=== PATIENT | male | born 1960 | race Caucasian/White ===

== ENCOUNTER 2021-09-01 08:02 | Outpatient (REF) | payer OTHER, SELFPAY ==
[2021-09-01 11:09] LABS: MANUAL DIFF FLAG NO
[2021-09-01 11:26] LABS: Basophils Percent Auto 0.6 % (0-2); Eosinophils Absolute Auto 0.2 X10*3/uL (0.0-0.4); Hemoglobin 14.3 g/dl (14.0-18.0); Imm Gran Abs Auto 0.01 X10*3/uL (0.00-0.03); Imm Gran Pct Auto 0.2 % (0.0-0.4); Lymphocytes Absolute Auto 2.1 X10*3/uL (1.2-4.9); Lymphocytes Percent Auto 38.3 % (20-40); Mean Corpuscular Hemoglobin 31.2 pg (27.0-33.0); Mean Corpuscular Volume 91.7 fL (80.0-98.0); Mean Platelet Volume 11.8 fL (9.4-12.4); Monocytes Absolute Auto 0.6 X10*3/uL (0.1-1.2); Monocytes Percent Auto 10.5 % (2-11); Neutrophils Absolute Auto 2.5 x10*3/uL (2.0-8.3); Neutrophils Percent Auto 46.4 % (45-73); Platelet Count 143 X10*3/uL (160-400); Red Blood Count 4.58 X10*6/uL (4.60-5.80); Red Cell Distribution Width 12.4 % (11.0-16.0); White Blood Count 5.5 X10*3/uL (4.8-10.8)
[2021-09-01 11:56] LABS: Anion Gap 12 (12-20); Blood Urea Nitrogen 13 mg/dL (9-16); Calcium 9.2 mg/dL (8.4-10.2); Carbon Dioxide 26 mmol/L (22-29); Chloride 106 mmol/L (96-108); Cholesterol 232 mg/dL; Estimated Glomerular Filt Rate > 60; Glucose Fasting 116 mg/dL (60-99); HDL Cholesterol 32 mg/dL; LDL Cholesterol Calculated 186 mg/dl; Potassium 4.3 mmol/L (3.3-5.1); Sodium 140 mmol/L (135-145); Triglycerides 72 mg/dL
[2021-09-01 12:00] LABS: Estimated Average Glucose 105 mg/dL; Hemoglobin A1c % 5.3 %
[2021-09-02 22:46] LABS: Prolactin 13.5 ng/mL (2.0-18.0)
== END 2021-09-01 08:03 | disposition home or self-care (01) ==
LOC: HO.HMGCLDS 08:02
PROVIDERS: Visit Provider Clinical Nurse Specialist Psychiatric/Mental Health, Child & Adolescent
DX: F41.1 Generalized anxiety disorder (principal); Z51.81 Encounter for therapeutic drug level monitoring
CPT/HCPCS: 36415; 80048; 80061; 83036; 84146; 85025

== ENCOUNTER 2024-09-06 18:47 | Inpatient (IN) | payer OTHER, SELFPAY ==
[2024-09-06] VITALS (11 sets, daily range): BP systolic 103–149; BP diastolic 48–73; PULSE 94–125; RESP 24–35; TEMP 37.1–38.3; O2SAT 92–96; BMI 30.6
--- NOTE | 2024-09-06 | ECG_ITS ---
Test Reason : tachy Blood Pressure : */* mmHG Vent. Rate : 98 BPM Atrial Rate : 98 BPM P-R Int : 118 ms QRS Dur : 142 ms QT Int : 394 ms P-R-T Axes : 56 80 43 degrees QTcB Int : 503 ms Sinus rhythm with Premature atrial complexes Possible Left atrial enlargement Right bundle branch block Abnormal ECG When compared with ECG of 06-Sep-2024 23:16, Premature atrial complexes are now Present Referred By: Norma Benítez Electronically Signed By: GINA SHERWOOD MD
--- NOTE | ~2024-09-06 | CT_ITS ---
CLINICAL HISTORY: malignant OM left? CT head with contrast Comparison: None Findings: Scattered subcortical and periventricular hypoattenuation, likely in keeping with chronic small vessel ischemic disease. Parenchymal volume loss with compensatory prominence of the ventricles and CSF spaces. No acute territorial infarction, intracranial hemorrhage, midline shift or hydrocephalus. Small air-fluid level in the left sphenoid sinus may reflect sinusitis Right mastoid, middle ear effusions and diffuse opacification. There is diffuse lobulated enhancement with soft tissue thickening along the right external auditory canal, with effacement of the external auditory canal. Diffuse soft tissue edema along the cartilaginous portions of the right external ear. There is a small oval-shaped peripherally enhancing 7 mm collection along the anterior inferior aspect of the cartilaginous ear series 8, image 230 concerning for abscess. Minimal lobulated soft tissue in the left external auditory canal may reflect cerumen, nonspecific. The orbits are within normal limits. No skull fracture. IMPRESSION: 1. No acute intracranial hemorrhage or territorial infarction. 2. Abnormal findings in the right mastoid air cells, middle and external ear. Favor otitis media, externa with soft tissue abscess, and mastoiditis. Cholesteatoma amongst other etiologies not excluded either. Clinical correlation with the ENT consult advised. This document has been electronically signed by: Fred Birmingham MD on 09/06/2024 21:59:47
--- NOTE | ~2024-09-06 | XR_ITS ---
EXAMINATION: XR CHEST 1 VIEW HISTORY: hypoxia COMPARISON: Comparison is made with the prior examination dated 09/06/2024. FINDINGS: A single AP portable view of the chest performed at 12:39 PM is submitted. There is patchy increased density in the right mid to upper lung zone, suggestive of pneumonia. The left lung is clear. There is no pleural effusion, pneumothorax, or pulmonary vascular congestion. The heart is normal in size given technique. There is degenerative disc disease of the spine. XR/XR chest 1V IMPRESSION: Patchy increased density in the right mid to upper lung zone, suggestive of pneumonia. Follow-up is recommended. Electronically signed by: Femi Moore MD 09/07/2024 12:52 PM EDT
--- NOTE | ~2024-09-06 | CT_ITS ---
CLINICAL HISTORY: septic, better diff. cxr CT chest with contrast Comparison: None Findings: Cardiomegaly with small pericardial effusion. Coronary artery calcifications. Right anterior epicardial fluid density lobulated focus measuring 4 cm on coronal, closely abutting the pericardium. Finding may reflect a pericardial cyst. If clinical concern persists consider follow-up MRI. Diffuse esophageal mural thickening, nonspecific. Ill-defined tree-in-bud nodularity along the posterior aspects of the dependent upper lobes. Scattered isolated pulmonary nodules, measuring no more than 5 mm. Per Fleischner criteria: Low-risk patients: No routine follow-up required. High-risk patients: Optional CT at 12 months. No significant pleural effusion or pneumothorax. Please see same day CT abdomen pelvis report. Osteopenia with diffuse multilevel spondylosis. Diffuse atheromatous plaque disease throughout the aorta and branch vessels, without aneurysmal dilatation. IMPRESSION: 1. Ill-defined tree-in-bud nodularity along the posterior aspects of the dependent upper lobes. Aspiration or endobronchial pneumonia suspected. Attention on follow-up. 2. Additional findings as described. This document has been electronically signed by: Fred Birmingham MD on 09/07/2024 02:15:32
--- NOTE | ~2024-09-06 | MR_ITS ---
EXAMINATION: MR BRAIN WITHOUT AND WITH CONTRAST CLINICAL INFORMATION: COMPARISON: None available. TECHNIQUE: Multiplanar, multisequence MRI of the brain was obtained before and after the intravenous administration of mL . FINDINGS: Exam is moderately motion degraded on multiple pulsing sequences. This limits the sensitivity of the study. There is no intracranial diffusion restriction. There is diffusion restriction within the left superior ophthalmic vein suggesting thrombosis. There is no intracranial hemorrhage, acute infarction, mass effect, or edema. Ventricles, sulci, and cisterns are normal in size and configuration for patient age. No shift of midline. No abnormal hemosiderin deposition is identified. There are a few scattered punctate and minimally confluent foci of white matter T2 hyperintensity in the periventricular, subcortical, and hemispheric deep white matter, nonspecific. Midline structures appear normally formed. The pituitary gland appears normal. Posterior fossa structures appear normal. Cerebellar tonsils are appropriately located. Major flow voids are preserved within the skull base. There is high signal within the right sphenoparietal sinus (series 9, image 11), suggesting thrombosis. There is minimal left lobe proptosis. There is edema throughout the intra and extraconal left orbital fat. There is mild enlargement of the extraocular muscles, and mild enlargement of the superior ophthalmic vein. Of note there is loss of the flow void within the superior ophthalmic vein. There is preseptal soft tissue edema overlying the left orbit. Edema and enlargement of the right temporalis muscle is noted. There is minimal edema within the left suprazygomatic temporalis muscle as well. Right mastoid effusion is present extending throughout the right tympanic cavity. Mastoiditis is a consideration. Mild edema fluid in the TM joints bilaterally, and mild edema throughout compound specialist spaces bilaterally, uncertain significance or etiology. There is soft tissue edema and thickening of the external right ear soft tissues. Paranasal sinuses demonstrate mild fluid seen throughout the ethmoid sinuses, sphenoid sinuses, and minimal mucosal thickening in the maxillary sinuses. No suspicious bone marrow changes are evident. Atlantoaxial joint is normal. MR/MR head/brain wo/w con IMPRESSION: Moderately motion degraded examination. 1. No evidence of intracranial hemorrhage, acute infarction, mass effect, or edema. 2. Abnormalities of the left orbit including mild enlargement of the extraocular muscles, mild edema throughout the intra and extraconal fat, loss of the normal flow void of the superior ophthalmic vein, mild enlargement of the left superior ophthalmic vein, minimal left lobe proptosis, and left preseptal soft tissue edema. There may be thrombosis of the left superior ophthalmic vein. These findings all highly suggest LEFT cavernous sinus thrombosis although signal abnormalities in the actual left cavernous sinuses are not well seen. This could be due to motion. 3. Right mastoid tympanic space effusion and cerumen impaction in the right EAC. 4. There is edema and swelling throughout the right temporalis muscle, and involving the right greater than left muscles of mastication. This is of uncertain etiology, although direct extension of right mastoiditis is a consideration, as is RIGHT cavernous sinus thrombosis as well. 5. High signal within the right sphenoparietal sinus is also present suggesting thrombosis. 6. There is soft tissue edema and thickening of the external right ear soft tissues, suggesting otitis externa as well. Above findings communicated to via secure text at 12:05 PM, 07/10/2024, who indicated understanding of the findings. Electronically signed by: Abisai Austin MD 09/07/2024 12:09 PM EDT
--- NOTE | ~2024-09-06 | MR_ITS ---
EXAMINATION: MR MAMMOGRAPHY BRAIN WITH CONTRAST CLINICAL INFORMATION: Mastoiditis, left eye swelling, rule out cavernous sinus thrombosis. COMPARISON: None. Correlation made with MR brain 09/07/2024. TECHNIQUE: MR angiography of the brain was performed using 3-D [id number] and postcontrast dynamic sequences, both before and after the administration of 10 mL of IV Gadavist. FINDINGS: There is normal flow related enhancement within the major cortical and dural venous sinuses. There is no evidence of dural venous thrombosis. No filling defects identified. There is normal flow-related enhancement within both superior ophthalmic veins, although the left superior ophthalmic vein appears slightly enlarged. This can be a secondary finding for cavernous sinuses thrombosis. Please refer to the dedicated MRI postcontrast brain performed concurrently. MR/MR venography head wo/w con IMPRESSION: 1. Normal flow related enhancement in the major cortical and dural venous sinuses. 2. No filling defects are identified. 3. Normal flow related enhancement within the superior ophthalmic veins bilaterally although the left superior ophthalmic vein is slightly enlarged in comparison with the right, a finding which can be associated with cavernous sinus thrombosis. Please refer to the dedicated postcontrast MRI performed concurrently. Electronically signed by: Abisai Austin MD 09/07/2024 11:43 AM EDT
--- NOTE | ~2024-09-06 | CT_ITS ---
CLINICAL HISTORY: pain, new thrombocytopenia, septic CT abdomen and pelvis with contrast Comparison: None Findings: Motion and streak artifact limit evaluation. Diffuse esophageal mural thickening, nonspecific. Gynecomastia. Please see same day CT chest report. Hepatomegaly. Splenomegaly. Distended gallbladder. Thickening of the adrenal glands, nonspecific. Bilateral perinephric stranding, nonspecific. Right-sided hypodense renal cysts. No urolithiasis or hydronephrosis. Distended stomach with air-fluid level. No bowel obstruction. Fat containing umbilical hernia. Diffuse atheromatous plaque disease throughout the aorta and branch vessels, without aneurysmal dilatation. 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 Prostatomegaly noted. Scattered colonic diverticulosis without diverticulitis or colitis. Bladder is decompressed with mural thickening, nonspecific. Osteopenia with diffuse multilevel spondylosis. Chronic appearing mild vertebral body height loss at L3 with vertebral body hemangioma. Sacralization of the L5. IMPRESSION: No acute findings. Additional findings described, please see above. This document has been electronically signed by: Fred Birmingham MD on 09/06/2024 21:49:52
--- NOTE | ~2024-09-06 | XR_ITS ---
CLINICAL HISTORY: sob 1 view chest x-ray Comparison: None Findings: Bilateral infrahilar patchy opacities. Left basilar atelectasis. No significant pleural effusion or pneumothorax. Prominent cardiac silhouette. No acute fracture. IMPRESSION: 1. Bilateral infrahilar patchy opacities, correlation for pneumonia or aspiration advised. 2. Left basilar atelectasis. This document has been electronically signed by: Fred Birmingham MD on 09/06/2024 20:16:21
--- NOTE | 2024-09-06 19:26 | ED_ITS ---
HPI - General Adult General Chief complaint: Altered Mental Status Stated complaint: Allergic reaction to tylenol Time Seen by Provider: 09/06/24 19:10 Source: patient and family Limitations: other (confusion) History of Present Illness ED Provider: Renee Early PA-C HPI narrative: 63-year-old male with a history of prior alcohol abuse, anxiety, no other comorbidities to his or family's knowledge, presents with confusion. Patient is currently being treated for right ear infection x 3 days, he has slowly become more weak, and has not been eating or drinking. He also developed swelling of the left eye this morning. The patient has no physical concerns complaints himself, with the exception of right ear pain. History limited as the patient was somewhat confused. Related Data Home Medications ?Medication ?Instructions ?Recorded ?Confirmed carbamide peroxide 6.5 % ear drops 5 drp otic (ears) BID prn 09/07/24 09/07/24 (Murine Ear) fluoxetine 40 mg capsule 40 mg PO DAILY 09/07/24 09/07/24 ofloxacin 0.3 % ear drops 10 drp otic (ear) right DAILY 09/07/24 09/07/24 risperidone 0.5 mg tablet 0.5 mg PO BID 09/07/24 09/07/24 Previous Rx's ?Medication ?Instructions ?Recorded Vancomycin Consult Rx Dosing 1 ea miscellaneous DAILY #1 ea 09/07/24 [Consult Rx Vancomycin Dosing] caspofungin 50 mg intravenous 50 mg IV Q24H #1 ea 09/07/24 solution ([place]) erythromycin 5 mg/gram (0.5 %) eye 1 cm ophthalmic-Left QID #1 g 09/07/24 ointment ipratropium 0.5 mg-albuterol 3 mg 3 ml inhalation Q4H PRN Shortness 09/07/24 (2.5 mg base)/3 mL nebulization Of Breath/Wheezing #1 mL soln meropenem 1 gram intravenous 2 g IVPUSH Q8H #1 ea 09/07/24 solution Allergies Allergy/AdvReac Type Severity Reaction Status Date / Time No Known Allergies Allergy Verified 09/06/24 19:27 [No Known Allergies*] Review of Systems 2 Review of Systems: Yes all other systems are reviewed and are negative Constitutional: Constitutional: Reports fatigue, Reports fever(s) and Reports malaise Eyes: Eyes: Reports eye discharge ENT: Reports otalgia Cardiovascular: Cardiovascular: Denies chest pain and Denies dyspnea Respiratory: Respiratory: Denies chest congestion, Denies cough and Denies dyspnea Gastrointestinal: Gastrointestinal: Denies abdominal pain, Denies diarrhea, Denies nausea and Denies vomiting Genitourinary: Genitourinary: Denies dysuria Endocrine: Endocrine: Reports fatigue PMFSH Past Medical History Attestation statement: The following information was validated with the patient. Social History Social History (Updated 09/07/24 @ 06:27 by Norma Benítez [facility]) Household Members: Family Housing: Apartment Alcohol intake: former Comment: pt stopped drinking 15 years ago, drank 6-8 beers per day Patient Tobacco Use Status: Never used Tobacco service: No Physical Exam ED Vital Signs: Vital Signs - 24 hr 09/06/24 19:21 09/06/24 20:00 09/06/24 20:52 Temperature 100.5 F H Pulse Rate 125 H 112 H Respiratory Rate 24 H 24 H 32 H Blood Pressure 127/59 L 135/67 Pulse Oximetry 96 92 Oxygen Delivery Method Nasal Cannula Nasal Cannula Oxygen Flow Rate 3 09/06/24 21:30 09/06/24 22:00 09/06/24 22:55 Temperature 101.0 F H Pulse Rate 116 H 117 H 94 Respiratory Rate 30 H 24 H 24 H Blood Pressure 125/60 149/59 H 136/53 L Pulse Oximetry 95 94 95 Oxygen Delivery Method Nasal Cannula Nasal Cannula Nasal Cannula Oxygen Flow Rate 3 3 3 09/06/24 23:23 09/06/24 23:27 09/06/24 23:36 Temperature 98.9 F 98.9 F 98.9 F Pulse Rate 119 H 106 H Respiratory Rate 35 H 32 H Blood Pressure 122/65 122/65 Pulse Oximetry 92 Oxygen Delivery Method Nasal Cannula Oxygen Flow Rate 3 09/06/24 23:43 09/06/24 23:45 09/07/24 01:22 Temperature 98.8 F 98.8 F 98.2 F Pulse Rate 110 H 110 H 101 H Respiratory Rate 29 H 26 H 25 H Blood Pressure 103/48 L 103/48 L 120/49 L Pulse Oximetry 92 Oxygen Delivery Method Nasal Cannula Oxygen Flow Rate 3 09/07/24 02:30 09/07/24 02:49 09/07/24 02:50 Temperature Pulse Rate 103 H Respiratory Rate 24 H Blood Pressure 114/30 L Pulse Oximetry 91 L 87 L 92 Oxygen Delivery Method Nasal Cannula Nasal Cannula Oxymask Oxygen Flow Rate 3 3 6 09/07/24 03:22 09/07/24 03:50 Temperature 99.1 F Pulse Rate 98 105 H Respiratory Rate 27 H 28 H Blood Pressure 113/58 L 117/56 L Pulse Oximetry 92 93 Oxygen Delivery Method Oxymask Oxymask Oxygen Flow Rate 6 6 BMI result Body Mass Index 30.6 Const Other: Awake, ill-appearing, diaphoretic Orientation/consciousness: patient oriented x3 HENAL Other: Dry oral mucosa including lips and tongue. No tragal tenderness of the right ear, I see a wall of white, can not visualize the TM, the external ear canal is not erythematous. The left external ear canal is full of cerumen and appears erythematous, I can not visualize the left TM, no tragal tenderness, no palpable pain over the right mastoid, no warmth or erythema no swelling Eyes Other: Left palpebral conjunctiva are injected and edematous, the sclera is not injected, ocular discharge noted Resp Other: Bibasilar crackles noted right greater than left Cardio Other: Normal peripheral perfusion GI Other: Abdomen is soft, nondistended, mild to moderate tenderness that has random, without guarding stool is brown in color no melena no bright red blood per rectum Skin Other: Diaphoretic Neuro General: patient oriented x3, no focal motor deficits and CN's II-XI intact bilaterally Psych Other: Cooperative Course Reevaluation(s) Reevaluation #1: ?focused exam for sepsis performed on 09/04/2024, time stamped at 1926, which is listed below .....Sepsis identified, patient was febrile, tachy, in addition to screening labs we will be adding blood cultures, lactic, starting weight based IV fluid and ceftriaxone. He is 90% on room air, respiratory source is the likely cause, Time: 19:26 Reevaluation #2: ?focused exam for sepsis performed on 09/06 at 2018 which is also time stamped below .......Severe sepsis, lactic 5.1, although it also could be due to lab error, the tourniquet was in place when nursing staff was drawing the lab. Transitioning antibiotics to vancomycin and Zosyn Time: 20:18 Reevaluation #3: 2106 patient was critically thrombocytopenic at 7, we will be consenting for platelet transfusion, ordering platelets. The patient's sister is signing consent for him 2212 guaiac-positive stool 2316 patient's rate jumped to 200 on the monitor, he is asymptomatic, obtaining an EKG......... By the time we get the EKG which is just minutes later, his rate drops to 121...qtc 511, adding 2 gm magnesium 2328 Paged [facility] for consult. Dr. De León..... I reviewed results of the CT scan with her, she does not feel the patient has mastoiditis. The patient has no focal pain within this region, there was no overlying swelling, redness. She states despite what the CT scan reveals, this is not mastoiditis. She does not feel the patient requires a transfer to [facility], there is no surgical intervention. She does recommend obtaining a culture of the ear, which we already did, and placing an ear wick, I explained that we have moxifloxacin drops, she states that is sufficient. We will admit the patient here Also, the patient is improving, his mentation has improved, he was more alert, his blood pressure has been stable the entire duration, his heart rate is decreasing, his fever is resolving, Time: 23:28 Consultations Consultation #1: Dr. Molina....... I explained the situation, she recommends PT INR, no further recommendation Time: 21:46 Medications Administered Discontinued Medications Generic Name Dose Route Start Last Admin Trade Name Jennifer PRN Reason Stop Dose Admin Acetaminophen 975 mg 09/06/24 21:35 09/06/24 21:39 Acetaminophen 325 Mg Tablet PO 09/06/24 21:36 975 mg ONCE ONE Administration Ceftriaxone Sodium 2 gm 09/06/24 19:12 09/06/24 19:48 Ceftriaxone Sodium 2 Gm Vial IVPUSH 09/06/24 19:13 2 gm ONCE ONE Administration Erythromycin 1 cm 09/06/24 22:14 09/06/24 22:56 Erythromycin Base 0.5% Oph Oin 1 Gm Tube EYE-LEFT 09/06/24 22:15 1 cm ONCE ONE Administration Erythromycin 1 cm 09/07/24 09:00 09/07/24 12:46 Erythromycin Base 0.5% Oph Oin 1 Gm Tube EYE-LEFT 1 cm QID ZO Administration Fluoxetine HCl 40 mg 09/07/24 09:00 09/07/24 09:14 Fluoxetine Hcl 20 Mg Capsule PO Not Given DAILY ZO Gadobutrol 10 ml 09/07/24 11:11 09/07/24 11:12 Gadobutrol 10 Ml Vial IVPUSH 09/07/24 11:12 10 ml ONCE ONE Administration Sodium Chloride 3,066 mls @ 3,066 mls/hr 09/06/24 19:26 09/06/24 21:30 Ns 30 ml/kg infuse over 1 hr (3066 ml) 09/06/24 20:25 Infused IV Infusion .Q1H STA Vancomycin HCl 1,500 mg/ 500 mls @ 333.333 mls/hr 09/06/24 20:18 09/06/24 22:56 Sodium Chloride IV 09/06/24 21:47 Infused ONCE ONE Infusion Piperacillin Sod/Tazobactam 50 mls @ 100 mls/hr 09/06/24 20:18 09/06/24 21:33 Sod 3.375 gm/ Sodium Chloride IV 09/06/24 20:47 Infused ONCE ONE Infusion Magnesium Sulfate 2 gm in 50 mls @ 25 mls/hr 09/06/24 23:21 09/07/24 01:12 Magnesium Sulfate/H2o IV 09/07/24 01:20 Infused ONCE ONE Infusion Albumin Human 100 mls @ 133.333 mls/hr 09/06/24 23:45 09/07/24 03:23 Kedbumin 25 % IV 09/07/24 01:29 Infused Q1H ZO Infusion Sodium Chloride 1,000 mls @ 125 mls/hr 09/07/24 04:30 09/07/24 07:10 Ns IVCONT 09/07/24 12:29 Infused .Q8H ZO Infusion Piperacillin Sod/Tazobactam 100 mls @ 200 mls/hr 09/07/24 07:00 09/07/24 07:26 Sod 4.5 gm/ Sodium Chloride IV Infused Q6H ZO Infusion Vancomycin HCl 1,250 mg/ 250 mls @ 166.667 mls/hr 09/07/24 09:00 09/07/24 11:13 Sodium Chloride IV Not Given Q12H ZO Cefepime HCl 2 gm in 50 mls @ 100 mls/hr 09/07/24 09:15 09/07/24 11:13 Maxipime IV Not Given Q8H ZO Vancomycin HCl 1,250 mg/ 250 mls @ 166.667 mls/hr 09/07/24 11:00 09/07/24 13:11 Sodium Chloride IV Infused Q12H ZO Infusion Cefepime HCl 2 gm in 50 mls @ 100 mls/hr 09/07/24 11:15 09/07/24 11:57 Maxipime IV Infused Q8H ZO Infusion Iohexol 85 ml 09/06/24 20:40 09/06/24 20:41 Iohexol 350 Mg/Ml 100 Ml Infus..Btl IV 09/06/24 20:41 85 ml ONCE ONE Administration Ketorolac Tromethamine 15 mg 09/06/24 19:24 09/06/24 19:47 Ketorolac Tromethamine 15 Mg/Ml Vial IVPUSH 09/06/24 19:25 15 mg ONCE ONE Administration Lorazepam 0.5 mg 09/07/24 09:15 09/07/24 09:40 Lorazepam 0.5 Mg Tablet PO 09/07/24 09:16 0.5 mg ONCE ONE Administration Moxifloxacin HCl 1 drop 09/06/24 22:44 09/06/24 23:37 Moxifloxacin Hcl 0.5 % Oph Pratima 3 Ml Drpbtl EYE-RIGHT 09/06/24 22:45 1 drop ONCE ONE Administration Moxifloxacin HCl 1 drop 09/07/24 09:00 09/07/24 11:19 Moxifloxacin Hcl 0.5 % Oph Pratima 3 Ml Drpbtl EYE-RIGHT 09/14/24 04:29 1 drop TID ZO Administration Ondansetron HCl 4 mg 09/06/24 20:05 09/06/24 20:08 Ondansetron Hcl 4 Mg/2 Ml Vial IVPUSH 09/06/24 20:06 4 mg ONCE ONE Administration Pantoprazole Sodium 40 mg 09/07/24 06:30 09/07/24 06:45 Pantoprazole Sodium 40 Mg/10 Ml Vial IVPUSH 40 mg BID@0630,1630 ZO Administration Risperidone 0.5 mg 09/07/24 09:00 09/07/24 09:14 Risperidone 0.5 Mg Tablet PO Not Given BID ZO Sodium Chloride 3 ml 09/07/24 08:00 09/07/24 07:26 0.9 % Sodium Chloride Flush 3 Ml Syringe IVFLUSH Not Given QSHIFT [facility] Medical Decision Making Medical Decision Making [facility] Narrative: 63-year-old male with a history of prior alcohol abuse, anxiety, no other comorbidities to his or family's knowledge, presents with confusion. Patient is currently being treated for left ear infection x 3 days, he has slowly become more weak, and has not been eating or drinking. The patient has no physical concerns complaints himself, with the exception of left ear pain. History limited as the patient was somewhat confused. Problem: Underlying ear infection History: Per patient which is limited and family I have considered the following differential diagnoses: Sepsis, pneumonia, UTI, viral syndrome, malignant otitis media, mastoiditis Plan: Very concerned for sepsis, the patient was tachycardic, he is febrile, his pressures are stable. We will be initiating the protocol. In addition to broad labs, adding blood cultures, lactic acid, UA chest x-ray, viral panel. I am also scanning his head, he may have developed malignant otitis media versus mastoiditis. Although on exam he has no palpable pain over the mastoid. We will be giving weight based IV fluid, starting ceftriaxone. I am also able to elicit pain on my abdominal exam, it is somewhat generalized, given the patient is a poor historian, in his ill in appearance, I will scan his abdomen. Incidentally, the patient developed evidence of conjunctivitis of the left eye, we will treat with the erythromycin, he has no known risk factors for Pseudomonas. I have independently reviewed the following tests: labs: No overall leukocytosis, left shift noted, bandemia noted, not anemic, platelet count of 7, no electrolyte abnormality, lactate 5.1, he bili 3.1, direct 2.2, negative for influenza RSV and COVID, urine infected, repeat lactic 3.6, guaiac positive. EKG: Sinus tachycardia, rate of 121, right bundle branch block, no ischemic changes, no ectopy, QTC 511 CXR: MPRESSION: 1. Bilateral infrahilar patchy opacities, correlation for pneumonia or aspiration advised. 2. Left basilar atelectasis. CT brain: :MPRESSION: 1. No acute intracranial hemorrhage or territorial infarction. 2. Abnormal findings in the right mastoid air cells, middle and external ear. Favor otitis media, externa with soft tissue abscess, and mastoiditis. Cholesteatoma amongst other etiologies not excluded either. Clinical correlation with the ENT consult advised. CT chest: IMPRESSION: 1. Ill-defined tree-in-bud nodularity along the posterior aspects of the dependent upper lobes. Aspiration or endobronchial pneumonia suspected. Attention on follow-up. 2. Additional findings as described. CT abd/pelvis: IMPRESSION: No acute findings. Additional findings described, please see above. Lab Data 09/07/24 05:58 09/07/24 05:58 Labs: Lab Results 09/06/24 09/06/24 09/06/24 Range/Units 19:21 21:07 21:45 WBC 10.2 (4.8-10.8) X10*3/uL RBC 4.30 L (4.60-5.80) X10*6/uL Hgb 13.7 L (14.0-18.0) g/dl Hct 37.7 L (42.0-52.0) % MCV 87.7 (80.0-98.0) fL MCH 31.9 (27.0-33.0) pg MCHC 36.3 H (31.0-36.0) g/dl RDW 13.0 (11.0-16.0) % Plt Count 7 L* D (160-400) X10*3/uL MPV Not Reportable Immature Gran % (Auto) Cancelled Neut % (Auto) Cancelled Lymph % (Auto) Cancelled [place] % (Auto) Cancelled Eos % (Auto) Cancelled Baso % (Auto) Cancelled Lymph # (Auto) Cancelled [place] # (Auto) Cancelled Eos # (Auto) Cancelled Baso # (Auto) Cancelled Abs Immat Gran (auto) Cancelled Absolute Neuts (auto) Cancelled Absolute Nucleated RBC 0.000 (0.0-0.012) X10*3/uL Nucleated RBC % (auto) 0.0 (0.0-0.2) /100WBC Neutrophils % (Manual) 75 H (45-73) % Band Neutrophils % 14 H (3-5) % Lymphocytes % (Manual) 5 L (20-40) % Monocytes % (Manual) 3 (2-11) % Metamyelocytes % 1 % Myelocytes % 2 % Abs Neuts (Manual) 9.1 H (2.0-8.3) X10*3/uL Lymphocytes # (Manual) 0.5 L (1.2-4.9) X10*3/uL Monocytes # (Manual) 0.3 (0.1-1.2) X10*3/uL Metamyelocytes # 0.1 X10*3/uL Myelocytes # 0.2 X10*/uL Smudge Cells PRESENT Toxic Granulation PRESENT Toxic Vacuolation PRESENT Platelet Estimate DECREASED (NORMAL) Plt Morphology Comment NORMAL RBC Morphology NOTED Microcytosis 3+ (>30) /OIF [place] Cells 3+ (>5) /OIF Schistocytes 3+ (>5) /OIF Smear Path Review SEE NOTE ESR 34 H (0-15) MM/HR Absolute Retic 0.040 (0.026-0.095) X10*6/uL Percent Retic 0.9 (0.5-1.8) % Immature Retic Fraction 10.0 (2.3-13.4) % Retic Hgb Equivalent 29.7 L (30.0-35.0) pg PT (10.9-12.4) SEC INR (0.9-1.1) Fibrinogen (259-690) MG/DL Sodium 136 (135-145) mmol/L Potassium 4.0 (3.3-5.1) mmol/L Chloride 104 (96-108) mmol/L Carbon Dioxide 19 L (22-29) mmol/L Anion Gap 17 (12-20) BUN 49 H (9-16) mg/dL Creatinine 1.24 (0.5-1.4) mg/dL Estim Creat Clear Calc 76.3 Estimated GFR 59 POC Glucose (60-115) mg/dL Random Glucose 117 H (60-115) mg/dL Haptoglobin 106 (40-268) mg/dL Lactic Acid 5.1 H* (0.5-2.0) mmol/L Lactic Acid F/U @ 2Hr (0.5-2.0) mmol/L Lactic Acid F/U @ 4Hr (0.5-2.0) mmol/L Calcium 8.7 (8.4-10.2) mg/dL Magnesium 1.6 (1.6-2.6) mg/dL Total Bilirubin 3.1 H (0.0-1.0) mg/dL Direct Bilirubin 2.2 H (0.0-0.5) mg/dL AST 38 H (5-37) U/L ALT 26 (0-40) U/L Alkaline Phosphatase 221 H (39-117) U/L Lactate Dehydrogenase 270 (118-273) U/L C-Reactive Protein 16.07 H (< or = 0.50) mg/dL Total Protein 5.6 L (6.5-8.0) g/dL Albumin 2.9 L (3.5-5.0) g/dL Urine Color Dark Yellow Urine Appearance Clear Urine pH 5.5 (5.0-9.0) Ur Specific [place] >= 1.030 H (1.005-1.025) Urine Protein 30 (1+) H (Neg-Trace) mg/dL Urine Glucose (UA) Negative (Negative) mg/dL Urine Ketones Trace (Negative) mg/dL Urine Blood Negative (Negative) Urine Nitrite Positive H (Negative) Ur Leukocyte Esterase Trace H (Negative) Urine RBC 0-2 (0-2) /HPF Urine WBC 0-5 (0-5) /HPF Ur Squamous Epith Cells 6-10 (0-2) /HPF Urine Bacteria None Seen (None Seen) Hyaline Casts 0-2 (0-2) /LPF Stool Occult Blood (NEGATIVE) Respiratory Panel [place] See Note Adenovirus (Rapid PCR) Not Detected (Not Detect.) B.pert (TEM-PCR) Not Detected (Not Detect.) B.parapertussis DNA PCR Not Detected (Not Detect.) C. pneumoniae DNA (PCR) Not Detected (Not Detect.) Coronavirus OC43 (PCR) Not Detected (Not Detect.) Coronavirus HKU1 (PCR) Not Detected (Not Detect.) Coronavirus 229E (PCR) Not Detected (Not Detect.) Coronavirus NL63 (PCR) Not Detected (Not Detect.) Human Metapneumovir PCR Not Detected (Not Detect.) Influenza A (RT-PCR) Not Detected (Not Detect.) Influenza A (H1) PCR Not Detected (Not Detect.) Influ A (H1/09) PCR Not Detected (Not Detect.) Influenza A (H3) PCR Not Detected (Not Detect.) Influenza Type A (PCR) NEGATIVE (Negative) Influenza B (RT-PCR) Not Detected (Not Detect.) Influenza Type B (PCR) NEGATIVE (Negative) M. pneumoniae (PCR) Not Detected (Not Detect.) Parainfluenza 1 (PCR) Not Detected (Not Detect.) Parainfluenza 2 (PCR) Not Detected (Not Detect.) Parainfluenza 3 (PCR) Not Detected (Not Detect.) Parainfluenza 4 (PCR) Not Detected (Not Detect.) RSV (PCR) Not Detected (Not Detect.) RSV RNA Qual (PCR) NEGATIVE (Negative) Entero/Rhino (PCR) Not Detected (Not Detect.) SARS-CoV-2 RNA (RT-PCR) NEGATIVE Not Detected (Negative) Blood Type A Negative Antibody Screen NEGATIVE 09/06/24 09/06/24 09/06/24 Range/Units 22:09 22:13 23:20 WBC (4.8-10.8) X10*3/uL RBC (4.60-5.80) X10*6/uL Hgb (14.0-18.0) g/dl Hct (42.0-52.0) % MCV (80.0-98.0) fL MCH (27.0-33.0) pg MCHC (31.0-36.0) g/dl RDW (11.0-16.0) % Plt Count (160-400) X10*3/uL MPV Immature Gran % (Auto) Neut % (Auto) Lymph % (Auto) [place] % (Auto) Eos % (Auto) Baso % (Auto) Lymph # (Auto) [place] # (Auto) Eos # (Auto) Baso # (Auto) Abs Immat Gran (auto) Absolute Neuts (auto) Absolute Nucleated RBC (0.0-0.012) X10*3/uL Nucleated RBC % (auto) (0.0-0.2) /100WBC Neutrophils % (Manual) (45-73) % Band Neutrophils % (3-5) % Lymphocytes % (Manual) (20-40) % Monocytes % (Manual) (2-11) % Metamyelocytes % % Myelocytes % % Abs Neuts (Manual) (2.0-8.3) X10*3/uL Lymphocytes # (Manual) (1.2-4.9) X10*3/uL Monocytes # (Manual) (0.1-1.2) X10*3/uL Metamyelocytes # X10*3/uL Myelocytes # X10*/uL Smudge Cells Toxic Granulation Toxic Vacuolation Platelet Estimate (NORMAL) Plt Morphology Comment RBC Morphology Microcytosis /OIF [place] Cells /OIF Schistocytes /OIF Smear Path Review ESR (0-15) MM/HR Absolute Retic (0.026-0.095) X10*6/uL Percent Retic (0.5-1.8) % Immature Retic Fraction (2.3-13.4) % Retic Hgb Equivalent (30.0-35.0) pg PT 15.1 H (10.9-12.4) SEC INR 1.3 H (0.9-1.1) Fibrinogen > 700 H (259-690) MG/DL Sodium (135-145) mmol/L Potassium (3.3-5.1) mmol/L Chloride (96-108) mmol/L Carbon Dioxide (22-29) mmol/L Anion Gap (12-20) BUN (9-16) mg/dL Creatinine (0.5-1.4) mg/dL Estim Creat Clear Calc Estimated GFR POC Glucose (60-115) mg/dL Random Glucose (60-115) mg/dL Haptoglobin (40-268) mg/dL Lactic Acid (0.5-2.0) mmol/L Lactic Acid F/U @ 2Hr 3.6 H* (0.5-2.0) mmol/L Lactic Acid F/U @ 4Hr (0.5-2.0) mmol/L Calcium (8.4-10.2) mg/dL Magnesium (1.6-2.6) mg/dL Total Bilirubin (0.0-1.0) mg/dL Direct Bilirubin (0.0-0.5) mg/dL AST (5-37) U/L ALT (0-40) U/L Alkaline Phosphatase (39-117) U/L Lactate Dehydrogenase (118-273) U/L C-Reactive Protein (< or = 0.50) mg/dL Total Protein (6.5-8.0) g/dL Albumin (3.5-5.0) g/dL Urine Color Urine Appearance Urine pH (5.0-9.0) Ur Specific [place] (1.005-1.025) Urine Protein (Neg-Trace) mg/dL Urine Glucose (UA) (Negative) mg/dL Urine Ketones (Negative) mg/dL Urine Blood (Negative) Urine Nitrite (Negative) Ur Leukocyte Esterase (Negative) Urine RBC (0-2) /HPF Urine WBC (0-5) /HPF Ur Squamous Epith Cells (0-2) /HPF Urine Bacteria (None Seen) Hyaline Casts (0-2) /LPF Stool Occult Blood POSITIVE (NEGATIVE) Respiratory Panel [place] Adenovirus (Rapid PCR) (Not Detect.) B.pert (TEM-PCR) (Not Detect.) B.parapertussis DNA PCR (Not Detect.) C. pneumoniae DNA (PCR) (Not Detect.) Coronavirus OC43 (PCR) (Not Detect.) Coronavirus HKU1 (PCR) (Not Detect.) Coronavirus 229E (PCR) (Not Detect.) Coronavirus NL63 (PCR) (Not Detect.) Human Metapneumovir PCR (Not Detect.) Influenza A (RT-PCR) (Not Detect.) Influenza A (H1) PCR (Not Detect.) Influ A (H1/09) PCR (Not Detect.) Influenza A (H3) PCR (Not Detect.) Influenza Type A (PCR) (Negative) Influenza B (RT-PCR) (Not Detect.) Influenza Type B (PCR) (Negative) M. pneumoniae (PCR) (Not Detect.) Parainfluenza 1 (PCR) (Not Detect.) Parainfluenza 2 (PCR) (Not Detect.) Parainfluenza 3 (PCR) (Not Detect.) Parainfluenza 4 (PCR) (Not Detect.) RSV (PCR) (Not Detect.) RSV RNA Qual (PCR) (Negative) Entero/Rhino (PCR) (Not Detect.) SARS-CoV-2 RNA (RT-PCR) (Negative) Blood Type Antibody Screen 09/06/24 09/07/24 Range/Units 23:59 01:05 WBC (4.8-10.8) X10*3/uL RBC (4.60-5.80) X10*6/uL Hgb (14.0-18.0) g/dl Hct (42.0-52.0) % MCV (80.0-98.0) fL MCH (27.0-33.0) pg MCHC (31.0-36.0) g/dl RDW (11.0-16.0) % Plt Count (160-400) X10*3/uL MPV Immature Gran % (Auto) Neut % (Auto) Lymph % (Auto) [place] % (Auto) Eos % (Auto) Baso % (Auto) Lymph # (Auto) [place] # (Auto) Eos # (Auto) Baso # (Auto) Abs Immat Gran (auto) Absolute Neuts (auto) Absolute Nucleated RBC (0.0-0.012) X10*3/uL Nucleated RBC % (auto) (0.0-0.2) /100WBC Neutrophils % (Manual) (45-73) % Band Neutrophils % (3-5) % Lymphocytes % (Manual) (20-40) % Monocytes % (Manual) (2-11) % Metamyelocytes % % Myelocytes % % Abs Neuts (Manual) (2.0-8.3) X10*3/uL Lymphocytes # (Manual) (1.2-4.9) X10*3/uL Monocytes # (Manual) (0.1-1.2) X10*3/uL Metamyelocytes # X10*3/uL Myelocytes # X10*/uL Smudge Cells Toxic Granulation Toxic Vacuolation Platelet Estimate (NORMAL) Plt Morphology Comment RBC Morphology Microcytosis /OIF [place] Cells /OIF Schistocytes /OIF Smear Path Review ESR (0-15) MM/HR Absolute Retic (0.026-0.095) X10*6/uL Percent Retic (0.5-1.8) % Immature Retic Fraction (2.3-13.4) % Retic Hgb Equivalent (30.0-35.0) pg PT (10.9-12.4) SEC INR (0.9-1.1) Fibrinogen (259-690) MG/DL Sodium (135-145) mmol/L Potassium (3.3-5.1) mmol/L Chloride (96-108) mmol/L Carbon Dioxide (22-29) mmol/L Anion Gap (12-20) BUN (9-16) mg/dL Creatinine (0.5-1.4) mg/dL Estim Creat Clear Calc Estimated GFR POC Glucose 91 (60-115) mg/dL Random Glucose (60-115) mg/dL Haptoglobin (40-268) mg/dL Lactic Acid (0.5-2.0) mmol/L Lactic Acid F/U @ 2Hr (0.5-2.0) mmol/L Lactic Acid F/U @ 4Hr 3.6 H* (0.5-2.0) mmol/L Calcium (8.4-10.2) mg/dL Magnesium (1.6-2.6) mg/dL Total Bilirubin (0.0-1.0) mg/dL Direct Bilirubin (0.0-0.5) mg/dL AST (5-37) U/L ALT (0-40) U/L Alkaline Phosphatase (39-117) U/L Lactate Dehydrogenase (118-273) U/L C-Reactive Protein (< or = 0.50) mg/dL Total Protein (6.5-8.0) g/dL Albumin (3.5-5.0) g/dL Urine Color Urine Appearance Urine pH (5.0-9.0) Ur Specific [place] (1.005-1.025) Urine Protein (Neg-Trace) mg/dL Urine Glucose (UA) (Negative) mg/dL Urine Ketones (Negative) mg/dL Urine Blood (Negative) Urine Nitrite (Negative) Ur Leukocyte Esterase (Negative) Urine RBC (0-2) /HPF Urine WBC (0-5) /HPF Ur Squamous Epith Cells (0-2) /HPF Urine Bacteria (None Seen) Hyaline Casts (0-2) /LPF Stool Occult Blood (NEGATIVE) Respiratory Panel [place] Adenovirus (Rapid PCR) (Not Detect.) B.pert (TEM-PCR) (Not Detect.) B.parapertussis DNA PCR (Not Detect.) C. pneumoniae DNA (PCR) (Not Detect.) Coronavirus OC43 (PCR) (Not Detect.) Coronavirus HKU1 (PCR) (Not Detect.) Coronavirus 229E (PCR) (Not Detect.) Coronavirus NL63 (PCR) (Not Detect.) Human Metapneumovir PCR (Not Detect.) Influenza A (RT-PCR) (Not Detect.) Influenza A (H1) PCR (Not Detect.) Influ A (H1/09) PCR (Not Detect.) Influenza A (H3) PCR (Not Detect.) Influenza Type A (PCR) (Negative) Influenza B (RT-PCR) (Not Detect.) Influenza Type B (PCR) (Negative) M. pneumoniae (PCR) (Not Detect.) Parainfluenza 1 (PCR) (Not Detect.) Parainfluenza 2 (PCR) (Not Detect.) Parainfluenza 3 (PCR) (Not Detect.) Parainfluenza 4 (PCR) (Not Detect.) RSV (PCR) (Not Detect.) RSV RNA Qual (PCR) (Negative) Entero/Rhino (PCR) (Not Detect.) SARS-CoV-2 RNA (RT-PCR) (Negative) Blood Type Antibody Screen Critical Care Time Critical Care Time Critical Care Time: Yes Total Critical Care Time: 45 Attestation: Lyn Early have personally performed 45 minutes of critical care time not including lines and procedures. Discharge Plan Discharge Clinical Impression: Sepsis, Urinary tract infection, Acute otitis media, right, Acute otitis externa of right ear, Pneumonia, Hypoxia, Acute conjunctivitis, left eye, Thrombocytopenia, Guaiac positive stools Patient Disposition: Admitted As Inpatient Interventions: Admission Worksheet (ED) Last Done: 09/07/24 06:14 Discharge Date/Time: 09/07/24 07:28
[2024-09-06] MEDS: SODIUM CHLORIDE 3066 ML IV (19:38)
[2024-09-06 19:39] LABS: Hematocrit 37.7 % (42.0-52.0); Hemoglobin 13.7 g/dl (14.0-18.0); Mean Corpuscular HGB Conc 36.3 g/dl (31.0-36.0); Mean Corpuscular Hemoglobin 31.9 pg (27.0-33.0); Mean Corpuscular Volume 87.7 fL (80.0-98.0); White Blood Count 10.2 X10*3/uL (4.8-10.8)
[2024-09-06 19:41] LABS: Platelet Count 7 X10*3/uL (160-400)
[2024-09-06] MEDS: Ketorolac Tromethamine 15 MG/ML VIAL IVPUSH (19:47)
[2024-09-06] MEDS: cefTRIAXone sodium 2 GM VIAL IVPUSH (19:48)
[2024-09-06 19:52] LABS: Alanine Aminotransferase 26 U/L (0-40); Albumin Level 2.9 g/dL (3.5-5.0); Alkaline Phosphatase 221 U/L (39-117); Anion Gap 17 (12-20); Aspartate Amino Transferase 38 U/L (5-37); Bilirubin Total 3.1 mg/dL (0.0-1.0); Blood Urea Nitrogen 49 mg/dL (9-16); C Reactive Protein 16.07 mg/dL (< or = 0.50); Calcium 8.7 mg/dL (8.4-10.2); Carbon Dioxide 19 mmol/L (22-29); Chloride 104 mmol/L (96-108); Creatinine Clr Calc Pharmacy 76.3; Estimated Glomerular Filt Rate 59; Glucose Random 117 mg/dL (60-115); Magnesium 1.6 mg/dL (1.6-2.6); Sodium 136 mmol/L (135-145); Total Protein 5.6 g/dL (6.5-8.0)
[2024-09-06 19:59] LABS: Lactic Acid 5.1 mmol/L (0.5-2.0)
[2024-09-06 20:05] LABS: Influenza A PCR NEGATIVE (Negative); Influenza B PCR NEGATIVE (Negative); Resp Syncy Virus RNA Qual PCR NEGATIVE (Negative); SARS COV2 PCR INHOUSE NEGATIVE (Negative)
[2024-09-06] MEDS: ondansetron HCL 4 MG/2 ML VIAL IVPUSH (20:08)
[2024-09-06] MEDS: Piperacillin Sodium/Tazobactam 3.375 GM in 0.9 % Sodium Chloride 50 ML IV (20:26)
[2024-09-06 20:32] LABS: Neutrophils Percent Manual 75 % (45-73)
--- NOTE | 2024-09-06 20:38 | PC.NURSE ---
patient to CT at this time.
[2024-09-06 20:39] LABS: Band Neutrophils Percent 14 % (3-5); Lymphocytes Absolute Manual 0.5 X10*3/uL (1.2-4.9); Lymphocytes Percent Manual 5 % (20-40); Metamyelocytes Absolute 0.1 X10*3/uL; Metamyelocytes Percent 1 %; Microcytosis 3+ (>30) /OIF; Monocytes Absolute Manual 0.3 X10*3/uL (0.1-1.2); Monocytes Percent Manual 3 % (2-11); Myelocytes Absolute 0.2 X10*/uL; Myelocytes Percent 2 %; Neutrophils Absolute Manual 9.1 X10*3/uL (2.0-8.3); RBC Morphology NOTED
[2024-09-06 20:40] LABS: Burr Cells 3+ (>5) /OIF; Platelet Estimate DECREASED (NORMAL); Platelet Morphology Comment NORMAL; Schistocytes 3+ (>5) /OIF
[2024-09-06 20:41] LABS: Smudge Cells PRESENT; Toxic Vacuolation PRESENT
[2024-09-06] MEDS: iohexoL 350 MG/ML 100 ML INFUS..BTL 85 ML IV (20:41)
--- NOTE | 2024-09-06 20:42 | PC.NURSE ---
Informed KRISTA Rutherford of critical value of cbc bands- 14.
[2024-09-06 20:43] LABS: Toxic Granulation PRESENT
[2024-09-06 20:51] LABS: Erythrocyte Sedimentation Rate 34 MM/HR (0-15)
[2024-09-06 20:58] LABS: Bilirubin Direct 2.2 mg/dL (0.0-0.5)
[2024-09-06] MEDS: vancomycin HCL 1,500 MG in 0.9 % Sodium Chloride 500 ML 333.33 MG IV (21:21)
[2024-09-06 21:25] LABS: Reflex Lactate? Lactic Acid Added
[2024-09-06] MEDS: Acetaminophen 325 MG TABLET 975 MG PO (21:39)
[2024-09-06 21:53] LABS: Appearance Urine Clear; Color Urine Dark Yellow; Glucose Urine UA Negative (Negative); Leukocyte Esterase Urine Trace (Negative); Nitrite Urine Positive (Negative); PH 5.5 (5.0-9.0); Specific Gravity - Urine >= 1.030 (1.005-1.025); UMIC TRIGGER UACC YES; Urine Blood Negative (Negative); Urine Ketones Trace mg/dL (Negative); Urine Protein 30 (1+) mg/dL (Neg-Trace)
[2024-09-06 22:05] LABS: Bacteria Urine None Seen (None Seen); Hyaline Casts Urine 0-2 /LPF (0-2); RBC Urine 0-2 /HPF (0-2); UACC Culture Trigger YES; WBC Urine 0-5 /HPF (0-5)
[2024-09-06 22:23] LABS: OBS1 POSITIVE (NEGATIVE)
[2024-09-06 22:24] LABS: OBS Int Ctl Valid YES
[2024-09-06 22:35] LABS: ~Lactic Acid-LAB USE ONLY 3.6 mmol/L (0.5-2.0)
--- NOTE | 2024-09-06 22:50 | PC.NURSE ---
Pt. ripped out IV while turning and repositioning self. Dressing applied.
[2024-09-06] MEDS: Erythromycin Base 0.5% Oph Oin 1 GM TUBE 1 CM EYE-LEFT (22:56)
--- NOTE | 2024-09-06 23:08 | PC.NURSE ---
Report given to BRIAN Lizama.
[2024-09-06 23:33] LABS: INTERNATIONAL NORM RATIO 1.3 (0.9-1.1); Prothrombin Time 15.1 SEC (10.9-12.4)
[2024-09-06] MEDS: Moxifloxacin HCl 0.5 % Oph Sol 3 ML DRPBTL 1 DROP EYE-RIGHT (23:37)
[2024-09-06] MEDS: Magnesium Sulfate/H2O 2 GM/50 ML PIGGYBACK IV (23:38)
[2024-09-07] VITALS (16 sets, daily range): BP systolic 113–134; BP diastolic 30–62; PULSE 74–105; RESP 20–30; TEMP 36.6–37.3; O2SAT 85–94; BMI 28.8
--- NOTE | 2024-09-07 | ECG_ITS ---
Test Reason : TACHY Blood Pressure : */* mmHG Vent. Rate : 121 BPM Atrial Rate : 121 BPM P-R Int : 114 ms QRS Dur : 122 ms QT Int : 360 ms P-R-T Axes : 65 74 49 degrees QTcB Int : 511 ms Sinus tachycardia Possible Left atrial enlargement Right bundle branch block Abnormal ECG Referred By: Norma Benítez Electronically Signed By: GINA SHERWOOD MD
[2024-09-07 00:04] LABS: Glucose, Whole Blood 91 mg/dL (60-115)
[2024-09-07 00:17] LABS: Reflex Lactate? 2 Y
[2024-09-07] MEDS: Albumin Human 25 % 100 ML 133.33 ML IV ×2 (01:19→02:29)
[2024-09-07 01:31] LABS: ~Lactic Acid-LAB USE ONLY 3.6 mmol/L (0.5-2.0)
[2024-09-07 01:48] LABS: Lactate Dehydrogenase 270 U/L (118-273)
[2024-09-07 01:50] LABS: Baso%MD 0.1 %; IG%MD 2.1 %; Lymph%MD 5.6 %; Mono%MD 4.7 %; Neut%MD 87.5 %; Retic HGB Equivalent 29.7 pg (30.0-35.0); Reticulocyte Percent 0.9 % (0.5-1.8)
[2024-09-07 01:53] LABS: WBC ABN SCTR FOR CBC 1
[2024-09-07 02:03] LABS: Fibrinogen > 700 MG/DL (259-690)
[2024-09-07 02:15] LABS: Haptoglobin 106 mg/dL (40-268)
--- NOTE | 2024-09-07 04:20 | P.HPHOSP_ITS ---
History of Present Illness Date of Service: 09/07/24 Attending physician on admission: Anitra Sy Chief Complaint: SEPSIS Patient is a 63-year-old male with past medical history depression, alcohol abuse with cessation 15 years ago, tobacco use 1/2 pack per day for 50 years was brought in by ambulance due to mild altered mental status, left eye swelling, tongue selling and severe right ear pain. Patient states his symptoms started Wednesday evening after getting out of work. Pt has been sleeping a lot more since Wednesday per family. 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 Patient developed a headache with left ear pain. 2 days prior pt's left eye also became swollen treatment was started. Patient's sister just arrived back from [place] yesterday and advocated for pt to be seen in ED and called 911. Patient currently denies any chest pain, shortness of breath at rest, abdominal pain, nausea, vomiting, lower leg pain, dysuria. Patient states the pain in his left ear has improved. Patient can not see out of left eye currently due to the swelling. Pt reports he has chronic R ear pain and will often instill hydrogen peroxide and clean ear out with Qtip. Pt last did this 2 weeks ago In the emergency department, lactic acid was 3.6, white blood count 10.2. Temp 101.0 on arrival. Pt did experience a one time episode of SVT in the 210s. Pt's converted to ST (110) and did not require adenosine. Pt received IVF and albumin. HR currently 95-110. ECG repeated, rate 98, SR, RBBB noted, PACs, QTC 503. Patient was started on sepsis protocol and received IV fluids at 30 milligrams/kilogram, vanco, Zosyn and initially ceftriaxone. Chest CT identified aspiration or endobronchial pneumonia. Initially patient was referred for admission here at [facility] but because we do not have ENT services, pt was deferred. The emergency room reached out to the ENT department at [facility] and after further review ENT indicated that patient would not need transfer as surgery is not indicated and pt does not have mastoiditis. The abscess can be treated with antibiotics [place] [facility] [place] Patient received a wick to the left ear and moxifloxacin eardrops. In addition patient received erythromycin ointment to the left eye which is currently fully closed with fair acuity. Pt denies pain in either eye. Patient is requiring an OxyMask for hypoxia, noting patient is a mouth breather. Urine positive for LE and Nitrites, neg for bacteria and low WBCs. Urine culture and Blood cultures pending. Patient's platelet count was 7000 and Hematology was consulted through the ED and they recommended at least 1 unit of platelets. No history to suggest HIT. Patient does have some mild bruising on the right lower leg but no petechiae found and the haptoglobin and LDH are within normal limits. Goal is to maintain platelets greater than 20,000. Per patient's sister there was a report that patient 2 days ago had a bowel movement that was dark and tarry. Patient denies any spontaneous bleeding issues. Guaiac was positive in the ED. Patient admits that he has not had any primary care in over 5 years when patient suffered from a mental breakdown after losing his job. Patient has been able to maintain his paroxetine and risperidone. Pt is not suicidal. Review of Systems 2 Review of Systems: Patient denies current chest pain, shortness of breath at rest, headache, nausea, vomiting, and abdominal pain and lower leg pain. Patient reports pain in the right ear has improved to 1 to 2/10 since starting antibiotics. Patient is alert and orientated x3 and sleepy. Yes all other systems are reviewed and are negative PMFSH Cognitive capacity: alert and orientated X3 Functional capacity: independent ambulation Pertinent family history: Father passed in his 70's Lung Cancer Mother alive age 95 CABG twice and AVR twice Social History (Updated 09/07/24 @ 06:27 by MELISSA Fenton) Alcohol intake: former Comment: pt stopped drinking 15 years ago, drank 6-8 beers per day Ebola Risk: Travel/Contact With Anyone From Affected Area/s: No Has Patient Experienced Ebola Symptoms: No Meds Allergies Allergy/AdvReac Type Severity Reaction Status Date / Time No Known Allergies Allergy Verified 09/06/24 19:27 [No Known Allergies*] Active Medications: Current Medications Sodium Chloride (Ns) 1,000 mls @ 125 mls/hr IVCONT .Q8H ZO Physical Exam 2 Vital Signs and Narrative: Vital Signs: Last Vital Signs Temp 99.1 F 09/07/24 03:22 Pulse 105 H 09/07/24 03:50 Resp 28 H 09/07/24 03:50 BP 117/56 L 09/07/24 03:50 Pulse Ox 93 09/07/24 03:50 O2 Del Method Oxymask 09/07/24 03:50 O2 Flow Rate 6 09/07/24 03:50 Oxygen Flow Rate 4 09/06/24 19:21 BMI result Body Mass Index 30.6 Alert and orientated X3, sleepy, able to answer questions and follow commands Neuro: CN II-X11 intact, visual acuity poor and left eye due to swelling EYES: R eye PERRLA, L eye swollen shut, conjunctiva red, clear drainage noted ENT: hearing intact L ear, R ear currently with wick in place, no issues with swallowing, uvula midline, lips moist, nares patent no epistaxis. Pt is a mouth breather. Cardiac: S1 S2 tachy 105, no murmur, no JVD, no edema in Lower ext Pulmonary: lungs B Rhonchi throughout Abdominal: BS active in all 4 quadrants, no guarding, tenderness, rebounding MSK: strength 5/5 upper and lower extremities : no CVA tenderness no bladder distension Extremities: no edema in lower extremities, PT and DP pulses palpable +2 Psych: mood stable, pt cooperative with care Skin: small bruises noted in RLE, no open wounds Results Labs 09/06/24 19:21 09/06/24 19:21 Labs: Laboratory Results - last 24 hr 09/06/24 09/06/24 09/06/24 19:21 21:07 21:45 MCV 87.7 MCH 31.9 MCHC 36.3 H RDW 13.0 Plt Count 7 L* D MPV Not Reportable Immature Gran % (Auto) Cancelled Neut % (Auto) Cancelled Lymph % (Auto) Cancelled [place] % (Auto) Cancelled Eos % (Auto) Cancelled Baso % (Auto) Cancelled Lymph # (Auto) Cancelled [place] # (Auto) Cancelled Eos # (Auto) Cancelled Baso # (Auto) Cancelled Abs Immat Gran (auto) Cancelled Absolute Neuts (auto) Cancelled Absolute Nucleated RBC 0.000 Nucleated RBC % (auto) 0.0 Neutrophils % (Manual) 75 H Band Neutrophils % 14 H Lymphocytes % (Manual) 5 L Monocytes % (Manual) 3 Metamyelocytes % 1 Myelocytes % 2 Abs Neuts (Manual) 9.1 H Lymphocytes # (Manual) 0.5 L Monocytes # (Manual) 0.3 Metamyelocytes # 0.1 Myelocytes # 0.2 Smudge Cells PRESENT Toxic Granulation PRESENT Toxic Vacuolation PRESENT Platelet Estimate DECREASED Plt Morphology Comment NORMAL RBC Morphology NOTED Microcytosis 3+ (>30) [place] Cells 3+ (>5) Schistocytes 3+ (>5) ESR 34 H Absolute Retic 0.040 Percent Retic 0.9 Immature Retic Fraction 10.0 Retic Hgb Equivalent 29.7 L PT INR Fibrinogen Anion Gap 17 Estim Creat Clear Calc 76.3 Estimated GFR 59 POC Glucose Random Glucose 117 H Haptoglobin 106 Lactic Acid 5.1 H* Lactic Acid F/U @ 2Hr Lactic Acid F/U @ 4Hr Calcium 8.7 Magnesium 1.6 Total Bilirubin 3.1 H Direct Bilirubin 2.2 H AST 38 H ALT 26 Alkaline Phosphatase 221 H Lactate Dehydrogenase 270 C-Reactive Protein 16.07 H Total Protein 5.6 L Albumin 2.9 L Urine Color Dark Yellow Urine Appearance Clear Urine pH 5.5 Ur Specific [place] >= 1.030 H Urine Protein 30 (1+) H Urine Glucose (UA) Negative Urine Ketones Trace Urine Blood Negative Urine Nitrite Positive H Ur Leukocyte Esterase Trace H Urine RBC 0-2 Urine WBC 0-5 Ur Squamous Epith Cells 6-10 Urine Bacteria None Seen Hyaline Casts 0-2 Stool Occult Blood Influenza Type A (PCR) NEGATIVE Influenza Type B (PCR) NEGATIVE RSV RNA Qual (PCR) NEGATIVE SARS-CoV-2 RNA (RT-PCR) NEGATIVE Blood Type A Negative Antibody Screen NEGATIVE 09/06/24 09/06/24 09/06/24 22:09 22:13 23:20 MCV MCH MCHC RDW Plt Count MPV Immature Gran % (Auto) Neut % (Auto) Lymph % (Auto) [place] % (Auto) Eos % (Auto) Baso % (Auto) Lymph # (Auto) [place] # (Auto) Eos # (Auto) Baso # (Auto) Abs Immat Gran (auto) Absolute Neuts (auto) Absolute Nucleated RBC Nucleated RBC % (auto) Neutrophils % (Manual) Band Neutrophils % Lymphocytes % (Manual) Monocytes % (Manual) Metamyelocytes % Myelocytes % Abs Neuts (Manual) Lymphocytes # (Manual) Monocytes # (Manual) Metamyelocytes # Myelocytes # Smudge Cells Toxic Granulation Toxic Vacuolation Platelet Estimate Plt Morphology Comment RBC Morphology Microcytosis [place] Cells Schistocytes ESR Absolute Retic Percent Retic Immature Retic Fraction Retic Hgb Equivalent PT 15.1 H INR 1.3 H Fibrinogen > 700 H Anion Gap Estim Creat Clear Calc Estimated GFR POC Glucose Random Glucose Haptoglobin Lactic Acid Lactic Acid F/U @ 2Hr 3.6 H* Lactic Acid F/U @ 4Hr Calcium Magnesium Total Bilirubin Direct Bilirubin AST ALT Alkaline Phosphatase Lactate Dehydrogenase C-Reactive Protein Total Protein Albumin Urine Color Urine Appearance Urine pH Ur Specific [place] Urine Protein Urine Glucose (UA) Urine Ketones Urine Blood Urine Nitrite Ur Leukocyte Esterase Urine RBC Urine WBC Ur Squamous Epith Cells Urine Bacteria Hyaline Casts Stool Occult Blood POSITIVE Influenza Type A (PCR) Influenza Type B (PCR) RSV RNA Qual (PCR) SARS-CoV-2 RNA (RT-PCR) Blood Type Antibody Screen 09/06/24 09/07/24 23:59 01:05 MCV MCH MCHC RDW Plt Count MPV Immature Gran % (Auto) Neut % (Auto) Lymph % (Auto) [place] % (Auto) Eos % (Auto) Baso % (Auto) Lymph # (Auto) [place] # (Auto) Eos # (Auto) Baso # (Auto) Abs Immat Gran (auto) Absolute Neuts (auto) Absolute Nucleated RBC Nucleated RBC % (auto) Neutrophils % (Manual) Band Neutrophils % Lymphocytes % (Manual) Monocytes % (Manual) Metamyelocytes % Myelocytes % Abs Neuts (Manual) Lymphocytes # (Manual) Monocytes # (Manual) Metamyelocytes # Myelocytes # Smudge Cells Toxic Granulation Toxic Vacuolation Platelet Estimate Plt Morphology Comment RBC Morphology Microcytosis [place] Cells Schistocytes ESR Absolute Retic Percent Retic Immature Retic Fraction Retic Hgb Equivalent PT INR Fibrinogen Anion Gap Estim Creat Clear Calc Estimated GFR POC Glucose 91 Random Glucose Haptoglobin Lactic Acid Lactic Acid F/U @ 2Hr Lactic Acid F/U @ 4Hr 3.6 H* Calcium Magnesium Total Bilirubin Direct Bilirubin AST ALT Alkaline Phosphatase Lactate Dehydrogenase C-Reactive Protein Total Protein Albumin Urine Color Urine Appearance Urine pH Ur Specific [place] Urine Protein Urine Glucose (UA) Urine Ketones Urine Blood Urine Nitrite Ur Leukocyte Esterase Urine RBC Urine WBC Ur Squamous Epith Cells Urine Bacteria Hyaline Casts Stool Occult Blood Influenza Type A (PCR) Influenza Type B (PCR) RSV RNA Qual (PCR) SARS-CoV-2 RNA (RT-PCR) Blood Type Antibody Screen ECG Attestation: I personally reviewed and interpreted this ECG as follows: (SR, HR 98, RBBB, Qtc 503) ECG interpretation date: 09/07/24 Prior ECG tracings: available for review Imaging Radiologist's Impressions: CHest CT IMPRESSION: 1. Ill-defined tree-in-bud nodularity along the posterior aspects of the dependent upper lobes. Aspiration or endobronchial pneumonia suspected. Attention on follow-up. 2. Additional findings as described. HEAD CT IMPRESSION: 1. No acute intracranial hemorrhage or territorial infarction. 2. Abnormal findings in the right mastoid air cells, middle and external ear. Favor otitis media, externa with soft tissue abscess, and mastoiditis. Cholesteatoma amongst other etiologies not excluded either. Clinical correlation with the ENT consult advised. ABD PELVIS CT Prostanegaly, Hepatomegaly, Splenomegaly Fat Containin UMB hernia Diffuse atheromatous plaque disease throughout the aorta and branch vessels, without aneurysmal dilatation. 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 Scattered colonic diverticulosis without diverticulitis or colitis. Bladder is decompressed with mural thickening, nonspecific. Osteopenia with diffuse multilevel spondylosis. Chronic appearing mild vertebral body height loss at L3 with vertebral body hemangioma. Sacralization of the L5. CXR IMPRESSION: 1. Bilateral infrahilar patchy opacities, correlation for pneumonia or aspiration advised. 2. Left basilar atelectasis. Assessment and Plan (1) Sepsis: Qualifiers: Sepsis type: sepsis due to unspecified organism Sepsis acute organ dysfunction status: unspecified Qualified Code(s): A41.9 - Sepsis, unspecified organism Status: Acute (2) Pneumonia: Qualifiers: Pneumonia type: aspiration pneumonia Aspiration pneumonia type: u nspecified Laterality: bilateral Lung location: lower lobe of lung Qualified Code(s): J69.0 - Pneumonitis due to inhalation of food and vomit Status: Acute (3) Metabolic encephalopathy: Status: Acute (4) Acute conjunctivitis, left eye: Qualifiers: Acute conjunctivitis type: bacterial Qualified Code(s): H10.32 - Unspecified acute conjunctivitis, left eye Status: Acute (5) Acute otitis media, right: Status: Acute (6) Thrombocytopenia: Status: Acute Plan Patient is a 63-year-old male with past medical history depression, alcohol abuse with cessation 15 years ago, tobacco use 1/2 pack per day for 50 years with no primary care the last 5 years diagnosed with sepsis secondary to PNA, R OM with abscess no mastoiditis present, L eye infection, possible UTI, Severe thrombocytopenia with splenomegaly, possible GIB with positive guiac and stable H/H. ED provider spoke with [facility] ENT and because patient did not require surgical intervention and did not have mastoiditis, he did not require transfer. Patient was accepted for admission to manage sepsis, acute hypoxic respiratory failure secondary to pneumonia,R ear abscess and severe thrombocytopenia. Sepsis/ CAP/ R OM with abscess/ L eye infection -patient received fluid resuscitation at the recommended rate of 30 mL per kg in the emergency department. Lactic acid 3.6, 3.6 and 3rd level is pending. Patient remains on IV fluids. -Tylenol given for fever, temp currently 98.9 degrees. -blood and urine cultures pending. Right ear culture also pending. -Patient currently has a wick to the right ear and is receiving moxifloxacin. Patient is receiving erythromycin to the left eye. Visual acuity appears to be intact. No eye pain reported. -Patient continues on vancomycin and Zosyn. Renal stable. -Oxygen via OxyMask as patient is a mouth breather and is fatigued. -Aspiration precautions -Consider ID consult if needed Acute hypoxic respiratory failure with metabolic encephalopathy -mentation is improving as fever has gone down -oxygen via oxymask, wean as tolerated -supportive care, IS, nebs, continuous pox SVT isolated incident in ED/ prlonged Qtc/ Pericardial effusion, epicardial fluid collection -no further episodes, one time in ED -telemetry, ECG notes RBBB, QTC 503 holding SSRI -MG 1.6, pt received 2 GMS in ED, level pending -TSH, FT4 pending -Echo ordered, consider cardiology consult Severe Thrombocytopenia 7K with minor brusing/Splenomegaly/ Positive Guiac ? 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 MED REC Pending DVT prophylaxis held due to low platelet count and positive guiac PPI: pantropazole 40 mg IV BID Pt requires inpatient hospitalization due to sepsis and need for IV antibiotics and expert consultation including Hematology and Gastroenterology. Patient likely requires 72 +hours for admission. Total time managing care of this patient today: 55 minutes. Quality Stroke Does the patient have a stroke diagnosis?: No Reason for No Anti-thrombotic by Day Two: Contraindicated (low platelet count ) VTE Prior VTE?: No VTE Risk Level:: Medical - moderate - high VTE Device Contraindication: N/A - Device Ordered VTE Drug Contraindication: N/A - Med Ordered
[2024-09-07] MEDS: 0.9 % Sodium Chloride 1,000 ML 125 ML IVCONT (04:22)
[2024-09-07 06:10] LABS: Hematocrit 29.5 % (42.0-52.0); Hemoglobin 10.7 g/dl (14.0-18.0); Mean Corpuscular HGB Conc 36.3 g/dl (31.0-36.0); Mean Corpuscular Volume 88.3 fL (80.0-98.0); Red Blood Count 3.34 X10*6/uL (4.60-5.80); Red Cell Distribution Width 13.2 % (11.0-16.0)
[2024-09-07 06:11] LABS: WBC ABN SCTR FOR CBC 1
[2024-09-07 06:13] LABS: Platelet Count 6 X10*3/uL (160-400)
[2024-09-07 06:28] LABS: Lactic Acid 2.1 mmol/L (0.5-2.0)
[2024-09-07 06:31] LABS: Alanine Aminotransferase 19 U/L (0-40); Albumin Level 2.7 g/dL (3.5-5.0); Alkaline Phosphatase 94 U/L (39-117); Anion Gap 14 (12-20); Aspartate Amino Transferase 39 U/L (5-37); Bilirubin Total 3.1 mg/dL (0.0-1.0); Blood Urea Nitrogen 47 mg/dL (9-16); Calcium 7.8 mg/dL (8.4-10.2); Carbon Dioxide 19 mmol/L (22-29); Chloride 111 mmol/L (96-108); Creatinine Clr Calc Pharmacy 92.8; Estimated Glomerular Filt Rate > 60; Glucose Random 113 mg/dL (60-115); Potassium 3.7 mmol/L (3.3-5.1); Sodium 140 mmol/L (135-145); Total Protein 4.7 g/dL (6.5-8.0)
[2024-09-07] MEDS: Pantoprazole Sodium 40 MG/10 ML VIAL IVPUSH (06:45)
[2024-09-07] MEDS: Piperacillin Sodium/Tazobactam 4.5 GM in 0.9 % Sodium Chloride 100 ML IV (06:45)
--- NOTE | 2024-09-07 07:09 | PHA.PROG ---
Admission Date/Time: September 07, 2024 04:18 Indication: RESPIRATORY Weight in k.2 kg Adjusted body weight in Kg: [place] body weight in Kg: Obesity Dosing Indication % IBW: Serum Creatinine - Last 168 Hours 09/06/24 09/07/24 19:21 05:58 Creatinine 1.24 1.02 Estimated CrCl and GFR - Last 168 Hours 09/06/24 09/07/24 19:21 05:58 Estim Creat Clear Calc 76.3 92.8 Estimated GFR 59 > 60 Vancomycin Loading Dose: 1500 MG Current Vancomycin Dosing Regimen: 1250 MG Q12H Vancomycin Monitoring using AUC goal of 400 - 600 range with trough as surrogate marker: [id number] TROUGH=19.5 Date and Time for next Vancomycin Level to be drawn: 09/08/24 @0700 Pharmacist Comments on Vancomycin Plan: STARTING DOSE IS AGGRESSIVE DUE TO INDICATION OF RESPIRATORY INFECTION, WILL ADJUST DOSE ACCORDINGLY AFTER TROUGH LEVEL COMES BACK Vancomycin dosing will take advantage of [employer] as a clinical decision support tool that uses Bayesian modeling to calculate individual patient's pharmacokinetic parameters and forecast the patient's drug concentration time course with the target goal AUC 24 range of 400 - 600 mg/L/hr.
[2024-09-07 07:29] LABS: Atypical Lymphs Percent Manual 1 % (0-6); Band Neutrophils Percent 23 % (3-5); Lymphocytes Percent Manual 5 % (20-40); Metamyelocytes Percent 3 %; Monocytes Percent Manual 4 % (2-11); Myelocytes Percent 1 %; Neutrophils Percent Manual 62 % (45-73); Promyelocytes Percent 1 %
[2024-09-07 07:30] LABS: Platelet Estimate DECREASED (NORMAL); Platelet Morphology Comment NORMAL; RBC Morphology NOTED
[2024-09-07 07:31] LABS: Burr Cells 2+ (3-5) /OIF; Dohle Bodies PRESENT; Smudge Cells PRESENT; Toxic Granulation PRESENT; Toxic Vacuolation PRESENT
[2024-09-07 07:32] LABS: Atypical Lymph Absolute Manual 0.1 x10*3/uL; Lymphocytes Absolute Manual 0.6 X10*3/uL (1.2-4.9); Metamyelocytes Absolute 0.4 X10*3/uL; Monocytes Absolute Manual 0.5 X10*3/uL (0.1-1.2); Myelocytes Absolute 0.1 X10*/uL; Promyelocytes Absolute 0.1 X10*3/uL; White Blood Count 12.9 X10*3/uL (4.8-10.8)
--- NOTE | 2024-09-07 07:49 | PHA.MEDREC ---
Pharmacy Consult ? Medication Reconciliation Pharmacy has completed the medication reconciliation. Patient is [facility], called [facility] for patients recent claims.
[2024-09-07 08:01] LABS: Reflex Lactate? Lactic Acid Added
--- NOTE | 2024-09-07 08:51 | CA_ITS ---
Transthoracic Echocardiogram Patient (Last, First, Middle): Mack Masterson C Gender: Male Date of : 1960 Age: 63 Procedure Date: 09/07/2024 Procedure Type: Transthoracic Echocardiogram [place] [facility] [place] Height: 182.88 cm Weight: 102.06 kg BSA: 2.24 m2 Heart Rate: 97 bpm BP: 123 / 58 mmHg Supervisor [employer]: SB Referring MD: Rafael Basilio MD Critical Systems Technician: Sarabjit Reyes MD Symptoms: svt Study Quality: Fair ECG Rhythm: Sinus Conclusions: - 1. Hyperdynamic LVEF greater than 70% with impaired relaxation filling pattern 2. At least moderately dilated left atrium 3. Calcified aortic valve changes noted with mean gradient of 32 mm Hg with a calculated valve area in mild stenosis range suggestive of overall probably increase flow through the aortic valve due to higher stroke volume 4. Calcific mitral valve changes noted with possible mild mitral stenosis 5. Mildly dilated ascending aorta 3.7 cm 6. No gross pericardial effusion Findings Procedure Information Contrast agent, definity, is being given per protocol without apparent complications. The quality of the study was technically difficult. The study quality is limited by lung artifact and an uncooperative patient. Left Ventricle Normal left ventricular cavity size. There is normal left ventricular wall thickness. The left ventricular systolic function is hyperdynamic. The visually estimated ejection fraction is >70%. Spectral Doppler is indicative of an impaired relaxation filling pattern. There is moderate septal asymmetric hypertrophy. Right Ventricle Normal right ventricular cavity size and systolic function. Atria The left atrium is moderately dilated. There is no evidence of interatrial shunt. The right atrium is mildly dilated. Aortic Valve There is moderate calcification of the aortic valve. There is moderate thickening of the aortic valve. There is no aortic valve regurgitation. this significantly increased gradient across the aortic valve with mean gradient of 32 mm Hg although valve area is calculated in the mild severity range most likely suggestive of high stroke volume. Mitral Valve There is moderate anterior and posterior mitral leaflet thickening. There is moderate mitral annular calcification. There is no mitral valve regurgitation. Mitral stenosis can not be entirely ruled out Pulmonic Valve The pulmonic valve was not well visualized. Tricuspid Valve The tricuspid valve was not well visualized. Tricuspid regurgitation envelope is inadequate for calculation of right ventricular systolic pressure. Normal right atrial pressure. Great Vessels The pulmonary artery was not well visualized. There is mild dilatation of the ascending aorta measuring 3.70 cm. Small plaque is seen in the sino tubular ridge. Venous The inferior vena cava is normal in size and collapses greater than 50% with inspiration. Pericardium/Pleural There is no evidence of pericardial effusion. Measurements 2D Linear Measurements IVSd: 1.51 0.6-0.9/0.6-1.0 cm LVIDd: 4.50 3.9-5.3/4.2-5.9 cm LVIDd Index: 2.01 2.4-3.2/2.2-3.1 cm/m2 LVIDs: 2.48 2.0-3.6 cm LVPWd: 1.01 0.7-1.1 cm LA Diam: 4.70 2.7-3.8/3.0-4.0 cm LAIDs Index: 2.10 1.5-2.3 cm/m2 LV Mass: 265.02 67-162/88-224 g LV Mass Index: 118.31 43-95/49-115 g/m2 LVOT Diam: 2.60 3.0+(-)1.3 cm 2D Systolic Function EF 4C: 81.00 >55% EF 2C: 63.90 >55% EF BiP: 73.60 >55% Mitral Valve MV VTI: 0.51 MV Pk [place]: 1.54 MV Mn [place]: 1.00 MV Pk Grad: 9.00 MV Mn Grad: 5.00 MV Pk E: 1.33 MV PK A: 1.40 MV Decel Time: 274.00 E/A: 1.00 E'Lateral: 8.38 E'Medial: 6.53 E/E' Med: 20.40 E/E' Lat: 15.90 PHT: 80.00 MVA PHT: 2.75 MVA Continuity: 2.93 Decel [place]: 4.87 Aortic Valve AoV Pk [place]: 3.92 AoV Mn [place]: 2.59 AoV VTI: 0.72 AoV Pk Grad: 62.00 Aov Mn Grad: 32.00 MO Cont.VTI: 1.94 LVOT LVOT Pk [place]: 1.30 LVOT Mn [place]: 0.89 LVOT VTI: 0.28 LVOT Pk Grad: 7.00 LVOT Mn Grad: 4.00 LVOT Diam: 2.60 LVOT Area: 5.31 Diastolic Function MV Pk E: 1.33 MV Pk A: 1.40 E/A: 1.00 E'Medial: 6.53 E/E' Med: 20.40 E' Laterial: 8.38 E/E' Lat: 15.90 Right Ventricle TAPSE (mm): 26.50 TVS' [place]: 12.70 Tricuspid Valve RA Press: 3.00 Great Vessels Aorta Sinus of Valsalva: 3.40 2.0-3.5 cm Ao Asc: 3.70 2.1-3.4 cm Pulmonary Veins Pulm Vein S/D 1.70 Pulmonary Valve PV Pk [place]: 0.93 Peak PV Grad: 3.00 Updated in Other Vendor System with Status of Final Sarabjit Reyes MD electronically signed on 09/07/2024 3:20:30 PM with status of Final
[2024-09-07 09:28] LABS: Baso%MD 0.5 %; IG%MD 2.2 %; Immature Retic Fraction 8.2 % (2.3-13.4); Lymph%MD 8.1 %; Mono%MD 7.2 %; Retic HGB Equivalent 28.5 pg (30.0-35.0); Reticulocyte Percent 0.7 % (0.5-1.8); Reticulocytes Absolute 0.023 X10*6/uL (0.026-0.095)
[2024-09-07 09:30] LABS: PLT ABN DIST 1
[2024-09-07 09:35] LABS: Lactate Dehydrogenase 229 U/L (118-273)
--- NOTE | 2024-09-07 09:35 | MHC.CM.PN ---
Pt lives alone, but spends a lot of time at his mother's home, taking care of her, she is 95 years old. He does not have any home health services or DME, he is still working fulltime. He does not have a PCP, brochure given. He will complete the HCP form here, naming his sister, Julia, and she will assist him in making a new PCP appt. CM will follow for DC needs.
[2024-09-07] MEDS: Erythromycin Base 0.5% Oph Oin 1 GM TUBE 1 CM EYE-LEFT ×2 (09:40→12:46)
[2024-09-07] MEDS: LORazepam 0.5 MG TABLET PO (09:40)
[2024-09-07 09:46] LABS: Estimated Average Glucose 111 mg/dL; Hemoglobin A1C 106.5209 umol/L; Hemoglobin A1c % 5.5 % (<6.0); Total Hemoglobin (HGBA1C) 2884.5116 umol/L
[2024-09-07 09:57] LABS: Adenovirus PCR Not Detected (Not Detect.); Bordetella parapertussis PCR Not Detected (Not Detect.); Bordetella pertussis PCR Not Detected (Not Detect.); Chlamydia pneumoniae PCR Not Detected (Not Detect.); Coronavirus 229E PCR Not Detected (Not Detect.); Coronavirus HKU1 PCR Not Detected (Not Detect.); Coronavirus NL63 PCR Not Detected (Not Detect.); Coronavirus OC43 PCR Not Detected (Not Detect.); Human metapneumovirus PCR Not Detected (Not Detect.); Influenza A PCR Not Detected (Not Detect.); Influenza B PCR Not Detected (Not Detect.); Mycoplasma pneumoniae PCR Not Detected (Not Detect.); Parainfluenza 1 PCR Not Detected (Not Detect.); Parainfluenza 2 PCR Not Detected (Not Detect.); Parainfluenza 3 PCR Not Detected (Not Detect.); Parainfluenza 4 PCR Not Detected (Not Detect.); RSV PCR Not Detected (Not Detect.); Rhino/Enterovirus PCR Not Detected (Not Detect.)
[2024-09-07 10:45] LABS: INTERNATIONAL NORM RATIO 1.3 (0.9-1.1); Prothrombin Time 15.1 SEC (10.9-12.4)
[2024-09-07 10:47] LABS: D Dimer High Sensitivity 1650 NG/ML
[2024-09-07 10:49] LABS: Fibrinogen > 700 MG/DL (259-690)
[2024-09-07] MEDS: gadobutroL 10 ML VIAL IVPUSH (11:12)
[2024-09-07] MEDS: Moxifloxacin HCl 0.5 % Oph Sol 3 ML DRPBTL 1 DROP EYE-RIGHT (11:19)
[2024-09-07] MEDS: cefEPime HCl/D5W 2 GM/50 ML PIGGYBACK IV (11:19)
[2024-09-07] MEDS: vancomycin HCL 1,250 MG in 0.9 % Sodium Chloride 250 ML 166.67 MG IV (11:20)
[2024-09-07 11:30] LABS: SARS-CoV-2 PCR Not Detected (Not Detect.)
[2024-09-07 11:31] LABS: Influenza A H1 PCR Not Detected (Not Detect.); Influenza A H1-2009 PCR Not Detected (Not Detect.); Influenza A H3 PCR Not Detected (Not Detect.)
[2024-09-07 12:32] LABS: ABG Base Excess -3.4 mmol/L; ABG HCO3 21 mmol/L (22-26); ABG pCO2 37 mmHg (32-45); ABG pH 7.36 (7.35-7.45); ABG pO2 68 mmHg (83-108)
--- NOTE | 2024-09-07 13:05 | MHC.SL.SWA ---
Speech Pathologist Impression: Risk of Aspiration Due to: History of Pneumonia Dysphasia Diet Status: Liquid Consistency and Strategies for Safe Swallow: Liquid Intake Recommendation: Thin Liquid Intake Strategies: Small Sips Solid Food Consistency: Dietary Recommendations: Chopped/Advanced (NDD3) Additional Modifications to Solid Foods: Patient presents as able to independently eat. Straws ok. Alternated liquids and solids. Oral Medication Intake: Whole with Liquid Please contact the pharmacy regarding appropriate crushable or liquid drug formulations that are available whenever modified delivery is recommended. Compensatory Strategies and Precautions to be Taken for Safe Swallow: Sitting Upright (90 deg) Liquids from Cup Liquids from Straw Small Bites and Sips Alternate Liquids/Solids Supervision While Eating and Drinking for Safe Swallow: None Needed Foods to Avoid: Tough, difficult to chew solids. Swallowing Recommended Treatments: Compens. Strategy Educat. Recommendation for Speech: Inpatient Speech Therapy Comment: Patient presents with mild oral phase dysphagia secondary to being edentulous. All other aspects of swallow presented as WFL. Recommend UPGRADE diet from NPO to CHOPPED/ADVANCED (NDD3) with THIN liquids, pills whole with liquid. Patient demonstrated ability to independently eat, due to visual impairment (closed/swollen R eye), may need some initial assistance with tray (e.g. open all items). Recommend alternate liquids and solids. LOCK UP WORKER will f/u 1-2X to assure toleration of diet. MD/RD notified of recommendation by secure text, RN in person. Frequency/Duration: Date Range for Service Req: Timeline to reassess: Public Works Laborer Clinican/Clinical Fellow: No Supervisory Statement: I have reviewed and agree with the student/clinical fellow's documentation: N/A Speech Language Pathologist: Kira Multani M.A., [facility]-LOCK UP WORKER
--- NOTE | 2024-09-07 13:26 | PM.DS ---
DS: Providers Provider Date of Service: 09/07/24 Date of admission: 09/07/24 04:18 Date of discharge: 09/07/24 Primary care physician: Unknown Physician Consults: 09/07/24 04:22 Consult to Hematology / Oncology Routine Consulting Provider: [facility] Oncology/Hematology Reason for consultation: Platelet count 7 09/07/24 05:34 Consult to Gastroenterology Routine Consulting Provider: Antwon Maza Reason for consultation: black tarry stool, low plts but H/H stable Has provider been notified: No 09/07/24 08:49 Consult to Infectious Diseases Routine Consulting Provider: [facility] Reason for consultation: mastoiditis 09/07/24 08:51 Consult to Cardiology Routine Consulting Provider: [facility] Cardiovascular Specialists Reason for consultation: svt 09/07/24 09:05 Consult to Neurology Routine Consulting Provider: [facility] Reason for consultation: cranial nerve palsy- ?cavernous thromb DS: Diagnosis Discharge Diagnosis (1) Sepsis: Status: Acute (2) Pneumonia: Status: Acute (3) Thrombocytopenia: Status: Acute (4) Acute respiratory failure with hypoxia: Status: Acute (5) Pneumonia: Status: Acute (6) Cavernous sinus thrombosis: Status: Acute (7) Mastoiditis: Status: Acute (8) Supraventricular tachycardia: Status: Acute (9) Otitis externa: Status: Acute DS: Summary Hospital Course Hospital Course: Mr Masterson is a 63yo M with PMHx of depression, tobacco abuse [1/2 ppd x 50yr], and 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 He developed headache and severe right ear pain five days ago and was seen at an urgent care center, where he was prescribed antibiotic drops for an external ear infection. He continues to have ear pain and over the last 3 days, has been extremely tired and weak, with poor appetite. On the morning prior to admission, he developed left eye swelling. His sister just arrived from out of state and called 911. In the ED, his left eye was noted to be completely swollen shut. He was hypoxic, requiring 4L of O2 via NC. He was febrile [101F], tachycardic [118], and tachypneic [30]. WBC count 10.2k but with 14% bands. Platelet count only 7. Lactate 3.6. He had a brief episode of SVT [rate 210s] but converted spontaneously to sinus tachycardia with rate of 110. Chest CT showed right-sided tree-in-bud opacities concerning for aspiration or endobronchial pneumonia. CT of the head showed otitis media, otitis externa with soft tissue abscess, and mastoiditis. ENT consultation was recommended. The ED reached out to ENT at [facility], who declined transfer as the patient did not need surgical intervention in their opinion. Blood cultures and right ear culture were sent. He was given 30 cc/kg of normal saline IV plus vancomycin and piperacillin-tazobactam. He was admitted to the telemetry unit. His platelet count this morning is 6, and I have ordered another 2 units of pheresis platelets. His oxygen requirement has increased to 8L via Oxymask, and I have ordered high-flow nasal cannula. I noted his left eye to be proptotic with complete CN III and palsies. I broadened his anti-infective coverage to vancomycin + meropenem + caspofungin. I obtained stat MRV/MRI of the brain which showed left extra-ocular muscle enlargement and edema with left superior ophthalmic vein enlargement and possible thrombosis, highly suggestive of left carvenous sinus thrombosis. The right mastoid had a tympanic space effusion and cerumen impaction in the external auditory canal. The right temporalis muscle had extensive edema concerning for direct extension of mastoiditis and right cavernous sinus thrombosis. The right sphenoparietal sinus appeared thrombosed. At that point, I reached out to [facility] and [facility] for transfer, as he needs consultation by specialists not available in our facility [ophthalmology and otolaryngology]. He was accepted to the [facility] MICU by perforator typist Dr Danny Barr. Time Attestation Discharge Coordination Time (in mins): 125 Quality: Safe Use of Opioids Does Pt have an Active Cancer Diagnosis on the Problem List?: No Quality: Stroke Does the patient have a stroke diagnosis?: No Physical Exam Vital Signs: Vital Signs: Last Vital Signs Temp 98 F 09/07/24 13:21 Pulse 75 09/07/24 13:21 Resp 20 09/07/24 13:21 BP 134/62 09/07/24 13:21 Pulse Ox 94 09/07/24 11:55 O2 Del Method Oxymask 09/07/24 11:55 O2 Flow Rate 9 09/07/24 11:55 Oxygen Flow Rate 4 09/06/24 19:21 BMI result Body Mass Index 28.8 Gen: ill-appearing HEENT: L eye proptotic with extensive upper and lower lid edema, mild R mastoid tenderness, bilateral ears with complete cerumen impaction Neck: supple Lungs: diminished, inspiratory crackles on R side Heart: regular rate and rhythm, no murmurs Abd: soft, non-tender, non-distended Ext: no edema Skin: warm/well-perfused Neuro: alert and oriented x3, left cranial nerve 3 and 6 palsies Psych: appropriate affect DS: Data Data Completed and Pending Completed studies during hospitalization [Text1]: Laboratory Results WBC 12.9 X10*3/uL (4.8-10.8) H 09/07/24 05:58 RBC 3.34 X10*6/uL (4.60-5.80) L D 09/07/24 05:58 Hgb 10.7 g/dl (14.0-18.0) L D 09/07/24 05:58 Hct 29.5 % (42.0-52.0) L D 09/07/24 05:58 MCV 88.3 fL (80.0-98.0) 09/07/24 05:58 MCH 32.0 pg (27.0-33.0) 09/07/24 05:58 MCHC 36.3 g/dl (31.0-36.0) H 09/07/24 05:58 RDW 13.2 % (11.0-16.0) 09/07/24 05:58 Plt Count 6 X10*3/uL (160-400) L* 09/07/24 05:58 MPV Not Reportable 09/07/24 05:58 Immature Gran % (Auto) Cancelled 09/07/24 05:58 Neut % (Auto) Cancelled 09/07/24 05:58 Lymph % (Auto) Cancelled 09/07/24 05:58 Divide % (Auto) Cancelled 09/07/24 05:58 Eos % (Auto) Cancelled 09/07/24 05:58 Baso % (Auto) Cancelled 09/07/24 05:58 Lymph # (Auto) Cancelled 09/07/24 05:58 Divide # (Auto) Cancelled 09/07/24 05:58 Eos # (Auto) Cancelled 09/07/24 05:58 Baso # (Auto) Cancelled 09/07/24 05:58 Abs Immat Gran (auto) Cancelled 09/07/24 05:58 Absolute Neuts (auto) Cancelled 09/07/24 05:58 Absolute Nucleated RBC 0.000 X10*3/uL (0.0-0.012) 09/07/24 05:58 Nucleated RBC % (auto) 0.0 /100WBC (0.0-0.2) 09/07/24 05:58 Neutrophils % (Manual) 62 % (45-73) 09/07/24 05:58 Band Neutrophils % 23 % (3-5) H 09/07/24 05:58 Lymphocytes % (Manual) 5 % (20-40) L 09/07/24 05:58 Atypical Lymphs % (Man) 1 % (0-6) 09/07/24 05:58 Monocytes % (Manual) 4 % (2-11) 09/07/24 05:58 Metamyelocytes % 3 % 09/07/24 05:58 Myelocytes % 1 % 09/07/24 05:58 Promyelocytes % 1 % 09/07/24 05:58 Abs Neuts (Manual) 11.0 X10*3/uL (2.0-8.3) H 09/07/24 05:58 Lymphocytes # (Manual) 0.6 X10*3/uL (1.2-4.9) L 09/07/24 05:58 Atyp Lymphs # (Manual) 0.1 x10*3/uL 09/07/24 05:58 Monocytes # (Manual) 0.5 X10*3/uL (0.1-1.2) 09/07/24 05:58 Metamyelocytes # 0.4 X10*3/uL 09/07/24 05:58 Myelocytes # 0.1 X10*/uL 09/07/24 05:58 Promyelocytes # 0.1 X10*3/uL 09/07/24 05:58 Smudge Cells PRESENT 09/07/24 05:58 Toxic Granulation PRESENT 09/07/24 05:58 Toxic Vacuolation PRESENT 09/07/24 05:58 Dohle Bodies PRESENT 09/07/24 05:58 Platelet Estimate DECREASED (NORMAL) 09/07/24 05:58 Plt Morphology Comment NORMAL 09/07/24 05:58 RBC Morphology NOTED 09/07/24 05:58 Microcytosis 3+ (>30) /OIF 09/06/24 19:21 [place] Cells 2+ (3-5) /OIF 09/07/24 05:58 Schistocytes 3+ (>5) /OIF 09/06/24 19:21 Smear Path Review SEE NOTE 09/06/24 19:21 ESR 34 MM/HR (0-15) H 09/06/24 19:21 Absolute Retic 0.023 X10*6/uL (0.026-0.095) L 09/07/24 05:58 Percent Retic 0.7 % (0.5-1.8) 09/07/24 05:58 Immature Retic Fraction 8.2 % (2.3-13.4) 09/07/24 05:58 Retic Hgb Equivalent 28.5 pg (30.0-35.0) L 09/07/24 05:58 PT 15.1 SEC (10.9-12.4) H 09/07/24 09:25 INR 1.3 (0.9-1.1) H 09/07/24 09:25 Fibrinogen > 700 MG/DL (259-690) H 09/07/24 09:25 D-Dimer High Sensitivty 1650 NG/ML 09/07/24 09:25 O2 Saturation 93.0 % 09/07/24 12:27 ABG pH at Pt Temp 7.36 (7.35-7.45) 09/07/24 12:27 ABG pCO2 at Pt Temp 37 mmHg (32-45) 09/07/24 12:27 ABG pO2 at Pt Temp 68 mmHg (83-108) L 09/07/24 12:27 ABG HCO3 21 mmol/L (22-26) L 09/07/24 12:27 ABG Base Excess (Actual) -3.4 mmol/L 09/07/24 12:27 Sodium 140 mmol/L (135-145) 09/07/24 05:58 Potassium 3.7 mmol/L (3.3-5.1) 09/07/24 05:58 Chloride 111 mmol/L (96-108) H 09/07/24 05:58 Carbon Dioxide 19 mmol/L (22-29) L 09/07/24 05:58 Anion Gap 14 (12-20) 09/07/24 05:58 BUN 47 mg/dL (9-16) H 09/07/24 05:58 Creatinine 1.02 mg/dL (0.5-1.4) 09/07/24 05:58 Estim Creat Clear Calc 92.8 09/07/24 05:58 Estimated GFR > 60 09/07/24 05:58 POC Glucose 91 mg/dL (60-115) 09/06/24 23:59 Random Glucose 113 mg/dL (60-115) 09/07/24 05:58 Estimat Average Glucose 111 mg/dL 09/07/24 05:58 Hemoglobin A1c % 5.5 % (<6.0) 09/07/24 05:58 Haptoglobin 106 mg/dL (40-268) 09/06/24 19:21 Lactic Acid 2.1 mmol/L (0.5-2.0) H* 09/07/24 05:58 Lactic Acid F/U @ 2Hr 2.0 mmol/L (0.5-2.0) 09/07/24 08:56 Lactic Acid F/U @ 4Hr 3.6 mmol/L (0.5-2.0) H* 09/07/24 01:05 Calcium 7.8 mg/dL (8.4-10.2) L D 09/07/24 05:58 Magnesium 1.6 mg/dL (1.6-2.6) 09/06/24 19:21 Total Bilirubin 3.1 mg/dL (0.0-1.0) H 09/07/24 05:58 Direct Bilirubin 2.2 mg/dL (0.0-0.5) H 09/06/24 19:21 AST 39 U/L (5-37) H 09/07/24 05:58 ALT 19 U/L (0-40) 09/07/24 05:58 Alkaline Phosphatase 94 U/L (39-117) 09/07/24 05:58 Lactate Dehydrogenase 229 U/L (118-273) 09/07/24 05:58 C-Reactive Protein 16.07 mg/dL (< or = 0.50) H 09/06/24 19:21 Total Protein 4.7 g/dL (6.5-8.0) L 09/07/24 05:58 Albumin 2.7 g/dL (3.5-5.0) L 09/07/24 05:58 Urine Color Dark Yellow 09/06/24 21:45 Urine Appearance Clear 09/06/24 21:45 Urine pH 5.5 (5.0-9.0) 09/06/24 21:45 Ur Specific [place] >= 1.030 (1.005-1.025) H 09/06/24 21:45 Urine Protein 30 (1+) mg/dL (Neg-Trace) H 09/06/24 21:45 Urine Glucose (UA) Negative mg/dL (Negative) 09/06/24 21:45 Urine Ketones Trace mg/dL (Negative) 09/06/24 21:45 Urine Blood Negative (Negative) 09/06/24 21:45 Urine Nitrite Positive (Negative) H 09/06/24 21:45 Ur Leukocyte Esterase Trace (Negative) H 09/06/24 21:45 Urine RBC 0-2 /HPF (0-2) 09/06/24 21:45 Urine WBC 0-5 /HPF (0-5) 09/06/24 21:45 Ur Squamous Epith Cells 6-10 /HPF (0-2) 09/06/24 21:45 Urine Bacteria None Seen (None Seen) 09/06/24 21:45 Hyaline Casts 0-2 /LPF (0-2) 09/06/24 21:45 Stool Occult Blood POSITIVE (NEGATIVE) 09/06/24 22:13 Respiratory Panel Naranjo See Note 09/06/24 21:07 Adenovirus (Rapid PCR) Not Detected (Not Detect.) 09/06/24 21:07 B.pert (TEM-PCR) Not Detected (Not Detect.) 09/06/24 21:07 B.parapertussis DNA PCR Not Detected (Not Detect.) 09/06/24 21:07 C. pneumoniae DNA (PCR) Not Detected (Not Detect.) 09/06/24 21:07 Coronavirus OC43 (PCR) Not Detected (Not Detect.) 09/06/24 21:07 Coronavirus HKU1 (PCR) Not Detected (Not Detect.) 04/16/25 21:07 Coronavirus 229E (PCR) Not Detected (Not Detect.) 09/06/24 21:07 Coronavirus NL63 (PCR) Not Detected (Not Detect.) 09/06/24 21:07 Human Metapneumovir PCR Not Detected (Not Detect.) 09/06/24 21:07 Influenza A (RT-PCR) Not Detected (Not Detect.) 09/06/24 21: Influenza A (H1) PCR Not Detected (Not Detect.) 09/06/24 21:07 Influ A (H1/09) PCR Not Detected (Not Detect.) 09/06/24 21:07 Influenza A (H3) PCR Not Detected (Not Detect.) 09/06/24 21:07 Influenza Type A (PCR) NEGATIVE (Negative) 09/06/24 19:21 Influenza B (RT-PCR) Not Detected (Not Detect.) 09/06/24 21:07 Influenza Type B (PCR) NEGATIVE (Negative) 09/06/24 19:21 M. pneumoniae (PCR) Not Detected (Not Detect.) 09/06/24 21:07 Parainfluenza 1 (PCR) Not Detected (Not Detect.) 09/06/24 21:07 Parainfluenza 2 (PCR) Not Detected (Not Detect.) 09/06/24 21:07 Parainfluenza 3 (PCR) Not Detected (Not Detect.) 09/06/24 21:07 Parainfluenza 4 (PCR) Not Detected (Not Detect.) 09/06/24 21:07 RSV (PCR) Not Detected (Not Detect.) 09/06/24 21:07 RSV RNA Qual (PCR) NEGATIVE (Negative) 09/06/24 19:21 Entero/Rhino (PCR) Not Detected (Not Detect.) 09/06/24 21:07 SARS-CoV-2 RNA (RT-PCR) Not Detected (Not Detect.) 09/06/24 21:07 Blood Type A Negative 09/06/24 21:07 Antibody Screen NEGATIVE 09/06/24 21:07 Pathology smear review 09/06/24 Left-shifted granulocytes with toxic changes are present (cytoplasmic vacuoles and Dohle bodies). Normochromic normocytic anemia. Platelets are markedly decreased in number; a rare large form is identified. Definitive parasites are not seen. Impressions Head/Brain Mag Res Venography 09/07/24 08:48 IMPRESSION: 1. Normal flow related enhancement in the major cortical and dural venous sinuses. 2. No filling defects are identified. 3. Normal flow related enhancement within the superior ophthalmic veins bilaterally although the left superior ophthalmic vein is slightly enlarged in comparison with the right, a finding which can be associated with cavernous sinus thrombosis. Please refer to the dedicated postcontrast MRI performed concurrently. Electronically signed by: Abisai Austin MD 09/07/2024 11:43 AM EDT Brain MRI 09/07/24 09:19 IMPRESSION: Moderately motion degraded examination. 1. No evidence of intracranial hemorrhage, acute infarction, mass effect, or edema. 2. Abnormalities of the left orbit including mild enlargement of the extraocular muscles, mild edema throughout the intra and extraconal fat, loss of the normal flow void of the superior ophthalmic vein, mild enlargement of the left superior ophthalmic vein, minimal left lobe proptosis, and left preseptal soft tissue edema. There may be thrombosis of the left superior ophthalmic vein. These findings all highly suggest LEFT cavernous sinus thrombosis although signal abnormalities in the actual left cavernous sinuses are not well seen. This could be due to motion. 3. Right mastoid tympanic space effusion and cerumen impaction in the right EAC. 4. There is edema and swelling throughout the right temporalis muscle, and involving the right greater than left muscles of mastication. This is of uncertain etiology, although direct extension of right mastoiditis is a consideration, as is RIGHT cavernous sinus thrombosis as well. 5. High signal within the right sphenoparietal sinus is also present suggesting thrombosis. 6. There is soft tissue edema and thickening of the external right ear soft tissues, suggesting otitis externa as well. Above findings communicated to via secure text at 12:05 PM, 07/10/2024, who indicated understanding of the findings. Electronically signed by: Abisai Austin MD 09/07/2024 12:09 PM EDT Chest X-Ray 09/07/24 12:40 IMPRESSION: Patchy increased density in the right mid to upper lung zone, suggestive of pneumonia. Follow-up is recommended. Electronically signed by: Femi Moore MD 09/07/2024 12:[address] chest with contrast 09/07/24 1. Ill-defined tree-in-bud nodularity along the posterior aspects of the dependent upper lobes. Aspiration or endobronchial pneumonia suspected. Attention on follow-up. 2. Additional findings as described. CT head with contrast 09/06/24 1. No acute intracranial hemorrhage or territorial infarction. 2. Abnormal findings in the right mastoid air cells, middle and external ear. Favor otitis media, externa with soft tissue abscess, and mastoiditis. Cholesteatoma amongst other etiologies not excluded either. Clinical correlation with the ENT consult advised. CT A/P with contrast 09/06/24 No acute findings. Additional findings described, please see above. Discharge Plan Discharge Anticipated Discharge Date/Time: 09/07/24 13:09 [facility] Discharge Diagnosis: septic cavernous sinus thrombosis mastoiditis severe thrombocytopenia Referrals: Physician,Unknown J [Primary Care Provider] - 1 Week Discharge Medications: New ipratropium-albuterol 0.5 mg-3 mg(2.5 mg base)/3 mL Solution For Nebulization 3 ml inhalation Q4H PRN (Reason: Shortness Of Breath/Wheezing) Qty: 1 0RF erythromycin 5 mg/gram (0.5 %) Ointment 1 cm ophthalmic-Left QID Qty: 1 0RF meropenem 1 gram Recon Soln 2 g IVPUSH Q8H Qty: 1 0RF caspofungin [Cancidas] 50 mg Recon Soln 50 mg IV Q24H Qty: 1 0RF Vancomycin Consult Rx Dosing [Consult Rx Vancomycin Dosing] 1 ea miscellaneous DAILY Qty: 1 0RF Rx Instructions: Per pharmacokinetic consult Continued fluoxetine 40 mg capsule 40 mg PO DAILY ofloxacin 0.3 % drops 10 drp otic (ear) right DAILY Rx Instructions: X 7 DAYS Murine Ear 6.5 % drops 5 drp otic (ears) BID MDD wax removal risperidone 0.5 mg tablet 0.5 mg PO BID Discharge Orders: Discharge Order (Routine); Ordered 09/07/24 Ordered By: Rafael Basilio Diet: Chopped [NDD3], thin liqu Activity on Discharge: As tolerated Stand Alone Forms: Patient Portal Discharge page Print Language: Finnish Care Plan Goals: resolution of infection and thrombosis Health Concerns: septic cavernous sinus thrombosis mastoiditis severe thrombocytopenia Plan of Treatment: transfer to [facility] MICU continue vancomycin, meropenem, and caspofungin ENT and Ophthalmology consultations Assessment: See Discharge Summary.
[2024-09-07 14:30] LABS: Free T4 (Free Thyroxine) 0.98 ng/dL (0.71-1.85); Thyroid Stimulating Hormone 0.45 uIU/mL (0.32-4.0)
--- NOTE | 2024-09-07 14:36 | CONS_ITS ---
DATE OF SERVICE: 09/07/2024 REFERRING PHYSICIAN: Norma Benítez NP REASON FOR CONSULTATION: History of black stool. HISTORY OF PRESENT ILLNESS: The patient is a pleasant 63-year-old man, who was admitted to the hospital after presenting to the emergency room yesterday with complaints of left eye swelling, tongue swelling, and right ear pain as well as altered mental status. He was admitted to the hospital for treatment of these issues. There was report of black stools approximately 3-4 days prior to admission. This subsequently resolved. In the emergency department, he was examined and was reported to have brown stool, which was occult blood positive during his evaluation. Laboratory studies documented a platelet count of 7000. He has been seen in consultation by Hematology and has been transfused platelets. Followup platelet count this morning was 6000. Laboratory studies have shown a hematocrit on admission of 35.7, down slightly from 42 in 2021. This dropped to 29.5 without any bleeding after he receives sepsis treatment with between 3 and 4 L of IV fluid and antibiotics. The patient denies any stomach problems. He has no complaints of abdominal pain. He does not have chronic reflux. He has never had ulcers and has not undergone endoscopy. PAST MEDICAL HISTORY: 1. Alcohol abuse, currently in remission. 2. Depression. 3. He denies other medical or surgical illnesses. CURRENT MEDICATIONS: His current medication list is reviewed in the chart. ALLERGIES: THERE ARE NONE REPORTED. FAMILY HISTORY: This is reviewed with the patient and is noncontributory. SOCIAL HISTORY: He does smoke. Alcohol use is negative. He has been abstinent for 10 years. REVIEW OF SYSTEMS: SKIN: No pruritus. HEENT: Negative. CARDIOPULMONARY: He denies shortness of breath or chest pain. GASTROINTESTINAL: As above. GENITOURINARY: Negative. NEUROPSYCHIATRIC: Negative. PHYSICAL EXAMINATION: GENERAL: Shows a pleasant male, lying in bed. VITAL SIGNS: Reviewed in electronic medical record. SKIN: Anicteric. HEENT: Shows a markedly swollen shut right eye. Left ear is not examined. NECK: Without lymphadenopathy or thyromegaly. LUNGS: Clear. HEART: Shows a regular rate and rhythm. S1, S2. No murmur. ABDOMEN: Soft without focal masses or tenderness. Bowel sounds are present. No organomegaly is noted. EXTREMITIES: Without edema. LABORATORY DATA AND IMAGING STUDIES: Reviewed. IMPRESSION: Black stool. He likely had an episode of self-limited GI bleeding related to his thrombocytopenia. This appears to have stopped. He does have guaiac-positive stools, but his hematocrit has remained relatively stable, allowing for hydration. At this time, I would recommend empiric treatment with a proton pump inhibitor as you are doing and monitoring his hematocrit. I do not recommend endoscopy based on his persistent and continued thrombocytopenia and lack of bleeding. The thrombocytopenia should be corrected as soon as possible to prevent further GI bleeding. Thanks for asking me to see him. I will follow him in the hospital with you. MD JENNIFER Gómez/OSCAR / [phone]
--- NOTE | 2024-09-08 15:44 | PC.NURSE ---
Patient on 09/07/24 at 15:09 discharged via EMS to be transferred to another hospital. The unit of platelet that was transfusing was brought with patient in ambulance. Unable to complete TAR due to patient being discharged.
== END 2024-09-07 15:09 | disposition short-term general hospital (02) | DRG 720 ==
LOC: HO.ED 09-07 02:37 → HO.EDOVER 09-07 04:28 → HO.IMC 09-07 06:48
PROVIDERS: Physician Assistant Medical; Admitting Provider Nurse Practitioner Family; Emergency Provider Emergency Medicine; Visit Provider Family Medicine
DX: A41.9 Sepsis, unspecified organism (principal); J96.01 Acute respiratory failure with hypoxia; J69.0 Pneumonitis due to inhalation of food and vomit; G93.41 Metabolic encephalopathy; I47.10 Supraventricular tachycardia, unspecified; H70.91 Unspecified mastoiditis, right ear; D69.6 Thrombocytopenia, unspecified; F32.A Depression, unspecified; N62 Hypertrophy of breast; I77.4 Celiac artery compression syndrome; H60.91 Unspecified otitis externa, right ear; I67.6 Nonpyogenic thrombosis of intracranial venous system; R19.5 Other fecal abnormalities; F10.11 Alcohol abuse, in remission; H66.41 Suppurative otitis media, unspecified, right ear; H10.32 Unspecified acute conjunctivitis, left eye; F17.210 Nicotine dependence, cigarettes, uncomplicated; Z71.6 Tobacco abuse counseling; Z20.822 Contact with and (suspected) exposure to COVID-19; Z79.899 Other long term (current) drug therapy
CPT/HCPCS: 0241U; 36415; 36600; 70460; 70546; 70553; 71045; 71260; 74177; 80053; 81001; 82248; 82272; 82803; 82947; 83010; 83036; 83605; 83615; 83735; 84145; 84439; 84443; 85007; 85027; 85045; 85379; 85384; 85610; 85652; 86140; 86850; 86900; 86901; 87040; 87070; 87086; 87205; 87633; 92610; 93005; 93306; 99285; A9585; J0692; J0696; J1885; J2405; J2470; J2543; J3371; J3475; P9047; P9073; Q9957; Q9967

== ENCOUNTER → 2024-09-06 19:12 | Outpatient (BNV) | payer OTHER, SELFPAY | PROVIDERS: Visit Provider Radiology Diagnostic Radiology | DX: R10.9 Unspecified abdominal pain (principal); D69.6 Thrombocytopenia, unspecified; J98.09 Other diseases of bronchus, not elsewhere classified; A41.9 Sepsis, unspecified organism | CPT/HCPCS: 71045; 74177 ==

== ENCOUNTER → 2024-09-06 | Outpatient (BNV) | payer OTHER, SELFPAY | PROVIDERS: Admitting Provider Nurse Practitioner Family; Emergency Provider Emergency Medicine; Visit Provider Internal Medicine Cardiovascular Disease | DX: I49.1 Atrial premature depolarization (principal); I45.10 Unspecified right bundle-branch block | CPT/HCPCS: 93010 ==

== ENCOUNTER 2024-09-07 04:18 | Outpatient (BNV) | payer OTHER, SELFPAY | END 2024-09-07 08:48 | PROVIDERS: Admitting Provider Nurse Practitioner Family; Emergency Provider Emergency Medicine; Visit Provider Radiology Diagnostic Radiology | DX: I67.6 Nonpyogenic thrombosis of intracranial venous system (principal); H02.846 Edema of left eye, unspecified eyelid; H61.21 Impacted cerumen, right ear; H74.8X1 Other specified disorders of right middle ear and mastoid; H60.11 Cellulitis of right external ear; R91.8 Other nonspecific abnormal finding of lung field; A41.9 Sepsis, unspecified organism | CPT/HCPCS: 70546; 70553; 71045 ==

== ENCOUNTER → 2024-09-07 04:18 | Outpatient (BNV) | payer OTHER, SELFPAY | PROVIDERS: Admitting Provider Nurse Practitioner Family; Emergency Provider Emergency Medicine; Visit Provider Internal Medicine Cardiovascular Disease | DX: I42.2 Other hypertrophic cardiomyopathy (principal); I35.0 Nonrheumatic aortic (valve) stenosis; I51.7 Cardiomegaly; I45.10 Unspecified right bundle-branch block; R00.0 Tachycardia, unspecified | CPT/HCPCS: 93010; 93306 ==

== ENCOUNTER → 2024-09-07 04:18 | Outpatient (BNV) | payer OTHER, SELFPAY | PROVIDERS: Admitting Provider Nurse Practitioner Family; Emergency Provider Emergency Medicine; Visit Provider Nurse Practitioner Family | DX: A41.9 Sepsis, unspecified organism (principal); J69.0 Pneumonitis due to inhalation of food and vomit; J96.01 Acute respiratory failure with hypoxia; D69.6 Thrombocytopenia, unspecified; G08 Intracranial and intraspinal phlebitis and thrombophlebitis; I47.10 Supraventricular tachycardia, unspecified; J18.9 Pneumonia, unspecified organism | CPT/HCPCS: 99236; 99499 ==

== ENCOUNTER 2024-09-22 15:32 | Inpatient (IN) | payer OTHER, SELFPAY ==
--- OUTSIDE RECORDS SUMMARY | 2024-09-22 15:47 | XMS_ITS | Clinical Summary ---
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 Active risperiDONE (RisperDAL) 0.5 MG tablet Take 1 tablet (0.5 mg total) by mouth 2 (two) times a day. Active acetaminophen (TYLENOL) 325 MG tabletIndicatio ns:Acute cerebral venous sinus thrombosis 3 tablets (975 mg total) by NG Tube route 4 times daily (every 6 hours) as needed for fever, mild pain or headaches. 5 10/23/19 25 Active bisacodyl (DULCOLAX) 10 MG suppositoryIndi cations:Acute cerebral venous sinus thrombosis Insert 1 suppository (10 mg total) into the rectum daily as needed for constipation (if no bowel movement by day 2). 5 10/23/19 25 Active folic acid (FOLVITE) 1 MG tabletIndicatio ns:Acute cerebral venous sinus thrombosis Take 1 tablet (1 mg total) by mouth daily. 30 tablet 5 10/24/19 25 Active Heparin Sodium, Porcine, (heparin, porcine,) 1000 unit/mL injectionIndica tions:Acute cerebral venous sinus thrombosis Infuse 2.8 mL (2,800 Units total, 30 Units/kg x 92.9 kg (Previous weight)) into a venous catheter 4 times daily (every 6 hours) as needed (Anti-Xa level LESS than 0.1 units/mL). 5 Active heparin, porcine, 510[address]-5.45 UT/500ML-% Solution infusionIndicat ions:Acute cerebral venous sinus thrombosis Infuse 1,003.32 Units/hr (10.8 Units/kg/hr x 92.9 kg (Previous weight)) into a venous catheter continuous. 5 Active insulin lispro (HumaLOG/ADMELO G) 100 units/mL injectionIndica tions:Acute cerebral venous sinus thrombosis Inject 0.01-0.06 mL (1-6 Units total) under the skin 4 (four) times a day before meals and nightly. 5 Active lactulose (ENULOSE) 10 gm/15 mL solutionIndicat ions:Acute cerebral venous sinus thrombosis Take 30 mL (20 g total) by mouth daily as needed (constipation). 5 10/23/19 25 Active metoPROLOL TARTRATE (LOPRESSOR) 50 MG tabletIndicatio ns:Acute cerebral venous sinus thrombosis Take 1 tablet (50 mg total) by mouth every 12 (twelve) hours around the clock. 5 10/23/19 25 Active multivitamin with minerals (CEROVITE) Liquid liquidIndicatio ns:Acute cerebral venous sinus thrombosis Take 15 mL by mouth daily. 5 10/24/19 25 Active nicotine (NICODERM CQ) 21 MG/24HR patchIndication s:Acute cerebral venous sinus thrombosis Place 1 patch on the skin daily. 5 10/24/19 25 Active thiamine mononitrate (VITAMIN B-1) 100 MG tabletIndicatio ns:Acute cerebral venous sinus thrombosis Take 1 tablet (100 mg total) by mouth daily. 5 10/24/19 25 Active Active Problems Problem Noted Date Diagnosed Date Acute cerebral venous sinus thrombosis 5 Encounters Date Type Department Care Team Description 09/12/2024 Travel 09/08/2024 9:38 AM EDT Anesthesia Event [facility] 11 ICU [address] [place] [id number] Lloyd Dorsey MD Forkey, Blake, DO 09/07/2024 7:20 PM EDT Ancillary Procedure [facility] Rad[facility] [address] [place] [address] Provider, File Room 09/07/2024 7:15 PM EDT Ancillary Procedure [facility] Rad[facility] [address] [place] [address] Provider, File Room 09/07/2024 7:10 PM EDT Ancillary Procedure [facility] Radiology [address] [place] [address] Provider, File Room 09/07/2024 7:10 PM EDT Ancillary Procedure [facility] Radiology [address] [place] [address] Provider, File Room 09/07/2024 7:10 PM EDT Ancillary Procedure [facility] Radiology [address] [place] [address], [place] [address] Provider, File Room 09/07/2024 7:05 PM EDT Ancillary Procedure [facility]iology [address] [place] [address], [place] [address] Provider, File Room 09/07/2024 7:05 PM EDT Ancillary Procedure [facility] [address] [place] [address], [place] [address] Provider, File Room 09/07/2024 7:05 PM EDT Ancillary Procedure [facility] [address] [place] [address], [place] [address] Provider, File Room 09/07/2024 4:10 PM EDT - 09/22/2024 2:13 PM EDT Hospital Encounter [facility] [address] [place] [phone] Danny Barr MD Nascimento, Jeffrey C, Mo Casillas MD Pope, James Samuel, MD Rheiner, Jacqueline A, Kay Lemos, Acute cerebral venous sinus thrombosis (Primary Dx); Acute swimmer's ear of right side Discharge Disposition: Short Term-Acute Care Hospital from Last 3 Months Social History Tobacco Use Types Packs/Day Years Used Date Smoking Tobacco: Former Cigarettes Tobacco Cessation:Counseling Given: Not Answered Alcohol Use Standard Drinks/Week Comments Not Currently 0 (1 standard drink = 0.6 oz pure alcohol) ETOH ABUSE, QUIT 15 YEARS AGO [facility] Utilities Answer Date Recorded In the past 12 months has [employer], gas, oil, or water [email or web address] threatened to shut off services in your home? Patient unable to answer 09/09/2024 AUDIT-C Answer Date Recorded Q1: How often do you have a drink containing alcohol? Never 09/07/2024 Q2: How many drinks containi ng alcohol do you have on a typical day when you are drinking? Patient does not drink Q3: How often do you have si x or more drinks on one occasion? Never 09/07/2024 Overall Financial Resource Strain (CARDIA) Answe r Date Recorded How hard is it for you to pa y for the very basics like food, housing, medical care, and heating? Patient unable to answer 09/09/2024 Hunger Vital Sign Answer Date Recorded Within the past 12 months, y ou worried that your food would run out before you got the money to buy more. Patient unable to answer 09/09/2024 Within the past 12 months, t he food you bought just didn't last and you didn't have money to get more. Patient unable to answer 09/09/2024 PRAPARE - Transportation Answer Date Re corded In the past 12 months, has l ack of transportation kept you from medical appointments or from getting medications? Patient unable to answer 09/09/2024 In the past 12 months, has l ack of transportation kept you from meetings, work, or from getting things needed for daily living? Patient unable to answer 09/09/2024 Housing Stability Vital Sign Answer Russell e Recorded In the last 12 months, was t here a time when you were not able to pay the mortgage or rent on time? Patient unable to answer 09/09/2024 In the past 12 months, how m any times have you moved where you were living? 1 09/09/2024 At any time in the past 12 m [facility], were you homeless or living in a snf (including now)? Patient unable to answer 09/09/2024 Sex and Gender Information Value Date Recorded Sex Assigned at Male 09/08/2024 11:50 AM EDT Legal Sex Male 12:26 PM EDT Gender Identity Male 09/08/2024 11:50 AM EDT Sexual Orientation Heterosexual (straight) 09/08 11:50 AM EDT Last Filed Vital Signs Vital Sign Reading Time Taken Comments Blood Pressure 102/60 09/22/2024 10:10 AM EDT Pulse 96 09/22/2024 10:10 AM EDT Temperature 36.4 ??C (97.6 ??F) 09/22/2024 10:10 AM E DT Respiratory Rate 18 09/22/2024 10:10 AM EDT Oxygen Saturation 95% 09/22/2024 10:10 AM EDT Inhaled Oxygen Concentration - - Weight 86.7 kg (191 lb 2.2 oz) 09/20/2024 2:30 P M EDT Height 182.9 cm (6') 09/20/2024 2:30 PM EDT Body Mass Index 25.92 09/20/2024 2:30 PM EDT Plan of Treatment Health Maintenance Due Date Last Done Comments Hepatitis C Virus Screening 1960 DTaP/Tdap/Td Vaccines (1 - Tdap) 1980 Pneumococcal Vaccines 50+ (1 of 2 - PCV) 1980 Colonoscopy 2006 Zoster (Shingles) Vaccine (1 of 2) 09/16/2011 RSV Vaccine 60 years and old er and Patients (1 - Risk 60-74 years 1-dose series) 2021 COVID-19 Vaccine (1 - 2023-2 5 season) 2024 Influenza Vaccine 12/22/2024 HIV Screening Completed 09/08/2024 Hepatitis B Vaccines Aged Out No long er eligible based on patient's age to complete this topic Procedures Procedure Name Priority Date/Time Associated Diagnosis Comments POCT GLUCOSE, FINGERSTICK (CHARGE) Routine 09/22/2024 12:14 PM EDT POCT GLUCOSE, FINGERSTICK (CHARGE) Routine 09/22/2024 8:53 AM EDT HEPARIN ASSAY (ANTI-XA) Routine 09/23/19 5:07 AM EDT PHOSPHORUS Routine 09/22/2024 5:07 AM EDT MAGNESIUM Routine 09/22/2024 5:07 AM EDT BASIC METABOLIC PANEL Routine 09/22/2024 5:07 AM EDT POCT GLUCOSE, FINGERSTICK (CHARGE) Routine 09/22/2024 1:41 AM EDT COMPLETE BLOOD COUNT, WITHOUT DIFFERENTIAL Routine 09/21/2024 9:30 PM EDT POCT GLUCOSE, FINGERSTICK (CHARGE) Routine 09/21/2024 8:41 PM EDT POCT GLUCOSE, FINGERSTICK (CHARGE) Routine 09/21/2024 5:09 PM EDT SODIUM Routine 09/21/2024 4:27 PM EDT ECG 12-LEAD Routine 09/21/2024 3:35 PM EDT POCT GLUCOSE, FINGERSTICK (CHARGE) Routine 09/21/2024 12:59 PM EDT HEPARIN ASSAY (ANTI-XA) Routine 09/22/19 11:17 AM EDT FL MODIFIED BARIUM SWALLOW W/SPEECH Routine 09/21/2024 10:31 AM EDT POCT GLUCOSE, FINGERSTICK (CHARGE) Routine 09/21/2024 8:41 AM EDT HEPARIN ASSAY (ANTI-XA) Routine 09/22/19 5:15 AM EDT PHOSPHORUS Routine 09/21/2024 5:15 AM EDT MAGNESIUM Routine 09/21/2024 5:15 AM EDT COMPLETE BLOOD COUNT, WITHOUT DIFFERENTIAL Routine 09/21/2024 5:15 AM EDT BASIC METABOLIC PANEL Routine 09/21/2024 5:15 AM EDT POCT GLUCOSE, FINGERSTICK (CHARGE) Routine 09/21/2024 4:03 AM EDT PHOSPHORUS Routine 09/21/2024 12:22 AM EDT MAGNESIUM Routine 09/21/2024 12:22 AM EDT HEPARIN ASSAY (ANTI-XA) Routine 09/22/19 12:22 AM EDT COMPLETE BLOOD COUNT, WITHOUT DIFFERENTIAL Routine 09/21/2024 12:22 AM EDT BASIC METABOLIC PANEL Routine 09/21/2024 12:22 AM EDT POCT GLUCOSE, FINGERSTICK (CHARGE) Routine 09/20/2024 11:52 PM EDT POCT GLUCOSE, FINGERSTICK (CHARGE) Routine 09/20/2024 8:18 PM EDT XR ABDOMEN 1 VIEW Timed 09/20/2024 4:5 7 PM EDT POCT GLUCOSE, FINGERSTICK (CHARGE) Routine 09/20/2024 4:32 PM EDT FEEDING TUBE PLACEMENT (NASODUODENAL/NASOJEJUN AL) Routine 09/20/2024 3:08 PM EDT SODIUM Routine 09/20/2024 12:14 PM EDT POCT GLUCOSE, FINGERSTICK (CHARGE) Routine 09/20/2024 11:47 AM EDT ECG 12-LEAD Routine 09/20/2024 9:57 AM EDT POCT GLUCOSE, FINGERSTICK (CHARGE) Routine 09/20/2024 8:09 AM EDT HEPARIN ASSAY (ANTI-XA) Routine 09/21/19 6:00 AM EDT POCT GLUCOSE, FINGERSTICK (CHARGE) Routine 09/20/2024 3:55 AM EDT MRI BRAIN W W/O CONTRAST Routine 09/20/2024 2:14 AM EDT POCT GLUCOSE, FINGERSTICK (CHARGE) Routine 09/20/2024 12:56 AM EDT PHOSPHORUS Routine 09/19/2024 11:17 PM EDT MAGNESIUM Routine 09/19/2024 11:17 PM EDT BASIC METABOLIC PANEL Routine 09/19/2024 11:17 PM EDT COMPLETE BLOOD COUNT, WITHOUT DIFFERENTIAL Routine 09/19/2024 11:17 PM EDT HEPARIN ASSAY (ANTI-XA) Routine 09/20/19 9:41 PM EDT POCT GLUCOSE, FINGERSTICK (CHARGE) Routine 09/19/2024 8:32 PM EDT POCT GLUCOSE, FINGERSTICK (CHARGE) Routine 09/19/2024 3:29 PM EDT CTA HEAD AND NECK W/O AND WITH CONTRAST STAT 09/19/2024 1:46 PM EDT SODIUM Routine 09/19/2024 1:17 PM EDT HEPARIN ASSAY (ANTI-XA) Routine 09/20/19 1:17 PM EDT POCT GLUCOSE, FINGERSTICK (CHARGE) Routine 09/19/2024 12:21 PM EDT ECG 12-LEAD Routine 09/19/2024 11:13 AM EDT HEPARIN ASSAY (ANTI-XA) Routine 09/20/19 8:05 AM EDT POCT GLUCOSE, FINGERSTICK (CHARGE) Routine 09/19/2024 7:29 AM EDT POCT GLUCOSE, FINGERSTICK (CHARGE) Routine 09/19/2024 4:09 AM EDT POCT GLUCOSE, FINGERSTICK (CHARGE) Routine 09/19/2024 12:13 AM EDT PHOSPHORUS Routine 09/19/2024 12:10 AM EDT MAGNESIUM Routine 09/19/2024 12:10 AM EDT BASIC METABOLIC PANEL Routine 09/19/2024 12:10 AM EDT COMPLETE BLOOD COUNT, WITHOUT DIFFERENTIAL Routine 09/19/2024 12:10 AM EDT HEPARIN ASSAY (ANTI-XA) Routine 09/20/19 12:10 AM EDT POCT GLUCOSE, FINGERSTICK (CHARGE) Routine 09/18/2024 8:06 PM EDT POCT GLUCOSE, FINGERSTICK (CHARGE) Routine 09/18/2024 5:01 PM EDT EXTUBATION Routine 09/18/2024 2:19 PM EDT POCT GLUCOSE, FINGERSTICK (CHARGE) Routine 09/18/2024 11:25 AM EDT BLOOD GAS WITH COOXIMETRY, ARTERIAL Routine 09/18/2024 11:13 AM EDT ECG 12-LEAD Routine 09/18/2024 9:56 AM EDT POCT GLUCOSE, FINGERSTICK (CHARGE) Routine 09/18/2024 7:42 AM EDT POCT GLUCOSE, FINGERSTICK (CHARGE) Routine 09/18/2024 3:38 AM EDT HEPARIN ASSAY (ANTI-XA) Routine 09/19/19 12:10 AM EDT PHOSPHORUS Routine 09/18/2024 12:10 AM EDT MAGNESIUM Routine 09/18/2024 12:10 AM EDT BASIC METABOLIC PANEL Routine 09/18/2024 12:10 AM EDT COMPLETE BLOOD COUNT, WITHOUT DIFFERENTIAL Routine 09/18/2024 12:10 AM EDT POCT GLUCOSE, FINGERSTICK (CHARGE) Routine 09/17/2024 11:45 PM EDT HEPARIN ASSAY (ANTI-XA) Routine 09/18/19 9:00 PM EDT POCT GLUCOSE, FINGERSTICK (CHARGE) Routine 09/17/2024 7:47 PM EDT POCT GLUCOSE, FINGERSTICK (CHARGE) Routine 09/17/2024 4:36 PM EDT ALBUMIN Routine 09/17/2024 3:11 PM EDT PHOSPHORUS Routine 09/17/2024 3:11 PM EDT MAGNESIUM Routine 09/17/2024 3:11 PM EDT BASIC METABOLIC PANEL Routine 09/17/2024 3:11 PM EDT HEPARIN ASSAY (ANTI-XA) Routine 09/18/19 3:11 PM EDT POCT GLUCOSE, FINGERSTICK (CHARGE) Routine 09/17/2024 11:42 AM EDT ECG 12-LEAD Routine 09/17/2024 8:49 AM EDT POCT GLUCOSE, FINGERSTICK (CHARGE) Routine 09/17/2024 7:39 AM EDT EEG LONG-TERM MONITORING Routine 09/17/2024 6:43 AM EDT HEPARIN ASSAY (ANTI-XA) Routine 09/18/19 6:33 AM EDT POCT GLUCOSE, FINGERSTICK (CHARGE) Routine 09/17/2024 3:41 AM EDT HEPARIN ASSAY (ANTI-XA) Routine 09/18/19 12:30 AM EDT PHOSPHORUS Routine 09/17/2024 12:30 AM EDT MAGNESIUM Routine 09/17/2024 12:30 AM EDT BASIC METABOLIC PANEL Routine 09/17/2024 12:30 AM EDT COMPLETE BLOOD COUNT, WITHOUT DIFFERENTIAL Routine 09/17/2024 12:30 AM EDT POCT GLUCOSE, FINGERSTICK (CHARGE) Routine 09/16/2024 11:55 PM EDT POCT GLUCOSE, FINGERSTICK (CHARGE) Routine 09/16/2024 7:20 PM EDT EEG LONG-TERM MONITORING Routine 09/16/2024 6:55 PM EDT COMPLETE BLOOD COUNT, WITHOUT DIFFERENTIAL Routine 09/16/2024 6:43 PM EDT PARTIAL THROMBOPLASTIN TIME (PTT) Routine 09/16/2024 5:07 PM EDT PROTIME-INR Routine 09/16/2024 5:07 PM EDT COMPLETE BLOOD COUNT, WITH DIFFERENTIAL Routine 09/16/2024 5:07 PM EDT SODIUM Routine 09/16/2024 4:16 PM EDT BLOOD CULTURE (HOSP LAB) Routine 09/16/2024 4:16 PM EDT BLOOD CULTURE (HOSP LAB) Routine 09/16/2024 4:16 PM EDT POCT GLUCOSE, FINGERSTICK (CHARGE) Routine 09/16/2024 4:03 PM EDT POCT GLUCOSE, FINGERSTICK (CHARGE) Routine 09/16/2024 1:04 PM EDT MRV HEAD W W/O CONTRAST Routine 09/17/19 12:49 PM EDT POCT GLUCOSE, FINGERSTICK (CHARGE) Routine 09/16/2024 7:53 AM EDT ECG 12-LEAD Routine 09/16/2024 7:34 AM EDT POCT GLUCOSE, FINGERSTICK (CHARGE) Routine 09/16/2024 3:26 AM EDT POCT GLUCOSE, FINGERSTICK (CHARGE) Routine 2024 11:33 PM EDT PHOSPHORUS Routine 2024 11:28 PM EDT MAGNESIUM Routine 2024 11:28 PM EDT BASIC METABOLIC PANEL Routine 2024 11:28 PM EDT COMPLETE BLOOD COUNT, WITHOUT DIFFERENTIAL Routine 2024 11:28 PM EDT POCT GLUCOSE, FINGERSTICK (CHARGE) Routine 2024 8:11 PM EDT POCT GLUCOSE, FINGERSTICK (CHARGE) Routine 2024 8:01 PM EDT POCT GLUCOSE, FINGERSTICK (CHARGE) Routine 2024 3:54 PM EDT EEG ROUTINE STAT 2024 2:41 PM EDT PHOSPHORUS Routine 2024 12:42 PM EDT MAGNESIUM Routine 2024 12:42 PM EDT BASIC METABOLIC PANEL Routine 2024 12:42 PM EDT POCT GLUCOSE, FINGERSTICK (CHARGE) Routine 2024 12:09 PM EDT BLOOD GAS WITH COOXIMETRY, VENOUS Routine 2024 11:36 AM EDT ECG 12-LEAD Routine 2024 8:19 AM EDT POCT GLUCOSE, FINGERSTICK (CHARGE) Routine 2024 7:52 AM EDT POCT GLUCOSE, FINGERSTICK (CHARGE) Routine 2024 3:44 AM EDT PROBNP, N-TERMINAL Routine 2024 12 :26 AM EDT HEPATIC FUNCTION PANEL Routine 12:26 AM EDT COMPLETE BLOOD COUNT, WITHOUT DIFFERENTIAL Routine 2024 12:26 AM EDT PHOSPHORUS Routine 2024 12:26 AM EDT MAGNESIUM Routine 2024 12:26 AM EDT BASIC METABOLIC PANEL Routine 2024 12:26 AM EDT POCT GLUCOSE, FINGERSTICK (CHARGE) Routine 09/14/2024 11:40 PM EDT POCT GLUCOSE, FINGERSTICK (CHARGE) Routine 09/14/2024 7:22 PM EDT PHOSPHORUS Routine 09/14/2024 4:31 PM EDT MAGNESIUM Routine 09/14/2024 4:31 PM EDT BASIC METABOLIC PANEL Routine 09/14/2024 4:31 PM EDT POCT GLUCOSE, FINGERSTICK (CHARGE) Routine 09/14/2024 3:36 PM EDT POCT GLUCOSE, FINGERSTICK (CHARGE) Routine 09/14/2024 11:19 AM EDT POCT GLUCOSE, FINGERSTICK (CHARGE) Routine 09/14/2024 8:08 AM EDT POCT GLUCOSE, FINGERSTICK (CHARGE) Routine 09/14/2024 3:13 AM EDT HEPATIC FUNCTION PANEL Routine 12:11 AM EDT PHOSPHORUS Routine 09/14/2024 12:11 AM EDT MAGNESIUM Routine 09/14/2024 12:11 AM EDT BASIC METABOLIC PANEL Routine 09/14/2024 12:11 AM EDT COMPLETE BLOOD COUNT, WITHOUT DIFFERENTIAL Routine 09/14/2024 12:11 AM EDT POCT GLUCOSE, FINGERSTICK (CHARGE) Routine 09/14/2024 12:01 AM EDT ECG 12-LEAD Routine 09/13/2024 8:47 PM EDT POCT GLUCOSE, FINGERSTICK (CHARGE) Routine 09/13/2024 7:51 PM EDT POCT GLUCOSE, FINGERSTICK (CHARGE) Routine 09/13/2024 4:09 PM EDT PHOSPHORUS Routine 09/13/2024 2:20 PM EDT MAGNESIUM Routine 09/13/2024 2:20 PM EDT BASIC METABOLIC PANEL Routine 09/13/2024 2:20 PM EDT POCT GLUCOSE, FINGERSTICK (CHARGE) Routine 09/13/2024 11:57 AM EDT ECG 12-LEAD Routine 09/13/2024 8:41 AM EDT POCT GLUCOSE, FINGERSTICK (CHARGE) Routine 09/13/2024 7:29 AM EDT POCT GLUCOSE, FINGERSTICK (CHARGE) Routine 09/13/2024 3:30 AM EDT POCT GLUCOSE, FINGERSTICK (CHARGE) Routine 09/13/2024 12:27 AM EDT PROBNP, N-TERMINAL Routine 09/13/2024 12 :27 AM EDT PHOSPHORUS Routine 09/13/2024 12:27 AM EDT MAGNESIUM Routine 09/13/2024 12:27 AM EDT BASIC METABOLIC PANEL Routine 09/13/2024 12:27 AM EDT COMPLETE BLOOD COUNT, WITHOUT DIFFERENTIAL Routine 09/13/2024 12:27 AM EDT MRI BRAIN W W/O CONTRAST Routine 09/13/2024 12:03 AM EDT POCT GLUCOSE, FINGERSTICK (CHARGE) Routine 09/12/2024 7:57 PM EDT POCT GLUCOSE, FINGERSTICK (CHARGE) Routine 09/12/2024 4:05 PM EDT POCT GLUCOSE, FINGERSTICK (CHARGE) Routine 09/12/2024 11:30 AM EDT POCT GLUCOSE, FINGERSTICK (CHARGE) Routine 09/12/2024 7:37 AM EDT VAS VENOUS DUPLEX ARM (DVT)-BILATERAL Routine 09/12/2024 7:26 AM EDT POCT GLUCOSE, FINGERSTICK (CHARGE) Routine 09/12/2024 3:28 AM EDT CTA HEAD AND NECK W/O AND WITH CONTRAST Routine 09/12/2024 1:43 AM EDT HEPATIC FUNCTION PANEL Routine 12:19 AM EDT RETICULOCYTE COUNT Routine 09/12/2024 12 :19 AM EDT HAPTOGLOBIN Routine 09/12/2024 12:19 AM EDT LACTATE DEHYDROGENASE (LDH) Routine 09/12/2024 12:19 AM EDT COMPLETE BLOOD COUNT, WITH DIFFERENTIAL Routine 09/12/2024 12:19 AM EDT PHOSPHORUS Routine 09/12/2024 12:19 AM EDT MAGNESIUM Routine 09/12/2024 12:19 AM EDT BASIC METABOLIC PANEL Routine 09/12/2024 12:19 AM EDT POCT GLUCOSE, FINGERSTICK (CHARGE) Routine 09/11/2024 11:33 PM EDT POCT GLUCOSE, FINGERSTICK (CHARGE) Routine 09/11/2024 7:44 PM EDT POCT GLUCOSE, FINGERSTICK (CHARGE) Routine 09/11/2024 4:50 PM EDT POCT GLUCOSE, FINGERSTICK (CHARGE) Routine 09/11/2024 3:24 PM EDT POCT GLUCOSE, FINGERSTICK (CHARGE) Routine 09/11/2024 1:53 PM EDT PROTEINASE-3 ANTIBODY Routine 09/11/2024 11:15 AM EDT MYELOPEROXIDASE ANTIBODY Routine 09/11/2024 11:15 AM EDT ANCA SCREEN, REFLEX TITER Routine 09/11/2024 11:15 AM EDT COMPLEMENT C4 [id number] Routine 09/11/2024 11:15 AM EDT COMPLEMENT C3 [id number] Routine 09/11/2024 11:15 AM EDT DOUBLE STRAND DNA (DSDNA) ANTIBODY SCREEN, CRITHIDIA, REFLEX TITER Routine 09/11/2024 11:15 AM EDT CYCLIC CITRULLINATED PEPTIDE ANTIBODY IGG [id number] Routine 09/11/2024 11:15 AM EDT LUPUS ANTICOAGULANT SCREEN W/ REFLEX Routine 09/11/2024 11:15 AM EDT GLOMERULAR BASEMENT MEMBRANE AB, IGG Routine 09/11/2024 11:15 AM EDT COMPLETE BLOOD COUNT, WITHOUT DIFFERENTIAL Routine 09/11/2024 11:15 AM EDT BASIC METABOLIC PANEL Routine 09/11/2024 11:15 AM EDT POCT GLUCOSE, FINGERSTICK (CHARGE) Routine 09/11/2024 11:09 AM EDT ECHOCARDIOGRAM (TTE) COMPREHENSIVE (CONTRAST PRN) Routine 09/11/2024 7:45 AM EDT ECG 12-LEAD Routine 09/11/2024 7:43 AM EDT POCT GLUCOSE, FINGERSTICK (CHARGE) Routine 09/11/2024 7:38 AM EDT POCT GLUCOSE, FINGERSTICK (CHARGE) Routine 09/11/2024 3:41 AM EDT PHOSPHORUS Routine 09/11/2024 12:10 AM EDT MAGNESIUM Routine 09/11/2024 12:10 AM EDT BASIC METABOLIC PANEL Routine 09/11/2024 12:10 AM EDT COMPLETE BLOOD COUNT, WITHOUT DIFFERENTIAL Routine 09/11/2024 12:10 AM EDT POCT GLUCOSE, FINGERSTICK (CHARGE) Routine 09/11/2024 12:07 AM EDT POCT GLUCOSE, FINGERSTICK (CHARGE) Routine 09/10/2024 7:45 PM EDT POCT GLUCOSE, FINGERSTICK (CHARGE) Routine 09/10/2024 4:08 PM EDT TRANSFUSE PLATELETS Routine 09/10/2024 4 :05 PM EDT PREPARE PLATELETS Routine 09/10/2024 2:3 6 PM EDT COMPLETE BLOOD COUNT, WITHOUT DIFFERENTIAL Routine 09/10/2024 12:09 PM EDT PHOSPHORUS Routine 09/10/2024 12:09 PM EDT MAGNESIUM Routine 09/10/2024 12:09 PM EDT BASIC METABOLIC PANEL Routine 09/10/2024 12:09 PM EDT TRIGLYCERIDES Routine 09/10/2024 12:09 PM EDT POCT GLUCOSE, FINGERSTICK (CHARGE) Routine 09/10/2024 11:31 AM EDT POCT GLUCOSE, FINGERSTICK (CHARGE) Routine 09/10/2024 7:55 AM EDT POCT GLUCOSE, FINGERSTICK (CHARGE) Routine 09/10/2024 4:07 AM EDT PHOSPHORUS Routine 09/09/2024 11:55 PM EDT MAGNESIUM Routine 09/09/2024 11:55 PM EDT BASIC METABOLIC PANEL Routine 09/09/2024 11:55 PM EDT COMPLETE BLOOD COUNT, WITHOUT DIFFERENTIAL Routine 09/09/2024 11:55 PM EDT POCT GLUCOSE, FINGERSTICK (CHARGE) Routine 09/09/2024 11:31 PM EDT POCT GLUCOSE, FINGERSTICK (CHARGE) Routine 09/09/2024 7:57 PM EDT POCT GLUCOSE, FINGERSTICK (CHARGE) Routine 09/09/2024 4:05 PM EDT PHOSPHORUS Routine 09/09/2024 12:22 PM EDT MAGNESIUM Routine 09/09/2024 12:22 PM EDT BASIC METABOLIC PANEL Routine 09/09/2024 12:22 PM EDT COMPLETE BLOOD COUNT, WITHOUT DIFFERENTIAL Routine 09/09/2024 12:22 PM EDT POCT GLUCOSE, FINGERSTICK (CHARGE) Routine 09/09/2024 11:21 AM EDT POCT GLUCOSE, FINGERSTICK (CHARGE) Routine 09/09/2024 8:02 AM EDT BLOOD GAS WITH COOXIMETRY, VENOUS Routine 09/09/2024 5:49 AM EDT HEMOGLOBIN AND HEMATOCRIT Routine 09/09/2024 5:49 AM EDT POCT GLUCOSE, FINGERSTICK (CHARGE) Routine 09/09/2024 3:29 AM EDT POCT GLUCOSE, FINGERSTICK (CHARGE) Routine 09/08/2024 11:33 PM EDT BLOOD GAS, ARTERIAL Routine 09/08/2024 1 1:09 PM EDT FOLATE LEVEL Routine 09/08/2024 11:09 PM EDT IRON Routine 09/08/2024 11:09 PM EDT VITAMIN B12 Routine 09/08/2024 11:09 PM EDT PHOSPHORUS Routine 09/08/2024 11:09 PM EDT MAGNESIUM Routine 09/08/2024 11:09 PM EDT BASIC METABOLIC PANEL Routine 09/08/2024 11:09 PM EDT COMPLETE BLOOD COUNT, WITHOUT DIFFERENTIAL Routine 09/08/2024 11:09 PM EDT HEMOGLOBIN A1C WITH ESTIMATED AVERAGE GLUCOSE Routine 09/08/2024 11:09 PM EDT POCT GLUCOSE, FINGERSTICK (CHARGE) Routine 09/08/2024 7:59 PM EDT TRANSFUSE PLATELETS Routine 09/08/2024 5 :30 PM EDT BLOOD GAS, ARTERIAL Routine 09/08/2024 4 :09 PM EDT HIV 1/2 AG/AB CMIA REFLEX TO CONFIRMATION Routine 09/08/2024 4:09 PM EDT C-REACTIVE PROTEIN Routine 09/08/2024 4: 09 PM EDT ERYTHROCYTE SEDIMENTATION RATE (ESR) Routine 09/08/2024 4:09 PM EDT FERRITIN Routine 09/08/2024 4:09 PM EDT PREPARE PLATELETS Routine 09/08/2024 3:4 8 PM EDT POCT GLUCOSE, FINGERSTICK (CHARGE) Routine 09/08/2024 3:46 PM EDT (REPORT) DIFFERENTIAL, FLUID DFBF Routine 09/08/2024 1:31 PM EDT CELL COUNT REFLEX DIFFERENTIAL, BODY FLUID Routine 09/08/2024 1:31 PM EDT LEGIONELLA CULTURE Routine 09/08/2024 1: 31 PM EDT PNEUMOCYSTIS JIROVECII (CARINII) DFA [id number] Routine 09/08/2024 1:31 PM EDT FUNGAL CULTURE (NON-BLOOD) Routine 09/08/2024 1:31 PM EDT RESPIRATORY CULTURE (AEROBIC AND GRAM STAIN) Routine 09/08/2024 1:31 PM EDT CYTOLOGY REPORT Routine 09/08/2024 1:27 PM EDT BLOOD GAS, ARTERIAL Routine 09/08/2024 1 2:23 PM EDT PATHOLOGY SMEAR REVIEW, WHOLE BLOOD Routine 09/08/2024 12:15 PM EDT PROBNP, N-TERMINAL Routine 09/08/2024 12 :15 PM EDT PLATELET COUNT Routine 09/08/2024 12:15 PM EDT TRIGLYCERIDES Routine 09/08/2024 12:15 PM EDT RED BLOOD CELL MORPHOLOGY Routine 09/08/2024 12:15 PM EDT RETICULOCYTE COUNT Routine 09/08/2024 12 :15 PM EDT HEPATIC FUNCTION PANEL Routine 12:15 PM EDT HAPTOGLOBIN Routine 09/08/2024 12:15 PM EDT LACTATE DEHYDROGENASE (LDH) Routine 09/08/2024 12:15 PM EDT LEGIONELLA & STREPTOCOCCUS PNEUMONIAE ANTIGEN, URINE Routine 09/08/2024 12:[address] THORAX W/O CONTRAST Routine 12:[address] HEAD W/O CONTRAST Routine 09/08/2024 12:07 PM EDT XR CHEST 1 VIEW-PORTABLE Routine 09/08/2024 10:32 AM EDT ANES INTUBATION Routine 09/08/2024 10:04 AM EDT XR CHEST 1 VIEW-PORTABLE Routine 09/08/2024 9:59 AM EDT VAS VENOUS DUPLEX LEG (DVT)-BILATERAL Routine 09/08/2024 9:26 AM EDT POCT GLUCOSE, FINGERSTICK (CHARGE) Routine 09/08/2024 8:13 AM EDT ECG 12-LEAD Routine 09/08/2024 8:11 AM EDT INFLUENZA A/B, RSV, SARS-COV-2 JEFF MULTIPLEX Routine 09/08/2024 5:24 AM EDT POCT GLUCOSE, FINGERSTICK (CHARGE) Routine 09/08/2024 4:09 AM EDT TRANSFUSE PLATELETS Routine 09/08/2024 3 :17 AM EDT PREPARE PLATELETS Routine 09/08/2024 2:4 8 AM EDT BLOOD GAS WITH COOXIMETRY, VENOUS Routine 09/08/2024 2:17 AM EDT FIBRINOGEN LEVEL Routine 09/08/2024 1:32 AM EDT THROMBIN TIME Routine 09/08/2024 1:32 AM EDT PARTIAL THROMBOPLASTIN TIME (PTT) Routine 09/08/2024 1:32 AM EDT PROTIME-INR Routine 09/08/2024 1:32 AM EDT ABO CONFIRMATION Routine 09/08/2024 1:17 AM EDT PHOSPHORUS Routine 09/08/2024 1:17 AM EDT MAGNESIUM Routine 09/08/2024 1:17 AM EDT BASIC METABOLIC PANEL Routine 09/08/2024 1:17 AM EDT COMPLETE BLOOD COUNT, WITHOUT DIFFERENTIAL Routine 09/08/2024 1:17 AM EDT POCT GLUCOSE, FINGERSTICK (CHARGE) Routine 09/08/2024 12:02 AM EDT FLOW CYTOMETRY REPORT Routine 09/08/2024 12:00 AM EDT POCT GLUCOSE, FINGERSTICK (CHARGE) Routine 09/07/2024 10:21 PM EDT ECG 12-LEAD Routine 09/07/2024 10:05 PM EDT BLOOD GAS WITH COOXIMETRY, ARTERIAL Routine 09/07/2024 9:51 PM EDT ECG 12-LEAD Routine 09/07/2024 8:33 PM EDT POCT GLUCOSE, FINGERSTICK (CHARGE) Routine 09/07/2024 7:51 PM EDT EAR CULTURE Routine 09/07/2024 7:47 PM EDT GUILLE ARCHIVE FOR REFERENCE ONLY CT Routine 09/07/2024 7:20 PM EDT GUILLE ARCHIVE FOR REFERENCE ONLY CT Routine 09/07/2024 7:15 PM EDT GUILLE ARCHIVE FOR REFERENCE ONLY CT Routine 09/07/2024 7:10 PM EDT GUILLE ARCHIVE FOR REFERENCE ONLY CR Routine 09/07/2024 7:10 PM EDT GUILLE ARCHIVE FOR REFERENCE ONLY MR Routine 09/07/2024 7:10 PM EDT GUILLE ARCHIVE FOR REFERENCE ONLY CT Routine 09/07/2024 7:05 PM EDT GUILLE ARCHIVE FOR REFERENCE ONLY CR Routine 09/07/2024 7:05 PM EDT GUILLE ARCHIVE FOR REFERENCE ONLY MR Routine 09/07/2024 7:05 PM EDT TYPE AND SCREEN Routine 09/07/2024 6:55 PM EDT LACTIC ACID, PLASMA Routine 09/07/2024 6 :24 PM EDT XR CHEST 1 VIEW-PORTABLE Routine 09/07/2024 5:11 PM EDT FIBRINOGEN LEVEL Routine 09/07/2024 5:03 PM EDT THROMBIN TIME Routine 09/07/2024 5:03 PM EDT PARTIAL THROMBOPLASTIN TIME (PTT) Routine 09/07/2024 5:03 PM EDT PROTIME-INR Routine 09/07/2024 5:03 PM EDT BLOOD CULTURE (HOSP LAB) Routine 09/07/2024 5:02 PM EDT BLOOD CULTURE (HOSP LAB) Routine 09/07/2024 4:53 PM EDT PROBNP, N-TERMINAL Routine 09/07/2024 4: 36 PM EDT HIGH SENSITIVITY TROPONIN T Routine 09/07/2024 4:36 PM EDT HEPATIC FUNCTION PANEL Routine 4:36 PM EDT TSH, HIGHLY SENSITIVE Routine 09/07/2024 4:36 PM EDT PHOSPHORUS Routine 09/07/2024 4:36 PM EDT MAGNESIUM Routine 09/07/2024 4:36 PM EDT BASIC METABOLIC PANEL Routine 09/07/2024 4:36 PM EDT COMPLETE BLOOD COUNT, WITH DIFFERENTIAL Routine 09/07/2024 4:36 PM EDT NASAL MRSA SCREEN, PCR Routine 4:36 PM EDT POCT GLUCOSE, FINGERSTICK (CHARGE) Routine 09/07/2024 4:17 PM EDT from Last 3 Months Results * (ABNORMAL) POCT Glucose, Fingerstick (09/22/2024 12:14 PM EDT) Only the most recent of92 resultswithin the time period is included. POC Glucose 132(H) 65 - 99 mg/dL 09/22/2024 12:14 PM EDT Blood specimen / Unknown 09/22/2024 12:14 PM EDT 09/22/2024 12:15 PM EDT us Danny Barr MD POINT OF CARE TEST ORDERABLES Fi nal Result HOSPITAL LAB See Below * Heparin Assay (Anti Xa) (09/22/2024 5:07 AM EDT) Only the most recent of14 resultswithin the time period is included. Anti Xa 0.33 IU/mL 09/22/2024 6:13 AM EDT [facility] Comment: (NOTE) Heparin Thromboembolic/Standard/Full Dose Protocol: Therapeutic Range: ? Age 18+: ? 0.30 - 0.70 IU/mL ? Age 0 - 17: ?? 0.35 - 0.70 IU/mL ? Heparin Cardiac/Low Dose Protocol: ? Therapeutic Range: ? 0.30 - 0.50 IU/mL ? Low Molecular Weight Heparin: ? Therapeutic Range: ? Age 18+: ?? 0.50 - 1.09 IU/mL for twice daily dosing (or adjusted to daily for poor renal function) ? Age 18+: ?? 1.00 - 2.00 ??IU/mL for once daily dosing ? Age 0-17: ??0.50 - 1.00 IU/mL Anticoagulant IV HEPARIN, UNFRACTIONATED 09/21/2024 11:00 PM EDT [facility] Blood Blood specimen / Unknown 09/22/2024 5:07 AM EDT 09/22/2024 5:48 AM EDT Kay Salinas DO LAB BLOOD ORDERABLES Final Result Performing Organization Address [facility] [place] [address], [place] [address] * (ABNORMAL) Phosphorus (Early AM) (09/22/2024 5:07 AM EDT) Only the most recent of23 resultswithin the time period is included. Phosphorus 2.4(L) 2.7 - 4.5 mg/dL 09/22/2024 6:21 AM EDT [facility] Blood Blood specimen / Unknown 09/22/2024 5:07 AM EDT 09/22/2024 5:48 AM EDT Kay Salinas DO LAB BLOOD ORDERABLES Final Result Performing Organization Address [facility] [place] [address], [place] [address] * MAGNESIUM (09/22/2024 5:07 AM EDT) Only the most recent of23 resultswithin the time period is included. Magnesium 2.5 1.6 - 2.7 mg/dL 09/22/2024 6:21 AM [facility] Blood Blood specimen / Unknown 09/22/2024 5:07 AM EDT 09/22/2024 5:48 AM EDT Kay Salinas DO LAB BLOOD ORDERABLES Final Result [address] [address], [address] [address] * (ABNORMAL) BASIC METABOLIC PANEL (09/22/2024 5:07 AM EDT) Only the most recent of24 resultswithin the time period is included. Glucose 85 65 - 99 mg/dL 09/22/2024 6:21 AM [facility] Comment:Fasting: <100 mg/dL, Non-Fasting: <200 mg/dL (ADA 2004) Blood Urea Nitrogen (BUN) 25(H) 8 - 21 mg/dL 09/22/2024 6:21 AM [facility] Creatinine 0.7 0.5 - 1.3 mg/dL 09/22/2024 6:21 AM [facility] eGFR >90 >59 09/22/2024 6:21 AM [facility] Comment:CKD-EPI (2020) in mL /min/1.73 sq meters. Sodium 146(H) 136 - 145 mmol/L 09/22/2024 6:21 AM [facility] Potassium 4.0 3.4 - 5.3 mmol/L 09/22/2024 6:21 AM [facility] Chloride 119(H) 98 - 107 mmol/L 09/22/2024 6:21 AM [facility] CO2 19(L) 22 - 33 mmol/L 09/22/2024 6:21 AM [facility] Anion Gap 8 7 - 17 09/22/2024 6:21 AM [facility] Calcium 7.4(L) 8.7 - 10.5 mg/dL 09/22/2024 6:21 AM [facility] BUN/Creatinine Ratio 36(H) 10.0 - 25.0 Ratio 09/22/2024 6:21 AM [facility] Blood Blood specimen / Unknown 09/22/2024 5:07 AM EDT 09/22/2024 5:48 AM EDT Kay Salinas DO LAB BLOOD ORDERABLES Final Result [address] [address], [address] [address] * (ABNORMAL) Complete Blood Count, WITHOUT Differential (routine) (09/21/2024 9:30 PM EDT) Only the most recent of19 resultswithin the time period is included. White Blood Cell Count 10.4 4.0 - 11.0 Thou/uL 09/21/2024 10:52 PM [facility] Platelet Count 216 150 - 450 Thou/uL 09/21/2024 10:52 PM [facility] Hemoglobin 8.2(L) 13.0 - 17.7 g/dL 09/21/2024 10:52 PM [facility] Hematocrit 25.8(L) 39.0 - 54.0 % 09/21/2024 10:52 PM [facility] Red Blood Cell Count 2.44(L) 4.50 - 6.20 Mil/uL 09/21/2024 10:52 PM [facility] MCV 106(H) 80 - 100 fL 09/21/2024 10:52 PM [facility] MCH 33.6(H) 27.0 - 31.0 pg 09/21/2024 10:52 PM [facility] MCHC 31.8 30.0 - 36.0 g/dL 09/21/2024 10:52 PM [facility] RDW 23.2(H) 11.5 - 14.5 % 09/21/2024 10:52 PM [facility] MPV 12.6(H) 7.5 - 12.5 fL 09/21/2024 10:52 PM [facility] nRBC 0.2(H) 0.0 - 0.1 /100 WBC 09/21/2024 10:52 PM [facility] nRBC, Absolute 0.02 0.00 - 0.02 Thou/uL 09/21/2024 10:52 PM EDT [facility] Blood Blood specimen / Unknown 09/21/2024 9:30 PM EDT 09/21/2024 10:20 PM EDT [facility] Final Result Performing Organization Address [facility] [place] [address], [place] [address] * (ABNORMAL) Sodium (09/21/2024 4:27 PM EDT) Only the most recent of4 resultswithin the time period is included. Sodium 146(H) 136 - 145 mmol/L 09/21/2024 5:19 PM EDT [facility] Blood Blood specimen / Unknown 09/21/2024 4:27 PM EDT 09/21/2024 4:35 PM EDT [facility] BLOOD ORDERABLES Final Result Performing Organization Address [facility] [place] [address], [place] [address] * ECG 12 lead (09/21/2024 3:35 PM EDT) Only the most recent of13 resultswithin the time period is included. Ventricular rate 75 BPM EKG [facility] Atrial rate 75 BPM EKG [facility] P-R interval 116 ms EKG [facility] QRS duration 126 ms EKG [facility] Q-T interval 464 ms EKG [facility] QTC calculation (Bazett) 519 ms EKG [facility] P axis 58 degrees EKG [facility] R axis 67 degrees EKG [facility] T axis 60 degrees EKG [facility] 09/21/2024 3:35 PM EDT Narrative EKG [facility] - 09/21/2024 5:34 PM EDT Normal sinus rhythm Right bundle branch block Abnormal ECG When compared with ECG of 20-Sep-2024 09:57, Borderline criteria for Inferior infarct are no longer Present T wave inversion more evident in Anterior leads Confirmed by MD Webb Ahmed ([id number]) on 09/21/2024 5:34:20 PM Procedure Note Timothy Webb MD - 09/21/2024 Normal sinus rhythm Right bundle branch block Abnormal ECG When compared with ECG of 20-Sep-2024 09:57, Borderline criteria for Inferior infarct are no longer Present T wave inversion more evident in Anterior leads Confirmed by MD Webb Ahmed ([id number]) on 09/21/2024 5:34:20 PM Daiana Guzman PA-C ECG ORDERABLES Final Result EKG [facility] * FL Modified barium swallow w/speech (09/21/2024 10:31 AM EDT) Anatomical Region Laterality Modality Radio Fluoroscop y 09/21/2024 10:0 8 AM EDT Impressions 09/21/2024 4:43 PM EDT 1. ??Aspiration with mildly thick and moderately thick consistencies. Penetration with thin liquids. 2. ??Please refer to speech pathology notes for further details and dietary recommendations. Narrative 09/21/2024 4:43 PM EDT EXAMINATION: FL BARIUM SWALLOW MODIFIED CLINICAL INFORMATION: Dysphagia. COMPARISON: None available. TECHNIQUE: Routine modified barium swallow was performed. The patient took several consistencies of barium without difficulty. ??The examination was performed with the speech pathologist present. ?? FLUOROSCOPY TIME: 3.5 minutes. DOSE AREA PRODUCT: 66.23 uGy-m2 (microgray-meter squared) FINDINGS: Moderate oral and pharyngeal phase impairments. Pharyngeal residue along the vallecula and pyriforms which mostly cleared following repeat swallows and liquid wash. Aspiration with mildly thick and moderately thick consistencies. Penetration with thin liquids. No penetration or aspiration with puree consistency. Procedure Note Palmer Dooley MD - 09/21/2024 EXAMINATION: FL BARIUM SWALLOW MODIFIED CLINICAL INFORMATION: Dysphagia. COMPARISON: None available. TECHNIQUE: Routine modified barium swallow was performed. The patient took several consistencies of barium without difficulty. The examination was performed with the speech pathologist present. FLUOROSCOPY TIME: 3.5 minutes. DOSE AREA PRODUCT: 66.23 uGy-m2 (microgray-meter squared) FINDINGS: Moderate oral and pharyngeal phase impairments. Pharyngeal residue along the vallecula and pyriforms which mostly cleared following repeat swallows and liquid wash. Aspiration with mildly thick and moderately thick consistencies. Penetration with thin liquids. No penetration or aspiration with puree consistency. IMPRESSION: 1. Aspiration with mildly thick and moderately thick consistencies. Penetration with thin liquids. 2. Please refer to speech pathology notes for further details and dietary recommendations. us Renee Pereyra DO IMG FLUOROSCOPY ORDERABL ES Final Result * XR Abdomen 1 view (09/20/2024 4:57 PM EDT) Anatomical Region Laterality Modality Abdomen Computed Radiogr aphy 09/20/2024 3:59 PM EDT Impressions 09/21/2024 4:42 AM EDT Dobbhoff tube subdiaphragmatic with the tip overlying the distal duodenum. Interpreted by: ??Jimbo Licona MD Shank Scourer I personally reviewed the images and the resident's preliminary report and AGREE with the report as it is now presented ([email or web address]). Narrative 09/21/2024 4:42 AM EDT EXAMINATION: XR ABDOMEN KUB CLINICAL INDICATION: DHT placement COMPARISON: CT abdomen/pelvis 09/06/2024 TECHNIQUE: AP view of the abdomen. FINDINGS: Dobbhoff tube subdiaphragmatic with the tip overlying the distal duodenum. Nonobstructive bowel gas pattern. No obvious pneumoperitoneum. No unusual soft tissue calcifications. No acute osseous abnormalities. Bibasilar linear opacities which can be better assessed with dedicated chest radiograph. Procedure Note Macario Palencia MD - 09/21/2024 EXAMINATION: XR ABDOMEN KUB CLINICAL INDICATION: DHT placement COMPARISON: CT abdomen/pelvis 09/06/2024 TECHNIQUE: AP view of the abdomen. FINDINGS: Dobbhoff tube subdiaphragmatic with the tip overlying the distal duodenum. Nonobstructive bowel gas pattern. No obvious pneumoperitoneum. No unusual soft tissue calcifications. No acute osseous abnormalities. Bibasilar linear opacities which can be better assessed with dedicated chest radiograph. IMPRESSION: Dobbhoff tube subdiaphragmatic with the tip overlying the distal duodenum. Interpreted by: Jimbo Licona MD Shank Scourer I personally reviewed the images and the resident's preliminary report and AGREE with the report as it is now presented ([email or web address]). us Renee Pereyra DO IMG DIAGNOSTIC IMAGING O RDERABLES Final Result * DHT insertion (09/20/2024 3:08 PM EDT) Pierre Kendrick RN - 09/20/2024 3:08 PM EDT Pierre Worthy RN ? 09/20/2024 ??3:10 PM DHT insertion Date/Time: 09/20/2024 3:08 PM Performed by: Pierre Worthy RN Authorized by: Renee Pereyra DO ??Consent: Written consent obtained Risks and benefits: risks, benefits and alternatives were discussed Consent given by: power of criminal attorney Patient states understanding of procedure being performed: HCR signed. Patient's understanding of procedure matches consent: HCR signed. Procedure consent: procedure consent matches procedure scheduled Relevant documents: relevant documents present and verified Site marked: the operative site was marked Imaging studies: imaging studies available Required items: required blood products, implants, devices, and special equipment available Patient identity confirmed: arm band and hospital-assigned identification number Time out: Immediately prior to procedure a time out was called to verify the correct patient, procedure, equipment, client support administrator and site/side marked as required. Local anesthesia used: no Anesthesia: Local anesthesia used: no Patient tolerance: patient tolerated the procedure well with no immediate complications Renee Pereyra DO PROCEDURE/MINOR SURGICAL PERFORMABLES Final Result * MRI Brain w w/o contrast (09/20/2024 2:14 AM EDT) Only the most recent of2 resultswithin the time period is included. Anatomical Region Laterality Modality Head Magnetic Resonan ce 09/20/2024 1:36 AM EDT Impressions 09/20/2024 9:43 AM EDT 1. No acute territorial infarction or parenchymal hemorrhage. 2. 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 3. Improving inflammatory changes left orbit and face. 4. See details above. Narrative 09/20/2024 9:43 AM EDT MRI BRAIN WITH AND WITHOUT CONTRAST PERFORMED: 09/20/2024. HISTORY: 64-year-old male L sided facial droop and L UE/LE weakness COMPARISON: ??CTA head and neck 09/19/2024. MR brain 09/12/2024. MRV 09/16/2024. TECHNIQUE: ??Multiplanar, multisequence MR images of the brain were obtained prior to and following the uneventful intravenous administration of 9 mL of Gadavist. FINDINGS: Overall similar pattern of diffusion restriction involving multifocal regions of venous thrombosis with continued diffusion restriction within the occipital horns and trace hemosiderin. Similar appearance of filling defects characteristic of multifocal intracranial and left orbital venous thromboses. Persistent but smaller volume filling defects bilateral internal jugular veins. Similar pattern of enhancement involving the right tympanic cavity and mastoid air cells. Persistent but slightly improved inflammatory change involving the left orbit and preseptal soft tissues. Resolving contusion/hematoma right temporalis and right frontotemporal scalp. No acute territorial infarction or parenchymal hemorrhage. The craniocervical junction is normal. Significant reduction in persistent cortical/subcortical T2 FLAIR hyperintense signal abnormality without enhancement frontoparietal and occipital lobes. Similar size and configuration of the ventricular system. Flow related signal loss within the major intracranial vasculature is preserved. Dural venous sinuses remain patent. ??The basilar cisterns are normal. ?? Right orbit and globe unremarkable. Near complete opacification of the sphenoid sinuses with mild mucosal thickening of the remaining paranasal sinuses. Diffuse mastoid effusions with fluid in the tympanic cavities. Procedure Note Lance Holloway MD - 09/20/2024 MRI BRAIN WITH AND WITHOUT CONTRAST PERFORMED: 09/20/2024. HISTORY: 64-year-old male L sided facial droop and L UE/LE weakness COMPARISON: CTA head and neck 09/19/2024. MR brain 09/12/2024. MRV 09/16/2024. TECHNIQUE: Multiplanar, multisequence MR images of the brain were obtained prior to and following the uneventful intravenous administration of 9 mL of Gadavist. FINDINGS: Overall similar pattern of diffusion restriction involving multifocal regions of venous thrombosis with continued diffusion restriction within the occipital horns and trace hemosiderin. Similar appearance of filling defects characteristic of multifocal intracranial and left orbital venous thromboses. Persistent but smaller volume filling defects bilateral internal jugular veins. Similar pattern of enhancement involving the right tympanic cavity and mastoid air cells. Persistent but slightly improved inflammatory change involving the left orbit and preseptal soft tissues. Resolving contusion/hematoma right temporalis and right frontotemporal scalp. No acute territorial infarction or parenchymal hemorrhage. The craniocervical junction is normal. Significant reduction in persistent cortical/subcortical T2 FLAIR hyperintense signal abnormality without enhancement frontoparietal and occipital lobes. Similar size and configuration of the ventricular system. Flow related signal loss within the major intracranial vasculature is preserved. Dural venous sinuses remain patent. The basilar cisterns are normal. Right orbit and globe unremarkable. Near complete opacification of the sphenoid sinuses with mild mucosal thickening of the remaining paranasal sinuses. Diffuse mastoid effusions with fluid in the tympanic cavities. IMPRESSION: 1. No acute territorial infarction or parenchymal hemorrhage. 2. 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 3. Improving inflammatory changes left orbit and face. 4. See details above. Britton Rodriguez PA-C IMG MRI ORDERABLES F inal Result * CTA Head and Neck W/O and With IV Contrast (09/19/2024 1:46 PM EDT) Only the most recent of2 resultswithin the time period is included. Anatomical Region Laterality Modality CTA Head and Neck Computed Tomog nick 09/19/2024 1:19 PM EDT Impressions 09/19/2024 2:48 PM EDT 1. ??No intracranial hemorrhage or large acute infarction. 2. ??No significant stenosis in the major arteries of the neck. 3. ??No large vessel occlusion or significant stenosis within the intracranial circulation. 4. ??Filling defects in the bilateral internal jugular veins, as seen on the prior brain MRV, appear persistent but are poorly assessed on this exam due to contrast bolus timing. 5. ??Similar soft tissue inflammatory changes about the left orbit. 6. ??Decreased ground glass opacities in the bilateral lung apices, favored to reflect resolving infectious/inflammatory process. Interpreted by: ??Jason Lundberg DO Shank Scourer Attending addendum: There is moderate atherosclerotic plaque at the origins of each internal carotid artery there is no evidence of a hemodynamically significant stenosis or carotid dissection. There is a origin of the left posterior cerebral artery. There is near complete opacification of the sphenoid sinuses with air-fluid levels. The right mastoid air cells and middle ear cavity are completely opacified. There is a moderate left mastoid effusion. I personally reviewed the images and the resident's preliminary report and made the MINOR addendum above ([email or web address]). Narrative 09/19/2024 2:48 PM EDT EXAMINATION: CT HEAD NECK ANGIOGRAPHY WITHOUT THEN WITH IV CONTRAST CLINICAL INFORMATION: Reason for Exam:; L sided facial droop; What is the patient's sedation requirement?; No Sedation COMPARISON: Brain MRV 09/16/2024. MR brain and CTA head and neck 09/12/2024. TECHNIQUE: Test bolus series followed by intravenous administration 40 mL of Omnipaque 350. Helical imaging was performed in the axial plane from the mediastinum to the skull vertex. The degree of stenosis is based off NASCET criteria. The data was processed at the dairy technologist workstation for generation of MIP images. Three-dimensional volume rendered reformatted images were also generated at an offline 3-D workstation. This CT examination was performed using dose optimization techniques as appropriate, variously including the following: * ??Automated exposure control * ??Adjustment of mA and/or kV according to patient size (this includes techniques or standardized protocols for targeted exams where dose is matched to indication/reason for exam; i.e. extremities or head) * ??Use of iterative reconstruction technique DLP: 2231.31 mGy-cm FINDINGS: CT Head: There is no evidence of acute intracranial hemorrhage, territorial infarction, or mass lesion. 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 No abnormal enhancement. The ventricles are normal in size and configuration without evidence of hydrocephalus. ??The mastoid air cells and visualized portions of the paranasal sinuses are well aerated. There is persistent but decreased stranding of the intra and extraconal compartments of the left orbit. Similar asymmetric thickening of the extraocular muscles on the left in comparison to the right. Persistent enlargement of the left superior thalamic vein. CTA Neck: There is a three-vessel, left-sided aortic arch. Moderate calcific and fibrofatty atheromatous disease of the aortic arch and great vessel origins, most prominently at the left subclavian, without flow-limiting stenosis. The bilateral common carotid arteries demonstrate moderate atheromatous changes most prominently at the bulbs without flow-limiting stenosis. The bilateral internal carotid arteries appear normal without significant stenosis. The vertebral artery origins and cervical segments appear normal without significant stenosis. Poorly visualized filling defects in the bilateral jugular veins, better discerned on recently performed brain MRV. CTA Head: No intracranial aneurysm is seen. The intracranial internal carotid arteries demonstrate non flow-limiting calcific atherosclerotic disease. The anterior cerebral arteries, anterior communicating artery, and middle cerebral arteries appear normal. The intradural vertebral arteries and basilar artery appear normal. The right posterior commuting artery is hypoplastic versus congenitally absent. Non-vascular findings: Scattered groundglass opacities are decreased from the prior exam. Few pulmonary blebs throughout both lungs. The cervical spine demonstrates multilevel degenerative changes. No mass or fluid collection is identified within the neck. The thyroid gland is unremarkable. Procedure Note Jose Silva MD - 09/19/2024 EXAMINATION: CT HEAD NECK ANGIOGRAPHY WITHOUT THEN WITH IV CONTRAST CLINICAL INFORMATION: Reason for Exam:; L sided facial droop; What is the patient's sedation requirement?; No Sedation COMPARISON: Brain MRV 09/16/2024. MR brain and CTA head and neck 09/12/2024. TECHNIQUE: Test bolus series followed by intravenous administration 40 mL of Omnipaque 350. Helical imaging was performed in the axial plane from the mediastinum to the skull vertex. The degree of stenosis is based off NASCET criteria. The data was processed at the dairy technologist workstation for generation of MIP images. Three-dimensional volume rendered reformatted images were also generated at an offline 3-D workstation. This CT examination was performed using dose optimization techniques as appropriate, variously including the following: * Automated exposure control * Adjustment of mA and/or kV according to patient size (this includes techniques or standardized protocols for targeted exams where dose is matched to indication/reason for exam; i.e. extremities or head) * Use of iterative reconstruction technique DLP: 2231.31 mGy-cm FINDINGS: CT Head: There is no evidence of acute intracranial hemorrhage, territorial infarction, or mass lesion. 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 No abnormal enhancement. The ventricles are normal in size and configuration without evidence of hydrocephalus. The mastoid air cells and visualized portions of the paranasal sinuses are well aerated. There is persistent but decreased stranding of the intra and extraconal compartments of the left orbit. Similar asymmetric thickening of the extraocular muscles on the left in comparison to the right. Persistent enlargement of the left superior thalamic vein. CTA Neck: There is a three-vessel, left-sided aortic arch. Moderate calcific and fibrofatty atheromatous disease of the aortic arch and great vessel origins, most prominently at the left subclavian, without flow-limiting stenosis. The bilateral common carotid arteries demonstrate moderate atheromatous changes most prominently at the bulbs without flow-limiting stenosis. The bilateral internal carotid arteries appear normal without significant stenosis. The vertebral artery origins and cervical segments appear normal without significant stenosis. Poorly visualized filling defects in the bilateral jugular veins, better discerned on recently performed brain MRV. CTA Head: No intracranial aneurysm is seen. The intracranial internal carotid arteries demonstrate non flow-limiting calcific atherosclerotic disease. The anterior cerebral arteries, anterior communicating artery, and middle cerebral arteries appear normal. The intradural vertebral arteries and basilar artery appear normal. The right posterior commuting artery is hypoplastic versus congenitally absent. Non-vascular findings: Scattered groundglass opacities are decreased from the prior exam. Few pulmonary blebs throughout both lungs. The cervical spine demonstrates multilevel degenerative changes. No mass or fluid collection is identified within the neck. The thyroid gland is unremarkable. IMPRESSION: 1. No intracranial hemorrhage or large acute infarction. 2. No significant stenosis in the major arteries of the neck. 3. No large vessel occlusion or significant stenosis within the intracranial circulation. 4. Filling defects in the bilateral internal jugular veins, as seen on the prior brain MRV, appear persistent but are poorly assessed on this exam due to contrast bolus timing. 5. Similar soft tissue inflammatory changes about the left orbit. 6. Decreased ground glass opacities in the bilateral lung apices, favored to reflect resolving infectious/inflammatory process. Interpreted by: Jason Lundberg DO Shank Scourer Attending addendum: There is moderate atherosclerotic plaque at the origins of each internal carotid artery there is no evidence of a hemodynamically significant stenosis or carotid dissection. There is a origin of the left posterior cerebral artery. There is near complete opacification of the sphenoid sinuses with air-fluid levels. The right mastoid air cells and middle ear cavity are completely opacified. There is a moderate left mastoid effusion. I personally reviewed the images and the resident's preliminary report and made the MINOR addendum above (RADPAL2). Britton Rodriguez PA-C IMG CT ORDERABLES Fi nal Result * (ABNORMAL) Blood Gas with Cooximetry, Arterial (09/18/2024 11:13 AM EDT) Only the most recent of2 resultswithin the time period is included. Respiratory Info VENT 40% 09/19/19 11:14 AM [facility] pH, Arterial 7.50(H) 7.35 - 7.45 09/18/2024 11:40 AM [facility] pCO2, Arterial 30(L) 32 - 45 mmHG 09/18/2024 11:40 AM [facility] pO2, Arterial 107(H) 75 - 95 mmHG 09/18/2024 11:40 AM [facility] CO2, Total 24 22 - 28 mmol/L 09/18/2024 11:40 AM [facility] P/F Ratio 268 09/18/2024 11:40 AM [facility] Comment:P/F < 300 or < 200: question ALI or ARDS. Base Excess 0.2 mmol/L 09/18/2024 11:40 AM [facility] Comment:Reference Range: Neg ative 2 to Positive 3 Hemogloblin, Total 8.0(L) 13.0 - 17.7 g/dL 09/18/2024 11:40 AM [facility] O2 Saturation, Arterial 98.5(H) 94 - 97 % 09/18/2024 11:40 AM [facility] Carboxyhemoglobin 1.4 0.0 - 2.0 % 09/18/2024 11:40 AM [facility] Methemoglobin 0.8 0.4 - 1.5 % 09/18/2024 11:40 AM EDT [facility] O2 Content, Arterial 11.0(L) 17.6 - 24.3 mL/dL 09/18/2024 11:40 AM EDT [facility] Blood Blood specimen / Unknown 09/18/2024 11:13 AM EDT 09/18/2024 11:26 AM EDT us Daiana Guzman PA-C LAB BLOOD ORDERABLES Final R esult Performing Organization Address City/[facility] [place] [address], [place] [address] * (ABNORMAL) ALBUMIN (09/17/2024 3:11 PM EDT) [facility] Signature Albumin 2.3(L) 3.4 - 4.8 g/dL 09/17/2024 5:35 PM EDT [facility] 09/17/2024 3:11 PM EDT 09/17/2024 3:48 PM EDT us Mo Dickens MD LAB BLOOD ORDERABLES Final Resul t Performing Organization Address [facility] [place] [address], [place] [address] * EEG 24 HOUR WITH VIDEO (09/17/2024 6:43 AM EDT) Narrative [facility] - 09/17/2024 6:43 AM EDT Kira Love MD ? 09/20/2024 ??2:48 PM ADULT INPATIENT CONTINUOUS VIDEO-EEG MONITORING (LTM) REPORT Facility: ? [facility] Patient and : Mack Canas 1960 Date of Procedure: 09/17/2024 Admission Attending: Danny Barr MD Recording begun at 08:35 hrs on 09/16/2024 and is ongoing continuously unless otherwise noted. CLINICAL INFORMATION: The patient is a 64 y.o. male undergoing continuous EEG to evaluate concern for seizures. SEIZURE MEDICATIONS: ??ketamine RECORDING CONDITIONS: ??Continuous VEEG monitoring was performed. Electrodes were applied according to the International 10-20 System. Data were obtained, stored, and interpreted according to ACNS guidelines (J Clin Neurophysiol 2006;23(2):85-183) utilizing referential montage recording, with reformatting to longitudinal, transverse bipolar, and referential montages as necessary for interpretation, along with digital/automated EEG analysis of Jefry and Event detections. Patient tolerated procedure without issue. DESCRIPTION OF DAILY EEG AND EVENTS: ?? Monitoring Day 1: 09/16/2024 ?? Posterior Activity: No posterior dominant rhythm. Background Activity: The background was symmetric and continuous consisting of predominantly normal voltage, theta and delta frequencies; anterior-posterior organization was absent. Reactivity/Variability/Sleep: Reactivity and state changes were present; no clear stage II architecture. Focal Slowing: None. Interictal Epileptiform Abnormalities: None. Seizures/Events: None. Other: N/A. ECG: No notable ECG abnormalities were apparent. Monitoring Day 2: 09/17/2024 ?? Posterior Activity: No posterior dominant rhythm. Background Activity: The background was symmetric and continuous consisting of predominantly normal voltage, theta and delta frequencies; anterior-posterior organization was absent. Reactivity/Variability/Sleep: Reactivity and state changes were present; no clear stage II architecture. Focal Slowing: None. Interictal Epileptiform Abnormalities: None. Seizures/Events: None. Other: N/A. ECG: No notable ECG abnormalities were apparent. DAILY IMPRESSIONS Monitoring Day 1: 09/16/2024 - Nonspecific, moderate to severe encephalopathy. Monitoring Day 2: 09/17/2024 - Nonspecific, moderate to severe encephalopathy. E.E.G. INTERPRETATION: Abnormal 1 day continuous Video-EEG Monitoring Study due to: Non-epileptic events: None. Epileptic events: None. Interictal abnormalities: Continuous generalized, polymorphic delta/theta slowing. CLINICAL CORRELATION: This EEG was suggestive of a nonspecific, moderate to severe encephalopathy. Overall recording Period: 08:35 hrs on 09/16/2024 through 09:55 hrs on 09/17/2024. ?? ATTESTATION: This EEG was continuously available for review and interpretation. ??EEG was reviewed and the note updated at least daily for the duration of the recording period, and results provided to the neurology team providing direct patient care. FOR EEG LAB USE: Abnormal EEG: INTERICTAL ABNORMAL: Encephalopathy severe (!qxz&v8); ? Focal Slowing None (!qxz&v12); ? Epileptiform Interictals: None (!qxz&v12) ??No events (!qxz&v21, !qxz&v34, !qxz&v47, !qxz&v49) Kira Sena MD. [facility] us Shira Bonilla PA-C NEUROLOGY ORDERABLES Edited Re sult - Final [facility] [address] [place] [address], * EEG - Long-term monitoring (09/16/2024 6:55 PM EDT) Narrative [facility] - 09/16/2024 6:55 PM EDT Kira Love MD ? 09/16/2024 ??7:07 PM ADULT INPATIENT CONTINUOUS VIDEO-EEG MONITORING (LTM) REPORT Facility: ? [facility] Patient and : Mack Canas 1960 Date of Procedure: 09/16/2024 Admission Attending: Danny Barr MD Recording begun at 08:35 hrs on 09/16/2024 and is ongoing continuously unless otherwise noted. CLINICAL INFORMATION: The patient is a 64 y.o. male undergoing continuous EEG to evaluate concern for seizures. SEIZURE MEDICATIONS: ??ketamine RECORDING CONDITIONS: ??Continuous VEEG monitoring was performed. Electrodes were applied according to the International 10-20 System. Data were obtained, stored, and interpreted according to ACNS guidelines (J Clin Neurophysiol 2006;23(2):85-183) utilizing referential montage recording, with reformatting to longitudinal, transverse bipolar, and referential montages as necessary for interpretation, along with digital/automated EEG analysis of Jefry and Event detections. Patient tolerated procedure without issue. DESCRIPTION OF DAILY EEG AND EVENTS: ?? Monitoring Day 1: 09/16/2024 ?? Posterior Activity: No posterior dominant rhythm. Background Activity: The background was symmetric and continuous consisting of predominantly normal voltage, theta and delta frequencies; anterior-posterior organization was absent. Reactivity/Variability/Sleep: Reactivity and state changes were present; no clear stage II architecture. Focal Slowing: None. Interictal Epileptiform Abnormalities: None. Seizures/Events: None. Other: N/A. ECG: No notable ECG abnormalities were apparent. DAILY IMPRESSIONS Monitoring Day 1: 09/16/2024 - Nonspecific, moderate to severe encephalopathy. REPORT LAST UPDATED: 09/16/2024 6:55 PM. THIS REPORT IS UPDATED AND SIGNED DAILY WHILE THE EEG RECORDING IS ONGOING. THE REPORT IS NOT CONSIDERED FINAL UNTIL THE EEG HAS STOPPED RECORDING. ??AN OVERALL IMPRESSION AND CLINICAL CORRELATION WILL THEN BE ADDED TO THE END OF THIS REPORT. FOR QUERIES CONTACT THE NEUROLOGY CARE TEAM. Kira Sena MD. [facility] us Shira Bonilla PA-C NEUROLOGY ORDERABLES Edited Re sult - Final [facility] [address] [place] [address], * (ABNORMAL) Complete Blood Count, with Differential (09/16/2024 5:07 PM EDT) Only the most recent of3 resultswithin the time period is included. White Blood Cell Count Test not performed due to insufficient quantity of specimen. 4.0 - 11.0 Thou/uL 09/16/2024 6:13 PM [facility] Platelet Count Test not performed due to insufficient quantity of specimen. 150 - 450 Thou/uL 09/16/2024 6:13 PM [facility] Hemoglobin Test not performed due to insufficient quantity of specimen. 13.0 - 17.7 g/dL 09/16/2024 6:13 PM [facility] Hematocrit Test not performed due to insufficient quantity of specimen. 39.0 - 54.0 % 09/16/2024 6:13 PM [facility] Red Blood Cell Count Test not performed due to insufficient quantity of specimen. 4.50 - 6.20 Mil/uL 09/16/2024 6:13 PM [facility] MCV Test not performed due to insufficient quantity of specimen. 80 - 100 fL 09/16/2024 6:13 PM [facility] MCH Test not performed due to insufficient quantity of specimen. 27.0 - 31.0 pg 09/16/2024 6:13 PM [facility] MCHC Test not performed due to insufficient quantity of specimen. 30.0 - 36.0 g/dL 09/16/2024 6:13 PM [facility] RDW Test not performed due to insufficient quantity of specimen. 11.5 - 14.5 % 09/16/2024 6:13 PM [facility] MPV Test not performed due to insufficient quantity of specimen. 7.5 - 12.5 fL 09/16/2024 6:13 PM [facility] nRBC Test not performed due to insufficient quantity of specimen. 0.0 - 0.1 /100 WBC 09/16/2024 6:13 PM [facility] nRBC, Absolute Test not performed due to insufficient quantity of specimen. 0.00 - 0.02 Thou/uL 09/16/2024 6:13 PM [facility] Comment Test not performed due to insufficient quantity of specimen.(A) No comment 09/16/2024 6:13 PM [facility] Immature Platelet Fraction Test not performed due to insufficient quantity of specimen. 1.2 - 8.6 % 09/16/2024 6:13 PM [facility] Blood Blood specimen / Unknown 09/16/2024 5:07 PM EDT 09/16/2024 5:26 PM EDT Daiana Guzman PA-C LAB BLOOD ORDERABLES Final R esult [address] [address], [address] [address] * (ABNORMAL) Partial Thromboplastin Time (PTT) (09/16/2024 5:07 PM EDT) Only the most recent of3 resultswithin the time period is included. Anticoagulant IV HEPARIN, UNFRACTIONATED 09/16/2024 5:07 PM EDT [facility] Partial Thromboplastin Time (PTT) 24(L) 25 - 36 seconds 09/16/2024 6:13 PM EDT [facility] Blood Blood specimen / Unknown 09/16/2024 5:07 PM EDT 09/16/2024 5:26 PM EDT Daiana Guzman PA-C LAB BLOOD ORDERABLES Final R esult Performing Organization Address City/[facility]/ZIP Co de Phone Number [address] [address], [address] [address] * (ABNORMAL) Protime-INR (09/16/2024 5:07 PM EDT) Only the most recent of3 resultswithin the time period is included. Anticoagulant IV HEPARIN, UNFRACTIONATED 09/16/2024 5:07 PM EDT [facility] Prothrombin Time (PT) 14.1(H) 10.0 - 13.5 seconds 09/16/2024 6:13 PM EDT [facility] INR 1.2 09/16/2024 6:13 PM EDT [facility] Comment:INR Therapeutic Rang es: Standard dose anticoagulant 2.0 to 3.0, High dose anticoagulant 2.5-3.5. Blood Blood specimen / Unknown 09/16/2024 5:07 PM EDT 09/16/2024 5:26 PM EDT Daiana Guzman PA-C LAB BLOOD ORDERABLES Final R esult Performing Organization Address City/[facility]/ZIP Co de Phone Number [address] [address], [address] [address] * Blood Culture (09/16/2024 4:16 PM EDT) Only the most recent of4 resultswithin the time period is included. Culture Sterile after 5 days 09/21/2024 9:59 AM EDT [facility] Blood Blood specimen / Unknown 09/16/2024 4:16 PM EDT 09/16/2024 6:01 PM EDT Comment:Blood us Daiana Guzman PA-C LAB BLOOD ORDERABLES Final R esult [facility] [address] [place] [address], [place] * MRV Head w w/o contrast (09/16/2024 12:49 PM EDT) Anatomical Region Laterality Modality MRA Head and Neck Magnetic Reson ance 09/16/2024 11:5 1 AM EDT Impressions 09/16/2024 2:38 PM EDT Redemonstration of nonocclusive filling defects within the proximal internal jugular veins. No other partial or complete occlusion. Narrative 09/16/2024 2:38 PM EDT MR ANGIOGRAPHY HEAD WITHOUT AND WITH CONTRAST PERFORMED: 09/16/2024. HISTORY: Venous clots in bilateral jugulars and ongoing infection COMPARISON: ??MR brain with contrast 09/12/2024. Technique: 2-D [id number] magnetic resonance angiographic images of the intracranial venous system were obtained and presented as maximum intensity projection images and rotating format. 10 mm of intravenous Gadavist was utilized. FINDINGS: Redemonstration of filling defects and loss of flow-related enhancement within the proximal bilateral internal jugular veins. Normal flow related enhancement is visualized within the superior sagittal sinus, inferior sagittal sinus, straight sinus, transverse and sigmoid sinuses and jugular bulbs. Normal flow related enhancement is also visualized within the cortical veins, internal cerebral veins, and vein of Nas. The superior sagittal sinus predominately drains into a dominant right transverse sinus. The right sigmoid sinus and internal jugular vein are dominant. The deep system predominately drains into the left transverse sinus. Procedure Note Lance Holloway MD - 09/16/2024 MR ANGIOGRAPHY HEAD WITHOUT AND WITH CONTRAST PERFORMED: 09/16/2024. HISTORY: Venous clots in bilateral jugulars and ongoing infection COMPARISON: MR brain with contrast 09/12/2024. Technique: 2-D [id number] magnetic resonance angiographic images of the intracranial venous system were obtained and presented as maximum intensity projection images and rotating format. 10 mm of intravenous Gadavist was utilized. FINDINGS: Redemonstration of filling defects and loss of flow-related enhancement within the proximal bilateral internal jugular veins. Normal flow related enhancement is visualized within the superior sagittal sinus, inferior sagittal sinus, straight sinus, transverse and sigmoid sinuses and jugular bulbs. Normal flow related enhancement is also visualized within the cortical veins, internal cerebral veins, and vein of Nas. The superior sagittal sinus predominately drains into a dominant right transverse sinus. The right sigmoid sinus and internal jugular vein are dominant. The deep system predominately drains into the left transverse sinus. IMPRESSION: Redemonstration of nonocclusive filling defects within the proximal internal jugular veins. No other partial or complete occlusion. us Shira Bonilla PA-C IMMoe MRI ORDERABLES Final Resul t * EEG AWAKE OR DROWSY (2024 2:41 PM EDT) Narrative [facility] - 2024 10:32 AM EDT Milind Reyes MD ? 2024 10:36 AM INPATIENT ADULT ??ELECTROENCEPHALOGRAM (EEG) REPORT ?? Facility: ? [facility] Patient and : Mack Canas 1960 Date of Procedure: 2024 Admission Attending: Danny Barr MD CLINICAL INFORMATION: ??EEG is requested in a 64 y.o. male to evaluate events of unclear etiology.. SEIZURE MEDICATIONS: primidone RECORDING CONDITIONS: ??This is a intubated and sedated routine EEG performed at the inpatient bedside. The standard International 10-20 System of electrode placement was utilized, with a minimum of 20 electrodes and additional channels monitored for eye movement. One channel electrocardiogram was monitored. Data were obtained, stored, and interpreted according to ACNS guidelines (J Clin Neurophysiol 2006;23(2):85-183) utilizing referential montage recording, with reformatting to longitudinal, transverse bipolar, and referential montages as necessary for interpretation. The patient tolerated entire procedure without difficulty. Photic stimulation and hyperventilation were utilized as activation procedures unless otherwise specified below. E.E.G. DESCRIPTION: Posterior Activity: No posterior dominant rhythm. Background Activity: The background was symmetric and continuous consisting of predominantly medium voltage (50-149 uV), ??delta frequencies; anterior-posterior organization was absent. Sleep Activity: Sleep was not captured. Activation procedures: Hyperventilation: was not performed. Photic stimulation: produced no clear response. Reactivity: Reactivity was present; no spontaneous state changes appreciated. Focal and/or Rhythmic Slowing: None. Interictal Epileptiform Abnormalities: None. Clinical Events/Seizures: Episodes of hand movements/right hand tremor/left leg twitching were reported by tech but video was not available to review. ECG: No notable ECG abnormalities were apparent. Other: N/A. E.E.G. INTERPRETATION: Abnormal natural sleep inpatient bedside routine EEG for age during ??an indeterminate partially responsive state due to: 1) Background abnormalities including Marked diffuse slowing. ??Reported episodes of right hand tremor, twitching of extremities. ??Video was not available to review. ??No EEG change from baseline except movement and muscle artifact. ?? CLINICAL CORRELATION: ??This EEG is suggestive of a nonspecific, severe encephalopathy. ??Nonepileptic episodes as described above however interpretation was limited due to lack of video review. [id number] Brief ictal rhythmic discharges (BIRDs) ??NO 0 Lateralized periodic discharges (LPDs) OR lateralized rhythmic delta activity (LRDA) OR bilateral independent periodic discharges ??NO 0 Prior seizure ??NO 0 Sporadic epileptiform discharges ??NO 0 Frequency greater than 2 Hz for any periodic or rhythmic pattern ?? NO 0 Presence of PLUS features (superimposed, rhythmic, sharp, or faster activity) NO 0 [id number] TOTAL SCORE: ??0 ? (5% SZ [!2H31P$2B&0]) Milind Reyes MD [facility] FOR EEG LAB USE: Abnormal Non-epileptiform :qz!02 No interictals :qz!03; No events :qz!08; Complexity ratin :qz!14 us Shira Bonilla PA-C NEUROLOGY ORDERABLES Final Res ult [facility] [address] [place] [address], [place] * (ABNORMAL) Blood Gas with Cooximetry, Venous (2024 11:36 AM EDT) Only the most recent of3 resultswithin the time period is included. Respiratory Info VENT 40% 09/16/19 11:36 AM EDT [facility] Venous Blood PH 7.43 7.33 - 7.43 2024 11:54 AM EDT [facility] Venous pCO2 50 35 - 50 mmHG 2024 11:54 AM EDT [facility] Venous pO2 34 0 - 60 mmHG 2024 11:54 AM T [facility] Venous Total CO2 34(H) 23 - 29 mmol/L 2024 11:54 AM [facility] Base Excess 7.6 mmol/L 2024 11:54 AM T [facility] Comment:Reference Range: Neg ative 2 to Positive 3 Hemogloblin, Total 5.3(L) 13.0 - 17.7 g/dL 2024 11:54 AM EDT [facility] O2 Saturation, Venous 62.9 % 11:54 AM [facility] Carboxyhemoglobin 1.3 0.0 - 2.0 % 2024 11:54 AM [facility] Methemoglobin 0.8 0.4 - 1.5 % 2024 11:54 AM T [facility] Venous O2 Content 3.3(L) 7.2 - 17.2 mL/dL 2024 11:54 AM T [facility] Blood Blood specimen / Unknown 2024 11:36 AM EDT 2024 11:50 AM EDT Ai Cole PA-C LAB BLOOD ORDERABLES F inal Result [address] [address], [address] [address] * (ABNORMAL) proBNP, N-terminal (2024 12:26 AM EDT) Only the most recent of4 resultswithin the time period is included. proBNP, N-terminal 486(H) <125 pg/mL 2024 1:09 AM EDT [facility] Blood Blood specimen / Unknown 2024 12:26 AM EDT 2024 12:40 AM EDT Shira Bonilla PA-C LAB BLOOD ORDERABLES Final Res ult [address] [address], [address] [address] * (ABNORMAL) HEPATIC FUNCTION PANEL (2024 12:26 AM EDT) Only the most recent of5 resultswithin the time period is included. Alkaline Phosphatase 58 45 - 128 U/L 2024 1:09 AM [facility] Aspartate Aminotrans (AST) 41 10 - 55 U/L 2024 1:09 AM [facility] Alanine Aminotrans (ALT) 83(H) 10 - 55 U/L 2024 1:09 AM [facility] Bilirubin, Total 1.8(H) 0.2 - 1.0 mg/dL 2024 1:09 AM T [facility] Protein, Total 7.1 6.3 - 8.3 g/dL 2024 1:09 AM [facility] Albumin 2.2(L) 3.4 - 4.8 g/dL 2024 1:09 AM [facility] Bilirubin, Direct 1.2(H) 0 - 0.2 mg/dL 2024 1:09 AM [facility] Globulin 4.9(H) 1.5 - 3.9 g/dL 2024 1:09 AM [facility] Albumin/Globulin Ratio 0.4(L) 1.0 - 3.0 Ratio 2024 1:09 AM EDT [facility] Blood Blood specimen / Unknown 2024 12:26 AM EDT 2024 12:40 AM EDT Shira Bonilla PA-C LAB BLOOD ORDERABLES Final Res ult [address] [address], [address] [address] * VAS VENOUS DUPLEX ARM (DVT)-BILATERAL (09/12/2024 7:26 AM EDT) Anatomical Region Laterality Modality Ultrasound 09/12/2024 9:00 AM EDT Narrative 09/12/2024 9:42 AM EDT Table formatting from the original result was not included. ?? Department: [facility] Patient: [id number] (MACK CANAS) ?? Patient Location: ..[id number] CPT Code: 91836 ICD-9: ?? Referring Physician: ONOFRE BARNETT Impression Bilaterally, the duplex ultrasound of the upper extremities demonstrates normal Doppler flow with no thrombus seen on maldonado scale/color flow image. Findings are not consistent with the presence of deep vein thrombosis bilaterally. ?? Indications Swelling of Limb [M79.89]. 63 year old male admitted with acute metabolic encephalopathy, cavernous sinus thrombosis, respiratory failure Findings: ?? Right ??Impression ??Spont ??Phasic ??Compress Internal Jugular Vein ??Normal ??Yes ??Yes ??Complete Innominate Vein ??Normal ??Yes ??Yes ?? Proximal Subclavian Vein ??Normal ??Yes ??Yes ?? Distal Subclavian Vein ??Normal ??Yes ??Yes ??Complete Axillary ??Normal ??Yes ??Yes ??Complete Brachial ??Normal ?Complete Cephalic ??Normal ?Complete Basilic ??Normal ?Complete Left ??Impression ??Spont ??Phasic ??Compress Internal Jugular Vein ??Normal ??Yes ??Yes ??Complete Innominate Vein ??Normal ??Yes ??Yes ?? Proximal Subclavian Vein ??Normal ??Yes ??Yes ?? Distal Subclavian Vein ??Normal ??Yes ??Yes ??Complete Axillary ??Normal ??Yes ??Yes ?? Radial ??Patent ?Complete Ulnar ??Patent ?Complete Cephalic ??Normal ?Complete Basilic ??Normal ?Complete ?? Electronically Signed by: Mckenna Benavidez MD MBA RVT on 2024-09-12 09:42:42 AM End of Report Procedure Note Mckenna Benavidez MD - 09/12/2024 Department: [facility] Patient: [id number] (MACK CANAS) Patient Location: ..[address] CPT Code: 66741 ICD-9: Referring Physician: ONOFRE BARNETT Impression Bilaterally, the duplex ultrasound of the upper extremities demonstratesnormal Doppler flow with no thrombus seen on maldonado scale/color flow image.Findings are not consistent with the presence of deep vein thrombosisbilaterally. Indications Swelling of Limb [M79.89]. 63 year old male admitted with acute metabolic encephalopathy, cavernoussinus thrombosis, respiratory failure Findings: Right Impression Spont Phasic Compress Internal Jugular Vein Normal Yes Yes Complete Innominate Vein Normal Yes Yes Proximal Subclavian Vein Normal Yes Yes Distal Subclavian Vein Normal Yes Yes Complete Axillary Normal Yes Yes Complete Brachial Normal Complete Cephalic Normal Complete Basilic Normal Complete Left Impression Spont Phasic Compress Internal Jugular Vein Normal Yes Yes Complete Innominate Vein Normal Yes Yes Proximal Subclavian Vein Normal Yes Yes Distal Subclavian Vein Normal Yes Yes Complete Axillary Normal Yes Yes Radial Patent Complete Ulnar Patent Complete Cephalic Normal Complete Basilic Normal Complete Electronically Signed by: Mckenna Benavidez MD MBA RVT on [id number] AM End of Report us Onofre VELASCO-Ryan VASCULAR LAB ORDERABLES Fin al Result * (ABNORMAL) Reticulocyte Count (09/12/2024 12:19 AM EDT) Only the most recent of2 resultswithin the time period is included. Reticulocyte Count 0.4(L) 0.7 - 2.0 % 09/12/2024 1:21 AM EDT [facility] Reticulocyte, Absolute 9.5(L) 30.0 - 100.0 Thou/uL 09/12/2024 1:21 AM EDT [facility] Retic Hemoglobin Content 29.70 28 - 35 pg 09/12/2024 1:21 AM EDT [facility] Immature Reticulocyte Fraction 23.1(H) 2.3 - 15.9 % 09/12/2024 1:21 AM EDT [facility] Blood Blood specimen / Unknown 09/12/2024 12:19 AM EDT 09/12/2024 1:07 AM EDT Marie VELASCO-Ryan LAB BLOOD ORDERABLES Final Result Performing Organization Address City/[facility]/[place] [address], [place] [address] * (ABNORMAL) LACTATE DEHYDROGENASE (LDH) (09/12/2024 12:19 AM EDT) Only the most recent of2 resultswithin the time period is included. Pathologist [facility] Lactate Dehydrogenase (LDH) 550(H) 120 - 260 U/L 09/12/2024 1:52 AM EDT [facility] Blood Blood specimen / Unknown 09/12/2024 12:19 AM EDT 09/12/2024 1:07 AM EDT Marie VELASCO-Ryan LAB BLOOD ORDERABLES Final Result Performing Organization Address City/[facility]/[place] [address], [place] [address] * Haptoglobin (09/12/2024 12:19 AM EDT) Only the most recent of2 resultswithin the time period is included. Haptoglobin 181 30 - 200 mg/dL 09/12/2024 1:52 AM EDT [facility] Blood Blood specimen / Unknown 09/12/2024 12:19 AM EDT 09/12/2024 1:07 AM EDT Marie Alvarado PA-C LAB BLOOD ORDERABLES Final Result Performing Organization Address [facility] Co de Phone Number [address] [address], [address] [address] * Cyclic Citrullinated Peptide Antibody, IgG (09/11/2024 11:15 AM EDT) CCP IgG Antibodies <16 <20 Units 2024 12:19 AM EDT [facility], [place] Comment: (NOTE) Negative: ? <20 Weak Positive: ?20 - 39 Moderate Positive: ?40 - 59 Strong Positive: ?>59 Blood Blood specimen / Unknown 09/11/2024 11:15 AM EDT 09/11/2024 12:27 PM EDT Aimee VELASCO LAB BLOOD ORDERABLES Naina l Result Performing Organization Address City/[facility]/ZIP Co de Phone Number [email or web address], [employer] [address] [facility] [address] [address] [place], [place] , [facility], [place] [address] [facility] [address] [address] [place], [place] * (ABNORMAL) Complement C4 (09/11/2024 11:15 AM EDT) Complement C4 10(L) 15 - 53 mg/dL 09/14/2024 8:59 PM EDT [facility] Blood Blood specimen / Unknown 09/11/2024 11:15 AM EDT 09/11/2024 12:27 PM EDT Aimee M Corie VELASCO LAB BLOOD ORDERABLES Naina l Result [facility], [address] [place] [address] , [facility], [address] [place] [address] * Complement C3 (09/11/2024 11:15 AM EDT) Complement C3 85 82 - 185 mg/dL 09/14/2024 8:59 PM EDT [facility], [place] Blood Blood specimen / Unknown 09/11/2024 11:15 AM EDT 09/11/2024 12:27 PM EDT Aimee VELASCO LAB BLOOD ORDERABLES Naina l Result Performing Organization Address City/[facility]/ZIP Co de Phone Number [facility], [address] [place] [address] , [facility], [address] [place] [address] * Proteinase-3 Antibody (09/11/2024 11:15 AM EDT) Pathologist [facility] Proteinase-3 Antibody <2.0 <2 U/mL 2024 2:23 PM EDT [facility] Comment:Negative Blood Blood specimen / Unknown 09/11/2024 11:15 AM EDT 09/11/2024 12:27 PM EDT Aimee VELASCO LAB BLOOD ORDERABLES Naina l Result [facility] [address] [address], * Double Strand DNA (dsDNA) Antibody Screen, Crithidia, Reflex Titer (09/11/2024 11:15 AM EDT) Pathologist [facility] DNA (ds) Antibody Screen Negative Negative 09/14/2024 8:59 AM EDT [facility] Additional Testing REPORT 09/14/2024 8:59 AM EDT [facility], [place] Comment: (NOTE) Not indicated Blood Blood specimen / Unknown 09/11/2024 11:15 AM EDT 09/11/2024 12:27 PM EDT Aimee VELASCO LAB BLOOD ORDERABLES Naina l Result Performing Organization Address [facility] Co de Phone Number [facility], [place] [address] [facility] [address] [address] [place], [place] , [facility], [place] [address] [facility] [address] [address] [place], [place] * ANCA Screen, Reflex Titer (09/11/2024 11:15 AM EDT) Pathologist [facility] ANCA Screen Negative Negative 09/16/2024 4:32 PM EDT [facility] [place] Comment: (NOTE) ANCA screen uses indirect immunofluorescence to detect antibodies to neutrophil cytoplasmic antigens. A positive screen reflexes to titer and pattern. Patterns include cytoplasmic (c-ANCA) and perinuclear (p-ANCA) both of which are associated with vasculitis, and atypical p-ANCA which is associated with inflammatory bowel disease and other disorders. ? Blood Blood specimen / Unknown 09/11/2024 11:15 AM EDT 09/11/2024 12:27 PM EDT Aimee VELASCO LAB BLOOD ORDERABLES Naina l Result Performing Organization Address City/State/[facility] Co de Phone Number [facility] [address] [facility] [address] [address] [place], [place] , [facility], [place] [address] [facility] [address] [address] [place], [place] * Myeloperoxidase Antibody (09/11/2024 11:15 AM EDT) Pathologist [facility] Myeloperoxidase (MPO) Antibody <3.5 <3.5 U/mL 2024 2:23 PM EDT [facility] Comment:Negative Blood Blood specimen / Unknown 09/11/2024 11:15 AM EDT 09/11/2024 12:27 PM EDT us Aimee Boone Corie VELASCO LAB BLOOD ORDERABLES Naina l Result [facility] [address] [place] [address], [place] * Lupus Anticoagulant Screen w/ Reflex (09/11/2024 11:15 AM EDT) Lupus Anticoagulant Eval. REPORT 09/14/2024 7:10 AM EDT [facility] Comment: (NOTE) A Lupus Anticoagulant is not detected. Reference Range: ??Not Detected For additional information, please refer to http://[employer].Spot Influence/faq/XZD59h0 (This link is being provided for informational/ educational purposes only.) ? This interpretation is based on the following test results. PTT Lupus Anticoagulant 31 <=40 sec 09/14/2024 7:10 AM EDT [facility] dRVVT Screen 43 <=45 sec 09/14/2024 7:10 AM EDT [facility] Blood Blood specimen / Unknown 09/11/2024 11:15 AM EDT 09/11/2024 12:27 PM EDT Aimee Boone Corie VELASCO LAB BLOOD ORDERABLES Naina l Result Performing Organization Address City/[facility]/ZIP Co de Phone Number [facility], [place] [address] [facility] [address] [address] [place], [place] , [place] [facility], [place] [address] [facility] [address] [address] [place], [place] * Glomerular Basement Membrane Ab, IgG (09/11/2024 11:15 AM EDT) Pathologist [facility] Glomerular Basement Membrane Ab <1.0 <1.0 AI 09/13/2024 4:12 PM EDT [facility] Comment: (NOTE) ?Value ?? Interpretation ? <1.0 AI: No Antibody Detected ?>or=1.0 AI: Antibody Detected Blood Blood specimen / Unknown 09/11/2024 11:15 AM EDT 09/11/2024 12:27 PM EDT us Aimee VELASCO LAB BLOOD ORDERABLES Naina sutherland Result [employer], [employer] [address] [employer] [address] [address] [place], [place] , [facility], [place] [address] [employer] [address] [address] [place], [place] * ECHOCARDIOGRAM COMPREHENSIVE WITH CONTRAST (09/11/2024 7:45 AM EDT) IVS Mean (F:0.6-0.9, M:0.6-1.0) 1.2 cm IVS (F:0.6-0.9, M:0.6-1.0) 1.2 cm LVIDD Mean (F:3.8-5.2, M:4.2-5.8) 5.1 cm LVIDD (F:3.8-5.2, M:4.2-5.8) 5.1 cm LVIDS (F:2.2-3.5, M:2.5-4.0) 2.3 cm LVIDS (F:2.2-3.5, M:2.5-4.0) 2.3 cm LVOT diameter mean 2.3 cm LVOT diameter 2.3 cm PW Mean (F:0.6-0.9, M:0.6-1.0) 1.2 cm PW (F:0.6-0.9, M:0.6-1.0) 1.2 cm LV Diastolic Volume Mean 83.4 mL LV Diastolic Volume 83 mL LV Systolic Volume Mean 16.9 mL LV Systolic Volume 17 mL LVOT mn grad mean 4.2 mmHg LVOT mn grad 4.2 mmHg LVOT peak houston mean 1.3 m/s LVOT peak houston 1.3 m/s LVOT VTI MEAN 26.4 cm LVOT VTI 26.4 cm RVID d Mean 3.8 cm RVID d 3.8 cm LA volume Mean 90.1 mL LA volume 90.1 mL AV mean gradient mean 45.7 mmHg AV mean gradient 45.7 mmHg Ao peak houston mean 4.3 m/s Ao peak houston 4.3 m/s Ao VTI Mean 87.6 cm Ao VTI 87.6 cm MV Peak A-Wave Mean 145.6 cm/s MV Peak A-Wave 145.6 cm/s E wave decelartion time mean 328 ms E wave decelartion time 328 ms MV Peak E-Wave Mean 127.2 cm/s MV Peak E-Wave 127.2 cm/s MV E' Lateral Velocity Mean 7.41 cm/s MV E' Lateral Velocity 7.41 cm/s MV E' Septal Velocity Mean 5.89 cm/s MV E' Septal Velocity 5.89 cm/s MV peak gradient mean 11.6 mmHg MV peak gradient 11.6 mmHg MV mean gradient mean 4.7 mmHg MV mean gradient 5.0 mmHg MV VTI MEAN 41.5 cm MV VTI 41.5 cm Tapse Mean 1.9 cm Tapse 1.9 cm TR Peak [place] Mean 3.3 m/s Ascending aorta mean 3.9 cm Ascending aorta 3.9 cm Sinuses of Valsalva Mean 3.8 cm Sinuses of Valsalva 3.8 cm Heart Rate 77 bpm BP Systolic 163 mmHg BP Diastolic 76 mmHg Height 75.00 inches Weight 214.00 lbs LV Mass Index (F:43-95, M:49-115) 106.8 g/m2 LA Volume Index (16-34) 39.9 mL/m2 LV Diastolic Volume Index (F:29-61, M:35-75) 36.8 mL/m2 LV Systolic Volume Index (F:8-24, M:11-31) 7.5 mL/m2 E/E' ratio 17.17 AV peak gradient 74.0 mmHg LVOT stroke volume 110 mL LVOT area 4.2 cm2 E/A ratio 0.87 MV valve area by continuity eq 2.6 cm2 AV LVOT peak gradient 6.8 mmHg Dimensionless Index 0.30 SVI 48 mL/m2 AV area by cont VTI 1.3 cm2 Ascending aorta Index 1.7 cm/m2 Sinuses of Valsalva Index 1.7 cm/m2 Valve area - Index 0.6 cm2/m2 LV mass 241.2 g Stark BP EF (55-75) 80 % E/E' Average 19.4 E/E' Septal 21.6 E/E' Lateral 17.2 LVOT SI 48.54 mL/m2 LV RWT 0.47 Left Ventricular Cardiac Index 3.7 L/min/m2 Left Ventricular Cardiac Output 8.4 L/min BSA 2.26 m2 Est. RA pres 3 mmHg Anatomical Region Laterality Modality Ultrasound Narrative 09/11/2024 8:22 AM EDT ?Left ventricular systolic function is hyperdynamic. The quantitative EF by 2D Stark biplane is 80%. ?Right ventricular systolic function is normal. ?There is likely severe aortic stenosis based on gradients and velocities. The continuity derived aortic valve area is less reliable in the setting of poor spectral signal. The peak velocity is 4.3 m/s and mean gradient is 45.7 mmHg. ?There is progressive calcific mitral stenosis. There is a mean transmitral gradient of 5 mmHg at a heart rate of 81 bpm. ?There is no previous study for comparison in our system. Technical Details Definity contrast was used during the study. Overall the study quality was poor. The study was technically difficult due to patient's clinical status and body habitus. Left Ventricle The left ventricle is normal in size. Concentric remodeling of the left ventricle is present. Left ventricular systolic function is hyperdynamic. The quantitative EF by 2D Stark biplane is 80%. No wall motion abnormalities are present. Left atrial filling pressure is elevated. Right Ventricle Right ventricle was not well visualized. Right ventricular systolic function is normal. Left Atrium The left atrial cavity is mildly dilated. Right Atrium Based on IVC diameter and collapse, right atrial pressure is estimated to be normal (3 mmHg). Right atrium was not well visualized. Mitral Valve The mitral leaflets are moderately thickened and calcified. There is trace mitral regurgitation.There is progressive calcific mitral stenosis. There is a mean transmitral gradient of 5 mmHg at a heart rate of 81 bpm. Tricuspid Valve The tricuspid valve was not well visualized. The absence of sufficient tricuspid regurgitation precludes estimation of right ventricular systolic pressure. Aortic Valve The aortic valve leaflets are moderately thickened.The aortic valve leaflets are severely calcified. There is no aortic regurgitation. There is likely severe aortic stenosis based on gradients and velocities. The continuity derived aortic valve area is less reliable in the setting of poor spectral signal. The peak velocity is 4.3 m/s and mean gradient is 45.7 mmHg. Pulmonic Valve The pulmonic valve was not well visualized. Ascending Aorta The aortic root dimension is normal. The ascending aorta is mildly dilated. Pericardium There is no pericardial effusion. Prior Study There is no previous study for comparison in our system. Wall Scoring Baseline Score Index: 1.00 The left ventricular wall motion is globally hyperkinetic. Result [facility] Marie Alvarado PA-C CV ECHO ORDERABLES Final R esult * Transfuse Platelets:Transfusion Indications: Plt count less than or equal to 50K and bleeding (09/10/2024 6:39 PM EDT) Only the most recent of3 resultswithin the time period is included. Result [facility] Meghan VELASCO BLOOD TRANSFUSION ORDERA BLES Final Result * Prepare Platelets:Prepare in: Doses; Number of doses: 1; Transfusion Indications: Plt count less than or equal to 50K and bleeding (09/10/2024 2:36 PM EDT) Only the most recent of3 resultswithin the time period is included. [facility] Signature Units Ordered 1 09/10/2024 3:11 PM EDT Unit Number [id number] 09/10/2024 3:15 PM EDT [facility] Blood Component Type Pathogen Reduced apheresis platelet 09/10/2024 3:15 PM EDT [facility] Unit Division 00 09/10/2024 3:15 PM EDT [facility] Unit Status ISSUED,FINAL 09/11/2024 12:12 AM EDT [facility] Transfusion Status OK TO TRANSFUSE 09/10/2024 3:15 PM EDT [facility] 09/10/2024 2:36 PM EDT 09/10/2024 3:15 PM EDT Meghan VELASCO BLOOD BANK PRODUCT ORDER CHASE Final Result HOSPITAL LAB See Below [address] [address] * (ABNORMAL) Triglycerides (09/10/2024 12:09 PM EDT) Only the most recent of2 resultswithin the time period is included. Triglycerides 531(H) <150 mg/dL 09/10/2024 1:04 PM EDT [facility] Blood Blood specimen / Unknown 09/10/2024 12:09 PM EDT 09/10/2024 12:33 PM EDT Meghan VELASCO LAB BLOOD ORDERABLES Fin al Result Performing Organization Address [facility] Co de Phone Number [address] [address], [address] [address] * (ABNORMAL) Hemoglobin and Hematocrit (09/09/2024 5:49 AM EDT) [facility] Hematocrit 23.0(L) 39.0 - 54.0 % 09/09/2024 6:25 AM EDT [facility] Hemoglobin 7.8(L) 13.0 - 17.7 g/dL 09/09/2024 6:25 AM EDT [facility] Blood Blood specimen / Unknown 09/09/2024 5:49 AM EDT 09/09/2024 6:15 AM EDT Bailey Monzon PA-C LAB BLOOD ORDERABLES Naina l Result Performing Organization Address City/[facility]/ZIP Co de Phone Number [address] [address], [address] [address] * (ABNORMAL) Hemoglobin A1C with Estimated Average Glucose (09/08/2024 11:09 PM EDT) Hemoglobin A1C 5.8(H) <5.7 % 09/09/2024 12:28 AM EDT [facility] Comment: A1c% ? Interpretation 5.7 - 6.0 ?Increase risk of diabetes 6.1 - 6.4 ?Higher risk of diabetes > or = 6.5 ?? Consistent with diabetes Diabetes Care, 33(Supp 1):S1-S61, 2009 Estimated Average Glucose 120 mg/dL 09/09/2024 12:28 AM EDT [facility] Blood Blood specimen / Unknown 09/08/2024 11:09 PM EDT 09/08/2024 11:46 PM EDT Marie VELASCO-Ryan LAB BLOOD [place]AB[place] [address], [place] [address] * IRON (09/08/2024 11:09 PM EDT) Iron 126 53 - 167 ug/dL 09/09/2024 12:07 AM EDT [facility] Blood Blood specimen / Unknown 09/08/2024 11:09 PM EDT 09/08/2024 11:46 PM EDT Marie VELASCO-C LAB BLOOD ORDERABLES [place] [address], [place] [address] * (ABNORMAL) Blood Gas, Arterial, once today (09/08/2024 11:09 PM EDT) Only the most recent of3 resultswithin the time period is included. pH, Arterial 7.30(L) 7.35 - 7.45 09/08/2024 11:44 PM EDT [facility] pCO2, Arterial 50(H) 32 - 45 mmHG 09/08/2024 11:44 PM EDT [facility] pO2, Arterial 229(H) 75 - 95 mmHG 09/08/2024 11:44 PM EDT [facility] CO2, Total 26 22 - 28 mmol/L 09/08/2024 11:44 PM EDT [facility] Respiratory Info VENT 40% 09/09/19 25 11:10 PM EDT [facility] P/F Ratio 573 09/08/2024 11:44 PM EDT [facility] Base Deficiency 2.3 mmol/L 11:44 PM EDT [facility] Comment:Reference Range: Neg ative 2 to Positive 3 Blood Blood specimen / Unknown 09/08/2024 11:09 PM EDT 09/08/2024 11:39 PM EDT Marie VELASCO-C LAB BLOOD ORDERABLES Final Result Performing Organization Address [facility]/[place] [address], [place] [address] * Folate Level (09/08/2024 11:09 PM EDT) Folate, Serum Specimen hemolyzed. Test not performed. >7.2 ng/mL 09/09/2024 1:01 AM EDT [facility] Blood Blood specimen / Unknown 09/08/2024 11:09 PM EDT 09/08/2024 11:47 PM EDT Marie VELASCO-C LAB BLOOD ORDERABLES Final Result Performing Organization Address City/[facility]/[place] [address], [place] [address] * (ABNORMAL) VITAMIN B12 (09/08/2024 11:09 PM EDT) Vitamin B12 904(H) 243 - 894 pg/mL 09/09/2024 12:41 AM EDT [facility] Blood Blood specimen / Unknown 09/08/2024 11:09 PM EDT 09/08/2024 11:46 PM EDT Marie VELASCO-C LAB BLOOD ORDERABLES Final Result [address] [address], [address] [address] * HIV 1/2 Ag/Ab CMIA Reflex to Confirmation (09/08/2024 4:09 PM EDT) Pathologist [facility] HIV 1/2 Ag/Ab CMIA Nonreactive Nonreactive 09/11/2024 11:39 AM EDT [facility] Comment: Results show no evidence of infection by HIV 1/2. If clinically indicated, repeat CMIA or test by nucleic acid amplification. HIV 1/2 Antigen/Antibody CMIA reflex to confirmation AND HIV-1 RNA viral load recommended in patients who are taking or have recently taken PrEP. Blood Blood specimen / Unknown 09/08/2024 4:09 PM EDT 09/08/2024 4:41 PM EDT Marie Alvarado PA-C LAB BLOOD ORDERABLES Final Result [facility] [address] [place] [address], * (ABNORMAL) Erythrocyte Sedimentation Rate (ESR) (09/08/2024 4:09 PM EDT) [facility] Erythrocyte Sediment Rate (ESR) 32(H) <20 MM/HR 09/08/2024 4:57 PM EDT [facility] Blood Blood specimen / Unknown 09/08/2024 4:09 PM EDT 09/08/2024 4:41 PM EDT Marie VELASCO-C LAB BLOOD ORDERABLES Final Result Performing Organization Address City/[facility] Co de Phone Number [address] [address], [address] [address] * (ABNORMAL) C-REACTIVE PROTEIN (09/08/2024 4:09 PM EDT) [facility] C-Reactive Protein 20.80(H) 0 - 0.49 mg/dL 09/08/2024 5:16 PM EDT [facility] Blood Blood specimen / Unknown 09/08/2024 4:09 PM EDT 09/08/2024 4:41 PM EDT Marie VELASCO-Ryan LAB BLOOD ORDERABLES Final Result Performing Organization Address [facility]/ZIP Co de Phone Number [address] [address], [address] [address] * (ABNORMAL) FERRITIN (09/08/2024 4:09 PM EDT) Ferritin 913(H) 30 - 400 ug/L 09/08/2024 5:16 PM EDT [facility] Blood Blood specimen / Unknown 09/08/2024 4:09 PM EDT 09/08/2024 4:41 PM EDT Marie VELASCO-Ryan LAB BLOOD ORDERABLES Final Result Performing Organization Address [facility] Co de Phone Number [address] [address], [address] [address] * Legionella Culture (09/08/2024 1:31 PM EDT) Culture No Legionella isolated 09/22/2024 9:15 AM EDT [facility] Bronchoalveolar Lavage (Bronchus, right middle lobe) 09/08/2024 1:31 PM EDT 09/08/2024 2:17 PM EDT Comment:Bronchoalveolar Lava ge Marie VELASCO-Ryan MICROBIOLOGY - GENERAL ORD ERABLES Final Result Performing Organization Address [facility]/ZIP Co de Phone Number [facility] [address] [place] [address], * Respiratory Culture (Aerobic and Gram stain) (09/08/2024 1:31 PM EDT) Gram stain suggestive of No neutrophils No squamous cells No organisms seen 09/08/2024 2:52 PM EDT [facility] Culture Negative after 2 days 09/10/2024 8:36 AM EDT [facility] Bronchoalveolar Lavage (Bronchus, right middle lobe) 09/08/2024 1:31 PM EDT 09/08/2024 2:19 PM EDT Comment:Bronchoalveolar Lava ge Marie Alvarado PA-C MICROBIOLOGY - GENERAL ORD ERABLES Final Result [facility] [address] [employer] [place] [address], [facility] [address] [place] [address] * Pneumocystis jirovecii (carinii) DFA (09/08/2024 1:31 PM EDT) Smear Result/Comment Not Detected Not Detected 09/11/2024 5:33 PM EDT [facility] Specimen Source REPORT 5:33 PM EDT [facility], [place] Comment: (NOTE) Bronchial Lavage CORRECTED ON 09/11 AT 1733: PREVIOUSLY REPORTED Bronchus, Right Middle Lobe Bronchoalveolar Lavage Bronchoalveolar Lavage (Bronchus, right middle lobe) 09/08/2024 1:31 PM EDT 09/08/2024 2:34 PM EDT Marie Alvarado PA-C MICROBIOLOGY - GENERAL ORD ERABLES Edited Result - Final [facility], [place] [employer] [id number] [facility] [address] [address] [place], [place] , [place] [facility], [place] [address] [facility] [address] [address] [place], [place] * Differential, Body Fluid (09/08/2024 1:31 PM EDT) Differential Source, Body Fluid Bronchoalveolar Lavage 09/08/2024 10:30 PM EDT [facility] Neutrophil, Body Fluid 94 % 09/08/2024 10:30 PM EDT [facility] Lymphoctye, Body Fluid 2 % 09/08/2024 10:30 PM EDT [facility] Monocyte, Body Fluid 1 % 09/08/2024 10:30 PM EDT [facility] Histiocyte, Body Fluid 3 % 09/08/2024 10:30 PM EDT [facility] Smear Comment, Body Fluid The reference interval and other method performance specifications are unavailable for this body fluid. Comparison of the result with concentration in the blood, serum, or plasma is recommended 09/08/2024 10:30 PM EDT [facility] Bronchus, right middle lobe 09/08/2024 1:31 PM EDT 09/08/2024 2:43 PM EDT Marie Alvarado PA-C BODY FLUIDS AND STOOLS ORD ERABLES Final Result [address] [address], [address] [address] * Cell Count, Reflex Differential, Body Fluid (09/08/2024 1:31 PM EDT) Appearance, Body Fluid Cloudy 09/08/2024 6:23 PM EDT [facility] Color [place] 09/08/2024 6:23 PM EDT [facility] Nucleated Cells, Fluid 110 /CUMM 09/08/2024 6:23 PM EDT [facility] Comment: The reference interval and other method performance specifications are unavailable for this body fluid. Comparison of the result with concentration in the blood, serum, or plasma is recommended Macroscopic clot present--question accuracy of results. Macroscopic particles present. ??Question accuracy of results. RBC, Fluid 4,455 /CUMM 09/08/2024 6:23 PM EDT [facility] Comment: The reference interval and other method performance specifications are unavailable for this body fluid. Comparison of the result with concentration in the blood, serum, or plasma is recommended Macroscopic clot present--question accuracy of results. Macroscopic particles present. ??Question accuracy of results. Bronchoalveolar Lavage (Bronchus, right middle lobe) 09/08/2024 1:31 PM EDT 09/08/2024 2:43 PM EDT Marie Alvarado PA-C BODY FLUIDS AND STOOLS ORD ERABLES Final Result Performing Organization Address City/[facility]/ZIP Co de Phone Number [address] [address], [address] [address] * Cytology (09/08/2024 1:27 PM EDT) Report [facility] CT [id number] ?? CLIA ID [id number] [address], [place] ??[address] / [phone] Cytopathology Report PATIENT NAME: MACK CANAS [facility] REC NUMBER: [id number] (AGE): 1960 (Age: 63) SPECIMEN NUMBER: [id number] DATE OBTAINED: 09/08/2024 DIAGNOSIS: A. ??RIGHT MIDDLE BRONCHUS BRONCHIAL WASHING WITH CELL BLOCK: NEGATIVE FOR MALIGNANT CELLS. MACROPHAGES AND INFLAMMATION ?? mwa/09/12/2024 Electronically Signed Out ? CINTHYA CRUZ MD Clinical Diagnosis and History: RIGHT MIDDLE BRONCHUS Tissue(s) Submitted: A: RIGHT MIDDLE BRONCHUS Bronchial Washing WITH CELL BLOCK Specimen Description: RECEIVED 3 MLS CLOUDY LIGHT PINK FLUID [1 THINPREP MADE] PLUS CELL BLOCK 1 SLIDE TOTAL AND CELL BLOCK, TIME IN FORMALIN ??07:30 HOSPITAL LAB 09/08/2024 1:27 PM EDT 09/11/2024 3:00 AM EDT Comment:RIGHT MIDDLE BRONCHU S Bronchial Washing WITH CELL BLOCK Marie Alvarado PA-C PATHOLOGY/CYTOLOGY ORDERAB LES Final Result HOSPITAL LAB See Below * (ABNORMAL) Legionella & Streptococcus Pneumoniae Antigen, Urine (09/08/2024 12:15 PM EDT) Legionella Antigen EIA, Urine Presumptive Negative Presumptive Negative 09/09/2024 9:00 AM EDT [facility] Comment: Presumptive Negative for L.pneumophila Ag in Urine, suggesting no recent or current infection. Infection due to Legionella cannot be ruled out since other serogroups and species may casue disease, Ag may not be present in Urine in early infection and the level of antigen present may be below the detection lilmit of the test. Streptococcal Antigen, Urine Presumptive Positive(A) Presumptive Negative 09/09/2024 9:00 AM EDT [facility] Comment:Presumptive Positive for Pneumococcal Pneumonia, suggesting current or past infection. Urine Urine specimen / Unknown 09/08/2024 12:15 PM EDT 09/08/2024 1:06 PM EDT us Onofre Barnett PA-C URINE ORDERABLES Final Resu lt Performing Organization Address City/[facility]/ZIP Co de Phone Number [facility] [address] [place] [address], * Red Blood Cell Morphology (09/08/2024 12:15 PM EDT) Normochromic Present 09/08/2024 1:54 PM EDT [facility] Normocytic Present 09/08/2024 1:54 PM EDT [facility] Blood Blood specimen / Unknown 09/08/2024 12:15 PM EDT 09/08/2024 1:02 PM EDT us Onofre Barnett PA-C LAB BLOOD ORDERABLES Final Result Performing Organization Address City/[facility] Co de Phone Number [address] [address], [address] [address] * Pathology Smear Review, Whole Blood (09/08/2024 12:15 PM EDT) Smear Origin Smear sent for physician review. 09/08/2024 2:34 PM EDT [facility] Pathology Comment Smear reivew: 09/12/2024 12:40 AM EDT [facility] Comment: Granulocytosis: consider infection or other reactive process. Anemia and thrombocytopenia--smear not diagnostic of etiology. Target cells--consider liver disease, hemoglobinopathy or other etiology. Clinical correlation and follow up recommended. Onofre Larsen MD,PhD. (las) Blood specimen / Unknown 09/08/2024 12:15 PM EDT 09/08/2024 1:02 PM EDT Onofre Barnett PA-C PATHOLOGY/CYTOLOGY ORDERABL ES Final Result Performing Organization Address [facility] Co de Phone Number [address] [address], [address] [address] * (ABNORMAL) Platelet Count (09/08/2024 12:15 PM EDT) Platelet Count 16(LL) 150 - 450 Thou/uL 09/08/2024 1:40 PM EDT [facility] Immature Platelet Fraction 18.5(H) 1.2 - 8.6 % 09/08/2024 1:40 PM EDT [facility] Blood specimen / Unknown 09/08/2024 12:15 PM EDT 09/08/2024 1:02 PM EDT Onofre Barnett PA-C LAB BLOOD ORDERABLES Final Result Performing Organization Address [facility] de Phone Number [address] [address], [address] [address] * CT Thorax w/o contrast (09/08/2024 12:07 PM EDT) Anatomical Region Laterality Modality Chest Computed Tomogra phy 09/08/2024 11:4 0 AM EDT Impressions 09/14/2024 12:59 PM EDT 1. ??Diffuse interlobular septal thickening, with scattered areas of groundglass and nodular opacities. Differential diagnoses include ARDS, diffuse alveolar hemorrhage, pulmonary edema or other causes of multifocal infectious/inflammatory process. 2. ??Bibasilar multiple nodular opacities, may represent atelectasis or infectious/inflammatory process. 3. ??Small pericardial effusion. 4. ??Fluid density structure in the right cardiophrenic region measuring 3.8 x 3.8 cm, previously 3.1 x 3.1 cm, may represent pericardial fluid/pericardial cyst. Narrative 09/14/2024 12:59 PM EDT EXAMINATION: CT CHEST WITHOUT CONTRAST CLINICAL INFORMATION: worsening hypoxia, evidence of ARDS on CXR, ?alveolar hemorrhage. COMPARISON: CT chest 09/06/2024 TECHNIQUE: Multidetector volumetric imaging was performed from the thoracic inlet to below the diaphragms without intravenous contrast. Sagittal and coronal reformatted images were obtained on the technologist's workstation. This CT examination was performed using dose optimization techniques as appropriate, variously including the following: *Automated exposure control *Adjustment of mA and/or kV according to patient size (this includes techniques or standardized protocols for targeted exams where dose is matched to indication/reason for exam; i.e. extremities or head) *Use of iterative reconstruction technique Total exam dose-length product 238 mGy-cm FINDINGS: LUNG: Endotracheal tube is in place, with the tip 4.6 cm above the level of tyesha. Bilateral lower lobe bronchial wall thickening. Minimal biapical pleuroparenchymal scarring. There is diffuse interlobular septal thickening. Scattered areas of groundglass and nodular opacities. Bibasilar multiple nodular opacities. Diffuse increased AP appearance. Bibasilar subsegmental atelectasis. PLEURA: No pleural effusion or pneumothorax. CORONARY ARTERY CALCIFICATION: Present MEDIASTINUM: Heart is mildly enlarged. Small pericardial effusion. No mediastinal lymphadenopathy. Thyroid gland is unremarkable. VASCULAR: Normal caliber thoracic aorta. CHEST WALL/AXILLA: No axillary or internal mammary lymphadenopathy. Locules of air in the right anterior chest, may be iatrogenic. OSSEOUS STRUCTURES: No acute or suspicious osseous abnormality. Multilevel mild degenerative changes. UPPER ABDOMEN: Fluid density structure in the right cardiophrenic region measuring 3.8 x 3.8 cm, previously 3.1 x 3.1 cm, may represent pericardial fluid/pericardial cyst. Procedure Note Valerio Alfaro MD - 09/14/2024 EXAMINATION: CT CHEST WITHOUT CONTRAST CLINICAL INFORMATION: worsening hypoxia, evidence of ARDS on CXR, ?alveolar hemorrhage. COMPARISON: CT chest 09/06/2024 TECHNIQUE: Multidetector volumetric imaging was performed from the thoracic inlet to below the diaphragms without intravenous contrast. Sagittal and coronal reformatted images were obtained on the technologist's workstation. This CT examination was performed using dose optimization techniques as appropriate, variously including the following: *Automated exposure control *Adjustment of mA and/or kV according to patient size (this includes techniques or standardized protocols for targeted exams where dose is matched to indication/reason for exam; i.e. extremities or head) *Use of iterative reconstruction technique Total exam dose-length product 238 mGy-cm FINDINGS: LUNG: Endotracheal tube is in place, with the tip 4.6 cm above the level of tyesha. Bilateral lower lobe bronchial wall thickening. Minimal biapical pleuroparenchymal scarring. There is diffuse interlobular septal thickening. Scattered areas of groundglass and nodular opacities. Bibasilar multiple nodular opacities. Diffuse increased AP appearance. Bibasilar subsegmental atelectasis. PLEURA: No pleural effusion or pneumothorax. CORONARY ARTERY CALCIFICATION: Present MEDIASTINUM: Heart is mildly enlarged. Small pericardial effusion. No mediastinal lymphadenopathy. Thyroid gland is unremarkable. VASCULAR: Normal caliber thoracic aorta. CHEST WALL/AXILLA: No axillary or internal mammary lymphadenopathy. Locules of air in the right anterior chest, may be iatrogenic. OSSEOUS STRUCTURES: No acute or suspicious osseous abnormality. Multilevel mild degenerative changes. UPPER ABDOMEN: Fluid density structure in the right cardiophrenic region measuring 3.8 x 3.8 cm, previously 3.1 x 3.1 cm, may represent pericardial fluid/pericardial cyst. IMPRESSION: 1. Diffuse interlobular septal thickening, with scattered areas of groundglass and nodular opacities. Differential diagnoses include ARDS, diffuse alveolar hemorrhage, pulmonary edema or other causes of multifocal infectious/inflammatory process. 2. Bibasilar multiple nodular opacities, may represent atelectasis or infectious/inflammatory process. 3. Small pericardial effusion. 4. Fluid density structure in the right cardiophrenic region measuring 3.8 x 3.8 cm, previously 3.1 x 3.1 cm, may represent pericardial fluid/pericardial cyst. [place] CT ORDERABLES Final R esult * CT Head w/o contrast (09/08/2024 12:07 PM EDT) Anatomical Region Laterality Modality Head Computed Tomogra phy 09/08/2024 11:4 0 AM EDT Impressions 09/08/2024 3:48 PM EDT 1. No CT evidence of acute territorial infarction or acute intracanal hemorrhage. Limited evaluation of the brainstem. Please note, CT is not sensitive to take small acute ischemic infarct. MR of the brain without contrast is recommended for further assessment. 2. Mild to moderate chronic white matter small as ischemic changes. Narrative 09/08/2024 3:48 PM EDT EXAMINATION: CT HEAD WITHOUT CONTRAST CLINICAL INFORMATION: Altered mental status. ?? COMPARISON: None available. TECHNIQUE: Imaging was performed from the skull base to vertex without intravenous administration of contrast. Sagittal and coronal reformatted images were obtained on the technologist's workstation. This CT examination was performed using dose optimization techniques as appropriate, variously including the following: *Automated exposure control *Adjustment of mA and/or kV according to patient size (this includes techniques or standardized protocols for targeted exams where dose is matched to indication/reason for exam; i.e. extremities or head) *Use of iterative reconstruction technique FINDINGS: No signs of acute territorial infarction or acute intracanal hemorrhage. No mass effect or midline shift. Mild to moderate chronic white matter small as ischemic changes. Limited evaluation of the brainstem. The ventricles, sulci and cisterns are normal in size, shape and position. The basal cisterns are patent. The partially visualized paranasal sinuses and mastoid air cells are clear. There is no calvarial abnormality. The orbits are grossly normal. Procedure Note Norberto Sellers MD - 09/08/2024 EXAMINATION: CT HEAD WITHOUT CONTRAST CLINICAL INFORMATION: Altered mental status. COMPARISON: None available. TECHNIQUE: Imaging was performed from the skull base to vertex without intravenous administration of contrast. Sagittal and coronal reformatted images were obtained on the technologist's workstation. This CT examination was performed using dose optimization techniques as appropriate, variously including the following: *Automated exposure control *Adjustment of mA and/or kV according to patient size (this includes techniques or standardized protocols for targeted exams where dose is matched to indication/reason for exam; i.e. extremities or head) *Use of iterative reconstruction technique FINDINGS: No signs of acute territorial infarction or acute intracanal hemorrhage. No mass effect or midline shift. Mild to moderate chronic white matter small as ischemic changes. Limited evaluation of the brainstem. The ventricles, sulci and cisterns are normal in size, shape and position. The basal cisterns are patent. The partially visualized paranasal sinuses and mastoid air cells are clear. There is no calvarial abnormality. The orbits are grossly normal. IMPRESSION: 1. No CT evidence of acute territorial infarction or acute intracanal hemorrhage. Limited evaluation of the brainstem. Please note, CT is not sensitive to take small acute ischemic infarct. MR of the brain without contrast is recommended for further assessment. 2. Mild to moderate chronic white matter small as ischemic changes. [facility]ri VELAS[facility] IMG CT ORDERABLES Final R esult * XR Chest 1 view-Portable (09/08/2024 10:32 AM EDT) Only the most recent of3 resultswithin the time period is included. Anatomical Region Laterality Modality Chest Computed Radiogr aphy 09/08/2024 10:0 0 AM EDT Impressions 09/10/2024 5:08 PM EDT Mild interval improvement in bilateral airspace opacities. Narrative 09/10/2024 5:08 PM EDT EXAMINATION: XR CHEST CLINICAL INFORMATION: Intubation. COMPARISON: XR Chest 09/08/2024; CT Chest with IV contrast 09/06/2024 TECHNIQUE: One view of the chest was obtained. FINDINGS: ET tube 4.9 cm from the tyesha. NG tube within the stomach Stable cardiac size. Mild interval improvement in bilateral airspace opacities. No pneumothorax or sizable pleural effusion. Procedure Note Jarvis Fofana MD - 09/10/2024 EXAMINATION: XR CHEST CLINICAL INFORMATION: Intubation. COMPARISON: XR Chest 09/08/2024; CT Chest with IV contrast 09/06/2024 TECHNIQUE: One view of the chest was obtained. FINDINGS: ET tube 4.9 cm from the tyesha. NG tube within the stomach Stable cardiac size. Mild interval improvement in bilateral airspace opacities. No pneumothorax or sizable pleural effusion. IMPRESSION: Mild interval improvement in bilateral airspace opacities. Onofre Barnett PA-C [facility] Final Result * ANES INTUBATION (09/08/2024 10:04 AM EDT) Narrative Lloyd Dorsey MD - 09/08/2024 10:04 AM EDT Lloyd Dorsey MD ? 09/08/2024 ??7:54 PM Anesthesia Procedure Note - ??Intubation Patient Name: Mack Canas : 1960 Patient location: [facility] - [facility] Procedure indications: respiratory failure Procedure diagnosis: Acute hypoxic respiratory failure (HCC) Performed by: Resident/NEWS [facility]AD[facility]STER ? Lloyd Dorsey MD ? Rusty Stroud, DO ? Gallo Whitaker MD Chart Verification ID band applied and present Patient ID verified via arm band. Airway: airway not difficult Preanesthetic Checklist monitors and equipment checked. Patient's pre-procedure mental status: agitated The patient was sedated prior to procedure. Current level of sedation: general anesthesia Airway not difficult - Procedure Details Intubation route: oral Intubation method: video laryngoscopy ??GS 4 Number of attempts: 1 Patient status for intubation: unresponsive, paralyzed and sedated Patient position: supine Preoxygenation: BVM Quality of BVM: 2 person, oral airway and moderate Tube size: 8.0 mm Tube: EVAC ??- cuffed and cuff inflated Cricoid pressure not applied or not required Cord visualization: Grade I Placement confirmation method: chest rise and ETCO2 monitor Breath sounds: equal bilaterally ETT to lip: 24 cm Dentition: same as baseline desaturation < 90% - brief duration Complications: no complications Additional comments: Patient is a 63-year-old male with past medical history of depression, alcohol abuse in remission x 15 years, tobacco use ([id number]) who initially presented to [facility] via EMS with altered mental status, left eye swelling, tongue swelling and severe right ear pain. ??HD stable and placed on oximask to maintain O2 sats. CT chest with evidence of aspiration or endobronchial pneumonia. MRI brain all highly suggest left cavernous sinus thrombosis. On arrival to he was increasingly hypoxic requiring hi-flow oxygen. CXR with diffuse alveolar process. Anesthesia stat paged for worsening respiratory status despite hi-flow. BP 120/80, HR 90s, Sats 93%. Patient confused and slightly agitated with bilateral mitts on. Patient induced and BVM performed with two person BVM and oral airway. Glidescope used for intubation. No erythema, mild secretions in posterior pharynx. No edema. ETT successfully placed into trachea. Confirmed EtCO2 color change and bilateral breath sounds appreciated. HR, BP remained stable. Sats briefly dropped to 81% for less than 20 seconds. Saturations increased to 100% on vent. Vitals remained stable. Primary team resumed care of patient. Made aware that patient was given a muscle relaxant. No complications. us Lloyd Dorsey MD [place] ANESTHESIA Final Result * VAS VENOUS DUPLEX LEG (DVT)-BILATERAL (09/08/2024 9:26 AM EDT) Anatomical Region Laterality Modality Ultrasound 09/08/2024 7:40 AM EDT Narrative 09/08/2024 11:29 AM EDT Table formatting from the original result was not included. ?? Department: [facility] Patient: [id number] (MACK CANAS) ?? Patient Location: ..[address] CPT Code: 54966 ICD-9: ?? Referring Physician: MARIE ALVARADO Impression Bilaterally, the duplex ultrasound of the lower extremities demonstrates normal Doppler flow with no thrombus seen in maldonado scale. ??Findings are not consistent with the presence of deep vein thrombosis bilaterally. ?? Indications ? 63 year old male admitted with altered mental status , cavernous sinus thrombosis Findings: ?? Right ??Impression ??Phasic ??Compressible Common Femoral Vein ??Normal ??Yes ??Complete Proximal femoral vein ??Normal ?Complete Mid femoral vein ??Normal ?Complete Distal femoral vein ??Normal ?Complete Popliteal ??Normal ?Complete Posterior Tibial Vein ??Normal ?Complete Peroneal ??Normal ?Complete GSV Saphenofemoral junction ??Normal ?Complete Left ??Impression ??Phasic ??Compressible Common Femoral Vein ??Normal ??Yes ??Complete Proximal femoral vein ??Normal ?Complete Mid femoral vein ??Normal ?Complete Distal femoral vein ??Normal ?Complete Popliteal ??Normal ?Complete Posterior Tibial Vein ??Normal ?Complete Peroneal ??Normal ?Complete GSV Saphenofemoral junction ??Normal ?Complete ?? Electronically Signed by: KELLY MONTES III, MD,OWEN on 2024-09-08 11:29:29 AM End of Report Procedure Note Kelly Montes III, MD - 09/08/2024 Department: [facility] Patient: [id number] (MACK CANAS) Patient Location: [id number] [place] [address] CPT Code: 28192 ICD-9: Referring Physician: MARIE ALVARADO Impression Bilaterally, the duplex ultrasound of the lower extremities demonstratesnormal Doppler flow with no thrombus seen in maldonado scale. Findings are notconsistent with the presence of deep vein thrombosis bilaterally. Indications 63 year old male admitted with altered mental status , cavernous sinusthrombosis Findings: Right Impression Phasic Compressible Common Femoral Vein Normal Yes Complete Proximal femoral vein Normal Complete Mid femoral vein Normal Complete Distal femoral vein Normal Complete Popliteal Normal Complete Posterior Tibial Vein Normal Complete Peroneal Normal Complete GSV Saphenofemoral junction Normal Complete Left Impression Phasic Compressible Common Femoral Vein Normal Yes Complete Proximal femoral vein Normal Complete Mid femoral vein Normal Complete Distal femoral vein Normal Complete Popliteal Normal Complete Posterior Tibial Vein Normal Complete Peroneal Normal Complete GSV Saphenofemoral junction Normal Complete Electronically Signed by: KELLY MONTES III, MD,OWEN on [id number]:29:29 AM End of Report us Marie Alvarado PA-C VASCULAR LAB ORDERABLES Fi nal Result * Influenza A/B, RSV, SARS-CoV-2 JEFF Multiplex (FLUVID) (09/08/2024 5:24 AM EDT) Pathologist [facility] Influenza A Virus Not Detected Not Detected 09/08/2024 7:29 AM EDT [facility] Influenza B Virus Not Detected Not Detected 09/08/2024 7:29 AM EDT [facility] SARS-CoV-2 Not Detected Not Detected 09/08/2024 7:29 AM EDT [facility] Respiratory Syncytial Virus Not Detected Not Detected 09/08/2024 7:29 AM EDT [facility] Comment Negative results do not preclude SARS-CoV-2, Influenza or RSV infection and should not be used as the sole basis for treatment or other patient management decisions. 09/08/2024 7:29 AM EDT [facility] Swab, Nasopharyngeal Nasopharyngeal swab / Unknown 09/08/2024 5:24 AM EDT 09/08/2024 6:03 AM EDT us Nanci NEVAREZC MICROBIOLOGY - GENERAL ORD ERABLES Final Result Performing Organization Address City/[facility] Co de Phone Number [address] [address], [place] [address] * (ABNORMAL) Thrombin Time (09/08/2024 1:32 AM EDT) Only the most recent of2 resultswithin the time period is included. Anticoagulant NO ANTI COAGULANT MEDS 09/08/2024 1:33 AM EDT [facility] Thrombin Time 12.2(L) 12.7 - 19.2 seconds 09/08/2024 2:13 AM EDT [facility] Blood Blood specimen / Unknown 09/08/2024 1:32 AM EDT 09/08/2024 1:55 AM EDT us Nanci Guerra PA-C LAB BLOOD ORDERABLES Final Result Performing Organization Address City/[facility] Co de Phone Number [address] [address], [address] [address] * (ABNORMAL) Fibrinogen Level (09/08/2024 1:32 AM EDT) Only the most recent of2 resultswithin the time period is included. Fibrinogen 579(H) 148 - 435 mg/dL 09/08/2024 2:13 AM EDT [facility] Blood Blood specimen / Unknown 09/08/2024 1:32 AM EDT 09/08/2024 1:55 AM EDT Nanci Guerra PA-C LAB BLOOD ORDERABLES Final Result Performing Organization Address City/[facility]/ZIP Co de Phone Number [address] [address], [place] [address] * ABO Confirmation (09/08/2024 1:17 AM EDT) ABO/Rh A NEGATIVE 09/08/2024 2:58 AM EDT [facility] Blood Blood specimen / Unknown 09/08/2024 1:17 AM EDT 09/08/2024 2:19 AM EDT Aimee Landsette PA BLOOD BANK TEST ORDERABLE S Final Result Performing Organization Address [facility] [place] [address], [place] [address] * Flow Cytometry Report (09/08/2024 12:00 AM EDT) Report [facility] [id number] ?? CLIA ID [id number] [address] [place] [address] ??[id number] / [phone] Hematopathology Report PATIENT NAME: MACK CANAS REC NUMBER: [id number] (AGE): 1960 (Age: 63) SPECIMEN NUMBER: [id number] DATE OBTAINED: 09/08/2024 DIAGNOSIS BRONCHOALVEOLAR LAVAGE, RIGHT MIDDLE LOBE: PLEASE REFER TO THE CORRESPONDING SPECIMEN, [id number]. ??SEE COMMENT. [email or web address]/09/11/2024 Electronically Signed Out ? ONOFRE LARSEN MD, PhD COMMENT Test not performed; charge credited. NC Clinical Information and History: Sepsis; respiratory failure; ARDS secondary to diffuse alveolar hemorrhage. ?? Tissue(s) Submitted: A: BAL RML Gross Description: Received is a BAL (RML) specimen (approximately 10 mL) for flow cytometry. Grossly, the specimen appears cloudy and pink, with macroscopic particles. ?? HOSPITAL LAB 09/08/2024 09/09/2024 12: 31 PM EDT Comment:BAL RML Generic Provider PATHOLOGY/CYTOLOGY ORDERABLES F inal Result Performing Organization Address City/[facility]/ZIP Co de Phone Number HOSPITAL LAB See Below * (ABNORMAL) Ear Culture (09/07/2024 7:47 PM EDT) Gram stain suggestive of No neutrophils No squamous cells Red blood cells Gram positive rods 09/07/2024 9:33 PM EDT [facility] Culture La parapsilosis Identification and/or susceptibilities completed per physician request. La MOODY's performed by gradient MOODY strip. This test was developed and its performance characteristics determined by [facility]. It has not been cleared or approved by the Food and Drug Administration. (A) 09/14/2024 1:02 PM EDT [facility] Culture Bordetella species(A) 09/14/2024 1:02 PM EDT [facility] Culture Mixed normal karin 2024 1:02 PM EDT [facility] Swab, Abscess (Ear, External right) 09/07/2024 7:47 PM EDT 09/07/2024 9:00 PM EDT Comment:Swab, Abscess Narrative Organism Antibiotic Method Susceptibility La parapsilosis Fluconazole (REPORT) FU NGAL INTERPRETATION (MCG/ML) Susceptible La parapsilosis Voriconazole (REPORT) FU NGAL INTERPRETATION (MCG/ML) Susceptible La parapsilosis Micafungin (REPORT) FU NGAL INTERPRETATION (MCG/ML) Intermediate La parapsilosis Fluconazole (REPORT) FUNGAL MOODY (MCG/ML) 1 La parapsilosis Voriconazole (REPORT) FUNGAL MOODY (MCG/ML) 0.023 La parapsilosis Micafungin (REPORT) FUNGAL MOODY (MCG/ML) 3 Jose Pond MD MICROBIOLOGY - GENERAL ORDERAB LES Final Result [facility] [address] [place] [address], [place] [phone] * [place] Archive for reference only CT (09/07/2024 7:20 PM EDT) Only the most recent of4 resultswithin the time period is included. Narrative SYSTEMGENERATED, DOCUMENTATION - 09/07/2024 7:00 PM EDT This order has been auto-finalized and does not contain a result. Britton Sinclairx PA-C IMG DIGITIZE FILMS F inal Result * [place] Archive for reference only CR (09/07/2024 7:10 PM EDT) Only the most recent of2 resultswithin the time period is included. Narrative SYSTEMGENERATED, DOCUMENTATION - 09/07/2024 7:00 PM EDT This order has been auto-finalized and does not contain a result. Britton Sinclairx PA-C IMG DIGITIZE FILMS F inal Result * [place] Archive for reference only MR (09/07/2024 7:10 PM EDT) Only the most recent of2 resultswithin the time period is included. Narrative SYSTEMGENERATED, DOCUMENTATION - 09/07/2024 7:00 PM EDT This order has been auto-finalized and does not contain a result. Britton Sinclairx PA-C IMG DIGITIZE FILMS F inal Result * Type and Screen (09/07/2024 6:55 PM EDT) ABO/Rh A NEGATIVE 09/07/2024 10:07 PM EDT [facility] Antibody Screen NEGATIVE 09/07/2024 10:07 PM EDT [facility] Specimen Expiration 09/10/2024 09/07/2024 10:07 PM EDT [facility] Blood Bank Comment Second Sample needed for Blood Transfusion 09/07/2024 10:07 PM EDT [facility] Blood Blood specimen / Unknown 09/07/2024 6:55 PM EDT 09/07/2024 8:54 PM EDT Aimee VELASCO BLOOD BANK TEST ORDERABLE S Final Result Performing Organization Address City/[facility]/ZIP Co de Phone Number [address] [address], [address] [address] * Lactic Acid, Plasma (Routine) (09/07/2024 6:24 PM EDT) [facility] Lactic Acid 1.9 0.5 - 1.9 mmol/L 09/07/2024 7:08 PM EDT [facility] Blood Blood specimen / Unknown 09/07/2024 6:24 PM EDT 09/07/2024 6:39 PM EDT Aimee VELASCO LAB BLOOD ORDERABLES Naina l Result Performing Organization Address [facility]/[place] [address], [place] [address] * High Sensitivity Troponin T (09/07/2024 4:36 PM EDT) [facility] High Sensitivity Troponin T 22 <23 ng/L 09/07/2024 8:13 PM EDT [facility] Delta (Change) NO PREVIOUS RESULT <3 09/07/2024 8:13 PM EDT [facility] 09/07/2024 4:36 PM EDT 09/07/2024 5:12 PM EDT Marie Alvarado PA-C LAB BLOOD ORDERABLES Final Result Performing Organization Address City/[facility]/ZIP Co de Phone Number [address] [address], [address] [address] * Nasal MRSA Screen, PCR (09/07/2024 4:36 PM EDT) [facility] MRSA Result Not Detected Not Detected 7:03 PM EDT [facility] Comment:Performed by the Xpe rt MRSA NxG Assay Swab, Anterior Nares Specimen from nose / Unknown 09/07/2024 4:36 PM EDT 09/07/2024 5:12 PM EDT Marie Alvarado PA-C MICROBIOLOGY - GENERAL ORD ERABLES Final Result Performing Organization Address [facility] Co de Phone Number [address] [address], [address] [address] * TSH, Highly Sensitive (09/07/2024 4:36 PM EDT) TSH, Highly Sensitive 0.80 0.27 - 4.20 mIU/L 09/07/2024 5:44 PM EDT [facility] Blood Blood specimen / Unknown 09/07/2024 4:36 PM EDT 09/07/2024 5:12 PM EDT Marie Alvarado PA-C LAB BLOOD ORDERABLES Final Result Performing Organization Address City/[facility] Co de Phone Number [address] [address], [address] [address] from Last 3 Months Insurance [facility] [place] [phone] [facility] MEDICARE [facility] [place] [phone] [facility] MEDICARE [facility] Advance Directives * Full Code (Latest Code Status on File) Date Activated Date Inactivated Comments 09/07/2024 4:35 PM 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
--- OUTSIDE RECORDS SUMMARY | 2024-09-22 15:49 | XMS_ITS | Encounter Summary ---
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 [address] [place] [address] Kay Zuniga, DO [address] [place] [address] Acute cerebral venous sinus thrombosis (Primary Dx); Acute swimmer's ear of right side Discharge Disposition: Short Term-Acute Care Hospital Social History Tobacco Use Types Packs/Day Years Used Date Smoking Tobacco: Former Cigarettes Tobacco Cessation:Counseling Given: Not Answered Alcohol Use Standard Drinks/Week Comments Not Currently 0 (1 standard drink = 0.6 oz pure alcohol) ETOH ABUSE, QUIT 15 YEARS AGO [facility] [employer] Answer Date Recorded In the past 12 months has th e Rx[employer] Containment, gas, oil, or water [employer] threatened to shut off services in your [...] any time in the past 12 m [facility], were you homeless or living in a long term (including now)? Patient unable to answer 09/09/2024 Sex and Gender Information Value Date Recorded Sex Assigned at Male 09/08/2024 11:50 AM EDT Legal Sex Male 12:26 PM EDT Gender Identity Male 09/08/2024 11:50 AM EDT Sexual Orientation Heterosexual (straight) 09/08 11:50 AM EDT documented as of this encounter Last Filed Vital Signs Vital Sign Reading [...] Mass Index 25.92 09/20/2024 2:30 PM EDT documented in this encounter Functional Status * Audit-C Score Answer Date of Assessment Author 0 09/07/2024 4:00 PM EDT Claire Ramirez RN * Question Answer Date of Assessment Author Q1: How often do you have a drink containing alcohol? Never 09/07/2024 4:00 PM EDT Claire Ramirez RN Q2: How many drinks containing alcohol do you have on a typical day when you are drinking? Patient does not drink 09/07/2024 4:00 PM EDT Claire Ramirez, BRIAN Q3: How often do you have six or more drinks on one occasion? Never 09/07/2024 4:00 PM EDT Claire Ramirez RN documented as of this encounter Discharge Instructions * Discharge Instr - Incision/Wound/Pressure Ulcer/Ostomy* Elizabeth Braga RN - 09/16/2024 11:54 AM EDT 1. Routine interventions per skin Injury prevention and treatment interventions per protocol: Low air loss bed, dry flow pads under patient, Q2 turns, waffle cushion when OOB to chair, limit sit times to 1 hr (may extend to 2 hours if no sacral or posterior wounds) with frequent weight shifts. Elevate heels off bed with pillows or boots. 2. Optimize nutrition per RD recommendations. Glucose control. 3. Progress mobility per MDs orders. 4. Protective sacral foam dressing q3d and prn, remove and reapply for twice daily skin assessments documented in this encounter Medications at Time of Discharge acetaminophen (TYLENOL) 325 MG tabletIndications :Acute cerebral venous sinus thrombosis 3 tablets (975 mg total) by NG Tube route 4 times daily (every 6 hours) as needed for fever, mild pain or headaches. 09/22/2024 5 bisacodyl (DULCOLAX) 10 MG suppositoryIndica tions:Acute cerebral venous sinus thrombosis Insert 1 suppository (10 mg total) into the rectum daily as needed for constipation (if no bowel movement by day 2). 09/22/2024 5 FLUoxetine (PROzac) 40 MG capsule Take 1 capsule (40 mg total) by mouth daily. folic acid (FOLVITE) 1 MG tabletIndications :Acute cerebral venous sinus thrombosis Take 1 tablet (1 mg total) by mouth daily. 30 tablet 09/23/2024 5 Heparin Sodium, Porcine, (heparin, porcine,) 1000 unit/mL injectionIndicati ons:Acute cerebral venous sinus thrombosis Infuse 2.8 mL (2,800 Units total, 30 Units/kg x 92.9 kg (Previous weight)) into a venous catheter 4 times daily (every 6 hours) as needed (Anti-Xa level LESS than 0.1 units/mL). 09/22/2024 heparin, porcine, 604[address]-9.45 UT/500ML-% Solution infusionIndicatio ns:Acute cerebral venous sinus thrombosis Infuse 1,003.32 Units/hr (10.8 Units/kg/hr x 92.9 kg (Previous weight)) into a venous catheter continuous. 09/22/2024 insulin lispro (HumaLOG/ADMELOG) 100 units/mL injectionIndicati ons:Acute cerebral venous sinus thrombosis Inject 0.01-0.06 mL (1-6 Units total) under the skin 4 (four) times a day before meals and nightly. 09/22/2024 lactulose (ENULOSE) 10 gm/15 mL solutionIndicatio ns:Acute cerebral venous sinus thrombosis Take 30 mL (20 g total) by mouth daily as needed (constipation). 09/22/2024 5 metoPROLOL TARTRATE (LOPRESSOR) 50 MG tabletIndications :Acute cerebral venous sinus thrombosis Take 1 tablet (50 mg total) by mouth every 12 (twelve) hours around the clock. 09/22/2024 5 multivitamin with minerals (CEROVITE) Liquid liquidIndications :Acute cerebral venous sinus thrombosis Take 15 mL by mouth daily. 09/23/2024 5 nicotine (NICODERM CQ) 21 MG/24HR patchIndications: Acute cerebral venous sinus thrombosis Place 1 patch on the skin daily. 09/23/2024 5 risperiDONE (RisperDAL) 0.5 MG tablet Take 1 tablet (0.5 mg total) by mouth 2 (two) times a day. thiamine mononitrate (VITAMIN B-1) 100 MG tabletIndications :Acute cerebral venous sinus thrombosis Take 1 tablet (100 mg total) by mouth daily. 09/23/2024 5 documented as of this encounter Progress Notes * Remy Garcia RN - 09/22/2024 2:13 PM EDT 09/22/24 1412 Plan Plan Acute Hospital transfer [facility] Patient/Family in Agreement with Plan yes Final Discharge Disposition Code 02 - short term acute [facility] hospital Final Case Management Care Plan Note Final Destination: Acute Care Hospital: [facility] Summary: Per MD, pt is to be transferred to [facility]. Confirmed pt acceptance to [facility] for Acute Hospital Transfer. Family made aware of transfer by , in agreement with plan. Ambulance coordinated through [facility]. Final discharge Transportation and time: Amb 1400PM * Pierre Michaud MD - 09/21/2024 1:59 PM EDT [facility] Progress Note Assessment & Plan Assessment Alcohol use disorder in remission for 15 years Tobacco use disorder with a [id number] history Presenting with altered mental status, left eye swelling, tongue swelling and severe right ear pain MRIs were done and the patient was sent down here It looks like he has a cavernous sinus thrombosis. 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 Bronchoscopy was done 417 culture of his ear is growing yeast and Bordetella trematum He remains on the ventilator Repeat MRI is about the same He is awake alert and following He is extubated His speech is better Temperature is 100 with a white count of 10.1 and a creatinine of 0.8 We took him off antibiotics Plan Needs ongoing physical therapy and OT Subjective No shortness of breath or chest pain Objective Last Vitals Pulse:83,Resp:18,BP:138/70,SpO2:95 %,Weight:86.7 kg (191 lb 2.2 oz) Temp Last 24 hrs: Temp Min: 96.9 ??F (36.1 ??C) Max: 100 ??F (37.8 ??C) Last temp: 97.7 ??F (36.5 ??C) (Tympanic) Physical Exam Lungs: Clear Cardiac: RRR Abdomen: +BS Soft Nontender Skin:No rash No skin lesions Intake/Output Summary (Last 24 hours) at 09/21/2024 1359 Last data filed at 09/21/2024 1309 Gross per 24 hour Intake 40 ml Output 801 ml Net -761 ml Relevant data reviewed MEDICATIONS Current Facility-Administered Medications Medication Dose Route Frequency Provider Last Rate Last Admin acetaminophen (TYLENOL) tablet 975 mg 975 mg NG Tube Q6H PRN Kira Bruce MD bisacodyl (DULCOLAX) suppository 10 mg 10 mg Rectal Daily PRN Britton Rodriguez PA-C chlorhexidine (PERIDEX) 0.12 % oral solution 15 mL 15 mL Mouth/Throat BID Britton Rodriguez PA-C 15 mL at 09/21/24 1122 chlorhexidine gluconate 2 % wipes - urethral catheter CHG application Topical Daily Britton Narvaez PA-C 1 each at 09/20/24 0929 glucose (GLUTOSE 15) 40 % oral gel 37.5 g 1 Tube Oral Q15 Min PRN Britton Rodriguez PA-C Or glucose (GLUTOSE 15) 40 % oral gel 75 g 2 Tube Oral Q15 Min PRN Britton Rodriguez PA-C Or dextrose 50 % solution 12.5 g 12.5 g Intravenous Q15 Min PRN Britton Rodriguez PA-C Or dextrose 50 % solution 25 g 25 g Intravenous Q15 Min PRN Britton Rodriguez PA-C Or glucagon (GLUCAGEN) injection 1 mg 1 mg Intramuscular Daily PRN Britton Rodriguez PA-C FLUoxetine (PROzac) 20 MG/5ML solution 40 mg 40 mg NG Tube Daily Kay Zuniga DO 40 mg at 09/21/24 1346 folic acid (FOLVITE) tablet 1 mg 1 mg Feeding Tube Daily Pauline Salinas MD 1 mg at 09/21/24 1058 heparin (porcine) 1000 unit/mL injection 2,800 Units 30 Units/kg Intravenous Q6H PRN Britton Rodriguez PA-C heparin (porcine) IV infusion 25,000 units in 500 mL 0.45% NaCl (premix) 10.8 Units/kg/hr Intravenous Continuous Britton Rodriguez PA-C 25.64 mL/hr at 09/21/24 0155 13.8 Units/kg/hr at 155 insulin lispro (HumaLOG/ADMELOG) 100 units/mL injection 1-6 Units 1-6 Units Subcutaneous Q4H [facility] Britton Rodriguez PA-C 1 Units at 09/20/24 1227 lactulose (ENULOSE) 10 gm/15 mL solution 20 g 20 g NG Tube Daily PRN Kira Bruce MD methylPREDNISolone sodium succinate (SOLU-Medrol) injection 40 mg 40 mg Intravenous Q24H [facility] Britton Rodriguez PA-C 40 mg at 09/21/24 1058 metoPROLOL TARTRATE (LOPRESSOR) tablet 50 mg 50 mg NG Tube Q12H [facility] Kira Bruce MD 50 mg at 09/21/24 1059 multivitamin with minerals (CEROVITE) liquid 15 mL 15 mL Feeding Tube Daily Pauline Salinas MD 15 mL at 09/21/24 1058 naloxone (NARCAN) 0.4 mg/mL injection 0.4 mg 0.4 mg Intravenous Q5 Min PRN Britton Rodriguez PA-C nicotine (NICODERM CQ) 21 MG/24HR patch 1 patch 1 patch Transdermal Daily Britton Rodriguez PA-C 1 patch at 09/21/24 1059 [Provider Held] nystatin (MYCOSTATIN) 610413 UNIT/ML suspension 500,000 Units 500,000 Units Mouth/Throat 4x Daily Kira Bruce MD polyethylene glycol (miraLAx) packet 17 g 17 g Feeding Tube BID Pauline Salinas MD 17 g at 09/21/24 1058 senna-docusate (SENNA-S) 8.6-50 MG tablet 2 tablet 2 tablet Feeding Tube BID Pauline Salinas MD 2 tablet at 09/21/24 1058 thiamine mononitrate (VITAMIN B-1) tablet 100 mg 100 mg Feeding Tube Daily Pauline Salinas MD 100 mg at 09/21/24 1058 Notable labs are: Lab Results Component Value Date WBC 10.1 09/21/2024 HGB 8.1 (L) 09/21/2024 HCT 25.1 (L) 09/21/2024 PLT 223 09/21/2024 Lab Results Component Value Date AST 41 2024 ALT 83 (H) 2024 ALKPHOS 58 2024 BILITOT 1.8 (H) 2024 BILIDIR 1.2 (H) 2024 ALBUMIN 2.3 (L) 09/17/2024 PROT 7.1 2024 Lab Results Component Value Date CREAT 0.8 09/21/2024 Blood Cultures: Lab Results Component Value Date CULTURE Sterile after 5 days 09/16/2024 CULTURE Sterile after 5 days 09/16/2024 Urine Cultures: No results found for: CRYSUA , HYALNCSTUA , UROBILINOGEN , BILIUA , BLOODUA , CLARITYUA , COLORUA , UACOMMENT , GLUCU , KETONESUA , LEUKOCYTESUA , NITRITEUA , PHUA , PROTEINUA , RBCUA , SPECIMEN , SPECGRAVUA , SQEPIUA , WBCUA No components found for: WOUND C. Difficile: No results found for: CDIFFTOX , NAP1 Sign Pierre Michaud MD 09/21/2024 1:59 PM Pierre Michaud * Mike Espino MD - 09/21/2024 12:57 PM EDT Assessment: - Suspected RIGHT otitis externa/media complicated by mastoiditis & soft tissue abscess & orbital involvement (preseptal edema). - Concerns for non occlusive cavernous sinus thrombosis & internal jugular vein non occlusive filling defects Plan: - Agree with therapeutic anticoagulation -- Reasonable to continue heparin gtt while inpatient -- Consider DOAC vs. VKA for continued anticoagulation as outpatient (defer decision to primary team) -- Overall would consider at least 3-6 months of anticoagulation -- Would recommend repeating MRV at 3 month avery to assess for clot burden to determine whether anticoagulation can be discontinued or should be continued -- Recommend outpatient vascular neurology follow up to assist with decision making - Low threshold to obtain emergent CT head with acute neurological changes while on anticoagulation Mike Espino MD Neurohospitalist - [facility] [place], [facility] [employer] Operator of Neurology - [facility] [employer] * Denis Guzman, PT - 09/21/2024 12:40 PM EDT Physical Therapy Progress Note Assessment Summary: Patient seen for follow up PT session. Patient making gradual gains towards goals established at evaluation. Completing all mobility with Ax1 as detailed below. During this session, he was able to transition to EOB w/ Ax1. He demonstrates impaired postural control, requiring constant Ax1 to maintain upright sitting. Attempted to assist pt to transfer from EOB>chair, however pt required total assist to get 75% standing. Pt reporting fatigue and LE weakness, declining further mobilityprogressions and requesting return to supine in bed. Pt subsequently boosted and repositioned w/ Ax2. He denied symptoms of headache, dizziness, SOB, or N/V on room air. Pt left in bed, bed alarm on,call garcia in reach, all needs met. Patient requires ongoing skilled PT due to deviation from baseline mobility status as a result of acute illness and impairments. The goal of therapy will be to optimize function to minimize risk for future falls and hospital readmissions. Patient is a good rehab candidate and with ability to make functional gains and maximize independence with daily multidisciplinary therapy in conjunction with nursing home services at next level of care. If transitioning home, patient would require Home PT, hands on assistance with mobility, RW, wheelchair, maintain 1st level setup, commode, shower chair, raised toilet seat, ambulance lift into home,and wheelchair accessible housing Progress Towards Goals: (P) progress toward functional goals is gradual Outcome Measures: The Activity Measure for Post-Acute Care (AM-PAC) Basic Mobility Inpatient Short Form (6-clicks) simeon standardized measure used to quantify functional deficits in mobility. The total score of the measure ranges from 6-24. A higher score indicates a higher level of independence with functional mobility. Current [facility] Basic Mobility Score: (P) 9 Rehab Plan of Care PT will continue to follow pt during hospital stay to address identified impairments, maximize functional independence and facilitate safe discharge. PT plans to follow up with patient in 1-3 days oras able to progress bed mobility, transfers, gait/stability and stair negotiation. Pt to mobilize with nursing staff outside of PT treatment times to improve activity tolerance and functional mobility. -PT Recommendations for Staff: (P) Ax1 EOB, Egress as able -PT Frequency during Hospitalization: (P) 2-3 times/wk -Plan of Care Reviewed With: (P) patient Objective Data/Intervention Bed Mobility Assessment/Intervention: Supine<>sit with HOB elevated, Mod A x 1, with verbal cueing for sequencing, scooting to EOB to place feet on floor , and use of bedrail Transfers Assessment/Intervention: sit<>stand to 75% w/ RW and total Ax1 Activity Tolerance/Endurance Assessment/Intervention: Fair, pt reporting fatigue and LE weakness attempting to perform transfers, denies symptoms of headache, dizziness, SOB, or N/V on room air Education: Oriented to call garcia, explained role of PT, POC and discharge plan. Subjective (P) Maybe I shouldn't get up to the bathroom yet Flowsheet Data 09/21/24 1240 Physical Therapy Time and Intention PT Follow-Up Visit follow up treatment Mode of Treatment individual therapy;physical therapy Patient Effort good Symptoms Noted During/After Treatment fatigue General Information Patient/Family/Caregiver Comments/Observations Maybe I shouldn't get up to the bathroom yet General Observations of Patient Pt received supine in bed w/ HOB elevated, seen for PT treatment session Existing Precautions/Restrictions fall;other (see comments) (skin) Pain Scale: FACES Pre/Post-Treatment Pre/Posttreatment Pain Comment Pt denies pain Cognition Cognitive Status Impaired Safety Issues, Functional Mobility Impairments Affecting Function (Mobility) balance;cognition;endurance/activity tolerance;postural/trunk control;strength Activity Tolerance / Endurance Activity Tolerance / Endurance Fair, pt reporting fatigue and LE weakness attempting to perform transfers, denies symptoms of headache, dizziness, SOB, or N/V on room air Health Promotion Additional Documentation Coping (Group);Plan of Care Review (Group) Coping Observed Emotional State calm;cooperative Verbalized Emotional State acceptance Plan of Care Review Plan of Care Reviewed With patient Safety Safety WDL WDL Safety Factors wheels locked;upper side rails raised x 2;ID band on;call light in reach;bed in low position All Alarms alarm(s) activated and audible Enhanced Safety Measures bed alarm set Additional Documentation All Alarms (Row) Progressive Mobility Progressive Mobility Level Achieved Standing [facility] Basic Mobility Turning from your back to your side while in a flat bed without using bedrails? 3 Moving from lying on your back to sitting on the side of a flat bed without using bedrails? 2 Moving to and from a bed to a chair (including wheelchair)? 1 Standing up from a chair using your arms? 1 To walk in a hospital room? 1 Climbing 3-5 steps with a railing? 1 [facility] Basic Mobility Score 9 Therapy Assessment/Plan (PT) Rehab Potential (PT) good Criteria for Skilled Interventions Met (PT) yes;meets criteria Therapy Frequency (PT) 2-3 times/wk PT Recommendations for Staff Ax1 EOB, Egress as able Predicted Duration of Therapy Intervention (PT) LOS Planned Therapy Interventions (PT) balance training;bed mobility training;gait training;patient/family education;stair training;strengthening;transfer training Progress Summary (PT) Progress Toward Functional Goals (PT) progress toward functional goals is gradual Therapy Plan Review/Discharge Plan (PT) Therapy Plan Review (PT) evaluation/treatment results reviewed;care plan/treatment goals reviewed;risks/benefits reviewed;current/potential barriers reviewed;patient Sign: Denis Guzman PT * Kalina Ying LCSW - 09/21/2024 10:50 AM EDT SW reviewed record. Pt currently on Cb4. Noted to be off time and situation. SW following and would like to provide education re: Advance Directives once pt is appropriate. Pt's mother and sister directing medical care as needed. Signed: Kalina Ying LCSW * Denis Guzman, PT - 09/21/2024 10:40 AM EDT Physical Therapy Contact Note Chart reviewed prior to attempted Physical Therapy treatment session. Patient is declining for PT treatment session on this date secondary to fatigue. Will follow up for PT treatment session tomorrow52 as appropriate. Encourage mobility as tolerated/able. Flowsheet Data 09/21/24 1040 Physical Therapy Time and Intention PT Follow-Up Visit patient declined Mode of Treatment physical therapy Sign: Denis Guzman PT * Pierre Rosen, OT - 09/21/2024 10:39 AM EDT Occupational Therapy Contact Note Chart reviewed prior to attempted Occupational Therapy follow up. Patient declined desire for therapy on this date secondary to fatigue. Will follow up for occupational therapy as appropriate. Flowsheet Data 09/21/24 1039 OT Time and Intention OT Follow-Up Visit patient declined Mode of Treatment occupational therapy Session Not Performed patient/family declined treatment Comment, Session Not Performed Chart reviewed, patient received recumbent in bed, declined desire for therapy today. Attempted education/encouragement regarding benefit but declined desire at this time. Will follow up as appropriate. Sign: Pierre Rosen OT * Perri Farr MD - 09/21/2024 7:12 AM EDT INTERNAL MEDICINE PROGRESS NOTE Admit Date: 09/07/2024 4:10 PM Location: CB420/SW668-89 Code Status: Full Code Subjective Overnight Events: Non acute overnight events reported AM: Patient did not report any major complaints. Aox3 Assessment & Plan Assessment: 64 y.o. 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 Considered stable to downgrade to the medical floors on 09/20/2024. Plan: #Dysphagia [employer]IST[employer] EXPERT reevaluated him 09/21 deem safe for po intake Plan: -Remove DHT -Aspiration precautions -Modified diet level 5 #Hypernatremia resolving Received D5 infusion overnight. 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 After extubation primary team noted L facial droop and dysarthria, which notably worsened afternoon of 09/19. Strokework up was negative that day, On exam he has notable L sided subtle weakness and numbness, R tongue protrusion though this is somewhat confounded by significant swelling and bruising of the R tongue, and notable BUE/BLE action tremor. S/p antibiotic therapy Plan: - monitor fever and WBC curves - Continue heparin drip while inpatient for therapeutic anticoagulation at this time - Low threshold to obtain emergent CT head with acute neurological changes while on anticoagulation # Normocytic anemia #Thrombocytopenia secondary to ITP - resolved he has received IVIG 5 doses. Anticoagulation was deferred. Plan: - Monitor for signs of bleeding - At above threshold for transfusion Hb>7 - Folic acid 1 mg daily Resolved/non active medical conditions: # CLINT-resolved # Hyperkalemia-resolved # History of nonsustained VT-resolved #Sinus tachycardia - Maintain patient on telemetry - Continue lopressor 50 mg bid # Acute hypoxic respiratory failure secondary to ARDS with suspected diffuse alveolar hemorrhage-resolved Bronchoscopy on 09/08; findings consistent with DAH; cultures negative to date - continue solumedrol to 40mg daily, bryce tomorrow # Right-sided otomastoiditis resolved # Left eye lid swelling and concern for blindness CT head showed findings concerning for R otitis externa/media with soft tissue abscess and mastoiditis. MRI brain showed enlargement of extraocular muscles on the left, mild edema in the intra/extraconal fat and loss of normal flow void in the superior ophthalmic vein as well as mild enlargement, left preseptal soft tissue edema overall concerning for thrombosis of the superior cerebral vein. MRVbrain showed normal flow related enhancement in the cortical and dural venous sinuses. Images were reviewed with IR and no thrombosis was appreciated. At he was continued on empiric antibiotics with meropenem, vancomycin, caspofungin for GNR bacteremia. Upon ENT evaluation he was found to have right sided otitis externa and media. Ophthalmology evaluation on 09/07 noted chemosis, proptosis and ophthalmoplegia. 09/07 culture of his ear is growing yeast and Bordetella trematum. off meropenem 09/19. - ENT and ophthalmology were consulted, #Severe aortic stenosis - [facility] cardiology were consulted for further workup of severe aortic stenosis, deferred given patient's unstable status at the time, with recommendation to reconsider when patient is more stable versus outpatient follow-up Dispo: Medical Floors Diet: Modified diet Tele: - Early: none. Indication for early discussed on rounds. If determined that patient no longer requires a early catheter, will remove. Lines: piv VTE: VTE Time Out IMPROVE SCORE: 2 (09/07/2024 5:40 PM) Interpretation - High Risk Chemical Prophylaxis heparin (porcine) IV infusion 25,000 units in 500 mL 0.45% NaCl (premix) Intravenous Continuous heparin (porcine) 1000 unit/mL injection 2,800 Units Intravenous Every 6 hours PRN Mechanical Prophylaxis SCDs are ordered - Bilateral (Knee High) Antibiotics: final plan per attending attestation Discussed with Dr. Zuniga. Perri Farr MD [facility] Internal Medicine Internal Medicine PGY-1 Available on [place] Text Objective Physical Exam Patient Vitals for the past 8 hrs: BP Temp Temp src Pulse Resp SpO2 09/21/24 0532 118/60 96.9 ??F (36.1 ??C) Tympanic 82 18 97 % 09/20/24 2353 120/70 97 ??F (36.1 ??C) Tympanic 76 18 96 % Physical Exam Constitutional: General: He is not in acute distress. Appearance: He is not diaphoretic. Eyes: Comments: Left sided vision loss with proptosis on same side Cardiovascular: Rate and Rhythm: Normal rate and regular rhythm. Heart sounds: Murmur heard. Pulmonary: Effort: Pulmonary effort is normal. No respiratory distress. Breath sounds: No wheezing or rales. Abdominal: General: Bowel sounds are normal. Palpations: Abdomen is soft. Tenderness: There is no abdominal tenderness. Musculoskeletal: Right lower leg: No edema. Left lower leg: No edema. Skin: General: Skin is warm. Capillary Refill: Capillary refill takes less than 2 seconds. Neurological: Mental Status: He is alert and oriented to person, place, and time. Mental status is at baseline. Cranial Nerves: Facial asymmetry present. Motor: Weakness and tremor present. Comments: Tremor RUE, tongue protrusion. For limbs 5/5 gross strength Intake/Output Summary (Last 24 hours) at 09/21/2024 0712 Last data filed at 09/21/2024 0400 Gross per 24 hour Intake 489.53 ml Output 1200 ml Net -710.47 ml Relevant data reviewed: Lab work: Results from last 7 days Lab Units 09/21/24 0403 09/21/24 0022 SODIUM mmol/L -- 149* POTASSIUM mmol/L -- 4.1 CHLORIDE mmol/L -- 120* CO2 mmol/L -- 20* BUN mg/dL -- 40* CREATININE mg/dL -- 0.8 EGFR -- >90 GLUCOSE mg/dL -- 102* GLUCOSE, POC mg/dL 124* -- CALCIUM mg/dL -- 7.5* Results from last 7 days Lab Units 09/21/24 0515 WHITE BLOOD CELL COUNT Thou/uL 10.1 HEMOGLOBIN g/dL 8.1* HEMATOCRIT % 25.1* PLATELET COUNT Thou/uL 223 Lab Results Component Value Date LACTIC 1.9 09/07/2024 Lab Results Component Value Date PROBNP 486 (H) 2024 Lab Results Component Value Date ALBUMIN 2.3 (L) 09/17/2024 Lab Results Component Value Date PHA 7.50 (H) 09/18/2024 PCO2 30 (L) 09/18/2024 PO2 107 (H) 09/18/2024 Results from last 7 days Lab Units 09/21/24 0515 WHITE BLOOD CELL COUNT Thou/uL 10.1 HEMOGLOBIN g/dL 8.1* HEMATOCRIT % 25.1* PLATELET COUNT Thou/uL 223 Results from last 7 days Lab Units 09/16/24 1707 PROTHROMBIN TIME (PT) seconds 14.1* APTT seconds 24* INR 1.2 Imaging Studies: XR Abdomen 1 view Final Result Dobbhoff tube subdiaphragmatic with the tip overlying the distal duodenum. Interpreted by: Jimbo Licona MD [facility] I personally reviewed the images and the resident's preliminary report and AGREE with the report as it is now presented (RADPAL1). MRI Brain w w/o contrast Final Result 1. No acute territorial infarction or parenchymal hemorrhage. 2. 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 3. Improving inflammatory changes left orbit and face. 4. See details above. CTA Head and Neck W/O and With IV Contrast Final Result 1. No intracranial hemorrhage or large acute [...] infectious/inflammatory process. Interpreted by: Jason Lundberg DO [facility] Attending addendum: There is moderate atherosclerotic plaque [...] and made the MINOR addendum above (RADPAL2). MRV Head w w/o contrast Final Result Redemonstration of nonocclusive filling defects within the proximal internal jugular veins. No other partial or complete occlusion. MRI Brain w w/o contrast Final Result 1. Similar pattern of inflammatory change (better described on CTA head and neck performed same day) about the left orbit with thrombus within the enlarged left superior ophthalmic vein, nonocclusive thrombus in the cavernous sinus bilaterally and venous structures about the middle cranial fossa as noted above (not conspicuous on CTA head and neck), with nonocclusive thrombus bilateral internal jugular veins, etiology is uncertain. 2. Hyperintense signal along the sulci of the frontoparietal and occipital lobes without enhancement. 3. Nonenhancing debris demonstrating diffusion restriction and slight FLAIR hyperintensity within the occipital horns with trace hemosiderin. 4. Right-sided otomastoiditis. 5. Right temporal scalp and temporalis contusion. Uncertain etiology of Constellation of findings as above. Hematology oncology evaluation workup is recommended with CSF sampling also recommended. Differential considerations are broad. Vas Venous Duplex Arm (DVT) Final Result CTA Head and Neck W/O and With IV Contrast Final Result 1. Similar appearance of soft tissue changes about the left orbit without definitive filling defect within the left cavernous sinus. 2. No acute intracranial process. 3.Intact anterior and posterior circulations without dissection, major branch occlusion, aneurysm, or vascular malformation. 4. No dissection or high grade stenosis of the carotid or vertebral systems. 5. Scattered groundglass opacities and pneumatoceles imaged lungs with subsegmental foci of consolidation, correlate clinically, infectious versus inflammatory. This CT examination was performed using dose optimization techniques as appropriate, variously including the following: * Automated exposure control * Adjustment of mA and/or kV according to patient size (this includes techniques or standardized protocols for targeted exams where dose is matched to indication/reason for exam; i.e. extremities or head) * Use of iterative reconstruction technique Echocardiogram (TTE) Comprehensive (Contrast PRN) Final Result CT Head w/o contrast Final Result 1. No CT evidence of acute territorial infarction or acute intracanal hemorrhage. Limited evaluation of the brainstem. Please note, CT is not sensitive to take small acute ischemic infarct. MR of the brain without contrast is recommended for further assessment. 2. Mild to moderate chronic white matter small as ischemic changes. CT Thorax w/o contrast Final Result 1. Diffuse interlobular septal thickening, with scattered [...] 3.1 cm, may represent pericardial fluid/pericardial cyst. XR Chest 1 view-Portable Final Result Mild interval improvement in bilateral airspace opacities. XR Chest 1 view-Portable Final Result Unchanged diffuse bilateral interstitial and alveolar opacification. Vas Venous Duplex - Leg Final Result GUILLE Archive for reference only CT Final Result GUILLE Archive for reference only CT Final Result GUILLE Archive for reference only MR Final Result GUILLE Archive for reference only CR Final Result GUILLE Archive for reference only CT Final Result GUILLE Archive for reference only MR Final Result GUILLE Archive for reference only CR Final Result GUILLE Archive for reference only CT Final Result XR Chest 1 view-Portable Final Result 1. Markedly worsened diffuse bilateral interstitial and airspace opacification involving the entire lungs bilaterally. 2. Heart and mediastinum are widened, this is exaggerated by AP technique and unchanged. CT IAC w/contrast (Results Pending) FL Modified barium swallow w/speech (Results Pending) Cosigned by Kay Zuniga DO at 09/21/2024 8:36 PM EDT Associated attestation - Kay Zuniga DO - 09/21/2024 8:36 PM EDT Teaching Attending Inpatient Attestation: I have personally interviewed and examined the patient and reviewed Dr. Mykel Farr's note. 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 He is clinically stable today, afebrile, hemodynamically stable and on room air. Antibiotic course has recently completed. His remaining issue is nutrition plan with his dysphagia. He was cleared for diet today by speech. Will need to monitor caloric intake as we transition off tube feeds. Given stability and no further need for advanced therapies, plan to initiate transfer back to [facility]. Anticipate patient will eventually need STR placement post discharge. Sign: KAY ZUNIGA DO 09/21/2024 4:34 PM * Livan Rahman MD - 09/20/2024 10:58 PM EDT Images from the original note were not included. NEUROLOGY CONSULT SERVICE FOLLOW-UP NOTE Patient: Mariah Masterson Date of : 1960 Date of Follow-Up: 09/20/24 Assessment & Plan Assessment: Mariah Masterson is a 63 y.o. right-handed male with past medical history of depression (on fluoxetine and risperidone), alcohol abuse (remission x 15 years), smoking (couple packs per week x 25 years)who had symptom onset on 09/02 with headache, lethargy and right ear pain with progressive vision loss in left eye and presented to [facility] on 09/[facility] as a transfer from [facility] due to altered mental status, right ear pain, left eye/tongue swelling and concern for left cavernous sinus thrombosis. At [facility], CT head showed findings concerning for R otitis externa/media with soft tissue abscess and mastoiditis. MRI brain showed enlargement of extraocular muscles on the left, mild edema in the intra/extraconal fat and loss of normal flow void in the superior ophthalmic vein as well as mild enlargement, left preseptal soft tissue edema overall concerning for thrombosis of the superior cerebral vein. He was transferred to for further management of cavernous sinus thrombus. At he was continued on empiric antibiotics for GNR bacteremia. Upon ENT evaluation he was found to have right sided otitis externa and media but deemed not a surgical candidate given no clinical evidence of mastoiditis. Ophthalmology evaluation on 09/07 noted chemosis, proptosis and ophthalmoplegia, with left eye VA no light perception, findings concerning for cavernous sinus thrombosis, with possible disrupted blood flow/involvement of orbital apex or posterior ischemic optic neuropathy explaining visual impairment in his left eye. 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 Anticoagulation was deferred at that point. MRI brain w wo contrast was repeated at on 09/12 which showed DWI/FLAIRhyperintense fluid in bilateral lateral ventricles as well as sulcal FLAIR hyperintensity suggestive of meningitis with ventriculitis, L superior ophthalmic vein occlusion, nonocclusive bilateral cave rnous sinus thrombosis as well as nonocclusive thrombi in bilateral IJV which were likely in the setting of underlying infection. On 09/15 patient was noted to have RUE twitching lasting ~ 1 minute. Routine EEG which captured these events had no EEG correlate. LTM EEG for 2 days from 09/16- 09/17 was negative for seizures. MRV was repeated upon neurology recommendation to determine if anticoagulation would be safe/indicated and redemonstarted nonocclusive filling defect in bilateral IJV and L transverse sinus indicative of nonocclusive venous thrombus in the setting of meningitis. He was initiated on low dose heparin drip without bolus on 09/16. Patient's mental status gradually improved, and he was noted to be following commands, nodding yes/no appropriately and was extubated on 09/18 to NC now weaned down to room air. After extubation primary team noted L facial droop and dysarthria, which worsened afternoon of 09/19. Patient had been therapeutic on heparin drip. STAT CTA head and neck showed no LVO, acute ischemia or hemorrhage. MRI brain w wo contrast was repeated on 09/20 which showed stable findings on nonocclusive thrombi in bilateral IJV and L transverse sinus with improvement in soft tissue changes. There is notable GRE hypointense signal near the R medulla at the exit of CN 9,10,11,12. On exam he has R tongue protrusion though this is somewhat confounded by swelling the R tongue, and notable BUE/BLE action tremor. He was evaluated by [employer] on 09/19 with concern for oropharyngeal dysphagia. On review of H&P notes appears tongue swelling was present on initial presentation to [facility]. Unclear cause of dysphagia, but possibly cranial nerve palsy as a sequelae of meningitis. There is limited data on anticoagulation for cerebral venous thrombus in the setting of meningitis to provide recommendations. Meningitis with ventriculitis (improving) Superior ophthalmic vein thrombosis Nonocclusive bilateral cavernous sinus thrombosis Nonocclusive IJV thrombus Plan: - Continue low dose heparin drip (anti-Xa 0.3-0.5) while inpatient, can transition to DOAC vs VKA for 3-6 months of anticoagulation - Recommend repeating MRV brain w wo contrast in 3 months to assess clot burden - Follow up with vascular neurology/stroke clinic outpatient - STAT CT head for any acute neurological exam change - Recommendations as per [employer] regarding PO intake - No indication for antiseizure medications The Neurology Consult Service will sign-off at this time. Please contact our team with any additional questions or concerns regarding the care of this patient. Thank you for this consultation and for allowing us to participate in the care of this patient. Discussed with on-call neurology attending: Mike Espino MD Chief Complaint concern for left cavernous sinus thrombosis Interval History MRI brain completed showed stable findings on nonocclusive thrombi in bilateral IJV and L transverse sinus with improvement in soft tissue changes. There is notable GRE hypointense signal near the R medulla at the exit of CN 9,10,11,12. He denied headache, or neck pain, but reported shoulder pain. Review of Systems Review of Systems: as above in HPI Medications Current Medications[1] Objective PHYSICAL EXAMINATION EXAMINATION: General: Well appearing in no distress. Neck is supple. Distal extremities are warm and well perfused. Mood is good and affect appropriate Cognitive status and Language: Alert, oriented to self, month, year, place Able to name and repeat Severe dysarthria Attention and concentration are appropriate Cranial nerves: R pupil 4-2, brisk. L pupil dilated, nonreactive. Left eye ptosis, chemosis, slight proptosis, conjunctival injection Extraocular movements are limited on the left though able to adduct, abduct, elevate and depress eye, full on right No notable orbicularis oculi or frontalis asymmetry L facial asymmetry at rest, no asymmetry noted on activation Tongue protrudes to the right - notable R tongue swelling and bruising, reducing Facial sensation is intact to light touch Hearing is intact grossly Motor Function: LUE: 5/5 proximal and distal RUE: 5/5 proximal and distal LLE: 5/5 proximal and distal RLE: 5/5 proximal and distal Bulk and tone: normal Sensation: Sensation is intact to light touch on all extremities. Coordination: Action/intention tremor RUE > LUE and BLE Reflexes: 2+ and symmetric in the biceps, brachioradialis, knee, Absent ankle Plantar response is extensor bilaterally. Gait: Deferred. Sign: Livan Kale PGY-2 [facility] Neurology Available on [place]-Text 09/20/2024 10:58 PM [1] Current Facility-Administered Medications Medication Dose Route Frequency Provider Last Rate Last Admin dextrose 5 % (D5W) infusion 50 mL/hr Intravenous Continuous Britton Rodriguez PA-C 50 mL/hr at 09/20/242034 50 mL/hr at 09/20/242034 [Provider Held] acetaminophen (TYLENOL) tablet 975 mg 975 mg NG Tube Q6H PRN Pauline Salinas MD bisacodyl (DULCOLAX) suppository 10 mg 10 mg Rectal Daily PRN Britton Rodriguez PA-C chlorhexidine (PERIDEX) 0.12 % oral solution 15 mL 15 mL Mouth/Throat BID Britton Rodriguez PA-C 15 mL at 09/20/24 2141 chlorhexidine gluconate 2 % wipes - urethral catheter CHG application Topical Daily Britton Narvaez PA-C 1 each at 09/20/24 0929 glucose (GLUTOSE 15) 40 % oral gel 37.5 g 1 Tube Oral Q15 Min PRN Britton Rodriguez PA-C Or glucose (GLUTOSE 15) 40 % oral gel 75 g 2 Tube Oral Q15 Min PRN Britton Rodriguez PA-C Or dextrose 50 % solution 12.5 g 12.5 g Intravenous Q15 Min PRN Britton Rodriguez PA-C Or dextrose 50 % solution 25 g 25 g Intravenous Q15 Min PRN Britton Rodriguez PA-C Or glucagon (GLUCAGEN) injection 1 mg 1 mg Intramuscular Daily PRN Britton Rodriguez PA-C FLUoxetine (PROzac) capsule 40 mg 40 mg Oral Daily Pauline Salinas MD 40 mg at 09/18/24 1034 folic acid (FOLVITE) tablet 1 mg 1 mg Feeding Tube Daily Pauline Salinas MD 1 mg at 09/18/24 0818 heparin (porcine) 1000 unit/mL injection 2,800 Units 30 Units/kg Intravenous Q6H PRN Britton Rodriguez PA-C heparin (porcine) IV infusion 25,000 units in 500 mL 0.45% NaCl (premix) 10.8 Units/kg/hr Intravenous Continuous Britton Rodriguez PA-C 21.924 mL/hr at 09/20/24 1810 11.8 Units/kg/hr at 09/20/24 1810 insulin lispro (HumaLOG/ADMELOG) 100 units/mL injection 1-6 Units 1-6 Units Subcutaneous Q[facility]H [facility] Britton Rodriguez PA-C 1 Units at 09/20/24 1227 lactulose (ENULOSE) 10 gm/15 mL solution 20 g 20 g OG Tube BID Pauline Salinas MD 20 g at 031 methylPREDNISolone sodium succinate (SOLU-Medrol) injection 40 mg 40 mg Intravenous Q24H [facility] Britton Rodriguez PA-C 40 mg at 09/20/24 0926 metoPROLOL TARTRATE (LOPRESSOR) tablet 50 mg 50 mg Feeding Tube Q12H [facility] Pauline Salinas MD 50 mg at 09/20/24 214 multivitamin with minerals (CEROVITE) liquid 15 mL 15 mL Feeding Tube Daily Pauline Salinas MD 15 mL at 09/18/24 0819 naloxone (NARCAN) 0.4 mg/mL injection 0.4 mg 0.4 mg Intravenous Q5 Min PRN Britton Rodriguez PA-C nicotine (NICODERM CQ) 21 MG/24HR patch 1 patch 1 patch Transdermal Daily Britton Rodriguez PA-C 1 patch at 09/20/24 0927 nystatin (MYCOSTATIN) 487338 UNIT/ML suspension 500,000 Units 500,000 Units Oral 4x Daily Britton Rodriguez PA-C 500,000 Units at 09/20/24 2141 polyethylene glycol (miraLAx) packet 17 g 17 g Feeding Tube BID Pauline Salinas MD 17 g at 09/18/24 0818 senna-docusate (SENNA-S) 8.6-50 MG tablet 2 tablet 2 tablet Feeding Tube BID Pauline Salinas MD 2 tablet at 09/18/24 0818 thiamine mononitrate (VITAMIN B-1) tablet 100 mg 100 mg Feeding Tube Daily Pauline Salinas MD 100 mg at 09/18/24 0818 Cosigned by Mike Espino MD at 09/22/2024 9:03 AM EDT Associated attestation - Mike Espino MD - 09/22/2024 9:03 AM EDT I have personally interviewed and examined the patient and reviewed the note written by Livan Rahman MD. I agree with the history, exam, assessment and plan as detailed in the resident/fellow's note. Assessment: - Suspected RIGHT otitis externa/media complicated by mastoiditis & soft tissue abscess & orbital involvement (preseptal edema). - Concerns for non occlusive cavernous sinus thrombosis & internal jugular vein non occlusive filling defects Plan: - Agree with therapeutic anticoagulation -- Reasonable to continue heparin gtt while inpatient -- Consider DOAC vs. VKA for continued anticoagulation as outpatient (defer decision to primary team) -- Overall would consider at least 3-6 months of anticoagulation -- Would recommend repeating MRV at 3 month avery to assess for clot burden to determine whether anticoagulation can be discontinued or should be continued -- Recommend outpatient vascular neurology follow up to assist with decision making - Low threshold to obtain emergent CT head with acute neurological changes while on anticoagulation Mike Espino MD Neurohospitalist - [facility] [place], [facility] [employer] Operator of Neurology - [facility] [employer] * Pierre Michaud MD - 09/20/2024 12:54 PM EDT [facility] Progress Note Assessment & Plan Assessment Alcohol use disorder in remission for 15 years Tobacco use disorder with a [id number] history Presenting with altered mental status, left eye swelling, tongue swelling and severe right ear pain MRIs were done and the patient was sent down here It looks like he has a cavernous sinus thrombosis. 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 Bronchoscopy was done 417 culture of his ear is growing yeast and Bordetella trematum He remains on the ventilator Repeat MRI is about the same He is awake alert and following He is extubated He is speaking although somewhat difficult to understand Temperature is 100.2 with a white count of 12.6 and a creatinine of 0.9 Plan We took him off the meropenem yesterday Subjective No shortness of breath or chest pain Objective Last Vitals Pulse:(!) 109,Resp:(!) 27,BP:(!) 162/76,SpO2:97 %,Weight:88.7 kg (195 lb 8.8 oz) Temp Last 24 hrs: Temp Min: 95.6 ??F (35.3 ??C) Max: 100.2 ??F (37.9 ??C) Last temp: 100.2 ??F (37.9 ??C) (Tympanic) Physical Exam Lungs: Clear Cardiac: RRR Abdomen: +BS Soft Nontender Skin:No rash No skin lesions Intake/Output Summary (Last 24 hours) at 09/20/2024 1255 Last data filed at 09/20/2024 1200 Gross per 24 hour Intake 1687.34 ml Output 1825 ml Net -137.66 ml Relevant data reviewed MEDICATIONS Current Facility-Administered Medications Medication Dose Route Frequency Provider Last Rate Last Admin dextrose 5 % (D5W) infusion 50 mL/hr Intravenous Continuous Carlitos Treviño PA-C 50 mL/hr at 09/20/24 1200 50 mL/hr at 09/20/24 1200 [Provider Held] acetaminophen (TYLENOL) tablet 975 mg 975 mg Oral Q6H PRN Daiana Guzman PA-C 975 mg at 09/18/24 1030 bisacodyl (DULCOLAX) suppository 10 mg 10 mg Rectal Daily PRN Marie Chamberlain PA-C chlorhexidine (PERIDEX) 0.12 % oral solution 15 mL 15 mL Mouth/Throat BID Korina Lai PA-C 15 mL at 09/20/24 0929 chlorhexidine gluconate 2 % wipes - urethral catheter CHG application Topical Daily Kelly Rodriguez MD 1 each at 09/20/24 0929 glucose (GLUTOSE 15) 40 % oral gel 37.5 g 1 Tube Oral Q15 Min PRN Britton Rodriguez PA-C Or glucose (GLUTOSE 15) 40 % oral gel 75 g 2 Tube Oral Q15 Min PRN Britton Rodriguez PA-C Or dextrose 50 % solution 12.5 g 12.5 g Intravenous Q15 Min PRN Britton Rodriguez PA-C Or dextrose 50 % solution 25 g 25 g Intravenous Q15 Min PRN Britton Rodriguez PA-C Or glucagon (GLUCAGEN) injection 1 mg 1 mg Intramuscular Daily PRN Britton Rodriguez PA-C [Provider Held] FLUoxetine (PROzac) capsule 40 mg 40 mg Oral Daily Daiana Guzman PA-C 40 mg at 09/18/24 1034 [Provider Held] folic acid (FOLVITE) tablet 1 mg 1 mg Feeding Tube Daily Shira Bonilla PA-C 1 mg at09/18/24 0818 folic acid injection 1 mg/0.2 mL syringe (premix) 1 mg Intravenous Daily Amparo Merino PA-C 1 mgat 09/20/24 1108 heparin (porcine) 1000 unit/mL injection 2,800 Units 30 Units/kg Intravenous Q6H PRN Daiana Guzman PA-C heparin (porcine) IV infusion 25,000 units in 500 mL 0.45% NaCl (premix) 10.8 Units/kg/hr Intravenous Continuous Daiana Guzman PA-C 21.924 mL/hr at 09/20/24 1200 11.8 Units/kg/hr at 09/20/24 1200 HYDROmorphone (DILAUDID) injection 0.5 mg 0.5 mg Intravenous Once Amparo Merino PA-C insulin lispro (HumaLOG/ADMELOG) 100 units/mL injection 1-6 Units 1-6 Units Subcutaneous Q4H [facility] Britton Rodriguez PA-C 1 Units at 09/20/24 1227 [Provider Held] lactulose (ENULOSE) 10 gm/15 mL solution 20 g 20 g OG Tube BID Shira Bonilla PA-C 20 g at 09/18/24 1031 methylPREDNISolone sodium succinate (SOLU-Medrol) injection 40 mg 40 mg Intravenous Q24H [facility] Shira Bonilla PA-C 40 mg at 09/20/24 0926 [Provider Held] metoPROLOL TARTRATE (LOPRESSOR) tablet 50 mg 50 mg Feeding Tube Q12H [facility] KRISTA Modi 50 mg at 09/18/24 0817 [Provider Held] multivitamin with minerals (CEROVITE) liquid 15 mL 15 mL Feeding Tube Daily Shira Bonilla PA-C 15 mL at 09/18/24 0819 naloxone (NARCAN) 0.4 mg/mL injection 0.4 mg 0.4 mg Intravenous Q5 Min PRN Marie Chamberlain PA-C nicotine (NICODERM CQ) 21 MG/24HR patch 1 patch 1 patch Transdermal Daily KRISTA Bedolla 1patch at 09/20/24 0927 nystatin (MYCOSTATIN) [id number] UNIT/ML suspension 500,000 Units 500,000 Units Oral 4x Daily Shira Bonilla PA-C 500,000 Units at 09/20/24 1227 [Provider Held] polyethylene glycol (miraLAx) packet 17 g 17 g Feeding Tube BID Marie Chamberlain PA-C 17 g at 09/18/24 0818 [Provider Held] senna-docusate (SENNA-S) 8.6-50 MG tablet 2 tablet 2 tablet Feeding Tube BID Marie Chamberlain PA-C 2 tablet at 09/18/24 0818 thiamine (VITAMIN B-1) injection 100 mg 100 mg Intravenous Daily Amparo Merino PA-C 100 mg at 09/20/24 0926 [Provider Held] thiamine mononitrate (VITAMIN B-1) tablet 100 mg 100 mg Feeding Tube Daily Shira Bonilla PA-C 100 mg at 09/18/24 0818 Notable labs are: Lab Results Component Value Date WBC 12.6 (H) 09/19/2024 HGB 8.1 (L) 09/19/2024 HCT 25.6 (L) 09/19/2024 PLT 269 09/19/2024 Lab Results Component Value Date AST 41 2024 ALT 83 (H) 2024 ALKPHOS 58 2024 BILITOT 1.8 (H) 2024 BILIDIR 1.2 (H) 2024 ALBUMIN 2.3 (L) 09/17/2024 PROT 7.1 2024 Lab Results Component Value Date CREAT 0.9 09/19/2024 Blood Cultures: Lab Results Component Value Date CULTURE Sterile after 4 days 09/16/2024 CULTURE Sterile after 4 days 09/16/2024 Urine Cultures: No results found for: CRYSUA , HYALNCSTUA , UROBILINOGEN , BILIUA , BLOODUA , CLARITYUA , COLORUA , UACOMMENT , GLUCU , KETONESUA , LEUKOCYTESUA , NITRITEUA , PHUA , PROTEINUA , RBCUA , SPECIMEN , SPECGRAVUA , SQEPIUA , WBCUA No components found for: WOUND C. Difficile: No results found for: CDIFFTOX , NAP1 Sign Pierre Michaud MD 09/20/2024 12:55 PM Pierre Michaud * [facility] [facility] - 09/20/2024 10:00 AM EDT Speech Pathology Dysphagia Treatment Note IMPRESSION & PLAN Dysphagia; acute Swallow function/oral deficits appear slightly improved; pt now a candidate for instrumental assessment FEES this afternoon; further recommendations to follow Diet Recommendations: Solid Consistency: NPO Liquid Consistency: Ice Chips sparingly Medication Administration: via non-oral route Supervision/Assistance: 1:1 Supervision Oral Care: q6hr with non-vent oral care kit [employer] Therapy Plan: FEES SUBJECTIVE Interval Events: MRI today: 1. No acute territorial infarction or parenchymal hemorrhage. 2. 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 3. Improving inflammatory changes left orbit and Pt received upright in bed, alert, in no acute distress. Dysarthria appear slightly improved. Improved ROM of lingual and labial surfaces, LLQ facial weakness presents. Current Status Cognition: Follows commands Pain: No pain reported Diet: NPO Respiratory Status: Room air Oral Hygiene: Needs improvement and Dry oral mucosa Infection Monitoring: No acute infectious markers OBJECTIVE Therapeutic PO Trials Liquids Presented: Ice Chips and small tsp of water x2 Solids Presented: Deferred to FEES Oral Phase: Reduced labial seal, Decreased bolus cohesion, Slow oral transit Pharyngeal Phase: Suspect impairment, Clinical s/s of pharyngeal dysfunction Clinical s/s of Dysphagia/Aspiration: Delayed cough Esophageal Phase: None ASSESSMENT Progress: Gradual Plan of care discussed with patient, Provider, and RN Preferred Language: Barbadian MONICA Darling 09/20/24 * Britton Rodriguez PA-C - 09/20/2024 6:59 AM EDT Critical Care Progress Note Subjective Overnight events: - repeat MRI brain performed overnight per neuro recs, read pending - given 0.5 mg dilaudid prior to procedure 2/2 concern of movement AM Update: MRI Brain 09/20: IMPRESSION: 1. No acute territorial infarction or parenchymal hemorrhage. 2. 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 3. Improving inflammatory changes left orbit and face. 4. See details above. Assessment & Plan Assessment: Mariah Masterson is a 63 year old male with PMHx of depression, alcohol abuse, tobacco use who presented to OSH for concern of left eye swelling, tongue swelling, right ear pain, and decreased visual acuity of left eye. He was ultimately transferred to for ENT, ophthalmology, ID, neuro consults. He was admitted for further management of cavernous sinus thrombosis with course complicated by worsening hypoxia with concern for diffuse alveolar hemorrhage in the setting of ARDS. MRI with meningitis/encephalitis. Principal Problem: Acute cerebral venous sinus thrombosis LOS: 13 days Plan by system Neuro: Cavernous sinus thrombosis, bilateral non occlusive thrombus of IJVs, likely meningitis/encephalitis, acute metabolic encephalopathy, Hx depression, tobacco use, ETOH use (in remission 15 years) - Mental status: Alert, PERRLA, eyes open, intermittently answers questions appropriately. Significant L sided facial droop, able to raise eyebrows bilaterally. Weakly follows commands to squeeze fingers equally bilaterally, weakly moving bialteral LE equally. Tremulous with efforts to move extremities bilaterally - CTA head and neck STAT was ordered 09/19 06/25 to L sided facial droop. No acute findings. Repeat MRI brain was ordered and performed overnight as prior imaging per neuro team yielded no clear focal cause of L sided facial droop, read pending - Continue tylenol 975 mg q6h PRN for fevers (x0 overnight) - Continue with nicotine patch - active smoker - Holding home risperidone 0.5 BID w/ recent AMS and lethargy - Continue home Fluoxetine 40mg daily when can take PO - s/p LTM, negative for seizures - SW consulted for help with HCR (daughter next of kin but estranged 30 years; mom and sister in chart) - s/p dilaudid gtt, dilaudid PRN, haldol, seroquel - Neuro re-engaged - they believe MRI shows ventriculitis with pus in the ventricles likely representing meningitis. Discussed with ID and no LP needed as already covered on meropenem, low-dose heparin drip recommended for bilateral IJ thrombus on MRV STAT CTA HEAD AND NECK 09/19 IMPRESSION: 1. No intracranial hemorrhage or large [...] apices, favored to reflect resolving infectious/inflammatory process. LTM: Monitoring Day 1: 09/16/2024 - Nonspecific, moderate to severe encephalopathy. Monitoring Day 2: 09/17/2024 - Nonspecific, moderate to severe encephalopathy. MRV 09/16: Redemonstration of nonocclusive filling defects within the proximal internal jugular veins. No other partial or complete occlusion. MRI Brain (09/13): 1. Similar pattern of inflammatory change (better described on CTA head and neck performed same day) about the left orbit with thrombus within the enlarged left superior ophthalmic vein, nonocclusive thrombus in the cavernous sinus bilaterally and venous structures about the middle cranial fossa as noted above (not conspicuous on CTA head and neck), with nonocclusive thrombus bilateral internal jugular veins, etiology is uncertain. 2. Hyperintense signal along the sulci of the frontoparietal and occipital lobes without enhancement. 3. Nonenhancing debris demonstrating diffusion restriction and slight FLAIR hyperintensity within the occipital horns with trace hemosiderin. 4. Right-sided otomastoiditis. 5. Right temporal scalp and temporalis contusion. ENT: Right sided otomastoiditis, left eye swelling (improving), - Ear culture (09/07): + rubi parapsilosis, bordetella species - S/p ciprodex otic drops, hydrocortisone-aceitic acid otic drops - ENT following - reviewed most recent imaging but no clinical evidence of mastoiditis so no changes to plan - Ophthalmology consulted, given no light perception in left eye, poor visual prognosis; no acute interventions recommended to help with left eye vision, no evidence of R eye involvement. Left visionloss maybe likely to thrombosis disrupting blood-flow or involvement of the orbital apex or posterior ischemic optic neuropathy given unremarkable fundus exam, normal IOP () and non- edematous opticnerve Behavioral/Sedation scales CAM-ICU Delirium Present: Negative Dwyer Agitation Sedation Scale (RASS) / Modified RASS: 0-->alert and calm Resp: Acute hypoxic respiratory failure 2/2 ARDS (improved), concern for diffuse alveolar hemorrhage (improved) - SpO2 96-98% on room air - intubated 09/08 - 09/19 - VBG 09/18 7.5/ - continue solumedrol to 40mg daily - Bronchoscopy on 09/08; findings consistent with DAH; cultures negative to date Vasculitis labs: - Glomerular basement membrane Ab negative - Lupus anticoagulant not detected -CCP Ab negative, dsDNA negative, complement C3 85, C4 10 (L) - myeloperoxidase Ab, proteinase-3 Ab, ANCA negative - RF pending CV: non- sustained VT (resolved), sinus tachycardia, hypertension (improved), severe aortic stenosis - HR 100s to 110s, SBPs 130s - 150s - HS trop (09/07): 22 - ProBNP: 486 (2219) - EKG (09/15): Sinus tachycardia with PVCs, RBBB, Qtc 494 - holding home metoprolol while NPO, will resume when enteral access obtained - [facility] cardiology consulted for new severe aortic stenosis - signed off until more stable ECHO 09/11/24: Left ventricular systolic function is hyperdynamic. The quantitative EF by 2D Stark biplane is 80%. Right ventricular systolic function is normal. There is likely severe aortic stenosis based on gradients and velocities. The continuity derived aortic valve area is less reliable in the setting of poor spectral signal. The peak velocity is 4.3 m/s and mean gradient is 45.7 mmHg. There is progressive calcific mitral stenosis. There is a mean transmitral gradient of 5 mmHg at a heart rate of 81 bpm. There is no previous study for comparison in our system. GI: Transaminitis (improving), lactic acidosis (resolved) - Diet: NPO, failed [employer] eval, DHT ordered - LFTs: t.bili 1.8 (2.4), d.bili 1.2 (1.6), AST/ALT 41/83 (38/94), Alk phos 58 (59) - Lactic acid (09/07): 1.9 (5.4 at OSH) - 1 bowel movement last 24, holding bowel reg while NPO - CT A/P at OSH with hepatosplenomegaly, distended gallbladder, thickening of the adrenal glands, bilateral perinephric stranding, distended stomach with air- fluid level. Renal: CLINT (resolved), hypernatremia (resolved), hyperkalemia (improved) - BUN/Cr 51/0.9 (50/0.8) - Na 147 (149), will re-check at noon - continue d5w @ 50cc/hr pending noon result - UOP ~1.4L last 24, ~net even last 24, net + 14L since admit Early: no Intake & Output Intake/Output Summary (Last 24 hours) at 09/20/2024 0659 Last data filed at 09/20/2024 0600 Gross per 24 hour Intake 1437.07 ml Output 1425 ml Net 12.07 ml Endo: No active issues - BG 110s - 140s - A1c 5.8 - TSH 0.80 - check FS q4h while NPO - continue NPO SUZE until enteral access obtained - hypoglycemia protocol Heme/Onc: Acute normocytic anemia, Thrombocytopenia with c/f secondary ITP (resolved) - H/H 8.1/25.6 (7.5/23.4) - Plt 269 (254) - DVT ppx: low dose heparin gtt, SCDs - discussed lovenox yesterday, continue heparin gtt pending neuro recs s/p MRI read - Coags (09/08): INR 1.3, aPTT 27, fibrinogen 579, thrombin time 12.2 or >30 with bleeding - Heme Onc following - initial concern for secondary ITP due to acute illness/sepsis s/p 5 doses of IVIG (completed 09/11), high dose steroids, goal plt >20 - RBC morphology at OSH 3+ microcytosis, 3+ marcelino cells, 3+ schistocytes - haptoglobin 137 , LDH 436, reticulocyte 0.4, red blood cell morphology normal Upper extremity doppler 09/12/24: Bilaterally, the duplex ultrasound of the upper extremities demonstrates normal Doppler flow with no thrombus seen on patterson scale/color flow image. Findings are not consistent with the presence of deep vein thrombosis bilaterally. Lower Extremity Doppler 09/08/24: Bilaterally, the duplex ultrasound of the lower extremities demonstrates normal Doppler flow with no thrombus seen in patterson scale. Findings are not consistent with the presence of deep vein thrombosisbilaterally. ID: HEENT infection, likely meningitis/encephalitis - Afebrile, WBC 12.6 (9.9) - UA at OSH positive for nitrites and trace LE no bacteria - fluvid negative - legionella prelim negative - PJP negative - right ear culture (09/07) - yeast and bordetella trematum - blood cx OSH - GNR - blood cultures (09/07): negative - repeat blood cx 09/16: NGTD - bronch cultures (09/08): no growth to date - MRSA swab (09/07) negative - urine strep presumptive positive - LP not needed per Dr. Michaud, already has been on coverage for meningitis/encephalitis - stopped meropenem yesterday per Dr. Michaud, remains afebrile, small white count, monitor off abx Vascular access: PIV IV access Mobility: Progressive Mobility Level Achieved: Level 4,PT/OT: Yes GI PPx: none DVT PPx: PAS and Heparin drip VTE Risk Assessment VTE Time Out IMPROVE SCORE: 2 (09/07/2024 5:40 PM) Interpretation - High Risk Chemical Prophylaxis heparin (porcine) IV infusion 25,000 units in 500 mL 0.45% NaCl (premix) Intravenous Continuous heparin (porcine) 1000 unit/mL injection 2,800 Units Intravenous Every 6 hours PRN Mechanical Prophylaxis SCDs are ordered - Bilateral (Knee High) Drips: dextrose, 50 mL/hr, Last Rate: 50 mL/hr (09/20/24 0600) heparin (porcine) IV infusion - low dose protocol, 10.8 Units/kg/hr, Last Rate: 11.8 Units/kg/hr (09/20/24 0600) Lines: Peripheral IV - Single Lumen (Adult) 09/07/24 2200 median vein (underside of arm), right 20 gauge (Active) Number of days: 13 Peripheral IV - Single Lumen (Adult) 09/12/24 0338 cephalic vein (lateral side of arm), left 22 gauge;1 in length;3/4 in length (Active) Number of days: 8 Peripheral IV - Single Lumen (Adult) 09/16/24 2032 cephalic vein (lateral side of arm), right 22 gauge;1 in length;3/4 in length (Active) Number of days: 4 Enteric Access and Early: External Catheter 09/17/24 1040 (Active) Number of days: 3 Internal Fecal Management System/Rectal Tube 09/19/24 1530 (Active) Number of days: 1 Restraints: none Code: FULL Dispo: Floor , per Dr. Dickens Objective Last Vitals: Pulse:(!) 106, Resp:(!) 29, BP:BP Min: 121/58 Max: 167/71 MAP: 86 mm Hg SpO2:96 % CVP: Temp Last 24 hrs: Temp Min: 97 ??F (36.1 ??C) Max: 98.5 ??F (36.9 ??C) Physical Exam: General appearance: adult male, laying supine in bed, in no acute distress HEENT: L eye no light perception or accomodation, reactive; no right eye involvement; R pupil reactive to light but sluggish Lungs: diminished lung sounds throughout Heart: Regular rate, no appreciable murmur Abdomen: + bowel sounds, abdomen soft, mildly distended, non-tender to palpation Extremities: no noted peripheral edema, pulses 2+ at radius and DP Neurologic: Alert, pupils sluggishly reactive bialterally, eyes open, intermittently answers questions appropriately. Significant L sided facial droop, able to raise eyebrows bilaterally. Weakly follows commands to squeeze fingers equally bilaterally, weakly moving bialteral LE equally. Tremulous with efforts to move extremities bilaterally. Labs: Recent Labs 09/18/24 0010 09/19/24 0010 09/19/24 2317 WBC 11.6* 9.9 12.6* HGB 7.4* 7.5* 8.1* HCT 22.5* 23.4* 25.6* PLT 240 254 269 MCV 97 100 103* MCH 31.9* 31.9* 32.7* MCHC 32.9 32.1 31.6 RDW 14.6* 17.2* 20.9* Recent Labs 09/17/24 1511 09/18/24 0010 09/18/24 1113 09/19/24 0010 09/19/24 1317 09/19/24 2317 BUN 57* 55* -- 50* -- 51* CREAT 1.1 1.0 -- 0.8 -- 0.9 NA 147* 145 -- 145 149* 147* K 3.8 4.2 -- 3.9 -- 3.9 CO2 22 23 24 21* -- 22 CL 116* 116* -- 117* -- 118* MG 2.5 2.7 -- 2.5 -- 2.6 PHOS 3.5 2.7 -- 3.7 -- 3.4 No results for input(s): PT , PTT , INR in the last 72 hours. Medications Medication/MAR Report: Medications Scheduled Medication Ordered Dose/Rate, Route, Frequency Last Action chlorhexidine (PERIDEX) 0.12 % oral solution 15 mL 15 mL, MT, BID Given, 15 mL at 09/19 2042 chlorhexidine gluconate 2 % wipes - urethral catheter CHG application No Dose/Rate, TOP, Daily Given, 1 each at 09/19 171 [Provider Held] FLUoxetine (PROzac) capsule 40 mg On hold since Wed09/18/2024 at 1916 until manually unheld; held by Collin Vidales Reason: NPO On hold since Wed09/18/2024 at 1916 until manually unheld (Needs Review) Hold reason: NPO 40 mg, PO, Daily Given, 40 mg at 09/18 1034 [Provider Held] folic acid (FOLVITE) tablet 1 mg On hold since Wed09/18/2024 at 1916 until manuallyunheld; held by Collin Vidales Reason: NPO On hold since Wed09/18/2024 at 1916 until manually unheld (Needs Review) Hold reason: NPO 1 mg, FT, Daily Given, 1 mg at 09/18 0818 folic acid injection 1 mg/0.2 mL syringe (premix) 1 mg, IV, Daily Given, 1 mg at 09/19 0842 HYDROmorphone (DILAUDID) injection 0.5 mg 0.5 mg, IV, Once Ordered insulin lispro (HumaLOG/ADMELOG) 100 units/mL injection 1-6 Units 1-6 Units, SC, Q4H ZO Given, 1 Units at 09/19 1227 [Provider Held] lactulose (ENULOSE) 10 gm/15 mL solution 20 g On hold since yesterday at 1251 untilmanually unheld; held by Collin Jackson Reason: NPO On hold since yesterday at 1251 until manually unheld Hold reason: NPO 20 g, PER OG TUBE, BID Given, 20 g at 09/18 1031 methylPREDNISolone sodium succinate (SOLU-Medrol) injection 40 mg 40 mg, IV, Q24H ZO Ordered [Provider Held] metoPROLOL TARTRATE (LOPRESSOR) tablet 50 mg On hold since Wed09/18/2024 at 1916 until manually unheld; held by Collin Vidales Reason: NPO On hold since Wed09/18/2024 at 1916 until manually unheld (Needs Review) Hold reason: NPO 50 mg, FT, Q12H ZO Given, 50 mg at 09/18 0817 [Provider Held] multivitamin with minerals (CEROVITE) liquid 15 mL On hold since 09/18/2024 at 1916 until manually unheld; held by Collin Vidales Reason: NPO On hold since Wed09/18/2024 at 1916 until manually unheld (Needs Review) Hold reason: NPO 15 mL, FT, Daily Given, 15 mL at 09/18 818 nicotine (NICODERM CQ) 21 MG/24HR patch 1 patch 1 patch, TD, Daily Patch Applied, 1 patch at 09/19 845 nystatin (MYCOSTATIN) [id number] UNIT/ML suspension 500,000 Units 500,000 Units, PO, 4x Daily Given, 500,000 Units at 09/19 2042 [Provider Held] polyethylene glycol (miraLAx) packet 17 g On hold since yesterday at 1251 until manually unheld; held by ROQUE Jackson Reason: NPO On hold since yesterday at 1251 until manually unheld Hold reason: NPO 17 g, FT, BID Given, 17 g at 09/18 817 [Provider Held] senna-docusate (SENNA-S) 8.6-50 MG tablet 2 tablet On hold since yesterday at 1251 until manually unheld; held by ROQUE Jackson Reason: NPO On hold since yesterday at 1251 until manually unheld Hold reason: NPO 2 tablet, FT, BID Given, 2 tablet at 09/18 817 thiamine (VITAMIN B-1) injection 100 mg 100 mg, IV, Daily Given, 100 mg at 09/20 0743 [Provider Held] thiamine mononitrate (VITAMIN B-1) tablet 100 mg On hold since Wed09/18/2024 at 1916 until manually unheld; held by Collin Vidales Reason: NPO On hold since Wed09/18/2024 at 1916 until manually unheld (Needs Review) Hold reason: NPO 100 mg, FT, Daily Given, 100 mg at 09/18 817 Continuous Medication Ordered Dose/Rate, Route, Frequency Last Action dextrose 5 % (D5W) infusion 50 mL/hr, IV, Continuous Rate/Dose Verify, 50 mL/hr at 09/20 0600 heparin (porcine) IV infusion 25,000 units in 500 mL 0.45% NaCl (premix) 10.8 Units/kg/hr, IV, Continuous Rate/Dose Verify, 11.8 Units/kg/hr at 09/20 0600 PRN Medication Ordered Dose/Rate, Route, Frequency Last Action [Provider Held] acetaminophen (TYLENOL) tablet 975 mg On hold since Wed09/18/2024 at 1916 until manually unheld; held by Collin Vidales Reason: NPO On hold since Wed09/18/2024 at 1916 until manually unheld (Needs Review) Hold reason: NPO 975 mg, PO, Q6H PRN Given, 975 mg at 09/18 1030 bisacodyl (DULCOLAX) suppository 10 mg 10 mg, RE, Daily PRN Ordered dextrose 50 % solution 12.5 g (Or Linked Group #1) 12.5 g, IV, Q15 Min PRN Ordered dextrose 50 % solution 25 g (Or Linked Group #1) 25 g, IV, Q15 Min PRN Ordered glucagon (GLUCAGEN) injection 1 mg (Or Linked Group #1) 1 mg, IM, Daily PRN Ordered glucose (GLUTOSE 15) 40 % oral gel 37.5 g (Or Linked Group #1) 1 Tube, PO, Q15 Min PRN Ordered glucose (GLUTOSE 15) 40 % oral gel 75 g (Or Linked Group #1) 2 Tube, PO, Q15 Min PRN Ordered heparin (porcine) 1000 unit/mL injection 2,800 Units 30 Units/kg, IV, Q6H PRN Ordered naloxone (NARCAN) 0.4 mg/mL injection 0.4 mg 0.4 mg, IV, Q5 Min PRN Ordered Sign: Britton Rodriguez PA-C 09/20/2024 6:59 AM * Mo Dickens MD - 09/20/2024 6:00 AM EDT Images from the original note were not included. Division of Pulmonary, Critical Care, and Sleep Medicine [address] [facility], [address], [place] [address] Critical Care Note Assessment 64 y.o. male with hx of Etoh use admitted on 09/07/2024 for eye swelling (admitted to OSH on 09/06/24). Course c/b thrombocytopenia, sepsis, respiratory failure - tx to on 09/07/24. Intubated on 09/08/24. Active Problems: Acute metabolic encephalopathy Cavernous sinus thrombosis Acute hypoxic respiratory failure Diffuse alveolar hemorrhage (unclear etiology) R otitis media Pulmonary edema Volume overload Hypoalbuminemia Thrombocytopenia Sepsis SIRS ARDS Lactic acidosis SVT Shock Hypotension Leukocytosis CLINT Comorbid Conditions: Active Nicotine Dependence Total LOS: 13 days Overnight Doing well Imaging has not been helpful in determining cause of neurologic deficits Plan by System I performed rounds on the medical unit with the entire critical care team and we discussed the events below while developing the daily treatment plan: Neuro: CAM-ICU Delirium Present: Negative Dwyer Agitation Sedation Scale (RASS) / Modified RASS: 0-->alert and calm Concern for seizure activity Acute metabolic encephalopathy - improving Concern for meningitis Cavernous sinus thrombosis Concern for septic thrombophlebitis Depression Alcohol use in remission for 15 years - Tylenol - Paroxitine - hold respiridone - Neurology consult - MRV - started on heparin based on results - no role for LP after discssion with ID - abx as below Resp: Unable to protect airway Acute hypoxemic respiratory failure ARDS Diffuse alveolar hemorrhage likely due to ARDS and fluid overload and thrombocytopenia - solumedrol wean to daily, wean q3days - monitor airway closely today given significant neuro findings to make sure he can protect his airway CV: Nonsustained VT Hypertension Severe aortic stenosis - keep even, no need for aggressive diuresis - Cardiology consult signed off for the severe aortic stenosis - restart PO metprolol when DHT placed >Echo: TTE 09/11/2024 Left ventricular systolic function is hyperdynamic. The quantitative EF by 2D Stark biplane is 80%. Right ventricular systolic function is normal. There is likely severe aortic stenosis based on gradients and velocities. The continuity derived aortic valve area is less reliable in the setting of poor spectral signal. The peak velocity is 4.3 m/s and mean gradient is 45.7 mmHg. There is progressive calcific mitral stenosis. There is a mean transmitral gradient of 5 mmHg at a heart rate of 81 bpm. There is no previous study for comparison in our system. GI: Transaminitis-improving - c/w elevated bowel regimen - had BM yesterday - hold bowel regimen as he had large BM - [employer] eval but likely will need DHT >Nutrition: Diet/Nutrition Received: NPO Diet NPO Renal: CLINT - improved Hyponatremia - improved Hyperkalemia - improved - Remove Early and do void trial >Intake & Output Intake/Output Summary (Last 24 hours) at 09/20/2024 0600 Last data filed at 09/20/2024 0303 Gross per 24 hour Intake 1077.47 ml Output 1000 ml Net 77.47 ml I/O last 3 completed shifts: In: 1916.6 [P.O.:200; I.V.:726.6; Other:30; NG/GT:460; IV Piggyback:500] Out: 1000 [Urine:1000] Endo: MARY Heme/Onc: Acute normocytic anemia - Heme consulted - Status post IVIG - c/w heparin gtt until MRI results ID: HEENT infection Meningitis versus encephalitis - ID following - Continue with antibiotics as below - Neurology consult - LP not needed per Dr. Michaud as the patient has adequate meningitis encephalitis coverage - now off abx >Antibiotics: >Recent Cultures: Culture Date Value Ref Range Status 09/16/2024 Sterile after 3 days Preliminary 09/16/2024 Sterile after 3 days Preliminary 09/08/2024 Negative after 2 days Final 09/08/2024 Preliminary No fungi isolated. Culture will be held for two weeks. 09/08/2024 Negative after 5 days Preliminary ICU Checklist Drips: dextrose, 50 mL/hr, Last Rate: 50 mL/hr (09/20/24 0104) heparin (porcine) IV infusion - low dose protocol, 10.8 Units/kg/hr, Last Rate: 11.8 Units/kg/hr (09/20/24 0100) Lines: Peripheral IV - Single Lumen (Adult) 09/07/24 2200 median vein (underside of arm), right 20 gauge (Active) Number of days: 13 Peripheral IV - Single Lumen (Adult) 09/12/24 0338 cephalic vein (lateral side of arm), left 22 gauge;1 in length;3/4 in length (Active) Number of days: 8 Peripheral IV - Single Lumen (Adult) 09/16/24 2032 cephalic vein (lateral side of arm), right 22 gauge;1 in length;3/4 in length (Active) Number of days: 4 Restraints: Restraint Type: Unlocked Unlocked Bilateral Wrist (NV): discontinued Unlocked Bilateral Ankle (NV): continued Behaviors Observed: agitated upon awakening, pulling at lines/tubes Mobility: Progressive Mobility Level Achieved: Level 4 Early: GI Prophylaxis (if needed): None VTE Time Out IMPROVE SCORE: 2 (09/07/2024 5:40 PM) Interpretation - High Risk Chemical Prophylaxis heparin (porcine) IV infusion 25,000 units in 500 mL 0.45% NaCl (premix) Intravenous Continuous heparin (porcine) 1000 unit/mL injection 2,800 Units Intravenous Every 6 hours PRN Chemical VTE prophylaxis NOT ordered. Click here to order if appropriate Chemical Prophylaxis Contraindication: None - I will place appropriate order Mechanical Prophylaxis SCDs are ordered - Bilateral (Knee High) Code Status and Disposition CODE STATUS: Full DISPOSITION: Floor with tele Objective SpO2:96 %,O2 Device: room air (none), , Temp Last 24 hrs: Temp Min: 97 ??F (36.1 ??C) Max: 97.8 ??F (36.6 ??C) WBC Trend White Blood Cell Count Date Value Ref Range Status 09/19/2024 12.6 (H) 4.0 - 11.0 Thou/uL Final 09/19/2024 9.9 4.0 - 11.0 Thou/uL Final 09/18/2024 11.6 (H) 4.0 - 11.0 Thou/uL Final 09/17/2024 11.9 (H) 4.0 - 11.0 Thou/uL Final Last Vitals: Pulse:(!) 110, Resp:(!) 25, BP:BP Min: 121/58 Max: 167/71 MAP: 86 mm Hg Physical Exam: General: Intermittent agitation; L eye extremely swollen PIV x 2 OG tube Early cath HEENT: supple without LAD Lungs: clear to auscultation bilaterally Heart: regular rate and rhythm, S1, S2 normal, no murmur, click, rub or gallop Abdomen: soft, non-tender; bowel sounds normal; no masses, no organomegaly Extremities: atraumatic, no cyanosis or edema Neuro: Moves extremities, slurred speech and facial droop I reviewed the prescribed Medications and new Laboratory Blood Work I reviewed all new Imaging Studies (actual images) and compared to prior where applicable Sign: Mo Dickens MD 09/20/2024 6:00 AM * Alina Davis - 09/19/2024 8:17 PM EDT Yard Conductor visited Mr Masterson, gillian SANDOVAL, to offer spiritual presence/support. Upon entrance to room, ptwas receptive to Yard Conductor visit, voicing greeting- then affirming Yard Conductor's assurances that he wasin a safe place, that he mattered and that he was not alone. Pt then attempted to ask indiscerniblequestion, to which Yard Conductor offered tender touch, acknowledgement of his frustration and passed on pt's inquiry(?) to his nurse. Pt nodded his head, and voiced thank you upon conclusion of check in. Jaylene Davis, 09/19/242015 Spiritual Care Spiritual Care Visit Type initial Spiritual Care Source body artist initiative Receptivity to Spiritual Care visit welcomed Spiritual Care Request coping/stress of illness support;mood/anxiety support Spiritual Care Interventions supportive conversation provided Response to Spiritual Care expressing self, indicated difficulty;receptive of support Use of Spiritual Resources other (see comments) (Unable to fully assess pt's use of spiritual resources during this visit.) Spiritual Care Follow-Up follow-up planned regularly for general support * Pierre Michaud MD - 09/19/2024 1:12 PM EDT [facility] Progress Note Assessment & Plan Assessment Alcohol use disorder in remission for 15 years Tobacco use disorder with a [id number] history Presenting with altered mental status, left eye swelling, tongue swelling and severe right ear pain MRIs were done and the patient was sent down here It looks like he has a cavernous sinus thrombosis. 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 Bronchoscopy was done 417 culture of his ear is growing yeast and Bordetella trematum He remains on the ventilator Repeat MRI is about the same He is awake alert and following He is extubated He is speaking although somewhat difficult to understand Temperature is 100.2 with a white count of 9.9 and a creatinine of 0.8 We have no positive cultures to speak of Plan Has been on meropenem for at least 10 days We can try stopping antibiotics given that we never isolated anything Subjective No shortness of breath or chest pain Objective Last Vitals Pulse:(!) 114,Resp:(!) 31,BP:(!) 167/81,SpO2:96 %,Weight:90 kg (198 lb 6.6 oz) Temp Last 24 hrs: Temp Min: 96.8 ??F (36 ??C) Max: 100.2 ??F (37.9 ??C) Last temp: 97.6 ??F (36.4 ??C) (Tympanic) Physical Exam Lungs: Clear Cardiac: RRR Abdomen: +BS Soft Nontender Skin:No rash No skin lesions Anti-infectives (From admission, onward) Start Dose/Rate Route Frequency Ordered Stop 09/08/24 1700 meropenem (MERREM) 1 g in sodium chloride-MBP (NS) 100 mL IVPB-MBP 1 g 33.3 mL/hr over 3 Hours Intravenous Every 8 hours 09/08/24 1640 Intake/Output Summary (Last 24 hours) at 09/19/2024 1313 Last data filed at 09/19/2024 1300 Gross per 24 hour Intake 767.2 ml Output 600 ml Net 167.2 ml Relevant data reviewed MEDICATIONS Current Facility-Administered Medications Medication Dose Route Frequency Provider Last Rate Last Admin [Provider Held] acetaminophen (TYLENOL) tablet 975 mg 975 mg Oral Q6H PRN Daiana Guzman PA-C 975 mg at 09/18/24 1030 bisacodyl (DULCOLAX) suppository 10 mg 10 mg Rectal Daily PRN Marie Chamberlain PA-C chlorhexidine (PERIDEX) 0.12 % oral solution 15 mL 15 mL Mouth/Throat BID Korina Lai PA-C 15 mL at 09/19/24 0848 chlorhexidine gluconate 2 % wipes - urethral catheter CHG application Topical Daily Kelly Rodriguez MD 1 each at 09/18/24 1807 glucose (GLUTOSE 15) 40 % oral gel 37.5 g 1 Tube Oral Q15 Min PRN Britton Rodriguez PA-C Or glucose (GLUTOSE 15) 40 % oral gel 75 g 2 Tube Oral Q15 Min PRN Britton Rodriguez PA-C Or dextrose 50 % solution 12.5 g 12.5 g Intravenous Q15 Min PRN Britton Rodriguez PA-C Or dextrose 50 % solution 25 g 25 g Intravenous Q15 Min PRN Britton Rodriguez PA-C Or glucagon (GLUCAGEN) injection 1 mg 1 mg Intramuscular Daily PRN Britton Rodriguez PA-C [Provider Held] FLUoxetine (PROzac) capsule 40 mg 40 mg Oral Daily Daiana Guzman PA-C 40 mg at 09/18/24 1034 [Provider Held] folic acid (FOLVITE) tablet 1 mg 1 mg Feeding Tube Daily Shira Bonilla PA-C 1 mg at09/18/24 0818 folic acid injection 1 mg/0.2 mL syringe (premix) 1 mg Intravenous Daily Amparo Merino PA-C 1 mgat 09/19/24 0842 heparin (porcine) 1000 unit/mL injection 2,800 Units 30 Units/kg Intravenous Q6H PRN Daiana Guzman PA-C heparin (porcine) IV infusion 25,000 units in 500 mL 0.45% NaCl (premix) 10.8 Units/kg/hr Intravenous Continuous Daiana Guzman PA-C 18.208 mL/hr at 09/19/24 1300 9.8 Units/kg/hr at 09/19/24 1300 insulin lispro (HumaLOG/ADMELOG) 100 units/mL injection 1-6 Units 1-6 Units Subcutaneous Q4H [facility] Britton Rodriguez PA-C 1 Units at 09/19/24 1227 [Provider Held] lactulose (ENULOSE) 10 gm/15 mL solution 20 g 20 g OG Tube BID Shira Bonilla PA-C 20 g at 09/18/24 1031 meropenem (MERREM) 1 g in sodium chloride-MBP (NS) 100 mL IVPB-MBP 1 g Intravenous Q8H Marie Chamberlain PA-C 33.3 mL/hr at 09/19/24 0842 1 g at 09/19/24 0842 [START ON 09/20/2024] methylPREDNISolone sodium succinate (SOLU-Medrol) injection 40 mg 40 mg Intravenous Q24H [facility] Shira Bonilla PA-C [Provider Held] metoPROLOL TARTRATE (LOPRESSOR) tablet 50 mg 50 mg Feeding Tube Q12H [facility] KRISTA Modi 50 mg at 09/18/24 0817 [Provider Held] multivitamin with minerals (CEROVITE) liquid 15 mL 15 mL Feeding Tube Daily Shira Bonilla PA-C 15 mL at 09/18/24 0819 naloxone (NARCAN) 0.4 mg/mL injection 0.4 mg 0.4 mg Intravenous Q5 Min PRN Marie Chamberlain PA-C nicotine (NICODERM CQ) 21 MG/24HR patch 1 patch 1 patch Transdermal Daily KRISTA Bedolla 1patch at 09/19/24 0846 nystatin (MYCOSTATIN) 603875 UNIT/ML suspension 500,000 Units 500,000 Units Oral 4x Daily Shira Bonilla PA-C 500,000 Units at 09/19/24 0843 [Provider Held] polyethylene glycol (miraLAx) packet 17 g 17 g Feeding Tube BID Marie Chamberlain PA-C 17 g at 09/18/24 0818 [Provider Held] senna-docusate (SENNA-S) 8.6-50 MG tablet 2 tablet 2 tablet Feeding Tube BID Marie Chamberlain PA-C 2 tablet at 09/18/24 0818 thiamine (VITAMIN B-1) injection 100 mg 100 mg Intravenous Daily Amparo Merino PA-C 100 mg at 09/19/24 0843 [Provider Held] thiamine mononitrate (VITAMIN B-1) tablet 100 mg 100 mg Feeding Tube Daily Shira Bonilla PA-C 100 mg at 09/18/24 0818 Notable labs are: Lab Results Component Value Date WBC 9.9 09/19/2024 HGB 7.5 (L) 09/19/2024 HCT 23.4 (L) 09/19/2024 PLT 254 09/19/2024 Lab Results Component Value Date AST 41 2024 ALT 83 (H) 2024 ALKPHOS 58 2024 BILITOT 1.8 (H) 2024 BILIDIR 1.2 (H) 2024 ALBUMIN 2.3 (L) 09/17/2024 PROT 7.1 2024 Lab Results Component Value Date CREAT 0.8 09/19/2024 Blood Cultures: Lab Results Component Value Date CULTURE Sterile after 3 days 09/16/2024 CULTURE Sterile after 3 days 09/16/2024 Urine Cultures: No results found for: CRYSUA , HYALNCSTUA , UROBILINOGEN , BILIUA , BLOODUA , CLARITYUA , COLORUA , UACOMMENT , GLUCU , KETONESUA , LEUKOCYTESUA , NITRITEUA , PHUA , PROTEINUA , RBCUA , SPECIMEN , SPECGRAVUA , SQEPIUA , WBCUA No components found for: WOUND C. Difficile: No results found for: CDIFFTOX , NAP1 Sign Pierre Michaud MD 09/19/2024 1:13 PM Pierre Michaud * Pierre Rosen, OT - 09/19/2024 9:05 AM EDT Occupational Therapy Progress Note Assessment & Progress Summary: Mariah was seen for follow up OT session today and demonstrated fair progress toward established goals, evidenced by improved tolerance for participation activities with rest breaks/assistance. Patient was able to tolerate rolling in bed, supine to/from sitting EOB, static sitting EOB and transfer bed to recliner chair. Patient is continuing to present below functional baseline at this time, though demonstrates the potential to improve with continued OT services through out admission and at next level of care. Progress Towards Goals: progress toward functional goals is gradual Outcome Measures: The Activity Measure for Post-Acute Care (AM-PAC) Daily Activity Inpatient Short Form (6-clicks) simeon standardized measure used to quantify deficits in self-care. The total score of the measure ranges from 6-24. A higher score indicates a higher level of independence with self-care tasks. Current [facility] Daily Activity Score: 9 Precautions/Restrictions: fall, other (see comments) (skin) Rehab Plan of Care OT will continue to focus on functional transfers, bed mobility, sitting balance, standing balance,functional mobility, generalized strengthening, energy conservation, DME/adaptive equipment recommendations, ADL skills training, fall prevention training. -OT Recommendations for Staff: Assist x 2 bed mobility, assist x 2 stand pivot transfer bed to chair/commode, encourage time OOB/beach chair position through out the day, encourage maximum participation with all ADLs. -OT Frequency during Hospitalization: other (see comments) (1 time/wk to assess mental status/ability to participate in treatment.) -Progressive Mobility Level: Level 4 -Plan of Care Reviewed With: care plan/treatment goals reviewed, participants voiced agreement withcare plan, participants included, patient Education: OT role, POC, and recommendations Treatment Interventions/Objective Data Interventions to Optimize ADL Performance Grooming: Max Assist use of oral swab to moisten mouth Bathing: Dependent Dressing: Dependent donning socks bed level Toileting: Dependent Transfers and Functional Mobility: Patient was able to perform rolling in bed and supine to/from sitting EOB with max assist x 2, with cueing/instruction for technique with log rolling/use of bed rails. Able to complete pivot transfer from bed to recliner chair with max assist x 2, instruction/cueing for hand/foot placement, weight shift, weight bearing through BLEs. Cognition: Able to follow single step verbal instructions with >50% accuracy, additional repetition and cueing as needed. Therapeutic Activity: Instruction/education for technique with rolling in bed, supine to/from sitting EOB and transfer (SPT) to recliner chair. Neuromuscular Re-education: Min/mod assist static sitting EOB with cueing/instruction for appropriate hand/foot placement and weight shifting to maximize upright posture. Activity Tolerance: Patient tolerated completion of session while on Room Air for duration of session. Patient's participation/activity tolerance was limited this session due to Fatigue. Vitals: Before Activity During Activity After Activity Heart Rate 104 bpm 113-130 bpm 121 bpm BP 178/82 (118) 178/81 (116) 165/77 (110) SpO2 95% 97% 91% Subjective I need some water Flowsheet Data 09/19/24 0905 OT Time and Intention OT Follow-Up Visit follow up treatment Mode of Treatment occupational therapy Patient Effort good Symptoms Noted During/After Treatment fatigue General Information Patient Profile Reviewed yes Patient/Family/Caregiver Comments/Observations I need some water General Observations of Patient Patient received recumbent in bed, on room air, in NAD and agreeable to OT follow up. Existing Precautions/Restrictions fall;other (see comments) (skin) Pain Assessment Pretreatment Pain Rating 0/10 - no pain Posttreatment Pain Rating 0/10 - no pain Pre/Posttreatment Pain Comment Denied pain through out session Cognition Follows Commands (Cognition) follows one-step commands;50-74% accuracy;repetition of directions required;verbal cues/prompting required Cognitive Function (Cognition) WFL Coping Observed Emotional State calm;cooperative Verbalized Emotional State acceptance Trust Relationship/Rapport care explained;choices provided;thoughts/feelings acknowledged;reassurance provided;questions encouraged;questions answered;empathic listening provided;emotional support provided Family/Support Persons patient Involvement in Care participating in care Family/Support System Care support provided;self-care encouraged Diversional Activities television;music Safety Safety WDL WDL All Alarms alarm(s) activated and audible Enhanced Safety Measures chair alarm set Progressive Mobility Progressive Mobility Level Achieved Transferring to Chair [facility] Daily Activity Putting on and taking off Lower Body Clothing? 1 Bathing (including washing/rinsing/drying)? 1 Toileting (includes using toilet, bedpan, or urinal)? 1 Putting on and taking off upper body clothing? 2 Taking care of personal grooming such as brushing teeth? 2 Eating meals? 2 [facility] Daily Activity Score 9 Progress Summary (OT) Progress Toward Functional Goals (OT) progress toward functional goals is gradual Daily Progress Summary (OT) Patient extubated, demonstrates improved ability to participate in functional activities. Goals ongoing. Barriers to Overall Progress (OT) Generalized deconditioning, weakness, impaired activity tolerance Therapy Plan Review/Discharge Plan (OT) Therapy Plan Review (OT) care plan/treatment goals reviewed;participants voiced agreement with careplan;participants included;patient OT Recommendations for Staff Assist x 2 bed mobility, assist x 2 stand pivot transfer bed to chair/commode, encourage time OOB/beach chair position through out the day, encourage maximum participation with all ADLs. Transfer Goal 1 (OT) Progress/Outcome (Transfer Goal 1, OT) goal ongoing Bathing Goal 1 (OT) Progress/Outcomes (Bathing Goal 1, OT) goal ongoing Dressing Goal 1 (OT) Progress/Outcome (Dressing Goal 1, OT) goal ongoing Toileting Goal 1 (OT) Progress/Outcome (Toileting Goal 1, OT) goal ongoing Sign: Pierre Rosen OT * Denis Guzman, PT - 09/19/2024 9:00 AM EDT Physical Therapy Progress Note Assessment Summary: Patient seen for follow up PT session. Patient making fair gains towards goals establishedat evaluation. Completing all mobility with Ax1-2 as detailed below. During this session, he was able to participate in bed mobility activities and perform stand pivot to chair w/ Ax2. He reported fatigue and LE weakness while transferring to chair. He otherwise denied symptoms of headache, dizziness, SOB, or N/V on room air. Further mobility progressions deferred 2/2 fatigue, pt left in bed, bedalarm on, call garcia in reach, all needs met. Patient requires ongoing skilled PT due to deviation from baseline mobility status as a result of acute illness and impairments. The goal of therapy will be to optimize function to minimize risk for future falls and hospital readmissions. Patient is a good rehab candidate and with ability to make functional gains and maximize independence with daily multidisciplinary therapy in conjunction with nursing home services at next level of care. If transitioning home, patient would require Home PT, hands on assistance with mobility, RW, wheelchair, maintain 1st level setup, commode, shower chair, prabhakar, raised toilet seat, and ambulance liftinto home Progress Towards Goals: (P) progress toward functional goals is good Outcome Measures: The Activity Measure for Post-Acute Care (AM-PAC) Basic Mobility Inpatient Short Form (6-clicks) simeon standardized measure used to quantify functional deficits in mobility. The total score of the measure ranges from 6-24. A higher score indicates a higher level of independence with functional mobility. Current [facility] Basic Mobility Score: (P) 9 Rehab Plan of Care PT will continue to follow pt during hospital stay to address identified impairments, maximize functional independence and facilitate safe discharge. PT plans to follow up with patient in 1-3 days oras able to progress bed mobility, transfers, gait/stability and stair negotiation. Pt to mobilize with nursing staff outside of PT treatment times to improve activity tolerance and functional mobility. Specifically, transfers to commode and/or chair multiple times/day to avoid deconditioning due to hospitalization. -PT Recommendations for Staff: (P) Ax1 w/ bed mobility/repositioning, slide OOB to cardiac chair -PT Frequency during Hospitalization: (P) 2-3 times/wk -Plan of Care Reviewed With: (P) patient Objective Data/Intervention Bed Mobility Assessment/Intervention: Supine<>sit with HOB elevated, Mod A x 1, with verbal cueing for sequencing, scooting to EOB to place feet on floor , and use of bedrail Transfers Assessment/Intervention:Stand pivot transfer EOB>chair, no device, Max A x 1, with verbal cueing for hand placement, anterior weightshift, and upright posture in stand Activity Tolerance/Endurance Assessment/Intervention: Fair, pt fatigued reporting LE weakness w/ functional transfers, denies dizziness, SOB, or N/V on 3L O2 via IA Education: Oriented to call YAEL garcia for all meals, explained role of PT, POC and discharge plan. Subjective Kena Flowsheet Data 09/19/24 0900 Physical Therapy Time and Intention PT Follow-Up Visit follow up treatment Mode of Treatment physical therapy Patient Effort good Symptoms Noted During/After Treatment fatigue General Information Patient/Family/Caregiver Comments/Observations Yeananya General Observations of Patient Pt received supine in bed w/ HOB elevated, seen for PT treatment session Existing Precautions/Restrictions fall;other (see comments) (skin) Pain Scale: FACES Pre/Post-Treatment Pre/Posttreatment Pain Comment Pt w/out c/o pain Cognition Cognitive Status Impaired Safety Issues, Functional Mobility Impairments Affecting Function (Mobility) balance;cognition;endurance/activity tolerance;postural/trunk control;strength Activity Tolerance / Endurance Activity Tolerance / Endurance Fair, pt fatigued reporting LE weakness w/ functional transfers, denies dizziness, SOB, or N/V on 3L O2 via IA Health Promotion Additional Documentation Coping (Group);Plan of Care Review (Group) Coping Observed Emotional State calm;cooperative Verbalized Emotional State acceptance Plan of Care Review Plan of Care Reviewed With patient Safety Safety WDL WDL Safety Factors wheels locked;upper side rails raised x 2;ID band on;call light in reach;patient up in chair All Alarms alarm(s) activated and audible Enhanced Safety Measures chair alarm set Additional Documentation All Alarms (Row) Progressive Mobility Progressive Mobility Level Achieved Transferring to Chair [facility] Basic Mobility Turning from your back to your side while in a flat bed without using bedrails? 3 Moving from lying on your back to sitting on the side of a flat bed without using bedrails? 2 Moving to and from a bed to a chair (including wheelchair)? 1 Standing up from a chair using your arms? 1 To walk in a hospital room? 1 Climbing 3-5 steps with a railing? 1 [facility] Basic Mobility Score 9 Therapy Assessment/Plan (PT) Rehab Potential (PT) good Criteria for Skilled Interventions Met (PT) yes;meets criteria Therapy Frequency (PT) 2-3 times/wk PT Recommendations for Staff Ax1 w/ bed mobility/repositioning, slide OOB to cardiac chair Predicted Duration of Therapy Intervention (PT) LOS Planned Therapy Interventions (PT) balance training;bed mobility training;gait training;patient/family education;stair training;strengthening;transfer training Progress Summary (PT) Progress Toward Functional Goals (PT) progress toward functional goals is good Therapy Plan Review/Discharge Plan (PT) Therapy Plan Review (PT) evaluation/treatment results reviewed;care plan/treatment goals reviewed;risks/benefits reviewed;current/potential barriers reviewed;patient Sign: Denis Guzman, PT * Britton Rodriguez PA-C - 09/19/2024 8:12 AM EDT Critical Care Progress Note Subjective Overnight events: - extubated yesterday, weaned to room air overnight - remains on low dose heparin gtt for B/L internal jugular thrombi and cavernous sinus thrombosis - [employer] eval pending - continues on meropenem AM Update: Ordered STAT CTA head and Neck with concern for increase in L sided facial droop from prior and garbled speech. Neurology aware and following. Assessment & Plan Assessment: Mariah Masterson is a 63 year old male with PMHx of depression, alcohol abuse, tobacco use who presented to OSH for concern of left eye swelling, tongue swelling, right ear pain, and decreased visual acuity of left eye. He was ultimately transferred to for ENT, ophthalmology, ID, neuro consults. He was admitted for further management of cavernous sinus thrombosis with course complicated by worsening hypoxia with concern for diffuse alveolar hemorrhage in the setting of ARDS. MRI with meningitis/encephalitis. Principal Problem: Acute cerebral venous sinus thrombosis LOS: 12 days Plan by system Neuro: Cavernous sinus thrombosis, bilateral non occlusive thrombus of IJVs, likely meningitis/encephalitis, acute metabolic encephalopathy, Hx depression, tobacco use, ETOH use (in remission 15 years) - Mental status: Alert, PERRLA, eyes open, intermittently answers questions appropriately. Significant L sided facial droop, able to raise eyebrows bilaterally. Weakly follows commands to squeeze fingers equally bilaterally, weakly moving bialteral LE equally. Tremulous with efforts to move extremities bilaterally. - Continue Dilaudid 0.5mg Q2h PRN (x 0 overnight) - Continue tylenol 975 mg q6h PRN for fevers (x0 overnight) - Continue with nicotine patch - active smoker - Holding home risperidone 0.5 BID w/ recent AMS and lethargy - SW consulted for help with HCR (daughter next of kin but estranged 30 years; mom and sister in chart) - s/p LTM, negative for seizures - s/p dilaudid gtt, haldol, seroquel - Continue home Fluoxetine 40mg daily when can take PO - Neuro re-engaged - they believe MRI shows ventriculitis with pus in the ventricles likely representing meningitis. Discussed with ID and no LP needed as already covered on meropenem, low-dose heparin drip recommended for bilateral IJ thrombus on MRV - Spot EEG for intermittent twitching suggestive of severe encephalopathy, no seizures however interpretation limited d/t lack of video review LTM: Monitoring Day 1: 09/16/2024 - Nonspecific, moderate to severe encephalopathy. Monitoring Day 2: 09/17/2024 - Nonspecific, moderate to severe encephalopathy. MRV 09/16: Redemonstration of nonocclusive filling defects within the proximal internal jugular veins. No other partial or complete occlusion. MRI Brain (09/13): 1. Similar pattern of inflammatory change (better described on CTA head and neck performed same day) about the left orbit with thrombus within the enlarged left superior ophthalmic vein, nonocclusive thrombus in the cavernous sinus bilaterally and venous structures about the middle cranial fossa as noted above (not conspicuous on CTA head and neck), with nonocclusive thrombus bilateral internal jugular veins, etiology is uncertain. 2. Hyperintense signal along the sulci of the frontoparietal and occipital lobes without enhancement. 3. Nonenhancing debris demonstrating diffusion restriction and slight FLAIR hyperintensity within the occipital horns with trace hemosiderin. 4. Right-sided otomastoiditis. 5. Right temporal scalp and temporalis contusion. CTA Head/neck (09/12): 1. Similar appearance of soft tissue changes about the left orbit without definitive filling defect within the left cavernous sinus. 2. No acute intracranial process. 3.Intact anterior and posterior circulations without dissection, major branch occlusion, aneurysm, or vascular malformation. 4. No dissection or high grade stenosis of the carotid or vertebral systems. 5. Scattered groundglass opacities and pneumatoceles imaged lungs with subsegmental foci of consolidation, correlate clinically, infectious versus inflammatory. ENT: Right sided otomastoiditis, left eye swelling (improving), - Ear culture (09/07): + rubi parapsilosis, bordetella species - S/p ciprodex otic drops, hydrocortisone-aceitic acid otic drops - ENT following - reviewed most recent imaging but no clinical evidence of mastoiditis so no changes to plan - Ophthalmology consulted, given no light perception in left eye, poor visual prognosis; no acute interventions recommended to help with left eye vision, no evidence of R eye involvement. Left visionloss maybe likely to thrombosis disrupting blood-flow or involvement of the orbital apex or posterior ischemic optic neuropathy given unremarkable fundus exam, normal IOP () and non- edematous opticnerve Behavioral/Sedation scales CAM-ICU Delirium Present: Negative Dwyer Agitation Sedation Scale (RASS) / Modified RASS: 0-->alert and calm Resp: Acute hypoxic respiratory failure 2/2 ARDS (improved), concern for diffuse alveolar hemorrhage (improved) - SpO2 93-96% now on room air, extubated 09/19 - intubated 09/08 - 09/19 - VBG 09/18 7.5 - wean solumedrol to 40mg daily - Bronchoscopy on 09/08; findings consistent with DAH; cultures negative to date Vasculitis labs: - Glomerular basement membrane Ab negative - Lupus anticoagulant not detected -CCP Ab negative, dsDNA negative, complement C3 85, C4 10 (L) - myeloperoxidase Ab, proteinase-3 Ab, ANCA negative - RF pending CT Thorax (09/08): 1. Diffuse interlobular septal thickening, with scattered [...] 3.1 cm, may represent pericardial fluid/pericardial cyst. CXR 09/08: Mild interval improvement in bilateral airspace opacities. CV: non- sustained VT (resolved), hypertension (improved), severe aortic stenosis - HR 90s to 110s, SBPs 140s - 170s - HS trop (09/07): 22 - ProBNP: 486 (2219) - EKG (09/15): Sinus tachycardia with PVCs, RBBB, Qtc 494 - holding home metoprolol while NPO, will resume when enteral access obtained - [facility] cardiology consulted for new severe aortic stenosis - signed off until more stable - hold diuresis today ECHO 09/11/24: Left ventricular systolic function is hyperdynamic. The quantitative EF by 2D Stark biplane is 80%. Right ventricular systolic function is normal. There is likely severe aortic stenosis based on gradients and velocities. The continuity derived aortic valve area is less reliable in the setting of poor spectral signal. The peak velocity is 4.3 m/s and mean gradient is 45.7 mmHg. There is progressive calcific mitral stenosis. There is a mean transmitral gradient of 5 mmHg at a heart rate of 81 bpm. There is no previous study for comparison in our system. GI: Transaminitis (improving), lactic acidosis (resolved) - Diet: NPO pending [employer] EX[employer] eval - LFTs: t.bili 1.8 (2.4), d.bili 1.2 (1.6), AST/ALT 41/83 (38/94), Alk phos 58 (59) - Lactic acid (09/07): 1.9 (5.4 at OSH) - CT A/P at OSH with hepatosplenomegaly, distended gallbladder, thickening of the adrenal glands, bilateral perinephric stranding, distended stomach with air- fluid level. - 2 large bowel movements per nursing, holding lactulose, d/c movantik - if fails speech eval will order DHT placement Renal: CLINT, hypernatremia (resolved), hyperkalemia (improved) - BUN/Cr 50/0.8 (55/1.0) - Na 145, K+ 3.9 - UOP ~1.5L last 24, net + 118.2 last 24, net + 14.3 L since admit Early: no Intake & Output Intake/Output Summary (Last 24 hours) at 09/19/2024 0812 Last data filed at 09/19/2024 0700 Gross per 24 hour Intake 1016.1 ml Output 600 ml Net 416.1 ml Endo: No active issues - BG 110s - 120s - A1c 5.8 - TSH 0.80 - check FS q4h while NPO - Adjusted SUZE to NPO scale - hypoglycemia protocol Heme/Onc: Acute normocytic anemia, Thrombocytopenia with c/f secondary ITP (improving) - H/H 7.5/23.4 (7.4/22.5) - Plt 254 (240) - Coags (09/08): INR 1.3, aPTT 27, fibrinogen 579, thrombin time 12.2 - Heme Onc following - 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 Findings are not consistent with the presence of deep vein thrombosis bilaterally. Lower Extremity Doppler 09/08/24: Bilaterally, the duplex ultrasound of the lower extremities demonstrates normal Doppler flow with no thrombus seen in patterson scale. Findings are not consistent with the presence of deep vein thrombosisbilaterally. ID: HEENT infection, likely meningitis/encephalitis - Afebrile, WBC 9.9 (11.6) - UA at OSH positive for nitrites and trace LE no bacteria - fluvid negative - legionella prelim negative - PJP negative - right ear culture (09/07) - yeast and bordetella trematum - blood cx OSH - GNR - blood cultures (09/07): negative - repeat blood cx 09/16: NGTD - bronch cultures (09/08): no growth to date - MRSA swab (09/07) negative - urine strep presumptive positive - LP not needed per Dr. Michaud, already has been on coverage for meningitis/encephalitis - Continue meropenem - Dr. Kojo following, will reach out to him regarding length to continue meropenem Vascular access: PIV IV access Mobility: Progressive Mobility Level Achieved: Level 0,PT/OT: Yes GI PPx: none DVT PPx: PAS and Heparin drip VTE Risk Assessment VTE Time Out IMPROVE SCORE: 2 (09/07/2024 5:40 PM) Interpretation - High Risk Chemical Prophylaxis heparin (porcine) IV infusion 25,000 units in 500 mL 0.45% NaCl (premix) Intravenous Continuous heparin (porcine) 1000 unit/mL injection 2,800 Units Intravenous Every 6 hours PRN Heparin Sodium (Porcine) 5000 Units Last dose 09/16/2024 2:04 PM Mechanical Prophylaxis SCDs are ordered - Bilateral (Knee High) Drips: heparin (porcine) IV infusion - low dose protocol, 10.8 Units/kg/hr, Last Rate: 9.8 Units/kg/hr (09/19/24 0700) Lines: Peripheral IV - Single Lumen (Adult) 09/07/24 2200 median vein (underside of arm), right 20 gauge (Active) Number of days: 12 Peripheral IV - Single Lumen (Adult) 09/12/24 0338 cephalic vein (lateral side of arm), left 22 gauge;1 in length;3/4 in length (Active) Number of days: 7 Peripheral IV - Single Lumen (Adult) 09/16/24 2032 cephalic vein (lateral side of arm), right 22 gauge;1 in length;3/4 in length (Active) Number of days: 3 Enteric Access and Early: External Catheter 09/17/24 1040 (Active) Number of days: 2 Restraints: soft wrists bilaterally Interference with medical treatment Code: FULL Dispo: ICU, per Dr. Dickens Objective Last Vitals: Pulse:96, Resp:(!) 29, BP:BP Min: 144/66 Max: 167/79 MAP: 86 mm Hg SpO2:94 % CVP: Temp Last 24 hrs: Temp Min: 96.8 ??F (36 ??C) Max: 101.7 ??F (38.7 ??C) Physical Exam: General appearance: adult male, seated in chair, in no acute distress HEENT: no light perception or accomodation; no right eye involvement; R pupil reactive to light butsluggish Lungs: diminished lung sounds throughout Heart: Regular rate, no appreciable murmur Abdomen: + bowel sounds, abdomen soft, mildly distended, non-tender to palpation Extremities: no noted peripheral edema, pulses 2+ at radius and DP Neurologic: Alert, pupils sluggishly reactive bialterally, eyes open, intermittently answers questions appropriately. Significant L sided facial droop, able to raise eyebrows bilaterally. Weakly follows commands to squeeze fingers equally bilaterally, weakly moving bialteral LE equally. Tremulous with efforts to move extremities bilaterally. Labs: Recent Labs 09/16/24 1707 09/16/24 1843 09/17/24 0030 09/18/24 0010 09/19/24 0010 WBC Test not performed due to insufficient quantity of specimen. 11.0 11.9* 11.6* 9.9 HGB Test not performed due to insufficient quantity of specimen. 8.1* 7.3* 7.4* 7.5* HCT Test not performed due to insufficient quantity of specimen. 24.4* 22.6* 22.5* 23.4* PLT Test not performed due to insufficient quantity of specimen. 238 221 240 254 MCV Test not performed due to insufficient quantity of specimen. 96 97 97 100 MCH Test not performed due to insufficient quantity of specimen. 32.0* 31.2* 31.9* 31.9* MCHC Test not performed due to insufficient quantity of specimen. 33.2 32.3 32.9 32.1 RDW Test not performed due to insufficient quantity of specimen. 13.2 13.4 14.6* 17.2* Recent Labs 09/16/24 1616 09/17/24 0030 09/17/24 0030 09/17/24 1511 09/18/24 0010 09/18/24 1113 09/19/24 0010 BUN -- 65* -- 57* 55* -- 50* CREAT -- 1.4* -- 1.1 1.0 -- 0.8 NA 147* 142 -- 147* 145 -- 145 K -- 4.6 -- 3.8 4.2 -- 3.9 CO2 -- 25 -- 22 23 24 21* CL -- 110* -- 116* 116* -- 117* MG -- 2.7 -- 2.5 2.7 -- 2.5 PHOS -- 4.1 < > 3.5 2.7 -- 3.7 < > = values in this interval not displayed. Recent Labs 09/16/24 1707 PTT 24* INR 1.2 Medications Medication/MAR Report: Medications Scheduled Medication Ordered Dose/Rate, Route, Frequency Last Action chlorhexidine (PERIDEX) 0.12 % oral solution 15 mL 15 mL, MT, BID Given, 15 mL at 09/18 2016 chlorhexidine gluconate 2 % wipes - urethral catheter CHG application No Dose/Rate, TOP, Daily Given, 1 each at 09/18 1806 [Provider Held] FLUoxetine (PROzac) capsule 40 mg On hold since yesterday at 1915 until manually unheld; held by Collin Vidales Reason: NPO On hold since yesterday at 1915 until manually unheld Hold reason: NPO 40 mg, PO, Daily Given, 40 mg at 09/18 1034 [Provider Held] folic acid (FOLVITE) tablet 1 mg On hold since yesterday at 1915 until manually unheld; held by Collin Vidales Reason: NPO On hold since yesterday at 1915 until manually unheld Hold reason: NPO 1 mg, FT, Daily Given, 1 mg at 09/19 0718 folic acid injection 1 mg/0.2 mL syringe (premix) 1 mg, IV, Daily Ordered insulin lispro (HumaLOG/ADMELOG) 100 units/mL injection 3-11 Units 3-11 Units, SC, Q4H ZO Given, 3 Units at 09/19 0423 lactulose (ENULOSE) 10 gm/15 mL solution 20 g 20 g, PER OG TUBE, BID Given, 20 g at 09/18 103 meropenem (MERREM) 1 g in sodium chloride-MBP (NS) 100 mL IVPB-MBP 1 g, IV, Q8H New Bag, 1 g at 09/19 0054 methylPREDNISolone sodium succinate (SOLU-Medrol) injection 40 mg 40 mg, IV, Q12H ZO Given, 40 mg at 09/18 2016 [Provider Held] metoPROLOL TARTRATE (LOPRESSOR) tablet 50 mg On hold since yesterday at 1915 until manually unheld; held by Collin Vidales Reason: NPO On hold since yesterday at 1915 until manually unheld Hold reason: NPO 50 mg, FT, Q12H ZO Given, 50 mg at 09/18 816 [Provider Held] multivitamin with minerals (CEROVITE) liquid 15 mL On hold since yesterday at 1915 until manually unheld; held by Collin Vidales Reason: NPO On hold since yesterday at 1915 until manually unheld Hold reason: NPO 15 mL, FT, Daily Given, 15 mL at 09/18 818 naloxegol (MOVANTIK) tablet 25 mg 25 mg, FT, Daily before breakfast Given, 25 mg at 09/18 817 nicotine (NICODERM CQ) 21 MG/24HR patch 1 patch 1 patch, TD, Daily Patch Applied, 1 patch at 09/18 816 nystatin (MYCOSTATIN) 822327 UNIT/ML suspension 500,000 Units 500,000 Units, PO, 4x Daily Given, 500,000 Units at 09/18 2212 polyethylene glycol (miraLAx) packet 17 g 17 g, FT, BID Given, 17 g at 09/18 817 protein supplement feeding tube flush (PROSOURCE TF) 3 oz 3 oz, FT, BID Given, 3 oz at 09/18 1030 senna-docusate (SENNA-S) 8.6-50 MG tablet 2 tablet 2 tablet, FT, BID Given, 2 tablet at 09/18 817 thiamine (VITAMIN B-1) injection 100 mg 100 mg, IV, Daily Ordered [Provider Held] thiamine mononitrate (VITAMIN B-1) tablet 100 mg On hold since yesterday at 1915 until manually unheld; held by Collin Vidales Reason: NPO On hold since yesterday at 1915 until manually unheld Hold reason: NPO 100 mg, FT, Daily Given, 100 mg at 09/18 817 Continuous Medication Ordered Dose/Rate, Route, Frequency Last Action heparin (porcine) IV infusion 25,000 units in 500 mL 0.45% NaCl (premix) 10.8 Units/kg/hr, IV, Continuous Rate/Dose Verify, 9.8 Units/kg/hr at 09/19 07 PRN Medication Ordered Dose/Rate, Route, Frequency Last Action [Provider Held] acetaminophen (TYLENOL) tablet 975 mg On hold since yesterday at 1915 until manually unheld; held by ROQUE VidalesCHolamrita Reason: NPO On hold since yesterday at 1916 until manually unheld Hold reason: NPO 975 mg, PO, Q6H PRN Given, 975 mg at 09/18 1030 bisacodyl (DULCOLAX) suppository 10 mg 10 mg, RE, Daily PRN Ordered dextrose 50 % solution 12.5 g (Or Linked Group #1) 12.5 g, IV, Q15 Min PRN Ordered dextrose 50 % solution 25 g (Or Linked Group #1) 25 g, IV, Q15 Min PRN Ordered glucagon (GLUCAGEN) injection 1 mg (Or Linked Group #1) 1 mg, IM, Daily PRN Ordered glucose (GLUTOSE 15) 40 % oral gel 37.5 g (Or Linked Group #1) 1 Tube, PO, Q15 Min PRN Ordered glucose (GLUTOSE 15) 40 % oral gel 75 g (Or Linked Group #1) 2 Tube, PO, Q15 Min PRN Ordered heparin (porcine) 1000 unit/mL injection 2,800 Units 30 Units/kg, IV, Q6H PRN Ordered HYDROmorphone (DILAUDID) injection 0.5 mg 0.5 mg, IV, Q2H PRN Given, 0.5 mg at 09/18 0401 naloxone (NARCAN) 0.4 mg/mL injection 0.4 mg 0.4 mg, IV, Q5 Min PRN Ordered Sign: Britton Rodriguez PA-C 09/19/2024 8:12 AM * Mo Dickens MD - 09/19/2024 6:04 AM EDT Images from the original note were not included. Division of Pulmonary, Critical Care, and Sleep Medicine [address] [facility], [address], [place] [address] Critical Care Note Assessment 64 y.o. male with hx of Etoh use admitted on 09/07/2024 for eye swelling (admitted to OSH on 09/06/24). Course c/b thrombocytopenia, sepsis, respiratory failure - tx to on 09/07/24. Intubated on 09/08/24. Active Problems: Acute metabolic encephalopathy Cavernous sinus thrombosis Acute hypoxic respiratory failure Diffuse alveolar hemorrhage (unclear etiology) R otitis media Pulmonary edema Volume overload Hypoalbuminemia Thrombocytopenia Sepsis SIRS ARDS Lactic acidosis SVT Shock Hypotension Leukocytosis CLINT Comorbid Conditions: Active Nicotine Dependence Total LOS: 12 days Overnight Extubated yesterday Plan by System I performed rounds on the medical unit with the entire critical care team and we discussed the events below while developing the daily treatment plan: Neuro: CAM-ICU Delirium Present: Negative Dywer Agitation Sedation Scale (RASS) / Modified RASS: 0-->alert and calm Concern for seizure activity Acute metabolic encephalopathy - improving Concern for meningitis Cavernous sinus thrombosis Concern for septic thrombophlebitis Depression Alcohol use in remission for 15 years - Tylenol - Paroxitine - hold respiridone - Neurology consult - MRV - started on heparin based on results - no role for LP after discssion with ID - abx as below Resp: Unable to protect airway Acute hypoxemic respiratory failure ARDS Diffuse alveolar hemorrhage likely due to ARDS and fluid overload and thrombocytopenia - solumedrol wean to daily - monitor airway closely today given significant neuro findings to make sure he can protect his airway CV: Nonsustained VT Hypertension Severe aortic stenosis - keep even, no need for aggressive diuresis - Cardiology consult signed off for the severe aortic stenosis >Echo: TTE 09/11/2024 Left ventricular systolic function is hyperdynamic. The quantitative EF by 2D Stark biplane is 80%. Right ventricular systolic function is normal. There is likely severe aortic stenosis based on gradients and velocities. The continuity derived aortic valve area is less reliable in the setting of poor spectral signal. The peak velocity is 4.3 m/s and mean gradient is 45.7 mmHg. There is progressive calcific mitral stenosis. There is a mean transmitral gradient of 5 mmHg at a heart rate of 81 bpm. There is no previous study for comparison in our system. GI: Transaminitis-improving - c/w elevated bowel regimen - had BM yesterday - hold bowel regimen as he had large BM - [employer] eval but likely will need DHT >Nutrition: Diet/Nutrition Received: NPO No diet orders on file Renal: CLINT Hyponatremia - improved Hyperkalemia - improved - Remove Early and do void trial >Intake & Output Intake/Output Summary (Last 24 hours) at 09/19/2024 0604 Last data filed at 09/19/2024 0500 Gross per 24 hour Intake 1450.31 ml Output 600 ml Net 850.31 ml I/O last 3 completed shifts: In: 5084.5 [P.O.:200; I.V.:499.5; NG/GT:3985; IV Piggyback:400] Out: 1850 [Urine:1850] Endo: MARY Heme/Onc: Acute normocytic anemia - Heme consulted - Status post IVIG ID: HEENT infection Meningitis versus encephalitis - ID following - Continue with antibiotics as below - Neurology consult - LP not needed per Dr. Michaud as the patient has adequate meningitis encephalitis coverage - discuss with ID how long we need abx for >Antibiotics: Anti-infectives (From admission, onward) Start Dose/Rate Route Frequency Ordered Stop 09/08/24 1700 meropenem (MERREM) 1 g in sodium chloride-MBP (NS) 100 mL IVPB-MBP 1 g 33.3 mL/hr over 3 Hours Intravenous Every 8 hours 09/08/24 1640 >Recent Cultures: Culture Date Value Ref Range Status 09/16/2024 Sterile after 2 days Preliminary 09/16/2024 Sterile after 2 days Preliminary 09/08/2024 Negative after 2 days Final 09/08/2024 Preliminary No fungi isolated. Culture will be held for two weeks. 09/08/2024 Negative after 5 days Preliminary ICU Checklist Drips: heparin (porcine) IV infusion - low dose protocol, 10.8 Units/kg/hr, Last Rate: 9.8 Units/kg/hr (09/19/24 0500) Lines: Peripheral IV - Single Lumen (Adult) 09/07/24 2200 median vein (underside of arm), right 20 gauge (Active) Number of days: 12 Peripheral IV - Single Lumen (Adult) 09/12/24 0338 cephalic vein (lateral side of arm), left 22 gauge;1 in length;3/4 in length (Active) Number of days: 7 Peripheral IV - Single Lumen (Adult) 09/16/24 203 cephalic vein (lateral side of arm), right 22 gauge;1 in length;3/4 in length (Active) Number of days: 3 Restraints: Restraint Type: Unlocked Unlocked Bilateral Wrist (NV): discontinued Unlocked Bilateral Ankle (NV): continued Behaviors Observed: agitated upon awakening, pulling at lines/tubes Mobility: Progressive Mobility Level Achieved: Level 0 Early: GI Prophylaxis (if needed): None VTE Time Out IMPROVE SCORE: 2 (09/07/2024 5:40 PM) Interpretation - High Risk Chemical Prophylaxis heparin (porcine) IV infusion 25,000 units in 500 mL 0.45% NaCl (premix) Intravenous Continuous heparin (porcine) 1000 unit/mL injection 2,800 Units Intravenous Every 6 hours PRN Chemical VTE prophylaxis NOT ordered. Click here to order if appropriate Chemical Prophylaxis Contraindication: None - I will place appropriate order Heparin Sodium (Porcine) 5000 Units Last dose 09/16/2024 2:04 PM Mechanical Prophylaxis SCDs are ordered - Bilateral (Knee High) Code Status and Disposition CODE STATUS: Full DISPOSITION: ICU I spent 31 minutes of Critical Care time in multiple visits throughout the day for collaboration/coordination of care exclusive of time spent performing separately billable medical procedures. I affirm that this patient is critically ill and at high risk for sudden, fatal deterioration due to one or more of the above active issues. I managed/supervised life- or organ-supporting interventions that require frequent physician assessment and reassessment. Critical care time was spent, but not limited to, the review of laboratory test results, medications, relevant radiology and discussing this critically ill patient's care with other medical staff in the unit or at the nursing station ont floor where the patient is located. My full attention was given to the management of this patient and I was immediately available during this same time. Objective SpO2:93 %,O2 Device: room air (none), Flow (L/min) (Oxygen Therapy): 3, Temp Last 24 hrs: Temp Min: 96.8 ??F (36 ??C) Max: 101.7 ??F (38.7 ??C) WBC Trend White Blood Cell Count Date Value Ref Range Status 09/19/2024 9.9 4.0 - 11.0 Thou/uL Final 09/18/2024 11.6 (H) 4.0 - 11.0 Thou/uL Final 09/17/2024 11.9 (H) 4.0 - 11.0 Thou/uL Final 09/16/2024 11.0 4.0 - 11.0 Thou/uL Final Last Vitals: Pulse:97, Resp:(!) 29, BP:BP Min: 144/66 Max: 167/79 MAP: 86 mm Hg Physical Exam: General: Intermittent agitation; L eye extremely swollen PIV x 2 OG tube Early cath HEENT: supple without LAD Lungs: clear to auscultation bilaterally Heart: regular rate and rhythm, S1, S2 normal, no murmur, click, rub or gallop Abdomen: soft, non-tender; bowel sounds normal; no masses, no organomegaly Extremities: atraumatic, no cyanosis or edema Neuro: Moves extremities I reviewed the prescribed Medications and new Laboratory Blood Work I reviewed all new Imaging Studies (actual images) and compared to prior where applicable Sign: Mo Dickens MD 09/19/2024 6:04 AM * Pierre Michaud MD - 09/18/2024 1:15 PM EDT [facility] Progress Note Assessment & Plan Assessment Alcohol use disorder in remission for 15 years Tobacco use disorder with a [id number] history Presenting with altered mental status, left eye swelling, tongue swelling and severe right ear pain MRIs were done and the patient was sent down here It looks like he has a cavernous sinus thrombosis. 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 Bronchoscopy was done 417 culture of his ear is growing yeast and Bordetella trematum He remains on the ventilator Repeat MRI is about the same He is awake alert and following Possible extubation today Temperature is 101.7 with a white count of 11.6 and a creatinine of 1 Currently on meropenem Plan No changes Subjective Continues on the ventilator Objective Last Vitals Pulse:82,Resp:(!) 26,BP:139/65,SpO2:99 %,Weight:90 kg (198 lb 6.6 oz) Temp Last 24 hrs: Temp Min: 99.3 ??F (37.4 ??C) Max: 101.7 ??F (38.7 ??C) Last temp: (!) 100.9 ??F (38.3 ??C) (Esophageal) Physical Exam Lungs: Clear Cardiac: RRR Abdomen: +BS Soft Nontender Skin:No rash No skin lesions Anti-infectives (From admission, onward) Start Dose/Rate Route Frequency Ordered Stop 09/08/24 1700 meropenem (MERREM) 1 g in sodium chloride-MBP (NS) 100 mL IVPB-MBP 1 g 33.3 mL/hr over 3 Hours Intravenous Every 8 hours 09/08/24 1640 Intake/Output Summary (Last 24 hours) at 09/18/2024 1315 Last data filed at 09/18/2024 1200 Gross per 24 hour Intake 3705.08 ml Output 1050 ml Net 2655.08 ml Relevant data reviewed MEDICATIONS Current Facility-Administered Medications Medication Dose Route Frequency Provider Last Rate Last Admin acetaminophen (TYLENOL) tablet 975 mg 975 mg Oral Q6H PRN Daiana Guzman PA-C 975 mg at 09/18/24 1030 bisacodyl (DULCOLAX) suppository 10 mg 10 mg Rectal Daily PRN Marie Chamberlain PA-C chlorhexidine (PERIDEX) 0.12 % oral solution 15 mL 15 mL Mouth/Throat BID Korina Lai PA-C 15 mL at 09/18/24 0819 chlorhexidine gluconate 2 % wipes - urethral catheter CHG application Topical Daily Kelly Rodriguez MD 1 each at 09/16/24 0848 glucose (GLUTOSE 15) 40 % oral gel 37.5 g 1 Tube Oral Q15 Min PRN KRISTA Hobbs Or glucose (GLUTOSE 15) 40 % oral gel 75 g 2 Tube Oral Q15 Min PRN KRISTA Hobbs Or dextrose 50 % solution 12.5 g 12.5 g Intravenous Q15 Min PRN KRISTA Hobbs Or dextrose 50 % solution 25 g 25 g Intravenous Q15 Min PRN KRISTA Hobbs Or glucagon (GLUCAGEN) injection 1 mg 1 mg Intramuscular Daily PRN KRISTA Hobbs FLUoxetine (PROzac) capsule 40 mg 40 mg Oral Daily Daiana Guzman PA-C 40 mg at 09/18/24 1034 folic acid (FOLVITE) tablet 1 mg 1 mg Feeding Tube Daily Shira Bonilla PA-C 1 mg at 09/18/24 0818 heparin (porcine) 1000 unit/mL injection 2,800 Units 30 Units/kg Intravenous Q6H PRN Daiana Guzman PA-C heparin (porcine) IV infusion 25,000 units in 500 mL 0.45% NaCl (premix) 10.8 Units/kg/hr Intravenous Continuous Daiana Guzman PA-C 12.634 mL/hr at 09/18/24 1200 6.8 Units/kg/hr at 09/18/24 1200 HYDROmorphone (DILAUDID) injection 0.5 mg 0.5 mg Intravenous Q2H PRN Shira Bonilla PA-C 0.5 mg at 09/18/24 0401 insulin lispro (HumaLOG/ADMELOG) 100 units/mL injection 3-11 Units 3-11 Units Subcutaneous Q4H [facility] KRISTA Hobbs 4 Units at 09/18/24 1159 lactulose (ENULOSE) 10 gm/15 mL solution 20 g 20 g OG Tube BID ROQUE Bautista 20 g at 09/18/24 1031 meropenem (MERREM) 1 g in sodium chloride-MBP (NS) 100 mL IVPB-MBP 1 g Intravenous Q8H aMrie Chamberlain PA-C 33.3 mL/hr at 09/18/24 0819 1 g at 09/18/24 0819 methylPREDNISolone sodium succinate (SOLU-Medrol) injection 40 mg 40 mg Intravenous Q12H [facility] Shira Bonilla PA-C metoPROLOL TARTRATE (LOPRESSOR) tablet 50 mg 50 mg Feeding Tube Q12H [facility] KRISTA Modi 50 mg at 09/18/24 0817 multivitamin with minerals (CEROVITE) liquid 15 mL 15 mL Feeding Tube Daily Shira Bonilla PA-C 15 mL at 09/18/24 0819 naloxegol (MOVANTIK) tablet 25 mg 25 mg Feeding Tube Daily before breakfast Marie Chamberlain PA-C 25 mg at 09/18/24 0818 naloxone (NARCAN) 0.4 mg/mL injection 0.4 mg 0.4 mg Intravenous Q5 Min PRN Marie Chamberlain PA-C nicotine (NICODERM CQ) 21 MG/24HR patch 1 patch 1 patch Transdermal Daily KRISTA Bedolla 1patch at 09/18/24 0817 nystatin (MYCOSTATIN) [id number] UNIT/ML suspension 500,000 Units 500,000 Units Oral 4x Daily Shira Bonilla PA-C 500,000 Units at 09/18/24 1200 polyethylene glycol (miraLAx) packet 17 g 17 g Feeding Tube BID Marie Chamberlain PA-C 17 g at 09/18/24 0818 protein supplement feeding tube flush (PROSOURCE TF) 3 oz 3 oz Feeding Tube BID Lucia Cerdason, RD 3 oz at 09/18/24 1030 senna-docusate (SENNA-S) 8.6-50 MG tablet 2 tablet 2 tablet Feeding Tube BID ROQUE NagyC2 tablet at 09/18/24 0818 thiamine mononitrate (VITAMIN B-1) tablet 100 mg 100 mg Feeding Tube Daily Shira Bonilla PA-C 100 mg at 09/18/24 0818 Notable labs are: Lab Results Component Value Date WBC 11.6 (H) 09/18/2024 HGB 7.4 (L) 09/18/2024 HCT 22.5 (L) 09/18/2024 PLT 240 09/18/2024 Lab Results Component Value Date AST 41 2024 ALT 83 (H) 2024 ALKPHOS 58 2024 BILITOT 1.8 (H) 2024 BILIDIR 1.2 (H) 2024 ALBUMIN 2.3 (L) 09/17/2024 PROT 7.1 2024 Lab Results Component Value Date CREAT 1.0 09/18/2024 Blood Cultures: Lab Results Component Value Date CULTURE Sterile after 2 days 09/16/2024 CULTURE Sterile after 2 days 09/16/2024 Urine Cultures: No results found for: CRYSUA , HYALNCSTUA , UROBILINOGEN , BILIUA , BLOODUA , CLARITYUA , COLORUA , UACOMMENT , GLUCU , KETONESUA , LEUKOCYTESUA , NITRITEUA , PHUA , PROTEINUA , RBCUA , SPECIMEN , SPECGRAVUA , SQEPIUA , WBCUA No components found for: WOUND C. Difficile: No results found for: CDIFFTOX , NAP1 Sign Pierre Michaud MD 09/18/2024 1:15 PM Pierre Michaud * Daiana Guzman PA-C - 09/18/2024 7:46 AM EDT Critical Care Progress Note Subjective Overnight events: - No acute ON events Assessment & Plan Assessment: Mariah Masterson is a 63 year old male with PMHx of depression, alcohol abuse, tobacco use who presented to OSH for concern of left eye swelling, tongue swelling, right ear pain, and decreased visual acuity of left eye. He was ultimately transferred to for ENT, ophthalmology, ID, neuro consults. He was admitted for further management of cavernous sinus thrombosis with course complicated by worsening hypoxia with concern for diffuse alveolar hemorrhage in the setting of ARDS. MRI with meningitis/encephalitis. 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 Discussed with ID and no LP needed as already covered on meropenem, low-dose heparin drip recommended for bilateral IJ thrombus on MRV - SW consulted for help with HCR (daughter next of kin but estranged 30 years; mom and sister in chart) - s/p LTM, negative for seizures - Stop Diludid gtt - d/c PRN Haldol - d/c PRN Seroquel - Resume home Fluoxetine 40mg daily LTM: Monitoring Day 1: 09/16/2024 - Nonspecific, moderate to severe encephalopathy. Monitoring Day 2: 09/17/2024 - Nonspecific, moderate to severe encephalopathy. MRV 09/16: Redemonstration of nonocclusive filling defects within the proximal internal jugular veins. No other partial or complete occlusion. MRI Brain (09/12): 1. Similar pattern of inflammatory change (better described on CTA head and neck performed same day) about the left orbit with thrombus within the enlarged left superior ophthalmic vein, nonocclusive thrombus in the cavernous sinus bilaterally and venous structures about the middle cranial fossa as noted above (not conspicuous on CTA head and neck), with nonocclusive thrombus bilateral internal jugular veins, etiology is uncertain. 2. Hyperintense signal along the sulci of the frontoparietal and occipital lobes without enhancement. 3. Nonenhancing debris demonstrating diffusion restriction and slight FLAIR hyperintensity within the occipital horns with trace hemosiderin. 4. Right-sided otomastoiditis. 5. Right temporal scalp and temporalis contusion. CTA Head/neck (09/12): 1. Similar appearance of soft tissue changes about the left orbit without definitive filling defect within the left cavernous sinus. 2. No acute intracranial process. 3.Intact anterior and posterior circulations without dissection, major branch occlusion, aneurysm, or vascular malformation. 4. No dissection or high grade stenosis of the carotid or vertebral systems. 5. Scattered groundglass opacities and pneumatoceles imaged lungs with subsegmental foci of consolidation, correlate clinically, infectious versus inflammatory. ENT: Right sided otomastoiditis, left eye swelling (improving), - Ear culture (09/07): + rubi parapsilosis, bordetella species - S/p ciprodex otic drops, hydrocortisone-aceitic acid otic drops - ENT following - reviewed most recent imaging but no clinical evidence of mastoiditis so no changes to plan - Ophthalmology consulted, given no light perception in left eye, poor visual prognosis; no acute interventions recommended to help with left eye vision, no evidence of R eye involvement. Left visionloss maybe likely to thrombosis disrupting blood-flow or involvement of the orbital apex or posterior ischemic optic neuropathy given unremarkable fundus exam, normal IOP () and non- edematous opticnerve Behavioral/Sedation scales CAM-ICU Delirium Present: Negative Dwyer Agitation Sedation Scale (RASS) / Modified RASS: -1-->Wakes easily, drowsy Resp: Acute hypoxic respiratory failure 2/2 ARDS, concern for diffuse alveolar hemorrhage - SpO2 99% on below vent settings - Bronchoscopy on 09/08; findings consistent with DAH; cultures negative to date - Intubated on 09/08 - VBG 09/15: 7.43/50/34 after being on SBT overnight - Tolerated minimals x 7 hours yesterday - Wean solu-medrol 40mg q8h to q12h; s/p 3 days of pulse dose steroids (1g/day) - ZEEP today with mechanics for possible for extubation Vasculitis labs: - Glomerular basement membrane Ab negative - Lupus anticoagulant not detected -CCP Ab negative, dsDNA negative, complement C3 85, C4 10 (L) - myeloperoxidase Ab, proteinase-3 Ab, ANCA negative - RF pending Current vent settings: Ventilation Mode (Drager V500): PC-AC (09/18 208) Rate Set (breaths/min) (Drager V500): 12 (09/18 208) Pressure Set (cmH2O): 18 (09/18 208) Oxygen Concentration (%) (Drager V500): 40 (09/18 208) PEEP (cmH2O) (Drager V500): 6 (09/18 208) CT Thorax (09/08): 1. Diffuse interlobular septal thickening, with scattered [...] 3.1 cm, may represent pericardial fluid/pericardial cyst. CXR 09/08: Mild interval improvement in bilateral airspace opacities. CV: non- sustained VT, hypertension (improved), severe aortic stenosis - SBP 100s to 140s, HR 70s to 100s - HS trop (09/07): 22 - ProBNP: 486 (2219) - EKG (09/15): Sinus tachycardia with PVCs, RBBB, Qtc 494 - Continue lopressor 50mg Q12h - [facility] cardiology consulted for new severe aortic stenosis - signed off until more stable - s/p IV lasix 40mg x 1 yesterday to keep net - ECHO 09/11/24: Left ventricular systolic function is hyperdynamic. The quantitative EF by 2D Stark biplane is 80%. Right ventricular systolic function is normal. There is likely severe aortic stenosis based on gradients and velocities. The continuity derived aortic valve area is less reliable in the setting of poor spectral signal. The peak velocity is 4.3 m/s and mean gradient is 45.7 mmHg. There is progressive calcific mitral stenosis. There is a mean transmitral gradient of 5 mmHg at a heart rate of 81 bpm. There is no previous study for comparison in our system. GI: Transaminitis (improving), lactic acidosis (resolved) - Diet: Osmolite 1.5 with FWF 300cc Q4h - LFTs: t.bili 1.8 (2.4), d.bili 1.2 (1.6), AST/ALT 41/83 (38/94), Alk phos 58 (59) - Lactic acid (09/07): 1.9 (5.4 at OSH) - CT A/P at OSH with hepatosplenomegaly, distended gallbladder, thickening of the adrenal glands, bilateral perinephric stranding, distended stomach with air- fluid level. - x1 BM/24hrs, continue bowel reg w/ movantik. Renal: CLINT, hypernatremia, hyperkalemia (improved) - BUN/Cr 55/1.0 (57/1.1) - Na 145,FWF @300 Q4h - remainder of lytes stable - UOP 1.8L, net + 2.1L Early: no Intake & Output Intake/Output Summary (Last 24 hours) at 09/18/2024 0746 Last data filed at 09/18/2024 0600 Gross per 24 hour Intake 3979.96 ml Output 1850 ml Net 2129.96 ml Endo: No active issues - BG 120-200s - A1c 5.8 - TSH 0.80 - check FS q4h while on TF - Continue SUZE - hypoglycemia protocol Heme/Onc: Acute normocytic anemia, Thrombocytopenia with c/f secondary ITP (improving) - H/H 7.4/22.5 (7.3/22.6) - Plt 240 (221) - Coags (09/08): INR 1.3, aPTT 27, fibrinogen 579, thrombin time 12.2 - Heme Onc following - 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 Findings are not consistent with the presence of deep vein thrombosis bilaterally. Lower Extremity Doppler 09/08/24: Bilaterally, the duplex ultrasound of the lower extremities demonstrates normal Doppler flow with no thrombus seen in patterson scale. Findings are not consistent with the presence of deep vein thrombosisbilaterally. ID: HEENT infection, likely meningitis/encephalitis - Tmax 100.8, WBC 11.6 (11.9) - UA at OSH positive for nitrites and trace LE no bacteria - fluvid negative - legionella prelim negative - PJP negative - right ear culture (09/07) - yeast and bordetella trematum - blood cx OSH - GNR - blood cultures (09/07): negative - repeat blood cx 09/16: NGTD - bronch cultures (09/08): no growth to date - MRSA swab (09/07) negative - urine strep presumptive positive - LP not needed per Dr. Michaud, already has been on coverage for meningitis/encephalitis - Continue meropenem (09/08-) - Dr. Michaud following Vascular access: PIV IV access Mobility: Progressive Mobility Level Achieved: Level 0,PT/OT: Yes GI PPx: none DVT PPx: PAS and Heparin drip VTE Risk Assessment VTE Time Out IMPROVE SCORE: 2 (09/07/2024 5:40 PM) Interpretation - High Risk Chemical Prophylaxis heparin (porcine) IV infusion 25,000 units in 500 mL 0.45% NaCl (premix) Intravenous Continuous heparin (porcine) 1000 unit/mL injection 2,800 Units Intravenous Every 6 hours PRN Heparin Sodium (Porcine) 5000 Units Last dose 09/16/2024 2:04 PM Mechanical Prophylaxis SCDs are ordered - Bilateral (Knee High) Drips: heparin (porcine) IV infusion - low dose protocol, 10.8 Units/kg/hr, Last Rate: 6.8 Units/kg/hr (09/18/24 0600) HYDROmorphone, 0.2 mg/hr, Last Rate: 0.2 mg/hr (09/18/24 0600) Lines: Peripheral IV - Single Lumen (Adult) 09/07/24 2200 median vein (underside of arm), right 20 gauge (Active) Number of days: 11 Peripheral IV - Single Lumen (Adult) 09/12/24 0338 cephalic vein (lateral side of arm), left 22 gauge;1 in length;3/4 in length (Active) Number of days: 6 Peripheral IV - Single Lumen (Adult) 09/16/24 2032 cephalic vein (lateral side of arm), right 22 gauge;1 in length;3/4 in length (Active) Number of days: 2 Enteric Access and Early: External Catheter 09/17/24 1040 (Active) Number of days: 1 Naso/Orogastric Tube (Adult) 09/08/24 1100 [place]ancock sump 18 Fr mouth, center (Active) Number of days: 10 Restraints: soft wrists bilaterally Interference with medical treatment Code: FULL Dispo: ICU, per Dr. Dickens Objective Last Vitals: Pulse:86, Resp:(!) 22, BP:BP Min: 113/56 Max: 148/71 MAP: 86 mm Hg SpO2:99 % CVP: Temp Last 24 hrs: Temp Min: 99.3 ??F (37.4 ??C) Max: 101.5 ??F (38.6 ??C) Physical Exam: General appearance: adult male, laying in bed, intubated, NAD HEENT: significant subconjunctival hemorrhage noted on left eye, no light perception or accomodation; no right eye involvement; R pupil reactive to light but sluggish Lungs: diminished lung sounds throughout Heart: RRR, S1S2, murmur present Abdomen: + bowel sounds, abdomen soft, non-distended Extremities: no peripheral edema, pulses 2+ at radius and DP Neurologic: opens eyes, tracks, following commands x all four extremities, nodding yes/no appropriately Labs: Recent Labs 09/15/24 2328 09/16/24 1707 09/16/24 1843 09/17/24 0030 09/18/24 0010 WBC 12.8* Test not performed due to insufficient quantity of specimen. 11.0 11.9* 11.6* HGB 7.9* Test not performed due to insufficient quantity of specimen. 8.1* 7.3* 7.4* HCT 24.1* Test not performed due to insufficient quantity of specimen. 24.4* 22.6* 22.5* PLT 190 Test not performed due to insufficient quantity of specimen. 238 221 240 MCV 96 Test not performed due to insufficient quantity of specimen. 96 97 97 MCH 31.5* Test not performed due to insufficient quantity of specimen. 32.0* 31.2* 31.9* MCHC 32.8 Test not performed due to insufficient quantity of specimen. 33.2 32.3 32.9 RDW 12.3 Test not performed due to insufficient quantity of specimen. 13.2 13.4 14.6* Recent Labs 09/15/24 1242 09/15/24 2328 09/16/24 1616 09/17/24 0030 09/17/24 1511 09/18/24 0010 BUN 54* 55* -- 65* 57* 55* CREAT 1.1 1.1 -- 1.4* 1.1 1.0 NA 145 146* 147* 142 147* 145 K 5.4* 4.9 -- 4.6 3.8 4.2 CO2 31 28 -- 25 22 23 CL 109* 111* -- 110* 116* 116* MG 2.6 2.5 -- 2.7 2.5 2.7 PHOS 4.5 3.6 -- 4.1 3.5 2.7 Recent Labs 09/16/24 1707 PTT 24* INR 1.2 Medications Medication/MAR Report: Medications Scheduled Medication Ordered Dose/Rate, Route, Frequency Last Action chlorhexidine (PERIDEX) 0.12 % oral solution 15 mL 15 mL, MT, BID Given, 15 mL at 09/17 2052 chlorhexidine gluconate 2 % wipes - urethral catheter CHG application No Dose/Rate, TOP, Daily Given, 1 each at 09/16 08 folic acid (FOLVITE) tablet 1 mg 1 mg, FT, Daily Given, 1 mg at 09/17 08 insulin lispro (HumaLOG/ADMELOG) 100 units/mL injection 3-11 Units 3-11 Units, SC, Q4H ZO Given, 4 Units at 09/18 0356 lactulose (ENULOSE) 10 gm/15 mL solution 20 g 20 g, PER OG TUBE, BID Given, 20 g at 09/17 2052 meropenem (MERREM) 1 g in sodium chloride-MBP (NS) 100 mL IVPB-MBP 1 g, IV, Q8H New Bag, 1 g at 09/18 8 methylPREDNISolone sodium succinate (SOLU-Medrol) injection 40 mg 40 mg, IV, Q8H ZO Given, 40 mg at 09/18 610 metoPROLOL TARTRATE (LOPRESSOR) tablet 50 mg 50 mg, FT, Q12H ZO Given, 50 mg at 09/17 2053 multivitamin with minerals (CEROVITE) liquid 15 mL 15 mL, FT, Daily Given, 15 mL at 09/17 805 naloxegol (MOVANTIK) tablet 25 mg 25 mg, FT, Daily before breakfast Given, 25 mg at 09/17 805 nicotine (NICODERM CQ) 21 MG/24HR patch 1 patch 1 patch, TD, Daily Patch Applied, 1 patch at 09/17 840 nystatin (MYCOSTATIN) [id number] UNIT/ML suspension 500,000 Units 500,000 Units, PO, 4x Daily Given, 500,000 Units at 09/18 2151 polyethylene glycol (miraLAx) packet 17 g 17 g, FT, BID Given, 17 g at 09/17 2052 protein supplement feeding tube flush (PROSOURCE TF) 3 oz 3 oz, FT, BID Given, 3 oz at 09/17 2208 [Provider Held] QUEtiapine (SEROquel) tablet 100 mg On hold since Wed2024 at 1227 until manually unheld; held by Collin Bautista Reason: Other - Comment requiredHold Comment: Heavily sedated On hold since Wed2024 at 1227 until manually unheld (Needs Review) Hold reason: Other - Comment required, Hold comment: Heavily sedated 100 mg, FT, Nightly Given, 100 mg at 09/14 2017 [Provider Held] QUEtiapine (SEROquel) tablet 50 mg On hold since Wed2024 at 1227 until manually unheld; held by Collin Bautista Reason: Other - Comment required On hold since Wed2024 at 1227 until manually unheld (Needs Review) Hold reason: Other - Comment required 50 mg, FT, BID Given, 50 mg at 09/15 08 senna-docusate (SENNA-S) 8.6-50 MG tablet 2 tablet 2 tablet, FT, BID Given, 2 tablet at 09/17 2053 thiamine mononitrate (VITAMIN B-1) tablet 100 mg 100 mg, FT, Daily Given, 100 mg at 09/17 0805 Continuous Medication Ordered Dose/Rate, Route, Frequency Last Action heparin (porcine) IV infusion 25,000 units in 500 mL 0.45% NaCl (premix) 10.8 Units/kg/hr, IV, Continuous Rate/Dose Verify, 6.8 Units/kg/hr at 09/18 0600 HYDROmorphone (DILAUDID) IV infusion 50 mg in 50 mL NS (1 mg/mL) (premix) 0.2 mg/hr, IV, Continuous Rate/Dose Verify, 0.2 mg/hr at 09/18 0600 PRN Medication Ordered Dose/Rate, Route, Frequency Last Action acetaminophen (TYLENOL) tablet 975 mg 975 mg, PO, Q6H PRN Given, 975 mg at 09/18 0401 bisacodyl (DULCOLAX) suppository 10 mg 10 mg, RE, Daily PRN Ordered dextrose 50 % solution 12.5 g (Or Linked Group #1) 12.5 g, IV, Q15 Min PRN Ordered dextrose 50 % solution 25 g (Or Linked Group #1) 25 g, IV, Q15 Min PRN Ordered glucagon (GLUCAGEN) injection 1 mg (Or Linked Group #1) 1 mg, IM, Daily PRN Ordered glucose (GLUTOSE 15) 40 % oral gel 37.5 g (Or Linked Group #1) 1 Tube, PO, Q15 Min PRN Ordered glucose (GLUTOSE 15) 40 % oral gel 75 g (Or Linked Group #1) 2 Tube, PO, Q15 Min PRN Ordered haloperidol lactate (HALDOL) 5 mg/mL injection 5 mg 5 mg, IV, Q2H PRN Given, 5 mg at 09/12 2256 heparin (porcine) 1000 unit/mL injection 2,800 Units 30 Units/kg, IV, Q6H PRN Ordered HYDROmorphone (DILAUDID) injection 0.5 mg 0.5 mg, IV, Q2H PRN Given, 0.5 mg at 09/18 0401 naloxone (NARCAN) 0.4 mg/mL injection 0.4 mg 0.4 mg, IV, Q5 Min PRN Ordered Sign: Daiana Guzman PA-C 09/18/2024 7:46 AM * Mo Dickens MD - 09/18/2024 6:11 AM EDT Images from the original note were not included. Division of Pulmonary, Critical Care, and Sleep Medicine [address] [facility], [address], [place] [address] Critical Care Note Assessment 64 y.o. male with hx of Etoh use admitted on 09/07/2024 for eye swelling (admitted to OSH on 09/06/24). Course c/b thrombocytopenia, sepsis, respiratory failure - tx to HH on 09/07/24. Intubated on 09/08/24. Active Problems: Acute metabolic encephalopathy Cavernous sinus thrombosis Acute hypoxic respiratory failure Diffuse alveolar hemorrhage (unclear etiology) R otitis media Pulmonary edema Volume overload Hypoalbuminemia Thrombocytopenia Sepsis SIRS ARDS Lactic acidosis SVT Shock Hypotension Leukocytosis CLINT Comorbid Conditions: Active Nicotine Dependence Total LOS: 11 days Overnight Waking up and following commands this AM Plan by System I performed rounds on the medical unit with the entire critical care team and we discussed the events below while developing the daily treatment plan: Neuro: CAM-ICU Delirium Present: Negative Dwyer Agitation Sedation Scale (RASS) / Modified RASS: -1-->Wakes easily, drowsy Concern for seizure activity Acute metabolic encephalopathy - improving Concern for meningitis Cavernous sinus thrombosis Concern for septic thrombophlebitis Depression Alcohol use in remission for 15 years - Tylenol - Haldol - restart paroxitine - hold respiridone - Neurology consult - EEG - MRV - started on heparin based on results - wean Sedation - no role for LP after discssion with ID - abx as below Resp: Ventilator Start 09/08/24 0935 (Active) Number of days: 10 Ventilation Mode (Drager V500): PC-AC Rate Set (breaths/min) (Drager V500): 12 Pressure Set (cmH2O): 18 Oxygen Concentration (%) (Drager V500): 40 PEEP (cmH2O) (Drager V500): 6 Unable to protect airway Acute hypoxemic respiratory failure ARDS Diffuse alveolar hemorrhage likely due to ARDS and fluid overload and thrombocytopenia - Vasculitis labs pending - Vent Management: - Daily SBT-SAT if meets criteria from protocol - lung protective ventilation TV 6-8cc/kg ideal body wt - maintain plt pressure <30 and driving pressure <15 if able, but also assure adequate ventilation - mental status is barrier to extubation but it is improving - will need 0/0 before extubation as well - get mechanics - consider extubation if doing well on all of the above - solumedrol wean CV: Nonsustained VT Hypertension Severe aortic stenosis - make slightly negative today with lasix - Cardiology consult signed off for the severe aortic stenosis >Echo: TTE 09/11/2024 Left ventricular systolic function is hyperdynamic. The quantitative EF by 2D Stark biplane is 80%. Right ventricular systolic function is normal. There is likely severe aortic stenosis based on gradients and velocities. The continuity derived aortic valve area is less reliable in the setting of poor spectral signal. The peak velocity is 4.3 m/s and mean gradient is 45.7 mmHg. There is progressive calcific mitral stenosis. There is a mean transmitral gradient of 5 mmHg at a heart rate of 81 bpm. There is no previous study for comparison in our system. GI: Transaminitis-improving - c/w elevated bowel regimen - had BM yesterday - Lactulose - Enema >Nutrition: Diet/Nutrition Received: NPO, tube feeding Diet, Tube Feeding, No Tray Continuous; OG Tube; Osmolite 1.5; 20 mL; 65 mL/hr; x23 hrs (hold 1 hour before movantik administration); Water; Every 4 hours; 300; NPO Renal: CLINT Hyponatremia Hyperkalemia - Remove Early and do void trial >Intake & Output Intake/Output Summary (Last 24 hours) at 09/18/2024 0611 Last data filed at 09/18/2024 0500 Gross per 24 hour Intake 4047.92 ml Output 1850 ml Net 2197.92 ml I/O last 3 completed shifts: In: 6456.3 [P.O.:90; I.V.:582.3; NG/GT:5384; IV Piggyback:400] Out: 2875 [Urine:2875] Endo: MARY Heme/Onc: Acute normocytic anemia There was cytopenia - Heme consulted - Status post IVIG ID: HEENT infection Meningitis versus encephalitis - ID following - Continue with antibiotics as below - Neurology consult - LP not needed per Dr. Michaud as the patient has adequate meningitis encephalitis coverage >Antibiotics: Anti-infectives (From admission, onward) Start Dose/Rate Route Frequency Ordered Stop 09/08/24 1700 meropenem (MERREM) 1 g in sodium chloride-MBP (NS) 100 mL IVPB-MBP 1 g 33.3 mL/hr over 3 Hours Intravenous Every 8 hours 09/08/24 1640 >Recent Cultures: Culture Date Value Ref Range Status 09/16/2024 Sterile <24 hours Preliminary 09/16/2024 Sterile <24 hours Preliminary 09/08/2024 Negative after 2 days Final 09/08/2024 Preliminary No fungi isolated. Culture will be held for two weeks. 09/08/2024 Negative after 5 days Preliminary ICU Checklist Drips: heparin (porcine) IV infusion - low dose protocol, 10.8 Units/kg/hr, Last Rate: 6.8 Units/kg/hr (09/18/24 0500) HYDROmorphone, 0.2 mg/hr, Last Rate: 0.2 mg/hr (09/18/24 0500) Lines: Peripheral IV - Single Lumen (Adult) 09/07/24 2200 median vein (underside of arm), right 20 gauge (Active) Number of days: 11 Peripheral IV - Single Lumen (Adult) 09/12/24 0338 cephalic vein (lateral side of arm), left 22 gauge;1 in length;3/4 in length (Active) Number of days: 6 Peripheral IV - Single Lumen (Adult) 09/16/24 2032 cephalic vein (lateral side of arm), right 22 gauge;1 in length;3/4 in length (Active) Number of days: 2 Restraints: Restraint Type: Unlocked Unlocked Bilateral Wrist (NV): continued Unlocked Bilateral Ankle (NV): continued Behaviors Observed: pulling at lines/tubes Mobility: Progressive Mobility Level Achieved: Level 0 Early: GI Prophylaxis (if needed): None VTE Time Out IMPROVE SCORE: 2 (09/07/2024 5:40 PM) Interpretation - High Risk Chemical Prophylaxis heparin (porcine) IV infusion 25,000 units in 500 mL 0.45% NaCl (premix) Intravenous Continuous heparin (porcine) 1000 unit/mL injection 2,800 Units Intravenous Every 6 hours PRN Chemical VTE prophylaxis NOT ordered. Click here to order if appropriate Chemical Prophylaxis Contraindication: None - I will place appropriate order Heparin Sodium (Porcine) 5000 Units Last dose 09/16/2024 2:04 PM Mechanical Prophylaxis SCDs are ordered - Bilateral (Knee High) Code Status and Disposition CODE STATUS: Full DISPOSITION: ICU I spent 32 minutes of Critical Care time in multiple visits throughout the day for collaboration/coordination of care exclusive of time spent performing separately billable medical procedures. I affirm that this patient is critically ill and at high risk for sudden, fatal deterioration due to one or more of the above active issues. I managed/supervised life- or organ-supporting interventions that require frequent physician assessment and reassessment. Critical care time was spent, but not limited to, the review of laboratory test results, medications, relevant radiology and discussing this critically ill patient's care with other medical staff in the unit or at the nursing station [facility] floor where the patient is located. My full attention was given to the management of this patient and I was immediately available during this same time. Objective SpO2:100 %,O2 Device: ventilator, , Oxygen Concentration (%): 40 Oxygen Concentration (%) (Drager V500): 40 Temp Last 24 hrs: Temp Min: 99.3 ??F (37.4 ??C) Max: 101.5 ??F (38.6 ??C) WBC Trend White Blood Cell Count Date Value Ref Range Status 09/18/2024 11.6 (H) 4.0 - 11.0 Thou/uL Final 09/17/2024 11.9 (H) 4.0 - 11.0 Thou/uL Final 09/16/2024 11.0 4.0 - 11.0 Thou/uL Final 09/16/2024 4.0 - 11.0 Thou/uL Final Test not performed due to insufficient quantity of specimen. Last Vitals: Pulse:87, Resp:20, BP:BP Min: 113/56 Max: 148/71 MAP: 86 mm Hg Physical Exam: General: Intermittent agitation; ETT in place; L eye extremely swollen PIV x 2 OG tube Early cath HEENT: supple without LAD Lungs: clear to auscultation bilaterally Heart: regular rate and rhythm, S1, S2 normal, no murmur, click, rub or gallop Abdomen: soft, non-tender; bowel sounds normal; no masses, no organomegaly Extremities: atraumatic, no cyanosis or edema Neuro: Moves extremities I reviewed the prescribed Medications and new Laboratory Blood Work I reviewed all new Imaging Studies (actual images) and compared to prior where applicable Sign: Mo Dickens MD 09/18/2024 6:11 AM * Daiana Guzman PA-C - 09/17/2024 6:42 AM EDT Critical Care Progress Note Subjective Overnight events: - FWF decreased q4 hours, sodium 142 -LTM without evidence of seizures Assessment & Plan Assessment: Mariah Masterson is a 63 year old male with PMHx of depression, alcohol abuse, tobacco use who presented to OSH for concern of left eye swelling, tongue swelling, right ear pain, and decreased visual acuity of left eye. He was ultimately transferred to for ENT, ophthalmology, ID, neuro consults. He was admitted for further management of cavernous sinus thrombosis with course complicated by worsening hypoxia with concern for diffuse alveolar hemorrhage in the setting of ARDS. MRI with meningitis/encephalitis. 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) - Mental status: weakly opening eyes to voice, weakly following commands in all four extremities - Spot EEG for intermittent twitching suggestive of severe encephalopathy, no seizures however interpretation limited d/t lack of video review - Dilaudid gtt 0.5 with 0.5mg and Q2h PRN (x 0 overnight) - Continue haldol 5mg q2h PRN (x 0 overnight) - Continue tylenol 975 mg q6h PRN for fevers (x2 overnight) -Persistently febrile despite scheduled Tylenol, s/p IV ibuprofen 400 mg x 1 yesterday without improvement - Continue with nicotine patch - active smoker - Hold seroquel 50mg BID, 100mg nightly - Holding home paroxetine 40mg daily and risperidone 0.5 BID - Neuro re-engaged - they believe MRI shows ventriculitis with pus in the ventricles likely representing meningitis. Discussed with ID and no LP needed as already covered on meropenem, low-dose heparin drip recommended for bilateral IJ thrombus on MRV - SW consulted for help with HCR (daughter next of kin but estranged 30 years; mom and sister in chart) - May need to set up family meeting next week, prognosis is guarded - Will reach out to need neuro prognostication - D/C LTM, negative for seizures - Stop Ketamine LTM: Monitoring Day 1: 09/16/2024 - Nonspecific, moderate to severe encephalopathy. Monitoring Day 2: 09/17/2024 - Nonspecific, moderate to severe encephalopathy. MRV 09/16: Redemonstration of nonocclusive filling defects within the proximal internal jugular veins. No other partial or complete occlusion. MRI Brain (09/12): 1. Similar pattern of inflammatory change (better described on CTA head and neck performed same day) about the left orbit with thrombus within the enlarged left superior ophthalmic vein, nonocclusive thrombus in the cavernous sinus bilaterally and venous structures about the middle cranial fossa as noted above (not conspicuous on CTA head and neck), with nonocclusive thrombus bilateral internal jugular veins, etiology is uncertain. 2. Hyperintense signal along the sulci of the frontoparietal and occipital lobes without enhancement. 3. Nonenhancing debris demonstrating diffusion restriction and slight FLAIR hyperintensity within the occipital horns with trace hemosiderin. 4. Right-sided otomastoiditis. 5. Right temporal scalp and temporalis contusion. CTA Head/neck (09/12): 1. Similar appearance of soft tissue changes about the left orbit without definitive filling defect within the left cavernous sinus. 2. No acute intracranial process. 3.Intact anterior and posterior circulations without dissection, major branch occlusion, aneurysm, or vascular malformation. 4. No dissection or high grade stenosis of the carotid or vertebral systems. 5. Scattered groundglass opacities and pneumatoceles imaged lungs with subsegmental foci of consolidation, correlate clinically, infectious versus inflammatory. ENT: Right sided otomastoiditis, left eye swelling (improving), - Ear culture (09/07): + rubi parapsilosis, bordetella species - S/p ciprodex otic drops, hydrocortisone-aceitic acid otic drops - ENT following - reviewed most recent imaging but no clinical evidence of mastoiditis so no changes to plan - Ophthalmology consulted, given no light perception in left eye, poor visual prognosis; no acute interventions recommended to help with left eye vision, no evidence of R eye involvement. Left visionloss maybe likely to thrombosis disrupting blood-flow or involvement of the orbital apex or posterior ischemic optic neuropathy given unremarkable fundus exam, normal IOP (22) and non- edematous opticnerve Behavioral/Sedation scales CAM-ICU Delirium Present: Positive Dwyer Agitation Sedation Scale (RASS) / Modified RASS: -3-->Difficult to wake/moderate sedation Resp: Acute hypoxic respiratory failure 2/2 ARDS, concern for diffuse alveolar hemorrhage - SpO2 98% on below vent settings - Bronchoscopy on 09/08; findings consistent with DAH; cultures negative to date - Intubated on 09/08 - VBG 09/15: 7.43/50/34 after being on SBT overnight - Has been tolerating PS/CPAP 6/5 40%, mental status remains barrier to extubation - Will continue with 2hrs SBT daily until closer to extubation, rest on vent otherwise - Continue solu-medrol 40mg q8h; s/p 3 days of pulse dose steroids (1g/day) Vasculitis labs: - Glomerular basement membrane Ab negative - Lupus anticoagulant not detected -CCP Ab negative, dsDNA negative, complement C3 85, C4 10 (L) - myeloperoxidase Ab, proteinase-3 Ab, ANCA negative - RF pending Current vent settings: Ventilation Mode (Drager V500): PC-AC (09/17 208) Rate Set (breaths/min) (Drager V500): 12 (09/17 208) Pressure Set (cmH2O): 18 (09/17 208) Oxygen Concentration (%) (Drager V500): 40 (09/17 208) PEEP (cmH2O) (Drager V500): 6 (09/17 208) CT Thorax (09/08): 1. Diffuse interlobular septal thickening, with scattered [...] 3.1 cm, may represent pericardial fluid/pericardial cyst. CXR 09/08: Mild interval improvement in bilateral airspace opacities. CV: non- sustained VT, hypertension (improved), severe aortic stenosis - SBP 100s to 120s, HR 70s to 100s - HS trop (09/07): 22 - ProBNP: 486 (2219) - EKG (09/15): Sinus tachycardia with PVCs, RBBB, Qtc 494 - Continue lopressor 50mg Q12h - [facility] cardiology consulted for new severe aortic stenosis - signed off until more stable - Give IV Lasix 40mg x 1 to keep net negative ECHO 09/11/24: Left ventricular systolic function is hyperdynamic. The quantitative EF by 2D Stark biplane is 80%. Right ventricular systolic function is normal. There is likely severe aortic stenosis based on gradients and velocities. The continuity derived aortic valve area is less reliable in the setting of poor spectral signal. The peak velocity is 4.3 m/s and mean gradient is 45.7 mmHg. There is progressive calcific mitral stenosis. There is a mean transmitral gradient of 5 mmHg at a heart rate of 81 bpm. There is no previous study for comparison in our system. GI: Transaminitis (improving), lactic acidosis (resolved) - Diet: Osmolite 1.5 with FWF 250cc Q4h - LFTs: t.bili 1.8 (2.4), d.bili 1.2 (1.6), AST/ALT 41/83 (38/94), Alk phos 58 (59) - Lactic acid (09/07): 1.9 (5.4 at OSH) - CT A/P at OSH with hepatosplenomegaly, distended gallbladder, thickening of the adrenal glands, bilateral perinephric stranding, distended stomach with air- fluid level. - x0 BM/24hrs, continue bowel reg w/ movantik. Renal: CLINT, hypernatremia, hyperkalemia (improved) - BUN/Cr 65/1.4 (55/1.1) - Na 142,FWF @250 Q4h, decreased overnight - K 4.9 (5.4) - remainder of lytes stable - UOP x 2 unmeasured occurrences, I's/O inaccurate - Check p.m. sodium Early: no Intake & Output Intake/Output Summary (Last 24 hours) at 09/17/2024 0642 Last data filed at 09/17/2024 0631 Gross per 24 hour Intake 4218.01 ml Output 1475 ml Net 2743.01 ml Endo: No active issues - BG 130-170s - A1c 5.8 - TSH 0.80 - check FS q4h while on TF - Continue SUZE - hypoglycemia protocol Heme/Onc: Acute normocytic anemia, Thrombocytopenia with c/f secondary ITP (improving) - H/H 7.3/22.6 (8.1/24.4) - Plt 221 (238) - Coags (09/08): INR 1.3, aPTT 27, fibrinogen 579, thrombin time 12.2 - Heme Onc following - 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 Findings are not consistent with the presence of deep vein thrombosis bilaterally. Lower Extremity Doppler 09/08/24: Bilaterally, the duplex ultrasound of the lower extremities demonstrates normal Doppler flow with no thrombus seen in patterson scale. Findings are not consistent with the presence of deep vein thrombosisbilaterally. ID: HEENT infection, likely meningitis/encephalitis - Tmax 102.4, WBC 11.9 (11) - UA at OSH positive for nitrites and trace LE no bacteria - fluvid negative - legionella prelim negative - PJP negative - right ear culture (09/07) - yeast and bordetella trematum - blood cx OSH - GNR - blood cultures (09/07): negative - repeat blood cx 09/16: in process - bronch cultures (09/08): no growth to date - MRSA swab (09/07) negative - urine strep presumptive positive - LP not needed per Dr. Michaud, already has been on coverage for meningitis/encephalitis - Continue meropenem (09/08-) - Dr. Michaud following Vascular access: PIV IV access Mobility: Progressive Mobility Level Achieved: Level 0,PT/OT: Yes GI PPx: none DVT PPx: PAS and Heparin drip VTE Risk Assessment VTE Time Out IMPROVE SCORE: 2 (09/07/2024 5:40 PM) Interpretation - High Risk Chemical Prophylaxis heparin (porcine) IV infusion 25,000 units in 500 mL 0.45% NaCl (premix) Intravenous Continuous heparin (porcine) 1000 unit/mL injection 2,800 Units Intravenous Every 6 hours PRN Heparin Sodium (Porcine) 5000 Units Last dose 09/16/2024 2:04 PM Mechanical Prophylaxis SCDs are ordered - Bilateral (Knee High) Drips: heparin (porcine) IV infusion - low dose protocol, 10.8 Units/kg/hr, Last Rate: 7.8 Units/kg/hr (09/17/24 0600) HYDROmorphone, 0.5 mg/hr, Last Rate: 0.5 mg/hr (09/17/24 0600) ketamine, 10 mcg/kg/min, Last Rate: 10 mcg/kg/min (09/17/24 0600) Lines: Peripheral IV - Single Lumen (Adult) 09/07/24 2200 median vein (underside of arm), right 20 gauge (Active) Number of days: 10 Peripheral IV - Single Lumen (Adult) 09/12/24 0338 cephalic vein (lateral side of arm), left 22 gauge;1 in length;3/4 in length (Active) Number of days: 5 Peripheral IV - Single Lumen (Adult) 09/16/24 2032 cephalic vein (lateral side of arm), right 22 gauge;1 in length;3/4 in length (Active) Number of days: 1 Enteric Access and Early: Naso/Orogastric Tube (Adult) 09/08/24 1100 Hancock sump 18 Fr mouth, center (Active) Number of days: 9 Restraints: soft wrists bilaterally Interference with medical treatment Code: FULL Dispo: ICU, per Dr. Dickens Objective Last Vitals: Pulse:83, Resp:18, BP:BP Min: 111/56 Max: 128/61 MAP: 86 mm Hg SpO2:98 % CVP: Temp Last 24 hrs: Temp Min: 101.1 ??F (38.4 ??C) Max: 102.4 ??F (39.1 ??C) Physical Exam: General appearance: adult male, laying in bed, sedated and intubated HEENT: significant subconjunctival hemorrhage noted on left eye, no light perception or accomodation; no right eye involvement; R pupil reactive to light but sluggish Lungs: diminished lung sounds throughout Heart: RRR, S1S2, murmur present Abdomen: + bowel sounds, abdomen soft, non-distended Extremities: no peripheral edema, pulses 2+ at radius and DP Neurologic: sedated, weakly opens eyes to voice, weakly following commands in all extremities Labs: Recent Labs 09/15/24 0026 09/15/24232709/16/24 1707 09/16/24 1843 09/17/24 0030 WBC 10.0 12.8* Test not performed due to insufficient quantity of specimen. 11.0 11.9* HGB 7.9* 7.9* Test not performed due to insufficient quantity of specimen. 8.1* 7.3* HCT 23.8* 24.1* Test not performed due to insufficient quantity of specimen. 24.4* 22.6* PLT 131* 190 Test not performed due to insufficient quantity of specimen. 238 221 MCV 94 96 Test not performed due to insufficient quantity of specimen. 96 97 MCH 31.2* 31.5* Test not performed due to insufficient quantity of specimen. 32.0* 31.2* MCHC 33.2 32.8 Test not performed due to insufficient quantity of specimen. 33.2 32.3 RDW 12.2 12.3 Test not performed due to insufficient quantity of specimen. 13.2 13.4 Recent Labs 09/14/24 1631 09/15/24 0026 09/15/24 1242 09/15/24 2328 09/16/24 1616 09/17/24 0030 BUN 44* 50* 54* 55* -- 65* CREAT 0.9 0.8 1.1 1.1 -- 1.4* NA 146* 144 145 146* 147* 142 K 5.2 5.3 5.4* 4.9 -- 4.6 CO2 31 32 31 28 -- 25 CL 109* 108* 109* 111* -- 110* MG 2.4 2.5 2.6 2.5 -- 2.7 PHOS 4.0 4.2 4.5 3.6 -- 4.1 AST -- 41 -- -- -- -- ALT -- 83* -- -- -- -- PROT -- 7.1 -- -- -- -- Recent Labs 09/16/24 1707 PTT 24* INR 1.2 Medications Medication/MAR Report: Medications Scheduled Medication Ordered Dose/Rate, Route, Frequency Last Action chlorhexidine (PERIDEX) 0.12 % oral solution 15 mL 15 mL, MT, BID Given, 15 mL at 09/16 2004 chlorhexidine gluconate 2 % wipes - urethral catheter CHG application No Dose/Rate, TOP, Daily Given, 1 each at 09/17 847 folic acid (FOLVITE) tablet 1 mg 1 mg, FT, Daily Given, 1 mg at 09/16 824 insulin lispro (HumaLOG/ADMELOG) 100 units/mL injection 3-11 Units 3-11 Units, SC, Q4H ZO Given, 4 Units at 09/17 0415 lactulose (ENULOSE) 10 gm/15 mL solution 20 g 20 g, PER OG TUBE, BID Given, 20 g at 09/15 0847 meropenem (MERREM) 1 g in sodium chloride-MBP (NS) 100 mL IVPB-MBP 1 g, IV, Q8H New Bag, 1 g at 09/17 0026 methylPREDNISolone sodium succinate (SOLU-Medrol) injection 40 mg 40 mg, IV, Q8H ZO Given, 40 mg at 09/17 0628 metoPROLOL TARTRATE (LOPRESSOR) tablet 50 mg 50 mg, FT, Q12H ZO Given, 50 mg at 09/16 2001 multivitamin with minerals (CEROVITE) liquid 15 mL 15 mL, FT, Daily Given, 15 mL at 09/17 823 naloxegol (MOVANTIK) tablet 25 mg 25 mg, FT, Daily before breakfast Given, 25 mg at 09/17 823 nicotine (NICODERM CQ) 21 MG/24HR patch 1 patch 1 patch, TD, Daily Patch Applied, 1 patch at 09/16 0851 nystatin (MYCOSTATIN) [id number] UNIT/ML suspension 500,000 Units 500,000 Units, PO, 4x Daily Given, 500,000 Units at 09/16 2200 polyethylene glycol (miraLAx) packet 17 g 17 g, FT, BID Given, 17 g at 09/16 2001 protein supplement feeding tube flush (PROSOURCE TF) 3 oz 3 oz, FT, BID Given, 3 oz at 09/16 2004 [Provider Held] QUEtiapine (SEROquel) tablet 100 mg On hold since Wed2024 at 1227 until manually unheld; held by Collin Bautista Reason: Other - Comment requiredHold Comment: Heavily sedated On hold since Wed2024 at 1227 until manually unheld (Needs Review) Hold reason: Other - Comment required, Hold comment: Heavily sedated 100 mg, FT, Nightly Given, 100 mg at 09/14 2017 [Provider Held] QUEtiapine (SEROquel) tablet 50 mg On hold since Wed2024 at 1227 until manually unheld; held by Collin Bautista Reason: Other - Comment required On hold since Wed2024 at 1227 until manually unheld (Needs Review) Hold reason: Other - Comment required 50 mg, FT, BID Given, 50 mg at 09/15 08 senna-docusate (SENNA-S) 8.6-50 MG tablet 2 tablet 2 tablet, FT, BID Given, 2 tablet at 09/16 2001 thiamine mononitrate (VITAMIN B-1) tablet 100 mg 100 mg, FT, Daily Given, 100 mg at 09/16 0824 Continuous Medication Ordered Dose/Rate, Route, Frequency Last Action heparin (porcine) IV infusion 25,000 units in 500 mL 0.45% NaCl (premix) 10.8 Units/kg/hr, IV, Continuous Rate/Dose Verify, 7.8 Units/kg/hr at 09/17 599 HYDROmorphone (DILAUDID) IV infusion 50 mg in 50 mL NS (1 mg/mL) (premix) 0.5 mg/hr, IV, Continuous Rate/Dose Verify, 0.5 mg/hr at 09/17 599 ketamine 1000 mg in 100 mL NS infusion (10 mg/mL) (premix) 10 mcg/kg/min, IV, Continuous Rate/Dose Verify, 10 mcg/kg/min at 09/17 0600 PRN Medication Ordered Dose/Rate, Route, Frequency Last Action acetaminophen (TYLENOL) tablet 975 mg 975 mg, PO, Q6H PRN Given, 975 mg at 09/17 0628 bisacodyl (DULCOLAX) suppository 10 mg 10 mg, RE, Daily PRN Ordered dextrose 50 % solution 12.5 g (Or Linked Group #1) 12.5 g, IV, Q15 Min PRN Ordered dextrose 50 % solution 25 g (Or Linked Group #1) 25 g, IV, Q15 Min PRN Ordered glucagon (GLUCAGEN) injection 1 mg (Or Linked Group #1) 1 mg, IM, Daily PRN Ordered glucose (GLUTOSE 15) 40 % oral gel 37.5 g (Or Linked Group #1) 1 Tube, PO, Q15 Min PRN Ordered glucose (GLUTOSE 15) 40 % oral gel 75 g (Or Linked Group #1) 2 Tube, PO, Q15 Min PRN Ordered haloperidol lactate (HALDOL) 5 mg/mL injection 5 mg 5 mg, IV, Q2H PRN Given, 5 mg at 09/12 2256 heparin (porcine) 1000 unit/mL injection 2,800 Units 30 Units/kg, IV, Q6H PRN Ordered HYDROmorphone (DILAUDID) injection 0.5 mg 0.5 mg, IV, Q2H PRN Ordered naloxone (NARCAN) 0.4 mg/mL injection 0.4 mg 0.4 mg, IV, Q5 Min PRN Ordered Sign: Daiana Guzman PA-C 09/17/2024 6:42 AM * Mo Dickens MD - 09/17/2024 6:16 AM EDT Images from the original note were not included. Division of Pulmonary, Critical Care, and Sleep Medicine [address] [place] [address], [address] [address] Critical Care Note Assessment 64 y.o. male with hx of Etoh use admitted on 09/07/2024 for eye swelling (admitted to OSH on 09/06/24). Course c/b thrombocytopenia, sepsis, respiratory failure - tx to on 09/07/24. Intubated on 09/08/24. Active Problems: Acute metabolic encephalopathy Cavernous sinus thrombosis Acute hypoxic respiratory failure Diffuse alveolar hemorrhage (unclear etiology) R otitis media Pulmonary edema Volume overload Hypoalbuminemia Thrombocytopenia Sepsis SIRS ARDS Lactic acidosis SVT Shock Hypotension Leukocytosis CLINT Comorbid Conditions: Active Nicotine Dependence Total LOS: 10 days Overnight Waking up and following commands this AM Plan by System I performed rounds on the medical unit with the entire critical care team and we discussed the events below while developing the daily treatment plan: Neuro: CAM-ICU Delirium Present: Positive Dwyer Agitation Sedation Scale (RASS) / Modified RASS: -3-->Difficult to wake/moderate sedation Concern for seizure activity Acute metabolic encephalopathy - improving Concern for meningitis Cavernous sinus thrombosis Concern for septic thrombophlebitis Depression Alcohol use in remission for 15 years - Tylenol - Haldol - Hold Seroquel - Hold paroxetine and risperidone - Neurology consult - stop ketamine and try to wake up more - EEG - MRV - started on heparin based on results - wean Sedation - no role for LP after discssion with ID - abx as below Resp: Ventilator Start 09/08/24 0935 (Active) Number of days: 9 Ventilation Mode (Drager V500): PC-AC Rate Set (breaths/min) (Drager V500): 12 Pressure Set (cmH2O): 18 Oxygen Concentration (%) (Drager V500): 40 PEEP (cmH2O) (Drager V500): 6 Unable to protect airway Acute hypoxemic respiratory failure ARDS Diffuse alveolar hemorrhage likely due to ARDS and fluid overload and thrombocytopenia - Vasculitis labs pending - Vent Management: - Daily SBT-SAT if meets criteria from protocol - lung protective ventilation TV 6-8cc/kg ideal body wt - maintain plt pressure <30 and driving pressure <15 if able, but also assure adequate ventilation - mental status is barrier to extubation but it is improving - will need 0/0 before extubation as well CV: Nonsustained VT Hypertension Severe aortic stenosis - make slightly negative today with lasix - Continue pressors - Cardiology consult signed off for the severe aortic stenosis >Echo: TTE 09/11/2024 Left ventricular systolic function is hyperdynamic. The quantitative EF by 2D Stark biplane is 80%. Right ventricular systolic function is normal. There is likely severe aortic stenosis based on gradients and velocities. The continuity derived aortic valve area is less reliable in the setting of poor spectral signal. The peak velocity is 4.3 m/s and mean gradient is 45.7 mmHg. There is progressive calcific mitral stenosis. There is a mean transmitral gradient of 5 mmHg at a heart rate of 81 bpm. There is no previous study for comparison in our system. GI: Transaminitis-improving - c/w elevated bowel regimen - had BM yesterday - Lactulose - Enema >Nutrition: Diet/Nutrition Received: NPO, tube feeding Diet, Tube Feeding, No Tray Continuous; OG Tube; Osmolite 1.5; 20 mL; 65 mL/hr; x23 hrs (hold 1 hour before movantik administration); Water; Every 4 hours; 250; NPO Renal: CLINT Hyponatremia Hyperkalemia - Remove Early and do void trial >Intake & Output Intake/Output Summary (Last 24 hours) at 09/17/2024 0616 Last data filed at 09/17/2024 0400 Gross per 24 hour Intake 3986.43 ml Output 1475 ml Net 2511.43 ml I/O last 3 completed shifts: In: 5577.2 [P.O.:90; I.V.:273.2; NG/GT:4814; IV Piggyback:400] Out: 3280 [Urine:3280] Endo: MARY Heme/Onc: Acute normocytic anemia There was cytopenia - Heme consulted - Status post IVIG ID: HEENT infection Meningitis versus encephalitis - ID following - Continue with antibiotics as below - Neurology consult - LP not needed per Dr. Michaud as the patient has adequate meningitis encephalitis coverage >Antibiotics: Anti-infectives (From admission, onward) Start Dose/Rate Route Frequency Ordered Stop 09/08/24 1700 meropenem (MERREM) 1 g in sodium chloride-MBP (NS) 100 mL IVPB-MBP 1 g 33.3 mL/hr over 3 Hours Intravenous Every 8 hours 09/08/24 1640 >Recent Cultures: Culture Date Value Ref Range Status 09/08/2024 Negative after 2 days Final 09/08/2024 Preliminary No fungi isolated. Culture will be held for two weeks. 09/08/2024 Negative after 5 days Preliminary ICU Checklist Drips: heparin (porcine) IV infusion - low dose protocol, 10.8 Units/kg/hr, Last Rate: 7.8 Units/kg/hr (09/17/24 0400) HYDROmorphone, 0.5 mg/hr, Last Rate: 0.5 mg/hr (09/17/24 0400) ketamine, 10 mcg/kg/min, Last Rate: 10 mcg/kg/min (09/17/24 0400) Lines: Peripheral IV - Single Lumen (Adult) 09/07/24 2200 median vein (underside of arm), right 20 gauge (Active) Number of days: 10 Peripheral IV - Single Lumen (Adult) 09/12/24 0338 cephalic vein (lateral side of arm), left 22 gauge;1 in length;3/4 in length (Active) Number of days: 5 Peripheral IV - Single Lumen (Adult) 09/16/242031 cephalic vein (lateral side of arm), right 22 gauge;1 in length;3/4 in length (Active) Number of days: 1 Restraints: Restraint Type: Unlocked Unlocked Bilateral Wrist (NV): discontinued Unlocked Bilateral Ankle (NV): continued Behaviors Observed: agitated upon awakening Mobility: Progressive Mobility Level Achieved: Level 0 Early: GI Prophylaxis (if needed): None VTE Time Out IMPROVE SCORE: 2 (09/07/2024 5:40 PM) Interpretation - High Risk Chemical Prophylaxis heparin (porcine) IV infusion 25,000 units in 500 mL 0.45% NaCl (premix) Intravenous Continuous heparin (porcine) 1000 unit/mL injection 2,800 Units Intravenous Every 6 hours PRN Chemical VTE prophylaxis NOT ordered. Click here to order if appropriate Chemical Prophylaxis Contraindication: None - I will place appropriate order Heparin Sodium (Porcine) 5000 Units Last dose 09/16/2024 2:04 PM Mechanical Prophylaxis SCDs are ordered - Bilateral (Knee High) Code Status and Disposition CODE STATUS: Full DISPOSITION: ICU I spent 31 minutes of Critical Care time in multiple visits throughout the day for collaboration/coordination of care exclusive of time spent performing separately billable medical procedures. I affirm that this patient is critically ill and at high risk for sudden, fatal deterioration due to one or more of the above active issues. I managed/supervised life- or organ-supporting interventions that require frequent physician assessment and reassessment. Critical care time was spent, but not limited to, the review of laboratory test results, medications, relevant radiology and discussing this critically ill patient's care with other medical staff in the unit or at the nursing station [facility] floor where the patient is located. My full attention was given to the management of this patient and I was immediately available during this same time. Objective SpO2:97 %,O2 Device: ventilator, , Oxygen Concentration (%): 40 Oxygen Concentration (%) (Drager V500): 40 Temp Last 24 hrs: Temp Min: 101.1 ??F (38.4 ??C) Max: 102.4 ??F (39.1 ??C) WBC Trend White Blood Cell Count Date Value Ref Range Status 09/17/2024 11.9 (H) 4.0 - 11.0 Thou/uL Final 09/16/2024 11.0 4.0 - 11.0 Thou/uL Final 09/16/2024 4.0 - 11.0 Thou/uL Final Test not performed due to insufficient quantity of specimen. 2024 12.8 (H) 4.0 - 11.0 Thou/uL Final Last Vitals: Pulse:85, Resp:(!) 21, BP:BP Min: 111/56 Max: 128/61 MAP: 86 mm Hg Physical Exam: General: Intermittent agitation; ETT in place; L eye extremely swollen PIV x 2 OG tube Early cath HEENT: supple without LAD Lungs: clear to auscultation bilaterally Heart: regular rate and rhythm, S1, S2 normal, no murmur, click, rub or gallop Abdomen: soft, non-tender; bowel sounds normal; no masses, no organomegaly Extremities: atraumatic, no cyanosis or edema Neuro: Moves extremities I reviewed the prescribed Medications and new Laboratory Blood Work I reviewed all new Imaging Studies (actual images) and compared to prior where applicable Sign: Mo Dickens MD 09/17/2024 6:16 AM * Daiana Guzman PA-C - 09/16/2024 6:57 AM EDT Critical Care Progress Note Subjective Overnight events: - FWF increased to 350cc q4h for Na+ 146 Assessment & Plan Assessment: Mariah Masterson is a 63 year old male with PMHx of depression, alcohol abuse, tobacco use who presented to OSH for concern of left eye swelling, tongue swelling, right ear pain, and decreased visual acuity of left eye. He was ultimately transferred to for ENT, ophthalmology, ID, neuro consults. He was admitted for further management of cavernous sinus thrombosis with course complicated by worsening hypoxia with concern for diffuse alveolar hemorrhage in the setting of ARDS. MRI with meningitis/encephalitis. 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) - Mental status: sedated, not following commands, intermittent twitching in all extremities, eyes both closed and minimally withdrawing to noxious stimuli in all 4 extremities - Spot EEG for intermittent twitching suggestive of severe encephalopathy, no seizures however interpretation limited d/t lack of video review - On LTM - MRV wwo pending to evaluate thrombosis in bilateral cavernous sinus and internal jugular veins due to ongoing infection and risk for increased clot burden - Dilaudid gtt 0.5 with 0.5mg and Q2h PRN (x 0 overnight) - Maintain ketamine @10mcg/kg/min, no longer on standing benzos - Continue haldol 5mg q2h PRN (x1 overnight) - Continue tylenol 650mg q6h PRN for fevers (x2 overnight) - Continue with nicotine patch - active smoker - Hold seroquel 50mg BID, 100mg nightly - Holding home paroxetine 40mg daily and risperidone 0.5 BID - Neuro re-engaged - they believe MRI shows ventriculitis with pus in the ventricles likely representing meningitis. Discussed with ID and no LP needed as already covered on meropenem - SW consulted for help with HCR (daughter next of kin but estranged 30 years; mom and sister in chart) - Will attempt to set up family meeting next week after MRV, prognosis is guarded, palliative consult on Wednesday MRI Brain (09/12): 1. Similar pattern of inflammatory change (better described on CTA head and neck performed same day) about the left orbit with thrombus within the enlarged left superior ophthalmic vein, nonocclusive thrombus in the cavernous sinus bilaterally and venous structures about the middle cranial fossa as noted above (not conspicuous on CTA head and neck), with nonocclusive thrombus bilateral internal jugular veins, etiology is uncertain. 2. Hyperintense signal along the sulci of the frontoparietal and occipital lobes without enhancement. 3. Nonenhancing debris demonstrating diffusion restriction and slight FLAIR hyperintensity within the occipital horns with trace hemosiderin. 4. Right-sided otomastoiditis. 5. Right temporal scalp and temporalis contusion. CTA Head/neck (09/12): 1. Similar appearance of soft tissue changes about the left orbit without definitive filling defect within the left cavernous sinus. 2. No acute intracranial process. 3.Intact anterior and posterior circulations without dissection, major branch occlusion, aneurysm, or vascular malformation. 4. No dissection or high grade stenosis of the carotid or vertebral systems. 5. Scattered groundglass opacities and pneumatoceles imaged lungs with subsegmental foci of consolidation, correlate clinically, infectious versus inflammatory. ENT: Right sided otomastoiditis, left eye swelling (improving), - Ear culture (09/07): + rubi parapsilosis, bordetella species - S/p ciprodex otic drops, hydrocortisone-aceitic acid otic drops - ENT following - reviewed most recent imaging but no clinical evidence of mastoiditis so no changes to plan - Ophthalmology consulted, given no light perception in left eye, poor visual prognosis; no acute interventions recommended to help with left eye vision, no evidence of R eye involvement. Left visionloss maybe likely to thrombosis disrupting blood-flow or involvement of the orbital apex or posterior ischemic optic neuropathy given unremarkable fundus exam, normal IOP (22) and non- edematous opticnerve Behavioral/Sedation scales CAM-ICU Delirium Present: Positive Dwyer Agitation Sedation Scale (RASS) / Modified RASS: -5-->unarousable Resp: Acute hypoxic respiratory failure 2/2 ARDS, concern for diffuse alveolar hemorrhage - SpO2 96% on below vent settings - Bronchoscopy on 09/08; findings consistent with DAH; cultures negative to date - Intubated on 09/08 - VBG 09/15: 7.43/50/34 after being on SBT overnight - Has been tolerating PS/CPAP 6/5 40%, mental status remains barrier to extubation - Will continue with 2hrs SBT daily until closer to extubation, rest on vent otherwise - Continue solu-medrol 40mg q8h; s/p 3 days of pulse dose steroids (1g/day) Vasculitis labs: - Glomerular basement membrane Ab negative - Lupus anticoagulant not detected -CCP Ab negative, dsDNA negative, complement C3 85, C4 10 (L) - myeloperoxidase Ab, proteinase-3 Ab negative - RF, ANCA pending Current vent settings: Ventilation Mode (Drager V500): PC-AC (09/16 309) Rate Set (breaths/min) (Drager V500): 12 (09/16 309) Pressure Set (cmH2O): 18 (09/16 309) Oxygen Concentration (%) (Drager V500): 40 (09/16 309) PEEP (cmH2O) (Drager V500): 6 (09/16 309) CT Thorax (09/08): 1. Diffuse interlobular septal thickening, with scattered [...] 3.1 cm, may represent pericardial fluid/pericardial cyst. CXR 09/08: Mild interval improvement in bilateral airspace opacities. CV: non- sustained VT, hypertension (improved), severe aortic stenosis - SBP 110s - 140s, HR 80-100s - HS trop (09/07): 22 - ProBNP: 486 (2219) - EKG (09/15): Sinus tachycardia with PVCs, RBBB, Qtc 494 - Holding spot diuresis, can resume if respiratory status worsens - Continue lopressor 50mg Q12h - [facility] cardiology consulted for new severe aortic stenosis - signed off until more stable ECHO 09/11/24: Left ventricular systolic function is hyperdynamic. The quantitative EF by 2D Stark biplane is 80%. Right ventricular systolic function is normal. There is likely severe aortic stenosis based on gradients and velocities. The continuity derived aortic valve area is less reliable in the setting of poor spectral signal. The peak velocity is 4.3 m/s and mean gradient is 45.7 mmHg. There is progressive calcific mitral stenosis. There is a mean transmitral gradient of 5 mmHg at a heart rate of 81 bpm. There is no previous study for comparison in our system. GI: Transaminitis (improving), lactic acidosis (resolved) - Diet: Osmolite 1.5 with FWF 350cc Q4h - LFTs: t.bili 1.8 (2.4), d.bili 1.2 (1.6), AST/ALT 41/83 (38/94), Alk phos 58 (59) - Lactic acid (09/07): 1.9 (5.4 at OSH) - CT A/P at OSH with hepatosplenomegaly, distended gallbladder, thickening of the adrenal glands, bilateral perinephric stranding, distended stomach with air- fluid level. - x1 BM/24hrs, continue bowel reg w/ movantik. Renal: CLINT (resolved), hypernatremia, hyperkalemia (improved) - BUN/Cr 55/1.1 (54/1.1) - Na 146,FWF @350 Q4h, increased overnight - K 4.9 (5.4) - remainder of lytes stable - UOP 2.3L/24hrs; +1.4L/24hrs, +8.3L LOS Early: yes - remove Early indication: Urinary Retention Intake & Output Intake/Output Summary (Last 24 hours) at 09/16/2024 0657 Last data filed at 09/16/2024 0600 Gross per 24 hour Intake 3761.01 ml Output 2305 ml Net 1456.01 ml Endo: No active issues - BG 140-170s - A1c 5.8 - TSH 0.80 - check FS q4h while on TF - Continue SUZE - hypoglycemia protocol Heme/Onc: Acute normocytic anemia, Thrombocytopenia with c/f secondary ITP (improving) - H/H 7.9/24.1 (7.9/23.8) - Plt 190 (131) - Coags (09/08): INR 1.3, aPTT 27, fibrinogen 579, thrombin time 12.2 - Heme Onc following - 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 Findings are not consistent with the presence of deep vein thrombosis bilaterally. Lower Extremity Doppler 09/08/24: Bilaterally, the duplex ultrasound of the lower extremities demonstrates normal Doppler flow with no thrombus seen in patterson scale. Findings are not consistent with the presence of deep vein thrombosisbilaterally. ID: HEENT infection, likely meningitis/encephalitis - Tmax 101.7, WBC 12.8 (10) - UA at OSH positive for nitrites and trace LE no bacteria - fluvid negative - legionella prelim negative - PJP negative - right ear culture (09/07) - yeast and bordetella trematum - blood cx OSH - GNR - blood cultures (09/07) no growth to date - bronch cultures (09/08) no growth to date - MRSA swab (09/07) negative - urine strep presumptive positive - LP not needed per Dr. Michaud, already has been on coverage for meningitis/encephalitis - Continue meropenem (09/08-) - Dr. Michaud following Vascular access: PIV IV access Mobility: Progressive Mobility Level Achieved: Level 0,PT/OT: Yes GI PPx: none DVT PPx: PAS and SC Heparin VTE Risk Assessment VTE Time Out IMPROVE SCORE: 2 (09/07/2024 5:40 PM) Interpretation - High Risk Chemical Prophylaxis heparin (porcine) 5000 unit/mL injection 5,000 Units Subcutaneous Every 8 hours scheduled Heparin Sodium (Porcine) 5000 Units Last dose 09/16/2024 6:05 AM Mechanical Prophylaxis SCDs are ordered - Bilateral (Knee High) Mechanical Prophylaxis Contraindication: None - I will order SCDs Drips: HYDROmorphone, 0.5 mg/hr, Last Rate: 0.5 mg/hr (09/16/24 06) ketamine, 10 mcg/kg/min, Last Rate: 10 mcg/kg/min (09/16/24 06) Lines: Peripheral IV - Single Lumen (Adult) 09/07/24 2200 median vein (underside of arm), right 20 gauge (Active) Number of days: 9 Peripheral IV - Single Lumen (Adult) 09/12/24 0338 cephalic vein (lateral side of arm), left 22 gauge;1 in length;3/4 in length (Active) Number of days: 4 Enteric Access and Early: Naso/Orogastric Tube (Adult) 09/08/24 1100 Hancock sump 18 Fr mouth, center (Active) Number of days: 8 Urethral Catheter (Adult) 09/13/24 0038 10 mL balloon inflation volume (Active) Number of days: 3 Restraints: soft wrists bilaterally Interference with medical treatment Code: FULL Dispo: ICU, per Dr. Dickens Objective Last Vitals: Pulse:93, Resp:19, BP:BP Min: 113/55 Max: 145/63 MAP: 86 mm Hg SpO2:96 % CVP: Temp Last 24 hrs: Temp Min: 99.7 ??F (37.6 ??C) Max: 102.4 ??F (39.1 ??C) Physical Exam: General appearance: adult male, laying in bed, sedated and not responsive HEENT: significant subconjunctival hemorrhage noted on left eye, no light perception or accomodation; no right eye involvement; R pupil reactive to light but sluggish Lungs: diminished lung sounds throughout Heart: RRR, S1S2, murmur present Abdomen: + bowel sounds, abdomen soft, non-distended Extremities: no peripheral edema, pulses 2+ at radius and DP Neurologic: sedated, not following commands, intermittent twitching in all extremities, eyes both closed and minimally withdrawing to noxious stimuli in all 4 extremities Labs: Recent Labs 09/14/24 0011 09/15/24 0026 09/15/24 2328 WBC 10.2 10.0 12.8* HGB 8.4* 7.9* 7.9* HCT 25.9* 23.8* 24.1* PLT 97* 131* 190 MCV 96 94 96 MCH 31.2* 31.2* 31.5* MCHC 32.4 33.2 32.8 RDW 12.6 12.2 12.3 Recent Labs 09/13/24 1420 09/14/24 0011 09/14/24 1631 09/15/24 0026 09/15/24 1242 09/15/24 2328 BUN 35* 39* 44* 50* 54* 55* CREAT 0.8 0.8 0.9 0.8 1.1 1.1 NA 144 146* 146* 144 145 146* K 4.7 5.6* 5.2 5.3 5.4* 4.9 CO2 32 32 31 32 31 28 CL 107 110* 109* 108* 109* 111* MG 2.5 2.4 2.4 2.5 2.6 2.5 PHOS 3.8 3.3 4.0 4.2 4.5 3.6 AST -- 38 -- 41 -- -- ALT -- 94* -- 83* -- -- PROT -- 7.2 -- 7.1 -- -- No results for input(s): PT , PTT , INR in the last 72 hours. Medications Medication/MAR Report: Medications Scheduled Medication Ordered Dose/Rate, Route, Frequency Last Action chlorhexidine (PERIDEX) 0.12 % oral solution 15 mL 15 mL, MT, BID Given, 15 mL at 09/15 2044 chlorhexidine gluconate 2 % wipes - urethral catheter CHG application No Dose/Rate, TOP, Daily Given, 1 each at 09/15 0907 folic acid (FOLVITE) tablet 1 mg 1 mg, FT, Daily Given, 1 mg at 09/15 1246 heparin (porcine) 5000 unit/mL injection 5,000 Units 5,000 Units, SC, Q8H ZO Given, 5,000 Units at 09/16 0605 insulin lispro (HumaLOG/ADMELOG) 100 units/mL injection 3-11 Units 3-11 Units, SC, Q4H ZO Given, 5 Units at 09/16 0342 lactulose (ENULOSE) 10 gm/15 mL solution 20 g 20 g, PER OG TUBE, BID Given, 20 g at 09/15 0847 meropenem (MERREM) 1 g in sodium chloride-MBP (NS) 100 mL IVPB-MBP 1 g, IV, Q8H New Bag, 1 g at 09/16 0000 methylPREDNISolone sodium succinate (SOLU-Medrol) injection 40 mg 40 mg, IV, Q8H ZO Given, 40 mg at 09/16 0606 metoPROLOL TARTRATE (LOPRESSOR) tablet 50 mg 50 mg, FT, Q12H ZO Given, 50 mg at 09/15 2045 multivitamin with minerals (CEROVITE) liquid 15 mL 15 mL, FT, Daily Given, 15 mL at 09/15 1246 naloxegol (MOVANTIK) tablet 25 mg 25 mg, FT, Daily before breakfast Given, 25 mg at 09/15 844 nicotine (NICODERM CQ) 21 MG/24HR patch 1 patch 1 patch, TD, Daily Patch Applied, 1 patch at 09/15 09 nystatin (MYCOSTATIN) 521820 UNIT/ML suspension 500,000 Units 500,000 Units, PO, 4x Daily Given, 500,000 Units at 09/15 2224 polyethylene glycol (miraLAx) packet 17 g 17 g, FT, BID Given, 17 g at 09/15 844 protein supplement feeding tube flush (PROSOURCE TF) 3 oz 3 oz, FT, BID Given, 3 oz at 09/15 2046 [Provider Held] QUEtiapine (SEROquel) tablet 100 mg On hold since yesterday at 1227 until manually unheld; held by Collin Bautista Reason: Other - Comment requiredHold Comment: Heavily sedated On hold since yesterday at 1227 until manually unheld Hold reason: Other - Comment required, Hold comment: Heavily sedated 100 mg, FT, Nightly Given, 100 mg at 09/14 2017 [Provider Held] QUEtiapine (SEROquel) tablet 50 mg On hold since yesterday at 1227 until manually unheld; held by Collin Bautista Reason: Other - Comment required On hold since yesterday at 1227 until manually unheld Hold reason: Other - Comment required 50 mg, FT, BID Given, 50 mg at 09/15 845 senna-docusate (SENNA-S) 8.6-50 MG tablet 2 tablet 2 tablet, FT, BID Given, 2 tablet at 09/15 844 thiamine mononitrate (VITAMIN B-1) tablet 100 mg 100 mg, FT, Daily Given, 100 mg at 09/15 1245 Continuous Medication Ordered Dose/Rate, Route, Frequency Last Action HYDROmorphone (DILAUDID) IV infusion 50 mg in 50 mL NS (1 mg/mL) (premix) 0.5 mg/hr, IV, Continuous Rate/Dose Verify, 0.5 mg/hr at 09/16 599 ketamine 1000 mg in 100 mL NS infusion (10 mg/mL) (premix) 10 mcg/kg/min, IV, Continuous Rate/Dose Verify, 10 mcg/kg/min at 09/16 599 PRN Medication Ordered Dose/Rate, Route, Frequency Last Action acetaminophen (TYLENOL) 160 mg/5 mL solution 650 mg 650 mg, FT, Q6H PRN Given, 650 mg at 09/16 605 bisacodyl (DULCOLAX) suppository 10 mg 10 mg, RE, Daily PRN Ordered dextrose 50 % solution 12.5 g (Or Linked Group #1) 12.5 g, IV, Q15 Min PRN Ordered dextrose 50 % solution 25 g (Or Linked Group #1) 25 g, IV, Q15 Min PRN Ordered glucagon (GLUCAGEN) injection 1 mg (Or Linked Group #1) 1 mg, IM, Daily PRN Ordered glucose (GLUTOSE 15) 40 % oral gel 37.5 g (Or Linked Group #1) 1 Tube, PO, Q15 Min PRN Ordered glucose (GLUTOSE 15) 40 % oral gel 75 g (Or Linked Group #1) 2 Tube, PO, Q15 Min PRN Ordered haloperidol lactate (HALDOL) 5 mg/mL injection 5 mg 5 mg, IV, Q2H PRN Given, 5 mg at 09/12 2256 HYDROmorphone (DILAUDID) injection 0.5 mg 0.5 mg, IV, Q2H PRN Ordered naloxone (NARCAN) 0.4 mg/mL injection 0.4 mg 0.4 mg, IV, Q5 Min PRN Ordered Sign: Daiana Guzman PA-C 09/16/2024 6:57 AM * Mo Dickens MD - 09/16/2024 6:00 AM EDT Images from the original note were not included. Division of Pulmonary, Critical Care, and Sleep Medicine [address] [facility], [address], [place] [address] Critical Care Note Assessment 64 y.o. male with hx of Etoh use admitted on 09/07/2024 for eye swelling (admitted to OSH on 09/06/24). Course c/b thrombocytopenia, sepsis, respiratory failure - tx to on 09/07/24. Intubated on 09/08/24. Active Problems: Acute metabolic encephalopathy Cavernous sinus thrombosis Acute hypoxic respiratory failure Diffuse alveolar hemorrhage (unclear etiology) R otitis media Pulmonary edema Volume overload Hypoalbuminemia Thrombocytopenia Sepsis SIRS ARDS Lactic acidosis SVT Shock Hypotension Leukocytosis CLINT Comorbid Conditions: Active Nicotine Dependence Total LOS: 9 days Overnight Free water increased No acute events overnight Plan by System I performed rounds on the medical unit with the entire critical care team and we discussed the events below while developing the daily treatment plan: Neuro: CAM-ICU Delirium Present: Positive Dwyer Agitation Sedation Scale (RASS) / Modified RASS: -5-->unarousable Concern for seizure activity Acute metabolic encephalopathy Concern for meningitis Cavernous sinus thrombosis Concern for septic thrombophlebitis Depression Alcohol use in remission for 15 years - Tylenol - Haldol - Hold Seroquel - Hold paroxetine and risperidone - Neurology consult - Continue ketamine - EEG - MRV - wean Sedation - no role for LP after discssion with ID - abx as below - discuss steroids with neuro and if they want to keep or wean Resp: Ventilator Start 09/08/24 0935 (Active) Number of days: 8 Ventilation Mode (Drager V500): PC-AC Rate Set (breaths/min) (Drager V500): 12 Pressure Set (cmH2O): 18 Oxygen Concentration (%) (Drager V500): 40 PEEP (cmH2O) (Drager V500): 6 Unable to protect airway Acute hypoxemic respiratory failure ARDS Diffuse alveolar hemorrhage likely due to ARDS and fluid overload and thrombocytopenia - Vasculitis labs pending - Vent Management: - Daily SBT-SAT if meets criteria from protocol - lung protective ventilation TV 6-8cc/kg ideal body wt - maintain plt pressure <30 and driving pressure <15 if able, but also assure adequate ventilation - mental status is barrier to extubation - steroids more for meningitis and will discuss with neuro before weaning, but can wean from a pulmperspective - gas CV: Nonsustained VT Hypertension Severe aortic stenosis - Holding diuresis today - Continue pressors - Cardiology consult signed off for the severe aortic stenosis >Echo: TTE 09/11/2024 Left ventricular systolic function is hyperdynamic. The quantitative EF by 2D Stark biplane is 80%. Right ventricular systolic function is normal. There is likely severe aortic stenosis based on gradients and velocities. The continuity derived aortic valve area is less reliable in the setting of poor spectral signal. The peak velocity is 4.3 m/s and mean gradient is 45.7 mmHg. There is progressive calcific mitral stenosis. There is a mean transmitral gradient of 5 mmHg at a heart rate of 81 bpm. There is no previous study for comparison in our system. GI: Transaminitis-improving - c/w elevated bowel regimen - had BM yesterday - Lactulose - Enema >Nutrition: Diet/Nutrition Received: NPO, tube feeding Diet, Tube Feeding, No Tray Continuous; OG Tube; Osmolite 1.5; 20 mL; 65 mL/hr; x23 hrs (hold 1 hour before movantik administration); Water; Every 4 hours; 350; NPO Renal: CLINT Hyponatremia Hyperkalemia - Remove Early and do void trial >Intake & Output Intake/Output Summary (Last 24 hours) at 09/16/2024 0600 Last data filed at 09/16/2024 0500 Gross per 24 hour Intake 3689.71 ml Output 1930 ml Net 1759.71 ml I/O last 3 completed shifts: In: 5763.4 [P.O.:180; I.V.:273.4; NG/GT:4910; IV Piggyback:400] Out: 4860 [Urine:4860] Endo: MARY Heme/Onc: Acute normocytic anemia There was cytopenia - Heme consulted - Status post IVIG ID: HEENT infection Meningitis versus encephalitis - ID following - Continue with antibiotics as below - Neurology consult - LP not needed per Dr. Michaud as the patient has adequate meningitis encephalitis coverage >Antibiotics: Anti-infectives (From admission, onward) Start Dose/Rate Route Frequency Ordered Stop 09/08/24 1700 meropenem (MERREM) 1 g in sodium chloride-MBP (NS) 100 mL IVPB-MBP 1 g 33.3 mL/hr over 3 Hours Intravenous Every 8 hours 09/08/24 1640 >Recent Cultures: Culture Date Value Ref Range Status 09/08/2024 Negative after 2 days Final 09/08/2024 Preliminary No fungi isolated. Culture will be held for two weeks. 09/08/2024 Negative after 5 days Preliminary ICU Checklist Drips: HYDROmorphone, 0.5 mg/hr, Last Rate: 0.5 mg/hr (09/16/24 0500) ketamine, 10 mcg/kg/min, Last Rate: 10 mcg/kg/min (09/16/24 0500) Lines: Peripheral IV - Single Lumen (Adult) 09/07/24 2200 median vein (underside of arm), right 20 gauge (Active) Number of days: 9 Peripheral IV - Single Lumen (Adult) 09/12/24 0338 cephalic vein (lateral side of arm), left 22 gauge;1 in length;3/4 in length (Active) Number of days: 4 Restraints: Restraint Type: Unlocked Unlocked Bilateral Wrist (NV): discontinued Unlocked Bilateral Ankle (NV): continued Behaviors Observed: agitated upon awakening Mobility: Progressive Mobility Level Achieved: Level 0 Early: Urethral Catheter (Adult) 09/13/24 0038 10 mL balloon inflation volume (Active) Number of days: 3 GI Prophylaxis (if needed): None VTE Time Out IMPROVE SCORE: 2 (09/07/2024 5:40 PM) Interpretation - High Risk Chemical Prophylaxis heparin (porcine) 5000 unit/mL injection 5,000 Units Subcutaneous Every 8 hours scheduled Chemical VTE prophylaxis NOT ordered. Click here to order if appropriate Chemical Prophylaxis Contraindication: None - I will place appropriate order Heparin Sodium (Porcine) 5000 Units Last dose 2024 10:25 PM Mechanical Prophylaxis SCDs are ordered - Bilateral (Knee High) Code Status and Disposition CODE STATUS: Full DISPOSITION: ICU I spent 31 minutes of Critical Care time in multiple visits throughout the day for collaboration/coordination of care exclusive of time spent performing separately billable medical procedures. I affirm that this patient is critically ill and at high risk for sudden, fatal deterioration due to one or more of the above active issues. I managed/supervised life- or organ-supporting interventions that require frequent physician assessment and reassessment. Critical care time was spent, but not limited to, the review of laboratory test results, medications, relevant radiology and discussing this critically ill patient's care with other medical staff in the unit or at the nursing station onthe floor where the patient is located. My full attention was given to the management of this patient and I was immediately available during this same time. Objective SpO2:96 %,O2 Device: ventilator, , Oxygen Concentration (%): 40 Oxygen Concentration (%) (Drager V500): 40 Temp Last 24 hrs: Temp Min: 99.7 ??F (37.6 ??C) Max: 102.4 ??F (39.1 ??C) WBC Trend White Blood Cell Count Date Value Ref Range Status 2024 12.8 (H) 4.0 - 11.0 Thou/uL Final 2024 10.0 4.0 - 11.0 Thou/uL Final 09/14/2024 10.2 4.0 - 11.0 Thou/uL Final 09/13/2024 7.9 4.0 - 11.0 Thou/uL Final Last Vitals: Pulse:93, Resp:(!) 24, BP:BP Min: 113/55 Max: 145/63 MAP: 86 mm Hg Physical Exam: General: Intermittent agitation; ETT in place; L eye extremely swollen PIV x 2 OG tube Early cath HEENT: supple without LAD Lungs: clear to auscultation bilaterally Heart: regular rate and rhythm, S1, S2 normal, no murmur, click, rub or gallop Abdomen: soft, non-tender; bowel sounds normal; no masses, no organomegaly Extremities: atraumatic, no cyanosis or edema Neuro: Moves extremities I reviewed the prescribed Medications and new Laboratory Blood Work I reviewed all new Imaging Studies (actual images) and compared to prior where applicable Sign: Mo Dickens MD 09/16/2024 6:00 AM * Pierre Michaud MD - 2024 1:21 PM EDT [facility] Progress Note Assessment & Plan Assessment Alcohol use disorder in remission for 15 years Tobacco use disorder with a [id number] history Presenting with altered mental status, left eye swelling, tongue swelling and severe right ear pain MRIs were done and the patient was sent down here It looks like he has a cavernous sinus thrombosis. 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 Plan Continue current therapy His prognosis is guarded I would involve palliative Subjective Continues on the vent Objective Last Vitals Pulse:82,Resp:20,BP:118/63,SpO2:97 %,Weight:92.9 kg (204 lb 12.9 oz) Temp Last 24 hrs: Temp Min: 99.5 ??F (37.5 ??C) Max: 102.2 ??F (39 ??C) Last temp: 100 ??F (37.8 ??C) Physical Exam Lungs: Clear Cardiac: RRR Abdomen: +BS Soft Nontender Skin:No rash No skin lesions Anti-infectives (From admission, onward) Start Dose/Rate Route Frequency Ordered Stop 09/08/24 1700 meropenem (MERREM) 1 g in sodium chloride-MBP (NS) 100 mL IVPB-MBP 1 g 33.3 mL/hr over 3 Hours Intravenous Every 8 hours 09/08/24 1640 Intake/Output Summary (Last 24 hours) at 2024 1322 Last data filed at 2024 1252 Gross per 24 hour Intake 3299.6 ml Output 2970 ml Net 329.6 ml Relevant data reviewed MEDICATIONS Current Facility-Administered Medications Medication Dose Route Frequency Provider Last Rate Last Admin acetaminophen (TYLENOL) 160 mg/5 mL solution 650 mg 650 mg Feeding Tube Q6H PRN Marie Chamberlain PA-C 650 mg at 09/15/24 0847 bisacodyl (DULCOLAX) suppository 10 mg 10 mg Rectal Daily PRN Marie Chamberlain PA-C chlorhexidine (PERIDEX) 0.12 % oral solution 15 mL 15 mL Mouth/Throat BID Korina Lai PA-C 15 mL at 09/15/24 0906 chlorhexidine gluconate 2 % wipes - urethral catheter CHG application Topical Daily Kelly Rodriguez MD 1 each at 09/15/24 0907 glucose (GLUTOSE 15) 40 % oral gel 37.5 g 1 Tube Oral Q15 Min PRN KRISTA Hobbs Or glucose (GLUTOSE 15) 40 % oral gel 75 g 2 Tube Oral Q15 Min PRN KRISTA Hobbs Or dextrose 50 % solution 12.5 g 12.5 g Intravenous Q15 Min PRN KRISTA Hobbs Or dextrose 50 % solution 25 g 25 g Intravenous Q15 Min PRN KRISTA Hobbs Or glucagon (GLUCAGEN) injection 1 mg 1 mg Intramuscular Daily PRN KRISTA Hobbs folic acid (FOLVITE) tablet 1 mg 1 mg Feeding Tube Daily Shira Bonilla PA-C 1 mg at 09/15/24 1246 haloperidol lactate (HALDOL) 5 mg/mL injection 5 mg 5 mg Intravenous Q2H PRN Britton Rodriguez PA-C 5 mg at 09/12/24 2257 heparin (porcine) 5000 unit/mL injection 5,000 Units 5,000 Units Subcutaneous Q8H [facility] Britton Rodriguez PA-C 5,000 Units at 09/15/24 0606 HYDROmorphone (DILAUDID) injection 1 mg 1 mg Intravenous Q2H PRN Shira Bonilla PA-C HYDROmorphone (DILAUDID) IV infusion 50 mg in 50 mL NS (1 mg/mL) (premix) 1 mg/hr Intravenous Continuous Shira Bonilla PA-C 1 mL/hr at 09/15/24 1100 1 mg/hr at 09/15/24 1100 insulin lispro (HumaLOG/ADMELOG) 100 units/mL injection 3-11 Units 3-11 Units Subcutaneous Q4H [facility] KRISTA Hobbs 4 Units at 09/15/24 1238 ketamine 1000 mg in 100 mL NS infusion (10 mg/mL) (premix) 10 mcg/kg/min Intravenous Continuous Daiana Guzman PA-C 5.8 mL/hr at 09/15/24 1100 10 mcg/kg/min at 09/15/24 1100 lactulose (ENULOSE) 10 gm/15 mL solution 20 g 20 g OG Tube BID ROQUE Bautista 20 g at 09/15/24 0847 meropenem (MERREM) 1 g in sodium chloride-MBP (NS) 100 mL IVPB-MBP 1 g Intravenous Q8H Marie Chamberlain PA-C 33.3 mL/hr at 09/15/24 0940 1 g at 09/15/24 0940 methylPREDNISolone sodium succinate (SOLU-Medrol) injection 40 mg 40 mg Intravenous Q8H [facility] KRISTA Jones 40 mg at 09/15/24 0606 metoPROLOL TARTRATE (LOPRESSOR) tablet 50 mg 50 mg Feeding Tube Q12H [facility] KRISTA Modi 50 mg at 09/15/24 0845 multivitamin with minerals (CEROVITE) liquid 15 mL 15 mL Feeding Tube Daily Shira Bonilla PA-C 15 mL at 09/15/24 1247 naloxegol (MOVANTIK) tablet 25 mg 25 mg Feeding Tube Daily before breakfast Marie Chamberlain PA-C 25 mg at 09/15/24 0845 naloxone (NARCAN) 0.4 mg/mL injection 0.4 mg 0.4 mg Intravenous Q5 Min PRN Marie Chamberlain PA-C nicotine (NICODERM CQ) 21 MG/24HR patch 1 patch 1 patch Transdermal Daily KRISTA Bedolla 1patch at 09/15/24 0944 polyethylene glycol (miraLAx) packet 17 g 17 g Feeding Tube BID Marie Chamberlain PA-C 17 g at 09/15/24 0845 protein supplement feeding tube flush (PROSOURCE TF) 3 oz 3 oz Feeding Tube BID Lucia Herrera, RD 3 oz at 09/15/24 0850 [Provider Held] QUEtiapine (SEROquel) tablet 100 mg 100 mg Feeding Tube Nightly Daiana Guzman PA-C 100 mg at 09/14/24 2018 [Provider Held] QUEtiapine (SEROquel) tablet 50 mg 50 mg Feeding Tube BID KRISTA Modi 50 mgat 09/15/24 0846 senna-docusate (SENNA-S) 8.6-50 MG tablet 2 tablet 2 tablet Feeding Tube BID TJ Nagy tablet at 09/15/24 0845 thiamine mononitrate (VITAMIN B-1) tablet 100 mg 100 mg Feeding Tube Daily Shira Bonilla PA-C 100 mg at 09/15/24 1246 Notable labs are: Lab Results Component Value Date WBC 10.0 2024 HGB 7.9 (L) 2024 HCT 23.8 (L) 2024 PLT 131 (L) 2024 Lab Results Component Value Date AST 41 2024 ALT 83 (H) 2024 ALKPHOS 58 2024 BILITOT 1.8 (H) 2024 BILIDIR 1.2 (H) 2024 ALBUMIN 2.2 (L) 2024 PROT 7.1 2024 Lab Results Component Value Date CREAT 0.8 2024 Blood Cultures: Lab Results Component Value Date CULTURE Negative after 2 days 09/08/2024 CULTURE 09/08/2024 No fungi isolated. Culture will be held for two weeks. CULTURE Negative after 5 days 09/08/2024 Urine Cultures: No results found for: CRYSUA , HYALNCSTUA , UROBILINOGEN , BILIUA , BLOODUA , CLARITYUA , COLORUA , UACOMMENT , GLUCU , KETONESUA , LEUKOCYTESUA , NITRITEUA , PHUA , PROTEINUA , RBCUA , SPECIMEN , SPECGRAVUA , SQEPIUA , WBCUA No components found for: WOUND C. Difficile: No results found for: CDIFFTOX , NAP1 Sign Pierre Michaud MD 2024 1:22 PM Pierre Michaud * Kalina Ying LCSW - 2024 1:12 PM EDT SW reviewed record. Pt discussed in progression rounds. Plan for family meeting in coming days. SW can assist in coordinating with family as needed. Feel free to page. Signed: Kalina Ying LCSW * Livan Rahman MD - 2024 9:43 AM EDT Images from the original note were not included. NEUROLOGY CONSULT SERVICE FOLLOW-UP NOTE Patient: Mariah Masterson Date of : 1960 Date of Follow-Up: 09/15/24 Assessment & Plan Assessment: Mariah Masterson is a 63 y.o. right-handed male with past medical history of depression (on fluoxetine and risperidone), alcohol abuse (remission x 15 years), smoking (couple packs per week x 25 years)who had symptom onset on 09/02 with headache, lethargy and right ear pain with progressive vision loss in left eye and presented to [facility] on 09/07 as a transfer from [facility] due to altered mental status, right ear pain, left eye/tongue swelling and concern for left cavernous sinus thrombosis. At [place] he he was found to be febrile, tachypneic with AHRF requiring Oxymask, with lactic acidosis, Sepsis, thrombocytopenia, and CT chest showed aspiration versus endobronchial pneumonia, elevated D-dimer, fibrinogen. CT head showed findings concerning for R otitis externa/media with soft tissue abscess and mastoiditis. MRI brain showed no enlargement of extraocular muscles on the left, mildedema in the intra/extraconal fat and loss of normal flow void in the superior ophthalmic vein as well as mild enlargement, left preseptal soft tissue edema overall concerning for thrombosis of the superior cerebral vein. MRV brain showed normal flow related enhancement in the cortical and dural venous sinuses. Images were reviewed with IR and no thrombosis was appreciated. At he was continued on empiric antibiotics with meropenem, vancomycin, caspofungin for GNR bacteremia. Upon ENT evaluation he was found to have right sided otitis externa and media. Ophthalmology evaluation on 09/07 noted chemosis, proptosis and ophthalmoplegia, with left eye VA no light perception, findings concerning for cavernous sinus thrombosis, with possible disrupted blood flow/involvement of orbital apex or posterior ischemic optic neuropathy explaining visual impairment in his left eye. 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 Anticoagulation was deferred. MRI brain w wo contrast was repeated on 09/12 which shows DWI/FLAIR hyperintense fluid in bilateral lateral ventricles as wellas sulcal FLAIR hyperintensity suggestive of meningitis, L superior ophthalmic vein occlusion, nonocclusive bilateral cavernous sinus thrombosis as well as nonocclusive thrombi in bilateral IJV whichare likely in the setting of underlying infection. On the morning of 09/15 patient was noted to have RUE twitching lasting ~ 1 minute. On exam noted tohave myoclonic jerks in the RUE. Routine EEG which captured these events had no EEG correlate. Primary team concerned for recurrent fever and need for LP. Defer requirement of LP to ID who feel this is not necessary while covered on meropenem. Recommend repeating MRV brain w wo contrast for cavernous sinus thrombosis and bilateral IJV thrombosis to determine if anticoagulation would be safe/indicated. Thrombocytopenia has improved to 131K. Acknowledge that prognosis is felt to be guarded by teams. Plan: - STAT routine EEG for RUE twitching - Repeat MRV brain w wo contrast - Avoid hypotension The Neurology Consult Service will continue to follow this patient. Please contact our team with any additional questions or concerns. Thank you for this consultation and for allowing us to participate in the care of this patient. Discussed with on-call neurology attending: Mic Sorensen MD Chief Complaint concern for left cavernous sinus thrombosis Interval History - as summarized above On the morning of 09/15 patient was noted to have RUE twitching lasting ~ 1 minute. Later noted to have infrequent brief jerking movements of all extremities. Per primary team patient has been less responsive compared to yesterday despite being on lower dose of dilaudid. Review of Systems Review of Systems: Unable Medications Current Medications[1] Objective VITAL SIGNS BP 136/62 Pulse 98 Temp (!) 100.9 ??F (38.3 ??C) Resp (!) 24 Ht 1.905 m (6' 3 ) Wt 92.9 kg (204 lb 12.9 oz) SpO2 99% BMI 25.60 kg/m?? PHYSICAL EXAMINATION General: Ill-appearing. Intubated, sedated on ketamine and dilaudid. Sedation was not paused for exam. Distal extremities are warm. Cognitive status and Language: Intubated, sedated. Eye opening to noxious to quarter mast No fixation or tracking, no command following Cranial nerves: L pupil nonreactive, R pupil 3-2, brisk. Extraocular movements are impaired in the L eye. No BTT bilaterally. Face appears symmetrical, difficult to assess with ETT. Corneal + bilaterally Cough + Motor Function: LUE: weak withdrawal to noxious. RUE: weak withdrawal to noxious. LLE: weak withdrawal to noxious. RLE: weak withdrawal to noxious. Bulk and tone: decreased Sensation: Weak withdrawal to noxious in all extremities Coordination: Unable to reliably assess. Reflexes: 2+ and symmetric in the biceps, brachioradialis, knee, and ankle. Plantar response is flexor bilaterally. Gait: Deferred. Data: - Sign: Livan Rahman PGY-2 [facility] Available on [place]-Text 2024 9:43 AM [1] Current Facility-Administered Medications Medication Dose Route Frequency Provider Last Rate Last Admin acetaminophen (TYLENOL) 160 mg/5 mL solution 650 mg 650 mg Feeding Tube Q6H PRN Marie Chamberlain PA-C 650 mg at 09/15/24 0847 bisacodyl (DULCOLAX) suppository 10 mg 10 mg Rectal Daily PRN Marie Chamberlain PA-C chlorhexidine (PERIDEX) 0.12 % oral solution 15 mL 15 mL Mouth/Throat BID Korina Lai PA-C 15 mL at 09/15/24 0906 chlorhexidine gluconate 2 % wipes - urethral catheter CHG application Topical Daily Kelly Rodriguez MD 1 each at 09/15/24 0907 glucose (GLUTOSE 15) 40 % oral gel 37.5 g 1 Tube Oral Q15 Min PRN KRISTA Hobbs Or glucose (GLUTOSE 15) 40 % oral gel 75 g 2 Tube Oral Q15 Min PRN KRISTA Hobbs Or dextrose 50 % solution 12.5 g 12.5 g Intravenous Q15 Min PRN KRISTA Hobbs Or dextrose 50 % solution 25 g 25 g Intravenous Q15 Min PRN KRISTA Hobbs Or glucagon (GLUCAGEN) injection 1 mg 1 mg Intramuscular Daily PRN KRISTA Hobbs haloperidol lactate (HALDOL) 5 mg/mL injection 5 mg 5 mg Intravenous Q2H PRN Britton Rodriguez PA-C 5 mg at 09/12/24 2257 heparin (porcine) 5000 unit/mL injection 5,000 Units 5,000 Units Subcutaneous Q8H [facility] Britton Rodriguez PA-C 5,000 Units at 09/15/24 0606 HYDROmorphone (DILAUDID) injection 1 mg 1 mg Intravenous Q2H PRN Shira Bonilla PA-C HYDROmorphone (DILAUDID) IV infusion 50 mg in 50 mL NS (1 mg/mL) (premix) 1 mg/hr Intravenous Continuous Shira Bonilla PA-C 1 mL/hr at 09/15/24 0600 1 mg/hr at 09/15/24 0600 insulin lispro (HumaLOG/ADMELOG) 100 units/mL injection 3-11 Units 3-11 Units Subcutaneous Q4H [facility] KRISTA Hobbs 4 Units at 09/15/24 0821 ketamine 1000 mg in 100 mL NS infusion (10 mg/mL) (premix) 10 mcg/kg/min Intravenous Continuous Daiana Guzman PA-C 5.8 mL/hr at 09/15/24 0600 10 mcg/kg/min at 09/15/24 0600 lactulose (ENULOSE) 10 gm/15 mL solution 20 g 20 g OG Tube BID ROQUE Bautista 20 g at 09/15/24 0847 meropenem (MERREM) 1 g in sodium chloride-MBP (NS) 100 mL IVPB-MBP 1 g Intravenous Q8H Marie Chamberlain PA-C 33.3 mL/hr at 09/15/24 0940 1 g at 09/15/24 0940 methylPREDNISolone sodium succinate (SOLU-Medrol) injection 40 mg 40 mg Intravenous Q8H [facility] KRISTA Jones 40 mg at 09/15/24 0606 metoPROLOL TARTRATE (LOPRESSOR) tablet 50 mg 50 mg Feeding Tube Q12H [facility] KRISTA Modi 50 mg at 09/15/24 0845 naloxegol (MOVANTIK) tablet 25 mg 25 mg Feeding Tube Daily before breakfast Marie Chamberlain PA-C 25 mg at 09/15/24 0845 naloxone (NARCAN) 0.4 mg/mL injection 0.4 mg 0.4 mg Intravenous Q5 Min PRN Marie Chamberlain PA-C nicotine (NICODERM CQ) 21 MG/24HR patch 1 patch 1 patch Transdermal Daily KRISTA Bedolla 1patch at 09/14/24 0809 polyethylene glycol (miraLAx) packet 17 g 17 g Feeding Tube BID Marie Chamberlain PA-C 17 g at 09/15/24 0845 protein supplement feeding tube flush (PROSOURCE TF) 3 oz 3 oz Feeding Tube BID Lucia Cerdason, RD 3 oz at 09/15/24 0850 QUEtiapine (SEROquel) tablet 100 mg 100 mg Feeding Tube Nightly Daiana Paolo Guzman PA-C 100 mg at 09/14/24 2018 QUEtiapine (SEROquel) tablet 50 mg 50 mg Feeding Tube BID KRISTA Modi 50 mg at 09/15/24 0846 senna-docusate (SENNA-S) 8.6-50 MG tablet 2 tablet 2 tablet Feeding Tube BID Marie ROQUE ChamberlainC 2 tablet at 09/15/24 0845 Cosigned by Mic Sorensen MD at 09/16/2024 8:47 AM EDT Associated attestation - Mic Sorensen MD - 09/16/2024 8:47 AM EDT Neurology Attending Addendum I saw and evaluated the patient, Mariah [place]on and repeated critical elements of the history and physical examination and personally reviewed neuroimaging studies. I agree with the findings and the plan of care as documented in the note by Dr. Rahman, with the following comments and modifications. Patient was seen on rounds with neurology consult team 06/17. Repeat MRI brain obtained, in comparison to prior MRI a week ago, there appears to be a similar pattern of nonocclusive thrombus in bilateral cavernous sinus. In addition there is nonocclusive thrombus in bilateral IJ as well. There is FLAIR hyperintensity along bilateral occipital horns suggestive of ventriculitis as well as some hyperintense signal in the bilateral frontoparietal occipital lobes, likely also consistent with meningitis. Overall, this likely represents septic thrombophlebitis in setting of meningitis from local head/ear infection. I did not strongly feel lumbar puncture would change our management unless additional microbiological data is needed per ID recommendations. Continue IV antibiotic regimen as indicated. Recommend MRV head to guide if anticoagulation is also indicated for cerebral venous thrombosis. LTM EEG for 24 hours to further evaluate electrographic background and aid in further neurological pro gnostication. This note was prepared using voice recognition software and direct typing. Please excuse inadvertent bindery chief or typing errors, or uncorrected word substitutions. I spent a total of 55 minutes time including time spent counseling the patient, reviewing images, coordinating care, documenting in the EMR, and answering patient/family questions. Mic Sorensen MD Vascular Neurology Attending Department of Neurology, [facility] 09/16/2024 8:42 AM * Shira Bonilla PA-C - 2024 6:50 AM EDT Critical Care Progress Note Subjective Overnight events: - No acute events overnight AM update: - Twitching of RUE that resolved with 1mg ativan - Discussed MRI results with neuro and they believe the scan shows ventriculitis with pus in the ventricles that is a sign of meningitis , not mentioned on radiology read. Plan as below Assessment & Plan Assessment: Mariah Masterson is a 63 year old male with PMHx of depression, alcohol abuse, tobacco use who presented to OSH for concern of left eye swelling, tongue swelling, right ear pain, and decreased visual acuity of left eye. He was ultimately transferred to for ENT, ophthalmology, ID, neuro consults. He was admitted for further management of cavernous sinus thrombosis with course complicated by worsening hypoxia with concern for diffuse alveolar hemorrhage in the setting of ARDS. Principal Problem: Acute cerebral venous sinus thrombosis LOS: 8 days Plan by system Neuro: Cavernous sinus thrombosis, likely meningitis/encephalitis, acute metabolic encephalopathy, Hx depression, tobacco use, ETOH use (in remission 15 years) - Mental status: sedated, not following commands, intermittent twitching in all extremities, eyes both closed and minimally withdrawing to noxious stimuli in all 4 extremities - Spot EEG for intermittent twitching - MRV wwo ordered to evaluate thrombosis in bilateral cavernous sinus and internal jugular veins due to ongoing infection and risk for increased clot burden - Wean dilaudid gtt to 0.5 with 0.5mg PRN Q2h following MRV today - Maintain ketamine @10mcg/kg/min, no longer on standing benzos - Continue haldol 5mg q2h PRN (x0 overnight) - Continue tylenol 650mg q6h PRN for fevers (x2 overnight) - Continue with nicotine patch - active smoker - Hold seroquel 50mg BID, 100mg nightly - Holding home paroxetine 40mg daily and risperidone 0.5 BID - Neuro re-engaged - they believe MRI shows ventriculitis with pus in the ventricles likely representing meningitis. Discussed with ID and no LP needed as already covered on meropenem - SW consulted for help with HCR (daughter next of kin but estranged 30 years; mom and sister in chart) - Will attempt to set up family meeting in coming days giving grim prognosis MRI Brain (09/12): 1. Similar pattern of inflammatory change (better described on CTA head and neck performed same day) about the left orbit with thrombus within the enlarged left superior ophthalmic vein, nonocclusive thrombus in the cavernous sinus bilaterally and venous structures about the middle cranial fossa as noted above (not conspicuous on CTA head and neck), with nonocclusive thrombus bilateral internal jugular veins, etiology is uncertain. 2. Hyperintense signal along the sulci of the frontoparietal and occipital lobes without enhancement. 3. Nonenhancing debris demonstrating diffusion restriction and slight FLAIR hyperintensity within the occipital horns with trace hemosiderin. 4. Right-sided otomastoiditis. 5. Right temporal scalp and temporalis contusion. CTA Head/neck (09/12): 1. Similar appearance of soft tissue changes about the left orbit without definitive filling defect within the left cavernous sinus. 2. No acute intracranial process. 3.Intact anterior and posterior circulations without dissection, major branch occlusion, aneurysm, or vascular malformation. 4. No dissection or high grade stenosis of the carotid or vertebral systems. 5. Scattered groundglass opacities and pneumatoceles imaged lungs with subsegmental foci of consolidation, correlate clinically, infectious versus inflammatory. ENT: Right sided otomastoiditis, left eye swelling (improving), - Ear culture (09/07): + rubi parapsilosis, bordetella species - S/p ciprodex otic drops, hydrocortisone-aceitic acid otic drops - ENT following - reviewed most recent imaging but no clinical evidence of mastoiditis so no changes to plan - Ophthalmology consulted, given no light perception in left eye, poor visual prognosis; no acute interventions recommended to help with left eye vision, no evidence of R eye involvement. Left visionloss maybe likely to thrombosis disrupting blood-flow or involvement of the orbital apex or posterior ischemic optic neuropathy given unremarkable fundus exam, normal IOP (22) and non- edematous opticnerve Behavioral/Sedation scales CAM-ICU Delirium Present: Positive Dwyer Agitation Sedation Scale (RASS) / Modified RASS: -3-->Difficult to wake/moderate sedation Resp: Acute hypoxic respiratory failure 2/2 ARDS, concern for diffuse alveolar hemorrhage - SpO2 95-100% on below vent settings - Bronchoscopy on 09/08; findings consistent with DAH; cultures negative to date - Intubated on 09/08 - VB.43/50/34 after being on SBT overnight - Has been on PS/CPAP 6/5 40% since yesterday AM, mental status remains barrier to extubation - Will continue with 2hrs SBT daily until closer to extubation, rest on vent otherwise - Continue solu-medrol 40mg q8h; s/p 3 days of pulse dose steroids (1g/day) Vasculitis labs: - Glomerular basement membrane Ab negative - Lupus anticoagulant not detected -CCP Ab negative, dsDNA negative, complement C3 85, C4 10 (L) - RF, ANCA, myeloperoxidase Ab, proteinase-3 Ab pending Current vent settings: Ventilation Mode (Drager V500): SPN-CPAP/PS (09/15 229) Oxygen Concentration (%) (Drager V500): 40 (09/15 0230) PEEP (cmH2O) (Drager V500): 6 (09/15 0230) Pressure Support (cmH2O) (Drager V500): 5 (09/15 0230) CT Thorax (09/08): 1. Diffuse interlobular septal thickening, with scattered [...] 3.1 cm, may represent pericardial fluid/pericardial cyst. CXR 09/08: Mild interval improvement in bilateral airspace opacities. CV: non- sustained VT, hypertension (improved), severe aortic stenosis - SBP 100-140s, HR 70-100s - HS trop (09/07): 22 - ProBNP: 486 (2219) - EKG (09/13): Sinus tachycardia with PVCs, RBBB, Qtc 479 - Holding spot diuresis today, can resume if respiratory status worsens - Continue lopressor 50mg Q12h - [facility] cardiology consulted for new severe aortic stenosis - signed off until more stable ECHO 09/11/24: Left ventricular systolic function is hyperdynamic. The quantitative EF by 2D Stark biplane is 80%. Right ventricular systolic function is normal. There is likely severe aortic stenosis based on gradients and velocities. The continuity derived aortic valve area is less reliable in the setting of poor spectral signal. The peak velocity is 4.3 m/s and mean gradient is 45.7 mmHg. There is progressive calcific mitral stenosis. There is a mean transmitral gradient of 5 mmHg at a heart rate of 81 bpm. There is no previous study for comparison in our system. GI: Transaminitis (improving), lactic acidosis (resolved) - Diet: Osmolite 1.5 with FWF 250cc Q4h - LFTs: t.bili 1.8 (2.4), d.bili 1.2 (1.6), AST/ALT 41/83 (38/94), Alk phos 58 (59) - Lactic acid (09/07): 1.9 (5.4 at OSH) - CT A/P at OSH with hepatosplenomegaly, distended gallbladder, thickening of the adrenal glands, bilateral perinephric stranding, distended stomach with air- fluid level. - x0 BM/24hrs, continue bowel reg w/ movantik, added lactulose BID. Will consider enema or suppository if no BM by this afternoon Renal: CLINT (resolved), hypernatremia, hyperkalemia (improved) - BUN/Cr 50/0.8 (44/0.9) - Na 144 (146), FWF @250 Q4h - K 5.3 - UOP 3.5L/24hrs; +287cc/24hrs, +6.9L LOS Early: yes - remove for voiding trial Early indication: Urinary Retention Intake & Output Intake/Output Summary (Last 24 hours) at 2024 0650 Last data filed at 2024 0600 Gross per 24 hour Intake 3824.48 ml Output 3635 ml Net 189.48 ml Endo: No active issues - BG 140-190s - A1c 5.8 - TSH 0.80 - check FS q4h while on TF - Continue SUZE - hypoglycemia protocol Heme/Onc: Acute normocytic anemia, Thrombocytopenia with c/f secondary ITP (improving) - H/H 7.9/23.8 (8.4/25.9) - Plt 131 (97) - Coags (09/08): INR 1.3, aPTT 27, fibrinogen 579, thrombin time 12.2 - Heme Onc following - 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 Findings are not consistent with the presence of deep vein thrombosis bilaterally. Lower Extremity Doppler 09/08/24: Bilaterally, the duplex ultrasound of the lower extremities demonstrates normal Doppler flow with no thrombus seen in patterson scale. Findings are not consistent with the presence of deep vein thrombosisbilaterally. ID: HEENT infection, likely meningitis/encephalitis - Tmax 101.5, WBC 10 (10.2) - UA at OSH positive for nitrites and trace LE no bacteria - fluvid negative - legionella prelim negative - PJP negative - right ear culture (09/07) - yeast and bordetella trematum - blood cx OSH - GNR - blood cultures (09/07) no growth to date - bronch cultures (09/08) no growth to date - MRSA swab (09/07) negative - urine strep presumptive positive - LP not needed per Dr. Michaud, already has been on coverage for meningitis/encephalitis - Continue meropenem (09/08-) - Dr. Michaud following Vascular access: PIV IV access Mobility: Progressive Mobility Level Achieved: Level 0,PT/OT: Yes GI PPx: none DVT PPx: PAS and SC Heparin VTE Risk Assessment VTE Time Out IMPROVE SCORE: 2 (09/07/2024 5:40 PM) Interpretation - High Risk Chemical Prophylaxis heparin (porcine) 5000 unit/mL injection 5,000 Units Subcutaneous Every 8 hours scheduled Heparin Sodium (Porcine) 5000 Units Last dose 2024 6:06 AM Mechanical Prophylaxis SCDs are ordered - Bilateral (Knee High) Mechanical Prophylaxis Contraindication: None - I will order SCDs Drips: HYDROmorphone, 1 mg/hr, Last Rate: 1 mg/hr (09/15/24 0600) ketamine, 10 mcg/kg/min, Last Rate: 10 mcg/kg/min (09/15/24 0600) Lines: Peripheral IV - Single Lumen (Adult) 09/07/24 2200 median vein (underside of arm), right 20 gauge (Active) Number of days: 8 Peripheral IV - Single Lumen (Adult) 09/12/24 0338 cephalic vein (lateral side of arm), left 22 gauge;1 in length;3/4 in length (Active) Number of days: 3 Enteric Access and Early: Naso/Orogastric Tube (Adult) 09/08/24 1100 Hancock sump 18 Fr mouth, center (Active) Number of days: 7 Urethral Catheter (Adult) 09/13/24 0038 10 mL balloon inflation volume (Active) Number of days: 2 Restraints: soft wrists bilaterally Interference with medical treatment Code: FULL Dispo: ICU, per Dr. Dickens Objective Last Vitals: Pulse:98, Resp:(!) 24, BP:BP Min: 103/55 Max: 136/62 MAP: 86 mm Hg SpO2:99 % CVP: Temp Last 24 hrs: Temp Min: 99.3 ??F (37.4 ??C) Max: 101.8 ??F (38.8 ??C) Physical Exam: General appearance: adult male, laying in bed, sedated and not responsive HEENT: left eye swollen shut, significant subconjunctival hemorrhage noted, no light perception or accomodation; no right eye involvement; R pupil reactive to light but sluggish Lungs: diminished lung sounds throughout Heart: RRR, S1S2, murmur present Abdomen: + bowel sounds, abdomen soft, non-distended Extremities: no peripheral edema, pulses 2+ at radius and DP Neurologic: sedated, not following commands, intermittent twitching in all extremities, eyes both closed and minimally withdrawing to noxious stimuli in all 4 extremities Labs: Recent Labs 09/13/24 0027 09/14/24 0011 09/15/24 0026 WBC 7.9 10.2 10.0 HGB 7.8* 8.4* 7.9* HCT 24.5* 25.9* 23.8* PLT 68* 97* 131* MCV 97 96 94 MCH 31.0 31.2* 31.2* MCHC 31.8 32.4 33.2 RDW 13.2 12.6 12.2 Recent Labs 09/13/24 0027 09/13/24 1420 09/14/24 0011 09/14/24 1631 09/15/24 0026 BUN 35* 35* 39* 44* 50* CREAT 0.8 0.8 0.8 0.9 0.8 NA 145 144 146* 146* 144 K 5.4* 4.7 5.6* 5.2 5.3 CO2 31 32 32 31 32 CL 112* 107 110* 109* 108* MG 2.7 2.5 2.4 2.4 2.5 PHOS 3.2 3.8 3.3 4.0 4.2 AST -- -- 38 -- 41 ALT -- -- 94* -- 83* PROT -- -- 7.2 -- 7.1 No results for input(s): PT , PTT , INR in the last 72 hours. Medications Medication/MAR Report: Medications Scheduled Medication Ordered Dose/Rate, Route, Frequency Last Action chlorhexidine (PERIDEX) 0.12 % oral solution 15 mL 15 mL, MT, BID Given, 15 mL at 09/14 2017 chlorhexidine gluconate 2 % wipes - urethral catheter CHG application No Dose/Rate, TOP, Daily Given, 1 each at 09/15 1807 heparin (porcine) 5000 unit/mL injection 5,000 Units 5,000 Units, SC, Q8H ZO Given, 5,000 Units at 09/15 605 insulin lispro (HumaLOG/ADMELOG) 100 units/mL injection 3-11 Units 3-11 Units, SC, Q4H ZO Given, 4 Units at 09/15 0426 meropenem (MERREM) 1 g in sodium chloride-MBP (NS) 100 mL IVPB-MBP 1 g, IV, Q8H New Bag, 1 g at 09/15 24 methylPREDNISolone sodium succinate (SOLU-Medrol) injection 40 mg 40 mg, IV, Q8H ZO Given, 40 mg at 09/15 605 metoPROLOL TARTRATE (LOPRESSOR) tablet 50 mg 50 mg, FT, Q12H ZO Given, 50 mg at 09/14 2017 naloxegol (MOVANTIK) tablet 25 mg 25 mg, FT, Daily before breakfast Given, 25 mg at 09/14 816 nicotine (NICODERM CQ) 21 MG/24HR patch 1 patch 1 patch, TD, Daily Patch Applied, 1 patch at 09/14 808 polyethylene glycol (miraLAx) packet 17 g 17 g, FT, BID Given, 17 g at 09/14 2017 protein supplement feeding tube flush (PROSOURCE TF) 3 oz 3 oz, FT, BID Given, 3 oz at 09/15 2019 QUEtiapine (SEROquel) tablet 100 mg 100 mg, FT, Nightly Given, 100 mg at 09/14 2017 QUEtiapine (SEROquel) tablet 50 mg 50 mg, FT, BID Given, 50 mg at 09/14 1617 senna-docusate (SENNA-S) 8.6-50 MG tablet 2 tablet 2 tablet, FT, BID Given, 2 tablet at 09/14 2017 Continuous Medication Ordered Dose/Rate, Route, Frequency Last Action HYDROmorphone (DILAUDID) IV infusion 50 mg in 50 mL NS (1 mg/mL) (premix) 1 mg/hr, IV, Continuous Rate/Dose Verify, 1 mg/hr at 09/15 599 ketamine 1000 mg in 100 mL NS infusion (10 mg/mL) (premix) 10 mcg/kg/min, IV, Continuous Rate/Dose Verify, 10 mcg/kg/min at 09/15 599 PRN Medication Ordered Dose/Rate, Route, Frequency Last Action acetaminophen (TYLENOL) 160 mg/5 mL solution 650 mg 650 mg, FT, Q6H PRN Given, 650 mg at 09/15 24 bisacodyl (DULCOLAX) suppository 10 mg 10 mg, RE, Daily PRN Ordered dextrose 50 % solution 12.5 g (Or Linked Group #1) 12.5 g, IV, Q15 Min PRN Ordered dextrose 50 % solution 25 g (Or Linked Group #1) 25 g, IV, Q15 Min PRN Ordered glucagon (GLUCAGEN) injection 1 mg (Or Linked Group #1) 1 mg, IM, Daily PRN Ordered glucose (GLUTOSE 15) 40 % oral gel 37.5 g (Or Linked Group #1) 1 Tube, PO, Q15 Min PRN Ordered glucose (GLUTOSE 15) 40 % oral gel 75 g (Or Linked Group #1) 2 Tube, PO, Q15 Min PRN Ordered haloperidol lactate (HALDOL) 5 mg/mL injection 5 mg 5 mg, IV, Q2H PRN Given, 5 mg at 09/12 2256 HYDROmorphone (DILAUDID) injection 1 mg 1 mg, IV, Q2H PRN Ordered lactulose (ENULOSE) 10 gm/15 mL solution 20 g 30 mL, PER OG TUBE, Q4H PRN Ordered naloxone (NARCAN) 0.4 mg/mL injection 0.4 mg 0.4 mg, IV, Q5 Min PRN Ordered Sign: Shira Bonilla PA-C 2024 6:50 AM * Mo Dickens MD - 2024 6:14 AM EDT Images from the original note were not included. Division of Pulmonary, Critical Care, and Sleep Medicine [address] [place] [address], [address] [address] Critical Care Note Assessment 64 y.o. male with hx of Etoh use admitted on 09/07/2024 for eye swelling (admitted to OSH on 09/06/24). Course c/b thrombocytopenia, sepsis, respiratory failure - tx to on 09/07/24. Intubated on 09/08/24. Active Problems: Acute metabolic encephalopathy Cavernous sinus thrombosis Acute hypoxic respiratory failure Diffuse alveolar hemorrhage (unclear etiology) R otitis media Pulmonary edema Volume overload Hypoalbuminemia Thrombocytopenia Sepsis SIRS ARDS Lactic acidosis SVT Shock Hypotension Leukocytosis CLINT Comorbid Conditions: Active Nicotine Dependence Total LOS: 8 days Overnight MRI brain completed with concern for meningitis Episode of twitching but less focal Plan by System I performed rounds on the medical unit with the entire critical care team and we discussed the events below while developing the daily treatment plan: Neuro: CAM-ICU Delirium Present: Positive Dwyer Agitation Sedation Scale (RASS) / Modified RASS: -3-->Difficult to wake/moderate sedation Concern for seizure activity Acute metabolic encephalopathy Concern for meningitis Cavernous sinus thrombosis Depression Alcohol use in remission for 15 years - Tylenol - Haldol - Hold Seroquel - Hold paroxetine and risperidone - Neurology consult - Continue ketamine - EEG - MRV - wean Sedation - no role for LP after discssion with ID - abx as below - discuss steroids with neuro and if they want to keep or wean Resp: Ventilator Start 09/08/24 0935 (Active) Number of days: 7 Ventilation Mode (Drager V500): SPN-CPAP/PS Oxygen Concentration (%) (Drager V500): 40 PEEP (cmH2O) (Drager V500): 6 Pressure Support (cmH2O) (Drager V500): 5 Unable to protect airway Acute hypoxemic respiratory failure ARDS Diffuse alveolar hemorrhage likely due to ARDS and fluid overload and thrombocytopenia - Vasculitis labs pending - Vent Management: - Daily SBT-SAT if meets criteria from protocol - lung protective ventilation TV 6-8cc/kg ideal body wt - maintain plt pressure <30 and driving pressure <15 if able, but also assure adequate ventilation - mental status is barrier to extubation - steroids more for meningitis and will discuss with neuro before weaning, but can wean from a pulmperspective - gas CV: Nonsustained VT Hypertension Severe aortic stenosis - Holding diuresis today - Continue pressors - Cardiology consult signed off for the severe aortic stenosis >Echo: TTE 09/11/2024 Left ventricular systolic function is hyperdynamic. The quantitative EF by 2D Stark biplane is 80%. Right ventricular systolic function is normal. There is likely severe aortic stenosis based on gradients and velocities. The continuity derived aortic valve area is less reliable in the setting of poor spectral signal. The peak velocity is 4.3 m/s and mean gradient is 45.7 mmHg. There is progressive calcific mitral stenosis. There is a mean transmitral gradient of 5 mmHg at a heart rate of 81 bpm. There is no previous study for comparison in our system. GI: Transaminitis-improving - Increase bowel regimen as the patient has not had a bowel movement - Lactulose - Enema >Nutrition: Diet/Nutrition Received: NPO, tube feeding Diet, Tube Feeding, No Tray Continuous; OG Tube; Osmolite 1.5; 20 mL; 65 mL/hr; x23 hrs (hold 1 hour before movantik administration); Water; Every 4 hours; 250; NPO Renal: CLINT Hyponatremia Hyperkalemia - Remove Early >Intake & Output Intake/Output Summary (Last 24 hours) at 2024 0614 Last data filed at 2024 0500 Gross per 24 hour Intake 3752.68 ml Output 3485 ml Net 267.68 ml I/O last 3 completed shifts: In: 5207.5 [P.O.:180; I.V.:477.5; NG/GT:3950; IV Piggyback:600] Out: 5655 [Urine:5655] Endo: MARY Heme/Onc: Acute normocytic anemia There was cytopenia - Heme consulted - Status post IVIG ID: HEENT infection Meningitis versus encephalitis - ID following - Continue with antibiotics as below - Neurology consult - LP not needed per Dr. Michaud as the patient has adequate meningitis encephalitis coverage >Antibiotics: Anti-infectives (From admission, onward) Start Dose/Rate Route Frequency Ordered Stop 09/08/24 1700 meropenem (MERREM) 1 g in sodium chloride-MBP (NS) 100 mL IVPB-MBP 1 g 33.3 mL/hr over 3 Hours Intravenous Every 8 hours 09/08/24 1640 >Recent Cultures: Culture Date Value Ref Range Status 09/08/2024 Negative after 2 days Final 09/08/2024 Preliminary No fungi isolated. Culture will be held for two weeks. 09/08/2024 Negative after 5 days Preliminary ICU Checklist Drips: HYDROmorphone, 1 mg/hr, Last Rate: 1 mg/hr (09/15/24 0500) ketamine, 10 mcg/kg/min, Last Rate: 10 mcg/kg/min (09/15/24 0500) Lines: Peripheral IV - Single Lumen (Adult) 09/07/24 2200 median vein (underside of arm), right 20 gauge (Active) Number of days: 8 Peripheral IV - Single Lumen (Adult) 09/12/24 0338 cephalic vein (lateral side of arm), left 22 gauge;1 in length;3/4 in length (Active) Number of days: 3 Restraints: Restraint Type: Unlocked Unlocked Bilateral Wrist (NV): continued Unlocked Bilateral Ankle (NV): continued Behaviors Observed: agitated upon awakening, pulling at lines/tubes, agitated with patient care Mobility: Progressive Mobility Level Achieved: Level 0 Early: Urethral Catheter (Adult) 09/13/24 0038 10 mL balloon inflation volume (Active) Number of days: 2 GI Prophylaxis (if needed): None VTE Time Out IMPROVE SCORE: 2 (09/07/2024 5:40 PM) Interpretation - High Risk Chemical Prophylaxis heparin (porcine) 5000 unit/mL injection 5,000 Units Subcutaneous Every 8 hours scheduled Chemical VTE prophylaxis NOT ordered. Click here to order if appropriate Chemical Prophylaxis Contraindication: None - I will place appropriate order Heparin Sodium (Porcine) 5000 Units Last dose 2024 6:06 AM Mechanical Prophylaxis SCDs are ordered - Bilateral (Knee High) Code Status and Disposition CODE STATUS: Full DISPOSITION: ICU I spent 31 minutes of Critical Care time in multiple visits throughout the day for collaboration/coordination of care exclusive of time spent performing separately billable medical procedures. I affirm that this patient is critically ill and at high risk for sudden, fatal deterioration due to one or more of the above active issues. I managed/supervised life- or organ-supporting interventions that require frequent physician assessment and reassessment. Critical care time was spent, but not limited to, the review of laboratory test results, medications, relevant radiology and discussing this critically ill patient's care with other medical staff in the unit or at the nursing station [facility] floor where the patient is located. My full attention was given to the management of this patient and I was immediately available during this same time. Objective SpO2:96 %,O2 Device: ventilator, , Oxygen Concentration (%): 40 Oxygen Concentration (%) (Drager V500): 40 Temp Last 24 hrs: Temp Min: 99.3 ??F (37.4 ??C) Max: 101.8 ??F (38.8 ??C) WBC Trend White Blood Cell Count Date Value Ref Range Status 2024 10.0 4.0 - 11.0 Thou/uL Final 09/14/2024 10.2 4.0 - 11.0 Thou/uL Final 09/13/2024 7.9 4.0 - 11.0 Thou/uL Final 09/12/2024 6.0 4.0 - 11.0 Thou/uL Final Last Vitals: Pulse:93, Resp:20, BP:BP Min: 103/55 Max: 121/58 MAP: 86 mm Hg Physical Exam: General: Intermittent agitation; ETT in place; L eye extremely swollen PIV x 2 OG tube Early cath HEENT: supple without LAD Lungs: clear to auscultation bilaterally Heart: regular rate and rhythm, S1, S2 normal, no murmur, click, rub or gallop Abdomen: soft, non-tender; bowel sounds normal; no masses, no organomegaly Extremities: atraumatic, no cyanosis or edema Neuro: Moves extremities I reviewed the prescribed Medications and new Laboratory Blood Work I reviewed all new Imaging Studies (actual images) and compared to prior where applicable Sign: Mo Dickens MD 2024 6:14 AM * Pierre Michaud MD - 09/14/2024 12:49 PM EDT [facility] Progress Note Assessment & Plan Assessment Alcohol use disorder in remission for 15 years Tobacco use disorder with a [id number] history Presenting with altered mental status, left eye swelling, tongue swelling and severe right ear pain MRIs were done and the patient was sent down here It looks like he has a cavernous sinus thrombosis. 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 Bronchoscopy was done 417 culture of his ear is growing yeast and Bordetella trematum He remains on the ventilator Repeat MRI is about the same He is not making any progress Temperature is 101.8 with a white count of 10.2 and a creatinine of 0.8 It is unclear to know where we are going with all of this or what to expect Plan I think his overall prognosis is very poor We are continuing antibiotics Subjective Remains on the ventilator Objective Last Vitals Pulse:92,Resp:17,BP:125/60,SpO2:99 %,Weight:92.9 kg (204 lb 12.9 oz) Temp Last 24 hrs: Temp Min: 100 ??F (37.8 ??C) Max: 101.8 ??F (38.8 ??C) Last temp: (!) 100.8 ??F (38.2 ??C) Physical Exam Lungs: Clear Cardiac: RRR Abdomen: +BS Soft Nontender Skin:No rash Left eye remains the same Anti-infectives (From admission, onward) Start Dose/Rate Route Frequency Ordered Stop 09/08/24 1700 meropenem (MERREM) 1 g in sodium chloride-MBP (NS) 100 mL IVPB-MBP 1 g 33.3 mL/hr over 3 Hours Intravenous Every 8 hours 09/08/24 1640 Intake/Output Summary (Last 24 hours) at 09/14/2024 1249 Last data filed at 09/14/2024 1100 Gross per 24 hour Intake 2180.12 ml Output 2470 ml Net -289.88 ml Relevant data reviewed MEDICATIONS Current Facility-Administered Medications Medication Dose Route Frequency Provider Last Rate Last Admin acetaminophen (TYLENOL) 160 mg/5 mL solution 650 mg 650 mg Feeding Tube Q6H PRN Marie Chamberlain PA-C 650 mg at 09/14/24 1247 bisacodyl (DULCOLAX) suppository 10 mg 10 mg Rectal Daily PRN Marie Chamberlain PA-C chlorhexidine (PERIDEX) 0.12 % oral solution 15 mL 15 mL Mouth/Throat BID Korina Lai PA-C 15 mL at 09/14/24 0822 chlorhexidine gluconate 2 % wipes - urethral catheter CHG application Topical Daily Kelly Rodriguez MD glucose (GLUTOSE 15) 40 % oral gel 37.5 g 1 Tube Oral Q15 Min PRN KRISTA Hobbs Or glucose (GLUTOSE 15) 40 % oral gel 75 g 2 Tube Oral Q15 Min PRN KRISTA Hobbs Or dextrose 50 % solution 12.5 g 12.5 g Intravenous Q15 Min PRN KRISTA Hobbs Or dextrose 50 % solution 25 g 25 g Intravenous Q15 Min PRN KRISTA Hobbs Or glucagon (GLUCAGEN) injection 1 mg 1 mg Intramuscular Daily PRN KRISTA Hobbs haloperidol lactate (HALDOL) 5 mg/mL injection 5 mg 5 mg Intravenous Q2H PRN Britton Rodriguez PA-C 5 mg at 09/12/24 2257 heparin (porcine) 5000 unit/mL injection 5,000 Units 5,000 Units Subcutaneous Q8H [facility] Britton Rodriguez PA-C 5,000 Units at 09/14/24 0500 HYDROmorphone (DILAUDID) injection 1 mg 1 mg Intravenous Q2H PRN Shira Bonilla PA-C HYDROmorphone (DILAUDID) IV infusion 50 mg in 50 mL NS (1 mg/mL) (premix) 1 mg/hr Intravenous Continuous Shiar Bonilla PA-C 1 mL/hr at 09/14/24 1217 1 mg/hr at 09/14/24 1217 insulin lispro (HumaLOG/ADMELOG) 100 units/mL injection 3-11 Units 3-11 Units Subcutaneous Q4H [facility] KRISTA Hobbs 4 Units at 09/14/24 1246 ketamine 1000 mg in 100 mL NS infusion (10 mg/mL) (premix) 10 mcg/kg/min Intravenous Continuous Daiana Guzman PA-C 5.8 mL/hr at 09/14/24 0949 10 mcg/kg/min at 09/14/24 0949 lactulose (ENULOSE) 10 gm/15 mL solution 20 g 30 mL OG Tube Q4H PRN Marie Chamberlain PA-C meropenem (MERREM) 1 g in sodium chloride-MBP (NS) 100 mL IVPB-MBP 1 g Intravenous Q8H Marie Chamberlain PA-C 33.3 mL/hr at 09/14/24 0813 1 g at 09/14/24 0813 methylPREDNISolone sodium succinate (SOLU-Medrol) injection 40 mg 40 mg Intravenous Q8H [facility] KRISTA Jones 40 mg at 09/14/24 0500 metoPROLOL TARTRATE (LOPRESSOR) tablet 50 mg 50 mg Feeding Tube Q12H [facility] KRISTA Modi 50 mg at 09/14/24 0817 naloxegol (MOVANTIK) tablet 25 mg 25 mg Feeding Tube Daily before breakfast Marie Chamberlain PA-C 25 mg at 09/14/24 0817 naloxone (NARCAN) 0.4 mg/mL injection 0.4 mg 0.4 mg Intravenous Q5 Min PRN Marie Chamberlain PA-C nicotine (NICODERM CQ) 21 MG/24HR patch 1 patch 1 patch Transdermal Daily KRISTA Bedolla 1patch at 09/14/24 0809 polyethylene glycol (miraLAx) packet 17 g 17 g Feeding Tube BID ROQUE NagyC 17 g at 09/14/24 1247 protein supplement feeding tube flush (PROSOURCE TF) 3 oz 3 oz Feeding Tube BID Lucia Herrera, RD 3 oz at 09/14/24 0823 QUEtiapine (SEROquel) tablet 100 mg 100 mg Feeding Tube Nightly Daiana Guzman PA-C 100 mg at 09/13/245 QUEtiapine (SEROquel) tablet 50 mg 50 mg Feeding Tube BID KRISTA Modi 50 mg at 09/14/24 0817 senna-docusate (SENNA-S) 8.6-50 MG tablet 2 tablet 2 tablet Feeding Tube BID KRISTA Nagy-C2 tablet at 09/14/24 1247 Notable labs are: Lab Results Component Value Date WBC 10.2 09/14/2024 HGB 8.4 (L) 09/14/2024 HCT 25.9 (L) 09/14/2024 PLT 97 (L) 09/14/2024 Lab Results Component Value Date AST 38 09/14/2024 ALT 94 (H) 09/14/2024 ALKPHOS 59 09/14/2024 BILITOT 2.4 (H) 09/14/2024 BILIDIR 1.6 (H) 09/14/2024 ALBUMIN 2.3 (L) 09/14/2024 PROT 7.2 09/14/2024 Lab Results Component Value Date CREAT 0.8 09/14/2024 Blood Cultures: Lab Results Component Value Date CULTURE Negative after 2 days 09/08/2024 CULTURE 09/08/2024 No fungi isolated. Culture will be held for two weeks. CULTURE Negative after 5 days 09/08/2024 Urine Cultures: No results found for: CRYSUA , HYALNCSTUA , UROBILINOGEN , BILIUA , BLOODUA , CLARITYUA , COLORUA , UACOMMENT , GLUCU , KETONESUA , LEUKOCYTESUA , NITRITEUA , PHUA , PROTEINUA , RBCUA , SPECIMEN , SPECGRAVUA , SQEPIUA , WBCUA No components found for: WOUND C. Difficile: No results found for: CDIFFTOX , NAP1 Sign Pierre Michaud MD 09/14/2024 12:49 PM Pierre Michaud * Pierre Rosen OT - 09/14/2024 8:19 AM EDT Occupational Therapy Contact Note Chart reviewed prior to attempted Occupational Therapy follow up. Patient is not medically appropriate for therapy on this date secondary to continued sedation/inability to participate or follow commands. Spoke with RN/PA during progression rounds. Will follow up for occupational therapy as appropriate. Flowsheet Data 09/14/24 0819 OT Time and Intention OT Follow-Up Visit medically inappropriate Mode of Treatment occupational therapy Session Not Performed other (see comments) (Continues to be inappropriate for therapy at this time due to continued sedation/unable to follow directions.) Comment, Session Not Performed Chart reviewed, spoke about during progression rounds, inappropriatefor therapy on this date due to continued sedation/inability to follow directions. Sign: Pierre Rosen OT * Shira Bonilla PA-C - 09/14/2024 7:11 AM EDT Critical Care Progress Note Subjective Overnight events: - Lokelma x1 for K 5.6 - FWF increased to 200 Q4h for Na 146 Assessment & Plan Assessment: Mariah Masterson is a 63 year old male with PMHx of depression, alcohol abuse, tobacco use who presented to OSH for concern of left eye swelling, tongue swelling, right ear pain, and decreased visual acuity of left eye. He was ultimately transferred to for ENT, ophthalmology, ID, neuro consults. He was admitted for further management of cavernous sinus thrombosis with course complicated by worsening hypoxia with concern for diffuse alveolar hemorrhage in the setting of ARDS. 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 Continue with IV abx; anticoagulation typically mainstay of treatment but cannot be started secondary to thrombocytopenia - SW consulted for help with HCR (daughter next of kin but estranged 30 years; mom and sister in chart) MRI Brain (09/12): 1. Similar pattern of inflammatory change (better described on CTA head and neck performed same day) about the left orbit with thrombus within the enlarged left superior ophthalmic vein, nonocclusive thrombus in the cavernous sinus bilaterally and venous structures about the middle cranial fossa as noted above (not conspicuous on CTA head and neck), with nonocclusive thrombus bilateral internal jugular veins, etiology is uncertain. 2. Hyperintense signal along the sulci of the frontoparietal and occipital lobes without enhancement. 3. Nonenhancing debris demonstrating diffusion restriction and slight FLAIR hyperintensity within the occipital horns with trace hemosiderin. 4. Right-sided otomastoiditis. 5. Right temporal scalp and temporalis contusion. CTA Head/neck (09/12): 1. Similar appearance of soft tissue changes about the left orbit without definitive filling defect within the left cavernous sinus. 2. No acute intracranial process. 3.Intact anterior and posterior circulations without dissection, major branch occlusion, aneurysm, or vascular malformation. 4. No dissection or high grade stenosis of the carotid or vertebral systems. 5. Scattered groundglass opacities and pneumatoceles imaged lungs with subsegmental foci of consolidation, correlate clinically, infectious versus inflammatory. ENT: Right sided otomastoiditis, left eye swelling (improving), - Ear culture (09/07): + rubi parapsilosis, bordetella species - S/p ciprodex otic drops, hydrocortisone-aceitic acid otic drops - ENT following - reviewed most recent imaging but no clinical evidence of mastoiditis so no changes to plan - Ophthalmology consulted, given no light perception in left eye, poor visual prognosis; no acute interventions recommended to help with left eye vision, no evidence of R eye involvement. Left visionloss maybe likely to thrombosis disrupting blood-flow or involvement of the orbital apex or posterior ischemic optic neuropathy given unremarkable fundus exam, normal IOP (22) and non- edematous opticnerve Behavioral/Sedation scales CAM-ICU Delirium Present: Positive Dwyer Agitation Sedation Scale (RASS) / Modified RASS: -2-->Wakes slowly, very drowsy/light sedation Resp: Hypoxia with concern for diffuse alveolar hemorrhage in the setting of ARDS (improving) - SpO2 96-99% on below vent settings - VBG (09/09): 7.29/52/58 (previous ABG 7.3/50/26) - Bronchoscopy on 09/08; findings consistent with DAH; cultures negative to date - Intubated on 09/08 - Tolerated PS/CPAP 6/5 40% x13 hrs yesterday, will continue today. Mental status remains barrier to extubation - Continue solu-medrol 40mg q8h; s/p 3 days of pulse dose steroids (1g/day) DAH labs: - Glomerular basement membrane Ab negative - Lupus anticoagulant not detected - RF, CCP Ab, dsDNA, complement C3, C4, ANCA, myeloperoxidase Ab, proteinase-3 Ab pending Current vent settings: Ventilation Mode (Drager V500): PC-AC (09/14 308) Rate Set (breaths/min) (Drager V500): 12 (09/14 308) Pressure Set (cmH2O): 18 (09/14 308) Oxygen Concentration (%) (Drager V500): 40 (09/14 308) PEEP (cmH2O) (Drager V500): 6 (09/14 308) CT Thorax (09/08): 1. Diffuse interlobular septal thickening, with scattered [...] 3.1 cm, may represent pericardial fluid/pericardial cyst. CXR 4/18: Mild interval improvement in bilateral airspace opacities. CV: non- sustained VT, hypertension, severe aortic stenosis - SBP 120-170s, HR 80-110s - HS trop (09/07): 22 - ProBNP: 2219 (3773), trending - EKG (09/13): Sinus tachycardia with PVCs, RBBB, Qtc 479 - Continue to spot diurese for goal net negative; will give 40mg IV Lasix again today - Continue lopressor 50mg Q12h - [facility] cardiology consulted for new severe aortic stenosis, appreciate recs ECHO 09/11/24: Left ventricular systolic function is hyperdynamic. The quantitative EF by 2D Satrk biplane is 80%. Right ventricular systolic function is normal. There is likely severe aortic stenosis based on gradients and velocities. The continuity derived aortic valve area is less reliable in the setting of poor spectral signal. The peak velocity is 4.3 m/s and mean gradient is 45.7 mmHg. There is progressive calcific mitral stenosis. There is a mean transmitral gradient of 5 mmHg at a heart rate of 81 bpm. There is no previous study for comparison in our system. GI: Transaminitis (improving), lactic acidosis (resolved) - Diet: Osmolite 1.5 with FWF 200cc Q4h - LFTs: t.bili 2.4 (4.5), d.bili 1.6 (3.4), AST/ALT 38/94 (109/152), Alk phos 59 (56) - Lactic acid 1.9 (5.4 at OSH) - CT A/P at OSH with hepatosplenomegaly, distended gallbladder, thickening of the adrenal glands, bilateral perinephric stranding, distended stomach with air- fluid level. - x0 BM/24hrs, continue bowel reg w/ movantik Renal: CLINT (improving), hyperkalemia - BUN/Cr 39/0.8 (35/0.8) - Na 146 (144) - FWF increased to 200q4h - K 5.6 (4.7) - 1x dose lokelma given overnight but no stool output so far - UOP 3.5L/24hrs; -349cc/24hrs, +6.7L LOS - Recheck PM lytes Early: yes - remove for voiding trial Early indication: Urinary Retention Intake & Output Intake/Output Summary (Last 24 hours) at 09/14/2024 0711 Last data filed at 09/14/2024 0700 Gross per 24 hour Intake 3155.59 ml Output 3505 ml Net -349.41 ml Endo: No active issues - BG 140s - A1c 5.8 - TSH 0.80 - check FS q4h while on TF - Continue SUZE - hypoglycemia protocol Heme/Onc: Acute normocytic anemia, Thrombocytopenia with c/f secondary ITP - H/H 8.4/25.9 (7.8/24.5) - Plt 97 (68) - Coags (09/08): INR 1.3, aPTT 27, fibrinogen 579, thrombin time 12.2 - Heme Onc following - 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 Findings are not consistent with the presence of deep vein thrombosis bilaterally. Lower Extremity Doppler 09/08/24: Bilaterally, the duplex ultrasound of the lower extremities demonstrates normal Doppler flow with no thrombus seen in patterson scale. Findings are not consistent with the presence of deep vein thrombosisbilaterally. ID: possible PNA, HEENT infection - Tmax 101.8, WBC 10.2 - UA at OSH positive for nitrites and trace LE no bacteria - fluvid negative - legionella prelim negative - PJP negative - right ear culture (09/07) - yeast bordetella species - blood cx OSH - GNR - blood cultures (09/07) no growth to date - bronch cultures (09/08) no growth to date - MRSA swab (09/07) negative - urine strep presumptive positive - continue meropenem (09/08-) - Dr. Michaud following Vascular access: PIV IV access Mobility: Progressive Mobility Level Achieved: Level 0,PT/OT: Yes GI PPx: none DVT PPx: PAS and SC Heparin VTE Risk Assessment VTE Time Out IMPROVE SCORE: 2 (09/07/2024 5:40 PM) Interpretation - High Risk Chemical Prophylaxis heparin (porcine) 5000 unit/mL injection 5,000 Units Subcutaneous Every 8 hours scheduled Heparin Sodium (Porcine) 5000 Units Last dose 09/14/2024 5:00 AM Mechanical Prophylaxis SCDs are ordered - Bilateral (Knee High) Mechanical Prophylaxis Contraindication: None - I will order SCDs Drips: HYDROmorphone, 2 mg/hr, Last Rate: 2 mg/hr (09/14/24 0700) ketamine, 10 mcg/kg/min, Last Rate: 10 mcg/kg/min (09/14/24 0700) Lines: Peripheral IV - Single Lumen (Adult) 09/07/24 2200 median vein (underside of arm), right 20 gauge (Active) Number of days: 7 Peripheral IV - Single Lumen (Adult) 09/12/24 0338 cephalic vein (lateral side of arm), left 22 gauge;1 in length;3/4 in length (Active) Number of days: 2 Enteric Access and Early: Naso/Orogastric Tube (Adult) 09/08/24 1100 [place]ancock sump 18 Fr mouth, center (Active) Number of days: 6 Urethral Catheter (Adult) 09/13/24 0038 10 mL balloon inflation volume (Active) Number of days: 1 Restraints: soft wrists bilaterally Interference with medical treatment Code: FULL Dispo: ICU, per Dr. Rodriguez Objective Last Vitals: Pulse:86, Resp:14, BP:BP Min: 120/56 Max: 144/84 MAP: 86 mm Hg SpO2:98 % CVP: Temp Last 24 hrs: Temp Min: 100 ??F (37.8 ??C) Max: 102 ??F (38.9 ??C) Physical Exam: General appearance: adult male, laying in bed, sedated, calm HEENT: left eye swollen shut, significant subconjunctival hemorrhage noted, no light perception or accomodation; no right eye involvement; R pupil reactive to light but sluggish Lungs: coarse and diminished lung sounds throughout Heart: RRR, S1S2, murmur present Abdomen: + bowel sounds, abdomen soft, non-distended Extremities: no peripheral edema, pulses 2+ at radius and DP Neurologic: moving extremities spontaneously, not following commands, grimace to stimuli Labs: Recent Labs 09/11/24 1115 09/12/24 0019 09/13/24 0027 09/14/24 0011 WBC 5.7 6.0 7.9 10.2 HGB 8.1* 8.2* 7.8* 8.4* HCT 24.9* 24.7* 24.5* 25.9* PLT 54* 55* 68* 97* MCV 96 96 97 96 MCH 31.3* 31.8* 31.0 31.2* MCHC 32.5 33.2 31.8 32.4 RDW 14.3 14.0 13.2 12.6 BASOABS -- 0.00 -- -- Recent Labs 09/11/24 1115 09/12/24 0019 09/12/24 0019 09/13/24 0027 09/13/24 1420 09/14/24 0011 BUN 59* 48* -- 35* 35* 39* CREAT 1.1 1.0 -- 0.8 0.8 0.8 NA 156* 153* -- 145 144 146* K 4.7 4.7 -- 5.4* 4.7 5.6* CO2 29 31 -- 31 32 32 CL 120* 118* -- 112* 107 110* MG -- 3.0* -- 2.7 2.5 2.4 PHOS -- 2.8 < > 3.2 3.8 3.3 AST -- 109* -- -- -- 38 ALT -- 152* -- -- -- 94* PROT -- 7.6 -- -- -- 7.2 < > = values in this interval not displayed. No results for input(s): PT , PTT , INR in the last 72 hours. Medications Medication/MAR Report: Medications Scheduled Medication Ordered Dose/Rate, Route, Frequency Last Action chlorhexidine (PERIDEX) 0.12 % oral solution 15 mL 15 mL, MT, BID Given, 15 mL at 09/14 2047 chlorhexidine gluconate 2 % wipes - urethral catheter CHG application No Dose/Rate, TOP, Daily Ordered heparin (porcine) 5000 unit/mL injection 5,000 Units 5,000 Units, SC, Q8H ZO Given, 5,000 Units at 09/14 0500 insulin lispro (HumaLOG/ADMELOG) 100 units/mL injection 3-11 Units 3-11 Units, SC, Q4H ZO Given, 4 Units at 09/14 0350 meropenem (MERREM) 1 g in sodium chloride-MBP (NS) 100 mL IVPB-MBP 1 g, IV, Q8H New Bag, 1 g at 09/14 0016 methylPREDNISolone sodium succinate (SOLU-Medrol) injection 40 mg 40 mg, IV, Q8H ZO Given, 40 mg at 09/14 050 metoPROLOL TARTRATE (LOPRESSOR) tablet 50 mg 50 mg, FT, Q12H ZO Given, 50 mg at 09/13 2046 naloxegol (MOVANTIK) tablet 25 mg 25 mg, FT, Daily before breakfast Given, 25 mg at 09/13 817 nicotine (NICODERM CQ) 21 MG/24HR patch 1 patch 1 patch, TD, Daily Patch Applied, 1 patch at 09/14 819 polyethylene glycol (miraLAx) packet 17 g 17 g, FT, BID Given, 17 g at 09/13 2044 protein supplement feeding tube flush (PROSOURCE TF) 3 oz 3 oz, FT, BID Given, 3 oz at 09/13 2048 QUEtiapine (SEROquel) tablet 100 mg 100 mg, FT, Nightly Given, 100 mg at 09/13 2044 QUEtiapine (SEROquel) tablet 50 mg 50 mg, FT, BID Given, 50 mg at 09/13 1428 senna-docusate (SENNA-S) 8.6-50 MG tablet 2 tablet 2 tablet, FT, BID Given, 2 tablet at 09/13 2044 Continuous Medication Ordered Dose/Rate, Route, Frequency Last Action HYDROmorphone (DILAUDID) IV infusion 50 mg in 50 mL NS (1 mg/mL) (premix) 2 mg/hr, IV, Continuous Rate/Dose Verify, 2 mg/hr at 09/14 07 ketamine 1000 mg in 100 mL NS infusion (10 mg/mL) (premix) 10 mcg/kg/min, IV, Continuous Rate/Dose Verify, 10 mcg/kg/min at 09/14 07 PRN Medication Ordered Dose/Rate, Route, Frequency Last Action acetaminophen (TYLENOL) 160 mg/5 mL solution 650 mg 650 mg, FT, Q6H PRN Given, 650 mg at 09/14 0603 bisacodyl (DULCOLAX) suppository 10 mg 10 mg, RE, Daily PRN Ordered dextrose 50 % solution 12.5 g (Or Linked Group #1) 12.5 g, IV, Q15 Min PRN Ordered dextrose 50 % solution 25 g (Or Linked Group #1) 25 g, IV, Q15 Min PRN Ordered glucagon (GLUCAGEN) injection 1 mg (Or Linked Group #1) 1 mg, IM, Daily PRN Ordered glucose (GLUTOSE 15) 40 % oral gel 37.5 g (Or Linked Group #1) 1 Tube, PO, Q15 Min PRN Ordered glucose (GLUTOSE 15) 40 % oral gel 75 g (Or Linked Group #1) 2 Tube, PO, Q15 Min PRN Ordered haloperidol lactate (HALDOL) 5 mg/mL injection 5 mg 5 mg, IV, Q2H PRN Given, 5 mg at 09/12 2257 HYDROmorphone (DILAUDID) 2 mg/mL injection 2 mg 2 mg, IV, Q2H PRN Given, 2 mg at 09/13 1428 lactulose (ENULOSE) 10 gm/15 mL solution 20 g 30 mL, PER OG TUBE, Q4H PRN Ordered naloxone (NARCAN) 0.4 mg/mL injection 0.4 mg 0.4 mg, IV, Q5 Min PRN Ordered Sign: Shira Bonilla PA-C 09/14/2024 7:11 AM * Kelly Rodriguez MD - 09/14/2024 7:06 AM EDT Images from the original note were not included. Division of Pulmonary, Critical Care, and Sleep Medicine [address] [facility], [address], [place] [address] Critical Care Note Assessment 63 y.o. male with hx of Etoh use admitted on 09/07/2024 for eye swelling (admitted to OS on 09/06/24). Course c/b thrombocytopenia, sepsis, respiratory failure - tx to on 09/07/24. Intubated on 09/08/24. Active Problems: Acute metabolic encephalopathy Cavernous sinus thrombosis Acute hypoxic respiratory failure Diffuse alveolar hemorrhage (unclear etiology) R otitis media Pulmonary edema Volume overload Hypoalbuminemia Thrombocytopenia Sepsis SIRS ARDS Lactic acidosis SVT Shock Hypotension Leukocytosis CLINT Comorbid Conditions: Active Nicotine Dependence Total LOS: 7 days Overnight Lokelma given Free water flushes given Plan by System I performed rounds on the medical unit with the entire critical care team and we discussed the events below while developing the daily treatment plan: Neuro: CAM-ICU Delirium Present: Positive Dwyer Agitation Sedation Scale (RASS) / Modified RASS: -2-->Wakes slowly, very drowsy/light sedation Ketamine started due to high TG with Prop Intermittent agitation (not following commands) Moves all ext Dilaudid at 2mg/hr Clonazepam 0.25mg Ketamine at 30 Seroquel 25//50 Add Haldol 5mg Q2 MRI read reviewed Can not get AC for thrombosis 2/2 low plt Neuro IR w no intervention L eye is extremely swollen Not likely to recover site per optho in that eye Ascetic acid to ear Resp: Ventilator Start 09/08/24 0935 (Active) Number of days: 6 Ventilation Mode (Drager V500): PC-AC Rate Set (breaths/min) (Drager V500): 12 Pressure Set (cmH2O): 18 Oxygen Concentration (%) (Drager V500): 40 PEEP (cmH2O) (Drager V500): 6 Tolerating long stretches of low level PSV but mental status precludes extubation Bronch c/w DAH Vasculitis studies pending; these are send out labs so unknown when these will return Could have been extremely low platelets with high wedge in setting of polyvalvular disease that drove DH Remains on Methylprednisolone 250mg Q6 CV: Lopressor 25mg bid to start Severe stenosis + Mitral stenosis Cardiology consult following no new recs Hemoptysis may have been the result of high wedge with capillary blood loss in setting of low platelets if not from vasculitis (either seems equally probable at this point) >Echo: TTE 09/11/2024 Left ventricular systolic function is hyperdynamic. The quantitative EF by 2D Stark biplane is 80%. Right ventricular systolic function is normal. There is likely severe aortic stenosis based on gradients and velocities. The continuity derived aortic valve area is less reliable in the setting of poor spectral signal. The peak velocity is 4.3 m/s and mean gradient is 45.7 mmHg. There is progressive calcific mitral stenosis. There is a mean transmitral gradient of 5 mmHg at a heart rate of 81 bpm. There is no previous study for comparison in our system. GI: Lactic acid normalized Bilirubin remains slightly elevated but decreasing Movantik has improved stool output >Nutrition: Diet/Nutrition Received: NPO, tube feeding Diet, Tube Feeding, No Tray Continuous; OG Tube; Osmolite 1.5; 20 mL; 65 mL/hr; x23 hrs (hold 1 hour before movantik administration); Water; Every 4 hours; 100; NPO Renal: Early for urinary retention K+ elevated overnight s/p dose lokelma No stool since Repeat K+ and lytes at 12 hour avery to recheck >Intake & Output Intake/Output Summary (Last 24 hours) at 09/14/2024 0706 Last data filed at 09/14/2024 0700 Gross per 24 hour Intake 3155.59 ml Output 3505 ml Net -349.41 ml I/O last 3 completed shifts: In: 6134.6 [P.O.:90; I.V.:1239.6; NG/GT:4055; IV Piggyback:750] Out: 5180 [Urine:5180] Endo: MRAY Heme/Onc: Anemia and thrombocytopenia Rec'd IVIG (s/p 5 days completed 09/11) 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 Michaud who is following >Antibiotics: Anti-infectives (From admission, onward) Start Dose/Rate Route Frequency Ordered Stop 09/08/24 1700 meropenem (MERREM) 1 g in sodium chloride-MBP (NS) 100 mL IVPB-MBP 1 g 33.3 mL/hr over 3 Hours Intravenous Every 8 hours 09/08/24 1640 >Recent Cultures: Culture Date Value Ref Range Status 09/08/2024 Negative after 2 days Final 09/08/2024 Preliminary No fungi isolated. Culture will be held for two weeks. 09/08/2024 Negative after 5 days Preliminary ICU Checklist Drips: HYDROmorphone, 2 mg/hr, Last Rate: 2 mg/hr (09/14/24 0700) ketamine, 10 mcg/kg/min, Last Rate: 10 mcg/kg/min (09/14/24 0700) Lines: Peripheral IV - Single Lumen (Adult) 09/07/24 2200 median vein (underside of arm), right 20 gauge (Active) Number of days: 7 Peripheral IV - Single Lumen (Adult) 09/12/24 0338 cephalic vein (lateral side of arm), left 22 gauge;1 in length;3/4 in length (Active) Number of days: 2 Restraints: Restraint Type: Unlocked Unlocked Bilateral Wrist (NV): continued Unlocked Bilateral Ankle (NV): continued Behaviors Observed: pulling at lines/tubes, agitated upon awakening Mobility: Progressive Mobility Level Achieved: Level 0 Early: Urethral Catheter (Adult) 09/13/24 0038 10 mL balloon inflation volume (Active) Number of days: 1 GI Prophylaxis (if needed): None VTE Time Out IMPROVE SCORE: 2 (09/07/2024 5:40 PM) Interpretation - High Risk Chemical Prophylaxis heparin (porcine) 5000 unit/mL injection 5,000 Units Subcutaneous Every 8 hours scheduled Chemical VTE prophylaxis NOT ordered. Click here to order if appropriate Chemical Prophylaxis Contraindication: None - I will place appropriate order Heparin Sodium (Porcine) 5000 Units Last dose 09/14/2024 5:00 AM Mechanical Prophylaxis SCDs are ordered - Bilateral (Knee High) Code Status and Disposition CODE STATUS: Full DISPOSITION: ICU I spent 31 minutes of Critical Care time in multiple visits throughout the day for collaboration/coordination of care exclusive of time spent performing separately billable medical procedures. I affirm that this patient is critically ill and at high risk for sudden, fatal deterioration due to one or more of the above active issues. I managed/supervised life- or organ-supporting interventions that require frequent physician assessment and reassessment. Critical care time was spent, but not limited to, the review of laboratory test results, medications, relevant radiology and discussing this critically ill patient's care with other medical staff in the unit or at the nursing station onthe floor where the patient is located. My full attention was given to the management of this patient and I was immediately available during this same time. Objective SpO2:98 %,O2 Device: ventilator, , Oxygen Concentration (%): 40 Oxygen Concentration (%) (Drager V500): 40 Temp Last 24 hrs: Temp Min: 100 ??F (37.8 ??C) Max: 102 ??F (38.9 ??C) WBC Trend White Blood Cell Count Date Value Ref Range Status 09/14/2024 10.2 4.0 - 11.0 Thou/uL Final 09/13/2024 7.9 4.0 - 11.0 Thou/uL Final 09/12/2024 6.0 4.0 - 11.0 Thou/uL Final 09/11/2024 5.7 4.0 - 11.0 Thou/uL Final Last Vitals: Pulse:86, Resp:14, BP:BP Min: 120/56 Max: 144/84 MAP: 86 mm Hg Physical Exam: General: Intermittent agitation; ETT in place; L eye extremely swollen PIV x 2 OG tube Early cath HEENT: supple without LAD Lungs: clear to auscultation bilaterally Heart: regular rate and rhythm, S1, S2 normal, no murmur, click, rub or gallop Abdomen: soft, non-tender; bowel sounds normal; no masses, no organomegaly Extremities: atraumatic, no cyanosis or edema Neuro: Moves extremities I reviewed the prescribed Medications and new Laboratory Blood Work I reviewed all new Imaging Studies (actual images) and compared to prior where applicable Sign: Kelly Rodriguez MD 09/14/2024 7:06 AM * Pierre Michaud MD - 09/13/2024 12:53 PM EDT [facility] Progress Note Assessment & Plan Assessment Alcohol use disorder in remission for 15 years Tobacco use disorder with a [id number] history Presenting with altered mental status, left eye swelling, tongue swelling and severe right ear pain MRIs were done and the patient was sent down here It looks like he has a cavernous sinus thrombosis. 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 Bronchoscopy was done 417 culture of his ear is growing yeast and Bordetella trematum He remains on the ventilator He is heavily sedated Repeat MRI was done but has not been read Plan Continue meropenem Subjective Unresponsive on the ventilator Objective Last Vitals Pulse:82,Resp:20,BP:(!) 140/69,SpO2:98 %,Weight:96.8 kg (213 lb 6.5 oz) Temp Last 24 hrs: Temp Min: 99.7 ??F (37.6 ??C) Max: 102 ??F (38.9 ??C) Last temp: (!) 100.4 ??F (38 ??C) (Esophageal) Physical Exam Lungs: Clear Cardiac: RRR Abdomen: +BS Soft Nontender Skin:No rash Left thigh remains the same Anti-infectives (From admission, onward) Start Dose/Rate Route Frequency Ordered Stop 09/08/24 1700 meropenem (MERREM) 1 g in sodium chloride-MBP (NS) 100 mL IVPB-MBP 1 g 33.3 mL/hr over 3 Hours Intravenous Every 8 hours 09/08/24 1640 Intake/Output Summary (Last 24 hours) at 09/13/2024 1253 Last data filed at 09/13/2024 1200 Gross per 24 hour Intake 5506.58 ml Output 3910 ml Net 1596.58 ml Relevant data reviewed MEDICATIONS Current Facility-Administered Medications Medication Dose Route Frequency Provider Last Rate Last Admin acetaminophen (TYLENOL) 160 mg/5 mL solution 650 mg 650 mg Feeding Tube Q6H PRN Marie Chamberlain PA-C 650 mg at 09/13/24 1032 bisacodyl (DULCOLAX) suppository 10 mg 10 mg Rectal Daily PRN Marie Chamberlain PA-C chlorhexidine (PERIDEX) 0.12 % oral solution 15 mL 15 mL Mouth/Throat BID Korina Lai PA-C 15 mL at 09/13/24 0819 clonazePAM (KlonoPIN) disintegrating tablet 0.25 mg 0.25 mg Feeding Tube Q12H [facility] K[facility] Modi glucose (GLUTOSE 15) 40 % oral gel 37.5 g 1 Tube Oral Q15 Min PRN KRISTA Hobbs Or glucose (GLUTOSE 15) 40 % oral gel 75 g 2 Tube Oral Q15 Min PRN KRISTA Hobbs Or dextrose 50 % solution 12.5 g 12.5 g Intravenous Q15 Min PRN KRISTA Hobbs Or dextrose 50 % solution 25 g 25 g Intravenous Q15 Min PRN KRISTA Hobbs Or glucagon (GLUCAGEN) injection 1 mg 1 mg Intramuscular Daily PRN KRISTA Hobbs haloperidol lactate (HALDOL) 5 mg/mL injection 5 mg 5 mg Intravenous Q2H PRN Britton Rodriguez PA-C 5 mg at 09/12/24 2257 heparin (porcine) 5000 unit/mL injection 5,000 Units 5,000 Units Subcutaneous Q8H [facility] Britton Rodriguez PA-C 5,000 Units at 09/13/24 0508 HYDROmorphone (DILAUDID) 2 mg/mL injection 2 mg 2 mg Intravenous Q2H PRN Marie Chamberlain PA-C 2 mg at 09/13/24 0555 HYDROmorphone (DILAUDID) IV infusion 50 mg in 50 mL NS (1 mg/mL) (premix) 2 mg/hr Intravenous Continuous Nanci Guerra PA-C 2 mL/hr at 09/13/24 1200 2 mg/hr at 09/13/24 1200 insulin lispro (HumaLOG/ADMELOG) 100 units/mL injection 3-11 Units 3-11 Units Subcutaneous Q4H [facility] Hobbs 3 Units at 09/13/24 1200 ketamine 1000 mg in 100 mL NS infusion (10 mg/mL) (premix) 20 mcg/kg/min Intravenous Continuous KRISTA Modi 11.7 mL/hr at 09/13/24 1200 20 mcg/kg/min at 09/13/24 1200 lactulose (ENULOSE) 10 gm/15 mL solution 20 g 30 mL OG Tube Q4H PRN Marie Chamberlain PA-C meropenem (MERREM) 1 g in sodium chloride-MBP (NS) 100 mL IVPB-MBP 1 g Intravenous Q8H Marie Chamberlain PA-C 33.3 mL/hr at 09/13/24 0818 1 g at 09/13/24 0818 methylPREDNISolone sodium succinate (SOLU-Medrol) injection 40 mg 40 mg Intravenous Q8H [facility] Jones 40 mg at 09/13/24 0508 metoPROLOL TARTRATE (LOPRESSOR) tablet 50 mg 50 mg Feeding Tube Q12H [facility] Modi naloxegol (MOVANTIK) tablet 25 mg 25 mg Feeding Tube Daily before breakfast ROQUE NagyC 25 mg at 09/13/24 0818 naloxone (NARCAN) 0.4 mg/mL injection 0.4 mg 0.4 mg Intravenous Q5 Min PRN ROQUE NagyC nicotine (NICODERM CQ) 21 MG/24HR patch 1 patch 1 patch Transdermal Daily KRISTA Bedolla 1patch at 09/13/24 0820 polyethylene glycol (miraLAx) packet 17 g 17 g Feeding Tube BID ROQUE NagyC 17 g at 09/13/24 0818 QUEtiapine (SEROquel) tablet 100 mg 100 mg Feeding Tube Nightly Daiana Guzman PA-C QUEtiapine (SEROquel) tablet 50 mg 50 mg Feeding Tube BID KRISTA Modi senna-docusate (SENNA-S) 8.6-50 MG tablet 2 tablet 2 tablet Feeding Tube BID ROQUE NagyC2 tablet at 09/13/24 0818 Notable labs are: Lab Results Component Value Date WBC 7.9 09/13/2024 HGB 7.8 (L) 09/13/2024 HCT 24.5 (L) 09/13/2024 PLT 68 (L) 09/13/2024 Lab Results Component Value Date AST 109 (H) 09/12/2024 ALT 152 (H) 09/12/2024 ALKPHOS 56 09/12/2024 BILITOT 4.5 (H) 09/12/2024 BILIDIR 3.4 (H) 09/12/2024 ALBUMIN 2.5 (L) 09/12/2024 PROT 7.6 09/12/2024 Lab Results Component Value Date CREAT 0.8 09/13/2024 Blood Cultures: Lab Results Component Value Date CULTURE Negative after 2 days 09/08/2024 CULTURE 09/08/2024 No fungi isolated. Culture will be held for two weeks. CULTURE Negative after 5 days 09/08/2024 Urine Cultures: No results found for: CRYSUA , HYALNCSTUA , UROBILINOGEN , BILIUA , BLOODUA , CLARITYUA , COLORUA , UACOMMENT , GLUCU , KETONESUA , LEUKOCYTESUA , NITRITEUA , PHUA , PROTEINUA , RBCUA , SPECIMEN , SPECGRAVUA , SQEPIUA , WBCUA No components found for: WOUND C. Difficile: No results found for: CDIFFTOX , NAP1 Sign Pierre Michaud MD 09/13/2024 12:53 PM Pierre Michaud * Daniel Michaels MD - 09/13/2024 8:09 AM EDT Images from the original note were not included. Division of Pulmonary, Critical Care, and Sleep Medicine [address] [facility], [address] [address] Critical Care Note Assessment 63 y.o. male with hx of Etoh use admitted on 09/07/2024 for eye swelling (admitted to OSH on 09/06/24). Course c/b thrombocytopenia, sepsis, respiratory failure - tx to HH on 09/07/24. Intubated on 09/08/24. Active Problems: Acute metabolic encephalopathy Cavernous sinus thrombosis Acute hypoxic respiratory failure Diffuse alveolar hemorrhage (unclear etiology) R otitis media Pulmonary edema Volume overload Hypoalbuminemia Thrombocytopenia Sepsis SIRS ARDS Lactic acidosis SVT Shock Hypotension Leukocytosis CLINT Comorbid Conditions: Active Nicotine Dependence Total LOS: 6 days Overnight MRI brain read P from overnight Plan by System I performed rounds on the medical unit with the entire critical care team and we discussed the events below while developing the daily treatment plan: Neuro: CAM-ICU Delirium Present: Positive Dwyer Agitation Sedation Scale (RASS) / Modified RASS: +1-->restless Ketamine started due to high TG with Prop Intermittent agitation (not following commands) Moves all ext Dilaudid at 2mg/hr Clonazepam 0.25mg Ketamine at 30 Seroquel Add Haldol 5mg Q2 Repeat Head CT completed with read pending re cavernous sinus thrombosis surveillance MRI read pending from overnight Can not get AC for thrombosis 2/2 low plt Neuro IR w no intervention Resp: Ventilator Start 09/08/24 0935 (Active) Number of days: 5 Ventilation Mode (Drager V500): PC-AC Rate Set (breaths/min) (Drager V500): 14 Pressure Set (cmH2O): 20 Oxygen Concentration (%) (Drager V500): 40 PEEP (cmH2O) (Drager V500): 6 Down to PSV Bronch c/w DAH Vasculitis studies pending; these are send out labs so unknown when these will return Remains on Methylprednisolone 250mg Q6 CV: Lopressor 25mg bid to start Severe stenosis + Mitral stenosis Cardiology consult following no new recs Hemoptysis may have been the result of high wedge with capillary blood loss in setting of low platelets if not from vasculitis (either seems equally probable at this point) >Echo: TTE 09/11/2024 Left ventricular systolic function is hyperdynamic. The quantitative EF by 2D Stark biplane is 80%. Right ventricular systolic function is normal. There is likely severe aortic stenosis based on gradients and velocities. The continuity derived aortic valve area is less reliable in the setting of poor spectral signal. The peak velocity is 4.3 m/s and mean gradient is 45.7 mmHg. There is progressive calcific mitral stenosis. There is a mean transmitral gradient of 5 mmHg at a heart rate of 81 bpm. There is no previous study for comparison in our system. GI: Lactic acid normalized Bilirubin remains slightly elevated Movantik has improved stool output >Nutrition: Diet/Nutrition Received: NPO, tube feeding Diet, Tube Feeding, No Tray Continuous; OG Tube; Osmolite 1.5; 20 mL; 60 mL/hr; Water; Every 4 hours; 200; NPO Renal: Early for urinary retention CLINT improving to Cr 0.8 Na 145 >Intake & Output Intake/Output Summary (Last 24 hours) at 09/13/2024 0809 Last data filed at 09/13/2024 0700 Gross per 24 hour Intake 5583.51 ml Output 2860 ml Net 2723.51 ml I/O last 3 completed shifts: In: 9144.1 [I.V.:2524.1; NG/GT:5620; IV Piggyback:1000] Out: 4460 [Urine:4460] Endo: MARY Heme/Onc: Anemia and thrombocytopenia Platelets Hb 7.8 from 8.2 Plt 68 from 55 Rec'd IVIG (s/p 5 days completed 09/11) 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 Michaud following to guide abx Repeat MRI brain read P from overnight >Antibiotics: Anti-infectives (From admission, onward) Start Dose/Rate Route Frequency Ordered Stop 09/08/24 1700 meropenem (MERREM) 1 g in sodium chloride-MBP (NS) 100 mL IVPB-MBP 1 g 33.3 mL/hr over 3 Hours Intravenous Every 8 hours 09/08/24 1640 >Recent Cultures: Culture Date Value Ref Range Status 09/08/2024 Negative after 2 days Final 09/08/2024 Preliminary No fungi isolated. Culture will be held for two weeks. 09/08/2024 Negative after 4 days Preliminary ICU Checklist Drips: dextrose, 50 mL/hr, Last Rate: 50 mL/hr (09/13/24 0700) HYDROmorphone, 2 mg/hr, Last Rate: 2 mg/hr (09/13/24 0700) ketamine, 30 mcg/kg/min, Last Rate: 30 mcg/kg/min (09/13/24 0700) Lines: Peripheral IV - Single Lumen (Adult) 09/07/24 2200 median vein (underside of arm), right 20 gauge (Active) Number of days: 6 Peripheral IV - Single Lumen (Adult) 09/12/24 0338 cephalic vein (lateral side of arm), left 22 gauge;1 in length;3/4 in length (Active) Number of days: 1 Restraints: Restraint Type: Unlocked Unlocked Bilateral Wrist (NV): continued Unlocked Bilateral Ankle (NV): continued Behaviors Observed: agitated/restless, agitated upon awakening Mobility: Progressive Mobility Level Achieved: Level 0 Early: Urethral Catheter (Adult) 09/13/24 0038 10 mL balloon inflation volume (Active) Number of days: 0 GI Prophylaxis (if needed): None VTE Time Out IMPROVE SCORE: 2 (09/07/2024 5:40 PM) Interpretation - High Risk Chemical Prophylaxis heparin (porcine) 5000 unit/mL injection 5,000 Units Subcutaneous Every 8 hours scheduled Chemical VTE prophylaxis NOT ordered. Click here to order if appropriate Chemical Prophylaxis Contraindication: None - I will place appropriate order Heparin Sodium (Porcine) 5000 Units Last dose 09/13/2024 5:08 AM Mechanical Prophylaxis SCDs are ordered - Bilateral (Knee High) Code Status and Disposition CODE STATUS: Full DISPOSITION: ICU I spent 31 minutes of Critical Care time in multiple visits throughout the day for collaboration/coordination of care exclusive of time spent performing separately billable medical procedures. I affirm that this patient is critically ill and at high risk for sudden, fatal deterioration due to one or more of the above active issues. I managed/supervised life- or organ-supporting interventions that require frequent physician assessment and reassessment. Critical care time was spent, but not limited to, the review of laboratory test results, medications, relevant radiology and discussing this critically ill patient's care with other medical staff in the unit or at the nursing station [facility] floor where the patient is located. My full attention was given to the management of this patient and I was immediately available during this same time. Objective SpO2:94 %,O2 Device: ventilator, , Oxygen Concentration (%): 40 Oxygen Concentration (%) (Drager V500): 40 Temp Last 24 hrs: Temp Min: 99.7 ??F (37.6 ??C) Max: 102 ??F (38.9 ??C) WBC Trend White Blood Cell Count Date Value Ref Range Status 09/13/2024 7.9 4.0 - 11.0 Thou/uL Final 09/12/2024 6.0 4.0 - 11.0 Thou/uL Final 09/11/2024 5.7 4.0 - 11.0 Thou/uL Final 09/11/2024 4.8 4.0 - 11.0 Thou/uL Final Last Vitals: Pulse:(!) 104, Resp:17, BP:BP Min: 95/50 Max: 174/83 MAP: 86 mm Hg Physical Exam: General: Intermittent agitation; ETT in place PIV x 2 OG tube Early cath HEENT: supple without LAD Lungs: clear to auscultation bilaterally Heart: regular rate and rhythm, S1, S2 normal, no murmur, click, rub or gallop Abdomen: soft, non-tender; bowel sounds normal; no masses, no organomegaly Extremities: atraumatic, no cyanosis or edema Neuro: Moves extremities I reviewed the prescribed Medications and new Laboratory Blood Work I reviewed all new Imaging Studies (actual images) and compared to prior where applicable Sign: Daniel Michaels MD 09/13/2024 8:09 AM * Daiana Guzman PA-C - 09/13/2024 7:22 AM EDT Critical Care Progress Note Subjective Overnight events: - Repeat MRI brain overnight, read pending Assessment & Plan Assessment: Mariah Masterson is a 63 year old male with PMHx of depression, alcohol abuse, tobacco use who presented to OSH for concern of left eye swelling, tongue swelling, right ear pain, and decreased visual acuity of left eye. He was ultimately transferred to for ENT, ophthalmology, ID, neuro consults. He was admitted for further management of cavernous sinus thrombosis with course complicated by worsening hypoxia with concern for diffuse alveolar hemorrhage in the setting of ARDS. Principal Problem: Acute cerebral venous sinus thrombosis LOS: 6 days Plan by system Neuro: AMS, agitation, cavernous sinus thrombosis, Hx depression, tobacco use, ETOH use (in remission 15 years) - Mental status: intermittently agitated at times, moving all extremities spontaneously, not following commands - Dilaudid gtt @ 2mg/hr dilaudid 2mg PRN (x3 overnight) - Wean ketamine gtt to 20 mcg/kg/min - Decrease klonopin 0.25mg to q12h scheduled - Continue haldol 5mg q2h PRN (x0 ON) - Increase seroquel to 50 mg TID, Qtc 471 - tylenol 650mg q6h PRN for fevers - Continue with nicotine patch - active smoker - Holding home paroxetine 40mg daily and risperidone 0.5 BID - repeat CT head w/o contrast for AMS on 09/08; no acute infarct or hemorrhage - CTA head and neck ordered (09/12) per neuro for stability scan of cavernous sinus thrombosis; readpending - Repeat MRI brain read pending - neuro consulted for cavernous sinus thrombosis; continue with IV abx; anticoagulation typically mainstay of treatment but cannot be started secondary to thrombocytopenia - SW consulted for help with HCR (daughter next of kin but estranged 30 years; mom and sister in chart) - patient had CT head, brain MRI and head/brain venography at OSH; significant findings as below - Neuro reviewed with IR - no thrombosis seen on MRV per neuro IR - s/p propofol, precedex (stopped d/t fevers) CT Head 09/08: 1. No CT evidence of acute territorial infarction or acute intracanal hemorrhage. Limited evaluation of the brainstem. Please note, CT is not sensitive to take small acute ischemic infarct. MR of the brain without contrast is recommended for further assessment. 2. Mild to moderate chronic white matter small as ischemic changes. CT Head at OSH CT head with abnormal findings in the right mastoid air cells, middle and external ear. Favor otitis media, externa with soft tissue asp status and mastoiditis. MRV at OSH with normal flow related enhancement in the major cortical and dural venous sinuses. MRI Brain (at OSH): 1. Abnormalities of the left orbit including mild enlargement of the extraocular muscles, mild edema throughout the intra and extra conal fat, loss of the normal flow-void of the superior ophthalmic vein, mild enlargement of the left superior ophthalmic vein, minimal left lobe proptosis and left preseptal soft tissue edema. There may be thrombosis of the left superior ophthalmic vein. These findings all highly suggest left cavernous sinus thrombosis. 2. Right mastoid tympanic space effusion andcerumen impaction in the right external auditory canal. 3. Edema and swelling throughout the right temporalis muscle and involving the right > left muscles of mastication of uncertain etiology, direct extension of right mastoiditis is a consideration as is right cavernous sinus thrombosis. 4. High signal within the right sphenoid parietal sinus is also present suggesting thrombosis. ENT: Left eye swelling (improving), right sided otitis externa and media - CT IAC with contrast - read pending - Continue on acetic acid for ear culture growing yeast - Patient with improvement in left eye swelling - Ophthalmology consulted, given no light perception in left eye, poor visual prognosis; no acute interventions recommended to help with left eye vision - No evidence of right eye involvement - Per ophtho, left vision loss maybe likely to thrombosis disrupting blood-flow or involvement of the orbital apex or posterior ischemic optic neuropathy given unremarkable fundus exam, normal IOP (22) and non-edematous optic nerve - Pt stated he has hx of chronic right ear pain and will often instill hydrogen peroxide and clean out ear with qtip - ENT consulted, no surgical intervention at this time, keep ear wick in place - No clinical evidence of mastoiditis -s/p ciprodex drops for ear infection Behavioral/Sedation scales CAM-ICU Delirium Present: Positive Dwyer Agitation Sedation Scale (RASS) / Modified RASS: +1-->restless Resp: Hypoxia with concern for diffuse alveolar hemorrhage in the setting of ARDS (improving) - SpO2 94% on PC 20//40% +6 - intubated on 09/08 - bronchoscopy on 09/08; findings consistent with DAH; cultures negative to date - labs pending for DAH workup (anti-GBM, lupus w/ reflex, RF, CCP Ab, dsDNA, complement C3, C4, ANCA, myeloperoxidase Ab, proteinase-3 Ab) - Tolerated PS/CPAP 10/26 40% x 11 hrs yesterday, will continue today - VBG (09/09) 7.29/52 - ABG (09/08) - 7.3/50/229 - mixed venous (09/09) 86.1 (83.5) - proBNP (09/08): 3,773 (5786) - Continue solu-medrol 40mg q8h; s/p 3 days of pulse dose steroids (1g/day) - CT Thorax read pending CXR 09/08: Mild interval improvement in bilateral airspace opacities. CXR(09/07) 1. Markedly worsened diffuse bilateral interstitial and airspace opacification involving the entire lungs bilaterally. 2. Heart and mediastinum are widened, this is exaggerated by AP technique and unchanged. Vent Mode: PC-AC Rate set: 14 Tidal volume: Insp Pressure: 20 FIO2: 40 PEEP: 6 CV: non- sustained VT, hypertension - SBP 90s - 180s HR 70s-110s - HS trop (09/07): 22 - ProBNP 09/08: 3K (5K), trend - ECG 09/11 NSR RBBB QTC 471 - ECHO with hyperdynamic L ventricular systolic function EF 80%; severe aortic stenosis, consulted cardiology for - Continue to spot diurese for goal net negative; will give 40mg IV Lasix x 1 - Increase lopressor to 50 BID 25mg BID for hypertension ECHO 09/11/24: Left ventricular systolic function is hyperdynamic. The quantitative EF by 2D Stark biplane is 80%. Right ventricular systolic function is normal. There is likely severe aortic stenosis based on gradients and velocities. The continuity derived aortic valve area is less reliable in the setting of poor spectral signal. The peak velocity is 4.3 m/s and mean gradient is 45.7 mmHg. There is progressive calcific mitral stenosis. There is a mean transmitral gradient of 5 mmHg at a heart rate of 81 bpm. There is no previous study for comparison in our system. ECHO at OSH - Hyperdynamic LVEF greater than 70% with impaired relaxation filling pattern. At least moderately dilated left atrium. Calcified aortic valve changes noted with mean gradient of 32 mmHg with a calculated valve area in mild stenosis range suggestive of overall probably increase flow through the aortic valve due to higher stroke volume. Calcific mitral valve changes noted with possible mild mitral stenosis. Mildly dilated ascending aorta 3.7cm. No gross pericardial effusion. GI: Transaminitis, Resolved Lactic acidosis - Diet: TF via OGT - Lactic acid (09/07): 1.9 (5.1 at OSH) - LFTs: Tbili 4.5 (3.2) Dbili 3.4 (2.4) AST/ALT 109/152 (48/20) alk phos 56 (66), trend - CT A/P at OSH with hepatosplenomegaly, distended gallbladder, thickening of the adrenal glands, bilateral perinephric stranding, distended stomach with air- fluid level. - 2 BM/24hrs, continue Bowel Reg w/ movantik Renal: CLINT (improving), hyperkalemia - BUN/Cr 35/0.8 (48/1.0) - Na 145 (153) - on FWF 200q4h - K 5.4 (4.7) - early placed for retention/CLINT - UOP 2.9L / 24hrs; net +3.1L / 24hrs +7L / LOS - Stop D5W - Recheck PM lytes - Consider lokelma if K+ remains elevated after diuresis - received fluids (sepsis bolus) and albumin at OSH Early: yes - remove for voiding trial Early indication: Urinary Retention Intake & Output Intake/Output Summary (Last 24 hours) at 09/13/2024 0722 Last data filed at 09/13/2024 0700 Gross per 24 hour Intake 6083.01 ml Output 2960 ml Net 3123.01 ml Endo: No active issues - BG 100s-150s - check FS q4h while on TF - Continue SUZE - hypoglycemia protocol - TSH 0.80 Heme/Onc: Anemia, Thrombocytopenia - H/H 7.8/24.5 (8.2/24.7) - Plt 68 (55) - s/p 3 plt, s/p 2 plt at OSH - Plt goal >20 or >30 with bleeding - PT 14.4 PTT 27 - INR 1.3 - fibrinogen 579 (550) - thrombin time 12.2 - Duplex LE and UE with no DVT - Heme Onc following - 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 Findings are not consistent with the presence of deep vein thrombosisbilaterally. ID: possible PNA, HEENT infection - Tmax 102.2, WBC 7.9 (6.0) - UA at OSH positive for nitrites and trace LE no bacteria - right ear culture pending at OSH - right ear culture (09/07) - yeast bordetella species - blood cx OSH - GNR - blood cultures (09/07) no growth to date - bronch cultures (09/08) no growth to date - MRSA swab (09/07) negative - urine strep presumptive positive - Dr. Michaud following - continue meropenem - fluvid negative - legionella prelim negative - PJP negative - s/p vanco, zosyn and ceftriaxone at OSH Vascular access: PIV IV access Mobility: Progressive Mobility Level Achieved: Level 0,PT/OT: Yes GI PPx: none DVT PPx: PAS and SC Heparin VTE Risk Assessment VTE Time Out IMPROVE SCORE: 2 (09/07/2024 5:40 PM) Interpretation - High Risk Chemical Prophylaxis heparin (porcine) 5000 unit/mL injection 5,000 Units Subcutaneous Every 8 hours scheduled Heparin Sodium (Porcine) 5000 Units Last dose 09/13/2024 5:08 AM Mechanical Prophylaxis SCDs are ordered - Bilateral (Knee High) Mechanical Prophylaxis Contraindication: None - I will order SCDs Drips: dextrose, 50 mL/hr, Last Rate: 50 mL/hr (09/13/24 0700) HYDROmorphone, 2 mg/hr, Last Rate: 2 mg/hr (09/13/24 0700) ketamine, 30 mcg/kg/min, Last Rate: 30 mcg/kg/min (09/13/24 0700) Lines: Peripheral IV - Single Lumen (Adult) 09/07/24 2200 median vein (underside of arm), right 20 gauge (Active) Number of days: 6 Peripheral IV - Single Lumen (Adult) 09/12/24 0338 cephalic vein (lateral side of arm), left 22 gauge;1 in length;3/4 in length (Active) Number of days: 1 Enteric Access and Early: Naso/Orogastric Tube (Adult) 09/08/24 1100 Hancock sump 18 Fr mouth, center (Active) Number of days: 5 Urethral Catheter (Adult) 09/13/24 0038 10 mL balloon inflation volume (Active) Number of days: 0 Restraints: soft wrists bilaterally Interference with medical treatment Code: FULL Dispo: ICU, per Dr. Michaels Objective Last Vitals: Pulse:(!) 104, Resp:17, BP:BP Min: 95/50 Max: 174/83 MAP: 86 mm Hg SpO2:94 % CVP: Temp Last 24 hrs: Temp Min: 99.7 ??F (37.6 ??C) Max: 102.2 ??F (39 ??C) Physical Exam: General appearance: adult male, laying in bed, sedated, calm HEENT: left eye with improvement in swelling, subconjunctival hemorrhage noted, no light perceptionor accomodation; no right eye involvement; R pupil reactive to light but sluggish Lungs: coarse and diminished lung sounds throughout bilaterally Heart: RRR, S1S2, no murmurs Abdomen: normal active bowel sounds, abdomen soft, non-tender non-distended Extremities: no edema to lower or upper extremities Neurologic: moving extremities spontaneously, not following commands, grimace to stimuli Labs: Recent Labs 09/10/24 1209 09/11/24 0010 09/11/24 1115 09/12/24 0019 09/13/24 0027 WBC 5.8 4.8 5.7 6.0 7.9 HGB 7.9* 7.3* 8.1* 8.2* 7.8* HCT 23.5* 21.9* 24.9* 24.7* 24.5* PLT 28* 48* 54* 55* 68* MCV 93 96 96 96 97 MCH 31.3* 32.0* 31.3* 31.8* 31.0 MCHC 33.6 33.3 32.5 33.2 31.8 RDW 14.6* 14.3 14.3 14.0 13.2 BASOABS -- -- -- 0.00 -- Recent Labs 09/10/24 1209 09/11/24 0010 09/11/24 1115 09/12/24 0019 09/13/24 0027 BUN 76* 67* 59* 48* 35* CREAT 1.2 1.1 1.1 1.0 0.8 NA 149* 149* 156* 153* 145 K 4.9 4.9 4.7 4.7 5.4* CO2 24 26 29 31 31 CL 118* 118* 120* 118* 112* MG 3.4* 3.3* -- 3.0* 2.7 PHOS 3.7 2.8 -- 2.8 3.2 AST -- -- -- 109* -- ALT -- -- -- 152* -- PROT -- -- -- 7.6 -- No results for input(s): PT , PTT , INR in the last 72 hours. Medications Medication/MAR Report: Medications Scheduled Medication Ordered Dose/Rate, Route, Frequency Last Action chlorhexidine (PERIDEX) 0.12 % oral solution 15 mL 15 mL, MT, BID Given, 15 mL at 09/12 2006 chlorhexidine gluconate 2 % wipes - urethral catheter CHG application No Dose/Rate, TOP, Daily Given, 1 each at 09/12 0851 clonazePAM (KlonoPIN) disintegrating tablet 0.25 mg 0.25 mg, FT, Q8H ZO Given, 0.25 mg at 09/13 0509 heparin (porcine) 5000 unit/mL injection 5,000 Units 5,000 Units, SC, Q8H ZO Given, 5,000 Units at 09/13 0508 hydrocortisone-acetic acid (VOSOL-HC) 1-2 % otic solution 4 drop 4 drop, RIGHT EAR, BID Given, 4 drop at 09/12 2005 insulin lispro (HumaLOG/ADMELOG) 100 units/mL injection 3-11 Units 3-11 Units, SC, Q4H ZO Given, 3 Units at 09/13 0409 meropenem (MERREM) 1 g in sodium chloride-MBP (NS) 100 mL IVPB-MBP 1 g, IV, Q8H New Bag, 1 g at 09/13 0126 methylPREDNISolone sodium succinate (SOLU-Medrol) injection 40 mg 40 mg, IV, Q8H ZO Given, 40 mg at 09/13 0508 metoPROLOL TARTRATE (LOPRESSOR) tablet 25 mg 25 mg, FT, Q12H ZO Given, 25 mg at 09/12 2005 naloxegol (MOVANTIK) tablet 25 mg 25 mg, FT, Daily before breakfast Ordered nicotine (NICODERM CQ) 21 MG/24HR patch 1 patch 1 patch, TD, Daily Patch Applied, 1 patch at 09/12 08 polyethylene glycol (miraLAx) packet 17 g 17 g, FT, BID Given, 17 g at 09/12 2005 QUEtiapine (SEROquel) tablet 25 mg 25 mg, FT, BID Given, 25 mg at 09/12 1420 QUEtiapine (SEROquel) tablet 50 mg 50 mg, FT, Nightly Given, 50 mg at 09/12 2005 senna-docusate (SENNA-S) 8.6-50 MG tablet 2 tablet 2 tablet, FT, BID Given, 2 tablet at 09/12 2005 Continuous Medication Ordered Dose/Rate, Route, Frequency Last Action dextrose 5 % (D5W) infusion 50 mL/hr, IV, Continuous Rate/Dose Verify, 50 mL/hr at 09/13 699 HYDROmorphone (DILAUDID) IV infusion 50 mg in 50 mL NS (1 mg/mL) (premix) 2 mg/hr, IV, Continuous Rate/Dose Verify, 2 mg/hr at 09/13 699 ketamine 1000 mg in 100 mL NS infusion (10 mg/mL) (premix) 30 mcg/kg/min, IV, Continuous Rate/Dose Verify, 30 mcg/kg/min at 09/13 699 PRN Medication Ordered Dose/Rate, Route, Frequency Last Action acetaminophen (TYLENOL) 160 mg/5 mL solution 650 mg 650 mg, FT, Q6H PRN Given, 650 mg at 09/12 2234 bisacodyl (DULCOLAX) suppository 10 mg 10 mg, RE, Daily PRN Ordered dextrose 50 % solution 12.5 g (Or Linked Group #1) 12.5 g, IV, Q15 Min PRN Ordered dextrose 50 % solution 25 g (Or Linked Group #1) 25 g, IV, Q15 Min PRN Ordered glucagon (GLUCAGEN) injection 1 mg (Or Linked Group #1) 1 mg, IM, Daily PRN Ordered glucose (GLUTOSE 15) 40 % oral gel 37.5 g (Or Linked Group #1) 1 Tube, PO, Q15 Min PRN Ordered glucose (GLUTOSE 15) 40 % oral gel 75 g (Or Linked Group #1) 2 Tube, PO, Q15 Min PRN Ordered haloperidol lactate (HALDOL) 5 mg/mL injection 5 mg 5 mg, IV, Q2H PRN Given, 5 mg at 09/12 2257 HYDROmorphone (DILAUDID) 2 mg/mL injection 2 mg 2 mg, IV, Q2H PRN Given, 2 mg at 09/13 0555 lactulose (ENULOSE) 10 gm/15 mL solution 20 g 30 mL, PER OG TUBE, Q4H PRN Ordered naloxone (NARCAN) 0.4 mg/mL injection 0.4 mg 0.4 mg, IV, Q5 Min PRN Ordered Sign: Daiana Guzman PA-C 09/13/2024 7:22 AM * Kalina Ying LCSW - 09/12/2024 1:54 PM EDT SW reviewed record. Pt discussed in progression rounds. Will follow and try to complete HCR with pt when he is medically appropriate. Pt's sister Julia and mother Carmina are directing care together at this time. Sister is first call. SW to follow. Signed: Kalina Ying LCSW * Pierre Michaud MD - 09/12/2024 12:32 PM EDT [facility] Progress Note Assessment & Plan Assessment Alcohol use disorder in remission for 15 years Tobacco use disorder with a [id number] history Presenting with altered mental status, left eye swelling, tongue swelling and severe right ear pain MRIs were done and the patient was sent down here It looks like he has a cavernous sinus thrombosis. 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 Plan Currently on meropenem I would get another MRI of his brain Subjective He is on the ventilator Objective Last Vitals Pulse:75,Resp:12,BP:120/59,SpO2:94 %,Weight:97.3 kg (214 lb 8.1 oz) Temp Last 24 hrs: Temp Min: 100 ??F (37.8 ??C) Max: 102.2 ??F (39 ??C) Last temp: (!) 101.5 ??F (38.6 ??C) (Esophageal) Physical Exam Lungs: Clear Cardiac: RRR Abdomen: +BS Soft Nontender Skin:No rash Left eye is injected with subconjunctival hemorrhage Anti-infectives (From admission, onward) Start Dose/Rate Route Frequency Ordered Stop 09/08/24 1700 meropenem (MERREM) 1 g in sodium chloride-MBP (NS) 100 mL IVPB-MBP 1 g 33.3 mL/hr over 3 Hours Intravenous Every 8 hours 09/08/24 1640 Intake/Output Summary (Last 24 hours) at 09/12/2024 1233 Last data filed at 09/12/2024 1200 Gross per 24 hour Intake 5712.72 ml Output 3550 ml Net 2162.72 ml Relevant data reviewed MEDICATIONS Current Facility-Administered Medications Medication Dose Route Frequency Provider Last Rate Last Admin dextrose 5 % (D5W) infusion 50 mL/hr Intravenous Continuous Marie Chamberlain PA-C 50 mL/hr at 09/12/24 1200 50 mL/hr at 09/12/24 1200 acetaminophen (TYLENOL) 160 mg/5 mL solution 650 mg 650 mg Feeding Tube Q6H PRN Marie Chamberlain PA-C bisacodyl (DULCOLAX) suppository 10 mg 10 mg Rectal Daily PRN Marie Chamberlain PA-C chlorhexidine (PERIDEX) 0.12 % oral solution 15 mL 15 mL Mouth/Throat BID Korina Lai PA-C 15 mL at 09/12/24 0851 chlorhexidine gluconate 2 % wipes - urethral catheter CHG application Topical Daily Nanci Guerra PA-C 1 each at 09/12/24 0851 clonazePAM (KlonoPIN) disintegrating tablet 0.25 mg 0.25 mg Feeding Tube Q8H [facility] Marie Chamberlain PA-C glucose (GLUTOSE 15) 40 % oral gel 37.5 g 1 Tube Oral Q15 Min PRN Marie Chamberlain PA-C Or glucose (GLUTOSE 15) 40 % oral gel 75 g 2 Tube Oral Q15 Min PRN Marie Chamberlain PA-C Or dextrose 50 % solution 12.5 g 12.5 g Intravenous Q15 Min PRN Marie Chamberlain PA-C Or dextrose 50 % solution 25 g 25 g Intravenous Q15 Min PRN Marie Chamberlain PA-C Or glucagon (GLUCAGEN) injection 1 mg 1 mg Intramuscular Daily PRN Marie Chamberlain PA-C glucose (GLUTOSE 15) 40 % oral gel 37.5 g 1 Tube Oral Q15 Min PRN KRISTA Hobbs Or glucose (GLUTOSE 15) 40 % oral gel 75 g 2 Tube Oral Q15 Min PRN KRISTA Hobbs Or dextrose 50 % solution 12.5 g 12.5 g Intravenous Q15 Min PRN KRISTA Hobbs Or dextrose 50 % solution 25 g 25 g Intravenous Q15 Min PRN KRISTA Hobbs Or glucagon (GLUCAGEN) injection 1 mg 1 mg Intramuscular Daily PRN KRISTA Hobbs haloperidol lactate (HALDOL) 5 mg/mL injection 5 mg 5 mg Intravenous Q2H PRN Britton Rodriguez PA-C heparin (porcine) 5000 unit/mL injection 5,000 Units 5,000 Units Subcutaneous Q8H [facility] Britton Rodriguez PA-C hydrocortisone-acetic acid (VOSOL-HC) 1-2 % otic solution 4 drop 4 drop Right Ear BID Lucia Barnes MD 4 drop at 09/12/24 0851 HYDROmorphone (DILAUDID) 2 mg/mL injection 2 mg 2 mg Intravenous Q2H PRN Marie Chamberlain PA-C 2 mg at 09/12/24 1119 HYDROmorphone (DILAUDID) IV infusion 50 mg in 50 mL NS (1 mg/mL) (premix) 2 mg/hr Intravenous Continuous Nanci Guerra PA-C 2 mL/hr at 09/12/24 1200 2 mg/hr at 09/12/24 1200 immune globulin (human) 10% in Solution (PRIVIGEN) IV Premix 5 g 5 g Intravenous Q24H Marie Chamberlain, PA-C 5 g at 09/11/242045 And immune globulin (human) 10% in Solution (PRIVIGEN) IV Premix 10 g 10 g Intravenous Q24H Marie Chamberlain, PA-C 10 g at 09/11/242048 And immune globulin (human) 10% in Solution (PRIVIGEN) IV Premix 20 g 20 g Intravenous Q24H Marie Chamberlain, PA-C 20 g at 09/11/247 insulin lispro (HumaLOG/ADMELOG) 100 units/mL injection 3-11 Units 3-11 Units Subcutaneous Q4H [facility] KRISTA Hobbs 4 Units at 09/12/24 1230 ketamine 1000 mg in 100 mL NS infusion (10 mg/mL) (premix) 30 mcg/kg/min Intravenous Continuous Bailey Monzon PA-C 17.5 mL/hr at 09/12/24 1200 30 mcg/kg/min at 09/12/24 1200 lactulose (ENULOSE) 10 gm/15 mL solution 20 g 30 mL OG Tube Q4H PRN Marie Chamberlain PA-C meropenem (MERREM) 1 g in sodium chloride-MBP (NS) 100 mL IVPB-MBP 1 g Intravenous Q8H KRISTA Nagy-C 33.3 mL/hr at 09/12/24 0851 1 g at 09/12/24 0851 methylPREDNISolone sodium succinate (SOLU-Medrol) injection 40 mg 40 mg Intravenous Q8H [facility] KRISTA Jones 40 mg at 09/12/24 0557 metoPROLOL TARTRATE (LOPRESSOR) tablet 25 mg 25 mg Feeding Tube Q12H [facility] Britton Rodriguez PA-C 25 mg at 09/12/24 1054 [START ON 09/13/2024] naloxegol (MOVANTIK) tablet 25 mg 25 mg Feeding Tube Daily before breakfast Marie Chamberlain PA-C naloxone (NARCAN) 0.4 mg/mL injection 0.4 mg 0.4 mg Intravenous Q5 Min PRN Marie Chamberlain PA-C nicotine (NICODERM CQ) 21 MG/24HR patch 1 patch 1 patch Transdermal Daily KRISTA Bedolla 1patch at 09/12/24 0851 polyethylene glycol (miraLAx) packet 17 g 17 g Feeding Tube BID Marie Chamberlain PA-C QUEtiapine (SEROquel) tablet 25 mg 25 mg Feeding Tube BID Marie Chamberlain PA-C QUEtiapine (SEROquel) tablet 50 mg 50 mg Feeding Tube Nightly Marie Chamberlain PA-C senna-docusate (SENNA-S) 8.6-50 MG tablet 2 tablet 2 tablet Feeding Tube BID Marie Chamberlain PA-C Notable labs are: Lab Results Component Value Date WBC 6.0 09/12/2024 HGB 8.2 (L) 09/12/2024 HCT 24.7 (L) 09/12/2024 PLT 55 (L) 09/12/2024 Lab Results Component Value Date AST 109 (H) 09/12/2024 ALT 152 (H) 09/12/2024 ALKPHOS 56 09/12/2024 BILITOT 4.5 (H) 09/12/2024 BILIDIR 3.4 (H) 09/12/2024 ALBUMIN 2.5 (L) 09/12/2024 PROT 7.6 09/12/2024 Lab Results Component Value Date CREAT 1.0 09/12/2024 Blood Cultures: Lab Results Component Value Date CULTURE Negative after 2 days 09/08/2024 CULTURE 09/08/2024 No fungi isolated. Culture will be held for two weeks. CULTURE Negative after 4 days 09/08/2024 Urine Cultures: No results found for: CRYSUA , HYALNCSTUA , UROBILINOGEN , BILIUA , BLOODUA , CLARITYUA , COLORUA , UACOMMENT , GLUCU , KETONESUA , LEUKOCYTESUA , NITRITEUA , PHUA , PROTEINUA , RBCUA , SPECIMEN , SPECGRAVUA , SQEPIUA , WBCUA No components found for: WOUND C. Difficile: No results found for: CDIFFTOX , NAP1 Sign Pierre Michaud MD 09/12/2024 12:33 PM Pierre Michaud * Amber Martinez CM - 09/12/2024 12:29 PM EDT 09/12/24 1228 Discharge Coordination/Tasks Status Patient/Patient Crepe Maker Provided With Choices Of Facility Preference(s) Facility Preference(s) [facility], [facility], [facility], [facility], [facility] per sister and mother * Kelly Rodriguez MD - 09/12/2024 10:01 AM EDT Images from the original note were not included. Division of Pulmonary, Critical Care, and Sleep Medicine [address] [facility], [address], [place] [address] Critical Care Note Assessment 63 y.o. male with hx of Etoh use admitted on 09/07/2024 for eye swelling (admitted to OSH on 09/06/24). Course c/b thrombocytopenia, sepsis, respiratory failure - tx to on 09/07/24. Intubated on 09/08/24. Active Problems: Acute metabolic encephalopathy Cavernous sinus thrombosis Acute hypoxic respiratory failure Diffuse alveolar hemorrhage R otitis media Pulmonary edema Volume overload Hypoalbuminemia Thrombocytopenia Sepsis SIRS ARDS Lactic acidosis SVT Shock Hypotension Leukocytosis CLINT Comorbid Conditions: Active Nicotine Dependence Total LOS: 5 days Overnight Agitated at night TG high on propofol Plan by System I performed rounds on the medical unit with the entire critical care team and we discussed the events below while developing the daily treatment plan: Neuro: CAM-ICU Delirium Present: Positive Dwyer Agitation Sedation Scale (RASS) / Modified RASS: -1-->Wakes easily, drowsy Ketamine started due to high TG with Prop Intermittent agitation Moves all ext Dilaudid at 2mg/hr Clonazepam 0.25mg Seroquel Add Haldol 5mg Q2 Repeat Head CT completed with read pending re cavernous sinus thrombosis surveillance Resp: Ventilator Start 09/08/24 0935 (Active) Number of days: 4 Ventilation Mode (Drager V500): (S) SPN-CPAP/PS (weaned) Oxygen Concentration (%) (Drager V500): 40 PEEP (cmH2O) (Drager V500): 6 Pressure Support (cmH2O) (Drager V500): 5 Down to PSV Bronch c/w DAH Vasculitis studies pending; these are send out labs so unknown when these will return Remains on Methylprednisolone 250mg Q6 CV: Lopressor 25mg bid to start QtC 471ms Severe stenosis + Mitral stenosis Cardiology consult pending Hemoptysis may have been the result of high wedge with capillary blood loss in setting of low platelets if not from vasculitis >Echo: TTE 09/11/2024 Left ventricular systolic function is hyperdynamic. The quantitative EF by 2D Stark biplane is 80%. Right ventricular systolic function is normal. There is likely severe aortic stenosis based on gradients and velocities. The continuity derived aortic valve area is less reliable in the setting of poor spectral signal. The peak velocity is 4.3 m/s and mean gradient is 45.7 mmHg. There is progressive calcific mitral stenosis. There is a mean transmitral gradient of 5 mmHg at a heart rate of 81 bpm. There is no previous study for comparison in our system. GI: Lactic acid normalized Bilirubin remains slightly elevated Add Movantik >Nutrition: Diet/Nutrition Received: NPO, tube feeding Diet, Tube Feeding, No Tray Continuous; OG Tube; Osmolite 1.5; 20 mL; 60 mL/hr; Water; Every 4 hours; 400; NPO Renal: Early for urinary retention CLINT improving >Intake & Output Intake/Output Summary (Last 24 hours) at 09/12/2024 1001 Last data filed at 09/12/2024 0900 Gross per 24 hour Intake 4804.22 ml Output 4066 ml Net 738.22 ml I/O last 3 completed shifts: In: 5735 [I.V.:1052; NG/GT:4080; IV Piggyback:603] Out: 6507 [Urine:6507] Endo: MARY Heme/Onc: Anemia and thrombocytopenia Platelets Rec'd IVIG 08/26 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 Michaud following >Antibiotics: Anti-infectives (From admission, onward) Start Dose/Rate Route Frequency Ordered Stop 09/08/24 1700 meropenem (MERREM) 1 g in sodium chloride-MBP (NS) 100 mL IVPB-MBP 1 g 33.3 mL/hr over 3 Hours Intravenous Every 8 hours 09/08/24 1640 >Recent Cultures: Culture Date Value Ref Range Status 09/08/2024 Negative after 2 days Final 09/08/2024 Preliminary No fungi isolated. Culture will be held for two weeks. 09/08/2024 Negative after 4 days Preliminary ICU Checklist Drips: dextrose, 50 mL/hr, Last Rate: 50 mL/hr (09/12/24 0900) HYDROmorphone, 2 mg/hr, Last Rate: 2 mg/hr (09/12/24 0900) ketamine, 30 mcg/kg/min, Last Rate: 30 mcg/kg/min (09/12/24 0900) Lines: Peripheral IV - Single Lumen (Adult) 09/07/24 1600 median vein (underside of arm), right 20 gauge (Active) Number of days: 5 Peripheral IV - Single Lumen (Adult) 09/07/24 2200 median vein (underside of arm), right 20 gauge (Active) Number of days: 5 Peripheral IV - Single Lumen (Adult) 09/12/24 0338 cephalic vein (lateral side of arm), left 22 gauge;1 in length;3/4 in length (Active) Number of days: 0 Restraints: Restraint Type: Unlocked Unlocked Bilateral Wrist (NV): continued Behaviors Observed: pulling at lines/tubes, confused, agitated/restless Mobility: Progressive Mobility Level Achieved: Level 0 Early: Urethral Catheter (Adult) 09/07/24 2200 10 mL balloon inflation volume (Active) Number of days: 5 GI Prophylaxis (if needed): None VTE Time Out IMPROVE SCORE: 2 (09/07/2024 5:40 PM) Interpretation - High Risk Chemical Prophylaxis Chemical VTE prophylaxis NOT ordered. Click here to order if appropriate Chemical Prophylaxis Contraindication: None - I will place appropriate order Mechanical Prophylaxis SCDs are ordered - Bilateral (Knee High) Code Status and Disposition CODE STATUS: Full DISPOSITION: ICU I spent 31 minutes of Critical Care time in multiple visits throughout the day for collaboration/coordination of care exclusive of time spent performing separately billable medical procedures. I affirm that this patient is critically ill and at high risk for sudden, fatal deterioration due to one or more of the above active issues. I managed/supervised life- or organ-supporting interventions that require frequent physician assessment and reassessment. Critical care time was spent, but not limited to, the review of laboratory test results, medications, relevant radiology and discussing this critically ill patient's care with other medical staff in the unit or at the nursing station [facility] where the patient is located. My full attention was given to the management of this patient and I was immediately available during this same time. Objective SpO2:95 %,O2 Device: ventilator, , Oxygen Concentration (%): 50 Oxygen Concentration (%) (Drager V500): 40 Temp Last 24 hrs: Temp Min: 100 ??F (37.8 ??C) Max: 102.2 ??F (39 ??C) WBC Trend White Blood Cell Count Date Value Ref Range Status 09/12/2024 6.0 4.0 - 11.0 Thou/uL Final 09/11/2024 5.7 4.0 - 11.0 Thou/uL Final 09/11/2024 4.8 4.0 - 11.0 Thou/uL Final 09/10/2024 5.8 4.0 - 11.0 Thou/uL Final Last Vitals: Pulse:(!) 109, Resp:(!) 22, BP:BP Min: 137/65 Max: 186/89 MAP: 86 mm Hg Physical Exam: General: Intermittent agitation; ETT in place HEENT: supple without LAD Lungs: clear to auscultation bilaterally Chest wall: no tenderness Heart: regular rate and rhythm, S1, S2 normal, no murmur, click, rub or gallop Abdomen: soft, non-tender; bowel sounds normal; no masses, no organomegaly Extremities: atraumatic, no cyanosis or edema Neuro: Moves extremities I reviewed the prescribed Medications and new Laboratory Blood Work I reviewed all new Imaging Studies (actual images) and compared to prior where applicable Sign: Kelly Rodriguez MD 09/12/2024 10:01 AM * Marie Chamberlain PA-C - 09/12/2024 5:57 AM EDT Critical Care Progress Note Subjective Overnight events: - continues to be agitated overnight - increased ketamine to 30 mcg/kg/min - dilaudid 2mg IV PRN (x3 overnight) - versed 2mg IV PRN (x2 overnight) Assessment & Plan Assessment: Mariah Masterson is a 63 year old male with PMHx of depression, alcohol abuse, tobacco use who presented to OSH for concern of left eye swelling and right ear pain. He was ultimately transferred to for ENT, ophthalmology, ID, neuro consults. He was admitted for further management of cavernous sinus thrombosis with course complicated by worsening hypoxia with concern for DAH in the setting of ARDS. Principal Problem: Acute cerebral venous sinus thrombosis LOS: 5 days Plan by system Neuro: AMS, agitation, cavernous sinus thrombosis, Hx depression, tobacco use, ETOH use (in remission 15 years) - Mental status: intermittently agitated at times, moving all extremities spontaneously, not following commands - Dilaudid gtt @ 2mg/hr dilaudid 2mg PRN (x3 overnight) - Continue ketamine gtt @30mcg/kg/min - Started on klonopin 0.25mg q8h scheduled - Started on haldol 5mg q2h PRN - Continue seroquel - Stopped scheduled ativan and versed PRN - s/p propofol; triglycerides 531 - s/p precedex (turned off for fevers) - tylenol 650mg q6h PRN for fevers - Continue with nicotine patch - active smoker - Holding home paroxetine 40mg daily and risperidone 0.5 BID - repeat CT head w/o contrast for AMS on 09/08; no acute infarct or hemorrhage - CTA head and neck ordered (09/12) per neuro for stability scan of cavernous sinus thrombosis; readpending - consulted for help with HCR (daughter next of kin but estranged 30 years; mom and sister in chart) - patient had CT head, brain MRI and head/brain venography at OSH; significant findings as below - neuro consulted for cavernous sinus thrombosis; continue with IV abx; anticoagulation typically mainstay of treatment but cannot be started secondary to thrombocytopenia - Neuro to review with IR - no thrombosis seen on MRV per neuro IR CT Head 09/08: 1. No CT evidence of acute territorial infarction or acute intracanal hemorrhage. Limited evaluation of the brainstem. Please note, CT is not sensitive to take small acute ischemic infarct. MR of the brain without contrast is recommended for further assessment. 2. Mild to moderate chronic white matter small as ischemic changes. CT Head at OSH CT head with abnormal findings in the right mastoid air cells, middle and external ear. Favor otitis media, externa with soft tissue asp status and mastoiditis. MRV at OSH with normal flow related enhancement in the major cortical and dural venous sinuses. CT A/P with hepatosplenomegaly, distended gallbladder, thickening of the adrenal glands, bilateral perinephric stranding, distended stomach with air- fluid level. MRI Brain (at OSH): 1. Abnormalities of the left orbit including mild enlargement of the extraocular muscles, mild edema throughout the intra and extra conal fat, loss of the normal flow-void of the superior ophthalmic vein, mild enlargement of the left superior ophthalmic vein, minimal left lobe proptosis and left preseptal soft tissue edema. There may be thrombosis of the left superior ophthalmic vein. These findings all highly suggest left cavernous sinus thrombosis. 2. Right mastoid tympanic space effusion andcerumen impaction in the right external auditory canal. 3. Edema and swelling throughout the right temporalis muscle and involving the right > left muscles of mastication of uncertain etiology, direct extension of right mastoiditis is a consideration as is right cavernous sinus thrombosis. 4. High signal within the right sphenoid parietal sinus is also present suggesting thrombosis. ENT: Left eye swelling (improving), right sided otitis externa and media - CT IAC with contrast - read pending - Continue on acetic acid for ear culture growing yeast - Patient with improvement in left eye swelling - Ophthalmology consulted, given no light perception in left eye, poor visual prognosis; no acute interventions recommended to help with left eye vision - No evidence of right eye involvement - Per ophtho, left vision loss maybe likely to thrombosis disrupting blood-flow or involvement of the orbital apex or posterior ischemic optic neuropathy given unremarkable fundus exam, normal IOP (22) and non-edematous optic nerve - Pt stated he has hx of chronic right ear pain and will often instill hydrogen peroxide and clean out ear with qtip - ENT consulted, no surgical intervention at this time, keep ear wick in place - No clinical evidence of mastoiditis -s/p ciprodex drops for ear infection Behavioral/Sedation scales [facility]-ICU Delirium Present: Positive Dwyer Agitation Sedation Scale (RASS) / Modified RASS: -1-->Wakes easily, drowsy Resp: Hypoxia with concern for diffuse alveolar hemorrhage in the setting of ARDS (improving) - SpO2 >91% on vent settings below - intubated on 09/08 - bronchoscopy on 09/08; findings consistent with DAH; cultures negative to date - labs pending for DAH workup (anti-GBM, lupus w/ reflex, RF, CCP Ab, dsDNA, complement C3, C4, ANCA, myeloperoxidase Ab, proteinase-3 Ab) - SBT as tolerated - VBG (09/09) 7.29/52 - ABG(09/08) - 7.3/50/229 - mixed venous (09/09) 86.1 (83.5) - proBNP (09/08): 3,773 (5786) - Continue solu-medrol 40mg q8h; s/p 3 days of pulse dose steroids (1g/day) - CT Thorax read pending CXR 09/08: Mild interval improvement in bilateral airspace opacities. CXR(09/07) 1. Markedly worsened diffuse bilateral interstitial and airspace opacification involving the entire lungs bilaterally. 2. Heart and mediastinum are widened, this is exaggerated by AP technique and unchanged. Vent Mode: PC-AC Rate set: 14 Tidal volume: Insp Pressure: 20 FIO2: 40 PEEP: 6 CV: non- sustained VT, hypertension - SBP 120s-180s HR 70s-120s - Start lopressor 25mg BID for hypertension - HS trop (09/07): 22 - ECG 09/11 NSR RBBB QTC 471 - ECHO with hyperdynamic L ventricular systolic function EF 80%; severe aortic stenosis, consulted cardiology for - Continue to spot diurese for goal net negative; hold today for hypernatremia ECHO 09/11/24: Left ventricular systolic function is hyperdynamic. The quantitative EF by 2D Stark biplane is 80%. Right ventricular systolic function is normal. There is likely severe aortic stenosis based on gradients and velocities. The continuity derived aortic valve area is less reliable in the setting of poor spectral signal. The peak velocity is 4.3 m/s and mean gradient is 45.7 mmHg. There is progressive calcific mitral stenosis. There is a mean transmitral gradient of 5 mmHg at a heart rate of 81 bpm. There is no previous study for comparison in our system. ECHO at OSH - Hyperdynamic LVEF greater than 70% with impaired relaxation filling pattern. At least moderately dilated left atrium. Calcified aortic valve changes noted with mean gradient of 32 mmHg with a calculated valve area in mild stenosis range suggestive of overall probably increase flow through the aortic valve due to higher stroke volume. Calcific mitral valve changes noted with possible mild mitral stenosis. Mildly dilated ascending aorta 3.7cm. No gross pericardial effusion. GI: Transaminitis, Resolved Lactic acidosis - Diet: TF via OGT - Lactic acid (09/07): 1.9 (5.1 at OSH) - Tbili 4.5(3.2) Dbili 3.4(2.4) AST/ALT 109/152 (48/20) alk phos 56 (66) - CT A/P at OSH with hepatosplenomegaly, distended gallbladder, thickening of the adrenal glands, bilateral perinephric stranding, distended stomach with air- fluid level. - 0 BM/24hrs - On senna and miralax BID; will add movantik Renal: CLINT (improving) - BUN/Cr 48/1.0 (59/1.1) - Na 153 (156) - on FWF 400q4h and D5 @ 50/hr - K 4.7 (4.7) - Mag 3.0 (3.3) - phos 2.8) (2.8) - early placed for retention and now CLINT - UOP 4.3L / 24hrs; net -700cc / 24hrs +2.9L / LOS - received fluids (sepsis bolus) and albumin at OSH Early: yes Early indication: Urinary Retention Intake & Output Intake/Output Summary (Last 24 hours) at 09/12/2024 0557 Last data filed at 09/12/2024 0500 Gross per 24 hour Intake 3599.22 ml Output 4567 ml Net -967.78 ml Endo: No active issues - BG 140s-170s - check FS q4h while on TF - Continue SUZE - hypoglycemia protocol - TSH 0.80 Heme/Onc: Anemia, Thrombocytopenia - H/H 8.2/24.7 (8.1/24.9) - Plt 55 (54) - s/p 3 plt, s/p 2 plt at OSH - Plt goal >30 - PT 14.4 PTT 27 - INR 1.3 - fibrinogen 579 (550) - thrombin time 12.2 - Duplex LE with no DVT; upper extremity duplex ordered and pending - Heme Onc following - 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 Findings are not consistent with the presence of deep vein thrombosisbilaterally. ID: Resolved leukocytosis, possible PNA, HEENT infection - Tmax 101.5, WBC 6.0 (5.7) - UA at OSH positive for nitrites and trace LE no bacteria - right ear culture pending at OSH - right ear culture(09/07) - yeast bordetella species - blood cx OSH - GNR - blood cultures (09/07) no growth to date - bronch cultures (09/08) no growth to date - MRSA swab (09/07) negative - urine strep presumptive positive - Dr. Michaud following - continue meropenem - fluvid negative - legionella prelim negative - PJP negative - s/p vanco, zosyn and ceftriaxone at OSH Vascular access: PIV IV access Mobility: Progressive Mobility Level Achieved: Level 0,PT/OT: Yes GI PPx: none DVT PPx: PAS and SC Heparin VTE Risk Assessment VTE Time Out IMPROVE SCORE: 2 (09/07/2024 5:40 PM) Interpretation - High Risk Chemical Prophylaxis Chemical VTE prophylaxis NOT ordered. Click here to order if appropriate Chemical Prophylaxis Contraindication: None - I will place appropriate order Mechanical Prophylaxis SCDs are ordered - Bilateral (Knee High) Mechanical VTE prophylaxis NOT ordered. Click here to order if appropriate Mechanical Prophylaxis Contraindication: None - I will order SCDs Drips: dextrose, 50 mL/hr, Last Rate: 50 mL/hr (09/12/24 0500) HYDROmorphone, 2 mg/hr, Last Rate: 2 mg/hr (09/12/24 0500) ketamine, 30 mcg/kg/min, Last Rate: 30 mcg/kg/min (09/12/24 0500) Lines: Peripheral IV - Single Lumen (Adult) 09/07/24 1600 median vein (underside of arm), right 20 gauge (Active) Number of days: 5 Peripheral IV - Single Lumen (Adult) 09/07/24 2200 median vein (underside of arm), right 20 gauge (Active) Number of days: 5 Peripheral IV - Single Lumen (Adult) 09/12/24 0338 cephalic vein (lateral side of arm), left 22 gauge;1 in length;3/4 in length (Active) Number of days: 0 Enteric Access and Early: Naso/Orogastric Tube (Adult) 09/08/24 1100 Hancock sump 18 Fr mouth, center (Active) Number of days: 4 Urethral Catheter (Adult) 09/07/24 2200 10 mL balloon inflation volume (Active) Number of days: 5 Restraints: soft wrists bilaterally Interference with medical treatment Code: FULL Dispo: ICU, per Dr. Rodriguez Objective Last Vitals: Pulse:80, Resp:14, BP:BP Min: 126/59 Max: 183/89 MAP: 86 mm Hg SpO2:94 % CVP: Temp Last 24 hrs: Temp Min: 100 ??F (37.8 ??C) Max: 101.5 ??F (38.6 ??C) Physical Exam: General appearance: adult male, laying in bed, sedated intermittently agitated HEENT: left eye with improvement in swelling, no light perception or accomodation; no right eye involvement; R pupil reactive to light Lungs: coarse and diminished lung sounds throughout bilaterally Heart: tachycardic, normal rhythm Abdomen: normal active bowel sounds, abdomen soft, non-tender non-distended Extremities: no edema to lower or upper extremities Neurologic: intermittently agitated,moving extremities spontaneously, not following commands Labs: Recent Labs 09/09/24 1222 09/09/24 2355 09/10/24 1209 09/11/24 0010 09/11/24 1115 09/12/24 0019 WBC 10.7 7.7 5.8 4.8 5.7 6.0 HGB 8.1* 7.6* 7.9* 7.3* 8.1* 8.2* HCT 24.2* 23.6* 23.5* 21.9* 24.9* 24.7* PLT 35* 30* 28* 48* 54* 55* MCV 92 96 93 96 96 96 MCH 30.9 30.9 31.3* 32.0* 31.3* 31.8* MCHC 33.5 32.2 33.6 33.3 32.5 33.2 RDW 14.7* 14.6* 14.6* 14.3 14.3 14.0 BASOABS -- -- -- -- -- 0.00 Recent Labs 09/09/24 1222 09/09/24 2355 09/10/24 1209 09/11/24 0010 09/11/24 1115 09/12/24 0019 BUN 85* 84* 76* 67* 59* 48* CREAT 1.6* 1.6* 1.2 1.1 1.1 1.0 NA 144 146* 149* 149* 156* 153* K 4.8 4.9 4.9 4.9 4.7 4.7 CO2 20* 24 24 26 29 31 CL 115* 116* 118* 118* 120* 118* MG 3.3* 3.5* 3.4* 3.3* -- 3.0* PHOS 5.0* 4.5 3.7 2.8 -- 2.8 AST -- -- -- -- -- 109* ALT -- -- -- -- -- 152* PROT -- -- -- -- -- 7.6 No results for input(s): PT , PTT , INR in the last 72 hours. Medications Medication/MAR Report: Medications Scheduled Medication Ordered Dose/Rate, Route, Frequency Last Action chlorhexidine (PERIDEX) 0.12 % oral solution 15 mL 15 mL, MT, BID Given, 15 mL at 09/11 2056 chlorhexidine gluconate 2 % wipes - urethral catheter CHG application No Dose/Rate, TOP, Daily Given, 1 each at 09/11 821 hydrocortisone-acetic acid (VOSOL-HC) 1-2 % otic solution 4 drop 4 drop, RIGHT EAR, BID Given, 4 drop at 09/12 2031 immune globulin (human) 10% in Solution (PRIVIGEN) IV Premix 10 g (And Linked Group #1) 10 g, IV, Q24H New Bag, 10 g at 09/11 2048 immune globulin (human) 10% in Solution (PRIVIGEN) IV Premix 20 g (And Linked Group #1) 20 g, IV, Q24H New Bag, 20 g at 09/11 2226 immune globulin (human) 10% in Solution (PRIVIGEN) IV Premix 5 g (And Linked Group #1) 5 g, IV, Q24H New Bag, 5 g at 09/11 2045 insulin lispro (HumaLOG/ADMELOG) 100 units/mL injection 3-11 Units 3-11 Units, SC, Q4H ZO Given, 4 Units at 09/12 413 LORazepam (ATIVAN) injection 0.25 mg 0.25 mg, IV, Q8H ZO Given, 0.25 mg at 09/12 05 meropenem (MERREM) 1 g in sodium chloride-MBP (NS) 100 mL IVPB-MBP 1 g, IV, Q8H New Bag, 1 g at 09/13 207 methylPREDNISolone sodium succinate (SOLU-Medrol) injection 40 mg 40 mg, IV, Q8H ZO Given, 40 mg at 09/12 05 nicotine (NICODERM CQ) 21 MG/24HR patch 1 patch 1 patch, TD, Daily Patch Applied, 1 patch at 09/12 819 polyethylene glycol (miraLAx) packet 17 g 17 g, PO, BID Given, 17 g at 09/12 2031 QUEtiapine (SEROquel) tablet 25 mg 25 mg, PO, BID Given, 25 mg at 09/12 1103 QUEtiapine (SEROquel) tablet 50 mg 50 mg, PO, Nightly Given, 50 mg at 09/11 2030 senna-docusate (SENNA-S) 8.6-50 MG tablet 2 tablet 2 tablet, PER OG TUBE, BID Given, 2 tablet at 09/12 2031 Continuous Medication Ordered Dose/Rate, Route, Frequency Last Action dextrose 5 % (D5W) infusion 50 mL/hr, IV, Continuous Rate/Dose Verify, 50 mL/hr at 09/12 499 HYDROmorphone (DILAUDID) IV infusion 50 mg in 50 mL NS (1 mg/mL) (premix) 2 mg/hr, IV, Continuous Rate/Dose Verify, 2 mg/hr at 09/12 499 ketamine 1000 mg in 100 mL NS infusion (10 mg/mL) (premix) 30 mcg/kg/min, IV, Continuous Rate/Dose Verify, 30 mcg/kg/min at 09/12 499 PRN Medication Ordered Dose/Rate, Route, Frequency Last Action acetaminophen (TYLENOL) 160 mg/5 mL solution 650 mg 650 mg, PO, Q6H PRN Given, 650 mg at 09/12 209 bisacodyl (DULCOLAX) suppository 10 mg 10 mg, RE, Daily PRN Ordered dextrose 50 % solution 12.5 g (Or Linked Group #2) 12.5 g, IV, Q15 Min PRN Ordered dextrose 50 % solution 12.5 g (Or Linked Group #3) 12.5 g, IV, Q15 Min PRN Ordered dextrose 50 % solution 25 g (Or Linked Group #2) 25 g, IV, Q15 Min PRN Ordered dextrose 50 % solution 25 g (Or Linked Group #3) 25 g, IV, Q15 Min PRN Ordered glucagon (GLUCAGEN) injection 1 mg (Or Linked Group #2) 1 mg, IM, Daily PRN Ordered glucagon (GLUCAGEN) injection 1 mg (Or Linked Group #3) 1 mg, IM, Daily PRN Ordered glucose (GLUTOSE 15) 40 % oral gel 37.5 g (Or Linked Group #2) 1 Tube, PO, Q15 Min PRN Ordered glucose (GLUTOSE 15) 40 % oral gel 37.5 g (Or Linked Group #3) 1 Tube, PO, Q15 Min PRN Ordered glucose (GLUTOSE 15) 40 % oral gel 75 g (Or Linked Group #2) 2 Tube, PO, Q15 Min PRN Ordered glucose (GLUTOSE 15) 40 % oral gel 75 g (Or Linked Group #3) 2 Tube, PO, Q15 Min PRN Ordered HYDROmorphone (DILAUDID) 2 mg/mL injection 2 mg 2 mg, IV, Q2H PRN Given, 2 mg at 04/22 0115 lactulose (ENULOSE) 10 gm/15 mL solution 20 g 30 mL, PER OG TUBE, Q4H PRN Ordered midazolam (VERSED) 2 mg/2 mL injection 2 mg 2 mg, IV, Q4H PRN Ordered naloxone (NARCAN) 0.4 mg/mL injection 0.4 mg 0.4 mg, IV, Q5 Min PRN Ordered Sign: Marie Chamberlain PA-C 09/12/2024 5:57 AM * Pierre Michaud MD - 09/11/2024 11:58 AM EDT [facility] Progress Note Assessment & Plan Assessment Alcohol use disorder in remission for 15 years Tobacco use disorder with a [id number] history Presenting with altered mental status, left eye swelling, tongue swelling and severe right ear pain MRIs were done and the patient was sent down here It looks like he has a cavernous sinus thrombosis. 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 It is unclear what the significance of this is Plan Continues on meropenem May be kohli to get another MRI of his head Subjective Not waking up He is moving everything Objective Last Vitals Pulse:99,Resp:(!) 23,BP:(!) 160/76,SpO2:96 %,Weight:97.3 kg (214 lb 8.1 oz) Temp Last 24 hrs: Temp Min: 96.1 ??F (35.6 ??C) Max: 101.7 ??F (38.7 ??C) Last temp: 100.2 ??F (37.9 ??C) Physical Exam Lungs: Clear Cardiac: RRR Abdomen: +BS Soft Nontender Skin:No rash Left eye is very injected with subconjunctival hemorrhage Anti-infectives (From admission, onward) Start Dose/Rate Route Frequency Ordered Stop 09/08/24 1700 meropenem (MERREM) 1 g in sodium chloride-MBP (NS) 100 mL IVPB-MBP 1 g 33.3 mL/hr over 3 Hours Intravenous Every 8 hours 09/08/24 1640 Intake/Output Summary (Last 24 hours) at 09/11/2024 1158 Last data filed at 09/11/2024 1106 Gross per 24 hour Intake 3302.35 ml Output 3167 ml Net 135.35 ml Relevant data reviewed MEDICATIONS Current Facility-Administered Medications Medication Dose Route Frequency Provider Last Rate Last Admin acetaminophen (TYLENOL) 160 mg/5 mL solution 650 mg 650 mg Oral Q6H PRN Marie Chamberlain PA-C 650 mg at 09/11/24 1152 bisacodyl (DULCOLAX) suppository 10 mg 10 mg Rectal Daily PRN Marie Chamberlain PA-C chlorhexidine (PERIDEX) 0.12 % oral solution 15 mL 15 mL Mouth/Throat BID Korina Lai PA-C 15 mL at 09/11/24 0821 chlorhexidine gluconate 2 % wipes - urethral catheter CHG application Topical Daily Nanci Guerra PA-C 1 each at 09/11/24 0822 glucose (GLUTOSE 15) 40 % oral gel 37.5 g 1 Tube Oral Q15 Min PRN Marie Chamberlain PA-C Or glucose (GLUTOSE 15) 40 % oral gel 75 g 2 Tube Oral Q15 Min PRN Marie Chamberlain PA-C Or dextrose 50 % solution 12.5 g 12.5 g Intravenous Q15 Min PRN Marie Chamberlain PA-C Or dextrose 50 % solution 25 g 25 g Intravenous Q15 Min PRN Marie Chamberlain PA-C Or glucagon (GLUCAGEN) injection 1 mg 1 mg Intramuscular Daily PRN Marie Chamberlain PA-C glucose (GLUTOSE 15) 40 % oral gel 37.5 g 1 Tube Oral Q15 Min PRN KRISTA Hobbs Or glucose (GLUTOSE 15) 40 % oral gel 75 g 2 Tube Oral Q15 Min PRN KRISTA Hobbs Or dextrose 50 % solution 12.5 g 12.5 g Intravenous Q15 Min PRN KRISTA Hobbs Or dextrose 50 % solution 25 g 25 g Intravenous Q15 Min PRN KRISTA Hobbs Or glucagon (GLUCAGEN) injection 1 mg 1 mg Intramuscular Daily PRN KRISTA Hobbs hydrocortisone-acetic acid (VOSOL-HC) 1-2 % otic solution 4 drop 4 drop Right Ear BID Lucia Barnes MD 4 drop at 09/11/24 0825 HYDROmorphone (DILAUDID) 2 mg/mL injection 2 mg 2 mg Intravenous Q2H PRN KRISTA Jones 2 mg at 09/11/24 1039 HYDROmorphone (DILAUDID) IV infusion 50 mg in 50 mL NS (1 mg/mL) (premix) 2 mg/hr Intravenous Continuous Nanci Guerra PA-C 2 mL/hr at 09/11/24 1000 2 mg/hr at 09/11/24 1000 insulin lispro (HumaLOG/ADMELOG) 100 units/mL injection 3-11 Units 3-11 Units Subcutaneous Q4H [facility] KRISTA Hobbs 4 Units at 09/11/24 0818 ketamine 1000 mg in 100 mL NS infusion (10 mg/mL) (premix) 15 mcg/kg/min Intravenous Continuous Marie Chamberlain PA-C 8.8 mL/hr at 09/11/24 1146 15 mcg/kg/min at 09/11/24 1146 lactulose (ENULOSE) 10 gm/15 mL solution 20 g 30 mL OG Tube Q4H PRN Marie Chamberlain PA-C LORazepam (ATIVAN) injection 1 mg 1 mg Intravenous Q6H Marie Chamberlain PA-C 1 mg at 09/11/24 1144 meropenem (MERREM) 1 g in sodium chloride-MBP (NS) 100 mL IVPB-MBP 1 g Intravenous Q8H Marie Chamberlain PA-C 33.3 mL/hr at 09/11/24 0822 1 g at 09/11/24 0822 methylPREDNISolone sodium succinate (SOLU-Medrol) injection 250 mg 250 mg Intravenous Q6H ZO Chamberlain PA-C 250 mg at 09/11/24 0603 [START ON 09/12/2024] methylPREDNISolone sodium succinate (SOLU-Medrol) injection 40 mg 40 mg Intravenous Q8H KRISTA Xiong naloxone (NARCAN) 0.4 mg/mL injection 0.4 mg 0.4 mg Intravenous Q5 Min PRN Marie Chamberlain PA-C nicotine (NICODERM CQ) 21 MG/24HR patch 1 patch 1 patch Transdermal Daily KRISTA Bedolla 1patch at 09/11/24 0820 polyethylene glycol (miraLAx) packet 17 g 17 g Oral BID Marie Chamberlain PA-C 17 g at 09/11/24 1103 QUEtiapine (SEROquel) tablet 25 mg 25 mg Oral BID KRISTA Jones 25 mg at 09/11/24 1104 QUEtiapine (SEROquel) tablet 50 mg 50 mg Oral Nightly KRISTA Jones senna-docusate (SENNA-S) 8.6-50 MG tablet 2 tablet 2 tablet OG Tube BID Marie Chamberlain PA-C 2 tablet at 09/11/24 1103 Notable labs are: Lab Results Component Value Date WBC 4.8 09/11/2024 HGB 7.3 (L) 09/11/2024 HCT 21.9 (L) 09/11/2024 PLT 48 (L) 09/11/2024 Lab Results Component Value Date AST 48 09/08/2024 ALT 20 09/08/2024 ALKPHOS 66 09/08/2024 BILITOT 3.2 (H) 09/08/2024 BILIDIR 2.4 (H) 09/08/2024 ALBUMIN 2.6 (L) 09/08/2024 PROT 5.2 (L) 09/08/2024 Lab Results Component Value Date CREAT 1.1 09/11/2024 Blood Cultures: Lab Results Component Value Date CULTURE Negative after 2 days 09/08/2024 CULTURE 09/08/2024 No fungi isolated. Culture will be held for two weeks. CULTURE Negative after 3 days 09/08/2024 Urine Cultures: No results found for: CRYSUA , HYALNCSTUA , UROBILINOGEN , BILIUA , BLOODUA , CLARITYUA , COLORUA , UACOMMENT , GLUCU , KETONESUA , LEUKOCYTESUA , NITRITEUA , PHUA , PROTEINUA , RBCUA , SPECIMEN , SPECGRAVUA , SQEPIUA , WBCUA No components found for: WOUND C. Difficile: No results found for: CDIFFTOX , NAP1 Sign Pierre Michaud MD 09/11/2024 11:58 AM Pierre Michaud * Loyda Lilly APRN - 09/11/2024 11:51 AM EDT Hematology/Oncology Progress Note Principal Problem: Acute cerebral venous sinus thrombosis (POA: Yes) Resolved Problems: Assessment & Plan This is a 63-year-old male with a history of depression, alcohol use disorder in remission for 15 years, tobacco use disorder presented to [facility] for altered mental status, left eye swelling, tongue swelling and severe right ear pain. MRI brain suggestive of a left cavernous sinus thrombosis. ENT at [facility] was consulted and reviewed the case but did not feel the patient required transf er as surgery was not indicated and he likely has mastoiditis. He was started on vancomycin, meropenem and caspofungin and was transferred to [facility] Hospital course complicated by acute respiratory failure requiring intubation, sepsis and thrombocytopenia. Hematology following in the setting of thrombocytopenia Platelets 7 K at [facility]. Patient has not received medical care in the last 5 years, so not sure what is his baseline. Imaging at OSH with evidence of hepatosplenomegaly. Stool guaiac positive at OSH. Reportedly patient was having black tarry stool prior to presenting to the hospital. Review of smear showed toxic granulocytes, rare schistocytes, marcelino cell, rouleaux [ likely due to increased fibrinogen ]. Possible explanations for his acute thrombocytopenia is likely increased consumption from acute illnesses/sepsis, ITP, ?GI bleed, drug-induced thrombocytopenia. Coagulation screening not suggestive of DIC. Not concerned for TTP given he he is not hemolyzing. Less concerned for HLH given weak criteria. Ferritin elevated likely in the setting of inflammation. Likely not HIT, platelet count 7K on presentation. I have low index of suspicion this is a primary bone marrow disorder. 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 Iron panel c/w anemia of chronic disease/inflammation.B12 normal, folate specimen hemolyzed. Hemoglobin 7.3, was 11.6 on admission. Similarly his anemia appears to be multifactorial, mostly anemia of chronic disease, bone marrow suppression related acute illness and even medications. Reticulocyte count inappropriately low. Haptoglobin, indirect bili, reticulocyte count not suggestive of hemolysis though would repeat hemolysis markers. Acute respiratory failure s/p intubation Sepsis [BC+ for BNB, urine+ pneumococcal antigen, ear+ for yeast] Septic cavernous sinus thrombosis Anemia, severe thrombocytopenia Alcohol use disorder, in remission Hyperbilirubinemia, 3.2 09/08/2024, most direct Plan -Would continue IVIG to complete 5 doses [0.4/kilogram] -vancomycin/Zosyn was stopped earlier in the admission. Meropenem can sometimes also lower platelet. -Hold anticoagulation for platelet less than 50K -Continue supportive transfusion for hemoglobin less than 7, platelet less than 20K or 30K with bleeding -Monitor closely, daily CBC with differential, CMP, LDH, haptoglobin, reticulocyte count, indirect bili - Consider Doppler of lower extremity to rule out DVT when clinically stable Continue supportive care as you are Case discussed with Dr. Olivares who is in agreement with above assessment and plan Total time of visit was 35 minutes of which more than 50% was spent counseling and or coordination of care. Subjective Intubated sedated Objective Last Vitals Patient Vitals for the past 24 hrs: BP Temp Temp src Pulse Resp SpO2 09/11/24 1100 (!) 160/76 100.2 ??F (37.9 ??C) -- 99 (!) 23 96 % 09/11/24 1000 (!) 151/70 (!) 100.6 ??F (38.1 ??C) -- 75 (!) 34 96 % 09/11/24 0905 -- -- -- -- -- 96 % 09/11/24 0900 (!) 144/66 -- -- 82 (!) 33 95 % 09/11/24 0800 (!) 141/69 (!) 100.8 ??F (38.2 ??C) -- (!) 127 (!) 48 92 % 09/11/24 0700 (!) 148/69 (!) 100.9 ??F (38.3 ??C) -- 96 (!) 33 94 % 09/11/24 0600 (!) 163/76 (!) 101.3 ??F (38.5 ??C) -- 77 16 92 % 09/11/24 0500 128/60 (!) 101.1 ??F (38.4 ??C) -- 75 14 (!) 90 % 09/11/24 0400 131/63 (!) 100.9 ??F (38.3 ??C) Esophageal 74 (!) 26 93 % 09/11/24 0300 129/59 (!) 100.6 ??F (38.1 ??C) -- 73 (!) 25 92 % 09/11/24 0200 133/61 (!) 100.8 ??F (38.2 ??C) -- 69 (!) 24 94 % 09/11/24 0126 -- -- -- 70 -- 94 % 09/11/24 0100 133/60 (!) 100.9 ??F (38.3 ??C) -- 69 (!) 26 94 % 09/11/24 0000 (!) 145/65 (!) 101.1 ??F (38.4 ??C) Esophageal 69 (!) 25 95 % 09/10/24 2300 (!) 157/70 (!) 101.5 ??F (38.6 ??C) -- 72 16 95 % 09/10/24 2200 (!) 159/72 (!) 101.7 ??F (38.7 ??C) -- 72 14 95 % 09/10/24 2100 (!) 174/77 (!) 101.3 ??F (38.5 ??C) -- 71 15 96 % 09/10/242013 -- -- -- 75 -- 98 % 09/10/24 2000 (!) 154/71 (!) 101.3 ??F (38.5 ??C) Esophageal 80 (!) 35 94 % 09/10/24 1900 (!) 161/74 (!) 100.6 ??F (38.1 ??C) -- 87 (!) 37 95 % 09/10/24 1830 (!) 151/74 100.2 ??F (37.9 ??C) -- 71 15 95 % 09/10/24 1815 -- (!) 100.4 ??F (38 ??C) -- 70 17 94 % 09/10/24 1800 (!) 144/70 100.2 ??F (37.9 ??C) -- 68 14 95 % 09/10/24 1745 -- 100.2 ??F (37.9 ??C) -- 68 14 97 % 09/10/24 1730 (!) 152/69 100.2 ??F (37.9 ??C) -- 67 (!) 21 96 % 09/10/24 1715 -- 100 ??F (37.8 ??C) -- 67 (!) 29 97 % 09/10/24 1700 (!) 144/68 100 ??F (37.8 ??C) -- 65 (!) 28 97 % 09/10/24 1645 139/66 99.9 ??F (37.7 ??C) -- 65 (!) 24 96 % 09/10/24 1605 129/62 99.9 ??F (37.7 ??C) -- 66 15 95 % 09/10/24 1600 129/62 99.9 ??F (37.7 ??C) Esophageal 65 15 95 % 09/10/24 1500 134/63 99.5 ??F (37.5 ??C) -- 66 18 95 % 09/10/24 1445 -- 99.3 ??F (37.4 ??C) -- 79 (!) 32 96 % 09/10/24 1430 (!) 123/58 99.3 ??F (37.4 ??C) -- 70 14 94 % 09/10/24 1415 -- (!) 96.1 ??F (35.6 ??C) -- 78 (!) 21 96 % 09/10/24 1400 (!) 152/69 99.1 ??F (37.3 ??C) -- 84 (!) 49 96 % 09/10/24 1345 -- 99.1 ??F (37.3 ??C) -- 65 19 94 % 09/10/24 1330 (!) 124/58 99.1 ??F (37.3 ??C) -- 63 (!) 32 95 % 09/10/24 1315 -- 99 ??F (37.2 ??C) -- 62 (!) 22 94 % 09/10/24 1300 (!) 122/57 99 ??F (37.2 ??C) -- 62 (!) 26 94 % 09/10/24 1245 -- 99.1 ??F (37.3 ??C) -- 63 (!) 29 95 % 09/10/24 1230 138/63 99.1 ??F (37.3 ??C) -- 62 (!) 24 96 % 09/10/24 1215 -- 99.1 ??F (37.3 ??C) -- 64 (!) 37 95 % 09/10/24 1200 (!) 142/66 99 ??F (37.2 ??C) Esophageal 70 (!) 45 95 % Physical Exam Physical Exam Gen: NAD, intubated sedated Skin: no rashes or jaundice, + bruising HEENT: no icterus Lungs: CTA bilaterally Cards: Regular Rate and Rhythm Abd: soft, non-tender, non-distended; positive bowel sounds Ext: ++ edema Relevant data reviewed Results from last 7 days Lab Units 09/11/24 0010 WHITE BLOOD CELL COUNT Thou/uL 4.8 HEMOGLOBIN g/dL 7.3* HEMATOCRIT % 21.9* PLATELET COUNT Thou/uL 48* Results from last 7 days Lab Units 09/11/24 0010 SODIUM mmol/L 149* POTASSIUM mmol/L 4.9 CHLORIDE mmol/L 118* CO2 mmol/L 26 BUN mg/dL 67* CREATININE mg/dL 1.1 Results from last 7 days Lab Units 09/08/24 1215 AST U/L 48 ALT U/L 20 LACTATE DEHYDROGENASE (LDH) U/L 436* ALK PHOS U/L 66 Imaging XR Chest 1 view-Portable Result Date: 09/11/2024 Unchanged diffuse bilateral interstitial and alveolar opacification. XR Chest 1 view-Portable Result Date: 09/10/2024 Mild interval improvement in bilateral airspace opacities. CT Head w/o contrast Result Date: 09/08/[address] evidence of acute territorial infarction or acute intracanal hemorrhage. Limited evaluation of the brainstem. Please note, CT is not sensitive to take small acute ischemic infarct. MR of thebrain without contrast is recommended for further assessment. 2. Mild to moderate chronic white matter small as ischemic changes. XR Chest 1 view-Portable Result Date: 09/08/2024 1. Markedly worsened diffuse bilateral interstitial and airspace opacification involving the entirelungs bilaterally. 2. Heart and mediastinum are widened, this is exaggerated by AP technique and unchanged. Sign Loyda Lilly APRN 09/11/2024 11:51 AM * Isabella Sutton OT - 09/11/2024 9:15 AM EDT 09/11/24 0915 OT Time and Intention OT Follow-Up Visit medically inappropriate OT orders received and appreciated however per discussion with nursing staff pt is sedated and unable to follow commands for participation with eval. Will attempt to follow up with pt for OT IE as medically appropriate. * Denis Guzman, PT - 09/11/2024 8:05 AM EDT Physical Therapy Contact Note Chart reviewed prior to attempted Physical Therapy evaluation. Patient is medically appropriate forPT evaluation on this date. Spoke with PT during B11i safety rounds, who reports that pt is currently intubated and on heavy sedation 2/2 agitation and restlessness, and unable to follow commands. Will follow up for PT evaluation as appropriate. Flowsheet Data 09/11/24 0805 Physical Therapy Time and Intention PT Follow-Up Visit medically inappropriate Mode of Treatment individual therapy;physical therapy Sign: Denis Gumzan PT * Mo Dickens MD - 09/11/2024 6:15 AM EDT Images from the original note were not included. Division of Pulmonary, Critical Care, and Sleep Medicine [address] [facility], [address], [place] [address] Critical Care Progress Note Assessment 63 y.o. male with hx of Etoh use admitted on 09/07/2024 for eye swelling (admitted to OSH on 09/06/24). Course c/b thrombocytopenia, sepsis, respiratory failure - tx to HH on 09/07/24. Intubated on 09/08/24. Active Problems: Acute metabolic encephalopathy Cavernous sinus thrombosis Acute hypoxic respiratory failure Diffuse alveolar hemorrhage R otitis media Pulmonary edema Volume overload Hypoalbuminemia Thrombocytopenia Sepsis SIRS ARDS Lactic acidosis SVT Shock Hypotension Leukocytosis Total LOS: 4 days Overnight Agitation overnight Precedex stopped for fevers Dilaudid gtt Prop held for elevated TG Versed prn Plan by System I performed rounds on the medical unit with the entire critical care team and we discussed the events below while developing the daily treatment plan: Neuro: CAM-ICU Delirium Present: Positive Dwyer Agitation Sedation Scale (RASS) / Modified RASS: +1-->restless CTB/MRI-B at OSH showing cavernous sinus thrombosis Neuro consulted, appreciate recs Sedated currently on Propofol gtt and Dilaudid, monitoring TGs Start seroquel - EKG ok Palliative care consult pending clinical trajectory Nicotine patch SW consulted for help with HCR (daughter next of kin but estranged 30 years; mom and sister in chart) Cannot anticoagulate for cavernous sinus thrombosis due to DAH and life threatening hypoxemic respiratory failure Per ophtho, left vision loss maybe likely to thrombosis disrupting blood-flow or involvement of theorbital apex or posterior ischemic optic neuropathy given unremarkable fundus exam, normal IOP (22)and non-edematous optic nerve Neuro to review with IR - no thrombosis seen on MRV per neuro IR Continue ciprodex drops for right ear, ear wick in place Resp: Ventilator Start 09/08/24 0935 (Active) Number of days: 3 Ventilation Mode (Drager V500): PC-AC Rate Set (breaths/min) (Drager V500): 14 Pressure Set (cmH2O): 20 Oxygen Concentration (%) (Drager V500): 40 PEEP (cmH2O) (Drager V500): 6 Diffuse alveolar hemorrhage with serial bloody BALs on Bronch 09/08/24 - Vent Management: - Daily SBT-SAT if meets criteria from protocol - lung protective ventilation TV 6-8cc/kg ideal body wt - maintain plt pressure <30 and driving pressure <15 if able, but also assure adequate ventilation - Wean vent settings as tolerated - minimal act - vasculitis labs - anti-gbm - SLE labs - RA labs - Diuresis to optimize respiratory status - taper steroids CT chest does show significant findings of diffuse haziness throughout both lungs consistent with diffuse alveolar hemorrhage CV: Hemodynamics adequate Severe Aortic stenosis - cards consult - diuresis today, slight negative 500cc due to the severe aortic stenosis MAP goal 65 GI: Cont tube feeds Bowel regimen PPI Trend Hgb and transfuse as needed - no signs of bleeding >Nutrition: Diet/Nutrition Received: NPO, tube feeding Diet, Tube Feeding, No Tray Continuous; OG Tube; Osmolite 1.5; 20 mL; 60 mL/hr; Water; Every 4 hours; 300cc; NPO Renal: Monitor I/Os, Bicarb, Cr. Replete electrolytes as needed FWF >Intake & Output Intake/Output Summary (Last 24 hours) at 09/11/2024 0615 Last data filed at 09/11/2024 0600 Gross per 24 hour Intake 3848.85 ml Output 2650 ml Net 1198.85 ml I/O last 3 completed shifts: In: 5128 [I.V.:843; Blood:315; NG/GT:3220; IV Piggyback:750] Out: 2820 [Urine:2820] Endo: Monitor BG SUZE Start low dose lantus Heme/Onc: Thrombocytopenia - possible ITP Now on IVIG for 5 days Check hemolysis labs, DIC labs, Ferritin Cannot anticoagulate right now but when plt >50 can start dvt ppx Hematology on board ID: Sepsis Pulmonary/ENT infection Dr. Michaud consulted Follow-up cx - gram neg rods on R ear culture On meropenem Acetic acid >Antibiotics: Anti-infectives (From admission, onward) Start Dose/Rate Route Frequency Ordered Stop 09/08/24 1700 meropenem (MERREM) 1 g in sodium chloride-MBP (NS) 100 mL IVPB-MBP 1 g 33.3 mL/hr over 3 Hours Intravenous Every 8 hours 09/08/24 1640 >Recent Cultures: Culture Date Value Ref Range Status 09/08/2024 Negative after 2 days Final 09/08/2024 Negative after 2 days Preliminary 09/07/2024 (A) Preliminary Yeast If further work-up is clinically indicated, contact Microbiology laboratory. (Isolate held for 5 days). 09/07/2024 Bordetella species (A) Preliminary 09/07/2024 Mixed normal karin Preliminary ICU Checklist Drips: HYDROmorphone, 2 mg/hr, Last Rate: 2 mg/hr (09/11/24 0600) Lines: Peripheral IV - Single Lumen (Adult) 09/07/24 1600 median vein (underside of arm), right 20 gauge (Active) Number of days: 4 Peripheral IV - Single Lumen (Adult) 09/07/24 2200 median vein (underside of arm), right 20 gauge (Active) Number of days: 4 Peripheral IV - Single Lumen (Adult) 09/08/24 1613 cephalic vein (lateral side of arm), left 20 gauge;1 in length (Active) Number of days: 3 Restraints: Restraint Type: Unlocked Unlocked Bilateral Wrist (NV): continued Behaviors Observed: pulling at lines/tubes Mobility: Progressive Mobility Level Achieved: Level 0 Early: Urethral Catheter (Adult) 09/07/24 2200 10 mL balloon inflation volume (Active) Number of days: 4 GI Prophylaxis (if needed): PPI DVT Prophylaxis: SCD Use: Device is properly applied and functional, SCD IMPROVE SCORE: Stepdown / ICU / CCU Stay: 1-->Stepdown / ICU / CCU stay Age > 60 yrs: 1--> Age > 60 years IMPROVE SCORE: 2 Code Status and Disposition CODE STATUS: Full Code DISPOSITION: ICU I spent 31 minutes of Critical Care time in multiple visits throughout the day for collaboration/coordination of care exclusive of time spent performing separately billable medical procedures. I affirm that this patient is critically ill and at high risk for sudden, fatal deterioration due to one or more of the above active issues. I managed/supervised life- or organ-supporting interventions that require frequent physician assessment and reassessment. Critical care time was spent, but not limited to, the review of laboratory test results, medications, relevant radiology and discussing this critically ill patient's care with other medical staff in the unit or at the nursing station onthe floor where the patient is located. My full attention was given to the management of this patient and I was immediately available during this same time. Objective SpO2:92 %,O2 Device: ventilator, , Oxygen Concentration (%): 40 Oxygen Concentration (%) (Drager V500): 40 Temp Last 24 hrs: Temp Min: 96.1 ??F (35.6 ??C) Max: 101.7 ??F (38.7 ??C) WBC Trend White Blood Cell Count Date Value Ref Range Status 09/11/2024 4.8 4.0 - 11.0 Thou/uL Final 09/10/2024 5.8 4.0 - 11.0 Thou/uL Final 09/09/2024 7.7 4.0 - 11.0 Thou/uL Final 09/09/2024 10.7 4.0 - 11.0 Thou/uL Final Last Vitals: Pulse:77, Resp:16, BP:BP Min: 128/60 Max: 174/77 MAP: 86 mm Hg Physical Exam: General: Sedated, some agitation, intubated, appears stated age and not cooperative HEENT: supple without LAD Lungs: clear to auscultation bilaterally Heart: regular rate and rhythm, S1, S2 normal, no murmur, click, rub or gallop Abdomen: soft, non-tender; bowel sounds normal; no masses, no organomegaly Extremities: atraumatic, no cyanosis or edema I reviewed the prescribed Medications and new Laboratory Blood Work I reviewed all new Imaging Studies (actual images) and compared to prior where applicable Sign: Mo Dickens MD 09/11/2024 6:15 AM * Marie Chamberlain PA-C - 09/11/2024 5:58 AM EDT Critical Care Progress Note Subjective Overnight events: - continues to be agitated; stopped precedex gtt for fevers - went up on dilaudid gtt to 2 - started on versed PRN with good effect Assessment & Plan Assessment: Mariah Masterson is a 63 year old male with PMHx of depression, alcohol abuse, tobacco use who presented to OSH for concern of left eye swelling and right ear pain. He was ultimately transferred to for ENT, ophthalmology, ID, neuro consults. He was admitted for further management of cavernous sinus thrombosis with course complicated by worsening hypoxia with concern for DAH in the setting of ARDS. 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) - Mental status: intermittently agitated at times, not following commands - Continue with dilaudid gtt @ 2mg/hr(increased overnight from 1mg/hr) - weaned off propofol last night; triglycerides 531 (363) -s/p precedex gtt (turned off for fevers) - continue with dilaudid 2mg IV q2h PRN (1x overnight) - S/p versed 2mg IV x3 overnight - can start ketamine gtt for worsening agitation - start seroquel 25/25/50 - tylenol 650mg q6h PRN for fevers - Continue with nicotine patch - active smoker - Holding home paroxetine and risperidone - SW consulted for help with HCR (daughter next of kin but estranged 30 years; mom and sister in chart) - patient had CT head, brain MRI and head/brain venography at OSH; significant findings as below - neuro consulted for cavernous sinus thrombosis; continue with IV abx; anticoagulation typically mainstay of treatment but cannot be started secondary to thrombocytopenia - Neuro to review with IR - no thrombosis seen on MRV per neuro IR - repeat CT head w/o contrast ordered given change in mental status overnight CT Head 09/08: 1. No CT evidence of acute territorial infarction or acute intracanal hemorrhage. Limited evaluation of the brainstem. Please note, CT is not sensitive to take small acute ischemic infarct. MR of the brain without contrast is recommended for further assessment. 2. Mild to moderate chronic white matter small as ischemic changes. CT Head at OSH CT head with abnormal findings in the right mastoid air cells, middle and external ear. Favor otitis media, externa with soft tissue asp status and mastoiditis. MRV at OSH with normal flow related enhancement in the major cortical and dural venous sinuses. CT A/P with hepatosplenomegaly, distended gallbladder, thickening of the adrenal glands, bilateral perinephric stranding, distended stomach with air- fluid level. MRI Brain (at OSH): 1. Abnormalities of the left orbit including mild enlargement of the extraocular muscles, mild edema throughout the intra and extra conal fat, loss of the normal flow-void of the superior ophthalmic vein, mild enlargement of the left superior ophthalmic vein, minimal left lobe proptosis and left preseptal soft tissue edema. There may be thrombosis of the left superior ophthalmic vein. These findings all highly suggest left cavernous sinus thrombosis. 2. Right mastoid tympanic space effusion andcerumen impaction in the right external auditory canal. 3. Edema and swelling throughout the right temporalis muscle and involving the right > left muscles of mastication of uncertain etiology, direct extension of right mastoiditis is a consideration as is right cavernous sinus thrombosis. 4. High signal within the right sphenoid parietal sinus is also present suggesting thrombosis. ENT: Left eye swelling, right sided otitis externa and media, right quaker swelling - Patient with improvement in left eye swelling - Ophthalmology consulted, given no light perception in left eye, poor visual prognosis; no acute interventions recommended to help with left eye vision - No evidence of right eye involvement - Per ophtho, left vision loss maybe likely to thrombosis disrupting blood-flow or involvement of the orbital apex or posterior ischemic optic neuropathy given unremarkable fundus exam, normal IOP (22) and non-edematous optic nerve - Pt stated he has hx of chronic right ear pain and will often instill hydrogen peroxide and clean out ear with qtip - ENT consulted, no surgical intervention at this time, keep ear wick in place - CT IAC with contrast - read pending - Continue on acetic acid for ear culture growing yeast - No clinical evidence of mastoiditis -s/p ciprodex drops for ear infection Behavioral/Sedation scales CAM-ICU Delirium Present: Positive Dwyer Agitation Sedation Scale (RASS) / Modified RASS: +1-->restless Resp: Hypoxia with concern for diffuse alveolar hemorrhage in the setting of ARDS - SpO2 >90% on vent settings below - PC-AC RR 14 PS 20 FiO2 40% PEEP 6 - intubated on 09/08 - bronchoscopy on 09/08; findings consistent with DAH; cultures negative to date - labs sent for DAH workup (anti-GBM, lupus w/ reflex, RF, CCP Ab, dsDNA, complement C3, C4, ANCA, myeloperoxidase Ab, proteinase-3 Ab) - SBT as tolerated - VBG (09/09) 7.29/52 - ABG(09/08) - 7.3/50/229 - mixed venous 86.1 (83.5) - proBNP 3,773 (5786) - S/p pulse dose steroids for 3 days (250mg q6h); transition to 40mg q6h - CT Thorax read pending -s/p Lasix on 09/07 and 09/08 CXR 09/08: Mild interval improvement in bilateral airspace opacities. CXR(09/07) 1. Markedly worsened diffuse bilateral interstitial and airspace opacification involving the entire lungs bilaterally. 2. Heart and mediastinum are widened, this is exaggerated by AP technique and unchanged. CV: Resolved non- sustained VT at outside hospital, currently no acute issues - SBP 110s-170s HR 60s-80s - HS trop 22 - ECG 09/08 NSR RBBB QTC 505 - ECHO with severe aortic stenosis, will consult cardiology - Ifeanyi with Lasix 40 IV ECHO 09/11/24: Left ventricular systolic function is hyperdynamic. The quantitative EF by 2D Stark biplane is 80%. Right ventricular systolic function is normal. There is likely severe aortic stenosis based on gradients and velocities. The continuity derived aortic valve area is less reliable in the setting of poor spectral signal. The peak velocity is 4.3 m/s and mean gradient is 45.7 mmHg. There is progressive calcific mitral stenosis. There is a mean transmitral gradient of 5 mmHg at a heart rate of 81 bpm. There is no previous study for comparison in our system. ECHO at OSH - Hyperdynamic LVEF greater than 70% with impaired relaxation filling pattern. At least moderately dilated left atrium. Calcified aortic valve changes noted with mean gradient of 32 mmHg with a calculated valve area in mild stenosis range suggestive of overall probably increase flow through the aortic valve due to higher stroke volume. Calcific mitral valve changes noted with possible mild mitral stenosis. Mildly dilated ascending aorta 3.7cm. No gross pericardial effusion. GI: Resolved Lactic acidosis - Diet: TF via OGT - Lactic acid 1.9 (5.1 at OSH) - Tbili 3.2(2.6) Dbili2.4( 1.9) AST/ALT and alk phos WNL - CT A/P at OSH with hepatosplenomegaly, distended gallbladder, thickening of the adrenal glands, bilateral perinephric stranding, distended stomach with air- fluid level. - 0 BM/24hrs - will increase senna to BID and add miralax BID Renal: CLINT (improving) - BUN/Cr 67/1.1 (76/1.1) (84/1.6) - Na 149 (149) - increased FWF to 300cc q4h overnight - K 4.9 (4.9) - Mag 3.3 (3.4) - phos 2.8 (3.7) - early placed for retention and now CLINT - UOP 2.6L / 24hrs; net +1.1L / 24hrs +3.8L / LOS - received fluids (sepsis bolus) and albumin at OSH Early: yes Early indication: Urinary Retention Intake & Output Intake/Output Summary (Last 24 hours) at 09/11/2024 0558 Last data filed at 09/11/2024 0500 Gross per 24 hour Intake 3849.35 ml Output 2480 ml Net 1369.35 ml Endo: No active issues - BG 140s-200s - check FS q4h while on TF - Continue SUZE - hypoglycemia protocol - TSH 0.80 Heme/Onc: Anemia, Thrombocytopenia - H/H 7.3/21.9 (7.9/23.5) - Plt 48 (28) - s/p 3 plt, s/p 2 plt at OSH - Plt goal >30 - PT 14.4 PTT 27 - INR 1.3 - fibrinogen 579 (550) - thrombin time 12.2 - Duplex LE with no DVT; upper extremity duplex ordered and pending - chemical ppx contraindicated with low plt count - will add SCD for DVT ppx - Heme Onc following - 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 Findings are not consistent with the presence of deep vein thrombosisbilaterally. ID: Resolved leukocytosis, possible PNA, HEENT infection - Tmax 101.7, WBC 4.8 (5.8) - UA at OSH positive for nitrites and trace LE no bacteria - right ear culture pending at OSH - right ear culture(09/07) - yeast bordetella species - blood cx OSH - GNR - blood cultures (09/07) no growth to date - bronch cultures (09/08) no growth to date - MRSA swab (09/07) negative - fluvid negative - legionella prelim negative - urine strep presumptive positive - PJP pending - Dr. Michaud following - continue meropenem - s/p vanco, zosyn and ceftriaxone at OSH Vascular access: PIV IV access Mobility: Progressive Mobility Level Achieved: Level 0,PT/OT: Yes GI PPx: none DVT PPx: PAS VTE Risk Assessment VTE Time Out IMPROVE SCORE: 2 (09/07/2024 5:40 PM) Interpretation - High Risk Chemical Prophylaxis Chemical VTE prophylaxis NOT ordered. Click here to order if appropriate Chemical Prophylaxis Contraindication: Yes, secondary to Thrombocytopenia (Platelet count less than50,000) Mechanical Prophylaxis SCDs are ordered - Bilateral (Knee High) Mechanical VTE prophylaxis NOT ordered. Click here to order if appropriate Mechanical Prophylaxis Contraindication: Yes, secondary to Other (Please Specify): thrombocytopenia Drips: HYDROmorphone, 2 mg/hr, Last Rate: 2 mg/hr (09/11/24 0500) Lines: Peripheral IV - Single Lumen (Adult) 09/07/24 1600 median vein (underside of arm), right 20 gauge (Active) Number of days: 4 Peripheral IV - Single Lumen (Adult) 09/07/24 2200 median vein (underside of arm), right 20 gauge (Active) Number of days: 4 Peripheral IV - Single Lumen (Adult) 09/08/24 1613 cephalic vein (lateral side of arm), left 20 gauge;1 in length (Active) Number of days: 3 Enteric Access and Early: Naso/Orogastric Tube (Adult) 09/08/24 1100 Hancock sump 18 Fr mouth, center (Active) Number of days: 3 Urethral Catheter (Adult) 09/07/24 2200 10 mL balloon inflation volume (Active) Number of days: 4 Restraints: soft wrists, mitts, ankles Interference with medical treatment Code: FULL Dispo: ICU, per Dr. Gallegos Objective Last Vitals: Pulse:75, Resp:14, BP:BP Min: 128/60 Max: 174/77 MAP: 86 mm Hg SpO2:(!) 90 % CVP: Temp Last 24 hrs: Temp Min: 96.1 ??F (35.6 ??C) Max: 101.7 ??F (38.7 ??C) Physical Exam: General appearance: adult male, laying in bed, sedated HEENT: left eye with improvement in swelling, no light perception; no right eye involvement Lungs: coarse and diminished lung sounds throughout bilaterally Heart: tachycardic, normal rhythm Abdomen: hypoactive bowel sounds, abdomen soft, non-tender non-distended Extremities: no edema to lower or upper extremities Neurologic: intermittently agitated, not following commands Labs: Recent Labs 09/08/24 1215 09/08/24 2309 09/09/24 0549 09/09/24 1222 09/09/24 2355 09/10/24 1209 09/11/24 0010 WBC -- 12.1* -- 10.7 7.7 5.8 4.8 HGB -- 7.9* 7.8* 8.1* 7.6* 7.9* 7.3* HCT -- 23.3* 23.0* 24.2* 23.6* 23.5* 21.9* PLT 16* 42* -- 35* 30* 28* 48* MCV -- 93 -- 92 96 93 96 MCH -- 31.5* -- 30.9 30.9 31.3* 32.0* MCHC -- 33.9 -- 33.5 32.2 33.6 33.3 RDW -- 14.5 -- 14.7* 14.6* 14.6* 14.3 Recent Labs 09/08/24 1215 09/08/24 1223 09/08/24 1609 09/08/24 2309 09/08/24 2309 09/09/24 1222 09/09/24 2355 09/10/24 1209 09/11/24 0010 BUN -- -- -- 70* -- 85* 84* 76* 67* CREAT -- -- -- 1.4* -- 1.6* 1.6* 1.2 1.1 NA -- -- -- 146* -- 144 146* 149* 149* K -- -- -- 4.9 -- 4.8 4.9 4.9 4.9 CO2 -- 23 24 26 22 -- 20* 24 24 26 CL -- -- -- 115* -- 115* 116* 118* 118* MG -- -- -- 3.1* -- 3.3* 3.5* 3.4* 3.3* PHOS -- -- -- 4.9* < > 5.0* 4.5 3.7 2.8 AST 48 -- -- -- -- -- -- -- -- ALT 20 -- -- -- -- -- -- -- -- PROT 5.2* -- -- -- -- -- -- -- -- < > = values in this interval not displayed. No results for input(s): PT , PTT , INR in the last 72 hours. Medications Medication/MAR Report: Medications Scheduled Medication Ordered Dose/Rate, Route, Frequency Last Action chlorhexidine (PERIDEX) 0.12 % oral solution 15 mL 15 mL, MT, BID Given, 15 mL at 09/10 2001 chlorhexidine gluconate 2 % wipes - urethral catheter CHG application No Dose/Rate, TOP, Daily Given, 1 each at 09/10 1805 hydrocortisone-acetic acid (VOSOL-HC) 1-2 % otic solution 4 drop 4 drop, RIGHT EAR, BID Given, 4 drop at 09/11 2007 insulin lispro (HumaLOG/ADMELOG) 100 units/mL injection 3-11 Units 3-11 Units, SC, Q4H ZO Given, 4 Units at 09/11 0420 meropenem (MERREM) 1 g in sodium chloride-MBP (NS) 100 mL IVPB-MBP 1 g, IV, Q8H New Bag, 1 g at 09/11 001 methylPREDNISolone sodium succinate (SOLU-Medrol) injection 250 mg 250 mg, IV, Q6H ZO Given, 250 mg at 09/11 001 nicotine (NICODERM CQ) 21 MG/24HR patch 1 patch 1 patch, TD, Daily Patch Applied, 1 patch at 09/10 0809 senna-docusate (SENNA-S) 8.6-50 MG tablet 2 tablet 2 tablet, PER OG TUBE, Nightly Given, 2 tablet at 09/11 2007 Continuous Medication Ordered Dose/Rate, Route, Frequency Last Action HYDROmorphone (DILAUDID) IV infusion 50 mg in 50 mL NS (1 mg/mL) (premix) 2 mg/hr, IV, Continuous Rate/Dose Verify, 2 mg/hr at 09/11 0500 PRN Medication Ordered Dose/Rate, Route, Frequency Last Action bisacodyl (DULCOLAX) suppository 10 mg 10 mg, RE, Daily PRN Ordered dextrose 50 % solution 12.5 g (Or Linked Group #1) 12.5 g, IV, Q15 Min PRN Ordered dextrose 50 % solution 12.5 g (Or Linked Group #2) 12.5 g, IV, Q15 Min PRN Ordered dextrose 50 % solution 25 g (Or Linked Group #1) 25 g, IV, Q15 Min PRN Ordered dextrose 50 % solution 25 g (Or Linked Group #2) 25 g, IV, Q15 Min PRN Ordered glucagon (GLUCAGEN) injection 1 mg (Or Linked Group #1) 1 mg, IM, Daily PRN Ordered glucagon (GLUCAGEN) injection 1 mg (Or Linked Group #2) 1 mg, IM, Daily PRN Ordered glucose (GLUTOSE 15) 40 % oral gel 37.5 g (Or Linked Group #1) 1 Tube, PO, Q15 Min PRN Ordered glucose (GLUTOSE 15) 40 % oral gel 37.5 g (Or Linked Group #2) 1 Tube, PO, Q15 Min PRN Ordered glucose (GLUTOSE 15) 40 % oral gel 75 g (Or Linked Group #1) 2 Tube, PO, Q15 Min PRN Ordered glucose (GLUTOSE 15) 40 % oral gel 75 g (Or Linked Group #2) 2 Tube, PO, Q15 Min PRN Ordered HYDROmorphone (DILAUDID) 2 mg/mL injection 2 mg 2 mg, IV, Q2H PRN Given, 2 mg at 09/11 0408 lactulose (ENULOSE) 10 gm/15 mL solution 20 g 30 mL, PER OG TUBE, Q4H PRN Ordered midazolam (VERSED) 2 mg/2 mL injection 2 mg 2 mg, IV, Q4H PRN Given, 2 mg at 09/11 0435 naloxone (NARCAN) 0.4 mg/mL injection 0.4 mg 0.4 mg, IV, Q5 Min PRN Ordered Sign: Marie Chamberlain PA-C 09/11/2024 5:58 AM * Pierre Michaud MD - 09/10/2024 12:37 PM EDT [facility] Progress Note Assessment & Plan Assessment Alcohol use disorder in remission for 15 years Tobacco use disorder with a [id number] history Presenting with altered mental status, left eye swelling, tongue swelling and severe right ear pain MRIs were done and the patient was sent down here It looks like he has a cavernous sinus thrombosis. He has gram-negative's in his blood He has bilateral whiteout of his lungs He had a bronchoscopy done yesterday. Bronchoscopy is negative so far Urine pneumococcal antigen is positive Ear culture is pending but so far showing yeast which I do not believe is significant here Temperature is 100.4 with a white count of 7.7 and creatinine of 1.6 Currently on meropenem I spoke with [facility] today. His blood culture has 4 different anaerobic gram-negative rods. His ear culture has mixed karin. Plan He continues on meropenem. We can leave that for now Subjective He is on the ventilator Objective Last Vitals Pulse:70,Resp:(!) 45,BP:(!) 142/66,SpO2:95 %,Weight:97.3 kg (214 lb 8.1 oz) Temp Last 24 hrs: Temp Min: 97.2 ??F (36.2 ??C) Max: 100.4 ??F (38 ??C) Last temp: 99 ??F (37.2 ??C) (Esophageal) Physical Exam Lungs: Clear Cardiac: RRR Abdomen: +BS Soft Nontender Skin:No rash No skin lesions Anti-infectives (From admission, onward) Start Dose/Rate Route Frequency Ordered Stop 09/08/24 1700 meropenem (MERREM) 1 g in sodium chloride-MBP (NS) 100 mL IVPB-MBP 1 g 33.3 mL/hr over 3 Hours Intravenous Every 8 hours 09/08/24 1640 Intake/Output Summary (Last 24 hours) at 09/10/2024 1237 Last data filed at 09/10/2024 1200 Gross per 24 hour Intake 2993.33 ml Output 2130 ml Net 863.33 ml Relevant data reviewed MEDICATIONS Current Facility-Administered Medications Medication Dose Route Frequency Provider Last Rate Last Admin bisacodyl (DULCOLAX) suppository 10 mg 10 mg Rectal Daily PRN Marie Chamberlain PA-C chlorhexidine (PERIDEX) 0.12 % oral solution 15 mL 15 mL Mouth/Throat BID Korina Lai PA-C 15 mL at 09/10/24 0807 chlorhexidine gluconate 2 % wipes - urethral catheter CHG application Topical Daily Nanci Guerra PA-C 1 each at 09/09/24 1749 glucose (GLUTOSE 15) 40 % oral gel 37.5 g 1 Tube Oral Q15 Min PRN Marie Chamberlain PA-C Or glucose (GLUTOSE 15) 40 % oral gel 75 g 2 Tube Oral Q15 Min PRN Marie Chamberlain PA-C Or dextrose 50 % solution 12.5 g 12.5 g Intravenous Q15 Min PRN Marie Chamberlain PA-C Or dextrose 50 % solution 25 g 25 g Intravenous Q15 Min PRN Marie Chamberlain PA-C Or glucagon (GLUCAGEN) injection 1 mg 1 mg Intramuscular Daily PRN Marie Chamberlain PA-C glucose (GLUTOSE 15) 40 % oral gel 37.5 g 1 Tube Oral Q15 Min PRN KRISTA Hobbs Or glucose (GLUTOSE 15) 40 % oral gel 75 g 2 Tube Oral Q15 Min PRN KRISTA Hobbs Or dextrose 50 % solution 12.5 g 12.5 g Intravenous Q15 Min PRN KRISTA Hobbs Or dextrose 50 % solution 25 g 25 g Intravenous Q15 Min PRN KRISTA Hobbs Or glucagon (GLUCAGEN) injection 1 mg 1 mg Intramuscular Daily PRN KRISTA Hobbs hydrocortisone-acetic acid (VOSOL-HC) 1-2 % otic solution 4 drop 4 drop Right Ear BID Lucia Barnes MD 4 drop at 09/10/24 1208 HYDROmorphone (DILAUDID) injection 1 mg 1 mg Intravenous Q3H PRN Marie Chamberlain PA-C 1 mg at 09/10/24 0804 HYDROmorphone (DILAUDID) IV infusion 50 mg in 50 mL NS (1 mg/mL) (premix) 1 mg/hr Intravenous Continuous KRISTA Magallon 1 mL/hr at 09/10/24 1200 1 mg/hr at 09/10/24 1200 immune globulin (human) 10% in Solution (PRIVIGEN) IV Premix 20 g 20 g Intravenous Q24H KRISTA Pemberton 20 g at 09/09/24 194 And immune globulin (human) 10% in Solution (PRIVIGEN) IV Premix 10 g 10 g Intravenous Q24H KRISTA Pemberton 10 g at 09/09/242235 And immune globulin (human) 10% in Solution (PRIVIGEN) IV Premix 5 g 5 g Intravenous Q24H KRISTA Hobbs 5 g at 09/10/24 0000 insulin lispro (HumaLOG/ADMELOG) 100 units/mL injection 3-11 Units 3-11 Units Subcutaneous Q4H [facility] KRISTA Hobbs 6 Units at 09/10/24 1220 lactulose (ENULOSE) 10 gm/15 mL solution 20 g 30 mL OG Tube Q4H PRN Marie Chamberlain PA-C meropenem (MERREM) 1 g in sodium chloride-MBP (NS) 100 mL IVPB-MBP 1 g Intravenous Q8H Marie Chamberlain PA-C 33.3 mL/hr at 09/10/24 0807 1 g at 09/10/24 0807 methylPREDNISolone sodium succinate (SOLU-Medrol) injection 250 mg 250 mg Intravenous Q6H [facility] Marie Chamberlain PA-C 250 mg at 09/10/24 1208 naloxone (NARCAN) 0.4 mg/mL injection 0.4 mg 0.4 mg Intravenous Q5 Min PRN Marie Chamberlain PA-C nicotine (NICODERM CQ) 21 MG/24HR patch 1 patch 1 patch Transdermal Daily KRISTA Bedolla 1patch at 09/10/24 0809 propofol (diPRIvan) 1000 MG/100ML injection 5-75 mcg/kg/min Intravenous Titrated Marie Chamberlain PA-C 11.5 mL/hr at 09/10/24 1207 20 mcg/kg/min at 09/10/24 1207 senna-docusate (SENNA-S) 8.6-50 MG tablet 2 tablet 2 tablet OG Tube Nightly Marie Chamberlain PA-C 2 tablet at 09/09/241947 Notable labs are: Lab Results Component Value Date WBC 7.7 09/09/2024 HGB 7.6 (L) 09/09/2024 HCT 23.6 (L) 09/09/2024 PLT 30 (L) 09/09/2024 Lab Results Component Value Date AST 48 09/08/2024 ALT 20 09/08/2024 ALKPHOS 66 09/08/2024 BILITOT 3.2 (H) 09/08/2024 BILIDIR 2.4 (H) 09/08/2024 ALBUMIN 2.6 (L) 09/08/2024 PROT 5.2 (L) 09/08/2024 Lab Results Component Value Date CREAT 1.6 (H) 09/09/2024 Blood Cultures: Lab Results Component Value Date CULTURE Negative after 2 days 09/08/2024 CULTURE Negative after 2 days 09/08/2024 Urine Cultures: No results found for: CRYSUA , HYALNCSTUA , UROBILINOGEN , BILIUA , BLOODUA , CLARITYUA , COLORUA , UACOMMENT , GLUCU , KETONESUA , LEUKOCYTESUA , NITRITEUA , PHUA , PROTEINUA , RBCUA , SPECIMEN , SPECGRAVUA , SQEPIUA , WBCUA No components found for: WOUND C. Difficile: No results found for: CDIFFTOX , NAP1 Sign Pierre Michaud MD 09/10/2024 12:37 PM Pierre Michaud * Lucia Barnes MD - 09/10/2024 8:53 AM EDT ENT Progress Note Subjective: Patient remains intubated. Ear culture growing yeast. Objective: Temp: [98.2 ??F (36.8 ??C)-100.4 ??F (38 ??C)] 99.5 ??F (37.5 ??C) Pulse: [71-94] 80 Resp: [10-34] 34 BP: (93-138)/(50-64) 138/61 I/O last 3 completed shifts: In: 4776.5 [I.V.:1023.5; Blood:383; NG/GT:1770; IV Piggyback:1600] Out: 2590 [Urine:2590] Physical Examination: NAD, intubated and sedated Left eye cellulitic changes, edema Right ear with wick in place - removed - on otoscopy, has purulence to medial EAC, edema significantly improved Labs: Lab Results Component Value Date WBC 7.7 09/09/2024 HGB 7.6 (L) 09/09/2024 HCT 23.6 (L) 09/09/2024 MCV 96 09/09/2024 PLT 30 (L) 09/09/2024 Lab Results Component Value Date CALCIUM 7.8 (L) 09/09/2024 NA 146 (H) 09/09/2024 K 4.9 09/09/2024 CO2 24 09/09/2024 CL 116 (H) 09/09/2024 BUN 84 (H) 09/09/2024 Assessment: 63 y.o. male with alcohol and tobacco use history presenting to OSH initially for left eye swellingand right ear pain. He has findings consistent with left sided cavernous sinus thrombosis. Overall,he has no paranasal sinus disease on CT scan and normal nasal endoscopy which makes sinonasal source of infection very unlikely. Would recommend continued management for eye findings per other consulting services. Additionally he has clinical findings consistent with right sided otitis externa and media based onCT scan. There is no clinical evidence of mastoiditis. We do not think this is related to his eye pathology. Culture growing yeast. Wick removed this morning, not replaced. Plan: - we will switch ciprodex otic drops to acetic acid given culture growing yeast, remainder of abx per ID recommendations -Appreciate care per primary team -Follow-up final ear culture -Appreciate ophthalmology recommendations -Please page ENT environmental sampler with any questions or concerns Lucia Barnes MD Otolaryngology Cosigned by Jose Pond MD at 09/10/2024 9:48 AM EDT * Carlotta Harrison RN - 09/10/2024 8:38 AM EDT 09/10/24 0837 Discharge Coordination/Tasks Status Patient/Patient Crepe Maker Provided With Choices Of Facility Preference(s) Facility Preference(s) [facility] in [place] (would like [facility] to be [facility]- [facility] Problem: Adult Inpatient Plan of Care Goal: Readiness for Transition of Care Outcome: Progressing Ongoing Case Management Care Plan Note Summary: CM received an email from sister Julia reporting she had made a mistake with her referral choices and did not want [facility] to be added as a formal referral choice for patient. CM removed [facility]. Julia would like referral placed to [facility] in [place]. Formal referral placed as documented in flowsheet. Recommendation: Discharge to [facility] (vs [facility]- dependent on clinical progression) when medically ready for transition Carlotta Harrison 09/10/2024 8:37 AM * KRISTA Hobbs - 09/10/2024 7:25 AM EDT Critical Care Progress Note Subjective - no issues O/N Assessment & Plan Assessment: Mariah Masterson is a 63 year old male with PMHx of depression, alcohol abuse, tobacco use who presented to OSH for concern of left eye swelling and right ear pain. He was ultimately transferred to for ENT, ophthalmology, ID, neuro consults. He was admitted for further management of cavernous sinus thrombosis with course complicated by worsening hypoxia with concern for ARDS. Principal Problem: Acute cerebral venous sinus thrombosis LOS: 3 days Plan by system Neuro: AMS, agitation, cavernous sinus thrombosis, Hx depression, tobacco use, ETOH use (in remission 15 years) - Continue with dilaudid gtt @ 1mg/hr(increased overnight from 0.5mg/hr) - Wean propofol as tolerated - currently @ 20mcg/kg/hr - check TG and if >500, will need to stop propofol - Continue with nicotine patch - active smoker - Holding home paroxetine and risperidone - consulted for help with HCR (daughter next of kin but estranged 30 years; mom and sister in chart) - patient had CT head, brain MRI and head/brain venography at OSH; significant findings as below - neuro consulted for cavernous sinus thrombosis; continue with IV abx; anticoagulation typically mainstay of treatment but cannot be started secondary to thrombocytopenia - Neuro to review with IR - no thrombosis seen on MRV per neuro IR - repeat CT head w/o contrast ordered given change in mental status overnight CT Head at OSH CT head with abnormal findings in the right mastoid air cells, middle and external ear. Favor otitis media, externa with soft tissue asp status and mastoiditis. MRV at OSH with normal flow related enhancement in the major cortical and dural venous sinuses. CT A/P with hepatosplenomegaly, distended gallbladder, thickening of the adrenal glands, bilateral perinephric stranding, distended stomach with air- fluid level. MRI Brain (at OSH): 1. Abnormalities of the left orbit including mild enlargement of the extraocular muscles, mild edema throughout the intra and extra conal fat, loss of the normal flow-void of the superior ophthalmic vein, mild enlargement of the left superior ophthalmic vein, minimal left lobe proptosis and left preseptal soft tissue edema. There may be thrombosis of the left superior ophthalmic vein. These findings all highly suggest left cavernous sinus thrombosis. 2. Right mastoid tympanic space effusion andcerumen impaction in the right external auditory canal. 3. Edema and swelling throughout the right temporalis muscle and involving the right > left muscles of mastication of uncertain etiology, direct extension of right mastoiditis is a consideration as is right cavernous sinus thrombosis. 4. High signal within the right sphenoid parietal sinus is also present suggesting thrombosis. - CT head(09/08) - 1. No CT evidence of acute territorial infarction or acute intracanal hemorrhage. Limited evaluation of the brainstem. Please note, CT is not sensitive to take small acute ischemic infarct. MR of the brain without contrast is recommended for further assessment. 2. Mild to moderate chronic white matter small as ischemic changes. ENT: Left eye swelling, right sided otitis externa and media, right quaker swelling - Patient with left eye swollen shut - Ophthalmology consulted, given no light perception in left eye, poor visual prognosis; no acute interventions recommended to help with left eye vision - No evidence of right eye involvement - Per ophtho, left vision loss maybe likely to thrombosis disrupting blood-flow or involvement of the orbital apex or posterior ischemic optic neuropathy given unremarkable fundus exam, normal IOP (22) and non-edematous optic nerve - Pt stated he has hx of chronic right ear pain and will often instill hydrogen peroxide and clean out ear with qtip - ENT consulted, no surgical intervention at this time, keep ear wick in place - CT IAC with contrast - read pending - Switch ciprodex drops for right ear to acetic acid due to culture growing yeast - No clinical evidence of mastoiditis Behavioral/Sedation scales CAM-ICU Delirium Present: Positive Dwyer Agitation Sedation Scale (RASS) / Modified RASS: -1-->Wakes easily, drowsy Resp: Hypoxia with concern for ARDS, concern for DAH - intubated on 09/08 - VC/AC rate 16 TV 500 PEEP 6 40% - SBT as tolerated - ABG(09/08) - 7.3/50/229 - mixed venous 83.5 (09/08) - proBNP 3,773(5786) - s/p 40mg IV lasix yesterday - Continue solumedrol 250mg IV q6h - CT Thorax ordered and pending - CXR(09/07) - 1. Markedly worsened diffuse bilateral interstitial and airspace opacification involving the entire lungs bilaterally. 2. Heart and mediastinum are widened, this is exaggerated by AP technique and unchanged. - CXR(09/08) - repeat pending CV: Resolved non- sustained VT at outside hospital, currently no acute issues - SBP 110 - 130s HR 70s - HS trop 22 - ECG 09/08 NSR RBBB QTC 505 ECHO at OSH - Hyperdynamic LVEF greater than 70% with impaired relaxation filling pattern. At least moderately dilated left atrium. Calcified aortic valve changes noted with mean gradient of 32 mmHg with a calculated valve area in mild stenosis range suggestive of overall probably increase flow through the aortic valve due to higher stroke volume. Calcific mitral valve changes noted with possible mild mitral stenosis. Mildly dilated ascending aorta 3.7cm. No gross pericardial effusion. GI: Resolved Lactic acidosis - Diet: TF via OGT - Lactic acid 1.9 (5.1 at OSH) - Tbili 3.2(2.6) Dbili2.4( 1.9) AST/ALT and alk phos WNL - CT A/P at OSH with hepatosplenomegaly, distended gallbladder, thickening of the adrenal glands, bilateral perinephric stranding, distended stomach with air- fluid level. - will monitor for signs of bleeding - 1 BM/24hrs Renal: CLINT - BUN/Cr 84/1.6(70/1.4)(49/1.1) - Na 146(144) - FWF in from 200 to 250cc q4h - check afternoon lytes - early placed for retention and now CLINT - received fluids (sepsis bolus) and albumin at OSH Early: yes Early indication: Urinary Retention Intake & Output Intake/Output Summary (Last 24 hours) at 09/10/2024 0725 Last data filed at 09/10/2024 0700 Gross per 24 hour Intake 2980.48 ml Output 2060 ml Net 920.48 ml Endo: No active issues - BG 110s-160s - check FS q4h while on TF - start SUZE - hypoglycemia protocol - TSH 0.80 Heme/Onc: Anemia, Thrombocytopenia - H/H 7.6/23.6(8.2/24.2) - Plt 30(35) - s/p 2 plt on 09/08, s/p 2 plt at OSH - Plt goal >30 - PT 14.4 PTT 27 - INR 1.3 - fibrinogen 579 (550) - thrombin time 12.2 - RBC morphology at OSH 3+ microcytosis, 3+ marcelino cells, 3+ schistocytes - haptoglobin 137 , LDH 436, reticulocyte 0.4, red blood cell morphology normal - will consult heme for thrombocytopenia - Duplex LE with no DVT; will also get upper extremity duplex - chemical ppx and SCD contraindicated with low plt count - Heme Onc following - concern for secondary ITP due to acute illness/sepsis - started on IVIG yesterday 09/08 and high dose steroids, goal plt >30 Lower Extremity Doppler 09/08/24: Bilaterally, the duplex ultrasound of the lower extremities demonstrates normal Doppler flow with no thrombus seen in patterson scale. Findings are not consistent with the presence of deep vein thrombosisbilaterally. ID: Resolved leukocytosis, possible PNA, HEENT infection - Tmax 100.4, WBC 7.7(10.7) - UA at OSH positive for nitrites and trace LE no bacteria - right ear culture pending at OSH - right ear culture(09/07) - yeast - blood cx OSH - GNR - blood cultures (09/07) prelim sterile - MRSA swab (09/07) negative - fluvid negative - legionella prelim negative - urine strep presumptive positive - PJP pending - Dr. Michaud following - Blood cultures (both sets) at OSH growing GNR. - continue meropenem - s/p vanco, zosyn and ceftriaxone at OSH Vascular access: PIV IV access Mobility: Progressive Mobility Level Achieved: Level 0,PT/OT: Yes GI PPx: none DVT PPx: None, SCDs VTE Risk Assessment VTE Time Out IMPROVE SCORE: 2 (09/07/2024 5:40 PM) Interpretation - High Risk Chemical Prophylaxis Chemical VTE prophylaxis NOT ordered. Click here to order if appropriate Chemical Prophylaxis Contraindication: Yes, secondary to Thrombocytopenia (Platelet count less than50,000) Mechanical Prophylaxis SCDs are ordered - Bilateral (Knee High) Mechanical VTE prophylaxis NOT ordered. Click here to order if appropriate Mechanical Prophylaxis Contraindication: Yes, secondary to Other (Please Specify): thrombocytopenia Drips: HYDROmorphone, 1 mg/hr, Last Rate: 1 mg/hr (09/10/24 0700) propofol, 5-75 mcg/kg/min, Last Rate: 20 mcg/kg/min (09/10/24 0700) Lines: Peripheral IV - Single Lumen (Adult) 09/07/24 1600 median vein (underside of arm), right 20 gauge (Active) Number of days: 3 Peripheral IV - Single Lumen (Adult) 09/07/24 2200 median vein (underside of arm), right 20 gauge (Active) Number of days: 3 Peripheral IV - Single Lumen (Adult) 09/08/24 1613 cephalic vein (lateral side of arm), left 20 gauge;1 in length (Active) Number of days: 2 Enteric Access and Early: Naso/Orogastric Tube (Adult) 09/08/24 1100 Hancock sump 18 Fr mouth, center (Active) Number of days: 2 Urethral Catheter (Adult) 09/07/24 2200 10 mL balloon inflation volume (Active) Number of days: 3 Restraints: soft wrists Interference with medical treatment Code: FULL Dispo: ICU, per Dr. Gallegos Objective Last Vitals: Pulse:71, Resp:17, BP:BP Min: 110/53 Max: 133/64 MAP: 86 mm Hg SpO2:96 % CVP: Temp Last 24 hrs: Temp Min: 98.2 ??F (36.8 ??C) Max: 100.4 ??F (38 ??C) Physical Exam: General appearance: adult male, laying in bed, sedated HEENT: left eye swollen shut, no light perception; right eye involvement. Mild swelling over right quaker region Lungs: coarse and diminished lung sounds throughout bilaterally Heart: tachycardic, normal rhythm no murmurs Abdomen: hypoactive bowel sounds, abdomen soft, non-tender non-distended Extremities: no edema to lower or upper extremities Neurologic: PERRL, patient alert but not following commands Labs: Recent Labs 09/07/24 1636 09/08/24 0117 09/08/24 1215 09/08/24 2309 09/09/24 0549 09/09/24 1222 09/09/24 2355 WBC 16.5* 14.2* -- 12.1* -- 10.7 7.7 HGB 11.6* 10.9* -- 7.9* 7.8* 8.1* 7.6* HCT 33.7* 31.2* -- 23.3* 23.0* 24.2* 23.6* PLT 10* 9* 16* 42* -- 35* 30* MCV 90 89 -- 93 -- 92 96 MCH 30.9 31.2* -- 31.5* -- 30.9 30.9 MCHC 34.4 34.9 -- 33.9 -- 33.5 32.2 RDW 13.4 13.6 -- 14.5 -- 14.7* 14.6* MONOABS 0.3 -- -- -- -- -- -- Recent Labs 09/07/24 1636 09/07/24 2151 09/08/24 0117 09/08/24 1215 09/08/24 1223 09/08/24 1609 09/08/24 2309 09/09/24 1222 09/09/24 2355 BUN 45* -- 49* -- -- -- 70* 85* 84* CREAT 1.0 -- 1.1 -- -- -- 1.4* 1.6* 1.6* NA 141 -- 143 -- -- -- 146* 144 146* K 3.6 -- 4.0 -- -- -- 4.9 4.8 4.9 CO2 21* 22 20* -- 23 24 26 22 20* 24 CL 109* -- 112* -- -- -- 115* 115* 116* MG 2.3 -- 2.5 -- -- -- 3.1* 3.3* 3.5* PHOS 3.3 -- 3.2 -- -- -- 4.9* 5.0* 4.5 AST 43 -- -- 48 -- -- -- -- -- ALT 18 -- -- 20 -- -- -- -- -- PROT 5.2* -- -- 5.2* -- -- -- -- -- Recent Labs 09/07/24 1703 09/08/24 0132 PTT 30 27 INR 1.3 1.3 Medications Medication/MAR Report: Medications Scheduled Medication Ordered Dose/Rate, Route, Frequency Last Action chlorhexidine (PERIDEX) 0.12 % oral solution 15 mL 15 mL, MT, BID Given, 15 mL at 09/09 1950 chlorhexidine gluconate 2 % wipes - urethral catheter CHG application No Dose/Rate, TOP, Daily Given, 1 each at 09/09 174 ciprofloxacin-dexAMETHasone (CIPRODEX) 0.3-0.1 % otic suspension 4 drop 4 drop, RIGHT EAR, BID Given, 4 drop at 09/09 2036 immune globulin (human) 10% in Solution (PRIVIGEN) IV Premix 10 g (And Linked Group #1) 10 g, IV, Q24H New Bag, 10 g at 09/10 2235 immune globulin (human) 10% in Solution (PRIVIGEN) IV Premix 20 g (And Linked Group #1) 20 g, IV, Q24H New Bag, 20 g at 09/09 194 immune globulin (human) 10% in Solution (PRIVIGEN) IV Premix 5 g (And Linked Group #1) 5 g, IV, Q24H New Bag, 5 g at 09/10 0000 meropenem (MERREM) 1 g in sodium chloride-MBP (NS) 100 mL IVPB-MBP 1 g, IV, Q8H New Bag, 1 g at 09/10 0052 methylPREDNISolone sodium succinate (SOLU-Medrol) injection 250 mg 250 mg, IV, Q6H ZO Given, 250 mg at 09/10 0504 nicotine (NICODERM CQ) 21 MG/24HR patch 1 patch 1 patch, TD, Daily Patch Applied, 1 patch at 09/09 0829 senna-docusate (SENNA-S) 8.6-50 MG tablet 2 tablet 2 tablet, PER OG TUBE, Nightly Given, 2 tablet at 09/10 1947 sodium chloride (NS) 0.9 % infusion - ADS Override Pull No Dose/Rate Ordered Continuous Medication Ordered Dose/Rate, Route, Frequency Last Action HYDROmorphone (DILAUDID) IV infusion 50 mg in 50 mL NS (1 mg/mL) (premix) 1 mg/hr, IV, Continuous Rate/Dose Verify, 1 mg/hr at 09/10 0700 propofol (diPRIvan) 1000 MG/100ML injection 5-75 mcg/kg/min, IV, Titrated Rate/Dose Verify, 20 mcg/kg/min at 09/10 0700 PRN Medication Ordered Dose/Rate, Route, Frequency Last Action bisacodyl (DULCOLAX) suppository 10 mg 10 mg, RE, Daily PRN Ordered dextrose 50 % solution 12.5 g (Or Linked Group #2) 12.5 g, IV, Q15 Min PRN Ordered dextrose 50 % solution 25 g (Or Linked Group #2) 25 g, IV, Q15 Min PRN Ordered glucagon (GLUCAGEN) injection 1 mg (Or Linked Group #2) 1 mg, IM, Daily PRN Ordered glucose (GLUTOSE 15) 40 % oral gel 37.5 g (Or Linked Group #2) 1 Tube, PO, Q15 Min PRN Ordered glucose (GLUTOSE 15) 40 % oral gel 75 g (Or Linked Group #2) 2 Tube, PO, Q15 Min PRN Ordered HYDROmorphone (DILAUDID) injection 1 mg 1 mg, IV, Q3H PRN Given, 1 mg at 09/09 2041 lactulose (ENULOSE) 10 gm/15 mL solution 20 g 30 mL, PER OG TUBE, Q4H PRN Ordered naloxone (NARCAN) 0.4 mg/mL injection 0.4 mg 0.4 mg, IV, Q5 Min PRN Ordered Sign: KRISTA Hobbs 09/10/2024 7:25 AM * Jose Gallegos DO - 09/10/2024 7:11 AM EDT Images from the original note were not included. Division of Pulmonary, Critical Care, and Sleep Medicine [address] [place] [address], [address], [place] [id number] Critical Care Progress Note Assessment 63 y.o. male with hx of Etoh use admitted on 09/07/2024 for eye swelling (admitted to OSH on 09/06/24). Course c/b thrombocytopenia, sepsis, respiratory failure - tx to HH on 09/07/24. Intubated on 09/08/24. Active Problems: Acute metabolic encephalopathy Cavernous sinus thrombosis Acute hypoxic respiratory failure Diffuse alveolar hemorrhage R otitis media Pulmonary edema Volume overload Hypoalbuminemia Thrombocytopenia Sepsis SIRS ARDS Lactic acidosis SVT Shock Hypotension Leukocytosis Total LOS: 3 days Overnight Currently on VC , PEEP of 6. He was afebrile the past 24 hours. Not currently on any vasopressors, hemodynamics adequate. On sedation with Dilaudid and propofol. Plan by System I performed rounds on the medical unit with the entire critical care team and we discussed the events below while developing the daily treatment plan: Neuro: CAM-ICU Delirium Present: Positive Dwyer Agitation Sedation Scale (RASS) / Modified RASS: -1-->Wakes easily, drowsy CTB/MRI-B at OSH showing cavernous sinus thrombosis Neuro consulted, appreciate recs Sedated currently on Propofol gtt and Dilaudid, monitoring TGs Palliative care consult pending clinical trajectory Nicotine patch SW consulted for help with HCR (daughter next of kin but estranged 30 years; mom and sister in chart) Cannot anticoagulate for cavernous sinus thrombosis Per ophtho, left vision loss maybe likely to thrombosis disrupting blood-flow or involvement of theorbital apex or posterior ischemic optic neuropathy given unremarkable fundus exam, normal IOP (22)and non-edematous optic nerve Neuro to review with IR - no thrombosis seen on MRV per neuro IR Continue ciprodex drops for right ear, ear wick in place Resp: Ventilator Start 09/08/24 0935 (Active) Number of days: 2 Ventilation Mode (Drager V500): PC-AC Rate Set (breaths/min) (Drager V500): 14 Pressure Set (cmH2O): 20 Oxygen Concentration (%) (Drager V500): 40 PEEP (cmH2O) (Drager V500): 6 Diffuse alveolar hemorrhage with serial bloody BALs on Bronch 09/08/24 Wean vent settings as tolerated Airway clearance Diuresis to optimize respiratory status Follow-up Bronch cx Pulse steroids - Solumedrol 1g daily 09/08-09/[address] chest does show significant findings of diffuse haziness throughout both lungs consistent with diffuse alveolar hemorrhage CV: Hemodynamics adequate MAP goal 65 GI: Cont tube feeds Bowel regimen PPI Trend Hgb and transfuse as needed - no signs of bleeding >Nutrition: Diet/Nutrition Received: NPO, tube feeding Diet, Tube Feeding, No Tray Continuous; OG Tube; Osmolite 1.5; 20 mL; 60 mL/hr; Water; Every 4 hours; 250cc; NPO Renal: Monitor I/Os, Bicarb, Cr. Replete electrolytes as needed FWF >Intake & Output Intake/Output Summary (Last 24 hours) at 09/10/2024 0711 Last data filed at 09/10/2024 0700 Gross per 24 hour Intake 2980.48 ml Output 2060 ml Net 920.48 ml I/O last 3 completed shifts: In: 4776.5 [I.V.:1023.5; Blood:383; NG/GT:1770; IV Piggyback:1600] Out: 2540 [Urine:2540] Endo: Monitor BG SUZE Heme/Onc: Thrombocytopenia - possible ITP Now on IVIG for 5 days Check hemolysis labs, DIC labs, Ferritin UE and LE Duplex pending Cannot anticoagulate right now Hematology on board ID: Sepsis Pulmonary/ENT infection Dr. Michaud consulted Follow-up cx - gram neg rods on R ear culture On meropenem Acetic acid >Antibiotics: Anti-infectives (From admission, onward) Start Dose/Rate Route Frequency Ordered Stop 09/08/24 1700 meropenem (MERREM) 1 g in sodium chloride-MBP (NS) 100 mL IVPB-MBP 1 g 33.3 mL/hr over 3 Hours Intravenous Every 8 hours 09/08/24 1640 >Recent Cultures: Culture Date Value Ref Range Status 09/08/2024 Negative <24 hours Preliminary 09/08/2024 Negative <24 hours Preliminary 09/07/2024 (A) Preliminary Yeast If further work-up is clinically indicated, contact Microbiology laboratory. (Isolate held for 5 days). 09/07/2024 Mixed normal karin Preliminary ICU Checklist Drips: HYDROmorphone, 1 mg/hr, Last Rate: 1 mg/hr (09/10/24 0700) propofol, 5-75 mcg/kg/min, Last Rate: 20 mcg/kg/min (09/10/24 0700) Lines: Peripheral IV - Single Lumen (Adult) 09/07/24 1600 median vein (underside of arm), right 20 gauge (Active) Number of days: 3 Peripheral IV - Single Lumen (Adult) 09/07/24 2200 median vein (underside of arm), right 20 gauge (Active) Number of days: 3 Peripheral IV - Single Lumen (Adult) 09/08/24 1613 cephalic vein (lateral side of arm), left 20 gauge;1 in length (Active) Number of days: 2 Restraints: Restraint Type: Unlocked Unlocked Bilateral Wrist (NV): continued Behaviors Observed: confused, agitated upon awakening, pulling at lines/tubes Mobility: Progressive Mobility Level Achieved: Level 0 Early: Urethral Catheter (Adult) 09/07/24 2200 10 mL balloon inflation volume (Active) Number of days: 3 GI Prophylaxis (if needed): PPI DVT Prophylaxis: SCD Use: Device is properly applied and functional, SCD IMPROVE SCORE: Stepdown / ICU / CCU Stay: 1-->Stepdown / ICU / CCU stay Age > 60 yrs: 1--> Age > 60 years IMPROVE SCORE: 2 Code Status and Disposition CODE STATUS: Full Code DISPOSITION: ICU I spent 32 minutes of Critical Care time in multiple visits throughout the day for collaboration/coordination of care exclusive of time spent performing separately billable medical procedures. I affirm that this patient is critically ill and at high risk for sudden, fatal deterioration due to one or more of the above active issues. I managed/supervised life- or organ-supporting interventions that require frequent physician assessment and reassessment. Critical care time was spent, but not limited to, the review of laboratory test results, medications, relevant radiology and discussing this critically ill patient's care with other medical staff in the unit or at the nursing station onthe floor where the patient is located. My full attention was given to the management of this patient and I was immediately available during this same time. Objective SpO2:96 %,O2 Device: ventilator, , Oxygen Concentration (%) (Drager V500): 40 Temp Last 24 hrs: Temp Min: 98.2 ??F (36.8 ??C) Max: 100.4 ??F (38 ??C) WBC Trend White Blood Cell Count Date Value Ref Range Status 09/09/2024 7.7 4.0 - 11.0 Thou/uL Final 09/09/2024 10.7 4.0 - 11.0 Thou/uL Final 09/08/2024 12.1 (H) 4.0 - 11.0 Thou/uL Final 09/08/2024 14.2 (H) 4.0 - 11.0 Thou/uL Final Last Vitals: Pulse:71, Resp:17, BP:BP Min: 110/53 Max: 133/64 MAP: 86 mm Hg Physical Exam: General: Sedated, some agitation, intubated, appears stated age and not cooperative HEENT: supple without LAD Lungs: clear to auscultation bilaterally Heart: regular rate and rhythm, S1, S2 normal, no murmur, click, rub or gallop Abdomen: soft, non-tender; bowel sounds normal; no masses, no organomegaly Extremities: atraumatic, no cyanosis or edema I reviewed the prescribed Medications and new Laboratory Blood Work I reviewed all new Imaging Studies (actual images) and compared to prior where applicable Sign: Jose Gallegos DO 09/10/2024 7:11 AM * Carlotta Harrison RN - 09/09/2024 1:02 PM EDT 09/09/24 1301 Discharge Coordination/Tasks Status Patient/Patient Crepe Maker Provided With Choices Of Facility Preference(s) Facility Preference(s) [facility], [place] at [facility], [facility], [facility] [place], [facility] at [facility] received email from sister Julia specifying above listed facilities for formal referrals. Referrals placed as documented in flowsheet. * Pierre Michaud MD - 09/09/2024 12:39 PM EDT [facility] Progress Note Assessment & Plan Assessment Alcohol use disorder in remission for 15 years Tobacco use disorder with a [id number] history Presenting with altered mental status, left eye swelling, tongue swelling and severe right ear pain MRIs were done and the patient was sent down here It looks like he has a cavernous sinus thrombosis. He has gram-negative's in his blood He has bilateral whiteout of his lungs He had a bronchoscopy done yesterday. Bronchoscopy is negative so far Urine pneumococcal antigen is positive Ear culture is pending but so far showing yeast Temperature is 101.1 with a white count of 12.1 platelet count of 42,000 and a creatinine of 1.4 Plan Continue meropenem Awaiting further input from [facility] on what the gram-negative's in his blood and sensitivities Subjective Remains on the ventilator Objective Last Vitals Pulse:75,Resp:16,BP:(!) 93/55,SpO2:94 %,Weight:95.9 kg (211 lb 6.7 oz) Temp Last 24 hrs: Temp Min: 98.2 ??F (36.8 ??C) Max: 101.1 ??F (38.4 ??C) Last temp: 99.7 ??F (37.6 ??C) Physical Exam Lungs: Clear Cardiac: RRR Abdomen: +BS Soft Nontender Skin:No rash No shortness of breath or chest pain Anti-infectives (From admission, onward) Start Dose/Rate Route Frequency Ordered Stop 09/08/24 1700 meropenem (MERREM) 1 g in sodium chloride-MBP (NS) 100 mL IVPB-MBP 1 g 33.3 mL/hr over 3 Hours Intravenous Every 8 hours 09/08/24 1640 Intake/Output Summary (Last 24 hours) at 09/09/2024 1239 Last data filed at 09/09/2024 1100 Gross per 24 hour Intake 2497.98 ml Output 1045 ml Net 1452.98 ml Relevant data reviewed MEDICATIONS Current Facility-Administered Medications Medication Dose Route Frequency Provider Last Rate Last Admin bisacodyl (DULCOLAX) suppository 10 mg 10 mg Rectal Daily PRN Marie Chamberlain PA-C chlorhexidine (PERIDEX) 0.12 % oral solution 15 mL 15 mL Mouth/Throat BID Korina Lai PA-C 15 mL at 09/09/24 0827 chlorhexidine gluconate 2 % wipes - urethral catheter CHG application Topical Daily Nanci Guerra PA-C 1 each at 09/09/24 0320 ciprofloxacin-dexAMETHasone (CIPRODEX) 0.3-0.1 % otic suspension 4 drop 4 drop Right Ear BID Tarun Young MD 4 drop at 09/09/24 0827 glucose (GLUTOSE 15) 40 % oral gel 37.5 g 1 Tube Oral Q15 Min PRN KRISTA Nayg-C Or glucose (GLUTOSE 15) 40 % oral gel 75 g 2 Tube Oral Q15 Min PRN Marie Chamberlain PA-C Or dextrose 50 % solution 12.5 g 12.5 g Intravenous Q15 Min PRN Marie Benítezpa PA-C Or dextrose 50 % solution 25 g 25 g Intravenous Q15 Min PRN KRISTA Nagy-C Or glucagon (GLUCAGEN) injection 1 mg 1 mg Intramuscular Daily PRN Marie Chamberlain PA-C HYDROmorphone (DILAUDID) injection 1 mg 1 mg Intravenous Q3H PRN KRISTA Nagy-C 1 mg at 09/09/24 1136 HYDROmorphone (DILAUDID) IV infusion 50 mg in 50 mL NS (1 mg/mL) (premix) 1 mg/hr Intravenous Continuous KRISTA Magallon 1 mL/hr at 09/09/24 1100 1 mg/hr at 09/09/24 1100 immune globulin (human) 10% in Solution (PRIVIGEN) IV Premix 20 g 20 g Intravenous Q24H Danny Barr MD 20 g at 09/09/24 0116 And immune globulin (human) 10% in Solution (PRIVIGEN) IV Premix 20 g 20 g Intravenous Q24H Danny Barr MD 20 g at 09/09/24 0045 And immune globulin (human) 10% in Solution (PRIVIGEN) IV Premix 20 g 20 g Intravenous Q24H Danny Barr MD 20 g at 09/08/24 2339 And immune globulin (human) 10% in Solution (PRIVIGEN) IV Premix 20 g 20 g Intravenous Q24H Danny Barr MD 20 g at 09/08/24 2130 And immune globulin (human) 10% in Solution (PRIVIGEN) IV Premix 5 g 5 g Intravenous Q24H Danny Barr MD 5 g at 09/09/24 0114 lactulose (ENULOSE) 10 gm/15 mL solution 20 g 30 mL OG Tube Q4H PRN Marie Chamberlain PA-C meropenem (MERREM) 1 g in sodium chloride-MBP (NS) 100 mL IVPB-MBP 1 g Intravenous Q8H KRISTA Nagy-C 33.3 mL/hr at 09/09/24 0828 1 g at 09/09/24 0828 methylPREDNISolone sodium succinate (SOLU-Medrol) injection 250 mg 250 mg Intravenous Q6H ZO Marie Chamberlain PA-C 250 mg at 09/09/24 1220 naloxone (NARCAN) 0.4 mg/mL injection 0.4 mg 0.4 mg Intravenous Q5 Min PRN Marie Chamberlain PA-C nicotine (NICODERM CQ) 21 MG/24HR patch 1 patch 1 patch Transdermal Daily KRISTA Bedolla 1patch at 09/09/24 0829 propofol (diPRIvan) 1000 MG/100ML injection 5-75 mcg/kg/min Intravenous Titrated KRISTA Nagy-C 11.5 mL/hr at 09/09/24 1230 20 mcg/kg/min at 09/09/24 1230 senna-docusate (SENNA-S) 8.6-50 MG tablet 2 tablet 2 tablet OG Tube Nightly Marie Chamberlain PA-C 2 tablet at 09/08/24 2100 Notable labs are: Lab Results Component Value Date WBC 12.1 (H) 09/08/2024 HGB 7.8 (L) 09/09/2024 HCT 23.0 (L) 09/09/2024 PLT 42 (L) 09/08/2024 Lab Results Component Value Date AST 48 09/08/2024 ALT 20 09/08/2024 ALKPHOS 66 09/08/2024 BILITOT 3.2 (H) 09/08/2024 BILIDIR 2.4 (H) 09/08/2024 ALBUMIN 2.6 (L) 09/08/2024 PROT 5.2 (L) 09/08/2024 Lab Results Component Value Date CREAT 1.4 (H) 09/08/2024 Blood Cultures: Lab Results Component Value Date CULTURE Negative <24 hours 09/08/2024 CULTURE Negative <24 hours 09/08/2024 Urine Cultures: No results found for: CRYSUA , HYALNCSTUA , UROBILINOGEN , BILIUA , BLOODUA , CLARITYUA , COLORUA , UACOMMENT , GLUCU , KETONESUA , LEUKOCYTESUA , NITRITEUA , PHUA , PROTEINUA , RBCUA , SPECIMEN , SPECGRAVUA , SQEPIUA , WBCUA No components found for: WOUND C. Difficile: No results found for: CDIFFTOX , NAP1 Sign Pierre Michaud MD 09/09/2024 12:39 PM Pierre Michaud * Carlotta Harrison RN - 09/09/2024 11:12 AM EDT 09/09/24 1107 General Information Admission Type inpatient Arrived From Hospital Referral Source admission list Reason for Consult discharge planning Initial Information How to be Addressed Mariah Source of Information family;health record Patient Aware of Diagnosis no Limitations on Visitors/Phone Calls none Temporary Family Living Arrangements (While Hospitalized) none needed Adaptive Services not applicable Does the Patient Have a CT DNR [facility] [place] Bracelet or State DNR Form? no Clinical Trial not applicable Designated Caregiver for Discharge Coordination Do You Have a Designated Caregiver for Discharge? yes Designated Caregiver's Name Julia Caregiver's Relationship to Patient sister Caregiver's Phone Number [phone] Caregiver Notification Attempt Comment Spoke with Julia via telephone Living Environment People in Home alone (*stays with mother Carmina frequently) Current Living Arrangements home;other (see comments) (mobile home) Primary Care Provided by self Provides Primary Care For parent(s) Caregiving Concerns Carmina- daughter Julia caring for at this time Family Caregiver if Needed sibling(s) Family Caregiver Names Julia Quality of Family Relationships helpful;involved;supportive Able to Return to Prior Arrangements yes Relationship/Environment Primary Source of Support/Comfort parent;sibling(s) Name of Support/Comfort Primary Source Carmina wilbert Dumont Primary Roles/Responsibilities other (see comments) (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) Resource/Environmental Concerns Resource/Environmental Concerns home accessibility Home Accessibility Concerns stairs to enter home Transportation Concerns none Disability/Function Hearing Difficulty or Deaf no Wear Glasses or Blind yes Vision Management glasses Concentrating, Remembering or Making Decisions Difficulty no Difficulty Communicating no Difficulty Eating/Swallowing no Walking or Climbing Stairs Difficulty no Dressing/Bathing Difficulty no Doing Errands Independently Difficulty (such as shopping) no Equipment Currently Used at Home none Change in Functional Status Since Onset of Current Illness/Injury yes Functional Status Usual Activity Tolerance excellent Current Activity Tolerance fair Functional Status, IADL Medications independent Meal Preparation independent Housekeeping independent Laundry independent Shopping independent Financial Resource Strain How hard is it for you to pay for the very basics like food, housing, medical care, and heating? PtUnable Living Arrangement Living arrangement: Alone Type of residence: Private residence (mobile home/ stays with mother at times) Housing Stability In the last 12 months, was there a time when you were not able to pay the mortgage or rent on time?Pt Unable In the past 12 months, how many times have you moved where you were living? 1 At any time in the past 12 months, were you homeless or living in a long term (including now)? Pt Unable Food Insecurity Within the past 12 months, you worried that your food would run out before you got the money to buymore. Pt Unable Within the past 12 months, the food you bought just didn't last and you didn't have money to get more. Pt Unable Transportation Needs In the past 12 months, has lack of transportation kept you from medical appointments or from getting medications? Pt Unable In the past 12 months, has lack of transportation kept you from meetings, work, or from getting things needed for daily living? Pt Unable Utilities In the past 12 months has the electric, gas, oil, or water [employer] threatened to shut off services in your home? Pt Unable Interpersonal Safety Within the last year, have you been humiliated or emotionally abused in other ways by anyone? Patient unable to answer Within the last year, have you been kicked, hit, slapped, or otherwise physically hurt by anyone? Patient unable to answer Discharge Needs Assessment Readmission Within the Last 30 Days no previous admission in last 30 days Concerns to be Addressed discharge planning Patient/Family Anticipates Transition to home with family;home with help/services;inpatient rehabilitation facility Patient/Family Anticipated Services at Transition home health care;nursing home Transportation Anticipated health plan transportation Anticipated Changes Related to Illness other (see comments);inability to care for someone else (anticipating rehab needs) Equipment Needed After Discharge other (see comments) (pending therapy evals when appropriate) Outpatient/Agency/Support Group Needs homecare agency;inpatient rehabilitation facility;nursing home facility Discharge Facility/Level of Care Needs nursing facility, skilled Offered/Gave Vendor List yes ([facility] SN[facility] list emailed to sister Julia at [email or web address]) Discharge Coordination/Tasks Status Condition Code 44 Met? no CT Observation Status Notice Given? no PASRR Completed No ([place] resident*) Level of Care Completed No Plan Plan STR vs Home with HC * Cinthya Zapata MD - 09/09/2024 8:41 AM EDT ENT Progress Note Subjective: Worsening mental status and respiratory status yesterday, required intubation. Objective: Temp: [98.2 ??F (36.8 ??C)-101.8 ??F (38.8 ??C)] 99.5 ??F (37.5 ??C) Pulse: [66-115] 73 Resp: [14-36] 24 BP: (56-131)/(32-70) 91/50 I/O last 3 completed shifts: In: 3823.9 [I.V.:1127.9; Blood:586; NG/GT:60; IV Piggyback:2049] Out: 2024 [Urine:2024] Physical Examination: NAD, intubated and sedated Left eye cellulitic changes, edema Right ear with wick in place, no purulent drainage Labs: Lab Results Component Value Date WBC 12.1 (H) 09/08/2024 HGB 7.8 (L) 09/09/2024 HCT 23.0 (L) 09/09/2024 MCV 93 09/08/2024 PLT 42 (L) 09/08/2024 Lab Results Component Value Date CALCIUM 8.0 (L) 09/08/2024 NA 146 (H) 09/08/2024 K 4.9 09/08/2024 CO2 22 09/08/2024 CO2 26 09/08/2024 CL 115 (H) 09/08/2024 BUN 70 (H) 09/08/2024 Assessment: 63 y.o. male with alcohol and tobacco use history presenting to OSH initially for left eye swellingand right ear pain. He has findings consistent with left sided cavernous sinus thrombosis. Overall,he has no paranasal sinus disease on CT scan and normal nasal endoscopy which makes sinonasal source of infection very unlikely. Would recommend continued management for eye findings per other consulting services. Additionally he has clinical findings consistent with right sided otitis externa and media based onCT scan. There is no clinical evidence of mastoiditis. We do not think this is related to his eye pathology. Plan: -Appreciate care per primary team -ENT team to remove wick when clinically appropriate -Follow-up ear culture -Continue ciprodex gtts, remainder of abx per ID recommendations -Appreciate ophthalmology recommendations -Please page ENT environmental sampler with any questions or concerns Cinthya Zapata MD Otolaryngology Cosigned by Jose Pond MD at 09/10/2024 5:29 AM EDT * Jose Gallegos DO - 09/09/2024 6:40 AM EDT Images from the original note were not included. Division of Pulmonary, Critical Care, and Sleep Medicine [address] [facility], [address], [place] [address] Critical Care Progress Note Assessment 63 y.o. male with hx of Etoh use admitted on 09/07/2024 for eye swelling (admitted to OSH on 09/06/24). Course c/b thrombocytopenia, sepsis, respiratory failure - tx to on 09/07/24. Intubated on 09/08/24. Active Problems: Acute metabolic encephalopathy Cavernous sinus thrombosis Acute hypoxic respiratory failure Diffuse alveolar hemorrhage R otitis media Pulmonary edema Volume overload Hypoalbuminemia Thrombocytopenia Sepsis SIRS ARDS Lactic acidosis SVT Shock Hypotension Leukocytosis Total LOS: 2 days Overnight Currently on PC , PEEP of 8. He was afebrile the past 24 hours. Not currently on any vasopressors, hemodynamics adequate. On sedation with Dilaudid and propofol. Plan by System I performed rounds on the medical unit with the entire critical care team and we discussed the events below while developing the daily treatment plan: Neuro: CAM-ICU Delirium Present: Negative Dwyer Agitation Sedation Scale (RASS) / Modified RASS: -2-->Wakes slowly, very drowsy/light sedation CTB/MRI-B at OSH showing cavernous sinus thrombosis Neuro consulted, appreciate recs Sedated currently on Propofol gtt and Dilaudid Palliative care consult pending clinical trajectory Nicotine patch SW consulted for help with HCR (daughter next of kin but estranged 30 years; mom and sister in chart) Cannot anticoagulate for cavernous sinus thrombosis Per ophtho, left vision loss maybe likely to thrombosis disrupting blood-flow or involvement of theorbital apex or posterior ischemic optic neuropathy given unremarkable fundus exam, normal IOP (22)and non-edematous optic nerve Resp: Ventilation Mode (Drager V500): PC-AC Rate Set (breaths/min) (Drager V500): (S) 20 (per provider 2/2 abg pco2 50) Pressure Set (cmH2O): 18 Oxygen Concentration (%) (Drager V500): (S) 40 (sats 97%) PEEP (cmH2O) (Drager V500): 8 Diffuse alveolar hemorrhage with serial bloody BALs on Bronch 09/08/24 Wean vent settings as tolerated Airway clearance Diuresis to optimize respiratory status Follow-up Bronch cx Pulse steroids - Solumedrol 1g daily 09/08-09/[address] chest does show significant findings of diffuse haziness throughout both lungs consistent with diffuse alveolar hemorrhage CV: Hemodynamics adequate MAP goal 65 GI: Start tube feeds Bowel regimen PPI Trend Hgb and transfuse as needed - no signs of bleeding >Nutrition: Diet/Nutrition Received: NPO Diet NPO; Meds Renal: Monitor I/Os, Bicarb, Cr. Replete electrolytes as needed [facility] >Intake & Output Intake/Output Summary (Last 24 hours) at 09/09/2024 0640 Last data filed at 09/09/2024 0600 Gross per 24 hour Intake 2545.23 ml Output 1320 ml Net 1225.23 ml I/O last 3 completed shifts: In: 2242.8 [I.V.:739.8; Blood:203; IV Piggyback:1300] Out: 1745 [Urine:1745] Endo: Monitor BG SUZE Heme/Onc: Thrombocytopenia - possible ITP Now on IVIG for 5 days Check hemolysis labs, DIC labs, Ferritin UE and LE Duplex pending Cannot anticoagulate right now Hematology on board ID: Sepsis Pulmonary/ENT infection Dr. Michaud consulted Follow-up cx - gram neg rods on R ear culture On meropenem >Antibiotics: Anti-infectives (From admission, onward) Start Dose/Rate Route Frequency Ordered Stop 09/08/24 1700 meropenem (MERREM) 1 g in sodium chloride-MBP (NS) 100 mL IVPB-MBP 1 g 33.3 mL/hr over 3 Hours Intravenous Every 8 hours 09/08/24 1640 >Recent Cultures: Culture Date Value Ref Range Status 09/08/2024 PENDING Preliminary 09/07/2024 Negative <24 hours Preliminary 09/07/2024 Sterile <24 hours Preliminary ICU Checklist Drips: dextrose, 50 mL/hr, Last Rate: 50 mL/hr (09/09/24 0400) HYDROmorphone, 1 mg/hr, Last Rate: 1 mg/hr (09/09/24 0514) propofol, 5-75 mcg/kg/min, Last Rate: 20 mcg/kg/min (09/09/24 0522) Lines: Peripheral IV - Single Lumen (Adult) 09/07/24 1600 median vein (underside of arm), right 20 gauge (Active) Number of days: 2 Peripheral IV - Single Lumen (Adult) 09/07/24 2200 median vein (underside of arm), right 20 gauge (Active) Number of days: 2 Peripheral IV - Single Lumen (Adult) 09/08/24 1613 cephalic vein (lateral side of arm), left 20 gauge;1 in length (Active) Number of days: 1 Restraints: Restraint Type: Unlocked Unlocked Bilateral Wrist (NV): continued Behaviors Observed: confused, agitated upon awakening, pulling at lines/tubes Mobility: Progressive Mobility Level Achieved: Level 0 Early: Urethral Catheter (Adult) 09/07/24 2200 10 mL balloon inflation volume (Active) Number of days: 2 GI Prophylaxis (if needed): PPI DVT Prophylaxis: SCD Use: Device is properly applied and functional, SCD IMPROVE SCORE: Stepdown / ICU / CCU Stay: 1-->Stepdown / ICU / CCU stay Age > 60 yrs: 1--> Age > 60 years IMPROVE SCORE: 2 Code Status and Disposition CODE STATUS: Full DISPOSITION: ICU I spent 36 minutes of Critical Care time in multiple visits throughout the day for collaboration/coordination of care exclusive of time spent performing separately billable medical procedures. I affirm that this patient is critically ill and at high risk for sudden, fatal deterioration due to one or more of the above active issues. I managed/supervised life- or organ-supporting interventions that require frequent physician assessment and reassessment. Critical care time was spent, but not limited to, the review of laboratory test results, medications, relevant radiology and discussing this critically ill patient's care with other medical staff in the unit or at the nursing station [facility] floor where the patient is located. My full attention was given to the management of this patient and I was immediately available during this same time. Objective SpO2:94 %,O2 Device: ventilator, , Oxygen Concentration (%): 40 Oxygen Concentration (%) (Drager V500): (S) 40 (sats 97%) Temp Last 24 hrs: Temp Min: 98.2 ??F (36.8 ??C) Max: 101.8 ??F (38.8 ??C) WBC Trend White Blood Cell Count Date Value Ref Range Status 09/08/2024 12.1 (H) 4.0 - 11.0 Thou/uL Final 09/08/2024 14.2 (H) 4.0 - 11.0 Thou/uL Final 09/07/2024 16.5 (H) 4.0 - 11.0 Thou/uL Final Last Vitals: Pulse:77, Resp:(!) 21, BP:BP Min: 84/49 Max: 107/58 MAP: 86 mm Hg Physical Exam: General: Sedated, intubated, appears stated age and not cooperative HEENT: supple without LAD Lungs: clear to auscultation bilaterally Heart: regular rate and rhythm, S1, S2 normal, no murmur, click, rub or gallop Abdomen: soft, non-tender; bowel sounds normal; no masses, no organomegaly Extremities: atraumatic, no cyanosis or edema I reviewed the prescribed Medications and new Laboratory Blood Work I reviewed all new Imaging Studies (actual images) and compared to prior where applicable Sign: Jose Gallegos DO 09/09/2024 6:40 AM * KRISTA Hobbs - 09/09/2024 6:10 AM EDT Critical Care Progress Note Subjective - dilaudid gtt increase to 1 overnight in attempts to wean prop - downtrend H/H, no signs of bleeding, repeat pending Assessment & Plan Assessment: Mariah Masterson is a 63 year old male with PMHx of depression, alcohol abuse, tobacco use who presented to OSH for concern of left eye swelling and right ear pain. He was ultimately transferred to for ENT, ophthalmology, ID, neuro consults. He was admitted for further management of cavernous sinus thrombosis with course complicated by worsening hypoxia with concern for ARDS. 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) - Mental status: - Continue with dilaudid gtt @ 1mg/hr(increased overnight from 0.5mg/hr) - Wean propofol as tolerated - currently @ 20mcg/kg/hr - started on nicotine patch - active smoker - Holding home paroxetine and risperidone - consulted for help with HCR (daughter next of kin but estranged 30 years; mom and sister in chart) - patient had CT head, brain MRI and head/brain venography at OSH; significant findings as below - neuro consulted for cavernous sinus thrombosis; continue with IV abx; anticoagulation typically mainstay of treatment but cannot be started secondary to thrombocytopenia - Neuro to review with IR to determine if additional imaging will be necessary - repeat CT head w/o contrast ordered given change in mental status overnight CT Head at OSH CT head with abnormal findings in the right mastoid air cells, middle and external ear. Favor otitis media, externa with soft tissue asp status and mastoiditis. MRV at OSH with normal flow related enhancement in the major cortical and dural venous sinuses. CT A/P with hepatosplenomegaly, distended gallbladder, thickening of the adrenal glands, bilateral perinephric stranding, distended stomach with air- fluid level. MRI Brain (at OSH): 1. Abnormalities of the left orbit including mild enlargement of the extraocular muscles, mild edema throughout the intra and extra conal fat, loss of the normal flow-void of the superior ophthalmic vein, mild enlargement of the left superior ophthalmic vein, minimal left lobe proptosis and left preseptal soft tissue edema. There may be thrombosis of the left superior ophthalmic vein. These findings all highly suggest left cavernous sinus thrombosis. 2. Right mastoid tympanic space effusion andcerumen impaction in the right external auditory canal. 3. Edema and swelling throughout the right temporalis muscle and involving the right > left muscles of mastication of uncertain etiology, direct extension of right mastoiditis is a consideration as is right cavernous sinus thrombosis. 4. High signal within the right sphenoid parietal sinus is also present suggesting thrombosis. - CT head(09/08) - 1. No CT evidence of acute territorial infarction or acute intracanal hemorrhage. Limited evaluation of the brainstem. Please note, CT is not sensitive to take small acute ischemic infarct. MR of the brain without contrast is recommended for further assessment. 2. Mild to moderate chronic white matter small as ischemic changes. ENT: Left eye swelling, right sided otitis externa and media, right quaker swelling - Patient with left eye swollen shut - Ophthalmology consulted, given no light perception in left eye, poor visual prognosis; no acute interventions recommended to help with left eye vision - No evidence of right eye involvement - Per ophtho, left vision loss maybe likely to thrombosis disrupting blood-flow or involvement of the orbital apex or posterior ischemic optic neuropathy given unremarkable fundus exam, normal IOP (22) and non-edematous optic nerve - Pt stated he has hx of chronic right ear pain and will often instill hydrogen peroxide and clean out ear with qtip - ENT consulted, no surgical intervention at this time - recommend CT IAC with contrast; ordered and pending - Continue ciprodex drops for right ear - No clinical evidence of mastoiditis Behavioral/Sedation scales CAM-ICU Delirium Present: Negative Dwyer Agitation Sedation Scale (RASS) / Modified RASS: -2-->Wakes slowly, very drowsy/light sedation Resp: Hypoxia with concern for ARDS, cannot r/o DAH - intubated on 09/08 - VC/AC rate 16 TV 500 PEEP 8 50% - ABG(09/08) - 7.3/50/229 - mixed venous 83.5 (09/08) - proBNP 3,773(5786) - s/p 40mg IV lasix yesterday - Continue solumedrol 250mg IV q6h - CT Thorax ordered and pending - CXR(09/07) - 1. Markedly worsened diffuse bilateral interstitial and airspace opacification involving the entire lungs bilaterally. 2. Heart and mediastinum are widened, this is exaggerated by AP technique and unchanged. - CXR(09/08) - repeat pending CV: Non sustained VT at outside hospital, currently no acute issues - SBP 90 - 100s HR 70 - 100s - HS trop 22 - run of SVT at OSH into the 210s; and 190s upon arrival to MICU; both non- sustained; patient converted to NSR on his own - ECG 09/08 NSR RBBB QTC 505 ECHO at OSH: Hyperdynamic LVEF greater than 70% with impaired relaxation filling pattern. At least moderately dilated left atrium. Calcified aortic valve changes noted with mean gradient of 32 mmHg with a calculated valve area in mild stenosis range suggestive of overall probably increase flow through the aortic valve due to higher stroke volume. Calcific mitral valve changes noted with possible mild mitral stenosis. Mildly dilated ascending aorta 3.7cm. No gross pericardial effusion. GI: Resolved Lactic acidosis - Diet: NPO - start TF - Lactic acid 1.9 (5.1 at OSH) - Tbili 3.2(2.6) Dbili2.4( 1.9) AST/ALT and alk phos WNL - CT A/P at OSH with hepatosplenomegaly, distended gallbladder, thickening of the adrenal glands, bilateral perinephric stranding, distended stomach with air- fluid level. - Per chart from OSH, report of stool that was dark and tarry 2 days prior - guaiac positive at OSH ED - will monitor for signs of bleeding - no BM/24hrs Renal: CLINT - BUN/Cr 70/1.4(49/1.1) - Na 146(143) - D5W@ 50 - check afternoon lytes and adjust accordingly vs transition to [facility] via OGT - early placed for retention and now CLINT - received fluids (sepsis bolus) and albumin at OSH Early: yes Early indication: Urinary Retention Intake & Output Intake/Output Summary (Last 24 hours) at 09/09/2024 0610 Last data filed at 09/09/2024 0400 Gross per 24 hour Intake 2545.23 ml Output 1290 ml Net 1255.23 ml Endo: No active issues - BG 130s-140s - check FS q4h while NPO - hypoglycemia protocol - check A1C - TSH 0.80 Heme/Onc: Anemia, Thrombocytopenia - H/H 7.8/23(7.9/23.3)(10.9/31.2 )(11.6/33.7) - Plt 42(16)(9)(10) - s/p 2 plt on 09/08, s/p 2 plt at OSH - Plt goal >20 - PT 14.4 PTT 27 - INR 1.3 - fibrinogen 579 (550) - thrombin time 12.2 - RBC morphology at OSH 3+ microcytosis, 3+ marcelino cells, 3+ schistocytes - haptoglobin 137 , LDH 436, reticulocyte 0.4, red blood cell morphology normal - will consult heme for thrombocytopenia - Duplex LE with no DVT; will also get upper extremity duplex - chemical ppx and SCD contraindicated with low plt count - Heme consulted - concern for secondary ITP due to acute illness/sepsis - started on IVIG yesterday 09/08 and high dose steroids, goal plt >30 Lower Extremity Doppler 09/08/24: Bilaterally, the duplex ultrasound of the lower extremities demonstrates normal Doppler flow with no thrombus seen in patterson scale. Findings are not consistent with the presence of deep vein thrombosisbilaterally. ID: Leukocytosis, possible PNA, HEENT infection - tmax 101.1, t-current 99.3 - WBC 12.1(14.2) - UA at OSH positive for nitrites and trace LE no bacteria - right ear culture pending at OSH - right ear culture(09/07) - gram positive rods - blood cx OSH - GNR - blood cultures (09/07) prelim sterile - MRSA swab (09/07) negative - fluvid negative - legionella prelim negative - urine strep presumptive positive - PJP pending - Dr. Michaud following - Blood cultures (both sets) at OSH growing GNR. Per Dr. Michaud d/c vyvox, flagyl and cefepime and start meropenem. - s/p vanco, zosyn and ceftriaxone at OSH Vascular access: PIV IV access Mobility: Progressive Mobility Level Achieved: Level 0,PT/OT: Yes GI PPx: none DVT PPx: None, SCDs VTE Risk Assessment VTE Time Out IMPROVE SCORE: 2 (09/07/2024 5:40 PM) Interpretation - High Risk Chemical Prophylaxis Chemical VTE prophylaxis NOT ordered. Click here to order if appropriate Chemical Prophylaxis Contraindication: Yes, secondary to Thrombocytopenia (Platelet count less than50,000) Mechanical Prophylaxis Mechanical VTE prophylaxis NOT ordered. Click here to order if appropriate Mechanical Prophylaxis Contraindication: Yes, secondary to Other (Please Specify): thrombocytopenia Drips: dextrose, 50 mL/hr, Last Rate: 50 mL/hr (09/09/24 0400) HYDROmorphone, 1 mg/hr, Last Rate: 1 mg/hr (09/09/24 0514) propofol, 5-75 mcg/kg/min, Last Rate: 20 mcg/kg/min (09/09/24 0522) Lines: Peripheral IV - Single Lumen (Adult) 09/07/24 1600 median vein (underside of arm), right 20 gauge (Active) Number of days: 2 Peripheral IV - Single Lumen (Adult) 09/07/24 2200 median vein (underside of arm), right 20 gauge (Active) Number of days: 2 Peripheral IV - Single Lumen (Adult) 09/08/24 1613 cephalic vein (lateral side of arm), left 20 gauge;1 in length (Active) Number of days: 1 Enteric Access and Early: Naso/Orogastric Tube (Adult) 09/08/24 1100 Hancock sump 18 Fr mouth, center (Active) Number of days: 1 Urethral Catheter (Adult) 09/07/24 2200 10 mL balloon inflation volume (Active) Number of days: 2 Restraints: soft wrists Interference with medical treatment Code: FULL Dispo: ICU, per Dr. Gallegos Objective Last Vitals: Pulse:78, Resp:16, BP:BP Min: 84/49 Max: 114/56 MAP: 86 mm Hg SpO2:96 % CVP: Temp Last 24 hrs: Temp Min: 98.2 ??F (36.8 ??C) Max: 101.8 ??F (38.8 ??C) Physical Exam: General appearance: adult male, laying in bed,sedated HEENT: left eye swollen shut, no light perception; right eye involvement. Mild swelling over right quaker region Lungs: coarse and diminished lung sounds throughout bilaterally Heart: tachycardic, normal rhythm no murmurs Abdomen: hypoactive bowel sounds, abdomen soft, non-tender non-distended Extremities: no edema to lower or upper extremities Neurologic: PERRL, patient alert but not following commands Labs: Recent Labs 09/07/24 1636 09/08/24 0117 09/08/24 1215 09/08/24 2309 WBC 16.5* 14.2* -- 12.1* HGB 11.6* 10.9* -- 7.9* HCT 33.7* 31.2* -- 23.3* PLT 10* 9* 16* 42* MCV 90 89 -- 93 MCH 30.9 31.2* -- 31.5* MCHC 34.4 34.9 -- 33.9 RDW 13.4 13.6 -- 14.5 MONOABS 0.3 -- -- -- Recent Labs 09/07/24 1636 09/07/24 2151 09/08/24 0117 09/08/24 1215 09/08/24 1223 09/08/24 1609 09/08/24 2309 BUN 45* -- 49* -- -- -- 70* CREAT 1.0 -- 1.1 -- -- -- 1.4* NA 141 -- 143 -- -- -- 146* K 3.6 -- 4.0 -- -- -- 4.9 CO2 21* 22 20* -- 23 24 26 22 CL 109* -- 112* -- -- -- 115* MG 2.3 -- 2.5 -- -- -- 3.1* PHOS 3.3 -- 3.2 -- -- -- 4.9* AST 43 -- -- 48 -- -- -- ALT 18 -- -- 20 -- -- -- PROT 5.2* -- -- 5.2* -- -- -- Recent Labs 09/07/24 1703 09/08/24 0132 PTT 30 27 INR 1.3 1.3 Medications Medication/MAR Report: Medications Scheduled Medication Ordered Dose/Rate, Route, Frequency Last Action chlorhexidine (PERIDEX) 0.12 % oral solution 15 mL 15 mL, MT, BID Given, 15 mL at 09/09 2011 chlorhexidine gluconate 2 % wipes - urethral catheter CHG application No Dose/Rate, TOP, Daily Given, 1 each at 09/09 032 ciprofloxacin-dexAMETHasone (CIPRODEX) 0.3-0.1 % otic suspension 4 drop 4 drop, RIGHT EAR, BID Given, 4 drop at 09/08 2012 immune globulin (human) 10% in Solution (PRIVIGEN) IV Premix 20 g (And Linked Group #1) 20 g, IV, Q24H New Bag, 20 g at 09/09 0116 immune globulin (human) 10% in Solution (PRIVIGEN) IV Premix 20 g (And Linked Group #1) 20 g, IV, Q24H New Bag, 20 g at 09/09 0045 immune globulin (human) 10% in Solution (PRIVIGEN) IV Premix 20 g (And Linked Group #1) 20 g, IV, Q24H New Bag, 20 g at 09/08 2339 immune globulin (human) 10% in Solution (PRIVIGEN) IV Premix 20 g (And Linked Group #1) 20 g, IV, Q24H New Bag, 20 g at 09/08 2130 immune globulin (human) 10% in Solution (PRIVIGEN) IV Premix 5 g (And Linked Group #1) 5 g, IV, Q24H New Bag, 5 g at 09/09 0114 meropenem (MERREM) 1 g in sodium chloride-MBP (NS) 100 mL IVPB-MBP 1 g, IV, Q8H New Bag, 1 g at 09/09 0239 methylPREDNISolone sodium succinate (SOLU-Medrol) injection 250 mg 250 mg, IV, Q6H ZO Given, 250 mg at 09/09 0552 nicotine (NICODERM CQ) 21 MG/24HR patch 1 patch 1 patch, TD, Daily Patch Applied, 1 patch at 09/08 1009 PANTOprazole (PROTONIX) injection 40 mg 40 mg, IV, Daily Given, 40 mg at 09/08 1010 senna-docusate (SENNA-S) 8.6-50 MG tablet 2 tablet 2 tablet, PER OG TUBE, Nightly Given, 2 tablet at 09/08 2100 sodium chloride (NS) 0.9 % infusion - ADS Override Pull No Dose/Rate Ordered Continuous Medication Ordered Dose/Rate, Route, Frequency Last Action dextrose 5 % (D5W) infusion 50 mL/hr, IV, Continuous Rate/Dose Verify, 50 mL/hr at 09/09 0400 HYDROmorphone (DILAUDID) IV infusion 50 mg in 50 mL NS (1 mg/mL) (premix) 1 mg/hr, IV, Continuous Rate Change - High Risk Medication, 1 mg/hr at 09/09 0514 propofol (diPRIvan) 1000 MG/100ML injection 5-75 mcg/kg/min, IV, Titrated New Bag, 20 mcg/kg/min at 09/09 0522 PRN Medication Ordered Dose/Rate, Route, Frequency Last Action bisacodyl (DULCOLAX) suppository 10 mg 10 mg, RE, Daily PRN Ordered dextrose 50 % solution 12.5 g (Or Linked Group #2) 12.5 g, IV, Q15 Min PRN Ordered dextrose 50 % solution 25 g (Or Linked Group #2) 25 g, IV, Q15 Min PRN Ordered glucagon (GLUCAGEN) injection 1 mg (Or Linked Group #2) 1 mg, IM, Daily PRN Ordered glucose (GLUTOSE 15) 40 % oral gel 37.5 g (Or Linked Group #2) 1 Tube, PO, Q15 Min PRN Ordered glucose (GLUTOSE 15) 40 % oral gel 75 g (Or Linked Group #2) 2 Tube, PO, Q15 Min PRN Ordered HYDROmorphone (DILAUDID) injection 1 mg 1 mg, IV, Q3H PRN Given, 1 mg at 09/09 022 lactulose (ENULOSE) 10 gm/15 mL solution 20 g 30 mL, PER OG TUBE, Q4H PRN Ordered naloxone (NARCAN) 0.4 mg/mL injection 0.4 mg 0.4 mg, IV, Q5 Min PRN Ordered Sign: KRISTA Hobbs 09/09/2024 6:10 AM * Danny Barr MD - 09/08/2024 1:43 PM EDT Images from the original note were not included. Division of Pulmonary, Critical Care, and Sleep Medicine [address] [facility], [address], [place] [address] Critical Care Progress Note Assessment 63 y.o. male with hx of Etoh use admitted on 09/07/2024 for eye swelling (admitted to OSH on 09/06/24). Course c/b thrombocytopenia, sepsis, respiratory failure - tx to HH on 09/07/24. Intubated on 09/08/24. Active Problems: Acute metabolic encephalopathy Cavernous sinus thrombosis Acute hypoxic respiratory failure Diffuse alveolar hemorrhage Pulmonary edema Volume overload Hypoalbuminemia Thrombocytopenia Sepsis SIRS ARDS Lactic acidosis SVT Shock Hypotension Leukocytosis Total LOS: 1 days Overnight Agitated overnight, started on Precedex gtt Increasing Fi02 needs on HFNC Intubated this AM during rounds Plan by System I performed rounds on the medical unit with the entire critical care team and we discussed the events below while developing the daily treatment plan: Neuro: CAM-ICU Delirium Present: Negative Dwyer Agitation Sedation Scale (RASS) / Modified RASS: -3-->Difficult to wake/moderate sedation Acute metabolic encephalopathy CTB/MRI-B at OSH showing cavernous sinus thrombosis Neuro consulted, appreciate recs Sedated currently on Propofol gtt Palliative care consult pending clinical trajectory Resp: Ventilation Mode (Drager V500): VC-AC Rate Set (breaths/min) (Drager V500): 16 Tidal Volume Set (mL) (Drager V500): 500 (6ccs) Oxygen Concentration (%) (Drager V500): 90 PEEP (cmH2O) (Drager V500): 8 Diffuse alveolar hemorrhage with serial bloody BALs on Bronch 09/08/24 ARDS-physiology Lung protective ventilation Diuresis to optimize respiratory status Follow-up Bronch cx Pulse steroids - Solumedrol 1g daily 09/08-09/10 then taper CV: Shock SVT MAP goal 65, wean Levo as able Check Mv02 and CVP if TLC placed Trend Lactate prn TTE w/ bubble pending GI: CT a/p showing hepatosplenomegaly Tfs PPI >Nutrition: Diet/Nutrition Received: NPO Diet NPO; Meds Renal: Monitor I/Os, Bicarb, Cr. >Intake & Output Intake/Output Summary (Last 24 hours) at 09/08/2024 1343 Last data filed at 09/08/2024 1300 Gross per 24 hour Intake 1941.99 ml Output 1155 ml Net 786.99 ml I/O last 3 completed shifts: In: 1331.3 [I.V.:328.3; Blood:203; IV Piggyback:800] Out: 905 [Urine:905] Endo: Monitor BG Heme/Onc: Thrombocytopenia Goal > 20 if febrile Check hemolysis labs, DIC labs, Ferritin UE and LE Duplex pending Cannot anticoagulate right now Hematology consult ID: Sepsis Pulmonary/ENT infection Dr. Michaud consulted Infectious work up ongoing Follow-up cx data Continue broad spectrum Abx as noted below >Antibiotics: Anti-infectives (From admission, onward) Start Dose/Rate Route Frequency Ordered Stop 09/07/24 1730 linezolid (ZYVOX) IVPB 600 mg in 300 mL D5W (premix) 600 mg 300 mL/hr over 60 Minutes Intravenous Every 12 hours 09/07/24 1724 09/07/24 1730 cefepime (MAXIPIME) 2 g in sodium chloride-MBP (NS) 100 mL IVPB-MBP 2 g 33.3 mL/hr over 3 Hours Intravenous Every 8 hours 09/07/24 1724 09/07/24 1730 metroNIDAZOLE (FLAGYL) IVPB 500 mg in 100 mL NS (premix) 500 mg 100 mL/hr over 60 Minutes Intravenous Every 12 hours 09/07/24 1724 >Recent Cultures: Culture Date Value Ref Range Status 09/07/2024 Negative <24 hours Preliminary 09/07/2024 Sterile <24 hours Preliminary 09/07/2024 Sterile <24 hours Preliminary ICU Checklist Drips: norepinephrine (LEVOPHED) IV infusion, 2-60 mcg/min, Last Rate: 8 mcg/min (09/08/24 1300) propofol, 5-75 mcg/kg/min, Last Rate: 40 mcg/kg/min (09/08/24 1319) Lines: Peripheral IV - Single Lumen (Adult) 09/07/24 1600 median vein (underside of arm), right 20 gauge (Active) Number of days: 1 Peripheral IV - Single Lumen (Adult) 09/07/24 2200 median vein (underside of arm), right 20 gauge (Active) Number of days: 1 Restraints: Restraint Type: Unlocked Unlocked Bilateral Wrist (NV): continued Behaviors Observed: agitated upon awakening Mobility: Progressive Mobility Level Achieved: Level 0 Early: Urethral Catheter (Adult) 09/07/24 2200 10 mL balloon inflation volume (Active) Number of days: 1 GI Prophylaxis (if needed): PPI DVT Prophylaxis: SCD Use: Device is properly applied and functional, SCD IMPROVE SCORE: Stepdown / ICU / CCU Stay: 1-->Stepdown / ICU / CCU stay Age > 60 yrs: 1--> Age > 60 years IMPROVE SCORE: 2 Code Status and Disposition CODE STATUS: Full DISPOSITION: ICU I spent 55 minutes of Critical Care time in multiple visits throughout the day for collaboration/coordination of care exclusive of time spent performing separately billable medical procedures. I affirm that this patient is critically ill and at high risk for sudden, fatal deterioration due to one or more of the above active issues. I managed/supervised life- or organ-supporting interventions that require frequent physician assessment and reassessment. Critical care time was spent, but not limited to, the review of laboratory test results, medications, relevant radiology and discussing this critically ill patient's care with other medical staff in the unit or at the nursing station ont floor where the patient is located. My full attention was given to the management of this patient and I was immediately available during this same time. Objective SpO2:98 %,O2 Device: high flow mask, Flow (L/min) (Oxygen Therapy): 50, Oxygen Concentration (%): (S) 90 (pt desated) Oxygen Concentration (%) (Drager V500): 90 Temp Last 24 hrs: Temp Min: 96.9 ??F (36.1 ??C) Max: 102 ??F (38.9 ??C) WBC Trend White Blood Cell Count Date Value Ref Range Status 09/08/2024 14.2 (H) 4.0 - 11.0 Thou/uL Final 09/07/2024 16.5 (H) 4.0 - 11.0 Thou/uL Final Last Vitals: Pulse:76, Resp:(!) 28, BP:BP Min: 56/34 Max: 176/70 MAP: 86 mm Hg Physical Exam: General: alert, appears stated age and cooperative HEENT: supple without LAD Lungs: clear to auscultation bilaterally Chest wall: no tenderness Heart: regular rate and rhythm, S1, S2 normal, no murmur, click, rub or gallop Abdomen: soft, non-tender; bowel sounds normal; no masses, no organomegaly Extremities: atraumatic, no cyanosis or edema Neuro: non focal Skin: Warm, no rash I reviewed the prescribed Medications and new Laboratory Blood Work I reviewed all new Imaging Studies (actual images) and compared to prior where applicable Sign: Danny Barr MD 09/08/2024 1:43 PM * Yobany Garvey, DO - 09/08/2024 7:20 AM EDT ENT Progress Note Subjective: No acute events overnight, per nursing patient has remained agitated requiring soft mitt restraints. Has to frequently be re-directed. Objective: Temp: [96.9 ??F (36.1 ??C)-102 ??F (38.9 ??C)] 100.6 ??F (38.1 ??C) Pulse: [76-146] 80 Resp: [22-42] 36 BP: (104-177)/(57-97) 126/60 I/O last 3 completed shifts: In: 1299.3 [I.V.:296.3; Blood:203; IV Piggyback:800] Out: 905 [Urine:905] Physical Examination: NAD, alert, disoriented Left eye cellulitic changes, edema Right ear with wick in place Easy work of breathing, no stridor or stertor Labs: Lab Results Component Value Date WBC 14.2 (H) 09/08/2024 HGB 10.9 (L) 09/08/2024 HCT 31.2 (L) 09/08/2024 MCV 89 09/08/2024 PLT 9 (LL) 09/08/2024 Lab Results Component Value Date CALCIUM 8.2 (L) 09/08/2024 NA 143 09/08/2024 K 4.0 09/08/2024 CO2 20 (L) 09/08/2024 CL 112 (H) 09/08/2024 BUN 49 (H) 09/08/2024 Assessment: 63 y.o. male with alcohol and tobacco use history presenting to OSH initially for left eye swellingand right ear pain. He has findings consistent with left sided cavernous sinus thrombosis. Overall,he has no paranasal sinus disease on CT scan and normal nasal endoscopy which makes sinonasal source of infection very unlikely. Would recommend continued management for eye findings per other consulting services. Additionally he has clinical findings consistent with right sided otitis externa and media based onCT scan. There is no clinical evidence of mastoiditis. We do not think this is related to his eye pathology. Plan: -Appreciate care per primary team -Follow-up CT IAC w/ contrast -Follow-up ear culture -Continue ciprodex gtts, remainder of abx per ID recommendations -Appreciate ophthalmology recommendations -Please page ENT environmental sampler with any questions or concerns Yobany Garvey DO Otolaryngology Cosigned by Jose Pond MD at 09/08/2024 8:09 AM EDT * Marie Chamberlain PA-C - 09/08/2024 6:13 AM EDT Critical Care Progress Note Afternoon addendum: Blood cultures (both sets) at OSH growing GNR. Per Dr. Michaud d/c vyvox, flagyl and cefepime and start meropenem. Subjective Overnight events: - patient with increasing agitation. Received morphine 1mg w/o relief, started on precedex gtt currently at 1.5 - proBNP 5786; diuresed with Lasix 20 IV - received 1 unit plt for plt 9 Assessment & Plan Assessment Mariah Masterson is a 63 year old male with PMHx of depression, alcohol abuse, tobacco use who presented to OSH for concern of left eye swelling and right ear pain. He was ultimately transferred to for ENT, ophthalmology, ID, neuro consults. He was admitted for further management of cavernous sinus thrombosis with course complicated by worsening hypoxia with concern for ARDS. Principal Problem: Acute cerebral venous sinus thrombosis LOS: 1 day Plan by system Neuro: AMS, agitation, cavernous sinus thrombosis, Hx depression, tobacco use, ETOH use (in remission 15 years) - Mental status: alert but confused, agitated throughout the night - s/p morphine for agitation with minimal effect - started on precedex gtt (currently @ 1.5) - started on nicotine patch - Per sister, pt with slightly altered mental status - Holding home paroxetine and risperidone - SW consulted for help with HCR (daughter next of kin but estranged 30 years; mom and sister in chart) - patient had CT head, brain YAHIR, and head/brain venography at OSH; significant findings as below - neuro consulted for cavernous sinus thrombosis; continue with IV abx; anticoagulation typically mainstay of treatment but cannot be started 2/2 pt's low plt - Neuro to review with IR to determine if additional imaging will be necessary - repeat CT head w/o contrast ordered given change in mental status overnight CT Head at OSH CT head with abnormal findings in the right mastoid air cells, middle and external ear. Favor otitis media, externa with soft tissue asp status and mastoiditis. MRV at OSH with normal flow related enhancement in the major cortical and dural venous sinuses. CT A/P with hepatosplenomegaly, distended gallbladder, thickening of the adrenal glands, bilateral perinephric stranding, distended stomach with air- fluid level. MRI Brain (at OSH): 1. Abnormalities of the left orbit including mild enlargement of the extraocular muscles, mild edema throughout the intra and extra conal fat, loss of the normal flow-void of the superior ophthalmic vein, mild enlargement of the left superior ophthalmic vein, minimal left lobe proptosis and left preseptal soft tissue edema. There may be thrombosis of the left superior ophthalmic vein. These findings all highly suggest left cavernous sinus thrombosis. 2. Right mastoid tympanic space effusion andcerumen impaction in the right external auditory canal. 3. Edema and swelling throughout the right temporalis muscle and involving the right > left muscles of mastication of uncertain etiology, direct extension of right mastoiditis is a consideration as is right cavernous sinus thrombosis. 4. High signal within the right sphenoid parietal sinus is also present suggesting thrombosis. ENT: Left eye swelling, right sided otitis externa and media, right quaker swelling - Patient with left eye swollen shut - Ophthalmology consulted, given no light perception in left eye, poor visual prognosis; no acute interventions recommended to help with left eye vision - No evidence of right eye involvement - Per ophtho, left vision loss maybe likely to thrombosis disrupting blood-flow or involvement of the orbital apex or posterior ischemic optic neuropathy given unremarkable fundus exam, normal IOP (22) and non-edematous optic nerve - Pt stated he has hx of chronic right ear pain and will often instill hydrogen peroxide and clean out ear with qtip - ENT consulted, no surgical intervention at this time - recommend CT IAC with contrast; ordered - Continue ciprodex drops for right ear - No clinical evidence of mastoiditis Behavioral/Sedation scales CAM-ICU Delirium Present: Negative Dwyer Agitation Sedation Scale (RASS) / Modified RASS: -2-->Wakes slowly, very drowsy/light sedation Resp: Hypoxia with concern for ARDS, cannot r/o DAH - SpO2 88-98% on high flow - desaturates to 70s off O2 - VBG 7.38/37/49/22 (7.38/35/46/22) - mixed venous 83.5 - proBNP 5786; will repeat - diuresed with Lasix 20 IV overnight; will diurese again today with Lasix 40 IV - Continue solumedrol 40 IV q8h - CT Thorax ordered - CXR this AM with worse diffuse alveolar process ECHO at OSH: Hyperdynamic LVEF greater than 70% with impaired relaxation filling pattern. At least moderately dilated left atrium. Calcified aortic valve changes noted with mean gradient of 32 mmHg with a calculated valve area in mild stenosis range suggestive of overall probably increase flow through the aortic valve due to higher stroke volume. Calcific mitral valve changes noted with possible mild mitral stenosis. Mildly dilated ascending aorta 3.7cm. No gross pericardial effusion. Current Ventilator/Noninvasive Ventilator/Oxygen Settings O2 Device: (S) high flow mask Oxygen Concentration (%): 90 Flow (L/min) (Oxygen Therapy): (S) 50 CV: SVT, prolonged QTC - HR 70s-140s SBP 100s-170s - HST 22 - run of SVT at OSH into the 210s; and 190s upon arrival to MICU; both non- sustained; patient converted to NSR on his own - If patient were to have sustained SVT, can push adenosine - ECG 09/08 NSR RBBB QTC 505 - ECHO ordered; will call OSH for their ECHO results Hemodynamic Parameters GI: Lactic acidosis - Diet: NPO - will establish PO access and consult nutrition for tube feeds - started on IV PPI while NPO - Lactic acid 1.9 (5.1 at OSH) - tbili 2.6 dbili 1.9 AST/ALT and alk phos wnl here - CT A/P at OSH with hepatosplenomegaly, distended gallbladder, thickening of the adrenal glands, bilateral perinephric stranding, distended stomach with air- fluid level. - Per chart from OSH, report of stool that was dark and tarry 2 days prior - guaiac positive at OSH ED - will monitor for signs of bleeding Renal: No active issues - BUN/Cr 49/1.1 (45/1.0) - Na 143 (141) - K 4.0 (3.6) - Mag 2.5 (2.3) - phos 3.2 (3.3) - inserted early for urinary retention overnight, pt endorsing he could not urinate - UOP 900cc net + 400cc/24hrs and LOS - received fluids (sepsis bolus) and albumin at OSH Early: yes Early indication: Urinary Retention Intake & Output Intake/Output Summary (Last 24 hours) at 09/08/2024 0613 Last data filed at 09/08/2024 0600 Gross per 24 hour Intake 1299.32 ml Output 905 ml Net 394.32 ml Endo: No active issues - FS 100s-140s - check FS q4h while NPO - hypoglycemia protocol - check A1C - TSH 0.80 Heme/Onc: Thrombocytopenia - H/H 10.9/31.2 ( 11.6/33.7) - Plt 9 (10); given 1 unit plt overnight - Plt goal >20 - received 2 units plt at OSH - PT 14.4 PTT 27 - INR 1.3 - fibrinogen 579 (550) - thrombin time 12.2 - RBC morphology at OSH 3+ microcytosis, 3+ marcelino cells, 3+ schistocytes - will check haptoglobin, LDH, reticulocyte, red blood cell morphology - will consult heme for thrombocytopenia - Duplex LE with no DVT; will also get upper extremity duplex - chemical ppx and SCD contraindicated with low plt count Lower Extremity Doppler 09/08/24: Bilaterally, the duplex ultrasound of the lower extremities demonstrates normal Doppler flow with no thrombus seen in patterson scale. Findings are not consistent with the presence of deep vein thrombosisbilaterally. ID: Leukocytosis, possible PNA, HEENT infection - tmax 102 tcurrent 100.6 - received IV tylenol for fevers - WBC 14.2 (16.5) - UA at OSH positive for nitrites and trace LE no bacteria - right ear culture pending at OSH - right ear culture here no growth to date - blood and urine cultures pending at OSH - blood cultures (09/07) in process - MRSA swab (09/07) negative - fluvid negative - ordered urine strep/legionella - Dr. Michaud following - Blood cultures (both sets) at OSH growing GNR. Per Dr. Michaud d/c vyvox, flagyl and cefepime and start meropenem. -s/p vanco, zosyn and ceftriaxone at OSH Vascular access: PIV IV access Mobility: Progressive Mobility Level Achieved: Level 0,PT/OT: Yes GI PPx: PPI IV DVT PPx: None VTE Risk Assessment VTE Time Out IMPROVE SCORE: 2 (09/07/2024 5:40 PM) Interpretation - High Risk Chemical Prophylaxis Chemical VTE prophylaxis NOT ordered. Click here to order if appropriate Chemical Prophylaxis Contraindication: Yes, secondary to Thrombocytopenia (Platelet count less than50,000) Mechanical Prophylaxis Mechanical VTE prophylaxis NOT ordered. Click here to order if appropriate Mechanical Prophylaxis Contraindication: Yes, secondary to Other (Please Specify): thrombocytopenia Drips: dexmedeTOMIDine (PRECEDEX) IV infusion, 0.2-1.5 mcg/kg/hr, Last Rate: 1.2 mcg/kg/hr (09/08/24 0600) Lines: Peripheral IV - Single Lumen (Adult) 09/07/24 1600 median vein (underside of arm), right 20 gauge (Active) Number of days: 1 Peripheral IV - Single Lumen (Adult) 09/07/24 2200 median vein (underside of arm), right 20 gauge (Active) Number of days: 1 Enteric Access and Early: Urethral Catheter (Adult) 09/07/24 2200 10 mL balloon inflation volume (Active) Number of days: 1 Restraints: bilateral mitts and soft wrists Interference with medical treatment Code: FULL Dispo: ICU, per Dr. Barr Objective Last Vitals: Pulse:95, Resp:(!) 38, BP:BP Min: 104/61 Max: 177/97 MAP: 86 mm Hg SpO2:(!) 88 % CVP: Temp Last 24 hrs: Temp Min: 96.9 ??F (36.1 ??C) Max: 102 ??F (38.9 ??C) Physical Exam: General appearance: adult male, laying in bed, intermittently agitated HEENT: left eye swollen shut, no light perception; right eye involvement. Mild swelling over right quaker region Lungs: coarse and diminished lung sounds throughout bilaterally Heart: tachycardic, normal rhythm no murmurs Abdomen: hypoactive bowel sounds, abdomen soft, non-tender non-distended Extremities: no edema to lower or upper extremities Neurologic: PERRL, patient alert but not following commands Labs: Recent Labs 09/07/24 1636 09/08/24 0117 WBC 16.5* 14.2* HGB 11.6* 10.9* HCT 33.7* 31.2* PLT 10* 9* MCV 90 89 MCH 30.9 31.2* MCHC 34.4 34.9 RDW 13.4 13.6 MONOABS 0.3 -- Recent Labs 09/07/24 1636 09/07/24 2151 09/08/24 0117 BUN 45* -- 49* CREAT 1.0 -- 1.1 NA 141 -- 143 K 3.6 -- 4.0 CO2 21* 22 20* CL 109* -- 112* MG 2.3 -- 2.5 PHOS 3.3 -- 3.2 AST 43 -- -- ALT 18 -- -- PROT 5.2* -- -- Recent Labs 09/07/24 1703 09/08/24 0132 PTT 30 27 INR 1.3 1.3 Medications Medication/MAR Report: Medications Scheduled Medication Ordered Dose/Rate, Route, Frequency Last Action cefepime (MAXIPIME) 2 g in sodium chloride-MBP (NS) 100 mL IVPB-MBP 2 g, IV, Q8H New Bag, 2 g at 09/08 0158 chlorhexidine gluconate 2 % wipes - urethral catheter CHG application No Dose/Rate, TOP, Daily Ordered ciprofloxacin-dexAMETHasone (CIPRODEX) 0.3-0.1 % otic suspension 4 drop 4 drop, RIGHT EAR, BID Given, 4 drop at 09/07 2116 linezolid (ZYVOX) IVPB 600 mg in 300 mL D5W (premix) 600 mg, IV, Q12H New Bag, 600 mg at 09/07 2142 methylPREDNISolone sodium succinate (SOLU-Medrol) injection 40 mg 40 mg, IV, Q8H ZO Given, 40 mg at 09/08 0525 metroNIDAZOLE (FLAGYL) IVPB 500 mg in 100 mL NS (premix) 500 mg, IV, Q12H New Bag, 500 mg at 09/08 0525 nicotine (NICODERM CQ) 21 MG/24HR patch 1 patch 1 patch, TD, Daily Ordered senna-docusate (SENNA-S) 8.6-50 MG tablet 2 tablet 2 tablet, PO, Nightly Ordered sodium chloride (NS) 0.9 % infusion - ADS Override Pull No Dose/Rate Ordered Continuous Medication Ordered Dose/Rate, Route, Frequency Last Action dexmedeTOMIDine (PRECEDEX) IV infusion 400 mcg in 100 mL NS (premix) 0.2-1.5 mcg/kg/hr, IV, Titrated Rate/Dose Verify, 1.2 mcg/kg/hr at 09/08 0600 PRN Medication Ordered Dose/Rate, Route, Frequency Last Action bisacodyl (DULCOLAX) suppository 10 mg 10 mg, RE, Daily PRN Ordered dextrose 50 % solution 12.5 g (Or Linked Group #1) 12.5 g, IV, Q15 Min PRN Ordered dextrose 50 % solution 25 g (Or Linked Group #1) 25 g, IV, Q15 Min PRN Ordered glucagon (GLUCAGEN) injection 1 mg (Or Linked Group #1) 1 mg, IM, Daily PRN Ordered glucose (GLUTOSE 15) 40 % oral gel 37.5 g (Or Linked Group #1) 1 Tube, PO, Q15 Min PRN Ordered glucose (GLUTOSE 15) 40 % oral gel 75 g (Or Linked Group #1) 2 Tube, PO, Q15 Min PRN Ordered lactulose (ENULOSE) 10 gm/15 mL solution 20 g 30 mL, PO, Q4H PRN Ordered naloxone (NARCAN) 0.4 mg/mL injection 0.4 mg 0.4 mg, IV, Q5 Min PRN Ordered Sign: Marie Chamberlain PA-C 09/08/2024 6:13 AM documented in this encounter H&P Notes * Marie Chamberlain PA-C - 09/07/2024 6:15 PM EDT CRITICAL CARE HISTORY & PHYSICAL Admit Date: 09/07/2024 4:10 PM Patient's Primary Care Physician: No primary care provider on file. Subjective Chief Complaint 63 year old male with PMHx of depression, alcohol use in remission x15 years, tobacco use (25 years) presenting with left eye swelling and right ear pain. History of Present Illness Patient is a 63-year-old male with past medical history of depression, alcohol abuse in remission x15 years, tobacco use ([id number]) who initially presented to [facility] via EMS withaltered mental status, left eye swelling, tongue swelling and severe right ear pain. Patient statessymptoms started Wednesday evening after getting out of work. 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 Per his family he has been sleeping more since that time. Symptoms started with a headache and right ear pain. Patient cannot see out of his left eye. Patient's sister came to see him today and called [phone] becauseshe felt he needed to be seen. At [facility] temp 101, self-limited SVT to 210s, HD stable and placed on oximask to maintain O2 sats. WBC 10.2, platelets 7, fibrinogen > 700, D-dimer 1,650, lactic acid 5.1-->3.6. RBC morphology 3+ microcytosis, 3+ marcelino cells, 3+ schistocytes. UA negative. Fluvid negative. Occult stool positive for blood. He received IVF and albumin. He was treated with Vanco, Zosyn and ceftriaxone. CT chest with evidence of aspiration or endobronchial pneumonia. CT head with abnormal findings in the right mastoid air cells, middle and external ear. Favor otitis media, externa with soft tissue asp status and mastoiditis. MRI brain all highly suggest left cavernous sinus thrombosis. ENT at [facility] was consulted and reviewed the case but did not feel the patientrequired transfer as surgery is not indicated and patient did not have mastoiditis. [facility] ENT recommending treatment with IV antibiotics alone. He was ordered for meropenem, vancomycin, caspofungin. He was ultimately transferred to [facility] for ENT, ophthalmology, infectious diease, neurology consults. On arrival to he was increasingly hypoxic requiring hi-flow oxygen. CXR with diffuse alveolar process. Review of Systems Constitutional: negative for chills, fevers, night sweats, fatigue, generalized weakness Eyes: positive for inability to see out of his left eye Ears, nose, mouth, throat, and face: positive for sinus pain, pus like drainage out of his right ear Respiratory: negative for dry cough, dyspnea on exertion, paroxysmal nocturnal dyspnea, productive cough, sputum and wheezing Cardiovascular: negative for chest pain, dyspnea, and lower extremity edema Gastrointestinal: negative for abdominal pain, diarrhea and nausea/vomiting, melena, hematochezia Genitourinary: negative for dysuria, suprapubic discomfort, increased urinary frequency, foul odor Integument/breast: negative for rash Hematologic/lymphatic: negative for lymphadenopathy, some bruising on left anterior espinoza Neurological: negative for gait problems and focal weakness Behavioral/Psych: negative for behavior problems Objective Past History No past medical history on file. No past surgical history on file. No family history on file. Social History Tobacco Use Smoking status: Not on file Smokeless tobacco: Not on file Substance Use Topics Alcohol use: Not on file Allergies Allergies[1] Home Medications FLUoxetine (PROzac) 40 MG capsule Take 1 capsule (40 mg total) by mouth daily. risperiDONE (RisperDAL) 0.5 MG tablet Take 1 tablet (0.5 mg total) by mouth 2 (two) times a day. Physical Exam Pulse:100,Resp:(!) 34,BP:(!) 157/73,SpO2:94 %,O2 Device: (S) high flow nasal cannula (per order), Flow (L/min) (Oxygen Therapy): (S) 40, Oxygen Concentration (%): (S) 80 Weight:95.9 kg (211 lb 6.7 oz) Temp Last 24 hrs: Temp Min: 96.9 ??F (36.1 ??C) Max: 96.9 ??F (36.1 ??C) General: adult male, alert, on NRB, able to engage in conversation Head: Left eye swollen shut. Mild swelling to right quaker region. No tenderness over mastoid bilaterally. Throat: lips, mucosa, and tongue normal; teeth and gums normal Neck: no adenopathy, no JVD and supple, symmetrical, trachea midline Lungs: lung sounds diminished bilaterally Chest wall: no tenderness Heart: tachycardic rate, normal rhythm, S1, S2 normal, no murmur, click, rub or gallop Abdomen: soft, non-tender; hypoactive bowel sounds; no masses, no organomegaly Extremities: extremities normal, atraumatic, no cyanosis or edema Pulses: 2+ and symmetric Skin: Skin color, texture, turgor normal. No rashes or lesions Lymph nodes: Cervical, supraclavicular, and axillary nodes normal. Neurologic: grossly normal, A+O x3 Labs: No results for input(s): WBC , HGB , HCT , PLT , MCV , MCH , MCHC , RDW , LYMPHABS , MONOABS , BASOABS in the last 72 hours. Invalid input(s): NEUTP , LYMPHP , MONOSP , EOSP , BASOP , NEUTABS , EOSA BS Recent Labs 09/07/24 1636 BUN 45* CREAT 1.0 NA 141 K 3.6 CO2 21* CL 109* MG 2.3 PHOS 3.3 AST 43 ALT 18 PROT 5.2* Recent Labs 09/07/24 1703 PTT 30 INR 1.3 Notable labs are: Lab Results Component Value Date WBC 16.5 (H) 09/07/2024 HGB 11.6 (L) 09/07/2024 HCT 33.7 (L) 09/07/2024 PLT 10 (LL) 09/07/2024 Lab Results Component Value Date NA 141 09/07/2024 K 3.6 09/07/2024 CL 109 (H) 09/07/2024 CO2 21 (L) 09/07/2024 BUN 45 (H) 09/07/2024 CREAT 1.0 09/07/2024 GLUC 92 09/07/2024 ANIONGAP 11 09/07/2024 No results found for: LACTIC Imaging: MRI brain at OSH 1. Abnormalities of the left orbit including mild enlargement of the extraocular muscles, mild edema throughout the intra and extra conal fat, loss of the normal flow-void of the superior ophthalmic vein, mild enlargement of the left superior ophthalmic vein, minimal left lobe proptosis and left preseptal soft tissue edema. There may be thrombosis of the left superior ophthalmic vein. These findings all highly suggest left cavernous sinus thrombosis. 2. Right mastoid tympanic space effusion andcerumen impaction in the right external auditory canal. 3. Edema and swelling throughout the right temporalis muscle and involving the right > left muscles of mastication of uncertain etiology, direct extension of right mastoiditis is a consideration as is right cavernous sinus thrombosis. 4. High signal within the right sphenoid parietal sinus is also present suggesting thrombosis. MRV brain at OSH with normal flow related enhancement in the major cortical and dural venous sinuses. CT A/P with hepatosplenomegaly, distended gallbladder, thickening of the adrenal glands, bilateral perinephric stranding, distended stomach with air- fluid level. Assessment & Plan Assessment This is a 63 year old male with PMHx of depression, alcohol abuse in remission x15 years, tobacco use (25 pack year) who initially presented to OSH for AMS, left eye swelling, tongue swelling and severe right ear pain. Upon arrival, patient febrile, tachycardic, hypoxic with concern for sepsis in the setting of HEENT infection. Patient transferred to for higher acuity level of care requiring consultants OSH did not have. Principal Problem: Acute cerebral venous sinus thrombosis LOS: 0 days Plan by system Neuro: Hx depression, tobacco use, ETOH use (in remission 15 years) - Mental status: alert and oriented x3 - Per sister, pt with slightly altered mental status - Holding home paroxetine and risperidone - SW consulted for help with HCR (daughter next of kin but estranged 30 years; mom and sister in chart) - patient had CT head, brain YAHIR, and head/brain venography at OSH - neuro consulted MRV at OSH with normal flow related enhancement in the major cortical and dural venous sinuses. CT A/P with hepatosplenomegaly, distended gallbladder, thickening of the adrenal glands, bilateral perinephric stranding, distended stomach with air- fluid level. MRI Brain (at OSH): 1. Abnormalities of the left orbit including mild enlargement of the extraocular muscles, mild edema throughout the intra and extra conal fat, loss of the normal flow-void of the superior ophthalmic vein, mild enlargement of the left superior ophthalmic vein, minimal left lobe proptosis and left preseptal soft tissue edema. There may be thrombosis of the left superior ophthalmic vein. These findings all highly suggest left cavernous sinus thrombosis. 2. Right mastoid tympanic space effusion andcerumen impaction in the right external auditory canal. 3. Edema and swelling throughout the right temporalis muscle and involving the right > left muscles of mastication of uncertain etiology, direct extension of right mastoiditis is a consideration as is right cavernous sinus thrombosis. 4. High signal within the right sphenoid parietal sinus is also present suggesting thrombosis. ENT: Left eye swelling, right ear pain, right quaker swelling - Patient with left eye swollen shut - Pt stated he has hx of chronic right ear pain and will often instill hydrogen peroxide and clean out ear with qtip - ENT consulted, appreciate recs - Ophthalmology consulted, appreciate recs Behavioral/Sedation scales CAM-ICU Delirium Present: Negative Dwyer Agitation Sedation Scale (RASS) / Modified RASS: +1-->restless Resp: Hypoxia with concern for ARDS, cannot r/o DAH - SpO2 94-97% on high flow nasal cannula - desaturates to 70s off O2 - ABG at OSH 7.36/37/68/21 - start solumedrol 40 IV q8h - ordered proBNP Current Ventilator/Noninvasive Ventilator/Oxygen Settings O2 Device: (S) high flow nasal cannula (per order) Oxygen Concentration (%): (S) 80 Flow (L/min) (Oxygen Therapy): (S) 40 CV: SVT (self limited) - HR 90s-100s SBP 130s-150s - run of SVT at OSH into the 210s; converted to sinus rhythm and did not require adenosine - run of SVT to 190s upon arrival to MICU; self limited; converted to NSR - ECG at OSH NSR RBB PACs QTC 503 - ECHO ordered Hemodynamic Parameters GI: Lactic acidosis - Per chart from OSH, report of stool that was dark and tarry 2 days prior - guaiac positive at OSH ED - Lactic acid 5.1 at OSH - Repeat lactate here - tbili 3.1 dbili 2.2 AST/ALT 38/26 alk phos 221 at OSH - CT A/P at OSH with hepatosplenomegaly, distended gallbladder, thickening of the adrenal glands, bilateral perinephric stranding, distended stomach with air- fluid level. Renal: No active issues - received fluids (sepsis bolus) and albumin at OSH - BMP pending Early: no Early indication: N/A Intake & Output Intake/Output Summary (Last 24 hours) at 09/07/2024 181 Last data filed at 09/07/2024 1810 Gross per 24 hour Intake 215 ml Output 200 ml Net 15 ml Endo: No active issues - check FS q4h while NPO - hypoglycemia protocol - check A1C Heme/Onc: Thrombocytopenia - H/H pending - Plt pending - coags ordered - Ddimer at OSH 1650 - Plt 7 at OSH; s/p 2 units plts - Plt goal >20 - at OSH PT 15.1 INR 1.3 fibrinogen >700 ID: Leukocytosis, possible PNA, HEENT infection - tmax 101 at OSH tcurrent 96.9 - WBC at OSH 10.2 - UA at OSH positive for nitrites and trace LE no bacteria - received vanco, zosyn, ceftriaxone at OSH - right ear culture pending at OSH - blood and urine cultures pending at OSH - blood cultures pending here - Dr. Michaud following - started on vyvox, flagyl, and cefepime per ID Vascular access: PIV IV access Mobility: Progressive Mobility Level Achieved: Level 0, PT/OT: Yes GI PPx: None DVT PPx: PAS VTE Risk Assessment VTE Time Out IMPROVE SCORE: 2 (09/07/2024 5:40 PM) Interpretation - High Risk Chemical Prophylaxis Mechanical Prophylaxis Drips: Lines: Peripheral IV - Single Lumen (Adult) 09/07/24 1600 20 gauge (Active) Number of days: 0 Peripheral IV - Single Lumen (Adult) 09/07/24 1600 median vein (underside of arm), right 20 gauge (Active) Number of days: 0 Enteric Access and Early: Restraints: bilateral soft wrist Interference with medical treatment Code: FULL Dispo: ICU per Dr. Barr Critical Care Time Spent: 90 minutes; Discussed with Dr. Danny Barr Sign Marie Chamberlain PA-C 09/07/2024 6:15 PM [1] No Known Allergies Cosigned by Danny Barr MD at 09/08/2024 2:12 PM EDT Associated attestation - Danny Barr MD - 09/08/2024 2:12 PM EDT Reviewed documented in this encounter Procedure Notes * Pierre Worthy RN - 09/20/2024 3:08 PM EDTAssociated Order(s): DHT insertion DHT insertion Date/Time: 09/20/2024 3:08 PM Performed by: Pierre Worthy RN Authorized by: Renee Pereyra DO Consent: Written consent obtained Risks and benefits: risks, benefits and alternatives were discussed Consent given by: power of health care attorney Patient states understanding of procedure being [...] to verify the correct patient, procedure, equipment, youth support worker and site/side marked as required. Local anesthesia used: no Anesthesia: Local anesthesia used: no Patient tolerance: patient tolerated the procedure well with no immediate complications PROCEDURE: Insertion of a Dobhoff Feeding Tube (DHT) CLINICAL INDICATION: Enteral Nutrition Administration CONSENT: Chart review was performed prior to approaching patient, including: allergies; pertinent imaging studies/lab results; prior history of feeding tube placements; current or past facial trauma contraindicating bedside DHT placement; any prior history of gastrointestinal surgeries: and to assure consent was obtained from patient/family by provider and a signed consent form documenting the discussion was placed in the medical record. TECHNIQUE: Procedure began with proper identification of patient using two patient identifiers. Proper PPE used, including clean gloves, mask and eye shield as needed based on clinical judgement. Patient information entered into [employer] monitor followed by placement of the [employer] at the region of the xiphoid process. After the tip of the 10 FR DHT was lubricated with water soluble lubricant, the tube was inserted via the RIGHT nares. The DHT was slowly advanced and traced using [employer] real-time tracing. The DHT was placed in DUODENUM region per provider order. No evidence of inadvertant lung cannulation. The stylet wire was removed intact. DHT visualized for location at the nares - 96 cm. DHT secured using BRIDLE. Patient DID tolerate procedure well. NUMBER OF INSERTION ATTEMPTS: 1 SECURED AT: 96 cm IMPRESSION: Successful placement of a 10 FR DHT via the RIGHT nares into the DUODENUM region KUB required to verify proper tip placement prior to use Order required from provider indicating DHT is OK to use once radiographic image reviewed Education provided on need for DHT placement, signs and symptoms of potential complications that need to be reported, proper care and maintenance * Kira Love MD - 09/17/2024 9:12 AM EDTAssociated Order(s): EEG LONG-TERM MONITORING ADULT INPATIENT CONTINUOUS VIDEO-EEG MONITORING (LTM) REPORT Facility: [facility] Patient and : Mariah Masterson 1960 Date of Procedure: 09/17/2024 Admission Attending: Danny Barr MD Recording begun at 08:35 hrs on 09/16/2024 and is ongoing continuously unless otherwise noted. CLINICAL INFORMATION: The patient is a 64 y.o. male undergoing continuous EEG to evaluate concern for seizures. SEIZURE MEDICATIONS: ketamine RECORDING CONDITIONS: Continuous VEEG monitoring was performed. Electrodes were applied according to the International 10-20 System. Data were obtained, stored, and interpreted according to ACNS guidelines (J Clin Neurophysiol 2006;23(2):85-183) utilizing referential montage recording, with reformatting to longitudinal, transverse bipolar, and referential montages as necessary for interpretation,along with digital/automated EEG analysis of Jefry and Event detections. Patient tolerated procedure without issue. DESCRIPTION OF DAILY EEG AND EVENTS: Monitoring Day 1: 09/16/2024 Posterior Activity: No posterior dominant rhythm. Background Activity: The background was symmetric and continuous consisting of predominantly normalvoltage, theta and delta frequencies; anterior-posterior organization was absent. Reactivity/Variability/Sleep: Reactivity and state changes were present; no clear stage II architecture. Focal Slowing: None. Interictal Epileptiform Abnormalities: None. Seizures/Events: None. Other: N/A. ECG: No notable ECG abnormalities were apparent. Monitoring Day 2: 09/17/2024 Posterior Activity: No posterior dominant rhythm. Background Activity: The background was symmetric and continuous consisting of predominantly normalvoltage, theta and delta frequencies; anterior-posterior organization was [...] on 09/16/2024 through 09:55 hrs on 09/17/2024. ATTESTATION: This EEG was continuously available for review and interpretation. EEG was reviewed and the note updated at least daily for the duration of the recording period, and results provided to the neurology team providing direct patient care. FOR EEG LAB USE: Abnormal EEG: INTERICTAL ABNORMAL: Encephalopathy severe (!qxz&v8); Focal Slowing None (!qxz&v12); Epileptiform Interictals: None (!qxz&v12) No events (!qxz&v21, !qxz&v34, !qxz&v47, !qxz&v49) Kira Sena MD. [facility] * Kira Love MD - 09/16/2024 6:55 PM EDTAssociated Order(s): EEG LONG-TERM MONITORING ADULT INPATIENT CONTINUOUS VIDEO-EEG MONITORING (LTM) REPORT Facility: [facility] Patient and : Mariah Masterson 1960 Date of Procedure: 09/16/2024 Admission Attending: Danny Barr MD Recording begun at 08:35 hrs on 09/16/2024 and is ongoing continuously unless otherwise noted. CLINICAL INFORMATION: The patient is a 64 y.o. male undergoing continuous EEG to evaluate concern for seizures. SEIZURE MEDICATIONS: ketamine RECORDING CONDITIONS: Continuous VEEG monitoring was performed. Electrodes were applied according to the International 10-20 System. Data were obtained, stored, and interpreted according to ACNS guidelines (J Clin Neurophysiol 2006;23(2):85-183) utilizing referential montage recording, with reformatting to longitudinal, transverse bipolar, and referential montages as necessary for interpretation,along with digital/automated EEG analysis of Jefry and Event detections. Patient tolerated procedure without issue. DESCRIPTION OF DAILY EEG AND EVENTS: Monitoring Day 1: 09/16/2024 Posterior Activity: No posterior dominant rhythm. Background Activity: The background was symmetric and continuous consisting of predominantly normalvoltage, theta and delta frequencies; anterior-posterior organization was [...] FINAL UNTIL THE EEG HAS STOPPED RECORDING. AN OVERALL IMPRESSION AND CLINICAL CORRELATION WILLTHEN BE ADDED TO THE END OF THIS REPORT. FOR QUERIES CONTACT THE NEUROLOGY CARE TEAM. Kira Sena MD. [facility] * Milind Reyes MD - 2024 10:32 AM EDTAssociated Order(s): EEG ROUTINE INPATIENT ADULT ELECTROENCEPHALOGRAM (EEG) REPORT Facility: [facility] Patient and : Mariah Masterson 1960 Date of Procedure: 2024 Admission Attending: Danny Barr MD CLINICAL INFORMATION: EEG is requested in a 64 y.o. male to evaluate events of unclear etiology.. SEIZURE MEDICATIONS: primidone RECORDING CONDITIONS: This is a intubated and sedated routine EEG performed at the inpatient bedside. The standard International 10-20 System of electrode placement was utilized, with a minimum of 20electrodes and additional channels monitored for eye movement. [...] was symmetric and continuous consisting of predominantly mediumvoltage (50-149 uV), delta frequencies; anterior-posterior organization was absent. Sleep Activity: [...] inpatient bedside routine EEG for age during an indeterminate partially responsive state due to: 1) Background abnormalities including Marked diffuse slowing. Reported episodes of right hand tremor, twitching of extremities. Video wasnot available to review. No EEG change from baseline except movement and muscle artifact. CLINICAL CORRELATION: This EEG is suggestive of a nonspecific, severe encephalopathy. Nonepileptic episodes as described above however interpretation was limited due to lack of video review. 2VAPOR0M Brief ictal rhythmic discharges (BIRDs) NO 0 Lateralized periodic discharges (LPDs) OR lateralized rhythmic delta activity (LRDA) OR bilateral independent periodic discharges NO 0 Prior seizure NO 0 Sporadic epileptiform discharges NO 0 Frequency greater than 2 Hz for any periodic or rhythmic pattern NO 0 Presence of PLUS features (superimposed, rhythmic, sharp, or faster activity) NO 0 [id number] TOTAL SCORE: 0 (5% SZ [!2H31P$2B&0]) Milind Reyes MD [facility] FOR EEG LAB USE: Abnormal Non-epileptiform :qz!02 No interictals :qz!03; No events :qz!08; Complexity ratin :qz!14 documented in this encounter Consult Notes * Elizabeth Braga RN - 09/19/2024 2:47 PM EDT Images from the original note were not included. [facility] Wound Care Consult Visit Date: 09/19/2024 Patient Name: Mariah Masterson Date of : 1960 Reason for Consult: follow-up Wound Team Summary Assessment: Coccyx extending to right buttock with maroon/purple coloration. Starting to open in places with superficial moist red bases. Surrounding erythema. Recommend Triad paste to provide an occlusive dressing for autolytic debridement, to allow moist wound healing with absorption of mild exudate, to minimize wound contamination of urine/stool or bacteria and to soothe and protect periwound skin. Cover with foam dressing to prevent friction/shear and redistribute pressure. Wound Team Plan: Re-eval 5 - 7 days Recommendations: Continue with pressure injury prevention interventions and wound care orders in place Triad paste added under foam dressing. Offloading: AMY bed, wedges and TruVue boots Wound History: Follow up today for wounding to right buttock/coccyx. Pertinent Labs: Albumin Date Value Ref Range Status 09/17/2024 2.3 (L) 3.4 - 4.8 g/dL Final No results found for: TRANSFERRIN No results found for: PREALBUMIN Wound Assessment: Wound (Adult, Obstetrics, Pediatric) 09/16/24 1149 Right medial coccyx;gluteal (Active) Dressing Appearance dry;intact 09/19/24 1400 Base purple;red;moist 09/19/24 1400 Veronica Wound Area redness;intact 09/19/24 1400 Edges irregular 09/19/24 1400 Length (cm) 4.5 cm 09/19/24 1400 Width (cm) 5.5 cm 09/19/24 1400 Depth (cm) 0.1 cm 09/19/24 1400 Wound Surface Area (cm^2) 24.75 cm^2 09/19/24 1400 Wound Surface Area (cm^2) % 40 cm^2 % 09/19/24 1400 Volume (cm^3) 2.48 cm^3 09/19/24 1400 Tunneling [Depth (cm)/Location] 0 09/19/24 1400 Undermining [Depth (cm)/Location] 0 09/19/24 1400 Drainage Amount none 09/19/24 1400 Dressing foam 09/19/24 1400 Number of days: 3 Elizabeth ARRIETA,, RN 09/19/2024 2:48 PM * Elizabeth Braga RN - 09/16/2024 11:54 AM EDT Images from the original note were not included. [facility] Wound Care Consult Visit Date: 09/16/2024 Patient Name: Mariah Masterson Date of : 1960 Reason for Consult: initial Wound Team Summary Assessment: Coccyx extending to right buttock with purple coloration, non-blanching, intact blistering in places, surrounding blanching erythema. Atypical appearance for pressure. Of note, Patient has been extremely thrombocytopenic, with platelets as low as 9 on 09/08 up to 131 yesterday, now resolved with platelets at 190 today. He continues with non-sustained VT, severe aortic stenosis and on pressors. He was intubate on 09/08 s/p desatting to 85%. He is on tube feeds. Cover with foam dressing to prevent friction/shear and redistribute pressure. Wound Team will continue to follow for final disposition/staging. Wound Team Plan: Re-eval 3 - 5 days Recommendations: 1. Routine interventions per skin Injury prevention and treatment interventions per protocol: Low air loss bed, dry flow pads under patient, Q2 turns, waffle cushion when OOB to chair, limit sit times to 1 hr (may extend to 2 hours if no sacral or posterior wounds) with frequent weight shifts. Elevate heels off bed with pillows or boots. 2. Optimize nutrition per RD recommendations. Glucose control. 3. Progress mobility per MDs orders. 4. Protective sacral foam dressing q3d and prn, remove and reapply for twice daily skin assessments Offloading: AMY bed, wedges and TruVue boots Wound History: 64 year old male transferred from [facility] for acute venous sinus thrombosis. Wound Team is consulted for skin alteration to his coccyx/right buttock. Pertinent Labs: Albumin Date Value Ref Range Status 2024 2.2 (L) 3.4 - 4.8 g/dL Final No results found for: TRANSFERRIN No results found for: PREALBUMIN Wound Assessment: Wound (Adult, Obstetrics, Pediatric) 09/16/24 1149 Right medial coccyx;gluteal (Active) Dressing Appearance dry;intact 09/16/24 1150 Base purple 09/16/24 1150 Veronica Wound Area blistered;redness 09/16/24 1150 Edges irregular;rolled/closed 09/16/24 1150 Length (cm) 5.5 cm 09/16/24 1150 Width (cm) 7.5 cm 09/16/24 1150 Depth (cm) 0 cm 09/16/24 1150 Wound Surface Area (cm^2) 41.25 cm^2 09/16/24 1150 Volume (cm^3) 0 cm^3 09/16/24 1150 Tunneling [Depth (cm)/Location] 0 09/16/24 1150 Undermining [Depth (cm)/Location] 0 09/16/24 1150 Drainage Amount none 09/16/24 1150 Dressing foam 09/16/24 1150 Number of days: 0 Elizabeth ARRIETA,, RN 09/16/2024 11:54 AM Cosigned by Lloyd Johnson MD at 09/19/2024 6:40 AM EDT * Hardy Pardo MD - 09/12/2024 1:10 PM EDT Images from the original note were not included. [facility] CARDIOLOGY TRANSFER SERVICE CONSULT/ADMISSION NOTE Date of Consult: 09/12/2024 Patient's Primary Care Physician: UNKNOWN Physician Requesting Consult: Dr. Davis Primary Shirt Sorter: [id number] Reason for Consultation: Aortic stenosis Admit Date: 09/07/2024 4:10 PM Assessment & Plan Assessment 84-year-old gentleman with prior medical history of alcohol abuse, depression, smoking, presented to the outside facility with left eye and right ear pain, found to have cavernous sinus thrombosis, referred to [facility] for further evaluation and treatment, stay complicated by ARDS, underwent echocardiogram 09/11/2024, found to have LVEF of 80, severe arctic stenosis, peak velocity 4.3 m/s, mean gradient 45.7, mitral stenosis, mean gradient of 5, cardiology consultation requested. Problems: 1. Cavernosus sinus thrombosis 2. Alcohol abuse 3. [id number] tobacco abuse 4. ARDS, patient sedated and intubated 5. Bordetella traumatic bacteremia 6. Thrombocytopenia 7. Severe aortic stenosis per echo performed on 09/11/2024, mean gradient 45.7 mmHg, peak velocity 4.3 m/s, LVEF 80%, - Vitals: 167/81 with heart rate of 97, febrile, 102, intubated and sedated - Labs: H&H 8.2 and 24.7 respectively, platelets of 55, sodium 153 potassium 4.7, BUN/creatinine and 48 and 1.0 slightly. High-sensitivity troponin 09/07/2024 at 22. 8. Anemia 9. Hypernatremia Impression: Complicated medical picture with incidental finding of severe aortic stenosis, not related to his today's presentation. Given bacteremia, thrombocytopenia, infection, bacteremia, cavernous sinus thrombosis, ARDS, aortic stenosis workup should be considered at a later stage,. I discussedthe above plan with patient's mother as well as sister. Plan - Telemetry - Continue current medical management per ICU team - Cardiology will sign off. Subjective Chief Complaint Left eye and ear pain, History of Present Illness 64-year-old gentleman with past medical history of alcohol abuse, depression, tobacco abuse, 25 pack years history who presented to the outside facility with concern of left eye swelling and right ear pain, which was abnormality transferred to [facility] for ENT ophthalmology ID and neurology consults and for the management of cavernous sinus thrombosis, complicated by hypoxia and concern ARDS, cardiology consult requested given echocardiographic findings suggestive of aortic stenosis. Intubated and sedated, most of the information provided by patient's mom and patient's sister. No significant history of chest pain, presyncopal or syncopal episodes. Patient has a 25-year history ofsmoking, history of alcohol abuse. TTE 09/11/2024. Left ventricular systolic function is hyperdynamic. The quantitative EF by 2D Stark biplane is 80%. Right ventricular systolic function is normal. There is likely severe aortic stenosis based on gradients and velocities. The continuity derived aortic valve area is less reliable in the setting of poor spectral signal. The peak velocity is 4.3 m/s and mean gradient is 45.7 mmHg. There is progressive calcific mitral stenosis. There is a mean transmitral gradient of 5 mmHg at a heart rate of 81 bpm. There is no previous study for comparison in our system. Findings Left Ventricle The left ventricle is normal in size. Concentric remodeling of the left ventricle ispresent. Left ventricular systolic function is hyperdynamic. The [...] atrial pressure is estimated to be normal (3mmHg). Right atrium was not well visualized. Mitral [...] The pulmonic valve was not well visualized. Aorta The aortic root dimension is normal. The ascending aorta is mildly dilated. Pericardium There is no pericardial effusion. Review of Systems 10 point review of systems otherwise negative in detail Objective Past Medical History: Diagnosis Date Depression History reviewed. No pertinent surgical history. History reviewed. No pertinent family history. Social History[1] Medications Prior to Admission Medications: Prescriptions Prior to Admission[2] Current Medications / MAR: Medications Scheduled Medication Ordered Dose/Rate, Route, Frequency Last Action chlorhexidine (PERIDEX) 0.12 % oral solution 15 mL 15 mL, MT, BID Given, 15 mL at 09/12 850 chlorhexidine gluconate 2 % wipes - urethral catheter CHG application No Dose/Rate, TOP, Daily Given, 1 each at 09/12 850 clonazePAM (KlonoPIN) disintegrating tablet 0.25 mg 0.25 mg, FT, Q8H ZO Ordered heparin (porcine) 5000 unit/mL injection 5,000 Units 5,000 Units, SC, Q8H ZO Ordered hydrocortisone-acetic acid (VOSOL-HC) 1-2 % otic solution 4 drop 4 drop, RIGHT EAR, BID Given, 4 drop at 09/12 850 immune globulin (human) 10% in Solution (PRIVIGEN) IV Premix 10 g (And Linked Group #1) 10 g, IV, Q24H New Bag, 10 g at 09/11 2048 immune globulin (human) 10% in Solution (PRIVIGEN) IV Premix 20 g (And Linked Group #1) 20 g, IV, Q24H New Bag, 20 g at 09/11 2226 immune globulin (human) 10% in Solution (PRIVIGEN) IV Premix 5 g (And Linked Group #1) 5 g, IV, Q24H New Bag, 5 g at 09/11 2045 insulin lispro (HumaLOG/ADMELOG) 100 units/mL injection 3-11 Units 3-11 Units, SC, Q4H ZO Given, 4 Units at 09/12 123 meropenem (MERREM) 1 g in sodium chloride-MBP (NS) 100 mL IVPB-MBP 1 g, IV, Q8H New Bag, 1 g at 09/12 0851 methylPREDNISolone sodium succinate (SOLU-Medrol) injection 40 mg 40 mg, IV, Q8H ZO Given, 40 mg at 09/12 0557 metoPROLOL TARTRATE (LOPRESSOR) tablet 25 mg 25 mg, FT, Q12H ZO Given, 25 mg at 09/12 1054 naloxegol (MOVANTIK) tablet 25 mg 25 mg, FT, Daily before breakfast Ordered nicotine (NICODERM CQ) 21 MG/24HR patch 1 patch 1 patch, TD, Daily Patch Applied, 1 patch at 09/12 0851 polyethylene glycol (miraLAx) packet 17 g 17 g, FT, BID Ordered QUEtiapine (SEROquel) tablet 25 mg 25 mg, FT, BID Ordered QUEtiapine (SEROquel) tablet 50 mg 50 mg, FT, Nightly Ordered senna-docusate (SENNA-S) 8.6-50 MG tablet 2 tablet 2 tablet, FT, BID Ordered Continuous Medication Ordered Dose/Rate, Route, Frequency Last Action dextrose 5 % (D5W) infusion 50 mL/hr, IV, Continuous Rate/Dose Verify, 50 mL/hr at 09/12 1200 HYDROmorphone (DILAUDID) IV infusion 50 mg in 50 mL NS (1 mg/mL) (premix) 2 mg/hr, IV, Continuous Rate/Dose Verify, 2 mg/hr at 09/12 1200 ketamine 1000 mg in 100 mL NS infusion (10 mg/mL) (premix) 30 mcg/kg/min, IV, Continuous Rate/Dose Verify, 30 mcg/kg/min at 09/12 1200 PRN Medication Ordered Dose/Rate, Route, Frequency Last Action acetaminophen (TYLENOL) 160 mg/5 mL solution 650 mg 650 mg, FT, Q6H PRN Ordered bisacodyl (DULCOLAX) suppository 10 mg 10 mg, RE, Daily PRN Ordered dextrose 50 % solution 12.5 g (Or Linked Group #2) 12.5 g, IV, Q15 Min PRN Ordered dextrose 50 % solution 25 g (Or Linked Group #2) 25 g, IV, Q15 Min PRN Ordered glucagon (GLUCAGEN) injection 1 mg (Or Linked Group #2) 1 mg, IM, Daily PRN Ordered glucose (GLUTOSE 15) 40 % oral gel 37.5 g (Or Linked Group #2) 1 Tube, PO, Q15 Min PRN Ordered glucose (GLUTOSE 15) 40 % oral gel 75 g (Or Linked Group #2) 2 Tube, PO, Q15 Min PRN Ordered haloperidol lactate (HALDOL) 5 mg/mL injection 5 mg 5 mg, IV, Q2H PRN Ordered HYDROmorphone (DILAUDID) 2 mg/mL injection 2 mg 2 mg, IV, Q2H PRN Given, 2 mg at 09/12 1119 lactulose (ENULOSE) 10 gm/15 mL solution 20 g 30 mL, PER OG TUBE, Q4H PRN Ordered naloxone (NARCAN) 0.4 mg/mL injection 0.4 mg 0.4 mg, IV, Q5 Min PRN Ordered Allergies[3] Physical Exam Vitals: 09/12/24 0900 09/12/24 1000 09/12/24 1100 09/12/24 1200 BP: (!) 179/86 (!) 170/84 (!) 170/83 120/59 BP Location: Left arm Patient Position: Lying Pulse: (!) 109 (!) 109 (!) 111 75 Resp: (!) 22 (!) 11 16 12 Temp: (!) 100.8 ??F (38.2 ??C) (!) 102 ??F (38.9 ??C) (!) 101.3 ??F (38.5 ??C) (!) 101.5 ??F (38.6 ??C) TempSrc: Esophageal SpO2: 95% 96% 96% 94% Weight: Height: Intake/Output Summary (Last 24 hours) at 09/12/2024 1310 Last data filed at 09/12/2024 1200 Gross per 24 hour Intake 5712.72 ml Output 3150 ml Net 2562.72 ml GENERAL: No acute distress. HENT: Anicteric. PERRLA. Moist oral membranes. NECK: No carotid bruits. JVP normal CHEST: Nontender. Clear to auscultation bilaterally. CARDIAC: Regular rate and rhythm. Nondisplaced PMI. ABDOMEN: Bowel sounds normal. Soft. Nontender. Nondistended. VASCULAR: + DP pulses. EXTREMITIES: Warm, well-perfused. No edema. SKIN: No rashes NEURO: Alert. Grossly nonfocal. Relevant data reviewed: Results from last 7 days Lab Units 09/12/24 1130 09/12/24 0737 09/12/24 0328 09/12/24 0019 09/11/24 1353 09/11/24 1115 09/11/24 0341 09/11/24 0010 09/08/24 1223 09/08/24 1215 09/07/24 1951 09/07/24 1636 SODIUM mmol/L -- -- -- 153* -- 156* -- 149* < > -- < > 141 POTASSIUM mmol/L -- -- -- 4.7 -- 4.7 -- 4.9 < > -- < > 3.6 CHLORIDE mmol/L -- -- -- 118* -- 120* -- 118* < > -- < > 109* CO2 mmol/L -- -- -- 31 -- 29 -- 26 < > -- < > 21* CO2, TOTAL -- -- -- -- -- -- -- -- < > -- < > -- BUN mg/dL -- -- -- 48* -- 59* -- 67* < > -- < > 45* CREATININE mg/dL -- -- -- 1.0 -- 1.1 -- 1.1 < > -- < > 1.0 CALCIUM mg/dL -- -- -- 7.7* -- 7.6* -- 7.6* < > -- < > 7.9* GLUCOSE mg/dL -- -- -- 157* -- 164* -- 158* < > -- < > 92 GLUCOSE, POC mg/dL 147* 145* 144* -- < > -- < > -- < > -- < > -- EGFR -- -- -- 85 -- 76 -- 76 < > -- < > 85 ALBUMIN g/dL -- -- -- 2.5* -- -- -- -- -- 2.6* -- 2.8* PROTEIN, TOTAL g/dL -- -- -- 7.6 -- -- -- -- -- 5.2* -- 5.2* BILIRUBIN TOTAL mg/dL -- -- -- 4.5* -- -- -- -- -- 3.2* -- 2.6* ALK PHOS U/L -- -- -- 56 -- -- -- -- -- 66 -- 97 ALT U/L -- -- -- 152* -- -- -- -- -- 20 -- 18 AST U/L -- -- -- 109* -- -- -- -- -- 48 -- 43 < > = values in this interval not displayed. Lab Results Component Value Date MG 3.0 (H) 09/12/2024 Results from last 7 days Lab Units 09/12/24 0019 09/11/24 1115 09/11/24 0010 WHITE BLOOD CELL COUNT Thou/uL 6.0 5.7 4.8 HEMOGLOBIN g/dL 8.2* 8.1* 7.3* HEMATOCRIT % 24.7* 24.9* 21.9* PLATELET COUNT Thou/uL 55* 54* 48* NEUTROS PCT % 83.0 -- -- LYMPHS PCT % 7.0 -- -- MONOS PCT % 8.8 -- -- EOS PCT % 0.0 -- -- BASOS PCT % 0.0 -- -- Lab Results Component Value Date HSTNT 22 09/07/2024 Lab Results Component Value Date PROBNP 3,773 (H) 09/08/2024 Sign: Hardy Pardo MD 09/12/2024 1:10 PM [1] Social History Tobacco Use Smoking status: Former Types: Cigarettes Substance Use Topics Alcohol use: Not Currently Comment: ETOH ABUSE, QUIT 15 YEARS AGO [2] Medications Prior to Admission Medication Sig Dispense Refill Last Dose/Taking FLUoxetine (PROzac) 40 MG capsule Take 1 capsule (40 mg total) by mouth daily. risperiDONE (RisperDAL) 0.5 MG tablet Take 1 tablet (0.5 mg total) by mouth 2 (two) times a day. [3] No Known Allergies * Anni Thrasher, RD - 09/09/2024 1:16 PM EDTAssociated Order(s): IP CONSULT TO NUTRITION SERVICES [facility] Nutrition Note Visit Type: initial assessment Reason for Dietitian Visit: consult, tube feeding. Reason for Admission: Acute cerebral venous sinus thrombosis Pertinent Medical History: Past Medical History: Diagnosis Date Depression Nutrition Diagnosis: Intake: Inadequate protein-energy intake related to acute illness as evidenced by OGT in place, TF initiated, not at goal rate Diagnosis Status: improvement shown/unresolved. Interventions/Recommendations: Food & Nutrient Delivery: 1. as tolerated increase tube feeding to Osmolite 1.5 at final goal of 60 ml/hr continuous with minimal of 30 ml water flush every 4 hours for tube patency, additional pro source TF 3.0 BID , tube feeding plus pro source to provide: 134 gram protein with 2400 Kcal, 1097 ml free water 2. monitor tolerance to tube feeding 3. weights and labs as ordered Coordination of Nutrition Care: None at this time. Nutrition Plan for Discharge/Transfer: To be determined. Nutrition Assessment: Consult received for tube feeding recommendations. 63 yo male who initially presented to OSH with AMS, left eye swelling, tongue swelling and right ear pain, He has findings consistent with left sided cavernous sinus thrombosis per MD note. Visited with patient, intubated and sedated, propofol ratedecreased since visit. OGT in place with tube feeding now initiated. Limited NFPE completed, no obvious muscle or fat wasting noted, meds and labs reviewed. Would suggest increasing tube feeding to goal rate as tolerated. RD to monitor per standards of care Typical Food & Fluid Intake: pt is intubated and sedated in the ICU, unable to interview Factors Affecting Nutritional Intake: clinical illness Food Related Allergies: NKFA Cultural/Ethnic Preferences: None noted/reported. 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) Enteral Access Devices: orogastric tube Oral/Mouth Cavity: OGT in place Skin: intact Wound Documentation Reviewed: yes Labs: (09/08/24) Na 146, K+ 4.9, BUN 70, creat 1.4, BG 136, Mag 3.1, eGFR 57, phos 4.9 Diagnostics: reviewed Medications: propofol, rate decreased from 17.3 to 11.5 ml/hr, propofol providing 293 KCal Estimated Daily Energy and Protein Needs: Energy Needs: 2398 - 2877 Kcals/day based on 95.9 kg (211 lb 6.7 oz) Protein Needs: 115 - 192 gm, (1.2 - 2.0g/kg) based on 95.9 kg (211 lb 6.7 oz) Fluids: 2398ml based on AUTO DAMAGE ADJUSTER Method Current Diet: Diet, Tube Feeding, No Tray Continuous; OG Tube; Osmolite 1.5; 20 mL; 20 mL/hr; Water; Every 4 hours; 200ml; NPO Intake Compared to Estimated Needs: Energy Intake: not meeting needs (TF initiated, infusing at 20 ml/hr) x days Protein Intake: not meeting needs x days Fluid Intake: not meeting needs Educational Needs Assessment: Assessed patient's learning needs. Barriers to Education: Clinical Condition Monitoring & Evaluation: Goals to be Achieved by Next Assessment: 1. Pt to receive equal to or >80% of goal TF volume by next nutrition assessment. Monitoring/Evaluation: RD/DTR will monitor and evaluate nutrition plan of care and provide additional interventions and recommendations based on nutrition/clinical status. Sign: Anni Thrasher RD 09/09/2024 1:16 PM * Loyda Lilly APRN - 09/08/2024 4:04 PM EDT Hematology/Oncology Consult Note Date of Consult: 09/08/2024 Patient's Primary Care Physician: UNKNOWN Physician Requesting Consult: Dr. Barr Reason for Consultation: Thrombocytopenia Assessment & Plan his is a 63-year-old male with a history of depression, alcohol use disorder in remission for 15 years, tobacco use disorder presented to [facility] for altered mental status, left eye swelling, tongue swelling and severe right ear pain. MRI brain suggestive of a left cavernous sinus thrombosis. ENT at [facility] was consulted and reviewed the case but did not feel the patient required transfer as surgery was not indicated and he likely has mastoiditis. He was started on vancomycin, meropenem and caspofungin and was transferred to [facility] Hospital course complicated by acute respiratory distress requiring intubation, severe thrombocytopenia in the setting of acute illnesses/sepsis. Hematology consulted for severe thrombocytopenia. I reviewed his smear with the pathologist showed toxic granulocytes, rare schistocytes, marcelino cells and rouleaux [ likely due to increased fibrinogen ].Possible explanations for his severe thrombocytopenia is likely secondary ITP, acute illnesses/sepsis, drug-induced thrombocytopenia [antibiotic]. No recent blood work available for review prior to him presenting to [facility]. There are somerare schistocytes on smear but normal hemolysis markers and kidney function argues against microangiopathic process. I have low index of suspicion that this is primary bone marrow disorder. Coagulation screening not suggestive of DIC. I would start IVIG 1 g/kg x 2 doses. Would normally give high-dose dexamethasone but will hold off given sepsis. Would also check nutritional labs including iron, iron saturation, TIBC, ferritin, transferrin, B12and folate. Would monitor CBC and coagulations including fibrinogen, D-dimer, PT, APTT. He may require additional evaluation depending on his clinical course. Would obtain Doppler of lower and upper extremity to rule out VTE. Support with transfusion for hemoglobin less than 7, platelet <30K Continue supportive care as you are Thank you for allowing us to participate in the care of your patient will follow along Case discussed with Dr. Olivares who is in agreement with above assessment and plan. Subjective History of Present Illness This is a 63-year-old male with a history of depression, alcohol use disorder in remission for 15 years, tobacco use disorder presented to [facility] for altered mental status, left eye swelling, tongue swelling and severe right ear pain. MRI brain suggestive of a left cavernous sinus thrombosis. ENT at [facility] was consulted and reviewed the case but did not feel the patient required transfer as surgery was not indicated and the patient likely has mastoiditis. He was started on vancomycin, meropenem and caspofungin and was transferred to [facility]. Blood work notable 09/06 for leukocytosis, severe thrombocytopenia [7K], elevated fibrinogen and D-dimer. Pathology smear review on 09/06/2024 showed left shifted granulocytes with toxic changes are present, normochromic anemia, platelet markedly decreased in number and rare large forms identified. Upon presentation to [facility] blood work showed WBC 16.5, hemoglobin 11.6 hematocrit 33.7,platelet count 10K, ANC 16.2, creatinine 1.0, albumin 2.8, T. bili 1.9, AST/ALT/alkaline phosphatase normal Blood work 09/08/2024 WBC 14.2, hemoglobin 10.9/31.2, platelet 90K, immature platelet 30.2, creatinine 1.1, PT 14.0, INR 1.3, aPTT 30, Fibrinogen 550, Hematology consulted for thrombocytopenia Oncology History No history exists. Past Medical History: Diagnosis Date Depression No past surgical history on file. No family history on file. Social History Socioeconomic History Marital status: Single Spouse name: Not on file Number of children: Not on file Years of education: Not on file Highest education level: Not on file Occupational History Not on file Tobacco Use Smoking status: Former Types: Cigarettes Smokeless tobacco: Not on file Substance and Sexual Activity Alcohol use: Not Currently Comment: ETOH ABUSE, QUIT 15 YEARS AGO Drug use: Not on file Sexual activity: Not on file Other Topics Concern Not on file Social History Narrative Not on file Social Drivers of Health Financial Resource Strain: Not on file Food Insecurity: Not on file Transportation Needs: Not on file Physical Activity: Not on file Stress: Not on file Social Connections: Not on file Housing Stability: Not on file Review of Systems Review of Systems - Oncology Patient is intubated and sedated in ICU unable to obtain review of system Objective Medications Current Medications[1] Allergies Allergies[2] Physical Exam Vitals: 09/08/24 1500 09/08/24 1530 09/08/24 1558 09/08/24 1600 BP: 131/61 124/66 124/66 129/61 BP Location: Patient Position: Pulse: 100 (!) 103 (!) 102 Resp: (!) 33 (!) 31 (!) 27 Temp: 100.2 ??F (37.9 ??C) (!) 100.8 ??F (38.2 ??C) (!) 101.1 ??F (38.4 ??C) TempSrc: SpO2: 98% 97% 97% Weight: Height: Intake/Output Summary (Last 24 hours) at 09/08/2024 1605 Last data filed at 09/08/2024 1600 Gross per 24 hour Intake 2054.16 ml Output 1545 ml Net 509.16 ml Physical Exam Constitutional: Appearance: He is ill-appearing. Comments: Intubated, sedated Eyes: General: No scleral icterus. Cardiovascular: Rate and Rhythm: Regular rhythm. Pulmonary: Effort: No respiratory distress. Comments: Intubated Abdominal: General: There is no distension. Palpations: Abdomen is soft. Musculoskeletal: Right lower leg: No edema. Left lower leg: No edema. Skin: Coloration: Skin is pale. Findings: Bruising present. Sign: Loyda Lilly APRN 09/08/2024 4:05 PM [1] Current Facility-Administered Medications Medication Dose Route Frequency Provider Last Rate Last Admin bisacodyl (DULCOLAX) suppository 10 mg 10 mg Rectal Daily PRN Marie Chamberlain PA-C cefepime (MAXIPIME) 2 g in sodium chloride-MBP (NS) 100 mL IVPB-MBP 2 g Intravenous Q8H KRISTA Nagy-Ryan 33.3 mL/hr at 09/08/24 1010 2 g at 09/08/24 1010 chlorhexidine (PERIDEX) 0.12 % oral solution 15 mL 15 mL Mouth/Throat BID Korina Lai PA-C 15 mL at 09/08/24 1011 chlorhexidine gluconate 2 % wipes - urethral catheter CHG application Topical Daily Nanci Guerra PA-C ciprofloxacin-dexAMETHasone (CIPRODEX) 0.3-0.1 % otic suspension 4 drop 4 drop Right Ear BID Tarun Young MD 4 drop at 09/08/24 1010 glucose (GLUTOSE 15) 40 % oral gel 37.5 g 1 Tube Oral Q15 Min PRN KRISTA Nagy-C Or glucose (GLUTOSE 15) 40 % oral gel 75 g 2 Tube Oral Q15 Min PRN KRISTA Nagy-C Or dextrose 50 % solution 12.5 g 12.5 g Intravenous Q15 Min PRN Marie Chamberlain PA-C Or dextrose 50 % solution 25 g 25 g Intravenous Q15 Min PRN KRISTA Nagy-C Or glucagon (GLUCAGEN) injection 1 mg 1 mg Intramuscular Daily PRN KRISTA Nagy-C HYDROmorphone (DILAUDID) injection 1 mg 1 mg Intravenous Q3H PRN Marie Chamberlain PA-C 1 mg at 09/08/24 1538 HYDROmorphone (DILAUDID) IV infusion 50 mg in 50 mL NS (1 mg/mL) (premix) 0.5 mg/hr Intravenous Continuous Aimee Boone Corie, KRISTA 0.5 mL/hr at 09/08/24 1600 0.5 mg/hr at 09/08/24 1600 lactulose (ENULOSE) 10 gm/15 mL solution 20 g 30 mL OG Tube Q4H PRN Marie Chamberlain PA-C linezolid (ZYVOX) IVPB 600 mg in 300 mL D5W (premix) 600 mg Intravenous Q12H KRISTA Nagy-C300 mL/hr at 09/08/24 1010 600 mg at 09/08/24 1010 methylPREDNISolone sodium succinate (SOLU-Medrol) injection 250 mg 250 mg Intravenous Q6H ZO Marie Chamberlain PA-C metroNIDAZOLE (FLAGYL) IVPB 500 mg in 100 mL NS (premix) 500 mg Intravenous Q12H KRISTA Nagy-C 100 mL/hr at 09/08/24 0525 500 mg at 09/08/24 0525 naloxone (NARCAN) 0.4 mg/mL injection 0.4 mg 0.4 mg Intravenous Q5 Min PRN Marie Chamberlain PA-C nicotine (NICODERM CQ) 21 MG/24HR patch 1 patch 1 patch Transdermal Daily KRISTA Bedolla 1patch at 09/08/24 1009 norepinephrine (LEVOPHED) IV infusion 8 mg in 250 mL NS (premix) 2-60 mcg/min Intravenous Titrated KRISTA Nagy-C 7.5 mL/hr at 09/08/24 1600 4 mcg/min at 09/08/24 1600 PANTOprazole (PROTONIX) injection 40 mg 40 mg Intravenous Daily ROQUE NagyC 40 mg at 09/08/24 1010 propofol (diPRIvan) 1000 MG/100ML injection 5-75 mcg/kg/min Intravenous Titrated KRISTA Nagy-C 23 mL/hr at 09/08/24 1600 40 mcg/kg/min at 09/08/24 1600 senna-docusate (SENNA-S) 8.6-50 MG tablet 2 tablet 2 tablet OG Tube Nightly Marie Chamberlain PA-C [2] No Known Allergies * Pierre Michaud MD - 09/08/2024 6:50 AM EDT [facility] INFECTIOUS DISEASE CONSULT NOTE Date of Consult: 09/08/2024 Patient's Primary Care Physician: No primary care provider on file. Physician Requesting Consult: Danny Barr MD Reason for Consultation: Cavernous sinus thrombosis Principal Problem: Acute cerebral venous sinus thrombosis (POA: Yes) Resolved Problems: ASSESSMENT & PLAN Assessment Cavernous sinus thrombosis. Rule out septic cavernous sinus thrombosis. We will call [facility] and track down his blood cultures to see if anything is positive. Input from neurology, otolaryngology and ophthalmology noted. We have him on broad-spectrum antibiotics. His chest x-ray has essentially whitened out. Plan Bronchoscopy to be done. Continue antibiotics. Hematology/oncology to see. The patient has schistocytes and marcelino cells on his smear. This could be a microangiopathic hemolytic anemia. [place] is guarded SUBJECTIVE Chief Complaint: Pain History of Present Illness: This is a 63-year-old male with a history of depression, history of alcohol use disorder in remission x 15 years, history of tobacco use disorder with a [id number] history who presented to [facility] via EMS with altered mental status, left eye swelling, tongue swelling and severe right ear pain. Patient states his symptoms started last Wednesday after getting out of work. 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 Per his family he has been sleeping more since that time. Symptoms started with a headache and right ear pain. He cannot see out of the left eye. Patient sister came to see him and called 911 because she felt he needed to be seen. He went to [facility] with a temperature of 101 and had an SVT in the 210s. Hemodynamics were stable and he was placed on an oxime mask to maintainO2 sats. White count was 10.2. Platelets were 7000. Fibrinogen was greater than 700 and a D-dimer was 1650. Lactic acid was 5.1. He has schistocytes and marcelino cells in his smear. Urinalysis was negative. Stool was positive for blood. He got IV fluids and albumin. He was treated with vancomycin Zosynand ceftriaxone. CT of the chest showed evidence of aspiration. CT of the head with abnormal findings in the right mastoid air cells middle and external ear. They thought it went along with otitis media/otitis externa with soft tissue mastoiditis. MRI of the brain was suggestive of a left cavernous sinus thrombosis. ENT at [facility] was consulted and reviewed the case but did not feel the patient required transfer surgery was not indicated and the patient did not have mastoiditis. [facility] ENT recommended treatment with IV antibiotics. He was ordered for meropenem vancomycin and caspofungin. He was transferred here for ENT, ophthalmology and infectious disease and neurology consults. Here hewas increasingly hypoxic requiring high flow oxygen. Chest x- ray showed diffuse alveolar disease. Ophthalmology saw the patient with findings concerning for a left-sided cavernous sinus thrombosis. He had no right eye movement. Vision in the left eye is no light perception. Cavernous sinus disease alone did not explain the loss of vision. There was concern for severe increase in ocular pressure which was not felt to be the case. He may have a's severely edematous optic nerve. The nerve did not appear to be swollen. Thrombus may have disrupted blood flow. They did not see that there was any acute interventions that could be done to save the eye. ENT saw the patient and recommended an IAC scan with contrast. A right ear culture was taken. There is no paranasal sinus disease. He had clinicalfindings consistent with right-sided otitis externa and media based on the CT scan. There was no mastoiditis. Neurology saw the patient and recommended anticoagulation however could not be done because of his platelet count. There was concern for thrombosis of the left superior ophthalmic vein. No known allergies to medicines Social history he is a former drinker and a smoker. Family history is unknown Review of Systems: Not able to be obtained as he is on the ventilator PAST MEDICAL HISTORY: Past Medical History: Diagnosis Date Depression No past surgical history on file. SOCIAL HISTORY: Social History[1] FAMILY HISTORY: No family history on file. OBJECTIVE Allergies[2] Physical Exam Last Vitals Pulse:76,Resp:(!) 37,BP:126/60,SpO2:95 %,Weight:95.9 kg (211 lb 6.7 oz) Temp Last 24 hrs: Temp Min: 96.9 ??F (36.1 ??C) Max: 102 ??F (38.9 ??C) Last temp: (!) 101.1 ??F (38.4 ??C) He is on the ventilator. Left eye is swollen shut with erythema. HEENT: Mucous membranes are moist. PERRLA. EOMI. Neck supple without nodes. Lungs: Clear. Cardiac: RRR. Abdomen: +BS Soft Nontender. Extremities: No lesions. Joints: No degenerative joint disease. Skin: No rash. Lymph nodes: No lymph nodes palpated. Neuro: Moves all extremities. Intake/Output Summary (Last 24 hours) at 09/08/2024 0650 Last data filed at 09/08/2024 0600 Gross per 24 hour Intake 1299.32 ml Output 905 ml Net 394.32 ml Relevant data reviewed: Results from last 7 days Lab Units 09/08/24 0117 09/07/24 1636 WHITE BLOOD CELL COUNT Thou/uL 14.2* 16.5* HEMOGLOBIN g/dL 10.9* 11.6* HEMATOCRIT % 31.2* 33.7* PLATELET COUNT Thou/uL 9* 10* Results from last 7 days Lab Units 09/08/24 0409 09/08/24 0117 09/08/24 0002 09/07/24 2221 09/07/24 2151 09/07/24 1951 09/07/24 1636 SODIUM mmol/L -- 143 -- -- -- -- 141 POTASSIUM mmol/L -- 4.0 -- -- -- -- 3.6 CHLORIDE mmol/L -- 112* -- -- -- -- 109* CO2 mmol/L -- 20* -- -- -- -- 21* CO2, TOTAL mmol/L -- -- -- -- 22 -- -- BUN mg/dL -- 49* -- -- -- -- 45* CREATININE mg/dL -- 1.1 -- -- -- -- 1.0 CALCIUM mg/dL -- 8.2* -- -- -- -- 7.9* GLUCOSE mg/dL -- 145* -- -- -- -- 92 GLUCOSE, POC mg/dL 142* -- 133* < > -- < > -- EGFR -- 76 -- -- -- -- 85 ALBUMIN g/dL -- -- -- -- -- -- 2.8* PROTEIN, TOTAL g/dL -- -- -- -- -- -- 5.2* BILIRUBIN TOTAL mg/dL -- -- -- -- -- -- 2.6* ALK PHOS U/L -- -- -- -- -- -- 97 ALT U/L -- -- -- -- -- -- 18 AST U/L -- -- -- -- -- -- 43 < > = values in this interval not displayed. Lab Results Component Value Date ALT 18 09/07/2024 AST 43 09/07/2024 ALKPHOS 97 09/07/2024 BILITOT 2.6 (H) 09/07/2024 Results from last 7 days Lab Units 09/08/24 0132 PROTHROMBIN TIME (PT) seconds 14.4* APTT seconds 27 INR 1.3 proBNP, N-terminal Date Value Ref Range Status 09/07/2024 5,786 (H) <125 pg/mL Final Blood Cultures: Lab Results Component Value Date CULTURE PENDING 09/07/2024 Urine Cultures: No results found for: CRYSUA , HYALNCSTUA , UROBILINOGEN , BILIUA , BLOODUA , CLARITYUA , COLORUA , UACOMMENT , GLUCU , KETONESUA , LEUKOCYTESUA , NITRITEUA , PHUA , PROTEINUA , RBCUA , SPECIMEN , SPECGRAVUA , SQEPIUA , WBCUA C. Difficile: No results found for: CDIFFTOX , NAP1 Current Medications: Current Medications[3] Imaging Studies: [facility] Archive for reference only CT Result Date: 09/07/2024 This order has been auto-finalized and does not contain a result. [facility] Archive for reference only CT Result Date: 09/07/2024 This order has been auto-finalized and does not contain a result. [facility] Archive for reference only CT Result Date: 09/07/2024 This order has been auto-finalized and does not contain a result. [facility]ILLE Archive for reference only CT Result Date: 09/07/2024 This order has been auto-finalized and does not contain a result. [facility]IL[facility] Archive for reference only MR Result Date: 09/07/2024 This order has been auto-finalized and does not contain a result. GUILLE Archive for reference only CR Result Date: 09/07/2024 This order has been auto-finalized and does not contain a result. GUILLE Archive for reference only CR Result Date: 09/07/2024 This order has been auto-finalized and does not contain a result. GUILLE Archive for reference only MR Result Date: 09/07/2024 This order has been auto-finalized and does not contain a result. Sign: Pierre Michaud MD 09/08/2024 6:50 AM [1] Social History Tobacco Use Smoking status: Former Types: Cigarettes Substance Use Topics Alcohol use: Not Currently Comment: ETOH ABUSE, QUIT 15 YEARS AGO [2] No Known Allergies [3] Current Facility-Administered Medications Medication Dose Route Frequency Provider Last Rate Last Admin bisacodyl (DULCOLAX) suppository 10 mg 10 mg Rectal Daily PRN Marie Chamberlain PA-C cefepime (MAXIPIME) 2 g in sodium chloride-MBP (NS) 100 mL IVPB-MBP 2 g Intravenous Q8H Marie Chamberlain PA-C 33.3 mL/hr at 09/08/24 0158 2 g at 09/08/24 0158 chlorhexidine gluconate 2 % wipes - urethral catheter CHG application Topical Daily Nanci Guerra PA-C ciprofloxacin-dexAMETHasone (CIPRODEX) 0.3-0.1 % otic suspension 4 drop 4 drop Right Ear BID Tarun Young MD 4 drop at 09/07/242116 dexmedeTOMIDine (PRECEDEX) IV infusion 400 mcg in 100 mL NS (premix) 0.2-1.5 mcg/kg/hr Intravenous Titrated Nanci Guerra PA-C 31.2 mL/hr at 09/08/24 0605 1.3 mcg/kg/hr at 09/08/24 0605 glucose (GLUTOSE 15) 40 % oral gel 37.5 g 1 Tube Oral Q15 Min PRN Marie Chamberlain PA-C Or glucose (GLUTOSE 15) 40 % oral gel 75 g 2 Tube Oral Q15 Min PRN KRISTA Nagy-C Or dextrose 50 % solution 12.5 g 12.5 g Intravenous Q15 Min PRN KRISTA Nagy-C Or dextrose 50 % solution 25 g 25 g Intravenous Q15 Min PRN Marie Chamberlain PA-C Or glucagon (GLUCAGEN) injection 1 mg 1 mg Intramuscular Daily PRN KRISTA Nagy-C lactulose (ENULOSE) 10 gm/15 mL solution 20 g 30 mL Oral Q4H PRN ROQUE NagyC linezolid (ZYVOX) IVPB 600 mg in 300 mL D5W (premix) 600 mg Intravenous Q12H KRISTA Nagy-C300 mL/hr at 09/07/24 2143 600 mg at 09/07/24 2143 methylPREDNISolone sodium succinate (SOLU-Medrol) injection 40 mg 40 mg Intravenous Q8H ZO KRISTA Jones 40 mg at 09/08/24 0525 metroNIDAZOLE (FLAGYL) IVPB 500 mg in 100 mL NS (premix) 500 mg Intravenous Q12H Marie Chamberlain PA-C 100 mL/hr at 09/08/24 0525 500 mg at 09/08/24 0525 naloxone (NARCAN) 0.4 mg/mL injection 0.4 mg 0.4 mg Intravenous Q5 Min PRN ROQUE NagyC nicotine (NICODERM CQ) 21 MG/24HR patch 1 patch 1 patch Transdermal Daily KRISTA Bedolla senna-docusate (SENNA-S) 8.6-50 MG tablet 2 tablet 2 tablet Oral Nightly Marie Chamberlain PA-C sodium chloride (NS) 0.9 % infusion - ADS Override Pull * Vipin Salazar PA-C - 09/07/2024 7:24 PM EDT Inpatient Neurology Consultation Patient: Mariah Masterson Date of : 1960 Date of Service: 09/07/24 Consulting provider: Vipin Salazar PA-C Referring provider: Dr. Danny Barr Reason for Consultation: Concern for CVT History of Present Illness: Mariah Masterson is a 63 y.o. right-handed male with past medical history of depression (on fluoxetine and risperidone), alcohol abuse (remission x 15 years), smoking (couple packs per week x 25 years)who presented to [facility] on 09/07 as a transfer from [facility] due to alteredmental status, right ear pain, left eye/tongue swelling. History obtained per chart. His symptoms began on 09/02 after leaving work (at a restaurant) when he became more lethargic and developed a headache with right ear pain. He was treated at an urgent care for an external ear infection with antibiotic ear drops. His symptoms worsened and he was unable to see out of his left eye. His sister visited him and called EMS. At [facility], patient with temperature of 101, tachypneic, self-limited SVT to 210s, placed on oximask to maintain O2 sats. His labs were notable for WBC 10.2, platelets 7, fibrinogen > 700, d-dimer 16,50, lactic acid 5.1 --> 3.6. Urinalysis negative, fluvid negative. Occult stool positive for blood. He received IVF and albumen and was treated with Vancomycin, Zosyn and ceftriaxone. CT chest with evidence of aspiration or endobronchial pneumonia. CT abdomen/pelvis with hepatosplenomegaly, distended gallbladder, thickening of the adrenal glands, bilateral periphrenic stranding, distended stomach with air- fluid level. CT head showed abnormal findings in the right mastoid air cells, middle, and external ear. Favor otitis media, externa with soft tissue abscess and mastoiditis. Brain MRI showed abnormalities of the left orbit including mild enlargement of the extraocular muscles, mild edema throughout the intra and extra conal fat, loss of normal flow-void of the superior ophthalmic vein, mild enlargement of the left superior ophthalmic vein, and left preseptal soft tissue edema, concerning for thrombosis of the left superior ophthalmic vein. MRV brain with normal flow related enhancement in the major cortical and dural venous sinuses. Given concern for left cavernous sinus thrombosis, he was transferred to [facility] and neurology was consulted. Upon arrival to [facility], blood pressure 146/65, SpO2 93-97% (requiring hi-flow oxygen), HR 94, Temp 96.9. His labs are notable for WBC 16.5, platelet count 10, BUN 45. Blood cultures and MRSA screen pending. NIHSS 5, with exam notable for left eye visual impairments and dysarthria. Infectious disease, ophthalmology, and ENT have been consulted. He has been started on cefepime IV, Linezolid IV, flagyl IV, Solumedrol. Ophthalmology evaluated and patient with no light perception in left eye and pupil nonreactive to light, 3+ chemosis, engorged veins, mild proptosis, and ophthalmoplegia. At baseline, patient lives with his mother. He is independent with ADLs/IADLs. He ambulates independently without any assistive devices. Denies any recent alcohol or drug use. Endorses smoking history. Social work has been consulted and patient has a daughter in [place] who would be his LNOK but he does not want her contacted at this time. His mother and sister he would like to be his decision makers. Review of Systems: Review of Systems : Constitutional: Positive for fatigue HENT: Negative for voice change. Positive for ear pain Eyes: Positive for L eye vision impairment Respiratory: Negative for shortness of breath. Cardiovascular: Positive for chest pain Gastrointestinal: Negative for nausea or vomiting. Genitourinary: Negative for urgency and frequency. Musculoskeletal: Negative for myalgias or althralgias Skin: Negative for rash. Neurological: Please refer to HPI Hematological: Does not bruise/bleed easily. Psychiatric/Behavioral: The patient is not nervous/anxious. Medical and Social History: Past Medical and Surgical History: Past Medical History: Diagnosis Date Depression No past surgical history on file. Family History: No family history on file. Social History: Social History Tobacco Use Smoking status: Former Types: Cigarettes Smokeless tobacco: Not on file Substance Use Topics Alcohol use: Not Currently Comment: ETOH ABUSE, QUIT 15 YEARS AGO Pre-Hospital ambulation: independent Pre-Hospital MRS: 0 Allergies and Medications: Allergies and Adverse reactions: Allergies[1] Home Medications: FLUoxetine (PROzac) 40 MG capsule Take 1 capsule (40 mg total) by mouth daily. risperiDONE (RisperDAL) 0.5 MG tablet Take 1 tablet (0.5 mg total) by mouth 2 (two) times a day. Exam: Vitals: BP 128/59 Pulse 91 Temp 96.9 ??F (36.1 ??C) (Tympanic) Resp (!) 32 Ht 1.905 m (6' 3 ) Wt 95.9 kg (211 lb 6.7 oz) SpO2 93% BMI 26.43 kg/m?? General: Ill-appearing male lying in bed in no distress. Breathing is unlabored on hi- flow oxygen. Distal extremities are warm. Mood is good and affect appropriate Cognitive status and Language: Alert and oriented x 4 Able to name and repeat Mild to moderate dysarthria No neglect, no extinction Follows all simple and complex motor commands Attention and concentration are appropriate Cranial nerves: Unable to assess pupil on L, reactive on R Extraocular movements are intact in right eye - unable to assess in left. Vision in R eye intact, unable to assess vision in left eye due to pain/discomfort with assisted lid opening Face is symmetrical Tongue is midline, lesion on right side of tongue Motor Function: LUE: 5/5 RUE: 5/5 LLE: 5/5 RLE: 5/5 Bulk and tone: normal Sensation: Sensation is intact to light touch Coordination: Bilateral tremor in upper extremities but no ataxia Gait: Deferred NIH Stroke Scale Time: 6:45PM on 09/07/2024 Person Administering Scale: Vipin Salazar 1a Level of consciousness: 0=alert; keenly responsive 1b. LOC questions: 0=Performs both tasks correctly 1c. LOC commands: 0=Performs both tasks correctly 2. Best Gaze: 1=partial gaze palsy (due to ophthalmoplegia in left eye) 3. Visual: 3=Bilateral hemianopia (blind including cortical blindness) 4. Facial Palsy: 0=Normal symmetric movement 5a. Motor left arm: 0=No drift, limb holds 90 (or 45) degrees for full 10 seconds 5b. Motor right arm: 0=No drift, limb holds 90 (or 45) degrees for full 10 seconds 6a. motor left le=No drift, limb holds 90 (or 45) degrees for full 10 seconds 6b Motor right le=No drift, limb holds 90 (or 45) degrees for full 10 seconds 7. Limb Ataxia: 0=Absent 8. Sensory: 0=Normal; no sensory loss 9. Best Language: 0=No aphasia, normal 10. Dysarthria: 1=Mild to moderate, patient slurs at least some words and at worst, can be understood with some difficulty 11. Extinction and Inattention: 0=No abnormality Total: 5 Data: ECG: pending Labs: Lab Results Component Value Date WBC 16.5 (H) 09/07/2024 HGB 11.6 (L) 09/07/2024 HCT 33.7 (L) 09/07/2024 MCV 90 09/07/2024 PLT 10 (LL) 09/07/2024 Lab Results Component Value Date NA 141 09/07/2024 K 3.6 09/07/2024 CL 109 (H) 09/07/2024 CO2 21 (L) 09/07/2024 BUN 45 (H) 09/07/2024 CREAT 1.0 09/07/2024 GLUC 92 09/07/2024 CALCIUM 7.9 (L) 09/07/2024 No results found for: HSTNT No results found for: HGBA1C No results found for: CHOL , TRIG , HDL , ESTLDL Imaging Studies: MRI Brain (at [facility]): 1. Abnormalities of the left orbit including mild enlargement of the extraocular muscles, mild edema throughout the intra and extra conal fat, loss of the normal flow-void of the superior ophthalmic vein, mild enlargement of the left superior ophthalmic vein, minimal left lobe proptosis and left preseptal soft tissue edema. There may be thrombosis of the left superior ophthalmic vein. These findings all highly suggest left cavernous sinus thrombosis. 2. Right mastoid tympanic space effusion andcerumen impaction in the right external auditory canal. 3. Edema and swelling throughout the right temporalis muscle and involving the right > left muscles of mastication of uncertain etiology, direct extension of right mastoiditis is a consideration as is right cavernous sinus thrombosis. 4. High signal within the right sphenoid parietal sinus is also present suggesting thrombosis. Assessment & Plan Assessment: 63 y.o. right-handed male with past medical history of depression (on fluoxetine and risperidone), alcohol abuse (remission x 15 years), smoking (couple packs per week x 25 years) who presented to [facility] on 09/07 as a transfer from [facility] due to altered mental status, right ear pain, left eye/tongue swelling. EMS was called by his sister as his left eye swelling and vision worsened. At [facility], patient with temperature of 101, tachypnea/hypoxia, tachycardia. His labs werenotable for WBC 10.2, platelets 7, fibrinogen > 700, d-dimer 1650, lactic acid 5.1 --> 3.6. Occult stool positive for blood. CT chest with evidence of aspiration or endobronchial pneumonia. CT abdomen/pelvis with hepatosplenomegaly, distended gallbladder, thickening of the adrenal glands, bilateral periphrenic stranding, distended stomach with air-fluid level. CT head showed abnormal findings in the right mastoid air cells, middle, and external ear. Favor otitis media, externa with soft tissue abscess and mastoiditis. Brain MRI showed abnormalities of the left orbit including mild enlargement of the extraocular muscles, mild edema throughout the intra and extra conal fat, loss of normal flow-void of the superior ophthalmic vein, mild enlargement of the left superior ophthalmic vein,and left preseptal soft tissue edema, concerning for thrombosis of the left superior ophthalmic vein. MRV brain with normal flow related enhancement in the major cortical and dural venous sinuses. Given concern for left cavernous sinus thrombosis, he was transferred to [facility] and neurology was consulted. Recommendations: --Antibiotics per ID --Anticoagulation is generally the mainstay of treatment for cavernous sinus thrombosis but cannot likely be considered at this time given this patient's combination of medical co-morbidities. Will review with the ICU team. --Will review with interventional radiology team in the morning to determine if additional imaging will be necessary in the short term. Discussed with attending: Dr. Yudi Salazar PA-C 09/07/2024 7:24 PM [1] No Known Allergies Cosigned by Nanci Bagley MD at 09/08/2024 3:54 PM EDT Associated attestation - Nanci Bagley MD - 09/08/2024 3:54 PM EDT I personally saw and examined the patient on 09/08/24 with the PHI at his/her request for my Vascular Neurology expertise and reviewed the note as outlined . I have reconfirmed the history, repeated relevant exam, personally reviewed the labs and other diagnostic studies and relevant imaging studies and contributed significantly to the assessment and plan and agree with the history, exam, assessment and plan as detailed in the PHI's note with additions/corrections as below. Mr. Masterson's care was reviewed with KRISTA Jenkins 09/07 by phone at the time of the initial consultand again on rounds today. His care was also discussed with the MICU team. Presentation and initial exam as outlined below. Mr. Masterson had been intubated in the minutes preceeding our rounds and was not able to participate in a neurological exam today. Left eye proptotic with significant chemosis and periorbital swelling. Unresponsive due to sedatives for intubation. [facility] and asked our neuroRadiology colleagues for their impressions as well given the complexity of this case (pending). Left orbit abnormalities noted with swelling of the muscles and in the tissue around the eye. Potentially some edema/swelling in the right temporal lobe adjacent to the right eye structures. Extra-axial swelling in the right temporal lobe. On the imaging here today, not read formally yet, the arterial imaging shows arterial flow through the anatomical area of the cavernous sinuses bilaterally with both distal ICAs into the MCAs patent despite atherosclerotic disease. Both ophthalmic arteries traceable. Left ophthalmic vein--if what I'm visualizing, is distended (described as thrombosed on osh imaging) Mr. Masterson is critically ill related to a combination of factors and it remains to be seen if thereis a single unifying diagnosis. The clinical picture involving the left eye with proptosis, loss ofmovement and vision, and the loss of venous drainage/thrombosis would suggest a picture consistent with cavernous venous sinus thrombus. This is often but not always infectious and treated with a combination of antibiotics / antifungals depending on the source and anti- coagulants. However, in this case he cannot currently be safely treated with systemic anticoagulation given his platelets. His SPECIAL OFFICER parenchymal imaging was reassuring as of the 09/07 MRI and his admission neurological exam but he remains high risk for neurological compromise if he seeds infectious material through his system including in the brain. Low threshold to repeat brain MRI imaging with and without contrast (tumor protocols usually get nice thin cuts and with a skull base focus to capture the orbits / cavernoussinus region). STAT CT / CTA if abrupt change in neuro exam as he is also at risk for ICH We will continue to follow with you Nanci Bagley MD Vascular Neurology Attending Physician 09/08/24 3:23 PM * Tarun Young MD - 09/07/2024 6:36 PM EDT ENT CONSULT NOTE REQUESTING SERVICE: Medical ICU REASON FOR CONSULT: Left eye swelling and right ear pain HPI: Mariah Masterson is a 63 y.o. male with PMH of depression, alcohol abuse, smoking who is seen for ENT consultation regarding concern of left eye swelling and right ear pain. He presents as a direct admission from [facility] due to altered mental status and right ear pain and left eyeand tongue swelling. History is mostly obtained from chart review as well as documentation from medical ICU providers. Symptoms reportedly began around 4/12 after leaving work and he became lethargicand developed a headache. His symptoms suddenly worsened to develop worsening right ear pain as well as left eye pain. At evaluation at outside hospital, temperatures 101, white blood cell count 10.2. He had a lactic acidosis to 5.1 which is downtrended to 3.6 and now 1.9 today. WBC is now 16.5 today. He is currentlyon linezolid, flagyl, cefepine. Infectious disease has been consulted. CT head was obtained showing abnormal findings in right mastoid air cell, middle and external ear. This was independently reviewed and significant for mastoid air cell opacification, somewhat sclerotic mastoid at baseline, no evidence of erosive changes or coalescent mastoiditis. This is with thickcuts through the IAC. There is no evidence of paranasal sinus disease. He was evaluated by ENT at outside hospital. They determined that he does not have mastoiditis and transfer was not indicated. MRI brain with : 1. Abnormalities of the left orbit including mild enlargement of the extraocular muscles, mild edema throughout the intra and extra conal fat, loss of the normal flow-void of the superior ophthalmic vein, mild enlargement of the left superior ophthalmic vein, minimal left lobe proptosis and left preseptal soft tissue edema. There may be thrombosis of the left superior ophthalmic vein. These findings all highly suggest left cavernous sinus thrombosis. 2. Right mastoid tympanic space effusion and cerumen impaction in the right external auditory canal. 3. Edema and swelling throughout the right temporalis muscle and involving the right > left muscles of mastication of uncertain etiology, direct extension of right mastoiditis is a consideration as is right cavernous sinus thrombosis. 4. High signal within the right sphenoid parietal sinus is also present suggesting thrombosis. MRV brain with normal flow related enhancement in the major cortical and dural venous sinuses. He was evaluated by ophthalmology here. Imaging and clinical findings c/f left- sided cavernous sinus thrombosis with chemosis, proptosis and opthalmoplegia of left eye. Recommended broad spectrum antibiotics. On interview, patient reports symptoms began with left eye swelling and right ear pain about 4 daysago. He denies any known precipitating factor. He denies any history of head or neck surgery. PMH: No past medical history on file. PSH: No past surgical history on file. MEDS: Medications Scheduled Medication Ordered Dose/Rate, Route, Frequency Last Action cefepime (MAXIPIME) 2 g in sodium chloride-MBP (NS) 100 mL IVPB-MBP 2 g, 33.3 mL/hr, IV, Q8H New Bag, 2 g, 33.3 mL/hr at 09/07 181 linezolid (ZYVOX) IVPB 600 mg in 300 mL D5W (premix) 600 mg, 300 mL/hr, IV, Q12H Ordered methylPREDNISolone sodium succinate (SOLU-Medrol) injection 40 mg 40 mg, IV, Q8H ZO Ordered metroNIDAZOLE (FLAGYL) IVPB 500 mg in 100 mL NS (premix) 500 mg, 100 mL/hr, IV, Q12H New Bag, 500 mg, 100 mL/hr at 09/07 180 senna-docusate (SENNA-S) 8.6-50 MG tablet 2 tablet 2 tablet, PO, Nightly Ordered PRN Medication Ordered Dose/Rate, Route, Frequency Last Action bisacodyl (DULCOLAX) suppository 10 mg 10 mg, RE, Daily PRN Ordered dextrose 50 % solution 12.5 g (Or Linked Group #1) 12.5 g, IV, Q15 Min PRN Ordered dextrose 50 % solution 25 g (Or Linked Group #1) 25 g, IV, Q15 Min PRN Ordered glucagon (GLUCAGEN) injection 1 mg (Or Linked Group #1) 1 mg, IM, Daily PRN Ordered glucose (GLUTOSE 15) 40 % oral gel 37.5 g (Or Linked Group #1) 1 Tube, PO, Q15 Min PRN Ordered glucose (GLUTOSE 15) 40 % oral gel 75 g (Or Linked Group #1) 2 Tube, PO, Q15 Min PRN Ordered lactulose (ENULOSE) 10 gm/15 mL solution 20 g 30 mL, PO, Q4H PRN Ordered naloxone (NARCAN) 0.4 mg/mL injection 0.4 mg 0.4 mg, IV, Q5 Min PRN Ordered ALLERGIES: Allergies[1] SOCIAL HISTORY: Social History Socioeconomic History Marital status: Not on file Spouse name: Not on file Number of children: Not on file Years of education: Not on file Highest education level: Not on file Occupational History Not on file Tobacco Use Smoking status: Not on file Smokeless tobacco: Not on file Substance and Sexual Activity Alcohol use: Not on file Drug use: Not on file Sexual activity: Not on file Other Topics Concern Not on file Social History Narrative Not on file Social Drivers of Health Financial Resource Strain: Not on file Food Insecurity: Not on file Transportation Needs: Not on file Physical Activity: Not on file Stress: Not on file Social Connections: Not on file Housing Stability: Not on file FAMILY HISTORY: No family history on file. REVIEW OF SYSTEMS: Relevant otolaryngologic ROS as per HPI. PHYSICAL EXAM: BP 128/59 Pulse 91 Temp 96.9 ??F (36.1 ??C) (Tympanic) Resp (!) 32 Ht 1.905 m (6' 3 ) Wt 95.9 kg (211 lb 6.7 oz) SpO2 93% BMI 26.43 kg/m?? General: Well-nourished, well-developed. NAD. Head: Normocephalic, atraumatic. Eyes: Right pupil RRL, full EOM. Left eye with no EOM, absent vision, non- reactive to light. Face: significant left eye cellulitic changes and edema Ears: Normal external ears. No evidence of mastoid erythema, tenderness, or proptosis bilaterally. Right ear with purulence of EAC and pooling in conchal bowl. Wick is in place. Left EAC clear with intact TM, no middle ear effusion. Nose: Normal external nose. Straight without lesions. Rhinoscopy reveals normal mucosa with leftward deviated septum, normal turbinates, no lesions or drainage. Oral cavity/oropharynx: Dry oral cavity. No visualized lesions of oral cavity. Neck/Lymphatic: Soft and supple. No midline or lateral neck masses. Normal thyroid. Full ROM. No enlarged lymph nodes in post or preauricular, jugulodigastric chain, submental, central compartments. Larynx: normal voice without hoarseness. Respiratory: Normal respiratory effort. No respiratory distress. No stridor or stertor Psych: Mood, insight, and judgment appropriate. Appropriate affect. LABS: Lab Results Component Value Date WBC 16.5 (H) 09/07/2024 HGB 11.6 (L) 09/07/2024 HCT 33.7 (L) 09/07/2024 MCV 90 09/07/2024 PLT 10 (LL) 09/07/2024 Lab Results Component Value Date CALCIUM 7.9 (L) 09/07/2024 NA 141 09/07/2024 K 3.6 09/07/2024 CO2 21 (L) 09/07/2024 CL 109 (H) 09/07/2024 BUN 45 (H) 09/07/2024 IMAGING: No results found. Procedures: Endoscopic/fiberoptic nasal examination: Nasal endoscopy: With verbal consent a flexible nasal endoscopy was performed. Flexible endoscope was first passed into the right nasal cavity without difficulty. The septum appeared to be midline. The inferior aspect of the nasal cavity was clear and there were no signs of any masses, lesions, or polyps. The inferior and middle turbinates were normal in appearance. The scope was then passed into the area of the middle meatus which was clear. The posterior nasal cavity was then evaluated. The superior turbinatewas normal in appearance and the superior meatus was open without drainage. The sphenoethmoidal recess was normal. The right side of the nasopharynx was clear. The left nasal cavity was then evaluated. The flexible endoscope was passed into the left nasal cavity without difficulty. The septum appeared deviated significantly to the left. The inferior aspect of the nasal cavity was clear and there were no signs of any masses, lesions, or polyps. The inferior and middle turbinates were normal in appearance. No purulence visualized.. The posterior nasal cavity was then evaluated.The sphenoethmoidal recess was normal. The left side of the nasopharynx was clear. ASSESSMENT: 63 y.o. male with alcohol and tobacco use history presenting to OSH initially for left eye swellingand right ear pain. He has findings consistent with left sided cavernous sinus thrombosis. Overall,he has no paranasal sinus disease on CT scan and normal nasal endoscopy which makes sinonasal source of infection very unlikely. Would recommend continued management for eye findings per other consulting services. Additionally he has clinical findings consistent with right sided otitis externa and media based onCT scan. There is no clinical evidence of mastoiditis. However, we would recommend dedicated imaging as listed below for further evaluation of the ear. We do not think this is related to his eye pathology. PLAN: No ENT surgical intervention Recommend CT IAC with contrast Follow up right ear culture Ciprodex drops as ordered Rest of antibiotics per ID team Appreciate ID, ophthalmology, neurology input We will continue to follow. Please reach out with any questions or concerns Thank you for the opportunity to participate in the care of this patient. D/w Dr. Salty Young MD Otolaryngology [facility] ENT or page resident environmental sampler for any questions or concerns. Confirm receipt of text or send page for any urgent concerns. [1] No Known Allergies Cosigned by Jose Pond MD at 09/08/2024 6:41 AM EDT Associated attestation - Jose Pond MD - 09/08/2024 6:41 AM EDT I have seen patient and agree with assessment and plan * Barry Thompson MD - 09/07/2024 6:21 PM EDT Ophthalmology Consult Note 09/07/24 S: Mr. Masterson is awake but orientation is not excellent and history is poor. He is not sure when left eye swelling started, but records state this started on Wednesday, possibly earlier. He has been given IV antibiotics O: Near visual acuity: Right eye without correction 20/50, Left eye no light perception Pupils: Right pupil 3-2, briskly reactive, left eye nonreactive to light (though mild constriction to light in fellow eye), 5 mm, + rapd left eye IOP - 17 right eye 22 left eye CVF - Full right eye, unable left eye EOM - Full right eye, no movement whatsoever of left eye Color Plates - /9 right eye, unable left eye Right eye: unremarkable lids/lashes, conj/sclera white and quiet, clear cornea, well formed AC, flat iris, 2+ NS, clear vitreous, disc is s/p/f, unremarkable vessels and macula grossly Left eye: 2+ upper and lower lid edema, lids are not tense, 3+ chemosis, clear cornea, well formed AC, flat iris, 2+ NS, clear vitreous, disc is not frankly edematous, veins are engorged, macula grossly unremarkable Imaging: No direct access to imaging at this time I was able to see the one page paper copy of the MRI brain (impression only), reportedly with MRV, I have not seen the result. Brain MRI 09/07/24 9 AM. Impression - left orbit with mild enlargement of the extraocular muscles, mild edema throughout theintraconal and extraconal fat, loss of the normal flow void of the superior ophthalmic vein, mild enlargement of the left superior ophthalmic vein, minimal left globe proptosis, and left preseptal soft tissue edema. There may be thrombosis of the left superior ophthalmic vein. Findings highly suggestive of left cavernous sinus thrombosis Of note in impression also with edema of right temporal muscles with right cavernous sinus thrombosis as a consideration of cause. A/P #Imaging and clinical findings concerning for left-sided cavernous sinus thrombosis Chemosis, mild proptosis, and ophthalmoplegia are all concerning for cavernous sinus syndrome. At this time from an ophthalmologic perspective no evidence of right eye involvement. His vision in the left eye is no light perception. Cavernous sinus disease alone does not explain loss of vision. Thiscan be seen as the result of severe acute IOP elevation which he does not have as his IOP is only 22, or severely edematous optic nerve for an extended period of time but his nerve is not swollen. The thrombosis may have disrupted blood-flow or perhaps involvement of the orbital apex or posterior ischemic optic neuropathy given unremarkable fundus exam. - We discussed given no light perception vision in the left eye that he has a poor visual prognosis. There are no acute interventions that can be recommended to help his left eye vision - Agree with broad-spectrum antibiotics and infectious work-up at this time. ENT, infectious disease, and neuro have been consulted. Defer anticoagulation recommendations -Please inform ophthalmology if any changes in right eye vision * Laurita Perduejose ramon, STUDENT - 09/07/2024 5:46 PM EDTAssociated Order(s): IP CONSULT TO SOCIAL WORK Images from the original note were not included. Health Social Work Brief Note Date: 09/07/2024 Referred by: Provider/HPI Reason for Referral: Advance Directives Previous Social Work Encounters: None noted in EMR Mariah Masterson is a 63 y.o. male currently admitted for: Acute cerebral venous sinus thrombosis Assessment & Plan Summary Mariah Masterson was referred to Health Social Work (SW) by KRISTA Jones for advance care planning. Pt was a direct admit from and OSH with complex medical history and chart is being reviewed by medical team. Spoke with PA who referred patient for appointment of a healthcare independent sales representative to identify what needs patient has at this time. KRISTA Jones shares patient is not but does have a daughter who lives in [place] who would be LNOK, but he does not want her contacted at this time. His mother is still living and he also has a sister who would be his choices for decision maker. At this time pt is alert and able to make decisions. Two witnesses would need to be present to complete the advance directives. SW willing and able to discuss and complete paperwork with patient if there is a care preanalytics team lead who is willing to be a witness along with SW. SW will place patient chart in the follow up folder and provide assistance as needed. Unit SW can assist with paperwork if not completed this evening ADDENDUM SHEYLA met with pt briefly to discuss and explain LNOK and healthcare independent sales representative documentation. Pt discloses he is not but has a daughter who he is estranged from for over 40 years. He states she moved to [place] 30 years ago and he does not know how to get in touch with her. He stated her name is Lindsay Causey (unsure of spelling) does not know where in [place] she lives. Pt was informed of LNOK and that she would need to be contacted if he is unable to make decisions for himself before completing healthcare independent sales representative paperwork and that can not be done until tomorrow morning when 2 witnesses are available to sign paperwork. Pt states he would like to name his sister Carmina as primary HCR and his mom Emperatriz as secondary HCR. Contact information for both is listed under emergency contacts and has been confirmed at [facility] where he was earlier today before being transferred to [place]. Pt repeated information about LNOK and HCR back to ensure understanding. SW attempted to search for daughters contact information without any success. Providers in ICU were updated on conversation and plan for HCR paperwork to be completed tomorrow as soon as possible pendingpt is alter and oriented. Sign: WILLIAMS Medina Cosigned by Sunitha Beltran LCSW at 09/14/2024 11:47 AM EDT documented in this encounter Miscellaneous Notes * Case Coordination-Payor Communication - Linda Combs - 09/22/2024 2:13 PM EDT PATIENT DISCHARGED 09/22/2024 Per State [facility] General Statutes Sec: [id number]: Notification of determination shall be mailed or otherwise communicated within 2 business days of receipt of all information necessary to complete the review. Please fax authorization determination to [phone] or call [phone] * Plan of Care - Parisa Rosa RN - 09/22/2024 1:14 PM EDT Pt is A&Ox3, off time. Meds administered per JUL. Heparin gtts at 13.8 units/kg. Flexiseal in place, no leakage, no discomfort. Report given to Sandie TORRES at [facility]. Problem: Adult Inpatient Plan of Care Goal: Plan of Care Review Outcome: Met Goal: Patient-Specific Goal (Individualized) Outcome: Met Goal: Absence of Hospital-Acquired Illness or Injury Outcome: Met Goal: Optimal Comfort and Wellbeing Outcome: Met Goal: Readiness for Transition of Care Outcome: Met Problem: Restraint, Nonviolent Goal: Absence of Harm or Injury Outcome: Met Problem: Skin Injury Risk Increased Goal: Skin Health and Integrity Outcome: Met Problem: Fall Injury Risk Goal: Absence of Fall and Fall-Related Injury Outcome: Met Problem: Oral Mucous Membrane Integrity Impairment Goal: Improved Oral Health Outcome: Met Problem: Mechanical Ventilation Invasive Goal: Effective Communication Outcome: Met Goal: Optimal Device Function Outcome: Met Goal: Mechanical Ventilation Liberation Outcome: Met Goal: Absence of Device-Related Skin and Tissue Injury Outcome: Met Goal: Absence of Ventilator-Induced Lung Injury Outcome: Met Parisa Rosa 09/22/2024 1:14 PM * Plan of Care - Carlotta Harrison RN - 09/22/2024 11:15 AM EDT Problem: Adult Inpatient Plan of Care Goal: Readiness for Transition of Care Outcome: Progressing Ongoing Case Management Care Plan Note Summary: CM notified by [facility] that [facility] Terese requesting Demographics/facesheet and clinicalnotes to be faxed to [phone] by unit CM. Unit CM faxed to number listed above. CM notified CM AA of need for auth for transfer to [place]. Recommendation: Transfer to [facility]- pending acceptance/ auth Carlotta Harrison 09/22/2024 11:15 AM * Rehab Therapy Consults - Sera Hook CCC-FORENSIC BALLISTICS EXPERT - 09/22/2024 11:15 AM EDT Speech Pathology Motor Speech Evaluation & Dysphagia Treatment IMPRESSION & PLAN Dysphagia; unresolved Initiated swallow exercises to improve swallow efficiency and safety Will plan to complete EMST and IOPI in upcoming days Dysarthria Presenting with at least mild deficits as noted through informal assessment; will benefit from formal assessment at next level of care Initiated speech strategies to improve intelligibility Diet Recommendations: Solid Consistency: Minced & Moist Liquid Consistency: Thin Liquids Medication Administration: Crushed (if able) in puree or Whole in puree Supervision/Assistance: 1:1 Feeding Oral Care: q6hr with non-vent oral care kit FORENSIC BALLISTICS EXPERT Therapy Plan: diet advancement when clinically appropriate, rehabilitation exercises (IOPI, EMST, effortfuls, etc.), motor speech intervention HISTORY OF PRESENT ILLNESS Pt is a 64 y.o. male with pertinent PMHx of depression alcohol abuse, and tobacco use who presentedto OSH for left eye swelling and R ear pain, transferred to 09/07/2024 for further work-up and management of caverbous sinus thrombrosis. Hospital course c/b ARDS requiring intubation. MRI with susp icion of meningitis/encephalitis. PMHx: Past Medical History: Diagnosis Date Depression SUBJECTIVE Pt received upright in bed, alert and appropriate, in no acute distress. No dysphagia concerns reported following oral diet initiation yesterday, consistent with RN report. Patient/family therapy goal statement: None stated Preferred Language: Barbadian Pain: No pain reported Cognition: Follows commands Speech & Language: Dysarthria Vocal Quality: No appreciable phonatory insufficiency Cranial Nerve/Oral Mech Exam Trigeminal (CN V): Jaw opening is symmetric, sensation intact to light touch Facial (CN VII): Upper facial muscle function reduced on the left Glossopharyngeal (IX)/Vagus (X): Soft palate elevates normally Hypoglossal (XII): Tongue protrudes deviates to the right, right-sided weakness Dentition: Edentulous Oral Hygiene: Adequate Secretions: Independently managing secretions Volitional Cough: Appears strong Current Status Diet: Minced & Moist, Thin liquids Respiratory Status: Room air Intubation History: Earlier this admission [place] for Feeding: may need assist Mobility: See PT/OT Notes General Health: Lab Results Component Value Date WBC 10.4 09/21/2024 Temp Last 24 hrs: Temp Min: 97.2 ??F (36.2 ??C) Max: 97.6 ??F (36.4 ??C) EVALUATION OBJECTIVE Motor Speech Overall Intelligibility: 51-75% Articulation: Imprecise articulation Respiration: Reduced loudness Resonance: WFL Prosody: Rapid rate Phonation: No appreciable phonatory insufficiency Apraxia of Speech: No TREATMENT OBJECTIVE Dysphagia Intervention - pt accepted puree consistency for purpose of exercise, completed effortful swallow 40x with initial but fading cues. Re-education provided to pt re: results/recommendations s/p MBS, aspiration precautions, and safe swallow strategies to improve swallow efficiency (alternate bites/sips). Comprehension verbalized. Education also provided re: strategies to improve speech intelligibility (over- articulation, slow rate). Initial carryover noted, though pt did not carry it over into spontaneous conversation. ASSESSMENT FORENSIC BALLISTICS EXPERT Diagnosis: Dysarthria Suggested Consults/Interventions: N/A Functional Status: Below baseline function Therapy Frequency: 2-3x/week EDUCATION Separate and distinct therapy session completed with patient and RN following this evaluation. Provided instruction and education on pt's personal anatomy/physiology of deficits, diagnosis/problems, and results/recommendations. The patient and RN verbalized understanding of all those presented. All questions answered to the patient and RN's satisfaction. MOI DarlingFORENSIC BALLISTICS EXPERT 09/22/24 * Plan of Care - Judy Nielsen RN - 09/22/2024 7:36 AM EDT Assumed patient care from 1900. Patient is A+Ox3; off time and on RA. Medicated per JUL. Heparin drip running at 13.8units/kg/hr,on daily anti-xa. Monitored BG as ordered. Removed DHT; able to tolerate PO fluids. Still with loose stool noted on flexiseal; held due samira &MD Yumiko notified. Elevated heels with [employer] boots. Alarm activated, call garcia in place and safety maintained. Problem: Adult Inpatient Plan of Care Goal: Plan of Care Review Outcome: Progressing Goal: Patient-Specific Goal (Individualized) Outcome: Progressing Goal: Absence of Hospital-Acquired Illness or Injury Outcome: Progressing Goal: Optimal Comfort and Wellbeing Outcome: Progressing Goal: Readiness for Transition of Care Outcome: Progressing Problem: Restraint, Nonviolent Goal: Absence of Harm or Injury Outcome: Progressing Problem: Skin Injury Risk Increased Goal: Skin Health and Integrity Outcome: Progressing Problem: Fall Injury Risk Goal: Absence of Fall and Fall-Related Injury Outcome: Progressing Problem: Oral Mucous Membrane Integrity Impairment Goal: Improved Oral Health Outcome: Progressing Problem: Mechanical Ventilation Invasive Goal: Effective Communication Outcome: Progressing Goal: Optimal Device Function Outcome: Progressing Goal: Mechanical Ventilation Liberation Outcome: Progressing Goal: Absence of Device-Related Skin and Tissue Injury Outcome: Progressing Goal: Absence of Ventilator-Induced Lung Injury Outcome: Progressing Judy Nielsen 09/22/2024 7:36 AM * Plan of Care - Tim Haas RN - 09/21/2024 8:03 PM EDT Assumed care of patient [id number]. Pt alert and oriented x3, off to time. MBS completed off unit prior to assuming care. Heparin drip running at 13.8 units/kg/hr. Pt remains on tele in NSR, VSS on RA. No c/o pain. Pt medicated per JUL. DHT remains in place. Diet advanced and pt tolerating w/o issue; aspiration precautions maintained. Flexiseal and purewick in place. Family at bedside during shift, remains supportive. Call garcia within reach; safety maintained. Tim Haas 09/21/2024 8:03 PM * Plan of Care - Kira Bruce MD - 09/21/2024 2:22 PM EDT FAMILY UPDATE Spoke with patient's two siblings and his mother at the bedside & discussed plan for transfer back to [facility] if they have the beds/they accept the transfer. Family is very excited aboutthis and hopeful for transfer to ANY [place] hospital in the area (such as [facility]). Informed them I cannot make any promises but that we will attempt to facilitate this transfer for the patient. Kira Bruce, PGY-3 Internal Medicine Available on [employer] * Plan of Care - Kathleen Keith RN - 09/21/2024 12:54 PM EDT Assumed care at 0700. Pt a&ox2, disoriented to time and situation. Speech garbled due to tongueswelling. Medicated per JUL, heparin gtt running at 13.8 u/kg/hr. Pt off floor to fluoro for MBS. Flexiseal in place. NSR on tele. All safety maintained. Problem: Adult Inpatient Plan of Care Goal: Plan of Care Review Outcome: Progressing Goal: Patient-Specific Goal (Individualized) Outcome: Progressing Goal: Absence of Hospital-Acquired Illness or Injury Outcome: Progressing Goal: Optimal Comfort and Wellbeing Outcome: Progressing Goal: Readiness for Transition of Care Outcome: Progressing Problem: Restraint, Nonviolent Goal: Absence of Harm or Injury Outcome: Progressing Problem: Skin Injury Risk Increased Goal: Skin Health and Integrity Outcome: Progressing Problem: Fall Injury Risk Goal: Absence of Fall and Fall-Related Injury Outcome: Progressing Problem: Oral Mucous Membrane Integrity Impairment Goal: Improved Oral Health Outcome: Progressing Problem: Mechanical Ventilation Invasive Goal: Effective Communication Outcome: Progressing Goal: Optimal Device Function Outcome: Progressing Goal: Mechanical Ventilation Liberation Outcome: Progressing Goal: Absence of Device-Related Skin and Tissue Injury Outcome: Progressing Goal: Absence of Ventilator-Induced Lung Injury Outcome: Progressing Kathleen Keith 09/21/2024 12:54 PM * Rehab Therapy Consults - Sera Hook CCC-FORENSIC BALLISTICS EXPERT - 09/21/2024 9:45 AM EDT Speech Pathology Modified Barium Swallow (MBS) Evaluation & Treatment IMPRESSION & PLAN Moderate oropharyngeal dysphagia Suspected to be ISO acute illness, recent prolonged intubation, and neurological changes with oral motor weakness Aspiration of thicker consistencies noted; improved with thin liquids Deficits noted in swallow efficiency; would consider calorie counts to ensure that pt is meeting caloric needs Anticipate further gains in swallow function s/p rehabilitation and following return to oral diet Diet Recommendations: Solid Consistency: Minced & Moist Liquid Consistency: Thin Liquids Medication Administration: Crushed (if able) in puree or Whole in puree Supervision/Assistance: 1:1 Feeding Oral Care: q6hr with non-vent oral care kit FORENSIC BALLISTICS EXPERT Therapy Plan: ensure tolerance of oral diet without acute complications, diet advancement when clinically appropriate, rehabilitation exercises (IOPI, EMST, effortfuls, etc.), motor speech evaluation HISTORY OF PRESENT ILLNESS Pt is a 64 y.o. male with pertinent PMHx of depression alcohol abuse, and tobacco use who presentedto OSH for left eye swelling and R ear pain, transferred to 09/07/2024 for further work-up and management of caverbous sinus thrombrosis. Hospital course c/b ARDS requiring intubation. MRI with susp icion of meningitis/encephalitis. Reason for Consult: MBS Pertinent Results: No updated results PMHx: Past Medical History: Diagnosis Date Depression SUBJECTIVE Pt received upright in fluoro chair, alert and oriented, in no acute distress. Dysarthria appears slightly improved today. Patient/family therapy goal statement: to eat/drink Preferred Language: Barbadian Pain: No pain reported Cognition: Follows commands Speech & Language: Dysarthria Vocal Quality: No appreciable phonatory insufficiency Current Status Diet: NPO, TFs via DHT Respiratory Status: Room air Intubation History: Intubated earlier this admission [place] for Feeding: Assistance required d/t acute illness Mobility: See PT/OT Notes General Health: Lab Results Component Value Date WBC 10.1 09/21/2024 Temp Last 24 hrs: Temp Min: 96.9 ??F (36.1 ??C) Max: 100.2 ??F (37.9 ??C) EVALUATION OBJECTIVE Modified Barium Swallow Study (MBS) Views Taken: Left lateral, A/P Factors Influencing Performance: No difficulties participating in study Anatomic Observations: No anatomical abnormalities noted Consistencies Assessed Liquids: Thin Liquids, Mildly Thick Liquids, and Moderately Thick Liquids Solids: Puree, Regular: Barium Tablet: No Methods of Administration: spoon, cup, single swallows, sequential swallows, clinician-fed Oral Phase Lip Closure: (3) Escape progressing to mid-chin Tongue Control During Bolus Hold: (1) Escape to lateral buccal cavity/floor of mouth Bolus Preparation/Mastication: (3) Minimal chewing/mashing with majority of bolus unchewed requiring oral extraction Bolus Transport: (1) Delayed initiation of tongue motion Oral Residue: (3) Majority of bolus remaining Initiation of the Pharyngeal Swallow: (1) Bolus head in valleculae Pharyngeal Phase Soft Palate Elevation: (0) No bolus between soft palate and pharyngeal wall Laryngeal Elevation: (3) No superior movement of thyoid cartilage Anterior Hyoid Excursion: (1) Partial anterior movement Epiglottic Movement: (2) No inversion Laryngeal Vestibule Closure: (2) None; wide column air/contrast in laryngeal vestibule Pharyngeal Stripping Wave: (1) Present - diminished Pharyngeal Contraction (A/P View): (1) Incomplete Pharyngoesophageal Segment (PES) Opening: (1) Partial distension/partial duration; partial obstruction of flow Tongue Base Retraction: (1) Trace column of contrast or air between tongue base and posterior pharyngeal wall Pharyngeal Residue: (3) Majority of contrast within or on pharyngeal structures Location: Valleculae and Pyriforms Clearance: Mostly cleared following multiple independent swallows and liquid wash Esophageal Phase Esophageal Clearance: (2) Esophageal retention with retrograde flow below PES 8-Point Penetration Aspiration Scale (PAS), (Rosenbeck, 1996) Thin Liquids: 5 - Material enters the airway, contacts the vocal cords, is not ejected from the airway (penetration) Mildly Thick Liquids: 7 - Material enters the airway, passes below the vocal cords, is not ejected from the trachea despite effort (aspiration) Moderately Thick Liquids: 7 - Material enters the airway, passes below the vocal cords, is not ejected from the trachea despite effort (aspiration) Puree: 1 - No aspiration, material does not enter the airway Thin Liquids: Aspiration/Penetration: Yes via cup, single swallows, sequential swallows PAS: 5 (penetration) Frequency: Single Event (usually remained above the cords) Amount: Trace (resembles faint coating, droplets or trickle of bolus on/below TVF) Timing: During the swallow Sensation/Response: Throat clear Cause: Impaired laryngeal vestibule (LVC) closure Mildly and Moderately Thick Liquids: Aspiration/Penetration: Yes via cup, single swallows PAS: 7 (aspiration) Frequency: Intermittent (on multiple but <50% of trials on a single consistency) Amount: Neither trace nor gross Timing: After the swallow Sensation/Response: suspect delayed cough response Cause: Impaired pharyngeal transport (residue) Compensatory Strategies Successful Compensatory Strategies: Liquid wash and repetitive swallows Risk Profile for Adverse Aspiration-Related Events (Mir et al., 202) General health: Frail or deconditioned Medical conditions: Weak cough Oral health: Poor oral care routine Dependence for ADLs: Dependent on others for oral care, Dependent on others for feeding, and Reduced mobility Iatrogenic concerns: Tubes/lines with potential to harbor bacteria that can be transferred to the lungs with prandial aspiration/microaspiration (trach, DHT) Bolus variables: Aspiration on instrumental swallowing assessment Risk for adverse event from aspiration: Yes TREATMENT OBJECTIVE Strategy Training: liquid wash, multiple swallows per bolus Education provided to pt res: results/recommendations, purpose/rational for modified diet, and aspiration precautions. Comprehension verbalized. ASSESSMENT Overall, pt presenting with moderate oropharyngeal, likely acute ISO deconditioning/weakness related to lengthy NPO period and acute neurological changes/weakness. Deficits resulting in impairments in swallow safety and efficiency. Risks to develop aspiration-related complications remain acutely pre sent given reduced mobility, dependence for feeding/oral care, and dysphagia warranting ongoing aspiration precautions including diligent and frequent oral hygiene. FORENSIC BALLISTICS EXPERT Diagnosis: Oropharyngeal Dysphagia Suggested Consults/Interventions: N/A Functional Status: Below baseline function Therapy Frequency: 2-3x/week Rehab Potential: Good to achieve functional improvement towards stated goals Post Acute FORENSIC BALLISTICS EXPERT Needs: TBD based on clinical progress Goals - Pt will consume a Minced & Moist diet with Thin Liquids liquids without evidence of acute dysphagia/aspiration-related complications over every visit(s) Plan of care discussed with patient, Provider, and RN EDUCATION Separate and distinct therapy session completed with patient, Provider, and RN following this evaluation. Provided instruction and education on pt's personal anatomy/physiology of deficits, diagnosis/problems, results/recommendations, and treatment plan. The patient, Provider, and RN verbalized understanding of all those presented. All questions answered to the patient, Provider, and RN's satisfaction. Sera Hook CCC-FORENSIC BALLISTICS EXPERT 09/21/24 * Case Coordination-Payor Communication - Amparo Sethi RN - 09/21/2024 8:00 AM EDT Continued Stay Review Date: 09/21/2024 Clinical Update: Mariah Masterson is a 63 year old male with PMHx of depression, alcohol abuse, tobacco use who presented to OSH for concern of left eye swelling, tongue swelling, right ear pain, and decreased visual acuity of left eye. He was ultimately transferred to for ENT, ophthalmology, ID, neuro consults. He was admitted for further management of cavernous sinus thrombosis with course complicated by worsening hypoxia with concern for diffuse alveolar hemorrhage in the setting of ARDS. MRI with meningitis/encephalitis. Transitioned from the ICU last evening. A&Ox2, disoriented to time and situation. Speech garbled d/t tongue swelling. L eye swelling continues, redness & no vision. Heparin gtt continues. IVFincreased to 75 mL/hr. Remains NPO, DHT in place. Flexiseal patent. NSR on telemetry monitoring. Neurology following, recommendations in place: Assessment: - Suspected RIGHT otitis externa/media complicated by mastoiditis & soft tissue abscess & orbital involvement (preseptal edema). - Concerns for non occlusive cavernous sinus thrombosis & internal jugular vein non occlusive filling defects Plan: - Agree with therapeutic anticoagulation -- Reasonable to continue heparin gtt while inpatient -- Consider DOAC vs. VKA for continued anticoagulation as outpatient (defer decision to primary team) -- Overall would consider at least 3-6 months of anticoagulation -- Would recommend repeating MRV at 3 month avery to assess for clot burden to determine whether anticoagulation can be discontinued or should be continued -- Recommend outpatient vascular neurology follow up to assist with decision making - Low threshold to obtain emergent CT head with acute neurological changes while on anticoagulation ID following, recommendations in place: Assessment & Plan Assessment Alcohol use disorder in remission for 15 years Tobacco use disorder with a [id number] history Presenting with altered mental status, left eye swelling, tongue swelling and severe right ear pain MRIs were done and the patient was sent down here It looks like he has a cavernous sinus thrombosis. 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 Bronchoscopy was done 417 culture of his ear is growing yeast and Bordetella trematum He remains on the ventilator Repeat MRI is about the same He is awake alert and following He is extubated His speech is better Temperature is 100 with a white count of 10.1 and a creatinine of 0.8 We took him off antibiotics Plan Needs ongoing physical therapy and OT PLAN: # Septic cavernous sinus thrombosis # Meningitis/Encephalitis # GNR bacteremia # R Otitis Externa Culture: ENT evaluted - we will switch ciprodex otic drops to acetic acid given culture growing yeast # L Vision Loss Ophthalmology evaluated patient due to chemosis, proptosis --> symptoms related to cavernous sinus thrombosis. 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 Evaluated by oncology; received IVIG Plan: # Dysphagia Plan: - [employer] to continue to follow # Aortic Stenosis Consider structural heart evaluation when medically stable (not at this time per cardiology) Vitals: Date/Time Temp Pulse Resp BP SpO2 O2 Device 09/21/24 0532 96.9 (36.1) 82 18 118/60 97 room air (none) Meds/Treatments: Scheduled Medication Ordered Dose/Rate, Route, Frequency Last Action chlorhexidine (PERIDEX) 0.12 % oral solution 15 mL 15 mL, MT, BID Given, 15 mL at 09/20 214 chlorhexidine gluconate 2 % wipes - urethral catheter CHG application No Dose/Rate, TOP, Daily Given, 1 each at 09/20 09 FLUoxetine (PROzac) 20 MG/5ML solution 40 mg 40 mg, PER NG TUBE, Daily Ordered folic acid (FOLVITE) tablet 1 mg 1 mg, FT, Daily Given, 1 mg at 09/18 817 insulin lispro (HumaLOG/ADMELOG) 100 units/mL injection 1-6 Units 1-6 Units, SC, Q4H ZO Given, 1 Units at 09/20 1227 methylPREDNISolone sodium succinate (SOLU-Medrol) injection 40 mg 40 mg, IV, Q24H ZO Given, 40 mg at 09/20 0926 metoPROLOL TARTRATE (LOPRESSOR) tablet 50 mg 50 mg, PER NG TUBE, Q12H ZO Ordered multivitamin with minerals (CEROVITE) liquid 15 mL 15 mL, FT, Daily Given, 15 mL at 09/18 0819 nicotine (NICODERM CQ) 21 MG/24HR patch 1 patch 1 patch, TD, Daily Patch Applied, 1 patch at 09/20 09 [Provider Held] nystatin (MYCOSTATIN) 349835 UNIT/ML suspension 500,000 Units On hold since today at 0756 until manually unheld Hold reason: Other - Comment required 500,000 Units, MT, 4x Daily Ordered polyethylene glycol (miraLAx) packet 17 g 17 g, FT, BID Given, 17 g at 09/19 0718 potassium chloride (KLOR-CON) packet 40 mEq 40 mEq, PER NG TUBE, q2h Ordered senna-docusate (SENNA-S) 8.6-50 MG tablet 2 tablet 2 tablet, FT, BID Given, 2 tablet at 09/18 817 thiamine mononitrate (VITAMIN B-1) tablet 100 mg 100 mg, FT, Daily Given, 100 mg at 09/18 817 Continuous Medication Ordered Dose/Rate, Route, Frequency Last Action heparin (porcine) IV infusion 25,000 units in 500 mL 0.45% NaCl (premix) 10.8 Units/kg/hr, IV, Continuous Rate Change - High Risk Medication, 13.8 Units/kg/hr at 09/21 154 PRN Medication Ordered Dose/Rate, Route, Frequency Last Action acetaminophen (TYLENOL) tablet 975 mg 975 mg, PER NG TUBE, Q6H PRN Ordered bisacodyl (DULCOLAX) suppository 10 mg 10 mg, RE, Daily PRN Ordered dextrose 50 % solution 12.5 g (Or Linked Group #1) 12.5 g, IV, Q15 Min PRN Ordered dextrose 50 % solution 25 g (Or Linked Group #1) 25 g, IV, Q15 Min PRN Ordered glucagon (GLUCAGEN) injection 1 mg (Or Linked Group #1) 1 mg, IM, Daily PRN Ordered glucose (GLUTOSE 15) 40 % oral gel 37.5 g (Or Linked Group #1) 1 Tube, PO, Q15 Min PRN Ordered glucose (GLUTOSE 15) 40 % oral gel 75 g (Or Linked Group #1) 2 Tube, PO, Q15 Min PRN Ordered heparin (porcine) 1000 unit/mL injection 2,800 Units 30 Units/kg, IV, Q6H PRN Ordered lactulose (ENULOSE) 10 gm/15 mL solution 20 g 20 g, PER NG TUBE, Daily PRN Ordered naloxone (NARCAN) 0.4 mg/mL injection 0.4 mg 0.4 mg, IV, Q5 Min PRN Ordered Labs/Diagnostics: 09/21/24 00:22 09/21/24 04:03 09/21/24 05:15 White Blood Cell Count 10.5 10.1 Red Blood Cell Count 2.45 (L) 2.41 (L) Hemoglobin 8.3 (L) 8.1 (L) Hematocrit 25.4 (L) 25.1 (L) MCV 104 (H) 104 (H) MCH 33.9 (H) 33.6 (H) MCHC 32.7 32.3 RDW 22.9 (H) Platelet Count 256 223 MPV 12.5 12.6 (H) nRBC 0.3 (H) 0.3 (H) nRBC, Absolute 0.03 (H) 0.03 (H) Sodium 149 (H) 146 (H) Potassium 4.1 3.6 Chloride 120 (H) 118 (H) CO2, POC 20 (L) 21 (L) Anion Gap 9 7 BUN 40 (H) 36 (H) Creatinine 0.8 0.8 Bun / Creat Ratio 50 (H) 45 (H) Glucose 102 (H) 102 (H) Calcium 7.5 (L) 7.3 (L) Magnesium 2.7 2.7 eGFR >90 >90 Phosphorus 3.1 2.8 Anticoagulant IV HEPARIN, UNFRACTIONATED IV HEPARIN, UNFRACTIONATED Anti Xa 0.26 0.36 POC Glucose 124 (H) Bed Type: Telemetry D/C Plan: Ongoing Sign Amparo Sethi RN 09/21/2024 8:00 AM * Plan of Care - Lydia Diego RN - 09/21/2024 6:35 AM EDT Assumed care 1900. Patient alert and oriented x2, off to time and situation. Speech garbled d/t tongue swelling. L eye continues to have swelling, redness, and no vision. Medicated per JUL. Heparin increased by 2u/kg/hr this shift. IVF increased to 75ml/hr. Remains NPO, DHT in place. Flexiseal patent. NSR on Tele. Hourly rounding and all safety maintained. Lydia Diego 09/21/2024 6:35 AM * Plan of Care - Tim Haas RN - 09/20/2024 6:47 PM EDT Assumed care of patient [id number] as transfer from [place] [id number]. Pt alert and oriented x3, off to time.Speech garbled d/t tongue swelling. L eye continues to have swelling and no vision, ophthalmology consult pending. Pt denies pain. Heparin running at 11.8 units/kg/hr. FEES performed bedside.Pt remains NPO at this time. IV running at 50 mL/hr. BG monitored. DHT placed by IV therapy at bedside. Flexiseal in place. Pt remains on tele with PO2, in ST; all other VSS. Pt oriented to room and unit, call garcia within reach; family at bedside during shift, remains supportive. Safety maintained. Tim Haas 09/20/2024 6:47 PM * Critical Care Communication - Britton oRdriguez PA-C - 09/20/2024 2:23 PM EDT Critical Care Communication This is a communication tool to be used by providers for patients in the ICU. This note is not part of the patient's legal medical record but all documentation can be tracked and audited. Patient Demographics MARIAH MASTERSON 1960 63 y.o. Allergies[1] Reason for admission: AMS, [facility] Hospital course of events: Patient is a 63-year-old male with past medical history of depression, alcohol abuse in remission x15 years, tobacco use ([id number]) who initially presented to [facility] via EMS withaltered mental status, left eye swelling, tongue swelling and severe right ear pain. Patient statessymptoms had started Wednesday evening after getting out of work. 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 Per his f amily he had been sleeping more since that time. Symptoms started with a headache and right ear pain. Patient could not see out of his left eye. Patient's sister came to see him and called 911 because she felt he needed to be seen. He was initially taken to [facility]. At [facility] temp 101, self-limited SVT to 210s, HD stable and placed on oximask to maintain O2 sats. WBC 10.2, platelets 7, fibrinogen > 700, D-dimer 1,650, lactic acid 5.1-->3.6. RBC morphology 3+ microcytosis, 3+ marcelino cells, 3+ schistocytes. UA negative. Fluvid negative. Occult stool positive for blood. Hereceived IVF and albumin. He was treated with Vanco, Zosyn and ceftriaxone. CT chest with evidence of aspiration or endobronchial pneumonia. CT head with abnormal findings in the right mastoid air cells, middle and external ear. Favor otitis media, externa with soft tissue asp status and mastoiditis. MRI brain with 1. Abnormalities of the left orbit including mild enlargement of the extraocular muscles, mild edema throughout the intra and extra conal fat, loss of the normal flow-void of the superior ophthalmic vein, mild enlargement of the left superior ophthalmic vein, minimal left lobe proptosis and left preseptal soft tissue edema. There may be thrombosis of the left superior ophthalmic vein. These findings all highly suggest left cavernous sinus thrombosis. 2. Right mastoid tympanic space effusion and cerumen impaction in the right external auditory canal. 3. Edema and swelling throughout the right temporalis muscle and involving the right > left muscles of mastication of uncertain etiology, direct extension of right mastoiditis is a consideration as is right cavernous sinus thrombosis. 4. High signal within the right sphenoid parietal sinus is also present suggesting thrombosis. MRV brain with normal flow related enhancement in the major cortical and dural venous sinuses. CT A/P with hepatosplenomegaly, distended gallbladder, thickening of the adrenal glands, bilateralperinephric stranding, distended stomach with air-fluid level. ENT at [facility] was consulted and reviewed the case but did not feel the patient required transfer as surgery is not indicated and patient did not have mastoiditis. [facility] ENT recommending treatment with IV antibiotics alone. He was ordered for meropenem, vancomycin, caspofungin. He was ultimately transferred to [facility] for ENT, ophthalmology, infectious diease, neurology consults. Onarrival to he was increasingly hypoxic requiring hi- flow oxygen. CXR with diffuse alveolar process. He was intubated on 09/08 for AHRF. The patient continued on meropenem for GNR bacteremia and then right ear culture came back growing yeast, so ENT switched ear drops to acetic acid from ciprodex. The patient had difficulty toleratingSBT trials due to agitation. He was unable to be weaned off the propofol gtt with the addition of dilaudid gtt, so precedex was started as the propofol needed to be discontinued due to TG >500. Precedex was stopped for ongoing fevers. Due to ongoing agitation, in addition to dilaudid gtt, patient was started on a ketamine infusion with scheduled klonopin and haldol PRN. Patient tolerated SBT well on 09/12 with good mechanics; only barrier to extubation being mental status. Cardiology consulted for ECHO finding of aortic stenosis; plan to follow up outpatient. Heme was consulted for thrombocytopenia and patient was started on IVIG for 5 total doses. Repeat brain MRI with nonocclusive thrombus of bilateral internal jugular veins, right sided otomastoiditis were noted. ENT said no clinicalevidence of mastoiditis so no changes to the plan. CSF sampling was recommended however patients platelets remained below 75 so it was deferred. Sedation was further weaned and patient tolerated well. CTA head and neck without stenosis or intracranial process. Spot diuresed to keep net negative. On 09/15, re-engaged neuro who evaluated MRI from 09/12 noting that they showed ventriculitis with pus in ventricles, likely representing meningitis. Discussed with Dr. Michaud and decided not to pursueLP at this time since already on coverage for bacterial meningitis with meropenem. Developed intermittent twitching of all extremities. Spot EEG negative, LTM ordered which was negative for seizures.Neuro recommended MRV to assess clot burden of bilateral cavernous sinus thrombosis and bilateral internal jugular thrombosis due to ongoing infection. MVA with re demonstration of bilateral non occlusive filling defects in the internal jugular veins. MS started to improve. Patient started tracking, following commands, and nodding yes/no appropriately. Sedation was weaned. He tolerated SBT well with minimal vent settings and good mechanics. He was subsequently extubated to IA. After extubation, patient had garbled speech and significant L sided facial droop, L eye complete visual field defecit. Mild weakness in BL UE/LE. A STAT CTA head and neck was ordered without acute fidnings. A repeat MRI w/wo was ordered per neuro which showed no acute territorial infarction or parenchymal hemmorhage. Persistent diffuse veinous thromboses with minimal improvement in internal jugular veins. Improving inflammatory changes in L orbit and face. Consent was placed for DHT insertion after failing [employer] eval. He was started on On D5w @ 50 for uptrending sodium. Meropenem was stopped. He was deemed medically appropriate to transfer to the medicine floor with tele. Consults: Neurology ENT Ophthalmology ID Procedures: LTM Problem list: Principal Problem: Acute cerebral venous sinus thrombosis (POA: Yes) Resolved Problems: System Review: Neuro: Cavernous sinus thrombosis, bilateral non occlusive thrombus of IJVs, likely meningitis/encephalitis, acute metabolic encephalopathy, Hx depression, tobacco use, ETOH use (in remission 15 years) - Mental status: Alert, PERRLA, eyes open, intermittently answers questions appropriately. Significant L sided facial droop, able to raise eyebrows bilaterally. Weakly follows commands to squeeze fingers equally bilaterally, weakly moving bialteral LE equally. Tremulous with efforts to move extremities bilaterally - CTA head and neck STAT was ordered 09/19 06/25 to L sided facial droop. No acute findings. Repeat MRI brain was ordered and performed overnight as prior imaging per neuro team yielded no clear focal cause of L sided facial droop, read pending - Continue tylenol 975 mg q6h PRN for fevers when can take PO (x0 overnight) - Continue with nicotine patch - active smoker - Holding home risperidone 0.5 BID w/ recent AMS and lethargy - Continue home Fluoxetine 40mg daily when can take PO - s/p LTM, negative for seizures - SW consulted for help with HCR (daughter next of kin but estranged 30 years; mom and sister in chart) - s/p dilaudid gtt, dilaudid PRN, haldol, seroquel - Neuro re-engaged - they believe MRI shows ventriculitis with pus in the ventricles likely representing meningitis. Discussed with ID and no LP needed as already covered on meropenem, low-dose heparin drip recommended for bilateral IJ thrombus on MRV STAT CTA HEAD AND NECK 09/19 IMPRESSION: 1. No intracranial hemorrhage or large [...] apices, favored to reflect resolving infectious/inflammatory process. LTM: Monitoring Day 1: 09/16/2024 - Nonspecific, moderate to severe encephalopathy. Monitoring Day 2: 09/17/2024 - Nonspecific, moderate to severe encephalopathy. MRV 09/16: Redemonstration of nonocclusive filling defects within the proximal internal jugular veins. No other partial or complete occlusion. MRI Brain (09/13): 1. Similar pattern of inflammatory change (better described on CTA head and neck performed same day) about the left orbit with thrombus within the enlarged left superior ophthalmic vein, nonocclusive thrombus in the cavernous sinus bilaterally and venous structures about the middle cranial fossa as noted above (not conspicuous on CTA head and neck), with nonocclusive thrombus bilateral internal jugular veins, etiology is uncertain. 2. Hyperintense signal along the sulci of the frontoparietal and occipital lobes without enhancement. 3. Nonenhancing debris demonstrating diffusion restriction and slight FLAIR hyperintensity within the occipital horns with trace hemosiderin. 4. Right-sided otomastoiditis. 5. Right temporal scalp and temporalis contusion. ENT: Right sided otomastoiditis, left eye swelling (improving), - Ear culture (09/07): + rubi parapsilosis, bordetella species - S/p ciprodex otic drops, hydrocortisone-aceitic acid otic drops - ENT following - reviewed most recent imaging but no clinical evidence of mastoiditis so no changes to plan - Ophthalmology consulted, given no light perception in left eye, poor visual prognosis; no acute interventions recommended to help with left eye vision, no evidence of R eye involvement. Left visionloss maybe likely to thrombosis disrupting blood-flow or involvement of the orbital apex or posterior ischemic optic neuropathy given unremarkable fundus exam, normal IOP () and non- edematous opticnerve Behavioral/Sedation scales CAM-ICU Delirium Present: Negative Dwyer Agitation Sedation Scale (RASS) / Modified RASS: 0-->alert and calm Resp: Acute hypoxic respiratory failure 2/2 ARDS (improved), concern for diffuse alveolar hemorrhage (improved) - SpO2 96-98% on room air - intubated 09/08 - 09/19 - VBG 09/18 7.10/20 - continue solumedrol to 40mg daily - Bronchoscopy on 09/08; findings consistent with DAH; cultures negative to date Vasculitis labs: - Glomerular basement membrane Ab negative - Lupus anticoagulant not detected -CCP Ab negative, dsDNA negative, complement C3 85, C4 10 (L) - myeloperoxidase Ab, proteinase-3 Ab, ANCA negative - RF pending CV: non- sustained VT (resolved), sinus tachycardia, hypertension (improved), severe aortic stenosis - HR 100s to 110s, SBPs 130s - 150s - HS trop (09/07): 22 - ProBNP: 486 (2219) - EKG (09/15): Sinus tachycardia with PVCs, RBBB, Qtc 494 - holding home metoprolol while NPO, will resume when enteral access obtained - [facility] cardiology consulted for new severe aortic stenosis - signed off until more stable ECHO 09/11/24: Left ventricular systolic function is hyperdynamic. The quantitative EF by 2D Stark biplane is 80%. Right ventricular systolic function is normal. There is likely severe aortic stenosis based on gradients and velocities. The continuity derived aortic valve area is less reliable in the setting of poor spectral signal. The peak velocity is 4.3 m/s and mean gradient is 45.7 mmHg. There is progressive calcific mitral stenosis. There is a mean transmitral gradient of 5 mmHg at a heart rate of 81 bpm. There is no previous study for comparison in our system. GI: Transaminitis (improving), lactic acidosis (resolved) - Diet: NPO, failed [employer] eval, DHT ordered - LFTs: t.bili 1.8 (2.4), d.bili 1.2 (1.6), AST/ALT 41/83 (38/94), Alk phos 58 (59) - Lactic acid (09/07): 1.9 (5.4 at OSH) - 1 bowel movement last 24, holding bowel reg while NPO - CT A/P at OSH with hepatosplenomegaly, distended gallbladder, thickening of the adrenal glands, bilateral perinephric stranding, distended stomach with air- fluid level. Renal: CLINT (resolved), hypernatremia (resolved), hyperkalemia (improved) - BUN/Cr 51/0.9 (50/0.8) - Na 147 (149), will re-check at noon - continue d5w @ 50cc/hr pending noon result - UOP ~1.4L last 24, ~net even last 24, net + 14L since admit Early: no Intake & Output Intake/Output Summary (Last 24 hours) at 09/20/2024 0659 Last data filed at 09/20/2024 0600 Gross per 24 hour Intake 1437.07 ml Output 1425 ml Net 12.07 ml Endo: No active issues - BG 110s - 140s - A1c 5.8 - TSH 0.80 - check FS q4h while NPO - continue NPO SUZE until enteral access obtained - hypoglycemia protocol Heme/Onc: Acute normocytic anemia, Thrombocytopenia with 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 secondary ITP (resolved) - H/H 8.1/25.6 (7.5/23.4) - Plt 269 (254) - DVT ppx: low dose heparin gtt, SCDs - discussed lovenox yesterday, continue heparin gtt pending neuro recs s/p MRI read - Coags (09/08): INR 1.3, aPTT 27, fibrinogen 579, thrombin time 12.2 or >30 with bleeding - Heme Onc following - initial concern for secondary ITP due to acute illness/sepsis s/p 5 doses of IVIG (completed 09/11), high dose steroids, goal plt >20 - RBC morphology at OSH 3+ microcytosis, 3+ marcelino cells, 3+ schistocytes - haptoglobin 137 , LDH 436, reticulocyte 0.4, red blood cell morphology normal Upper extremity doppler 09/12/24: Bilaterally, the duplex ultrasound of the upper extremities demonstrates normal Doppler flow with no thrombus seen on patterson scale/color flow image. Findings are not consistent with the presence of deep vein thrombosis bilaterally. Lower Extremity Doppler 09/08/24: Bilaterally, the duplex ultrasound of the lower extremities demonstrates normal Doppler flow with no thrombus seen in patterson scale. Findings are not consistent with the presence of deep vein thrombosisbilaterally. ID: HEENT infection, likely meningitis/encephalitis - Afebrile, WBC 12.6 (9.9) - UA at OSH positive for nitrites and trace LE no bacteria - fluvid negative - legionella prelim negative - PJP negative - right ear culture (09/07) - yeast and bordetella trematum - blood cx OSH - GNR - blood cultures (09/07): negative - repeat blood cx 09/16: NGTD - bronch cultures (09/08): no growth to date - MRSA swab (09/07) negative - urine strep presumptive positive - LP not needed per Dr. Michaud, already has been on coverage for meningitis/encephalitis - stopped meropenem yesterday per Dr. Michaud, remains afebrile, small white count, monitor off abx Vascular access: PIV IV access Prophylaxis: Heparin gtt Code Status: FULL Issues for follow up: - neuro recs regarding MRI read, may be able to stop heparin gtt - resume home meds when has PO access - needs cards follow up [facility] for severe aortic stenosis - Plan for FEES exam afternoon 09/20, if fails DHT consent obtained - meropenem d/c yesterday, Dr. Michaud following [1] No Known Allergies * Rehab Therapy Consults - Sera Hook CCC-[employer] EXP[employer] - 09/20/2024 1:00 PM EDT Speech Pathology Fiberoptic Endoscopic Evaluation of Swallowing (FEES) Evaluation IMPRESSION & PLAN Oropharyngeal dysphagia; acute Presenting with at least moderate deficits in safety and efficiency Appears there is airway compromise across all consistencies; however, difficult visualization of airway at times given increased secretion burden and pharyngeal residue Guarded prognosis for return to oral diet in upcoming days, though results from MBS will provide a more comprehensive assessment and plan moving forward Can allow ice chips after diligent oral care; continue plans with DHT as pt likely to remain NPO Diet Recommendations: Solid Consistency: NPO Except ice chips Liquid Consistency: Ice Chips Medication Administration: (non-oral) Supervision/Assistance: 1:1 supervision needed Oral Care: q6hr with non-vent oral care kit [employer] Therapy Plan: MBS in upcoming days HISTORY OF PRESENT ILLNESS Pt is a 64 y.o. male with pertinent PMHx of depression alcohol abuse, and tobacco use who presentedto OSH for left eye swelling and R ear pain, transferred to 09/07/2024 for further work-up and management of caverbous sinus thrombrosis. Hospital course c/b ARDS requiring intubation. MRI with susp icion of meningitis/encephalitis. Reason for Consult: FEES Pertinent Results: No updated results PMHx: Past Medical History: Diagnosis Date Depression SUBJECTIVE Pt received upright in bed, in no acute distress, now downgraded to floor level of care. Patient/family therapy goal statement: to eat/drink Preferred Language: Barbadian Pain: No pain reported Cognition: Follows commands Speech & Language: Dysarthria Vocal Quality: No appreciable phonatory insufficiency Current Status Diet: NPO Respiratory Status: Room air Intubation History: earlier this admission x10 days [place] for Feeding: Dependent d/t acute illness Mobility: Reduced d/t acute illness, See PT/OT Notes General Health: Lab Results Component Value Date WBC 12.6 (H) 09/19/2024 Temp Last 24 hrs: Temp Min: 95.6 ??F (35.3 ??C) Max: 100.2 ??F (37.9 ??C) OBJECTIVE Fiberoptic Endoscopic Evaluation of Swallowing (FEES) Patient Positioning: Upright Scope passed through: right nasal passage, For comfort, water soluble lubricant was applied to endoscope Factors Affecting Performance: No difficulties participating in study Anatomy Nasopharynx: No overt findings Oropharynx: Base of tongue: ?bruising on R edge adjacent to posterior wall Hypopharynx: Posterior cricoid: mild edema Larynx: Vocal Fold/Arytenoid Mobility: WFL Subglottis: Bilateral protuberance noted on tracheal simon, immediately posterior to vocal cords Physiology Vocal Cord Mobility: complete bilateral Laryngeal sensation: Difficult to assess given increased secretions/residue that fogged up the scope on numerous occasions Secretions Appearance: thick and white Location/Sensation: valleculae and pyriforms Consistencies Assessed Liquids: Thin Liquids and Mildly Thick Liquids Solids: Puree Method of Administration: spoon, cup, clinician-fed Oral Phase Bolus Preparation/Mastication: Reduced labial seal, Decreased bolus cohesion, Slow oral transit, anterior spillage on L labial corner Oral Transit/Control: Premature spillage into the pharynx Oral Residue: Complete oral clearance with extended time Initiation of Pharyngeal Swallow: onset of swallow at the valleculae Pharyngeal Phase Velopharyngeal Function: complete Base of Tongue Retraction: reduced Pharyngeal Wall Medialization: reduced Epiglottic Tilt: reduced Laryngeal Vestibule Closure: Appears reduced Pharyngoesophageal Segment (PES) Opening: Pharyngo-esophogeal retrograde flow not observed Residue Location: valleculae, lateral channels, and pyriform sinuses Severity Score: 2 = Moderate 8-Point Penetration Aspiration Scale (PAS), (Rosenbeck, 1996) - Appears that pt aspirated across consistencies (thin liquids, mildly thick liquids, puree consistency) given severity of deficits and presence of cough response immediately post-swallow; however difficult visualization. Needs further work-up. Compensatory Strategies Not tested Risk Profile for Adverse Aspiration-Related Events (Clarke et al., 2021) General health: No known general health risk factors Medical conditions: Reduced respiration function Oral health: Poor oral care routine Dependence for ADLs: Dependent on others for oral care, Dependent on others for feeding, and Reduced mobility Iatrogenic concerns: No known iatrogenic risk factors Bolus variables: Aspiration on instrumental swallowing assessment Risk for adverse event from aspiration: Elevated risk ASSESSMENT Overall, pt presents with at least moderate oropharyngeal dysphagia; likely ISO acute illness/deconditioning and neurological changes. Suspected aspiration across all consistencies; however, difficulty view of the airway at times given increased pharyngeal retention and thick secretions warranting further assessment via MBS in the upcoming days. 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 The patient, Provider, and RN verbalized understanding of all information provided. MONICA Darling 09/20/24 * Plan of Care - Mike Hsu MD - 09/20/2024 11:34 AM EDT [facility] Medicine Accept Plan of Care LOS: 13 CODE: FULL CODE Principal Problem: Acute cerebral venous sinus thrombosis (POA: Yes) Resolved Problems: Assessment & Plan Mariah Masterson is a 64 y.o. 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 Considered stable to downgrade to the medical floors on 09/20/2024. 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 Would need to be restarted as soon as p.o. access is established - cut in worker consulted for further assistance with help of healthcare independent sales representative, lucas would be the next of kin but has been estranged from the patient for 30 years. - [facility] cardiology were consulted for further workup of severe aortic stenosis, deferred given patient's unstable status at the time, with recommendation to reconsider when patient is more stable versus outpatient follow-up - Maintain patient on telemetry - Patient's developing tachycardia is possibly in the setting of beta federico withdrawal. Could consider IV dose as needed until p.o. access is established - FOR[employer]IC BALLISTICS EXPERT following, appreciate ongoing recommendations and input. Plan for fees later today - ENT and ophthalmology were consulted, input appreciated - JOE Michaud following, appreciate ongoing recommendations - Continue to monitor fever and WBC curves - Continue to monitor infectious workup that shows no growth to date - Continue heparin drip for therapeutic anticoagulation at this time - Continue D5 infusion at 50 cc/hour for hypernatremia. Anticipate discontinuation when p.o. accessis established - If patient has to stay n.p.o. after fees evaluation later today, would need to have DHT placed. Consent obtained by MICU team - Nutrition following for possible tube feed recommendations if needed, input appreciated VTE Time Out IMPROVE SCORE: 2 (09/07/2024 5:40 PM) Interpretation - High Risk Chemical Prophylaxis heparin (porcine) IV infusion 25,000 units in 500 mL 0.45% NaCl (premix) Intravenous Continuous heparin (porcine) 1000 unit/mL injection 2,800 Units Intravenous Every 6 hours PRN Mechanical Prophylaxis SCDs are ordered - Bilateral (Knee High) Diet: NPO pending FEES later today Tele: Yes Early: No Lines: Peripherals GI ppx: No Dispo: Stable for transfer to medical floor Expected Discharge Date: 09/27/2024 Brief Hospital Course Mr. Mariah Masterson is a 63-year-old male, with past medical history notable for depression, alcoholuse in remission for 15 years, tobacco use disorder, who initially presented to [facility] ED with alteredmental status, left eye swelling, tongue swelling, and severe right ear pain. Patient unfortunatelycould not see from his left eye at the time. On presentation at [facility] ED, he was noted to be febrile,tachycardic with SVT, with workup revealing severe thrombocytopenia at 7, elevated fibrinogen, elevated D-dimer, with lactic acidosis. CT notable for concern for aspiration versus endobronchial pneumonia. CT head showing abnormal findings in the right mastoid air cells, middle and external ears. MRI brain obtained showing left orbital abnormalities including mild enlargement of the extraocular muscles, mild edema throughout the intra and extra conal fat, loss of the normal flow-void of the superior ophthalmic vein, mild enlargement of the left superior ophthalmic vein, minimal left lobe proptosis and left preseptal soft tissue edema, with possible thrombosis of the left superior ophthalmic v ein, all of which suggested cavernous sinus thrombosis, in addition to having a right mastoid spaceeffusion with cerumen impaction in the right external auditory canal MRV brain notable for normal flow related enhancement in the major cortical and dural venous sinuses. CT abdomen/pelvis notable for hepatosplenomegaly, distended gallbladder, with thickening of the adrenal glands, bilateral perinephric stranding. He was evaluated by ENT at [facility] hospital with recommendation for intravenous antibiotics, after which patient was started on meropenem, vancomycin, and caspofungin. He was ultimately transferred to for further evaluation by ENT. Patient was increasingly hypoxic requiring uptrending supplemental oxygenation. He was intubated on 09/08/2024 with acute hypoxic respiratory failure, with chest x-ray showing concern for diffuse alveolar process. While in the intensive care unit, patient continued on meropenem. Infectious workup was only notable for positive right ear culture for yeast, after which eardrops were modified accordingly. ICU course was further complicated by difficulty weaning sedation and ventilation, with eventual success on extubation on 09/18/2024. He was noted to have a systolic murmur, after which TTE was notable for aortic stenosis. Cardiology were consulted, recommending outpatient follow-up. Severe thrombocytopenia was attributed to ITP, after involvement of hematology, for which she received IVIG x 5 with improvement. Imaging evaluation on 09/12/2024 were concerning for ventriculitis with pus in the ventricles, and meningitis. Patient had already been on meropenem for antibiotic coverage, and decision was done not to pursue LP at that time. MRV was obtained to assess clot burden showing bilateral cavernous sinus thrombosis and bilateral internal jugular thrombosis due to the ongoing infection. After extubation, patient continued to have dysphagia, for which she remained NPO. He was noted to have mild weakness involving his extremities as well as left facial droop, for which stat CTA head and neck and CT head were obtained without acute changes. Repeat MRI was obtained showing no acute territorial infarction or parenchymal hemorrhage, but diffuse persistent venous thromboses with minimal improvement in internal jugular veins, but with improving inflammatory changes in the left orbit and face. Antibiotics were discontinued after 10 days of therapy, per ID recommendations. Patient was considered hemodynamically stable for transfer from the intensive care unit on 09/20/2024, per evaluation by the MICU team. Objective Last Vitals Pulse:(!) 106,Resp:(!) 26,BP:(!) 145/70,SpO2:96 %,Weight:88.7 kg (195 lb 8.8 oz) Temp Last 24 hrs: Temp Min: 95.6 ??F (35.3 ??C) Max: 98.5 ??F (36.9 ??C) Last temp: (!) 95.6 ??F (35.3 ??C) (Tympanic) Intake/Output Summary (Last 24 hours) at 09/20/2024 1134 Last data filed at 09/20/2024 1000 Gross per 24 hour Intake 1552.71 ml Output 1825 ml Net -272.29 ml Relevant data reviewed Labs, Notes, Meds, Radiology, and Telemetry Notable labs are: White Blood Cell Count Date Value Ref Range Status 09/19/2024 12.6 (H) 4.0 - 11.0 Thou/uL Final Hemoglobin Date Value Ref Range Status 09/19/2024 8.1 (L) 13.0 - 17.7 g/dL Final Hematocrit Date Value Ref Range Status 09/19/2024 25.6 (L) 39.0 - 54.0 % Final Platelet Count Date Value Ref Range Status 09/19/2024 269 150 - 450 Thou/uL Final Lab Results Component Value Date NA 147 (H) 09/19/2024 K 3.9 09/19/2024 CL 118 (H) 09/19/2024 CO2 22 09/19/2024 CO2 24 09/18/2024 BUN 51 (H) 09/19/2024 CREAT 0.9 09/19/2024 GLUC 137 (H) 09/20/2024 GLUC 138 (H) 09/19/2024 Lab Results Component Value Date CALCIUM 7.5 (L) 09/19/2024 MG 2.6 09/19/2024 PHOS 3.4 09/19/2024 Lab Results Component Value Date AST 41 2024 ALT 83 (H) 2024 ALKPHOS 58 2024 BILITOT 1.8 (H) 2024 BILIDIR 1.2 (H) 2024 ALBUMIN 2.3 (L) 09/17/2024 PROT 7.1 2024 Lab Results Component Value Date PTT 24 (L) 09/16/2024 LABPROT 14.1 (H) 09/16/2024 INR 1.2 09/16/2024 No results found for: COLORUA , CLARITYUA , SPECGRAVUA , PHUA , PROTEINUA , GLUCUA , KETONESUA , BLOODUA , NITRITEUA , LEUKOCYTESUA , BILIUA , UROBILINOGEN Lab Results Component Value Date PROBNP 486 (H) 2024 Imaging Studies MRI Report reviewed CT Scan Report reviewed Mike Hsu MD Internal Medicine, PGY-3 Available on [employer] and [employer] * Plan of Care - Britton Rodriguez PA-C - 09/20/2024 10:42 AM EDT Spoke with Sister Julia regarding current treatment plan. She was notified that Mariah will be transferred to a floor level of care today. All questions answered at this time. Britton Rodriguez PA-C 09/20/2024 10:42 AM * Plan of Care - Livan Rahman MD - 09/19/2024 6:08 PM EDT Plan of care note: Mariah Masterson is a 63 y.o. right-handed male with past medical history of depression (on fluoxetine and risperidone), alcohol abuse (remission x 15 years), smoking (couple packs per week x 25 years)who had symptom onset on 09/02 with headache, lethargy and right ear pain with progressive vision loss in left eye and presented to [facility] on 09/07 as a transfer from [facility] due to altered mental status, right ear pain, left eye/tongue swelling and concern for left cavernous sinus thrombosis. At [place] he he was found to be febrile, tachypneic with AHRF requiring Oxymask, with lactic acidosis, Sepsis, thrombocytopenia, and CT chest showed aspiration versus endobronchial pneumonia, elevated D-dimer, fibrinogen. CT head showed findings concerning for R otitis externa/media with soft tissue abscess and mastoiditis. MRI brain showed enlargement of extraocular muscles on the left, mild edema in the intra/extraconal fat and loss of normal flow void in the superior ophthalmic vein as wellas mild enlargement, left preseptal soft tissue edema overall concerning for thrombosis of the superior cerebral vein. MRV brain showed normal flow related enhancement in the cortical and dural venous sinuses. Images were reviewed with IR and no thrombosis was appreciated. At he was continued on empiric antibiotics with meropenem, vancomycin, caspofungin for GNR bacteremia. Upon ENT evaluation he was found to have right sided otitis externa and media. Ophthalmology evaluation on 09/07 noted chemosis, proptosis and ophthalmoplegia, with left eye VA no light perception, findings concerning for cavernous sinus thrombosis, with possible disrupted blood flow/involvement of orbital apex or posterior ischemic optic neuropathy explaining visual impairment in his left eye. 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 Anticoagulation was deferred. MRI brain w wo contrast was repeated on 09/12 which shows DWI/FLAIR hyperintense fluid in bilateral lateral ventricles as wellas sulcal FLAIR hyperintensity suggestive of meningitis with ventriculitis, L superior ophthalmic vein occlusion, nonocclusive bilateral cavernous sinus thrombosis as well as nonocclusive thrombi in bilateral IJV which are likely in the setting of underlying infection. On 09/15 patient was noted to have RUE twitching lasting ~ 1 minute. On exam noted to have myoclonicjerks in the RUE. Routine EEG which captured these events had no EEG correlate. LTM EEG for 2 days from 09/16-09/17 was negative for seizures. MRV was repeated upon neurology recommendation to determine if anticoagulation would be safe/indicated and redemonstarted nonocclusive filling defect in bilateral IJV and L transverse sinus indicative of nonocclusive venous thrombus in the setting of meningitis. He was initiated low dose heparin drip without bolus on 09/16. Patient's mental status graduallyimproved, and he was noted to be following commands, nodding yes/no appropriately and was extubatedon 09/18 to NC now weaned down to room air. After extubation primary team noted L facial droop and dysarthria, which notably worsened afternoon of 09/19. Patient had been therapeutic on heparin drip anti-Xa 0.36 in the morning, and 0.29 at 1:17 PM. STAT CTA head and neck showed no LVO, acute ischemiaor hemorrhage. On exam he has notable L sided subtle weakness and numbness, R tongue protrusion though this is somewhat confounded by significant swelling and bruising of the R tongue, and notable BUE/BLE action tremor. Exam could indicate medullary injury along with L V1-V3 numbness which can be explained by cavernous sinus thrombus, though this is not entirely explained by his imaging. Meningitis with ventriculitis Superior ophthalmic vein thrombosis Nonocclusive bilateral cavernous sinus thrombosis Nonocclusive IJV thrombus Plan: - MRI brain w wo contrast - Continue low dose heparin drip (anti-Xa 0.3-0.5) - Will follow up again tomorrow, full progress note to follow The Neurology Consult Service will continue to follow this patient. Please contact our team with any additional questions or concerns. Thank you for this consultation and for allowing us to participate in the care of this patient. Discussed with on-call neurology attending: Mike Espino MD EXAMINATION: BP (!) 152/70 Pulse (!) 120 Temp 97.8 ??F (36.6 ??C) (Tympanic) Resp (!) 33 Ht 1.905 m (6' 3 ) Wt 90 kg (198 lb 6.6 oz) SpO2 95% BMI 24.80 kg/m?? General: Well appearing in no distress. Neck is supple. Distal extremities are warm and well perfused. Mood is good and affect appropriate Cognitive status and Language: Alert, oriented to self, month, year, place Able to name and repeat Severe dysarthria Attention and concentration are appropriate Cranial nerves: R pupil 4-2, brisk. L pupil dilated, nonreactive. Extraocular movements are impaired on the left No notable orbicularis oculi or frontalis asymmetry L facial asymmetry at rest, no asymmetry noted on activation Tongue protrudes to the right - though notable R tongue swelling and bruising Facial sensation is decreased to light touch Hearing is intact grossly Shoulder shrug 4/5 and head turn 4/5 bilaterally Motor Function: LUE: 4/5 proximal and distal RUE: 5/5 proximal and distal LLE: 4+/5 proximal and distal RLE: 5/5 proximal and distal Bulk and tone: normal Sensation: Sensation is decreased to light touch on LUE/LLE. Coordination: Action/intention tremor RUE > LUE and BLE Reflexes: 2+ and symmetric in the biceps, brachioradialis, knee, Absent ankle Plantar response is extensor bilaterally. Gait: Deferred. Cosigned by Mike Espino MD at 09/21/2024 12:56 PM EDT Associated attestation - Mike Espino MD - 09/21/2024 12:56 PM EDT I have personally interviewed and examined the patient and reviewed the note written by Livan Rahman MD. I agree with the history, exam, assessment and plan as detailed in the resident/fellow's note with the following additions/exceptions/observations. Physical exam: Agree with resident exam. Of note, patient was fully awake, alert, oriented and conversant. Did have significant dysarthria with the swollen tongue. Additionally the LEFT eye did appear ecchymotic/swollen. It was unreactive to light. And eye movements were limited with limited light p erception out of the left eye. Possible subtle facial asymmetry although tongue/eye swelling impedes evaluation. Agree with rest of exam. Work up: I personally reviewed MRI brain without contrast & MRV and agree with the findings. Specifically, that there is partial filling defect within the internal jugular vein bilaterally. No clear evidence of cavernous sinus thrombosis per imaging. Assessment: - Suspected RIGHT otitis externa/media complicated by mastoiditis & soft tissue abscess & orbital involvement (preseptal edema). - Concerns for non occlusive cavernous sinus thrombosis & internal jugular vein non occlusive filling defects Plan: - Agree with therapeutic anticoagulation -- Reasonable to continue heparin gtt while inpatient -- Consider DOAC vs. VKA for continued anticoagulation as outpatient (defer decision to primary team) -- Overall would consider at least 3-6 months of anticoagulation -- Would recommend repeating MRV at 3 month avery to assess for clot burden to determine whether anticoagulation can be discontinued or should be continued -- Recommend outpatient vascular neurology follow up to assist with decision making Mike Espino MD Neurohospitalist - [facility] [place], [facility] [employer] Operator of Neurology - [facility] [employer] * Plan of Care - Britton Rodriguez PA-C - 09/19/2024 5:52 PM EDT Spoke with mother and daughter at bedside regarding current plan of care and treatment plan. All questions answered at this time. Britton Rodriguez PA-C 09/19/2024 5:53 PM * Plan of Care - Carlotta Harrison RN - 09/19/2024 3:26 PM EDT Problem: Adult Inpatient Plan of Care Goal: Readiness for Transition of Care Outcome: Progressing Case Management Care Plan Note Summary: Per clinical progression rounds with the bedside RN and provider, and ongoing continuing care assessment, patient is not yet clinically stable for transition. Patient extubated 09/18, on RA. Heparin gtt continued. FORENSIC BALLISTICS EXPERT evaluation pending. PT evaluated patient today, [facility] 9. Anticipate STR needs upon discharge. At this time transition plan remains for patient to be discharged to STR at SNF when medically stable. CC will continue to follow for readiness to transition. Recommendation: Anticipate transition to STR at SNF (needs acceptance and insurance auth) when medically stable. Carlotta Harrison 09/19/2024 3:26 PM * Rehab Therapy Consults - Sera Hook CCC-FORENSIC BALLISTICS EXPERT - 09/19/2024 9:45 AM EDT Speech Pathology Clinical Swallow Evaluation & Treatment IMPRESSION & PLAN High concern for oropharyngeal dysphagia; acute ISO prolonged intubation and neurological changes Significant oral dysphagia; anterior spillage of all PO Overt s/sx of airway compromise requiring deep pharyngeal suctioning of limited trials Very high aspiration risk; would benefit from short term alternative nutrition/hydration given suspected lengthy NPO status Will need instrumental assessment prior to diet advancement pending some clinical improvement Motor Speech Reduced movement of lingual, labial, and mandibular surfaces resulting in significant dysarthria, though not formally assessed Diet Recommendations: Solid Consistency: NPO Liquid Consistency: Not safe for liquids Medication Administration: non-oral route Oral Care: q6hr with non-vent oral care kit [employer] BALLISTICS EXPERT Therapy Plan: clinical re-assessment of swallow function to determine candidacy for instrumental assessment (improved oromotor function, PO tolerance), motor speech assessment/intervention HISTORY OF PRESENT ILLNESS Pt is a 64 y.o. male with pertinent PMHx of depression alcohol abuse, and tobacco use who presentedto OSH for left eye swelling and R ear pain, transferred to 09/07/2024 for further work-up and management of caverbous sinus thrombrosis. Hospital course c/b ARDS requiring intubation. MRI with susp icion of meningitis/encephalitis. Reason for Consult: s/p extubation Pertinent Results: MRI 09/12: 1. Similar pattern of inflammatory change (better described on CTA head and neck performed same day) about the left orbit with thrombus within the enlarged left superior ophthalmic vein, nonocclusive thrombus in the cavernous sinus bilaterally and venous structures about the middle cranial fossa as noted above (not conspicuous on CTA head and neck), with nonocclusive thrombus bilateral internal jugular veins, etiology is uncertain. 2. Hyperintense signal along the sulci of the frontoparietal and occipital lobes without enhancement. 3. Nonenhancing debris demonstrating diffusion restriction and slight FLAIR hyperintensity within the occipital horns with trace hemosiderin. 4. Right-sided otomastoiditis. 5. Right temporal scalp and temporalis contusion. Lab Results Component Value Date WBC 9.9 09/19/2024 Temp Last 24 hrs: Temp Min: 96.8 ??F (36 ??C) Max: 101.1 ??F (38.4 ??C) PMHx: Past Medical History: Diagnosis Date Depression Prior Level of Function: Baseline diet: Regular, Thin liquids Speech Therapy History: None SUBJECTIVE Pt received upright in bedside chair, alert and oriented to self and place, in no acute distress. Speech dysarthric, vocal quality mildly dysphonic. Patient/family therapy goal statement: non stated Preferred Language: Barbadian Pain: No pain reported Cognition: A&Ox2 Speech & Language: Significant Dysarthria Vocal Quality: Dysphonic Cranial Nerve/Oral Mech Exam Trigeminal (CN V): Jaw opening is asymmetric, sensation intact to light touch Facial (CN VII): Facial asymmetry with L upper and lower quadrant weakness; eye closed, drooling onL side, reduced oral cavity opening Glossopharyngeal (IX)/Vagus (X): Unable/difficult to assess d/t reduced oral cavity opening Hypoglossal (XII): Tongue protrudes difficult to assess, limited protrusion/ROM, appears to sit in L side of oral cavity Dentition: Edentulous Oral Hygiene: Dry oral mucosa and Dry secretions coating back of palate Secretions: Increased oral secretions Volitional Cough: Subjectively reduced Current Status Diet: NPO Respiratory Status: Room air Intubation History: Intubated 09/08; Extubated 09/18 (10 days) [place] for Feeding: Dependent d/t acute illness Mobility: Reduced, See PT/OT Notes General Health: No acute infectious markers OBJECTIVE Oral care provided prior to PO trials as aspiration precautions/infection control. Clinical Swallow Assessment Liquids Presented: Ice Chips x3 and tsp thin liquid x1 Solids Presented: Not trialed Oral Phase: Reduced labial seal, Decreased bolus cohesion, Anterior spillage on left for most of all PO Pharyngeal Phase: Suspect impairment, Clinical s/s of pharyngeal dysfunction Clinical s/s of Dysphagia/Aspiration: Increased congestion, immediate attempts to cough requiring deep pharyngeal suctioning, attempted to cue pt for strong cough but unsuccessful Esophageal Phase: N/A Dysphagia/Aspiration Risk Stratification Dysphagia/Aspiration-Related Complication Risk: Elevated risk Malnutrition/Dehydration Risk: Elevated risk Chronic Risk Factors: No known risk factors Acute Risk Factors: Prolonged intubation, Reduced mobility, Poor oral hygiene, Dependence for oral care/feeding, Reduced cough strength ASSESSMENT FORENSIC BALLISTICS EXPERT Diagnosis: Clinical s/s of Oropharyngeal Dysphagia Suggested Consults/Interventions: N/A Functional Status: Below baseline function Therapy Frequency: 3-5x/week Rehab Potential: Fair, will monitor progress closely Post Acute FORENSIC BALLISTICS EXPERT Needs: TBD based on clinical progress Goals - Pt will participate in therapeutic PO trials of Ice chips with FORENSIC BALLISTICS EXPERT to determine readiness for FEES Plan of care discussed with patient, Provider, and RN EDUCATION The patient, Provider, and RN were verbally instructed and educated on patient's anatomy/physiologyof deficits, diagnosis/problems, results/recommendations, and treatment plan. The patient, Provider, and RN verbalized understanding of all information provided. MOI DarlingFORENSIC BALLISTICS EXPERT 09/19/24 * Plan of Care - Lucia Herrera, RD - 09/18/2024 3:13 PM EDT [facility] Nutrition Note Visit Type: follow up assessment Reason for Dietitian Visit: at nutrition risk, tube feeding. Reason for Admission: Acute cerebral venous sinus thrombosis Nutrition Diagnosis: Intake: Inadequate protein-energy intake related to acute illness as evidenced by NPO, pending FORENSIC BALLISTICS EXPERT evaluation Diagnosis Status: no improvement/unresolved. Interventions/Recommendations: Food & Nutrient Delivery: Diet per FORENSIC BALLISTICS EXPERT recommendations/provider discretion If unable to resume PO diet, recommend resuming TF of Osmolite 1.5 with goal rate of 65 ml/hr x23 hrs (hold 1 hour prior to movantik adminstration). To provide 2243 kcal, 94 g protein, 1139 ml free water (without flushes). - Add minimum 30 ml water flush every 4 hrs, additional per treatment team prn. - Monitor TF tolerance Trend weight Continue MVI, folic acid, thiamine in the setting of ETOH history Monitor blood glucose and adjust insulin regimen prn Nutrition Education/Counseling: N/A Coordination of Nutrition Care: Collaboration with RN Nutrition Plan for Discharge/Transfer: To be determined. Nutrition Assessment: Patient presented to OSH for concern of left eye swelling, tongue swelling, right ear pain, and decreased visual acuity of left eye. He was ultimately transferred to for ENT, ophthalmology, ID, neuro consults. He was admitted for further management of cavernous sinus thrombosis with course complicated by worsening hypoxia with concern for diffuse alveolar hemorrhage in the setting of ARDS. MRIwith meningitis/encephalitis. Patient extubated this am. Prior to this he was tolerating TF well and received 84% goal TF volume over the last 72hrs. Patient is now NPO, FORENSIC BALLISTICS EXPERT consult pending. Food Insecurity Concerns: Patient unable to answer Weight: Weights (last 5 days) Date/Time Weight Scale 09/18/24 0430 90 kg (198 lb 6.6 oz) bed 09/17/24 0400 90.2 kg (198 lb 13.7 oz) bed 09/14/24 0500 92.9 kg (204 lb 12.9 oz) bed 09/13/24 0431 96.8 kg (213 lb 6.5 oz) bed Nutrition Physical Findings: Physical Appearance: on oxygen therapy (extubated this am) Gastrointestinal: (LBM 09/18) Enteral Access Devices: (extubated this am) Skin: edema, other (see comments) (1+ edema; coccyx/gluteal ulceration/blisters) Wound Documentation Reviewed: yes Labs: Na 145, BUN 55, Ca 7.7, POC gluc 123-201 Diagnostics: reviewed Medications: Folic acid, lactulose, solu-medrol, cerovite, movantik, nystatin, miralax, prosource TF 3oz BID, senna-s, thiamine Estimated Daily Energy and Protein Needs: Energy Needs: 2250 - 2700 Kcals/day (25 - 30 Kcals/kg) based on 90 kg (198 lb 6.6 oz) Protein Needs: 90 - 117 gm, (1.0 - 1.3g/kg) based on 90 kg (198 lb 6.6 oz) Fluids: 2250ml based on AUTO DAMAGE ADJUSTER Method Current Diet: Diet, Tube Feeding, No Tray Continuous; OG Tube; Osmolite 1.5; 20 mL; 65 mL/hr; x23 hrs (hold 1 hour before movantik administration); Water; Every 4 hours; 300; NPO Intake Compared to Estimated Needs: Energy Intake: meeting needs (84% goal TF volume received) x 5 days Protein Intake: meeting needs x 5 days Fluid Intake: other (see comments) (3980 ml per I/Os) Educational Needs Assessment: Assessed patient's learning needs. Barriers to Education: Clinical Condition Monitoring & Evaluation: Goals to be Achieved by Next Assessment: Diet advanced vs nutrition support resumed by next nutrition assessment Monitoring/Evaluation: RD/DTR will monitor and evaluate nutrition plan of care and provide additional interventions and recommendations based on nutrition/clinical status. Sign: Lucia Herrera RD 09/18/2024 3:13 PM * Plan of Care - Daiana Guzman PA-C - 09/18/2024 3:08 PM EDT Family updated at bedside regarding current plan of care. All questions answered at this time. Daiana Guzman PA-C 09/18/2024 3:08 PM * Plan of Care - Susana Gauthier RRT - 09/18/2024 6:07 AM EDT Pt intubated and on mechanical ventilation. Pt was on resting settings throughout shift with no changes made. Suctioning small amount of thin secretions from ETT. Report to be given to oncoming RT for continuation of care. Progress: no change Susana Gauthier 09/18/2024 6:07 AM * Plan of Care - Avery Campos RRT - 09/17/2024 6:41 PM EDT Problem: Mechanical Ventilation Invasive Goal: Effective Communication Outcome: Progressing Goal: Optimal Device Function Outcome: Progressing Goal: Mechanical Ventilation Liberation Outcome: Progressing Problem: Adult Inpatient Plan of Care Goal: Plan of Care Review Outcome: Progressing Flowsheets (Taken 09/17/2024 1839) Outcome Evaluation: SBT today on 40% O2, +6 PEEP, +5 PSV for approximately 5 hours. SBT tolerated well, returned to PC-AC mode this afternoon since there were no plans for extubation today. Plan to rest overnight on PC-AC mode with goal of SBT again tomorrow AM. Avery Campos 09/17/2024 6:41 PM * Plan of Care - Daiana Guzman PA-C - 09/17/2024 11:15 AM EDT Family updated regarding current plan of care. All questions answered at this time. Daiana Guzman PA-C 09/17/2024 11:15 AM * Plan of Care - Halima Lyons RRT - 09/17/2024 4:13 AM EDT Problem: Adult Inpatient Plan of Care Goal: Plan of Care Review Outcome: Not Progressing Flowsheets (Taken 09/17/2024 0410) Plan of Care Reviewed With: other (see comments) Progress: no change Outcome Evaluation: Pt is currently on PC-AC mode overnight at this time. No acute resp distress noted at this time, pt is not following commands. Pt is currently on EEG. * Plan of Care - Sreedhar Hernandez RRT - 09/16/2024 4:09 PM EDTSummary: 09/16/24 Pt on resting settings Mri of the brain done today. ? Plan based on when results come back on MRI Sreedhar Hernandez 09/16/2024 4:09 PM * Plan of Care - Livan Rahman MD - 09/16/2024 3:04 PM EDT Assessment: Mariah Masterson is a 63 y.o. right-handed male with past medical history of depression (on fluoxetine and risperidone), alcohol abuse (remission x 15 years), smoking (couple packs per week x 25 years)who had symptom onset on 09/02 with headache, lethargy and right ear pain with progressive vision loss in left eye and presented to [facility] on 09/07 as a transfer from [facility] due to altered mental status, right ear pain, left eye/tongue swelling and concern for left cavernous sinus thrombosis. At [place] he he was found to be febrile, tachypneic with AHRF requiring Oxymask, with lactic acidosis, Sepsis, thrombocytopenia, and CT chest showed aspiration versus endobronchial pneumonia, elevated D-dimer, fibrinogen. CT head showed findings concerning for R otitis externa/media with soft tissue abscess and mastoiditis. MRI brain showed no enlargement of extraocular muscles on the left, mildedema in the intra/extraconal fat and loss of normal flow void in the superior ophthalmic vein as well as mild enlargement, left preseptal soft tissue edema overall concerning for thrombosis of the superior cerebral vein. MRV brain showed normal flow related enhancement in the cortical and dural venous sinuses. Images were reviewed with IR and no thrombosis was appreciated. At he was continued on empiric antibiotics with meropenem, vancomycin, caspofungin for GNR bacteremia. Upon ENT evaluation he was found to have right sided otitis externa and media. Ophthalmology evaluation on 09/07 noted chemosis, proptosis and ophthalmoplegia, with left eye VA no light perception, findings concerning for cavernous sinus thrombosis, with possible disrupted blood flow/involvement of orbital apex or posterior ischemic optic neuropathy explaining visual impairment in his left eye. 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 Anticoagulation was deferred. MRI brain w wo contrast was repeated on 09/12 which shows DWI/FLAIR hyperintense fluid in bilateral lateral ventricles as wellas sulcal FLAIR hyperintensity suggestive of meningitis, L superior ophthalmic vein occlusion, nonocclusive bilateral cavernous sinus thrombosis as well as nonocclusive thrombi in bilateral IJV whichare likely in the setting of underlying infection. On the morning of 09/15 patient was noted to have RUE twitching lasting ~ 1 minute. On exam noted tohave myoclonic jerks in the RUE. Routine EEG which captured these events had no EEG correlate. Primary team concerned for recurrent fever and need for LP. Defer requirement of LP to ID who feel this is not necessary while covered on meropenem. Recommend repeating MRV brain w wo contrast for cavernous sinus thrombosis and bilateral IJV thrombosis to determine if anticoagulation would be safe/indicated. Thrombocytopenia has improved to 190K. MRV reviewed, redemonstration of nonocclusive filling defect in bilateral IJV and L transverse sinus likely indicative of nonocclusive venous thrombus in the setting of meningitis. Anticoagulation would not change functional outcome, but given increased risk of raised ICP with meningitis as well asthrombus propagation, can initiate low dose heparin drip without bolus if cleared from hematology. Acknowledge that prognosis is felt to be guarded by teams. Meningitis with ventriculitis Nonocclusive IJV thrombus Plan: - Low dose heparin drip without bolus if cleared by hematology - If LTM EEG does not show seizures and no EEG correlate with movements, can DC LTM 24 hours after initiation Discussed with on-call neurology attending: MD Livan Warren MBBS PGY2 Neurology [employer] preferred 09/16/2024 3:04 PM * Plan of Care - Daiana Guzman PA-C - 09/16/2024 10:26 AM EDT Family updated via phone regarding current plan of care. All questions answered at this time. Daiana Guzman PA-C 09/16/2024 10:26 AM * Plan of Care - Ritu Hernadez RRT - 09/16/2024 5:00 AM EDT Problem: Mechanical Ventilation Invasive Goal: Effective Communication Outcome: Progressing Problem: Mechanical Ventilation Invasive Goal: Optimal Device Function Outcome: Progressing Problem: Mechanical Ventilation Invasive Goal: Mechanical Ventilation Liberation Outcome: Progressing Problem: Mechanical Ventilation Invasive Goal: Absence of Device-Related Skin and Tissue Injury Outcome: Progressing Problem: Mechanical Ventilation Invasive Goal: Absence of Ventilator-Induced Lung Injury Outcome: Progressing Problem: Adult Inpatient Plan of Care Goal: Plan of Care Review Outcome: Progressing Patient received on PC-AC. No respiratory distress or acute desaturation observed. Plan: MRI and continue spontaneous breathing trials as tolerated. Ritu Hernadez 09/16/2024 5:00 AM * Plan of Care - Sreedhar Hernandez RRT - 2024 3:57 PM EDTSummary: Care Plan 09/15/24 MS still altered switched to resting settings MRI pending.. On cpap minimals michelle well. Sreedhar Hernandez 2024 3:57 PM * Plan of Care - Tami Byers RN - 2024 2:37 PM EDT Case Management Care Plan Note Summary: Per clinical progression rounds with the bedside RN and provider, and ongoing continuing care assessment, patient is not yet clinically stable for transition. Patient remains intubated in ICU level of care. Plan for family meeting. Per clinical record, patient's prognosis remains guarded. At this time transition plan remains for patient to be discharged when medically stable. CC will continue to follow for readiness to transition. Recommendation: Anticipate transition to inpatient rehab when medically stable. SNF referrals pending. Problem: Adult Inpatient Plan of Care Goal: Readiness for Transition of Care Outcome: Progressing Tami Byers 2024 2:37 PM * Plan of Care - Shira Bonilla PA-C - 2024 1:30 PM EDT Sister Julia and mother Carmina updated regarding current plan of care at bedside. Discussed current mental status, meningitis, pending MRV and LTM, and guarded prognosis at this time. Offered to set up a family meeting which they gratefully accepted. Will coordinate with following teams to set up meeting for this week. All questions answered to the best of my ability at this time. Shira Bonilla PA-C 2024 1:30 PM * Plan of Care - Elzbieta Lazo, ESAU - 2024 5:44 AM EDT Problem: Adult Inpatient Plan of Care Goal: Plan of Care Review Flowsheets (Taken 2024 0543) Outcome Evaluation: Pt remains intubated on CPAP/PS tolerating well, no vent changes made this shift. Plan of care ongoing. Elzbieat Lazo 2024 5:44 AM * Plan of Care - Sreedhar Hernandez RRT - 09/14/2024 4:46 PM EDTSummary: Care Plan 09/14/24 Pt on spont, minimals michelle well keeping ett in sec to alt MS. Sreedhar Hernandez 09/14/2024 4:46 PM * Plan of Care - Shira Bonilla PA-C - 09/14/2024 2:19 PM EDT Sister Julia updated regarding current plan of care at mobile number listed in chart. Discussed MRIbrain findings and ongoing poor mental status. All questions answered to the best of my ability at this time. Shira Bonilla PA-C 09/14/2024 2:22 PM * Case Coordination-Payor Communication - Tami Espinoza RN - 09/14/2024 7:29 AM EDT Continued Stay Review Date: 09/14/2024 Clinical Update: Overnight events: - Lokelma x1 for K 5.6 - FWF increased to 200 Q4h, Na 146 Plan: Neuro: AMS, agitation, cavernous sinus thrombosis, Hx depression, tobacco use, ETOH use (in remission 15 years) - Mental status: sedated, not following commands, right eye opens spontaneously, moving all extremities spontaneously - Wean dilaudid gtt to 1 with 1mg PRN Q2h - Maintain ketamine @10mcg/kg/min, no longer on standing benzos - Continue seroquel 50mg BID, 100mg nightly - Continue haldol 5mg q2h PRN (x0 overnight) - Continue tylenol 650mg q6h PRN for fevers (x2 overnight) - Continue with nicotine patch - active smoker - Holding home paroxetine 40mg daily and risperidone 0.5 BID - Neuro consulted for cavernous sinus thrombosis - reviewed with IR, no thrombosis seen on MRV. Continue with IV abx; anticoagulation typically mainstay of treatment but cannot be started secondary to thrombocytopenia - SW consulted for help with HCR (daughter next of kin but estranged 30 years; mom and sister in chart) MRI Brain (09/12): 1. Similar pattern of inflammatory change (better described on CTA head and neck performed same day) about the left orbit with thrombus within the enlarged left superior ophthalmic vein, nonocclusive thrombus in the cavernous sinus bilaterally and venous structures about the middle cranial fossa as noted above (not conspicuous on CTA head and neck), with nonocclusive thrombus bilateral internal jugular veins, etiology is uncertain. 2. Hyperintense signal along the sulci of the frontoparietal and occipital lobes without enhancement. 3. Nonenhancing debris demonstrating diffusion restriction and slight FLAIR hyperintensity within the occipital horns with trace hemosiderin. 4. Right-sided otomastoiditis. 5. Right temporal scalp and temporalis contusion. CTA Head/neck (09/12): 1. Similar appearance of soft tissue changes about the left orbit without definitive filling defect within the left cavernous sinus. 2. No acute intracranial process. 3.Intact anterior and posterior circulations without dissection, major branch occlusion, aneurysm, or vascular malformation. 4. No dissection or high grade stenosis of the carotid or vertebral systems. 5. Scattered groundglass opacities and pneumatoceles imaged lungs with subsegmental foci of consolidation, correlate clinically, infectious versus inflammatory. ENT: Right sided otomastoiditis, left eye swelling (improving), - Ear culture (09/07): + rubi parapsilosis, bordetella species - S/p ciprodex otic drops, hydrocortisone-aceitic acid otic drops - ENT following - reviewed most recent imaging but no clinical evidence of mastoiditis so no changes to plan - Ophthalmology consulted, given no light perception in left eye, poor visual prognosis; no acute interventions recommended to help with left eye vision, no evidence of R eye involvement. Left visionloss maybe likely to thrombosis disrupting blood-flow or involvement of the orbital apex or posterior ischemic optic neuropathy given unremarkable fundus exam, normal IOP () and non- edematous opticnerve Behavioral/Sedation scales CAM-ICU Delirium Present: Positive Dwyer Agitation Sedation Scale (RASS) / Modified RASS: -2-->Wakes slowly, very drowsy/light sedation Resp: Hypoxia with concern for diffuse alveolar hemorrhage in the setting of ARDS (improving) - SpO2 96-99% on below vent settings - VBG (09/09): 7.29/52/58 (previous ABG 7.3/50/26) - Bronchoscopy on 09/08; findings consistent with DAH; cultures negative to date - Intubated on 09/08 - Tolerated PS/CPAP 6/5 40% x13 hrs yesterday, will continue today. Mental status remains barrier to extubation - Continue solu-medrol 40mg q8h; s/p 3 days of pulse dose steroids (1g/day) DAH labs: - Glomerular basement membrane Ab negative - Lupus anticoagulant not detected - RF, CCP Ab, dsDNA, complement C3, C4, ANCA, myeloperoxidase Ab, proteinase-3 Ab pending Current vent settings: Ventilation Mode (Drager V500): PC-AC (09/14 308) Rate Set (breaths/min) (Drager V500): 12 (09/14 308) Pressure Set (cmH2O): 18 (09/14 308) Oxygen Concentration (%) (Drager V500): 40 (09/14 308) PEEP (cmH2O) (Drager V500): 6 (09/14 0309) CT Thorax (09/08): 1. Diffuse interlobular septal thickening, with scattered [...] 3.1 cm, may represent pericardial fluid/pericardial cyst. CXR 09/08: Mild interval improvement in bilateral airspace opacities. CV: non- sustained VT, hypertension, severe aortic stenosis - SBP 120-170s, HR 80-110s - HS trop (09/07): 22 - ProBNP: 2219 (3773), trending - EKG (09/13): Sinus tachycardia with PVCs, RBBB, Qtc 479 - Continue to spot diurese for goal net negative; will give 40mg IV Lasix again today - Continue lopressor 50mg Q12h - [facility] cardiology consulted for new severe aortic stenosis, appreciate recs ECHO 09/11/24: Left ventricular systolic function is hyperdynamic. The quantitative EF by 2D Stark biplane is 80%. Right ventricular systolic function is normal. There is likely severe aortic stenosis based on gradients and velocities. The continuity derived aortic valve area is less reliable in the setting of poor spectral signal. The peak velocity is 4.3 m/s and mean gradient is 45.7 mmHg. There is progressive calcific mitral stenosis. There is a mean transmitral gradient of 5 mmHg at a heart rate of 81 bpm. There is no previous study for comparison in our system. GI: Transaminitis (improving), lactic acidosis (resolved) - Diet: Osmolite 1.5 with FWF 200cc Q4h - LFTs: t.bili 2.4 (4.5), d.bili 1.6 (3.4), AST/ALT 38/94 (109/152), Alk phos 59 (56) - Lactic acid 1.9 (5.4 at OSH) - CT A/P at OSH with hepatosplenomegaly, distended gallbladder, thickening of the adrenal glands, bilateral perinephric stranding, distended stomach with air- fluid level. - x0 BM/24hrs, continue bowel reg w/ movantik Renal: CLINT (improving), hyperkalemia - BUN/Cr 39/0.8 (35/0.8) - Na 146 (144) - FWF increased to 200q4h - K 5.6 (4.7) - 1x dose lokelma given overnight but no stool output so far - UOP 3.5L/24hrs; -349cc/24hrs, +6.7L LOS - Recheck PM lytes Early: yes - remove for voiding trial Early indication: Urinary Retention Intake & Output Intake/Output Summary (Last 24 hours) at 09/14/2024 0711 Last data filed at 09/14/2024 0700 Gross per 24 hour Intake 3155.59 ml Output 3505 ml Net -349.41 ml Endo: No active issues - BG 140s - A1c 5.8 - TSH 0.80 - check FS q4h while on TF - Continue SUZE - hypoglycemia protocol Heme/Onc: Acute normocytic anemia, Thrombocytopenia with c/f secondary ITP - H/H 8.4/25.9 (7.8/24.5) - Plt 97 (68) - Coags (09/08): INR 1.3, aPTT 27, fibrinogen 579, thrombin time 12.2 - Heme Onc following - 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 Findings are not consistent with the presence of deep vein thrombosis bilaterally. Lower Extremity Doppler 09/08/24: Bilaterally, the duplex ultrasound of the lower extremities demonstrates normal Doppler flow with no thrombus seen in patterson scale. Findings are not consistent with the presence of deep vein thrombosisbilaterally. ID: possible PNA, HEENT infection - Tmax 101.8, WBC 10.2 - UA at OSH positive for nitrites and trace LE no bacteria - fluvid negative - legionella prelim negative - PJP negative - right ear culture (09/07) - yeast bordetella species - blood cx OSH - GNR - blood cultures (09/07) no growth to date - bronch cultures (09/08) no growth to date - MRSA swab (09/07) negative - urine strep presumptive positive - continue meropenem (09/08-) - Dr. Michaud following Vascular access: PIV IV access Assessment & Plan per ID Assessment Alcohol use disorder in remission for 15 years Tobacco use disorder with a [id number] history Presenting with altered mental status, left eye swelling, tongue swelling and severe right ear pain MRIs were done and the patient was sent down here It looks like he has a cavernous sinus thrombosis. 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 Bronchoscopy was done 417 culture of his ear is growing yeast and Bordetella trematum He remains on the ventilator Repeat MRI is about the same He is not making any progress Temperature is 101.8 with a white count of 10.2 and a creatinine of 0.8 It is unclear to know where we are going with all of this or what to expect Plan Overall prognosis is very poor We are continuing antibiotics Vitals: Vitals: 09/14/24 0100 09/14/24 0200 09/14/24 0300 09/14/24 0309 BP: (!) 120/56 126/60 126/59 Pulse: 82 83 86 81 Resp: 13 13 13 Temp: (!) 101.1 ??F (38.4 ??C) (!) 100.6 ??F (38.1 ??C) 100.2 ??F (37.9 ??C) SpO2: 97% 98% 97% 97% 09/14/24 0400 09/14/24 0500 09/14/24 0600 09/14/24 0700 BP: (!) 121/58 134/62 123/59 (!) 123/58 Pulse: 91 87 91 86 Resp: 16 17 16 14 Temp: (!) 100.4 ??F (38 ??C) 100.2 ??F (37.9 ??C) (!) 101.7 ??F (38.7 ??C) (!) 101.8 ??F (38.8 ??C) SpO2: 97% 96% 98% 98% Ventilation Mode (Drager V500): PC-AC (09/14 308) Rate Set (breaths/min) (Drager V500): 12 (09/14 308) Pressure Set (cmH2O): 18 (09/14 308) Oxygen Concentration (%) (Drager V500): 40 (09/14 308) PEEP (cmH2O) (Drager V500): 6 (09/14 308) Intake/Output Summary (Last 24 hours) at 09/14/2024729 Last data filed at 09/14/2024699 Gross per 24 hour Intake 3155.59 ml Output 3505 ml Net -349.41 ml Meds/Treatments: Scheduled Meds: chlorhexidine, 15 mL, Mouth/Throat, BID chlorhexidine gluconate, , Topical, Daily heparin (porcine), 5,000 Units, Subcutaneous, Q8H ZO insulin lispro, 3-11 Units, Subcutaneous, Q4H ZO meropenem, 1 g, Intravenous, Q8H methylPREDNISolone sodium succinate, 40 mg, Intravenous, Q8H ZO metoPROLOL TARTRATE, 50 mg, Feeding Tube, Q12H ZO naloxegol, 25 mg, Feeding Tube, Daily before breakfast nicotine, 1 patch, Transdermal, Daily polyethylene glycol, 17 g, Feeding Tube, BID protein supplement feeding tube flush, 3 oz, Feeding Tube, BID QUEtiapine, 100 mg, Feeding Tube, Nightly QUEtiapine, 50 mg, Feeding Tube, BID senna-docusate, 2 tablet, Feeding Tube, BID Continuous Infusions: HYDROmorphone, 2 mg/hr, Last Rate: 2 mg/hr (09/14/24699) ketamine, 10 mcg/kg/min, Last Rate: 10 mcg/kg/min (09/14/24699) PRN Meds: acetaminophen bisacodyl glucose OR glucose OR dextrose OR dextrose OR glucagon haloperidol lactate HYDROmorphone lactulose naloxone Labs/Diagnostics: 09/14/24 00:11 White Blood Cell Count 10.2 Red Blood Cell Count 2.69 (L) Hemoglobin 8.4 (L) Hematocrit 25.9 (L) MCV 96 MCH 31.2 (H) MCHC 32.4 RDW 12.6 Platelet Count 97 (L) Immature Platelet Fraction 15.7 (H) MPV 13.4 (H) Sodium 146 (H) Potassium 5.6 (H) Chloride 110 (H) CO2, POC 32 Anion Gap 4 (L) BUN 39 (H) Creatinine 0.8 Bun / Creat Ratio 49 (H) Glucose 133 (H) Calcium 7.8 (L) Magnesium 2.4 Protein, Total 7.2 Albumin 2.3 (L) Globulin 4.9 (H) A/G Ratio 0.5 (L) eGFR >90 Bilirubin Total 2.4 (H) Bilirubin Direct 1.6 (H) Aspartate Aminotrans (AST/SGOT) 38 Alanine Aminotrans (ALT) 94 (H) Alkaline Phosphatase 59 Phosphorus 3.3 (L): Data is abnormally low (H): Data is abnormally high ECG: Sinus tachycardia with Premature supraventricular complexes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 VSS while on PC-AC PEEP 6 40% FiO2 Education: Role of PT, purpose of evaluation and POC. Subjective Unable to verbalize due to ETT to vent. Past Medical/Surgery History Past Medical History: Diagnosis Date Depression History reviewed. No pertinent surgical history. Flowsheet Data 09/12/24 0910 Physical Therapy Time and Intention PT Visit Type initial evaluation Mode of Treatment physical therapy Patient Effort poor Symptoms Noted During/After Treatment none General Information Patient Profile Reviewed yes Onset of Illness/Injury or Date of Surgery 09/07/24 Patient/Family/Caregiver Comments/Observations Pt nonverbal 2/2 ETT, not nodding yes/no at this timw General Observations of Patient Pt received supine in bed w/ HOB elevated, seen for PT evaluation Pertinent History of Current Functional Problem Pt is a 63yo male admitted to on 09/07 w/ PMH consisting of depression, alcohol use disorder in remission for 15 years, tobacco use disorder presented to [facility] for altered mental status, left eye swelling, tongue swelling and severe rightear pain Existing Precautions/Restrictions fall;other (see comments) (skin) Previous Level of Function/Home Environm Bed Mobility, Premorbid Functional Level independent Transfers, Premorbid Functional Level independent Household Ambulation, Premorbid Functional Level independent Stairs, Premorbid Functional Level independent Community Ambulation, Premorbid Functional Level independent Activity/Exercise/Self-Care Comment Pt unable to provide history, per chart was independent w/ ADLsand functional mobility activities w/out AD Living Environment Current Living Arrangements home;other (see comments) (mobile home) Home Accessibility stairs to enter home People in Home alone Primary Care Provided by self Home Main Entrance Number of Stairs, Main Entrance three Home Use of Assistive/Adaptive Equipment Equipment Currently Used at Home none Pain Additional Documentation Pain Scale: FACES Pre/Post-Treatment (Group) Pain Scale: FACES Pre/Post-Treatment Pre/Posttreatment Pain Comment Pt w/out nonverbal indicators of pain/discomfort Cognition Cognitive Status Impaired Affect/Mental Status (Cognition) flat/blunted affect;low arousal/lethargic;unresponsive Safety Issues, Functional Mobility Impairments Affecting Function (Mobility) balance;cognition;endurance/activity tolerance;strength Activity Tolerance / Endurance Activity Tolerance / Endurance Poor, pt minimally participatory, not grimacing w/ noxious stimulation, VSS while on PC-AC PEEP 6 40% FiO2 Health Promotion Additional Documentation Coping (Group);Plan of Care Review (Group) Coping Observed Emotional State withdrawn Verbalized Emotional State other (see comments) (ZANDRA) Plan of Care Review Plan of Care Reviewed With patient Safety Safety WDL WDL Safety Factors wheels locked;upper side rails raised x 2;ID band on;call light in reach;bed in low position Enhanced Safety Measures bed alarm set Additional Documentation All Alarms (Row) Progressive Mobility Progressive Mobility Level Achieved Bedrest/PROM/Lateral Rotation [facility] Basic Mobility Turning from your back to your side while in a flat bed without using bedrails? 1 Moving from lying on your back to sitting on the side of a flat bed without using bedrails? 1 Moving to and from a bed to a chair (including wheelchair)? 1 Standing up from a chair using your arms? 1 To walk in a hospital room? 1 Climbing 3-5 steps with a railing? 1 [facility] Basic Mobility Score 6 Therapy Assessment/Plan (PT) Patient/Family Therapy Goals Statement (PT) Pt unable to verbalize goals Functional Level at Time of Evaluation (PT) Bedrest/PROM/Lateral Rotation PT Diagnosis (PT) Pt presenting w/ impaired functional mobility Rehab Potential (PT) good Criteria for Skilled Interventions Met (PT) yes;meets criteria Therapy Frequency (PT) 2-3 times/wk PT Recommendations for Staff Ax2 w/ bed mobility/repositioning, prabhakar OOB to chair Predicted Duration of Therapy Intervention (PT) LOS Planned Therapy Interventions (PT) balance training;bed mobility training;gait training;patient/family education;stair training;strengthening;transfer training PT Evaluation Complexity History, PT Evaluation Complexity 3 or more personal factors and/or comorbidities Examination of Body Systems (PT Eval Complexity) total of 3 or more elements Clinical Presentation (PT Evaluation Complexity) stable Clinical Decision Making (PT Evaluation Complexity) moderate complexity Overall Complexity (PT Evaluation Complexity) moderate complexity Therapy Plan Review/Discharge Plan (PT) Therapy Plan Review (PT) evaluation/treatment results reviewed;care plan/treatment goals reviewed;risks/benefits reviewed;current/potential barriers reviewed;patient Physical Therapy Goals Bed Mobility Goal Selection (PT) bed mobility, PT goal 1 Transfer Goal Selection (PT) transfer, PT goal 1 Gait Training Goal Selection (PT) gait training, PT goal 1 Stairs Goal Selection (PT) stairs, PT goal 1 Bed Mobility Goal 1 (PT) Activity/Assistive Device (Bed Mobility Goal 1, PT) bed mobility activities, all [place] Level/Cues Needed (Bed Mobility Goal 1, PT) independent Time Frame (Bed Mobility Goal 1, PT) 2 weeks Transfer Goal 1 (PT) Activity/Assistive Device (Transfer Goal 1, PT) transfers, all [place] Level/Cues Needed (Transfer Goal 1, PT) modified independence Time Frame (Transfer Goal 1, PT) 2 weeks Gait Training Goal 1 (PT) Activity/Assistive Device (Gait Training Goal 1, PT) gait (walking locomotion) [place] Level (Gait Training Goal 1, PT) modified independence Distance (Gait Training Goal 1, PT) 150 Time Frame (Gait Training Goal 1, PT) 2 weeks Stairs Goal 1 (PT) Activity/Assistive Device (Stairs Goal 1, PT) stairs, all skills [place] Level/Cues Needed (Stairs Goal 1, PT) modified independence Number of Stairs (Stairs Goal 1, PT) 3 Time Frame (Stairs Goal 1, PT) 2 weeks Sign: Denis Guzman PT * Plan of Care - Rosie Geiger RRT - 09/12/2024 4:34 AM EDT Problem: Adult Inpatient Plan of Care Goal: Plan of Care Review Flowsheets (Taken 09/12/2024 0433) Plan of Care Reviewed With: patient Progress: no change Outcome Evaluation: pt remaind on PC/AC overnight. pt agitated, thrashing around. traveled to [place] without incident. plan of care is on going Rosie Geiger 09/12/2024 4:34 AM * Provider Documentation Query - Jose Gallegos DO - 09/11/2024 12:52 PM EDT Request for Documentation Clarification [facility] Mariah Masterson ; VISIT [id number] Query Response Sent: 09/11/24 12:52 EDT From: Jose Gallegos DO Query question: Based on the clinical indicators listed below and your professional judgement, can this diagnosis be further specified? Please complete by selecting one of the options below. Provider response: Septic shock Query question: Can the present on admission (POA) status be specified? Provider response: Present on admission Original Query Sent: 09/11/24 10:39 EDT From: Dalton Ramos CDIS To: Jose Gallegos DO By submitting this query, we are seeking further clarification of documentation to accurately reflect all conditions that you monitored, evaluated, treated, or that may have extended the hospitalization or utilization of additional resources for care. Reason for Clarification type of shock Based on the clinical indicators listed below and your professional judgement, can this diagnosis be further specified? Please complete by selecting one of the options below. * Shock (if so, please specify the type of shock if known) * Septic shock * Other explanation of clinical findings (please specify) Can the present on admission (POA) status be specified? * Present on admission * Not present on admission * Clinically undetermined * Unable to determine * Other explanation of clinical findings (please specify) Clinical Information * Signs and Symptoms * Other: 09/08 Dr. Barr: 63 y.o. male with hx of Etoh use admitted on 09/07/2024 for eye swelling (admitted to OS on 09/06/24). Course c/b thrombocytopenia, sepsis, respiratory failure - tx to on 09/07/24. Intubated on 09/08/24. Shock CV: Shock SVT MAP goal 65, wean Levo as able Check Mv02 and CVP if TLC placed Trend Lactate prn TTE w/ bubble pending 09/10 Dr. Gallegos: Shock Currently on VC , PEEP of 6. He was afebrile the past 24 hours. Not currently on any vasopressors, hemodynamics adequate. * Risk Factors * Other: sepsis * Treatment * Other: ICU level of care, pressors * Plan of Care - JESSY Nagy 09/11/2024 12:04 PM EDT Patient's sister Julia called and updated regarding current plan of care. All questions answered atthis time. Marie Chamberlain PA-C 09/11/2024 12:04 PM * Case Coordination-Payor Communication - Vipin Thompson - 09/11/2024 8:57 AM EDT Per State [facility] General Statutes Sec: [id number]: Notification of determination shall be mailed or otherwise communicated within 2 business days of receipt of all information necessary to complete the review. Please fax authorization determination to [phone] * Plan of Care - Rolly Harvey RRT - 09/11/2024 5:17 AM EDT Problem: Adult Inpatient Plan of Care Goal: Plan of Care Review Outcome: Not Progressing Flowsheets (Taken 09/11/2024 0516) Progress: no change Outcome Evaluation: Pt remains on PC-AC. No changes made overnight. Plan for SPN/CPAP in the AM as tolerated. Plan of care ongoing. * Plan of Care - Rolly Harvey RRT - 09/10/2024 5:47 AM EDT Problem: Adult Inpatient Plan of Care Goal: Plan of Care Review Outcome: Not Progressing Progress: no change Flowsheets Outcome Evaluation: Pt remains on PC-AC. PEEP weaned to 6 and tolerating well. No further changes made. Plan for SPN/CPAP in the AM as tolerated. Plan of care ongoing. Taken 09/10/2024 0546 by Rolly Harvey RRT * Plan of Care - Viry Loco RRT - 09/09/2024 6:32 PM EDT Problem: Adult Inpatient Plan of Care Goal: Plan of Care Review Outcome: Progressing Flowsheets (Taken 09/09/2024 1830) Progress: no change Outcome Evaluation: Patient remains on AC at this time. Briefly tolerated SPN- CPAP during shift, and then placed on AC to rest. POC is for patient to rest overnight. Discuss updates to POC w/ HCT. Viry Loco 09/09/2024 6:32 PM * Plan of Care - Carlotta Harrison RN - 09/09/2024 11:13 AM EDT Problem: Adult Inpatient Plan of Care Goal: Readiness for Transition of Care Outcome: Progressing Initial Case Management Care Plan Note Assessment completed with patient's independent sales representative (sister Julia via telephone), medical record review and discussion with clinical team. CC met with the patient using social distancing and face mask. Provided a Case Coordination packet with contact information, CC pamphlet and Your Next Step: Care Outside the Hospital brochure to the patient and patient independent sales representative. Patient is a 63yo male admitted as a transfer from [facility] for higher level of care and Acute Cerebral Venous Sinus Thrombosis. Patient has a past medical history significant for depression, alcohol abuse in remission x15 years, tobacco use (25 pack year) per provider note. Summary: Patient lives alone in a mobile home with a few KAPIL (although he stays with his mother Carmina frequently and assists with any needs she has). Patient is independent with all ADLs/IADLs at baseline and does not use any equipment with ambulation. Patient drives at baseline. Discussed dual plan of home with HC vs STR with sister Julia. Open to both options. Julia reports patient does not have a PCP (had one prior through [facility] 4-5 yrs ago, but they no longer take patient's insurance). Julia called [facility] and had new PCP appt booked for December 26, 2024 (earliest appt) with KRISTA Burns ) for patient. Patient will require signing physician for HC orders if dc's home with HC. List of STR facilities near [place] emailedto Julia at [email or web address] to review for formal referral choices for STR for patient. Anticipated transition plan: home with HC vs STR (KHARI) Caregiver/responsible person supports: Sister, mother PCP: *Has new PCP appt 12/26/24 with KRISTA Burns at [facility]- needs interim signing physician for HC if goes home Anticipated transportation: Family vs Amb Referrals made: None- need choices from Julia for formal referrals Barriers to discharge: Intubated, sedated, IV abx, IV steroids, IV privigen, ID/ ENT/ Neuro clearance, therapy evals when appropriate Carlotta Harrison 09/09/2024 11:13 AM * Plan of Care - Kristal Benz, FABRIC AWNING REPAIRER - 09/09/2024 5:59 AM EDT Pt remains intubated with no issues noted. FiO2 weaned to 40%. RR increased per provider 2/2 abg. Vent Mode: PC-AC Rate set: (S) 20 (per provider 2/2 abg pco2 50) Tidal volume: Insp Pressure: 18 FIO2: (S) 40 (sats 97%) PEEP: 8 Press Support: Airway 09/08/24 0956 endotracheal tube-Airway Tube Secured At (cm): 25 Airway 09/08/24 0956 endotracheal tube-Tube Reference Point: lip Patient Lines/Drains/Airways Status Active Airway Name Placement date Placement time Site Days Airway 09/08/24 0956 endotracheal tube 09/08/24 0956 -- less than 1 Secretions Amount: small Secretions Color: white Secretions Characteristics: thin SpO2 Readings from Last 1 Encounters: 09/09/24 96% Kristal Benz 09/09/2024 5:59 AM * Plan of Care - Darcie Bradley APRN - 09/08/2024 4:03 PM EDT Plan of care note: Mr. Rios is a 63 year old male with a past medical history of pression, alcohol abuse, tobacco use who presented to a outside hospital for altered mental status, right ear pain and left eye/tongue swelling. CT head showed abnormal findings in the right mastoid air cells, middle, and external ear.Favor otitis media, externa with soft tissue abscess and mastoiditis. Brain MRI showed abnormalities of the left orbit including mild enlargement of the extraocular muscles, mild edema throughout theintra and extra conal fat, loss of normal flow-void of the superior ophthalmic vein, mild enlargement of the left superior ophthalmic vein, and left preseptal soft tissue edema, concerning for thrombosis of the left superior ophthalmic vein. MRV brain with normal flow related enhancement in the major cortical and dural venous sinuses. Given concern for left cavernous sinus thrombosis, he was transferred to [facility] and neurology was consulted. Recommendations: - Review neuroimaging with neuroradiology team - Antibiotics per ID - Cannot be safely treated with anticoagulation at this time given his platelet count - STAT CT/CTA if change in neuro exam - Rest of care per primary team - Neurology will continue to following Plan discussed with Dr. Bagley * Plan of Care - Marie Chamberlain PA-C - 09/08/2024 2:44 PM EDT Patient's sister Julia and mother Carmina were updated at the bedside regarding current plan of care.All questions answered at this time. Marie Chamberlain PA-C 09/08/2024 2:44 PM * Case Coordination-Payor Communication - Luzmaria Boyd RN - 09/08/2024 11:27 AM EDT Images from the original note were not included. Admission Note Type: (Inpt/Obsv): Inpatient Date of Admission: 09/07/2024 Admitting Dx: Acute cerebral venous sinus thrombosis [G08] PMH: Past Medical History: Diagnosis Date HPI: 63-year-old male who initially presented to [facility] via EMS with altered mental status, left eye swelling, tongue swelling and severe right ear pain. Patient states symptoms started Wednesday evening after getting out of work. 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 Per his family he has been sleeping more since that time. Symptoms started with a headache and right ear pain. Patient cannot see out of his left eye. Patient's sister came to see him today and called 911 because she felt he needed to be seen. At [facility] temp 101, self- limited SVT to 210s, HD stable and placed on oximask to maintain O2 sats. WBC 10.2, platelets 7, fibrinogen > 700, D-dimer 1,650, lactic acid 5.1-->3.6. RBC morphology 3+ microcytosis, 3+ marcelino cells, 3+ schistocytes. UA negative. Fluvid negative. Occult stool positive for blood. He received IVF and albumin. He was treated with Vanco, Zosyn and ceftriaxone. CT chest with evidence of aspiration or endobronchial pneumonia. CT head with abnormal findings in the right mastoid air cells, middle and external ear. Favor otitis media, externa with soft tissue asp status and mastoiditis. MRI brain all highly suggest left cavernous sinus thrombosis. ENT at [facility] was consulted and reviewed the case but did not feel the patient required transfer as surgery is not indicated and patient did not have mastoiditis. [facility] ENT recommending treatmentwith IV antibiotics alone. He was ordered for meropenem, vancomycin, caspofungin. He was ultimately transferred to [facility] for ENT, ophthalmology, infectious diease, neurology consults. On arrival to he was increasingly hypoxic requiring hi- flow oxygen. CXR with diffuse alveolar process. NIH Stroke Scale Time: 6:45PM on 09/07/2024 Person Administering Scale: Vipin Salazar 1a Level of consciousness: 0=alert; keenly responsive 1b. LOC questions: 0=Performs both tasks correctly 1c. LOC commands: 0=Performs both tasks correctly 2. Best Gaze: 1=partial gaze palsy (due to ophthalmoplegia in left eye) 3. Visual: 3=Bilateral hemianopia (blind including cortical blindness) 4. Facial Palsy: 0=Normal symmetric movement 5a. Motor left arm: 0=No drift, limb holds 90 (or 45) degrees for full 10 seconds 5b. Motor right arm: 0=No drift, limb holds 90 (or 45) degrees for full 10 seconds 6a. motor left le=No drift, limb holds 90 (or 45) degrees for full 10 seconds 6b Motor right le=No drift, limb holds 90 (or 45) degrees for full 10 seconds 7. Limb Ataxia: 0=Absent 8. Sensory: 0=Normal; no sensory loss 9. Best Language: 0=No aphasia, normal 10. Dysarthria: 1=Mild to moderate, patient slurs at least some words and at worst, can be understood with some difficulty 11. Extinction and Inattention: 0=No abnormality Total: 5 Vitals: 09/08/24 0130 99.9 (37.7) 80 32 Abnormal 111/62 94 -- 09/08/24 0100 100 (37.8) 87 28 Abnormal 105/59 95 -- 09/08/24 0035 -- -- -- -- 98 high flow nasal cannula 09/08/24 0000 100.8 (38.2) Abnormal 103 Abnormal 36 Abnormal 124/66 98 high flow nasal cannula 09/07/24 2300 101.8 (38.8) Abnormal 106 Abnormal 30 Abnormal 126/59 96 -- 09/07/24 2236 102 (38.9) Abnormal 117 Abnormal 36 Abnormal 158/72 Abnormal 95 -- 09/07/242205 -- 145 Abnormal 39 Abnormal 172/81 Abnormal 93 -- 09/07/24 2200 -- 146 Abnormal 42 Abnormal 177/97 Abnormal 89 Abnormal -- 09/07/24 2133 -- -- -- -- 94 high flow nasal cannula 09/07/24 2100 -- 111 Abnormal 37 Abnormal 157/72 Abnormal 93 -- 09/07/241999 101.8 (38.8) Abnormal 112 Abnormal 37 Abnormal 154/72 Abnormal 95 high flow nasal cannula 09/07/24 1900 -- 96 -- 157/69 Abnormal 92 -- 09/07/24 1800 -- 91 32 Abnormal 128/59 93 high flow nasal cannula 09/07/24 1758 -- -- -- -- 94 high flow nasal cannula O2 Device: per order at 09/07/24 1758 09/07/24 1715 -- 100 34 Abnormal 157/73 Abnormal 94 -- 09/07/24 1700 -- 91 31 Abnormal 138/65 94 -- 09/07/24 1630 96.9 (36.1) 94 35 Abnormal 146/65 Abnormal 97 non-rebreather mask Labs/Diagnostics: WBC: 16.5 PLATELET: 10 Latest Reference Range & Units 09/07/24 16:36 Chloride 98 - 107 mmol/L 109 (H) CO2, POC 22 - 33 mmol/L 21 (L) Anion Gap 7 - 17 11 BUN 8 - 21 mg/dL 45 (H) Creatinine 0.5 - 1.3 mg/dL 1.0 Bun / Creat Ratio 10.0 - 25.0 Ratio 45 (H) Glucose 65 - 99 mg/dL 92 Calcium 8.7 - 10.5 mg/dL 7.9 (L) Magnesium 1.6 - 2.7 mg/dL 2.3 Protein, Total 6.3 - 8.3 g/dL 5.2 (L) Albumin 3.4 - 4.8 g/dL 2.8 (L) Globulin 1.5 - 3.9 g/dL 2.4 A/G Ratio 1.0 - 3.0 Ratio 1.2 eGFR >59 85 Bilirubin Total 0.2 - 1.0 mg/dL 2.6 (H) Bilirubin Direct 0 - 0.2 mg/dL 1.9 (H) Aspartate Aminotrans (AST/SGOT) 10 - 55 U/L 43 Alanine Aminotrans (ALT) 10 - 55 U/L 18 Alkaline Phosphatase 45 - 128 U/L 97 Phosphorus 2.7 - 4.5 mg/dL 3.3 High Sensitivity Troponin T <23 ng/L 22 Delta (Change) <3 NO PREVIOUS RESULT proBNP, N-terminal <125 pg/mL 5,786 (H) Latest Reference Range & Units 09/07/24 17:03 Prothrombin Time 10.0 - 13.5 seconds 14.0 (H) INR 1.3 aPTT 25 - 36 seconds 30 Fibrinogen 148 - 435 mg/dL 550 (H) ABG: Latest Reference Range & Units 09/07/24 21:51 pH, Arterial 7.35 - 7.45 7.38 pCO2, Arterial 32 - 45 mmHG 35 CO2, Total 22 - 28 mmol/L 22 pO2, Arterial 75 - 95 mmHG 46 (L) O2 Saturation, Arterial 94 - 97 % 80.9 (L) Base Deficiency mmol/L 3.6 Hemogloblin, Total 13.0 - 17.7 g/dL 11.0 (L) Carboxyhemoglobin 0.0 - 2.0 % 1.6 Methemoglobin 0.4 - 1.5 % 0.9 O2 Content, Arterial 17.6 - 24.3 mL/dL 12.2 (L) ECG: Systolic BP mmHg 177 Diastolic BP mmHg 97 Ventricular rate BPM 145 Atrial rate BPM 145 P-R interval ms 120 QRS duration ms 126 Q-T interval ms 332 QTC calculation (Bazett) ms 515 P axis degrees 14 R axis degrees 101 T axis degrees 63 Narrative & Impression Sinus tachycardia with Premature supraventricular complexes Right bundle branch block Abnormal ECG When compared with ECG of 07-Sep-2024 20:33, Premature supraventricular complexes are now Present Orders/Treatment Plan: ENT: Left eye swelling, right ear pain, right quaker swelling - Patient with left eye swollen shut - Pt stated he has hx of chronic right ear pain and will often instill hydrogen peroxide and clean out ear with qtip - ENT consulted, appreciate recs - Ophthalmology consulted, appreciate recs Behavioral/Sedation scales CAM-ICU Delirium Present: Negative Dwyer Agitation Sedation Scale (RASS) / Modified RASS: +1-->restless Resp: Hypoxia with concern for ARDS, cannot r/o DAH - SpO2 94-97% on high flow nasal cannula - desaturates to 70s off O2 - ABG at OSH 7.36/37/68/21 - start solumedrol 40 IV q8h - ordered proBNP Current Ventilator/Noninvasive Ventilator/Oxygen Settings O2 Device: (S) high flow nasal cannula (per order) Oxygen Concentration (%): (S) 80 Flow (L/min) (Oxygen Therapy): (S) 40 CV: SVT (self limited) - HR 90s-100s SBP 130s-150s - run of SVT at OSH into the 210s; converted to sinus rhythm and did not require adenosine - run of SVT to 190s upon arrival to MICU; self limited; converted to NSR - ECG at OSH NSR RBB PACs QTC 503 - ECHO ordered Hemodynamic Parameters GI: Lactic acidosis - Per chart from OSH, report of stool that was dark and tarry 2 days prior - guaiac positive at OSH ED - Lactic acid 5.1 at OSH - Repeat lactate here - tbili 3.1 dbili 2.2 AST/ALT 38/26 alk phos 221 at OSH - CT A/P at OSH with hepatosplenomegaly, distended gallbladder, thickening of the adrenal glands, bilateral perinephric stranding, distended stomach with air- fluid level. Renal: No active issues - received fluids (sepsis bolus) and albumin at OSH - BMP pending Early: no Early indication: N/A Intake & Output Intake/Output Summary (Last 24 hours) at 09/07/20241814 Last data filed at 09/07/20241809 Gross per 24 hour Intake 215 ml Output 200 ml Net 15 ml Endo: No active issues - check FS q4h while NPO - hypoglycemia protocol - check A1C Heme/Onc: Thrombocytopenia - H/H pending - Plt pending - coags ordered - Ddimer at OSH 1650 - Plt 7 at OSH; s/p 2 units plts - Plt goal >20 - at OSH PT 15.1 INR 1.3 fibrinogen >700 ID: Leukocytosis, possible PNA, HEENT infection - tmax 101 at OSH tcurrent 96.9 - WBC at OSH 10.2 - UA at OSH positive for nitrites and trace LE no bacteria - received vanco, zosyn, ceftriaxone at OSH - right ear culture pending at OSH - blood and urine cultures pending at OSH - blood cultures pending here - Dr. Sutherland following - started on vyvox, flagyl, and cefepime per ID Vascular access: PIV IV access NEUROLOGY PLAN: --Antibiotics per ID --Anticoagulation is generally the mainstay of treatment for cavernous sinus thrombosis but cannot likely be considered at this time given this patient's combination of medical co-morbidities. Will review with the ICU team. --Will review with interventional radiology team in the morning to determine if additional imaging will be necessary in the short term. Medications: Ofirmev 1gm IV, Cefepime 2gm IV Q8H, Lasix 20mg IV, Zyvox 600mg IV Q12H, Solu- medrol 80mg IV Q8H, Flagyl 500mg IV Q12H, Morphine 1mg IV, Precedex IV Cont Bed Type: ICU Luzmaria Boyd RN 09/08/2024 11:27 AM * Plan of Care - KRISTA Kenney - 09/08/2024 10:05 AM EDT Patient's mother Carmina Dhillon and sister Julia Garcia were called and updated regarding current plan ofcare. We discussed patient's worsening mental status and respiratory status warranting intubation this morning. While on the phone, Julia expressed patient has no spouse or living children. [facility] was going to do health care proxy paperwork to appoint her as health care decision maker, but she is unsure if this was completed before his transfer. Legal next of kin is his mother Carmina, who is 95 years old. Carmina expressed she would like to continue joint decision making for Mariah withher daughter Julia, however in emergent situations defers medical decision making to Julia Garcia. Confirmed Julia's contact information is correct in the chart, additional home phone number was provided [phone] and added to demographics. Consent for bronchoscopy, blood transfusions, possible central and arterial line were obtained overphone. Discussed ICU team would update this afternoon after bronchoscopy and imaging results to discuss plan of care. All questions were answered at this time. KRISTA Kenney 09/08/2024 10:05 AM * Significant Event - KRISTA Nagy-Ryan - 09/08/2024 9:45 AM EDT Patient with worsening respiratory status this morning. Desatted to below 85% for over 5 minutes onHFNC FiO2 80% 50L with slow recovery. After rounding on the patient with Dr. Barr decision was made to intubate the patient for worsening respiratory status, altered mental status and worse diffusealveolar process on CXR. Anesthesia was paged and intubated the patient using 80 of prop, 50 of maurice and 4 of versed. Patient was successfully intubated. Vent settings: VC-AC RR 16 TV 500 FiO2 90% PEEP 8. Marie Chamberlain PA-C 09/08/24 9:45am * Plan of Care - KRISTA Bedolla - 09/07/2024 8:25 PM EDT Patient's sister, Julia Garcia, called and was updated regarding current plan of care. All questionsanswered at this time. KRISTA Bedolla 09/07/2024 8:25 PM documented in this encounter Plan of Treatment Pending Results Name Type Priority Associated Diagnoses Date /Time CT IAC w/contrast Imaging Routine 025 12:07 PM EDT Fungal Culture, Other Than Blood Microbiology Routine 09/08/2024 1:31 PM EDT Scheduled Orders Name Type Priority Associated Diagnoses Order Schedule GUILLE Archive for reference only MR Imaging Routine 09/07/2024 unt il discontinued, 1 completed GUILLE Archive for reference only MR Imaging Routine 09/07/2024 unt il discontinued, 1 completed GUILLE Archive for reference only CR Imaging Routine 09/07/2024 unt il discontinued, 1 completed GUILLE Archive for reference only CR Imaging Routine 09/07/2024 unt il discontinued, 1 completed GUILLE Archive for reference only CT Imaging Routine 09/07/2024 unt il discontinued, 1 completed GUILLE Archive for reference only CT Imaging Routine 09/07/2024 unt il discontinued, 1 completed GUILLE Archive for reference only CT Imaging Routine 09/07/2024 unt il discontinued, 1 completed GUILLE Archive for reference only CT Imaging Routine 09/07/2024 unt il discontinued, [address] IAC w/contrast Imaging Routine One freda e imaging One time imaging for 1 Occurrences starting 09/08/2024 until 09/08/2024 ECG 12 lead ECG Routine Daily until discontinued starting 09/13/2024, 1 completed Wound care Wound Ostomy Routine Every Third Day until discontinued starting 09/22/2024 Flow Cytometry (Non-Blood) Report Pathology and Cytology Routine Once for 1 Occurrences starting 09/20/2024 until 09/20/2024 Heparin Assay (Anti Xa) Lab Routine *Daily (7AM) unt il discontinued starting 09/22/2024, 1 completed Heparin Assay (Anti Xa) Lab Routine AM Draw for 1 Occurrences starting 09/23/2024 until 09/23/2024 documented as of this encounter Procedures Procedure Name Priority Date/Time Associated Diagnosis [...] ASSAY (ANTI-XA) Routine 09/22/19 5:15 AM EDT COMPLETE BLOOD COUNT, WITHOUT DIFFERENTIAL Routine 09/21/2024 5:15 AM EDT PHOSPHORUS Routine 09/21/2024 5:15 AM EDT MAGNESIUM Routine 09/21/2024 5:15 AM EDT BASIC METABOLIC PANEL Routine 09/21/2024 5:15 AM EDT POCT GLUCOSE, FINGERSTICK (CHARGE) Routine 09/21/2024 4:03 AM EDT HEPARIN ASSAY (ANTI-XA) Routine 09/22/19 12:22 AM EDT COMPLETE BLOOD COUNT, WITHOUT DIFFERENTIAL Routine 09/21/2024 12:22 AM EDT PHOSPHORUS Routine 09/21/2024 12:22 AM EDT MAGNESIUM Routine 09/21/2024 12:22 AM EDT BASIC METABOLIC [...] FINGERSTICK (CHARGE) Routine 09/20/2024 12:56 AM EDT COMPLETE BLOOD COUNT, WITHOUT DIFFERENTIAL Routine 09/19/2024 11:17 PM EDT PHOSPHORUS Routine 09/19/2024 11:17 PM EDT MAGNESIUM Routine 09/19/2024 11:17 PM EDT BASIC METABOLIC PANEL Routine 09/19/2024 11:17 PM EDT HEPARIN ASSAY (ANTI-XA) Routine 09/20/19 9:41 PM EDT POCT GLUCOSE, FINGERSTICK (CHARGE) Routine 09/19/2024 8:32 PM EDT POCT GLUCOSE, FINGERSTICK (CHARGE) Routine 09/19/2024 3:29 PM EDT CTA HEAD AND NECK W/O AND WITH CONTRAST STAT 09/19/2024 1:46 PM EDT HEPARIN ASSAY (ANTI-XA) Routine 09/20/19 1:17 PM EDT SODIUM Routine 09/19/2024 1:17 PM EDT POCT GLUCOSE, FINGERSTICK (CHARGE) Routine 09/19/2024 12:21 PM EDT ECG 12-LEAD Routine 09/19/2024 11:13 AM EDT HEPARIN ASSAY (ANTI-XA) Routine 09/20/19 8:05 AM EDT POCT GLUCOSE, FINGERSTICK (CHARGE) Routine 09/19/2024 7:29 AM EDT POCT GLUCOSE, FINGERSTICK (CHARGE) Routine 09/19/2024 4:09 AM EDT POCT GLUCOSE, FINGERSTICK (CHARGE) Routine 09/19/2024 12:13 AM EDT HEPARIN ASSAY (ANTI-XA) Routine 09/20/19 12:10 AM EDT COMPLETE BLOOD COUNT, WITHOUT DIFFERENTIAL Routine 09/19/2024 12:10 AM EDT PHOSPHORUS Routine 09/19/2024 12:10 AM EDT MAGNESIUM Routine 09/19/2024 12:10 AM EDT BASIC METABOLIC PANEL Routine 09/19/2024 12:10 AM EDT POCT GLUCOSE, FINGERSTICK (CHARGE) [...] ASSAY (ANTI-XA) Routine 09/19/19 12:10 AM EDT COMPLETE BLOOD COUNT, WITHOUT DIFFERENTIAL Routine 09/18/2024 12:10 AM EDT PHOSPHORUS Routine 09/18/2024 12:10 AM EDT MAGNESIUM Routine 09/18/2024 12:10 AM EDT BASIC METABOLIC PANEL Routine 09/18/2024 12:10 AM EDT POCT GLUCOSE, FINGERSTICK (CHARGE) Routine 09/17/2024 11:45 PM EDT HEPARIN ASSAY (ANTI-XA) Routine 09/18/19 9:00 PM EDT POCT GLUCOSE, FINGERSTICK (CHARGE) Routine 09/17/2024 7:47 PM EDT POCT GLUCOSE, FINGERSTICK (CHARGE) Routine 09/17/2024 4:36 PM EDT HEPARIN ASSAY (ANTI-XA) Routine 09/18/19 3:11 PM EDT PHOSPHORUS Routine 09/17/2024 3:11 PM EDT MAGNESIUM Routine 09/17/2024 3:11 PM EDT ALBUMIN Routine 09/17/2024 3:11 PM EDT BASIC METABOLIC PANEL Routine 09/17/2024 3:11 PM EDT POCT GLUCOSE, FINGERSTICK (CHARGE) Routine 09/17/2024 11:42 AM EDT ECG 12-LEAD Routine 09/17/2024 8:49 AM EDT POCT GLUCOSE, FINGERSTICK (CHARGE) Routine 09/17/2024 7:39 AM EDT EEG LONG-TERM MONITORING Routine 09/17/2024 6:43 AM EDT HEPARIN ASSAY (ANTI-XA) Routine 09/18/19 6:33 AM EDT POCT GLUCOSE, FINGERSTICK (CHARGE) Routine 09/17/2024 3:41 AM EDT HEPARIN ASSAY (ANTI-XA) Routine 09/18/19 12:30 AM EDT COMPLETE BLOOD COUNT, WITHOUT DIFFERENTIAL Routine 09/17/2024 12:30 AM EDT PHOSPHORUS Routine 09/17/2024 12:30 AM EDT MAGNESIUM Routine 09/17/2024 12:30 AM EDT BASIC METABOLIC PANEL Routine 09/17/2024 12:30 AM EDT POCT GLUCOSE, FINGERSTICK (CHARGE) Routine 09/16/2024 11:55 PM EDT POCT GLUCOSE, FINGERSTICK (CHARGE) Routine 09/16/2024 7:20 PM EDT EEG LONG-TERM MONITORING Routine 09/16/2024 6:55 PM EDT COMPLETE BLOOD COUNT, WITHOUT DIFFERENTIAL Routine 09/16/2024 6:43 PM EDT COMPLETE BLOOD COUNT, WITH DIFFERENTIAL Routine 09/16/2024 5:07 PM EDT PARTIAL THROMBOPLASTIN TIME (PTT) Routine 09/16/2024 5:07 PM EDT PROTIME-INR Routine 09/16/2024 5:07 PM EDT BLOOD CULTURE (HOSP LAB) Routine 09/16/2024 4:16 PM EDT BLOOD CULTURE (HOSP LAB) Routine 09/16/2024 4:16 PM EDT SODIUM Routine 09/16/2024 4:16 PM EDT POCT GLUCOSE, [...] FINGERSTICK (CHARGE) Routine 2024 11:33 PM EDT COMPLETE BLOOD COUNT, WITHOUT DIFFERENTIAL Routine 2024 11:28 PM EDT PHOSPHORUS Routine 2024 11:28 PM EDT MAGNESIUM Routine 2024 11:28 PM EDT BASIC METABOLIC PANEL Routine 2024 11:28 PM EDT POCT GLUCOSE, [...] N-TERMINAL Routine 2024 12 :26 AM EDT COMPLETE BLOOD COUNT, WITHOUT DIFFERENTIAL Routine 2024 12:26 AM EDT PHOSPHORUS Routine 2024 12:26 AM EDT MAGNESIUM Routine 2024 12:26 AM EDT HEPATIC FUNCTION PANEL Routine 12:26 AM EDT BASIC METABOLIC PANEL Routine [...] FINGERSTICK (CHARGE) Routine 09/14/2024 3:13 AM EDT COMPLETE BLOOD COUNT, WITHOUT DIFFERENTIAL Routine 09/14/2024 12:11 AM EDT PHOSPHORUS Routine 09/14/2024 12:11 AM EDT MAGNESIUM Routine 09/14/2024 12:11 AM EDT HEPATIC FUNCTION PANEL Routine 12:11 AM EDT BASIC METABOLIC PANEL Routine 09/14/2024 12:11 AM EDT POCT GLUCOSE, [...] FINGERSTICK (CHARGE) Routine 09/13/2024 3:30 AM EDT PROBNP, N-TERMINAL Routine 09/13/2024 12 :27 AM EDT COMPLETE BLOOD COUNT, WITHOUT DIFFERENTIAL Routine 09/13/2024 12:27 AM EDT POCT GLUCOSE, FINGERSTICK (CHARGE) Routine 09/13/2024 12:27 AM EDT PHOSPHORUS Routine 09/13/2024 12:27 AM EDT MAGNESIUM Routine 09/13/2024 12:27 AM EDT BASIC METABOLIC PANEL Routine 09/13/2024 12:27 AM EDT MRI BRAIN [...] WITH CONTRAST Routine 09/12/2024 1:43 AM EDT COMPLETE BLOOD COUNT, WITH DIFFERENTIAL Routine 09/12/2024 12:19 AM EDT RETICULOCYTE COUNT Routine 09/12/2024 12 :19 AM EDT PHOSPHORUS Routine 09/12/2024 12:19 AM EDT MAGNESIUM Routine 09/12/2024 12:19 AM EDT LACTATE DEHYDROGENASE (LDH) Routine 09/12/2024 12:19 AM EDT HAPTOGLOBIN Routine 09/12/2024 12:19 AM EDT HEPATIC FUNCTION PANEL Routine 12:19 AM EDT BASIC METABOLIC PANEL Routine 09/12/2024 12:19 AM EDT POCT GLUCOSE, FINGERSTICK (CHARGE) Routine 09/11/2024 11:33 PM EDT POCT GLUCOSE, FINGERSTICK (CHARGE) Routine 09/11/2024 7:44 PM EDT POCT GLUCOSE, FINGERSTICK (CHARGE) Routine 09/11/2024 4:50 PM EDT POCT GLUCOSE, FINGERSTICK (CHARGE) Routine 09/11/2024 3:24 PM EDT POCT GLUCOSE, FINGERSTICK (CHARGE) Routine 09/11/2024 1:53 PM EDT CYCLIC CITRULLINATED PEPTIDE ANTIBODY IGG [id number] Routine 09/11/2024 11:15 AM EDT COMPLEMENT C4 [id number] Routine 09/11/2024 11:15 AM EDT COMPLEMENT C3 [id number] Routine 09/11/2024 11:15 AM EDT PROTEINASE-3 ANTIBODY Routine 09/11/2024 11:15 AM EDT DOUBLE STRAND DNA (DSDNA) ANTIBODY SCREEN, CRITHIDIA, REFLEX TITER Routine 09/11/2024 11:15 AM EDT ANCA SCREEN, REFLEX TITER Routine 09/11/2024 11:15 AM EDT MYELOPEROXIDASE ANTIBODY Routine 09/11/2024 11:15 AM EDT LUPUS ANTICOAGULANT [...] FINGERSTICK (CHARGE) Routine 09/11/2024 3:41 AM EDT COMPLETE BLOOD COUNT, WITHOUT DIFFERENTIAL Routine 09/11/2024 12:10 AM EDT PHOSPHORUS Routine 09/11/2024 12:10 AM EDT MAGNESIUM Routine 09/11/2024 12:10 AM EDT BASIC METABOLIC PANEL Routine 09/11/2024 12:10 AM EDT POCT GLUCOSE, FINGERSTICK (CHARGE) Routine 09/11/2024 12:07 AM EDT POCT GLUCOSE, FINGERSTICK (CHARGE) Routine 09/10/2024 7:45 PM EDT POCT GLUCOSE, FINGERSTICK (CHARGE) Routine 09/10/2024 4:08 PM EDT TRANSFUSE PLATELETS Routine 09/10/2024 4 :05 PM EDT PREPARE PLATELETS Routine 09/10/2024 2:3 6 PM EDT COMPLETE BLOOD COUNT, WITHOUT DIFFERENTIAL Routine 09/10/2024 12:09 PM EDT TRIGLYCERIDES Routine 09/10/2024 12:09 PM EDT PHOSPHORUS Routine 09/10/2024 12:09 PM EDT MAGNESIUM Routine 09/10/2024 12:09 PM EDT BASIC METABOLIC PANEL Routine 09/10/2024 12:09 PM EDT POCT GLUCOSE, FINGERSTICK (CHARGE) Routine 09/10/2024 11:31 AM EDT POCT GLUCOSE, FINGERSTICK (CHARGE) Routine 09/10/2024 7:55 AM EDT POCT GLUCOSE, FINGERSTICK (CHARGE) Routine 09/10/2024 4:07 AM EDT COMPLETE BLOOD COUNT, WITHOUT DIFFERENTIAL Routine 09/09/2024 11:55 PM EDT PHOSPHORUS Routine 09/09/2024 11:55 PM EDT MAGNESIUM Routine 09/09/2024 11:55 PM EDT BASIC METABOLIC PANEL Routine 09/09/2024 11:55 PM EDT POCT GLUCOSE, FINGERSTICK (CHARGE) Routine 09/09/2024 11:31 PM EDT POCT GLUCOSE, FINGERSTICK (CHARGE) Routine 09/09/2024 7:57 PM EDT POCT GLUCOSE, FINGERSTICK (CHARGE) Routine 09/09/2024 4:05 PM EDT COMPLETE BLOOD COUNT, WITHOUT DIFFERENTIAL Routine 09/09/2024 12:22 PM EDT PHOSPHORUS Routine 09/09/2024 12:22 PM EDT MAGNESIUM Routine 09/09/2024 12:22 PM EDT BASIC METABOLIC PANEL Routine 09/09/2024 12:22 PM EDT POCT GLUCOSE, FINGERSTICK (CHARGE) Routine 09/09/2024 11:21 AM EDT POCT GLUCOSE, FINGERSTICK (CHARGE) Routine 09/09/2024 8:02 AM EDT BLOOD GAS WITH COOXIMETRY, VENOUS Routine 09/09/2024 5:49 AM EDT HEMOGLOBIN AND HEMATOCRIT Routine 09/09/2024 5:49 AM EDT POCT GLUCOSE, FINGERSTICK (CHARGE) Routine 09/09/2024 3:29 AM EDT POCT GLUCOSE, FINGERSTICK (CHARGE) Routine 09/08/2024 11:33 PM EDT HEMOGLOBIN A1C WITH ESTIMATED AVERAGE GLUCOSE Routine 09/08/2024 11:09 PM EDT COMPLETE BLOOD COUNT, WITHOUT DIFFERENTIAL Routine 09/08/2024 11:09 PM EDT PHOSPHORUS Routine 09/08/2024 11:09 PM EDT MAGNESIUM Routine 09/08/2024 11:09 PM EDT IRON Routine 09/08/2024 11:09 PM EDT BLOOD GAS, ARTERIAL Routine 09/08/2024 1 1:09 PM EDT FOLATE LEVEL Routine 09/08/2024 11:09 PM EDT VITAMIN B12 Routine 09/08/2024 11:09 PM EDT BASIC METABOLIC PANEL Routine 09/08/2024 11:09 PM EDT POCT GLUCOSE, FINGERSTICK (CHARGE) Routine 09/08/2024 7:59 PM EDT TRANSFUSE PLATELETS Routine 09/08/2024 5 :30 PM EDT HIV 1/2 AG/AB CMIA REFLEX TO CONFIRMATION Routine 09/08/2024 4:09 PM EDT ERYTHROCYTE SEDIMENTATION RATE (ESR) Routine 09/08/2024 4:09 PM EDT C-REACTIVE PROTEIN Routine 09/08/2024 4: 09 PM EDT BLOOD GAS, ARTERIAL Routine 09/08/2024 4 :09 PM EDT FERRITIN Routine 09/08/2024 4:09 PM EDT PREPARE PLATELETS Routine 09/08/2024 3:4 8 PM EDT POCT GLUCOSE, FINGERSTICK (CHARGE) Routine 09/08/2024 3:46 PM EDT LEGIONELLA CULTURE Routine 09/08/2024 1: 31 PM EDT FUNGAL CULTURE (NON-BLOOD) Routine 09/08/2024 1:31 PM EDT RESPIRATORY CULTURE (AEROBIC AND GRAM STAIN) Routine 09/08/2024 1:31 PM EDT PNEUMOCYSTIS JIROVECII (CARINII) DFA [id number] Routine 09/08/2024 1:31 PM EDT (REPORT) DIFFERENTIAL, FLUID DFBF Routine 09/08/2024 1:31 PM EDT CELL COUNT REFLEX DIFFERENTIAL, BODY FLUID Routine 09/08/2024 1:31 PM EDT CYTOLOGY REPORT Routine 09/08/2024 1:27 PM EDT BLOOD GAS, ARTERIAL Routine 09/08/2024 1 2:23 PM EDT LEGIONELLA & STREPTOCOCCUS PNEUMONIAE ANTIGEN, URINE Routine 09/08/2024 12:15 PM EDT PROBNP, N-TERMINAL Routine 09/08/2024 12 :15 PM EDT RED BLOOD CELL MORPHOLOGY Routine 09/08/2024 12:15 PM EDT PATHOLOGY SMEAR REVIEW, WHOLE BLOOD Routine 09/08/2024 12:15 PM EDT PLATELET COUNT Routine 09/08/2024 12:15 PM EDT RETICULOCYTE COUNT Routine 09/08/2024 12 :15 PM EDT TRIGLYCERIDES Routine 09/08/2024 12:15 PM EDT LACTATE DEHYDROGENASE (LDH) Routine 09/08/2024 12:15 PM EDT HAPTOGLOBIN Routine 09/08/2024 12:15 PM EDT HEPATIC FUNCTION PANEL Routine 12:[address] THORAX W/O CONTRAST Routine 12:[address] HEAD W/O CONTRAST Routine 09/08/2024 12:07 PM EDT XR CHEST 1 VIEW-PORTABLE Routine 09/08/2024 10:32 AM EDT XR CHEST 1 VIEW-PORTABLE Routine [...] COOXIMETRY, VENOUS Routine 09/08/2024 2:17 AM EDT PARTIAL THROMBOPLASTIN TIME (PTT) Routine 09/08/2024 1:32 AM EDT THROMBIN TIME Routine 09/08/2024 1:32 AM EDT PROTIME-INR Routine 09/08/2024 1:32 AM EDT FIBRINOGEN LEVEL Routine 09/08/2024 1:32 AM EDT ABO CONFIRMATION Routine 09/08/2024 1:17 AM EDT COMPLETE BLOOD COUNT, WITHOUT DIFFERENTIAL Routine 09/08/2024 1:17 AM EDT PHOSPHORUS Routine 09/08/2024 1:17 AM EDT MAGNESIUM Routine 09/08/2024 1:17 AM EDT BASIC METABOLIC PANEL Routine 09/08/2024 1:17 AM EDT POCT GLUCOSE, [...] ONLY MR Routine 09/07/2024 7:05 PM EDT GUILLE ARCHIVE FOR REFERENCE ONLY CT Routine 09/07/2024 7:05 PM EDT TYPE AND SCREEN Routine 09/07/2024 6:55 PM EDT LACTIC ACID, PLASMA Routine 09/07/2024 6 :24 PM EDT XR CHEST 1 VIEW-PORTABLE Routine 09/07/2024 5:11 PM EDT PARTIAL THROMBOPLASTIN TIME (PTT) Routine 09/07/2024 5:03 PM EDT THROMBIN TIME Routine 09/07/2024 5:03 PM EDT PROTIME-INR Routine 09/07/2024 5:03 PM EDT FIBRINOGEN LEVEL Routine 09/07/2024 5:03 PM EDT BLOOD CULTURE (HOSP LAB) Routine 09/07/2024 5:02 PM EDT BLOOD CULTURE (HOSP LAB) Routine 09/07/2024 4:53 PM EDT HIGH SENSITIVITY TROPONIN T Routine 09/07/2024 4:36 PM EDT PROBNP, N-TERMINAL Routine 09/07/2024 4: 36 PM EDT COMPLETE BLOOD COUNT, WITH DIFFERENTIAL Routine 09/07/2024 4:36 PM EDT NASAL MRSA SCREEN, PCR Routine 4:36 PM EDT TSH, HIGHLY SENSITIVE Routine 09/07/2024 4:36 PM EDT PHOSPHORUS Routine 09/07/2024 4:36 PM EDT MAGNESIUM Routine 09/07/2024 4:36 PM EDT HEPATIC FUNCTION PANEL Routine 4:36 PM EDT BASIC METABOLIC PANEL Routine 09/07/2024 4:36 PM EDT POCT GLUCOSE, FINGERSTICK (CHARGE) Routine 09/07/2024 4:17 PM EDT documented in this encounter Results * (ABNORMAL) POCT Glucose, Fingerstick (09/22/2024 12:14 PM EDT) POC Glucose 132(H) 65 - 99 mg/dL 09/22/2024 12:14 PM EDT Blood specimen / Unknown 09/22/2024 12:14 PM EDT 09/22/2024 12:15 PM EDT us Danny Barr MD POINT OF CARE TEST ORDERABLES Fi nal Result Performing Organization Address [facility] Co fl Phone Number [facility] See Below * (ABNORMAL) POCT Glucose, Fingerstick (09/22/2024 8:53 AM EDT) POC Glucose 101(H) 65 - 99 mg/dL 09/22/2024 8:56 AM EDT Blood specimen / Unknown 09/22/2024 8:53 AM EDT 09/22/2024 8:56 AM EDT us Danny Barr MD POINT OF CARE TEST ORDERABLES Fi nal Result Performing Organization Address City/[facility]/ZIP Co de Phone Number [facility] See Below * (ABNORMAL) Phosphorus (Early AM) (09/22/2024 5:07 AM EDT) Phosphorus 2.4(L) 2.7 - 4.5 mg/dL 09/22/2024 6:21 AM EDT [facility] Blood Blood specimen / Unknown 09/22/2024 5:07 AM EDT 09/22/2024 5:48 AM EDT us Kay L Broess DO LAB BLOOD ORDERABLES Final Result [address] [address], [address] [address] * MAGNESIUM (09/22/2024 5:07 AM EDT) Magnesium 2.5 1.6 - 2.7 mg/dL 09/22/2024 6:21 AM T [facility] Blood Blood specimen / Unknown 09/22/2024 5:07 AM EDT 09/22/2024 5:48 AM EDT Kay Zuniga DO LAB BLOOD ORDERABLES Final Result Performing Organization Address City/[facility]/ZIP Co de Phone Number [address] [address], [place] [address] * (ABNORMAL) BASIC METABOLIC PANEL (09/22/2024 5:07 AM EDT) Glucose 85 65 - 99 mg/dL 09/22/2024 6:21 AM [facility] Comment:Fasting: <100 mg/dL, Non-Fasting: <200 mg/dL (ADA 2005) Blood Urea Nitrogen (BUN) 25(H) 8 - 21 mg/dL 09/22/2024 6:21 AM [facility] Creatinine 0.7 0.5 - 1.3 mg/dL 09/22/2024 6:21 AM [facility] eGFR >90 >59 09/22/2024 6:21 AM [facility] Comment:CKD-EPI (2020) in mL /min/1.73 sq meters. Sodium 146(H) 136 - 145 mmol/L 09/22/2024 6:21 AM [facility] Potassium 4.0 3.4 - 5.3 mmol/L 09/22/2024 6:21 AM [facility] Chloride 119(H) 98 - 107 mmol/L 09/22/2024 6:21 AM [facility] CO2 19(L) 22 - 33 mmol/L 09/22/2024 6:21 AM [facility] Anion Gap 8 7 - 17 09/22/2024 6:21 AM EDT [facility] Calcium 7.4(L) 8.7 - 10.5 mg/dL 09/22/2024 6:21 AM EDT [facility] BUN/Creatinine Ratio 36(H) 10.0 - 25.0 Ratio 09/22/2024 6:21 AM T [facility] Blood Blood specimen / Unknown 09/22/2024 5:07 AM EDT 09/22/2024 5:48 AM EDT us Kay Sutherland Louisthierry DO LAB BLOOD ORDERABLES Final Result Performing Organization Address City/State/[facility] Co de Phone Number [facility] [address] [place] [address], [address] [address] * Heparin Assay (Anti Xa) (09/22/2024 5:07 AM EDT) Anti Xa 0.33 IU/mL 09/22/2024 6:13 AM T [facility] Comment: (NOTE) Heparin Thromboembolic/Standard/Full Dose [...] IV HEPARIN, UNFRACTIONATED 09/21/2024 11:00 PM EDT [facility] Blood Blood specimen / Unknown 09/22/2024 5:07 AM EDT 09/22/2024 5:48 AM EDT us Kay Zuniga DO LAB BLOOD ORDERABLES Final Result Performing Organization Address [facility] [address], [address] [address] * POCT Glucose, Fingerstick (09/22/2024 1:41 AM EDT) Pathologist [facility] [place] POC Glucose 84 65 - 99 mg/dL 09/22/2024 1:46 AM EDT Blood specimen / Unknown 09/22/2024 1:41 AM EDT 09/22/2024 1:45 AM EDT Danny Barr MD POINT OF CARE TEST ORDERABLES Fi nal Result HOSPITAL LAB See Below * (ABNORMAL) Complete Blood Count, WITHOUT Differential (routine) (09/21/2024 9:30 PM EDT) White Blood Cell Count 10.4 4.0 - 11.0 Thou/uL 09/21/2024 10:52 PM EDT [facility] Platelet Count 216 150 - 450 Thou/uL 09/21/2024 10:52 PM T [facility] Hemoglobin 8.2(L) 13.0 - 17.7 g/dL 09/21/2024 10:52 PM EDT [facility] Hematocrit 25.8(L) 39.0 - 54.0 % 09/21/2024 10:52 PM [facility] Red Blood Cell Count 2.44(L) 4.50 - 6.20 Mil/uL 09/[facility]24 [facility] 106(H) 80 - 100 fL 09/21/2024 10:52 [facility] MCH 33.6(H) 27.0 - 31.0 pg 09/21/2024 10:52 [facility] MCHC 31.8 30.0 - 36.0 g/dL 09/21/2024 10:52 PM [facility] RDW 23.2(H) 11.5 - 14.5 % 09/21/2024 10:52 PM [facility] MPV 12.6(H) 7.5 - 12.5 fL 09/21/2024 10:52 PM [facility] nRBC 0.2(H) 0.0 - 0.1 /100 WBC 09/21/2024 10:52 PM T [facility] nRBC, Absolute 0.02 0.00 - 0.02 Thou/uL 09/21/2024 10:52 PM [facility] Blood Blood specimen / Unknown 09/21/2024 9:30 PM EDT 09/21/2024 10:20 PM EDT us Kay Zuniga DO LAB BLOOD ORDERABLES Final Result [facility] [address] [address], [address] [address] * POCT Glucose, Fingerstick (09/21/2024 8:41 PM EDT) POC Glucose 85 65 - 99 mg/dL 09/21/2024 8:42 PM EDT Blood specimen / Unknown 09/21/2024 8:41 PM EDT 09/21/2024 8:42 PM EDT Danny Barr MD POINT OF CARE TEST ORDERABLES Fi nal Result Performing Organization Address City/[facility]/ZIP Co de Phone Number [facility] See Below * (ABNORMAL) POCT Glucose, Fingerstick (09/21/2024 5:09 PM EDT) POC Glucose 103(H) 65 - 99 mg/dL 09/21/2024 5:09 PM EDT Blood specimen / Unknown 09/21/2024 5:09 PM EDT 09/21/2024 5:10 PM EDT Danny Barr MD POINT OF CARE TEST ORDERABLES Fi nal Result Performing Organization Address [facility] Co de Phone Number [facility] See Below * (ABNORMAL) Sodium (09/21/2024 4:27 PM EDT) Sodium 146(H) 136 - 145 mmol/L 09/21/2024 5:19 PM EDT [facility] Blood Blood specimen / Unknown 09/21/2024 4:27 PM EDT 09/21/2024 4:35 PM EDT Kay Zuniga DO LAB BLOOD ORDERABLES Final Result Performing Organization Address [facility] Co de Phone Number [address] [address], [address] [address] * ECG 12 lead (09/21/2024 3:35 PM EDT) Pathologist [facility] [place] Ventricular rate 75 BPM EKG [facility] Atrial rate 75 BPM EKG [facility] P-R interval 116 ms EKG [facility] QRS duration 126 ms EKG [facility] Q-T interval 464 ms EKG [facility] QTC calculation (Bazett) 519 ms EKG [facility] P axis 58 degrees EKG [facility] R axis 67 degrees EKG [facility] T axis 60 degrees EKG [facility] 09/21/2024 3:35 PM EDT Narrative EKG [facility] - 09/21/2024 5:34 PM EDT [...] Webb Ahmed ([id number]) on 09/21/2024 5:34:20 PM us Daiana Guzman PA-C ECG ORDERABLES Final Result [facility] * (ABNORMAL) POCT Glucose, Fingerstick (09/21/2024 12:59 PM EDT) Pathologist [facility] [place] POC Glucose 118(H) 65 - 99 mg/dL 09/21/2024 1:00 PM EDT Blood specimen / Unknown 09/21/2024 12:59 PM EDT 09/21/2024 1:00 PM EDT us Danny Barr MD POINT OF CARE TEST ORDERABLES Fi nal Result HOSPITAL LAB See Below * Heparin Assay (Anti Xa) (09/21/2024 11:17 AM EDT) [facility] Signature Anti Xa 0.36 IU/mL 09/21/2024 12:18 PM EDT [facility] Comment: (NOTE) Heparin Thromboembolic/Standard/Full Dose [...] 1.00 IU/mL Anticoagulant IV HEPARIN, UNFRACTIONATED 09/21/2024 6:53 AM EDT [facility] Blood Blood specimen / Unknown 09/21/2024 11:17 AM EDT 09/21/2024 12:01 PM EDT Kay Zuniga DO LAB BLOOD ORDERABLES Final Result [address] [address], [address] [address] * [place] Modified barium swallow w/speech (09/21/2024 [...] IMG FLUOROSCOPY ORDERABL ES Final Result * (ABNORMAL) POCT Glucose, Fingerstick (09/21/2024 8:41 AM EDT) POC Glucose 126(H) 65 - 99 mg/dL 09/21/2024 8:41 AM EDT Blood specimen / Unknown 09/21/2024 8:41 AM EDT 09/21/2024 8:42 AM EDT us Danny Barr MD POINT OF CARE TEST ORDERABLES Fi nal Result HOSPITAL LAB See Below * Heparin Assay (Anti Xa) (09/21/2024 5:15 AM EDT) Anti Xa 0.36 IU/mL 09/21/2024 6:50 AM EDT [facility] Comment: (NOTE) Heparin Thromboembolic/Standard/Full Dose [...] 1.00 IU/mL Anticoagulant IV HEPARIN, UNFRACTIONATED 09/21/2024 4:11 AM EDT [facility] Blood Blood specimen / Unknown 09/21/2024 5:15 AM EDT 09/21/2024 6:28 AM EDT us Renee Pereyra DO LAB BLOOD ORDERABLES Fin al Result [facility] [address] [place] [address], [address] [address] * Phosphorus (09/21/2024 5:15 AM EDT) Phosphorus 2.8 2.7 - 4.5 mg/dL 09/21/2024 7:17 AM EDT [facility] Blood Blood specimen / Unknown 09/21/2024 5:15 AM EDT 09/21/2024 6:28 AM EDT [facility] A Rheiner DO LAB BLOOD ORDERABLES Fin al Result Performing Organization Address City/[facility] Co de Phone Number [address] [address], [address] [address] * Magnesium (09/21/2024 5:15 AM EDT) Magnesium 2.7 1.6 - 2.7 mg/dL 09/21/2024 7:17 AM EDT [facility] Blood Blood specimen / Unknown 09/21/2024 5:15 AM EDT 09/21/2024 6:28 AM EDT [facility] LAB BLOOD ORDERABLES Fin al Result Performing Organization Address [facility] de Phone Number [address] [address], [address] [address] * (ABNORMAL) Complete Blood Count, WITHOUT Differential (routine) (09/21/2024 5:15 AM EDT) White Blood Cell Count 10.1 4.0 - 11.0 Thou/uL 09/21/2024 6:39 AM [facility] Platelet Count 223 150 - 450 Thou/uL 09/21/2024 6:39 AM [facility] Hemoglobin 8.1(L) 13.0 - 17.7 g/dL 09/21/2024 6:39 AM [facility] Hematocrit 25.1(L) 39.0 - 54.0 % 09/21/2024 6:39 AM [facility] Red Blood Cell Count 2.41(L) 4.50 - 6.20 Mil/uL 09/21/2024 6:39 AM T [facility] MCV 104(H) 80 - 100 fL 09/21/2024 6:39 AM [facility] MCH 33.6(H) 27.0 - 31.0 pg 09/21/2024 6:39 AM [facility] MCHC 32.3 30.0 - 36.0 g/dL 09/21/2024 6:39 AM [facility] RDW 22.9(H) 11.5 - 14.5 % 09/21/2024 6:39 AM [facility] MPV 12.6(H) 7.5 - 12.5 fL 09/21/2024 6:39 AM [facility] nRBC 0.3(H) 0.0 - 0.1 /100 WBC 09/21/2024 6:39 AM [facility] nRBC, Absolute 0.03(H) 0.00 - 0.02 Thou/uL 09/21/2024 6:39 AM [facility] Blood Blood specimen / Unknown 09/21/2024 5:15 AM EDT 09/21/2024 6:28 AM EDT us Renee Pereyra DO LAB BLOOD ORDERABLES Fin al Result Performing Organization Address City/State/[facility] [place] [address], [address] [address] * (ABNORMAL) Basic Metabolic Panel (09/21/2024 5:15 AM EDT) Glucose 102(H) 65 - 99 mg/dL 09/21/2024 7:17 AM [facility] Comment:Fasting: <100 mg/dL, Non-Fasting: <200 mg/dL (ADA 2004) Blood Urea Nitrogen (BUN) 36(H) 8 - 21 mg/dL 09/21/2024 7:17 AM [facility] Creatinine 0.8 0.5 - 1.3 mg/dL 09/21/2024 7:17 AM [facility] eGFR >90 >59 09/21/2024 7:17 AM [facility] Comment:CKD-EPI (2020) in mL /min/1.73 sq meters. Sodium 146(H) 136 - 145 mmol/L 09/21/2024 7:17 AM EDT [facility] Potassium 3.6 3.4 - 5.3 mmol/L 09/21/2024 7:17 AM EDT [facility] Chloride 118(H) 98 - 107 mmol/L 09/21/2024 7:17 AM T [facility] CO2 21(L) 22 - 33 mmol/L 09/21/2024 7:17 AM T [facility] Anion Gap 7 7 - 17 09/21/2024 7:17 AM [facility] Calcium 7.3(L) 8.7 - 10.5 mg/dL 09/21/2024 7:17 AM T [facility] BUN/Creatinine Ratio 45(H) 10.0 - 25.0 Ratio 09/21/2024 7:17 AM T [facility] Blood Blood specimen / Unknown 09/21/2024 5:15 AM EDT 09/21/2024 6:28 AM EDT Renee Pereyra DO LAB BLOOD [place] [address], [address] [address] * (ABNORMAL) POCT Glucose, Fingerstick (09/21/2024 4:03 AM EDT) POC Glucose 124(H) 65 - 99 mg/dL 09/21/2024 4:08 AM EDT Blood specimen / Unknown 09/21/2024 4:03 AM EDT 09/21/2024 4:07 AM EDT Danny Barr MD POINT OF CARE TEST ORDERABLES Fi nal Result HOSPITAL LAB See Below * Phosphorus (09/21/2024 12:22 AM EDT) Phosphorus 3.1 2.7 - 4.5 mg/dL 09/21/2024 1:46 AM EDT [facility] Blood Blood specimen / Unknown 09/21/2024 12:22 AM EDT 09/21/2024 12:59 AM EDT Renee Ananya Pereyra DO LAB BLOOD ORDERABLES Fin al Result Performing Organization Address [facility] [place] [address], [place] [address] * Magnesium (09/21/2024 12:22 AM EDT) Pathologist [facility] [place] Magnesium 2.7 1.6 - 2.7 mg/dL 09/21/2024 1:46 AM EDT [facility] Blood Blood specimen / Unknown 09/21/2024 12:22 AM EDT 09/21/2024 12:59 AM EDT Renee Pereyra DO LAB BLOOD ORDERABLES Fin al Result Performing Organization Address [facility] [place] [address], [place] [address] * Heparin Assay (Anti Xa) (09/21/2024 12:22 AM EDT) Anti Xa 0.26 IU/mL 09/21/2024 1:44 AM EDT [facility] Comment: (NOTE) Heparin Thromboembolic/Standard/Full Dose [...] - 1.00 IU/mL Anticoagulant IV HEPARIN, UNFRACTIONATED 09/20/2024 7:35 PM EDT [facility] Blood Blood specimen / Unknown 09/21/2024 12:22 AM EDT 09/21/2024 12:59 AM EDT us Renee Pereyra DO LAB BLOOD ORDERABLES Fin al Result [facility] [address] [place] [address], [facility] [address] [place] [address] * (ABNORMAL) COMPLETE BLOOD COUNT, WITHOUT DIFFERENTIAL (09/21/2024 12:22 AM EDT) Pathologist [facility] [place] White Blood Cell Count 10.5 4.0 - 11.0 Thou/uL 09/21/2024 2:49 AM [facility] Platelet Count 256 150 - 450 Thou/uL 09/21/2024 2:49 AM [facility] Hemoglobin 8.3(L) 13.0 - 17.7 g/dL 09/21/2024 2:49 AM [facility] Hematocrit 25.4(L) 39.0 - 54.0 % 09/21/2024 2:49 AM [facility] Red Blood Cell Count 2.45(L) 4.50 - 6.20 Mil/uL 09/21/2024 2:49 AM [facility] MCV 104(H) 80 - 100 fL 09/21/2024 2:49 AM [facility] MCH 33.9(H) 27.0 - 31.0 pg 09/21/2024 2:49 AM [facility] MCHC 32.7 30.0 - 36.0 g/dL 09/21/2024 2:49 AM [facility] MPV 12.5 7.5 - 12.5 fL 09/21/2024 2:49 AM [facility] nRBC 0.3(H) 0.0 - 0.1 /100 WBC 09/21/2024 2:49 AM [facility] nRBC, Absolute 0.03(H) 0.00 - 0.02 Thou/uL 09/21/2024 2:49 AM [facility] Blood Blood specimen / Unknown 09/21/2024 12:22 AM EDT 09/21/2024 12:59 AM EDT us Renee Pereyra DO LAB BLOOD ORDERABLES Fin al Result [address] [address], [address] [address] * (ABNORMAL) Basic Metabolic Panel (09/21/2024 12:22 AM EDT) Glucose 102(H) 65 - 99 mg/dL 09/21/2024 1:46 AM [facility] Comment:Fasting: <100 mg/dL, Non-Fasting: <200 mg/dL (ADA 2004) Blood Urea Nitrogen (BUN) 40(H) 8 - 21 mg/dL 09/21/2024 1:46 AM [facility] Creatinine 0.8 0.5 - 1.3 mg/dL 09/21/2024 1:46 AM [facility] eGFR >90 >59 09/21/2024 1:46 AM [facility] Comment:CKD-EPI (2020) in mL /min/1.73 sq meters. Sodium 149(H) 136 - 145 mmol/L 09/21/2024 1:46 AM [facility] Potassium 4.1 3.4 - 5.3 mmol/L 09/21/2024 1:46 AM [facility] Chloride 120(H) 98 - 107 mmol/L 09/21/2024 1:46 AM [facility] CO2 20(L) 22 - 33 mmol/L 09/21/2024 1:46 AM [facility] Anion Gap 9 7 - 17 09/21/2024 1:46 AM [facility] Calcium 7.5(L) 8.7 - 10.5 mg/dL 09/21/2024 1:46 AM [facility] BUN/Creatinine Ratio 50(H) 10.0 - 25.0 Ratio 09/21/2024 1:46 AM [facility] Blood Blood specimen / Unknown 09/21/2024 12:22 AM EDT 09/21/2024 12:59 AM EDT us Renee Pereyra DO LAB BLOOD ORDERABLES Fin al Result [address] [address], [address] [address] * (ABNORMAL) POCT Glucose, Fingerstick (09/20/2024 11:52 PM EDT) POC Glucose 111(H) 65 - 99 mg/dL 09/20/2024 11:53 PM EDT Blood specimen / Unknown 09/20/2024 11:52 PM EDT 09/20/2024 11:53 PM EDT us Danny Barr MD POINT OF CARE TEST ORDERABLES Fi nal Result Performing Organization Address [facility] Co de Phone Number [facility] See Below * (ABNORMAL) POCT Glucose, Fingerstick (09/20/2024 8:18 PM EDT) POC Glucose 111(H) 65 - 99 mg/dL 09/20/2024 8:19 PM EDT Blood specimen / Unknown 09/20/2024 8:18 PM EDT 09/20/2024 8:19 PM EDT us Danny Barr MD POINT OF CARE TEST ORDERABLES Fi nal Result Performing Organization Address [facility] Number [facility] See Below * XR Abdomen 1 view (09/20/2024 4:57 PM EDT) Anatomical Region Laterality Modality Abdomen Computed Radiogr aphy 09/20/2024 3:59 PM EDT Impressions 09/21/2024 4:42 AM EDT Dobbhoff tube subdiaphragmatic with the tip overlying the distal duodenum. Interpreted by: ??Jimbo Licona MD [employer] I personally reviewed the images and the [...] distal duodenum. Interpreted by: Jimbo Licona MD [employer] [facility] I personally reviewed the images and the resident's preliminary report and AGREE with the report as it is now presented ([id number]). us Renee Pereyra DO IMG DIAGNOSTIC IMAGING O RDERABLES Final Result * (ABNORMAL) POCT Glucose, Fingerstick (09/20/2024 4:32 PM EDT) POC Glucose 122(H) 65 - 99 mg/dL 09/20/2024 4:33 PM EDT Blood specimen / Unknown 09/20/2024 4:32 PM EDT 09/20/2024 4:33 PM EDT Danny Barr MD POINT OF CARE TEST ORDERABLES Fi nal Result [facility]OSPITAL LAB See Below * DHT insertion (09/20/2024 3:08 PM EDT) Narrative Pierre Worthy RN - 09/20/2024 3:08 PM EDT Pierre Worthy RN ? 09/20/2024 ??3:10 PM DHT insertion Date/Time: 09/20/2024 3:08 PM Performed by: Pierre Worthy RN Authorized by: Renee Pereyra, ??Consent: Written consent obtained Risks and benefits: risks, benefits and alternatives were discussed Consent given by: power of health care attorney Patient states understanding of procedure being [...] to verify the correct patient, procedure, equipment, youth support worker and site/side marked as required. Local anesthesia used: no Anesthesia: Local anesthesia used: no Patient tolerance: patient tolerated the procedure well with no immediate complications Renee Pereyra DO PROCEDURE/MINOR SURGICAL PERFORMABLES Final Result * Sodium (09/20/2024 12:14 PM EDT) Sodium 145 136 - 145 mmol/L 09/20/2024 1:14 PM EDT [facility] Blood Blood specimen / Unknown 09/20/2024 12:14 PM EDT 09/20/2024 12:45 PM EDT Britton Rodriguez PA-C LAB BLOOD ORDERABLES Final Result Performing Organization Address [facility]/[place] [address], [address] [address] * (ABNORMAL) POCT Glucose, Fingerstick (09/20/2024 11:47 AM EDT) POC Glucose 142(H) 65 - 99 mg/dL 09/20/2024 11:59 AM EDT Blood specimen / Unknown 09/20/2024 11:47 AM EDT 09/20/2024 11:59 AM EDT Danny Barr MD POINT OF CARE TEST ORDERABLES Fi nal Result [facility]OSPITAL LAB See Below * ECG 12 lead (09/20/2024 9:57 AM EDT) Systolic BP 145 mmHg [address] [facility] Diastolic BP 70 mmHg EKG [facility] Ventricular rate 103 BPM EKG [facility] Atrial rate 103 BPM EKG [facility] P-R interval 88 ms EKG [facility] QRS duration 144 ms EKG [facility] Q-T interval 418 ms EKG [facility] QTC calculation (Bazett) 547 ms EKG [facility] P axis 108 degrees EKG [facility] R axis 69 degrees EKG [facility] T axis 73 degrees EKG [facility] 09/20/2024 9:57 AM EDT Narrative EKG [facility] - 09/20/2024 10:05 AM EDT Sinus tachycardia with short NH Right bundle branch block Cannot rule out Inferior infarct , age undetermined Abnormal ECG Confirmed by MD Moffett John ([id number]) on 09/20/2024 10:05:32 AM Procedure Note Cecil Moffett MD - 09/20/2024 Sinus tachycardia with short NH Right bundle branch block Cannot rule out Inferior infarct , age undetermined Abnormal ECG Confirmed by MD Moffett John ([id number]) on 09/20/2024 10:05:32 AM us Danny Barr MD ECG ORDERABLES Final Result Performing Organization Address [facility] de Phone Number [facility] * (ABNORMAL) POCT Glucose, Fingerstick (09/20/2024 8:09 AM EDT) POC Glucose 137(H) 65 - 99 mg/dL 09/20/2024 8:23 AM EDT Blood specimen / Unknown 09/20/2024 8:09 AM EDT 09/20/2024 8:23 AM EDT us Danny Barr MD POINT OF CARE TEST ORDERABLES Fi nal Result Performing Organization Address [facility] Co de Phone Number HOSPITAL LAB See Below * Heparin Assay (Anti Xa) (09/20/2024 6:00 AM EDT) Anti Xa 0.33 IU/mL 09/20/2024 6:40 AM EDT [facility] Comment: (NOTE) Heparin Thromboembolic/Standard/Full Dose [...] - 1.00 IU/mL Anticoagulant IV HEPARIN, UNFRACTIONATED 09/20/2024 3:50 AM EDT [facility] Blood Blood specimen / Unknown 09/20/2024 6:00 AM EDT 09/20/2024 6:10 AM EDT us Mo Dickens MD LAB BLOOD ORDERABLES Final Resul t Performing Organization Address City/[facility]/ZIP Co de Phone Number [address] [address], [address] [address] * (ABNORMAL) POCT Glucose, Fingerstick (09/20/2024 3:55 AM EDT) POC Glucose 140(H) 65 - 99 mg/dL 09/20/2024 3:56 AM EDT Blood specimen / Unknown 09/20/2024 3:55 AM EDT 09/20/2024 3:56 AM EDT Danny Barr MD POINT OF CARE TEST ORDERABLES Fi nal Result Performing Organization Address City/[facility]/ZIP Co de Phone Number HOSPITAL LAB See Below * MRI Brain w w/o contrast (09/20/2024 2:14 AM EDT) Anatomical Region Laterality Modality Head Magnetic Resonan [...] IMG MRI ORDERABLES F inal Result * (ABNORMAL) POCT Glucose, Fingerstick (09/20/2024 12:56 AM EDT) POC Glucose 115(H) 65 - 99 mg/dL 09/20/2024 1:00 AM EDT Blood specimen / Unknown 09/20/2024 12:56 AM EDT 09/20/2024 1:00 AM EDT Danny Barr MD POINT OF CARE TEST ORDERABLES Fi nal Result [facility]OS[facility]ITAL [facility] See Below * Phosphorus (09/19/2024 11:17 PM EDT) Phosphorus 3.4 2.7 - 4.5 mg/dL 09/20/2024 1:46 AM EDT [facility] Blood Blood specimen / Unknown 09/19/2024 11:17 PM EDT 09/20/2024 1:12 AM EDT Britton Rodriguez PA-C LAB BLOOD ORDERABLES Final Result [address] [address], [address] [address] * Magnesium (09/19/2024 11:17 PM EDT) Magnesium 2.6 1.6 - 2.7 mg/dL 09/20/2024 1:46 AM EDT [facility] Blood Blood specimen / Unknown 09/19/2024 11:17 PM EDT 09/20/2024 1:12 AM EDT Britton Rodriguez PA-C LAB BLOOD ORDERABLES Final Result [facility] [address] [place] [address], [facility] [address] [place] [address] * (ABNORMAL) Basic Metabolic Panel (09/19/2024 11:17 PM EDT) Glucose 138(H) 65 - 99 mg/dL 09/20/2024 1:46 AM T [facility] Comment:Fasting: <100 mg/dL, Non-Fasting: <200 mg/dL (ADA 2004) Blood Urea Nitrogen (BUN) 51(H) 8 - 21 mg/dL 09/20/2024 1:46 AM [facility] Creatinine 0.9 0.5 - 1.3 mg/dL 09/20/2024 1:46 AM [facility] eGFR >90 >59 09/20/2024 1:46 AM [facility] Comment:CKD-EPI (2020) in mL /min/1.73 sq meters. Sodium 147(H) 136 - 145 mmol/L 09/20/2024 1:46 AM [facility] Potassium 3.9 3.4 - 5.3 mmol/L 09/20/2024 1:46 AM [facility] Chloride 118(H) 98 - 107 mmol/L 09/20/2024 1:46 AM [facility] CO2 22 22 - 33 mmol/L 09/20/2024 1:46 AM [facility] Anion Gap 7 7 - 17 09/20/2024 1:46 AM [facility] Calcium 7.5(L) 8.7 - 10.5 mg/dL 09/20/2024 1:46 AM [facility] BUN/Creatinine Ratio 57(H) 10.0 - 25.0 Ratio 09/20/2024 1:46 AM [facility] Blood Blood specimen / Unknown 09/19/2024 11:17 PM EDT 09/20/2024 1:12 AM EDT Britton oRdriguez PA-C LAB BLOOD ORDERABLES Final Result [address] [address], [address] [address] * (ABNORMAL) COMPLETE BLOOD COUNT, WITHOUT DIFFERENTIAL (09/19/2024 11:17 PM EDT) White Blood Cell Count 12.6(H) 4.0 - 11.0 Thou/uL 09/20/2024 1:26 AM [facility] Platelet Count 269 150 - 450 Thou/uL 09/20/2024 1:26 AM [facility] Hemoglobin 8.1(L) 13.0 - 17.7 g/dL 09/20/2024 1:26 AM [facility] Hematocrit 25.6(L) 39.0 - 54.0 % 09/20/2024 1:26 AM [facility] Red Blood Cell Count 2.48(L) 4.50 - 6.20 Mil/uL 09/20/2024 1:26 AM [facility] MCV 103(H) 80 - 100 fL 09/20/2024 1:26 AM [facility] MCH 32.7(H) 27.0 - 31.0 pg 09/20/2024 1:26 AM [facility] MCHC 31.6 30.0 - 36.0 g/dL 09/20/2024 1:26 AM [facility] [facility] RDW 20.9(H) 11.5 - 14.5 % 09/20/2024 1:26 AM [facility] MPV 12.3 7.5 - 12.5 fL 09/20/2024 1:26 AM [facility] nRBC 0.3(H) 0.0 - 0.1 /100 WBC 09/20/2024 1:26 AM [facility] nRBC, Absolute 0.04(H) 0.00 - 0.02 Thou/uL 09/20/2024 1:26 AM [facility] Blood Blood specimen / Unknown 09/19/2024 11:17 PM EDT 09/20/2024 1:12 AM EDT us Britton Mariah Rodriguez PA-C LAB BLOOD ORDERABLES Final Result [facility] [address] [place] [address], [facility] [address] [place] [address] * Heparin Assay (Anti Xa) (09/19/2024 9:41 PM EDT) Anti Xa 0.37 IU/mL 09/19/2024 10:31 PM EDT [facility] Comment: (NOTE) Heparin Thromboembolic/Standard/Full Dose [...] - 1.00 IU/mL Anticoagulant IV HEPARIN, UNFRACTIONATED 09/19/2024 9:41 PM EDT [facility] Blood Blood specimen / Unknown 09/19/2024 9:41 PM EDT 09/19/2024 10:15 PM EDT Mo Dickens MD LAB BLOOD ORDERABLES Final Resul t Performing Organization Address [facility]/[place] [address], [place] [address] * (ABNORMAL) POCT Glucose, Fingerstick (09/19/2024 8:32 PM EDT) POC Glucose 112(H) 65 - 99 mg/dL 09/19/2024 8:57 PM EDT Blood specimen / Unknown 09/19/2024 8:32 PM EDT 09/19/2024 8:57 PM EDT Danny Barr MD POINT OF CARE TEST ORDERABLES Fi nal Result HOSPITAL LAB See Below * (ABNORMAL) POCT Glucose, Fingerstick (09/19/2024 3:29 PM EDT) POC Glucose 139(H) 65 - 99 mg/dL 09/19/2024 3:54 PM EDT Blood specimen / Unknown 09/19/2024 3:29 PM EDT 09/19/2024 3:54 PM EDT us Danny Barr MD POINT OF CARE TEST ORDERABLES Fi nal Result HOSPITAL LAB See Below * CTA Head and Neck W/O and With IV Contrast (09/19/2024 1:46 PM EDT) Anatomical Region Laterality Modality CTA Head and [...] infectious/inflammatory process. Interpreted by: ??Jason Lundberg DO [facility] Attending addendum: There is moderate atherosclerotic plaque [...] criteria. The data was processed at the nuclear medical technologist workstation for generation of MIP images. [...] criteria. The data was processed at the nuclear medical technologist workstation for generation of MIP images. [...] infectious/inflammatory process. Interpreted by: Jason Lundberg DO [facility] Attending addendum: There is moderate atherosclerotic plaque [...] CT ORDERABLES Fi nal Result * (ABNORMAL) Sodium (09/19/2024 1:17 PM EDT) Sodium 149(H) 136 - 145 mmol/L 09/19/2024 2:27 PM EDT [facility] Blood Blood specimen / Unknown 09/19/2024 1:17 PM EDT 09/19/2024 1:34 PM EDT Carlitos Treviño PA-C LAB BLOOD ORDERABLES Final Result [address] [address], [address] [address] * Heparin Assay (Anti Xa) (09/19/2024 1:17 PM EDT) [facility] Anti Xa 0.29 IU/mL 09/19/2024 2:09 PM EDT [facility] Comment: (NOTE) Heparin Thromboembolic/Standard/Full Dose [...] - 1.00 IU/mL Anticoagulant IV HEPARIN, UNFRACTIONATED 09/19/2024 1:08 PM EDT [facility] Blood Blood specimen / Unknown 09/19/2024 1:17 PM EDT 09/19/2024 1:34 PM EDT Mo Dickens MD LAB BLOOD ORDERABLES Final Resul t Performing Organization Address [facility]/ZIP Co de Phone Number [address] [address], [address] [address] * (ABNORMAL) POCT Glucose, Fingerstick (09/19/2024 12:21 PM EDT) POC Glucose 145(H) 65 - 99 mg/dL 09/19/2024 12:25 PM EDT Blood specimen / Unknown 09/19/2024 12:21 PM EDT 09/19/2024 12:25 PM EDT Danny Barr MD POINT OF CARE TEST ORDERABLES Fi nal Result Performing Organization Address City/[facility] Co de Phone Number HOSPITAL LAB See Below * ECG 12 lead (09/19/2024 11:13 AM EDT) Systolic BP 161 mmHg EKG [facility] Diastolic BP 77 mmHg EKG [facility] Ventricular rate 114 BPM EKG [facility] Atrial rate 114 BPM EKG [facility] P-R interval 114 ms EKG [facility] QRS duration 116 ms EKG [facility] Q-T interval 376 ms EKG [facility] QTC calculation (Bazett) 518 ms EKG [facility] P axis 62 degrees EKG [facility] R axis 44 degrees EKG [facility] T axis 60 degrees EKG [facility] 09/19/2024 11:1 3 AM EDT Narrative EKG [facility] - 09/19/2024 8:46 PM EDT Sinus tachycardia Right bundle branch block When compared with ECG of 18-Sep-2024 09:56, No significant change was found Confirmed by MD Thakur Melissa ([id number]) on 09/19/2024 8:46:45 PM Procedure Note Claire Thakur MD - 09/19/2024 Sinus tachycardia Right bundle branch block When compared with ECG of 18-Sep-2024 09:56, No significant change was found Confirmed by MD Thakur Melissa ([id number]) on 09/19/2024 8:46:45 PM us Danny Barr MD ECG ORDERABLES Final Result EKG [facility] * Heparin Assay (Anti Xa) (09/19/2024 8:05 AM EDT) Anti Xa 0.36 IU/mL 09/19/2024 8:41 AM EDT [facility] Comment: (NOTE) Heparin Thromboembolic/Standard/Full Dose [...] Age 0-17: ??0.50 - 1.00 IU/mL Anticoagulant HEPARIN, LOW MOLECULAR WEIGHT 09/19/2024 8:05 AM EDT [facility] Blood Blood specimen / Unknown 09/19/2024 8:05 AM EDT 09/19/2024 8:24 AM EDT Mo Dickens MD LAB BLOOD ORDERABLES Final Resul t Performing Organization Address [facility] [place] [address], [place] [address] * (ABNORMAL) POCT Glucose, Fingerstick (09/19/2024 7:29 AM EDT) POC Glucose 110(H) 65 - 99 mg/dL 09/19/2024 7:43 AM EDT Blood specimen / Unknown 09/19/2024 7:29 AM EDT 09/19/2024 7:43 AM EDT Danny Barr MD POINT OF CARE TEST ORDERABLES Fi nal Result Performing Organization Address City/State/[facility] de Phone Number HOSPITAL LAB See Below * (ABNORMAL) POCT Glucose, Fingerstick (09/19/2024 4:09 AM EDT) POC Glucose 123(H) 65 - 99 mg/dL 09/19/2024 4:11 AM EDT Blood specimen / Unknown 09/19/2024 4:09 AM EDT 09/19/2024 4:10 AM EDT Danny Barr MD POINT OF CARE TEST ORDERABLES Fi nal Result Performing Organization Address [facility] de Phone Number [facility] LAB See Below * (ABNORMAL) POCT Glucose, Fingerstick (09/19/2024 12:13 AM EDT) POC Glucose 109(H) 65 - 99 mg/dL 09/19/2024 12:13 AM EDT Blood specimen / Unknown 09/19/2024 12:13 AM EDT 09/19/2024 12:14 AM EDT Danny Barr MD POINT OF CARE TEST ORDERABLES Fi nal Result Performing Organization Address [facility] Phone Number [facility] LAB See Below * Phosphorus (09/19/2024 12:10 AM EDT) Phosphorus 3.7 2.7 - 4.5 mg/dL 09/19/2024 1:17 AM EDT [facility] Blood Blood specimen / Unknown 09/19/2024 12:10 AM EDT 09/19/2024 12:44 AM EDT Daiana Guzman PA-C LAB BLOOD ORDERABLES Final R esult Performing Organization Address [facility] de Phone Number [address] [address], [address] [address] * Magnesium (09/19/2024 12:10 AM EDT) Magnesium 2.5 1.6 - 2.7 mg/dL 09/19/2024 1:17 AM [facility] Blood Blood specimen / Unknown 09/19/2024 12:10 AM EDT 09/19/2024 12:44 AM EDT us Daiana Guzman PA-C LAB BLOOD ORDERABLES Final R esult [address] [address], [address] [address] * (ABNORMAL) Basic Metabolic Panel (09/19/2024 12:10 AM EDT) Glucose 107(H) 65 - 99 mg/dL 09/19/2024 1:17 AM [facility] Comment:Fasting: <100 mg/dL, Non-Fasting: <200 mg/dL (ADA 2005) Blood Urea Nitrogen (BUN) 50(H) 8 - 21 mg/dL 09/19/2024 1:17 AM [facility] Creatinine 0.8 0.5 - 1.3 mg/dL 09/19/2024 1:17 AM [facility] eGFR >90 >59 09/19/2024 1:17 AM [facility] Comment:CKD-EPI (2020) in mL /min/1.73 sq meters. Sodium 145 136 - 145 mmol/L 09/19/2024 1:17 AM [facility] Potassium 3.9 3.4 - 5.3 mmol/L 09/19/2024 1:17 AM [facility] Chloride 117(H) 98 - 107 mmol/L 09/19/2024 1:17 AM [facility] CO2 21(L) 22 - 33 mmol/L 09/19/2024 1:17 AM [facility] Anion Gap 7 7 - 17 09/19/2024 1:17 AM [facility] Calcium 7.6(L) 8.7 - 10.5 mg/dL 09/19/2024 1:17 AM [facility] BUN/Creatinine Ratio 63(H) 10.0 - 25.0 Ratio 09/19/2024 1:17 AM [facility] Blood Blood specimen / Unknown 09/19/2024 12:10 AM EDT 09/19/2024 12:44 AM EDT us Daiana Guzman PA-C LAB BLOOD ORDERABLES Final R esult [address] [address], [address] [address] * (ABNORMAL) COMPLETE BLOOD COUNT, WITHOUT DIFFERENTIAL (09/19/2024 12:10 AM EDT) White Blood Cell Count 9.9 4.0 - 11.0 Thou/uL 09/19/2024 12:58 AM [facility] Platelet Count 254 150 - 450 Thou/uL 09/19/2024 12:58 AM [facility] Hemoglobin 7.5(L) 13.0 - 17.7 g/dL 09/19/2024 12:58 AM [facility] Hematocrit 23.4(L) 39.0 - 54.0 % 09/19/2024 12:58 AM [facility] Red Blood Cell Count 2.35(L) 4.50 - 6.20 Mil/uL 09/19/2024 12:58 AM [facility] MCV 100 80 - 100 fL 09/19/2024 12:58 AM [facility] MCH 31.9(H) 27.0 - 31.0 pg 09/19/2024 12:58 AM [facility] MCHC 32.1 30.0 - 36.0 g/dL 09/19/2024 12:58 AM [facility] RDW 17.2(H) 11.5 - 14.5 % 09/19/2024 12:58 AM [facility] MPV 12.9(H) 7.5 - 12.5 fL 09/19/2024 12:58 AM [facility] nRBC 0.3(H) 0.0 - 0.1 /100 WBC 09/19/2024 12:58 AM [facility] nRBC, Absolute 0.03(H) 0.00 - 0.02 Thou/uL 09/19/2024 12:58 AM EDT [facility] Blood Blood specimen / Unknown 09/19/2024 12:10 AM EDT 09/19/2024 12:44 AM EDT us Daiana Guzman PA-C LAB BLOOD ORDERABLES Final R esult [facility] [address] [place] [address], [facility] [address] [place] [address] * Heparin Assay (Anti Xa) (09/19/2024 12:10 AM EDT) Anti Xa 0.18 IU/mL 09/19/2024 1:07 AM EDT [facility] Comment: (NOTE) Heparin Thromboembolic/Standard/Full Dose [...] Age 0-17: ??0.50 - 1.00 IU/mL Anticoagulant HEPARIN, LOW MOLECULAR WEIGHT 09/19/2024 12:07 AM EDT [facility] Blood Blood specimen / Unknown 09/19/2024 12:10 AM EDT 09/19/2024 12:44 AM EDT Mo Dickens MD LAB BLOOD ORDERABLES Final Resul t Performing Organization Address [facility]/[place] [address], [place] [address] * (ABNORMAL) POCT Glucose, Fingerstick (09/18/2024 8:06 PM EDT) POC Glucose 122(H) 65 - 99 mg/dL 09/18/2024 8:31 PM EDT Blood specimen / Unknown 09/18/2024 8:06 PM EDT 09/18/2024 8:31 PM EDT Danny Barr MD POINT OF CARE TEST ORDERABLES Fi nal Result HOSPITAL LAB See Below * (ABNORMAL) POCT Glucose, Fingerstick (09/18/2024 5:01 PM EDT) POC Glucose 110(H) 65 - 99 mg/dL 09/18/2024 5:05 PM EDT Blood specimen / Unknown 09/18/2024 5:01 PM EDT 09/18/2024 5:05 PM EDT us Danny Barr MD POINT OF CARE TEST ORDERABLES Fi nal Result Performing Organization Address [facility] Phone [facility] LAB See Below * (ABNORMAL) POCT Glucose, Fingerstick (09/18/2024 11:25 AM EDT) POC Glucose 150(H) 65 - 99 mg/dL 09/18/2024 11:33 AM EDT Blood specimen / Unknown 09/18/2024 11:25 AM EDT 09/18/2024 11:33 AM EDT Danny Barr MD POINT OF CARE TEST ORDERABLES Fi nal Result Performing Organization Address [facility] Phone Number [facility] LAB See Below * (ABNORMAL) Blood Gas with Cooximetry, Arterial (09/18/2024 11:13 AM EDT) Pathologist [facility] [place] Respiratory Info VENT 40% 09/19/19 11:14 AM EDT [facility] pH, Arterial 7.50(H) 7.35 - 7.45 09/18/2024 11:40 AM T [facility] pCO2, Arterial 30(L) 32 - 45 mmHG 09/18/2024 11:40 AM T [facility] pO2, Arterial 107(H) 75 - 95 mmHG 09/18/2024 11:40 AM T [facility] CO2, Total 24 22 - 28 mmol/L 09/18/2024 11:40 AM T [facility] P/F Ratio 268 09/18/2024 11:40 AM T [facility] Comment:P/F < 300 or < 200: question ALI or ARDS. Base Excess 0.2 mmol/L 09/18/2024 11:40 AM T [facility] Comment:Reference Range: Neg ative 2 to Positive 3 Hemogloblin, Total 8.0(L) 13.0 - 17.7 g/dL 09/18/2024 11:40 AM EDT [facility] O2 Saturation, Arterial 98.5(H) 94 - 97 % 09/18/2024 11:40 AM EDT [facility] Carboxyhemoglobin 1.4 0.0 - 2.0 % 09/18/2024 11:40 AM EDT [facility] Methemoglobin 0.8 0.4 - 1.5 % 09/18/2024 11:40 AM EDT [facility] O2 Content, Arterial 11.0(L) 17.6 - 24.3 mL/dL 09/18/2024 11:40 AM EDT [facility] Blood Blood specimen / Unknown 09/18/2024 11:13 AM EDT 09/18/2024 11:26 AM EDT Daiana Guzman PA-C LAB BLOOD [place]AB[place] [address], [place] [address] * ECG 12 lead (09/18/2024 9:56 AM EDT) Pathologist [facility] [place] Systolic BP 154 mmHg EKG [facility] Diastolic BP 74 mmHg EKG [facility] Ventricular rate 85 BPM EKG [facility] Atrial rate 85 BPM EKG [facility] P-R interval 126 ms EKG [facility] QRS duration 126 ms EKG [facility] Q-T interval 410 ms EKG [facility] QTC calculation (Bazett) 487 ms EKG [facility] P axis 74 degrees EKG [facility] R axis 83 degrees EKG [facility] T axis 76 degrees EKG [facility] 09/18/2024 9:56 AM EDT Narrative EKG [facility] - 09/18/2024 12:27 PM EDT Normal sinus rhythm Right bundle branch block Abnormal ECG When compared with ECG of 17-Sep-2024 08:49, Premature supraventricular complexes are no longer Present Confirmed by MD Michael, [facility] ([id number]) on 09/18/2024 12:27:11 PM Procedure Note Michael, Troy Bin, MD - 09/18/2024 Normal sinus rhythm Right bundle branch block Abnormal ECG When compared with ECG of 17-Sep-2024 08:49, Premature supraventricular complexes are no longer Present Confirmed by MD Rodriguez Usama ([id number]) on 09/18/2024 12:27:11 PM Danny Barr MD ECG ORDERABLES Final Result Performing Organization Address [facility] Phone Number EKG [facility] * (ABNORMAL) POCT Glucose, Fingerstick (09/18/2024 7:42 AM EDT) POC Glucose 153(H) 65 - 99 mg/dL 09/18/2024 7:54 AM EDT Blood specimen / Unknown 09/18/2024 7:42 AM EDT 09/18/2024 7:54 AM EDT Danny Barr MD POINT OF CARE TEST ORDERABLES Fi nal Result Performing Organization Address [facility] Phone Number [facility] LAB See Below * (ABNORMAL) POCT Glucose, Fingerstick (09/18/2024 3:38 AM EDT) POC Glucose 162(H) 65 - 99 mg/dL 09/18/2024 3:58 AM EDT Blood specimen / Unknown 09/18/2024 3:38 AM EDT 09/18/2024 3:57 AM EDT Danny Barr MD POINT OF CARE TEST ORDERABLES Fi nal Result Performing Organization Address [facility] Phone Number [facility] LAB See Below * Heparin Assay (Anti Xa) (09/18/2024 12:10 AM EDT) Anti Xa 0.32 IU/mL 09/18/2024 12:41 AM EDT [facility] Comment: (NOTE) Heparin Thromboembolic/Standard/Full Dose [...] Age 0-17: ??0.50 - 1.00 IU/mL Anticoagulant HEPARIN, LOW MOLECULAR WEIGHT 09/18/2024 12:02 AM EDT [facility] Blood Blood specimen / Unknown 09/18/2024 12:10 AM EDT 09/18/2024 12:18 AM EDT us Mo Dickens MD LAB BLOOD ORDERABLES Final Resul t Performing Organization Address [facility]/ZIP Co de Phone Number [address] [address], [address] [address] * Phosphorus (09/18/2024 12:10 AM EDT) Phosphorus 2.7 2.7 - 4.5 mg/dL 09/18/2024 12:45 AM EDT [facility] Blood Blood specimen / Unknown 09/18/2024 12:10 AM EDT 09/18/2024 12:18 AM EDT Daiana Guzman PA-C LAB BLOOD ORDERABLES Final R esult Performing Organization Address [facility] Co de Phone Number [address] [address], [address] [address] * Magnesium (09/18/2024 12:10 AM EDT) Magnesium 2.7 1.6 - 2.7 mg/dL 09/18/2024 12:45 AM EDT [facility] Blood Blood specimen / Unknown 09/18/2024 12:10 AM EDT 09/18/2024 12:18 AM EDT Daiana Guzman PA-C LAB BLOOD ORDERABLES Final R esult Performing Organization Address City/[facility] Co de Phone Number [address] [address], [address] [address] * (ABNORMAL) Basic Metabolic Panel (09/18/2024 12:10 AM EDT) Glucose 149(H) 65 - 99 mg/dL 09/18/2024 12:45 AM EDT [facility] Comment:Fasting: <100 mg/dL, Non-Fasting: <200 mg/dL (ADA 2005) Blood Urea Nitrogen (BUN) 55(H) 8 - 21 mg/dL 09/18/2024 12:45 AM [facility] Creatinine 1.0 0.5 - 1.3 mg/dL 09/18/2024 12:45 AM [facility] eGFR 85 >59 09/18/2024 12:45 AM [facility] Comment:CKD-EPI (2020) in mL /min/1.73 sq meters. Sodium 145 136 - 145 mmol/L 09/18/2024 12:45 AM [facility] Potassium 4.2 3.4 - 5.3 mmol/L 09/18/2024 12:45 AM [facility] Chloride 116(H) 98 - 107 mmol/L 09/18/2024 12:45 AM [facility] CO2 23 22 - 33 mmol/L 09/18/2024 12:45 AM [facility] Anion Gap 6(L) 7 - 17 09/18/2024 12:45 AM [facility] Calcium 7.7(L) 8.7 - 10.5 mg/dL 09/18/2024 12:45 AM [facility] BUN/Creatinine Ratio 55(H) 10.0 - 25.0 Ratio 09/18/2024 12:45 AM [facility] Blood Blood specimen / Unknown 09/18/2024 12:10 AM EDT 09/18/2024 12:18 AM EDT us Daiana Guzman PA-C LAB BLOOD ORDERABLES Final R esult [address] [address], [address] [address] * (ABNORMAL) COMPLETE BLOOD COUNT, WITHOUT DIFFERENTIAL (09/18/2024 12:10 AM EDT) White Blood Cell Count 11.6(H) 4.0 - 11.0 Thou/uL 09/18/2024 12:27 AM [facility] Platelet Count 240 150 - 450 Thou/uL 09/18/2024 12:27 AM [facility] Hemoglobin 7.4(L) 13.0 - 17.7 g/dL 09/18/2024 12:27 AM [facility] Hematocrit 22.5(L) 39.0 - 54.0 % 09/18/2024 12:27 AM [facility] Red Blood Cell Count 2.32(L) 4.50 - 6.20 Mil/uL 09/18/2024 12:27 AM [facility] MCV 97 80 - 100 fL 09/18/2024 12:27 AM [facility] MCH 31.9(H) 27.0 - 31.0 pg 09/18/2024 12:27 AM [facility] MCHC 32.9 30.0 - 36.0 g/dL 09/18/2024 12:27 AM [facility] RDW 14.6(H) 11.5 - 14.5 % 09/18/2024 12:27 AM [facility] MPV 13.0(H) 7.5 - 12.5 fL 09/18/2024 12:27 AM [facility] nRBC 0.9(H) 0.0 - 0.1 /100 WBC 09/18/2024 12:27 AM [facility] nRBC, Absolute 0.11(H) 0.00 - 0.02 Thou/uL 09/18/2024 12:27 AM [facility] Blood Blood specimen / Unknown 09/18/2024 12:10 AM EDT 09/18/2024 12:18 AM EDT us Daiana Guzman PA-C LAB BLOOD ORDERABLES Final R esult [address] [address], [address] [address] * (ABNORMAL) POCT Glucose, Fingerstick (09/17/2024 11:45 PM EDT) POC Glucose 201(H) 65 - 99 mg/dL 09/18/2024 12:09 AM EDT Blood specimen / Unknown 09/17/2024 11:45 PM EDT 09/18/2024 12:09 AM EDT us Danny Barr MD POINT OF CARE TEST ORDERABLES Fi nal Result [facility]OSPITAL LAB See Below * Heparin Assay (Anti Xa) (09/17/2024 9:00 PM EDT) Anti Xa 0.35 IU/mL 09/17/2024 9:53 PM EDT [facility] Comment: (NOTE) Heparin Thromboembolic/Standard/Full Dose [...] Age 0-17: ??0.50 - 1.00 IU/mL Anticoagulant HEPARIN, LOW MOLECULAR WEIGHT 09/17/2024 8:43 PM EDT [facility] Blood Blood specimen / Unknown 09/17/2024 9:00 PM EDT 09/17/2024 9:28 PM EDT us Mo Dickens MD LAB BLOOD ORDERABLES Final Resul t Performing Organization Address [facility] [place] [address], [place] [address] * (ABNORMAL) POCT Glucose, Fingerstick (09/17/2024 7:47 PM EDT) POC Glucose 169(H) 65 - 99 mg/dL 09/17/2024 7:58 PM EDT Blood specimen / Unknown 09/17/2024 7:47 PM EDT 09/17/2024 7:58 PM EDT us Danny Barr MD POINT OF CARE TEST ORDERABLES Fi nal Result [facility]OSPITAL LAB See Below * (ABNORMAL) POCT Glucose, Fingerstick (09/17/2024 4:36 PM EDT) POC Glucose 182(H) 65 - 99 mg/dL 09/17/2024 4:38 PM EDT Blood specimen / Unknown 09/17/2024 4:36 PM EDT 09/17/2024 4:37 PM EDT us Danny Barr MD POINT OF CARE TEST ORDERABLES Fi nal Result HOSPITAL LAB See Below * (ABNORMAL) ALBUMIN (09/17/2024 3:11 PM EDT) Albumin 2.3(L) 3.4 - 4.8 g/dL 09/17/2024 5:35 PM EDT [facility] 09/17/2024 3:11 PM EDT 09/17/2024 3:48 PM EDT Mo Dickens MD LAB BLOOD ORDERABLES Final Resul t Performing Organization Address [facility] [place] [address], [place] [address] * Phosphorus (09/17/2024 3:11 PM EDT) Phosphorus 3.5 2.7 - 4.5 mg/dL 09/17/2024 4:08 PM EDT [facility] Blood Blood specimen / Unknown 09/17/2024 3:11 PM EDT 09/17/2024 3:48 PM EDT Daiana Guzman PA-C LAB BLOOD ORDERABLES Final R esult Performing Organization Address [facility] [place] [address], [address] [address] * Magnesium (09/17/2024 3:11 PM EDT) Magnesium 2.5 1.6 - 2.7 mg/dL 09/17/2024 4:08 PM EDT [facility] Blood Blood specimen / Unknown 09/17/2024 3:11 PM EDT 09/17/2024 3:48 PM EDT Daiana Guzman PA-C LAB BLOOD ORDERABLES Final R esult [address] [address], [address] [address] * (ABNORMAL) Basic Metabolic Panel (09/17/2024 3:11 PM EDT) Glucose 153(H) 65 - 99 mg/dL 09/17/2024 4:08 PM EDT [facility] Comment:Fasting: <100 mg/dL, Non-Fasting: <200 mg/dL (ADA 2004) Blood Urea Nitrogen (BUN) 57(H) 8 - 21 mg/dL 09/17/2024 4:08 PM EDT [facility] Creatinine 1.1 0.5 - 1.3 mg/dL 09/17/2024 4:08 PM [facility] eGFR 75 >59 09/17/2024 4:08 PM [facility] Comment:CKD-EPI (2020) in mL /min/1.73 sq meters. Sodium 147(H) 136 - 145 mmol/L 09/17/2024 4:08 PM EDT [facility] Potassium 3.8 3.4 - 5.3 mmol/L 09/17/2024 4:08 PM [facility] Chloride 116(H) 98 - 107 mmol/L 09/17/2024 4:08 PM EDT [facility] CO2 22 22 - 33 mmol/L 09/17/2024 4:08 PM [facility] Anion Gap 9 7 - 17 09/17/2024 [facility]08 PM [facility] Calcium 7.0(L) 8.7 - 10.5 mg/dL 09/17/2024 4:08 PM [facility] BUN/Creatinine Ratio 52(H) 10.0 - 25.0 Ratio 09/17/2024 4:08 PM [facility] Blood Blood specimen / Unknown 09/17/2024 3:11 PM EDT 09/17/2024 3:48 PM EDT us Daiana Guzman PA-C LAB BLOOD ORDERABLES Final R esult Performing Organization Address City/[facility]/ZIP Co de Phone Number [address] [address], [facility] [address] [place] [address] * Heparin Assay (Anti Xa) (09/17/2024 3:11 PM EDT) [facility] Signature Anti Xa 0.49 IU/mL 09/17/2024 3:59 PM EDT [facility] Comment: (NOTE) Heparin Thromboembolic/Standard/Full Dose [...] - 1.00 IU/mL Anticoagulant IV HEPARIN, UNFRACTIONATED 09/17/2024 2:18 PM EDT [facility] Blood Blood specimen / Unknown 09/17/2024 3:11 PM EDT 09/17/2024 3:48 PM EDT Mo Dickens MD LAB BLOOD ORDERABLES Final Resul t Performing Organization Address [facility] [place] [address], [place] [address] * (ABNORMAL) POCT Glucose, Fingerstick (09/17/2024 11:42 AM EDT) Pathologist [facility] [place] POC Glucose 164(H) 65 - 99 mg/dL 09/17/2024 11:43 AM EDT Blood specimen / Unknown 09/17/2024 11:42 AM EDT 09/17/2024 11:43 AM EDT Danny Barr MD POINT OF CARE TEST ORDERABLES Fi nal Result Performing Organization Address City/[facility] Co de Phone Number HOSPITAL LAB See Below * ECG 12 lead (09/17/2024 8:49 AM EDT) Systolic BP 115 mmHg [address] [facility] Diastolic BP 55 mmHg EKG [facility] Ventricular rate 79 BPM EKG [facility] Atrial rate 79 BPM EKG [facility] P-R interval 122 ms EKG [facility] QRS duration 128 ms EKG [facility] Q-T interval 414 ms EKG [facility] QTC calculation (Bazett) 474 ms EKG [facility] P axis 68 degrees EKG [facility] R axis 57 degrees EKG [facility] T axis 69 degrees EKG [facility] 09/17/2024 8:49 AM EDT Narrative EKG [facility] - 09/17/2024 10:34 PM EDT Sinus rhythm with Premature supraventricular complexes Right bundle branch block Abnormal ECG When compared with ECG of 16-Sep-2024 07:34, (unconfirmed) Premature supraventricular complexes are now Present Confirmed by MD Lobo Brett ([id number]) on 09/17/2024 10:34:23 PM Procedure Note Bernabe Lobo MD - 09/17/2024 Sinus rhythm with Premature supraventricular complexes Right bundle branch block Abnormal ECG When compared with ECG of 16-Sep-2024 07:34, (unconfirmed) Premature supraventricular complexes are now Present Confirmed by MD Lobo Brett ([id number]) on 09/17/2024 10:34:23 PM us Danny Barr MD ECG ORDERABLES Final Result Performing Organization Address City/[facility]/ZIP Co de Phone Number EKG [facility] * (ABNORMAL) POCT Glucose, Fingerstick (09/17/2024 7:39 AM EDT) POC Glucose 123(H) 65 - 99 mg/dL 09/17/2024 8:09 AM EDT Blood specimen / Unknown 09/17/2024 7:39 AM EDT 09/17/2024 8:08 AM EDT us Danny Barr MD POINT OF CARE TEST ORDERABLES Fi nal Result HOSPITAL LAB See Below * EEG 24 HOUR WITH VIDEO (09/17/2024 6:43 AM EDT) Narrative [facility] - 09/17/2024 6:43 AM EDT Kira Love MD ? 09/20/2024 ??2:48 PM ADULT INPATIENT CONTINUOUS VIDEO-EEG MONITORING (LTM) REPORT Facility: ? [facility] Patient and : Mariah Masterson 1960 Date of Procedure: 09/17/2024 Admission Attending: [...] (![id number], ![id number], ![id number]&[id number], ![id number]&[id number]) Kira Sena MD. [facility] us Shira Bonilla PA-C NEUROLOGY ORDERABLES Edited Re sult - Final [facility] [address] [place] [address], * Heparin Assay (Anti Xa) (09/17/2024 6:33 AM EDT) Anti Xa 0.54 IU/mL 09/17/2024 7:13 AM EDT [facility] Comment: (NOTE) Heparin Thromboembolic/Standard/Full Dose [...] - 1.00 IU/mL Anticoagulant IV HEPARIN, UNFRACTIONATED 09/17/2024 6:33 AM EDT [facility] Blood Blood specimen / Unknown 09/17/2024 6:33 AM EDT 09/17/2024 6:51 AM EDT us Mo Dickens MD LAB BLOOD ORDERABLES Final Resul t Performing Organization Address City/State/[facility] Co de Phone Number [facility] [address] [place] [address], [facility] [address] [place] [address] * (ABNORMAL) POCT Glucose, Fingerstick (09/17/2024 3:41 AM EDT) POC Glucose 160(H) 65 - 99 mg/dL 09/17/2024 3:46 AM EDT Blood specimen / Unknown 09/17/2024 3:41 AM EDT 09/17/2024 3:46 AM EDT us Danny Barr MD POINT OF CARE TEST ORDERABLES Fi nal Result HOSPITAL LAB See Below * Heparin Assay (Anti Xa) (09/17/2024 12:30 AM EDT) Anti Xa 0.69 IU/mL 09/17/2024 12:50 AM EDT [facility] Comment: (NOTE) Heparin Thromboembolic/Standard/Full Dose [...] - 1.00 IU/mL Anticoagulant IV HEPARIN, UNFRACTIONATED 09/17/2024 12:25 AM EDT [facility] Blood Blood specimen / Unknown 09/17/2024 12:30 AM EDT 09/17/2024 12:36 AM EDT Mo Dickens MD LAB BLOOD ORDERABLES Final Resul t Performing Organization Address City/[facility] [place] [address], [place] [address] * Phosphorus (09/17/2024 12:30 AM EDT) Phosphorus 4.1 2.7 - 4.5 mg/dL 09/17/2024 12:59 AM EDT [facility] Blood Blood specimen / Unknown 09/17/2024 12:30 AM EDT 09/17/2024 12:36 AM EDT Daiana Guzman PA-C LAB BLOOD ORDERABLES Final R esult Performing Organization Address [facility] [place] [address], [place] [address] * Magnesium (09/17/2024 12:30 AM EDT) Magnesium 2.7 1.6 - 2.7 mg/dL 09/17/2024 12:59 AM [facility] Blood Blood specimen / Unknown 09/17/2024 12:30 AM EDT 09/17/2024 12:36 AM EDT us Daiana Guzman PA-C LAB BLOOD ORDERABLES Final R esult [address] [address], [address] [address] * (ABNORMAL) Basic Metabolic Panel (09/17/2024 12:30 AM EDT) Glucose 166(H) 65 - 99 mg/dL 09/17/2024 12:59 AM [facility] Comment:Fasting: <100 mg/dL, Non-Fasting: <200 mg/dL (ADA 2004) Blood Urea Nitrogen (BUN) 65(H) 8 - 21 mg/dL 09/17/2024 12:59 AM [facility] Creatinine 1.4(H) 0.5 - 1.3 mg/dL 09/17/2024 12:59 AM [facility] eGFR 56(L) >59 09/17/2024 12:59 AM [facility] Comment:CKD-EPI (2020) in mL /min/1.73 sq meters. Sodium 142 136 - 145 mmol/L 09/17/2024 12:59 AM [facility] Potassium 4.6 3.4 - 5.3 mmol/L 09/17/2024 12:59 AM [facility] Chloride 110(H) 98 - 107 mmol/L 09/17/2024 12:59 AM [facility] CO2 25 22 - 33 mmol/L 09/17/2024 12:59 AM [facility] Anion Gap 7 7 - 17 09/17/2024 12:59 AM [facility] Calcium 7.6(L) 8.7 - 10.5 mg/dL 09/17/2024 12:59 AM [facility] BUN/Creatinine Ratio 46(H) 10.0 - 25.0 Ratio 09/17/2024 12:59 AM [facility] Blood Blood specimen / Unknown 09/17/2024 12:30 AM EDT 09/17/2024 12:36 AM EDT us Daiana Guzman PA-C LAB BLOOD ORDERABLES Final R esult [address] [address], [facility] [address] [place] [address] * (ABNORMAL) COMPLETE BLOOD COUNT, WITHOUT DIFFERENTIAL (09/17/2024 12:30 AM EDT) White Blood Cell Count 11.9(H) 4.0 - 11.0 Thou/uL 09/17/2024 12:43 AM [facility] Platelet Count 221 150 - 450 Thou/uL 09/17/2024 12:43 AM [facility] Hemoglobin 7.3(L) 13.0 - 17.7 g/dL 09/17/2024 12:43 AM [facility] Hematocrit 22.6(L) 39.0 - 54.0 % 09/17/2024 12:43 AM [facility] Red Blood Cell Count 2.34(L) 4.50 - 6.20 Mil/uL 09/17/2024 12:43 AM [facility] MCV 97 80 - 100 fL 09/17/2024 12:43 AM [facility] MCH 31.2(H) 27.0 - 31.0 pg 09/17/2024 12:43 AM [facility] MCHC 32.3 30.0 - 36.0 g/dL 09/17/2024 12:43 AM [facility] RDW 13.4 11.5 - 14.5 % 09/17/2024 12:43 AM [facility] MPV 13.3(H) 7.5 - 12.5 fL 09/17/2024 12:43 AM [facility] nRBC 0.8(H) 0.0 - 0.1 /100 WBC 09/17/2024 12:43 AM [facility] nRBC, Absolute 0.10(H) 0.00 - 0.02 Thou/uL 09/17/2024 12:43 AM [facility] Immature Platelet Fraction 11.1(H) 1.2 - 8.6 % 09/17/2024 12:43 AM EDT [facility] Blood Blood specimen / Unknown 09/17/2024 12:30 AM EDT 09/17/2024 12:36 AM EDT Daiana Guzman PA-C LAB BLOOD ORDERABLES Final R esult Performing Organization Address [facility] Co de Phone Number [address] [address], [address] [address] * (ABNORMAL) POCT Glucose, Fingerstick (09/16/2024 11:55 PM EDT) POC Glucose 169(H) 65 - 99 mg/dL 09/16/2024 11:55 PM EDT Blood specimen / Unknown 09/16/2024 11:55 PM EDT 09/16/2024 11:56 PM EDT Danny Barr MD POINT OF CARE TEST ORDERABLES Fi nal Result Performing Organization Address [facility] Co de Phone Number [facility] LAB See Below * (ABNORMAL) POCT Glucose, Fingerstick (09/16/2024 7:20 PM EDT) POC Glucose 161(H) 65 - 99 mg/dL 09/16/2024 7:52 PM EDT Blood specimen / Unknown 09/16/2024 7:20 PM EDT 09/16/2024 7:52 PM EDT Danny Barr MD POINT OF CARE TEST ORDERABLES Fi nal Result Performing Organization Address [facility] Co de Phone Number [facility] See Below * EEG - Long-term monitoring (09/16/2024 6:55 PM EDT) Narrative [facility] - 09/16/2024 6:55 PM EDT Kira Love MD ? 09/16/2024 ??7:07 PM ADULT INPATIENT CONTINUOUS VIDEO-EEG MONITORING (LTM) REPORT Facility: ? [facility] Patient and : Mariah Masterson 1960 Date of Procedure: 09/16/2024 Admission Attending: [...] THE NEUROLOGY CARE TEAM. Kira Sena MD. [facility] us Shira Bonilla PA-C NEUROLOGY ORDERABLES Edited Re sult - Final [facility] [address] [id number], [place] * (ABNORMAL) COMPLETE BLOOD COUNT, WITHOUT DIFFERENTIAL (09/16/2024 6:43 PM EDT) White Blood Cell Count 11.0 4.0 - 11.0 Thou/uL 09/16/2024 7:08 PM [facility] Platelet Count 238 150 - 450 Thou/uL 09/16/2024 7:08 PM [facility] Hemoglobin 8.1(L) 13.0 - 17.7 g/dL 09/16/2024 7:08 PM [facility] Hematocrit 24.4(L) 39.0 - 54.0 % 09/16/2024 7:08 PM [facility] Red Blood Cell Count 2.53(L) 4.50 - 6.20 Mil/uL 09/16/2024 7:08 PM [facility] MCV 96 80 - 100 fL 09/16/2024 7:08 PM [facility] MCH 32.0(H) 27.0 - 31.0 pg 09/16/2024 7:08 PM [facility] MCHC 33.2 30.0 - 36.0 g/dL 09/16/2024 7:08 PM [facility] RDW 13.2 11.5 - 14.5 % 09/16/2024 7:08 PM [facility] MPV 13.0(H) 7.5 - 12.5 fL 09/16/2024 7:08 PM [facility] nRBC 0.6(H) 0.0 - 0.1 /100 WBC 09/16/2024 7:08 PM [facility] nRBC, Absolute 0.07(H) 0.00 - 0.02 Thou/uL 09/16/2024 7:08 PM [facility] Blood Blood specimen / Unknown 09/16/2024 6:43 PM EDT 09/16/2024 6:57 PM EDT Torri VELASCO LAB BLOOD ORDERABLES Naina sutherland Result [address] [address], [address] [address] * (ABNORMAL) Partial Thromboplastin Time (PTT) (09/16/2024 5:07 PM EDT) Anticoagulant IV HEPARIN, UNFRACTIONATED 09/16/2024 5:07 PM EDT [facility] Partial Thromboplastin Time (PTT) 24(L) 25 - 36 seconds 09/16/2024 6:13 PM EDT [facility] Blood Blood specimen / Unknown 09/16/2024 5:07 PM EDT 09/16/2024 5:26 PM EDT Daiana Guzman PA-C LAB BLOOD [place]AB[place] [address], [place] [address] * (ABNORMAL) Protime-INR (09/16/2024 5:07 PM EDT) Anticoagulant IV HEPARIN, UNFRACTIONATED 09/16/2024 5:07 PM EDT [facility] Prothrombin Time (PT) 14.1(H) 10.0 - 13.5 seconds 09/16/2024 6:13 PM EDT [facility] INR 1.2 09/16/2024 6:13 PM EDT [facility] Comment:INR Therapeutic Rang es: Standard dose anticoagulant 2.0 to 3.0, High dose anticoagulant 2.5-3.5. Blood Blood specimen / Unknown 09/16/2024 5:07 PM EDT 09/16/2024 5:26 PM EDT Daiana Guzman PA-C LAB BLOOD [place]AB[place] [address], [address] [address] * (ABNORMAL) Complete Blood Count, with Differential (09/16/2024 5:07 PM EDT) Pathologist [facility] [place] White Blood Cell Count Test not performed due to insufficient quantity of specimen. 4.0 - 11.0 Thou/uL 09/16/2024 6:13 PM [facility] Platelet Count Test not performed due to insufficient quantity of specimen. 150 - 450 Thou/uL 09/16/2024 6:13 PM [facility] Hemoglobin Test not performed due to insufficient quantity of specimen. 13.0 - 17.7 g/dL 09/16/2024 6:13 PM [facility] Hematocrit Test not performed due to insufficient quantity of specimen. 39.0 - 54.0 % 09/16/2024 6:13 PM [facility] Red Blood Cell Count Test not performed due to insufficient quantity of specimen. 4.50 - 6.20 Mil/uL 09/16/2024 6:13 PM [facility] MCV Test not performed due to insufficient quantity of specimen. 80 - 100 fL 09/16/2024 6:13 PM [facility] MCH Test not performed due to insufficient quantity of specimen. 27.0 - 31.0 pg 09/16/2024 6:13 PM [facility] MCHC Test not performed due to insufficient quantity of specimen. 30.0 - 36.0 g/dL 09/16/2024 6:13 PM [facility] RDW Test not performed due to insufficient quantity of specimen. 11.5 - 14.5 % 09/16/2024 6:13 PM [facility] MPV Test not performed due to insufficient quantity of specimen. 7.5 - 12.5 fL 09/16/2024 6:13 PM [facility] nRBC Test not performed due to insufficient quantity of specimen. 0.0 - 0.1 /100 WBC 09/16/2024 6:13 PM [facility] nRBC, Absolute Test not performed due to insufficient quantity of specimen. 0.00 - 0.02 Thou/uL 09/16/2024 6:13 PM [facility] Comment Test not performed due to insufficient quantity of specimen.(A) No comment 09/16/2024 6:13 PM [facility] Immature Platelet Fraction Test not performed due to insufficient quantity of specimen. 1.2 - 8.6 % 09/16/2024 6:13 PM [facility] Blood Blood specimen / Unknown 09/16/2024 5:07 PM EDT 09/16/2024 5:26 PM EDT Daiana Guzman PA-C LAB BLOOD ORDERABLES Final R esult Performing Organization Address [facility] Co de Phone Number [address] [address], [address] [address] * (ABNORMAL) Sodium (09/16/2024 4:16 PM EDT) Sodium 147(H) 136 - 145 mmol/L 09/16/2024 4:53 PM EDT [facility] Blood Blood specimen / Unknown 09/16/2024 4:16 PM EDT 09/16/2024 4:27 PM EDT Daiana Paolo Thomas PA-C LAB BLOOD ORDERABLES Final R esult Performing Organization Address [facility] Co de Phone Number [address] [address], [address] [address] * Blood Culture (09/16/2024 4:16 PM EDT) Culture Sterile after 5 days 09/21/2024 9:59 AM EDT [facility] Blood Blood specimen / Unknown 09/16/2024 4:16 PM EDT 09/16/2024 6:01 PM EDT Comment:Blood Daiana Guzman PA-C LAB BLOOD ORDERABLES Final R esult [facility] [address] [place] [address], * Blood Culture (09/16/2024 4:16 PM EDT) Culture Sterile after 5 days 09/21/2024 9:59 AM EDT [facility] Blood Blood specimen / Unknown 09/16/2024 4:16 PM EDT 09/16/2024 6:00 PM EDT Comment:Blood Daiaan Guzman PA-C LAB BLOOD ORDERABLES Final R esult Performing Organization Address [facility] Co de Phone Number [facility] [address] [place] [address], [place] * (ABNORMAL) POCT Glucose, Fingerstick (09/16/2024 4:03 PM EDT) POC Glucose 176(H) 65 - 99 mg/dL 09/16/2024 4:17 PM EDT Blood specimen / Unknown 09/16/2024 4:03 PM EDT 09/16/2024 4:17 PM EDT Danny Barr MD POINT OF CARE TEST ORDERABLES Fi nal Result Performing Organization Address [facility] Co de Phone Number [facility] See Below * (ABNORMAL) POCT Glucose, Fingerstick (09/16/2024 1:04 PM EDT) POC Glucose 132(H) 65 - 99 mg/dL 09/16/2024 1:10 PM EDT Blood specimen / Unknown 09/16/2024 1:04 PM EDT 09/16/2024 1:10 PM EDT Danny Barr MD POINT OF CARE TEST ORDERABLES Fi nal Result Performing Organization Address [facility] Co de Phone Number HOSPITAL LAB See Below * MRV Head w w/o contrast (09/16/2024 [...] ??MR brain with contrast 09/12/2024. Technique: 2-D ncaz-[id number] magnetic resonance angiographic images of the intracranial [...] MR brain with contrast 09/12/2024. Technique: 2-D wgbq-[id number] magnetic resonance angiographic images of the intracranial [...] or complete occlusion. us Shira Bonilla PA-C IMG MRI ORDERABLES Final Resul t * (ABNORMAL) POCT Glucose, Fingerstick (09/16/2024 7:53 AM EDT) POC Glucose 134(H) 65 - 99 mg/dL 09/16/2024 8:27 AM EDT Blood specimen / Unknown 09/16/2024 7:53 AM EDT 09/16/2024 8:27 AM EDT us Danny Barr MD POINT OF CARE TEST ORDERABLES Fi nal Result Performing Organization Address [facility]/ZIP Co de Phone Number HOSPITAL LAB See Below * ECG 12 lead (09/16/2024 7:34 AM EDT) [facility] Systolic BP 120 mmHg [address] [facility] Diastolic BP 58 mmHg EKG [facility] Ventricular rate 93 BPM EKG [facility] Atrial rate 93 BPM EKG [facility] P-R interval 116 ms EKG [facility] QRS duration 118 ms EKG [facility] Q-T interval 374 ms EKG [facility] QTC calculation (Bazett) 465 ms EKG [facility] P axis 72 degrees EKG [facility] R axis 78 degrees EKG [facility] T axis 70 degrees EKG [facility] 09/16/2024 7:34 AM EDT Narrative EKG [facility] - 09/17/2024 10:47 PM EDT Normal sinus rhythm Right bundle branch block Abnormal ECG When compared with ECG of 15-Sep-2024 08:19, Premature supraventricular complexes are no longer Present Confirmed by MD Lobo Brett ([id number]) on 09/17/2024 10:47:27 PM Procedure Note Bernabe Lobo MD - 09/17/2024 Normal sinus rhythm Right bundle branch block Abnormal ECG When compared with ECG of 15-Sep-2024 08:19, Premature supraventricular complexes are no longer Present Confirmed by MD Lobo Brett ([id number]) on 09/17/2024 10:47:27 PM us Danny Barr MD ECG ORDERABLES Final Result Performing Organization Address City/[facility]/ZIP Co de Phone Number [facility] * (ABNORMAL) POCT Glucose, Fingerstick (09/16/2024 3:26 AM EDT) POC Glucose 172(H) 65 - 99 mg/dL 09/16/2024 3:36 AM EDT Blood specimen / Unknown 09/16/2024 3:26 AM EDT 09/16/2024 3:36 AM EDT Danny Barr MD POINT OF CARE TEST ORDERABLES Fi nal Result [facility]OSPITAL LAB See Below * (ABNORMAL) POCT Glucose, Fingerstick (2024 11:33 PM EDT) POC Glucose 166(H) 65 - 99 mg/dL 09/16/2024 12:25 AM EDT Blood specimen / Unknown 2024 11:33 PM EDT 09/16/2024 12:25 AM EDT Danny Barr MD POINT OF CARE TEST ORDERABLES Fi nal Result [facility] See Below * Phosphorus (2024 11:28 PM EDT) Phosphorus 3.6 2.7 - 4.5 mg/dL 09/16/2024 12:55 AM EDT [facility] Blood Blood specimen / Unknown 2024 11:28 PM EDT 09/16/2024 12:26 AM EDT Shira Bonilla PA-C LAB BLOOD ORDERABLES Final Res ult Performing Organization Address City/[facility]/ZIP Co de Phone Number [address] [address], [address] [address] * Magnesium (2024 11:28 PM EDT) Magnesium 2.5 1.6 - 2.7 mg/dL 09/16/2024 12:55 AM EDT [facility] Blood Blood specimen / Unknown 2024 11:28 PM EDT 09/16/2024 12:26 AM EDT us Shira Bonilla PA-C LAB BLOOD ORDERABLES Final Res ult [facility] [address] [place] [address], [address] [address] * (ABNORMAL) Basic Metabolic Panel (2024 11:28 PM EDT) Glucose 156(H) 65 - 99 mg/dL 09/16/2024 12:55 AM [facility] Comment:Fasting: <100 mg/dL, Non-Fasting: <200 mg/dL (ADA 2004) Blood Urea Nitrogen (BUN) 55(H) 8 - 21 mg/dL 09/16/2024 12:55 AM [facility] Creatinine 1.1 0.5 - 1.3 mg/dL 09/16/2024 12:55 AM [facility] eGFR 75 >59 09/16/2024 12:55 AM [facility] Comment:CKD-EPI (2020) in mL /min/1.73 sq meters. Sodium 146(H) 136 - 145 mmol/L 09/16/2024 12:55 AM [facility] Potassium 4.9 3.4 - 5.3 mmol/L 09/16/2024 12:55 AM [facility] Chloride 111(H) 98 - 107 mmol/L 09/16/2024 12:55 AM [facility] CO2 28 22 - 33 mmol/L 09/16/2024 12:55 AM [facility] Anion Gap 7 7 - 17 09/16/2024 12:55 AM [facility] Calcium 8.0(L) 8.7 - 10.5 mg/dL 09/16/2024 12:55 AM [facility] BUN/Creatinine Ratio 50(H) 10.0 - 25.0 Ratio 09/16/2024 12:55 AM [facility] Blood Blood specimen / Unknown 2024 11:28 PM EDT 09/16/2024 12:26 AM EDT us Shira Bonilla PA-C LAB BLOOD ORDERABLES Final Res ult [facility] [address] [place] [address], [facility] [address] [place] [address] * (ABNORMAL) Complete Blood Count, WITHOUT Differential (routine) (2024 11:28 PM EDT) White Blood Cell Count 12.8(H) 4.0 - 11.0 Thou/uL 09/16/2024 12:42 AM [facility] Platelet Count 190 150 - 450 Thou/uL 09/16/2024 12:42 AM [facility] Hemoglobin 7.9(L) 13.0 - 17.7 g/dL 09/16/2024 12:42 AM [facility] Hematocrit 24.1(L) 39.0 - 54.0 % 09/16/2024 12:42 AM [facility] Red Blood Cell Count 2.51(L) 4.50 - 6.20 Mil/uL 09/16/2024 12:42 AM [facility] MCV 96 80 - 100 fL 09/16/2024 12:42 AM [facility] MCH 31.5(H) 27.0 - 31.0 pg 09/16/2024 12:42 AM [facility] MCHC 32.8 30.0 - 36.0 g/dL 09/16/2024 12:42 AM [facility] RDW 12.3 11.5 - 14.5 % 09/16/2024 12:42 AM [facility] MPV 13.4(H) 7.5 - 12.5 fL 09/16/2024 12:42 AM [facility] nRBC 0.2(H) 0.0 - 0.1 /100 WBC 09/16/2024 12:42 AM [facility] nRBC, Absolute 0.02 0.00 - 0.02 Thou/uL 09/16/2024 12:42 AM [facility] Immature Platelet Fraction 14.1(H) 1.2 - 8.6 % 09/16/2024 12:42 AM [facility] Blood Blood specimen / Unknown 2024 11:28 PM EDT 09/16/2024 12:26 AM EDT Shira Bonilla PA-C LAB BLOOD ORDERABLES Final Res ult Performing Organization Address [facility] Co de Phone Number [address] [address], [address] [address] * (ABNORMAL) POCT Glucose, Fingerstick (2024 8:11 PM EDT) POC Glucose 144(H) 65 - 99 mg/dL 2024 8:13 PM EDT Blood specimen / Unknown 2024 8:11 PM EDT 2024 8:13 PM EDT Danny Barr MD POINT OF CARE TEST ORDERABLES Fi nal Result Performing Organization Address [facility] Co de Phone Number [facility] LAB See Below * (ABNORMAL) POCT Glucose, Fingerstick (2024 8:01 PM EDT) POC Glucose 154(H) 65 - 99 mg/dL 2024 8:12 PM EDT Blood specimen / Unknown 2024 8:01 PM EDT 2024 8:12 PM EDT Danny Barr MD POINT OF CARE TEST ORDERABLES Fi nal Result Performing Organization Address [facility] Co de Phone Number [facility] See Below * (ABNORMAL) POCT Glucose, Fingerstick (2024 3:54 PM EDT) POC Glucose 168(H) 65 - 99 mg/dL 2024 4:09 PM EDT Blood specimen / Unknown 2024 3:54 PM EDT 2024 4:09 PM EDT us Danny Barr MD POINT OF CARE TEST ORDERABLES Fi nal Result HOSPITAL LAB See Below * EEG AWAKE OR DROWSY (2024 2:41 PM EDT) Narrative [facility] - 2024 10:32 AM EDT Milind Reyes MD ? 2024 10:36 AM INPATIENT ADULT ??ELECTROENCEPHALOGRAM (EEG) REPORT ?? Facility: ? [facility] Patient and : Mariah Masterson 1960 Date of Procedure: 2024 Admission Attending: [...] limited due to lack of video review. [id number] Brief ictal rhythmic discharges (BIRDs) ??NO 0 Lateralized periodic discharges (LPDs) OR lateralized rhythmic delta activity (LRDA) OR bilateral independent periodic discharges ??NO 0 Prior seizure ??NO 0 Sporadic epileptiform discharges ??NO 0 Frequency greater than 2 Hz for any periodic or rhythmic pattern ?? NO 0 Presence of PLUS features (superimposed, rhythmic, sharp, or faster activity) NO 0 [id number] TOTAL SCORE: ??0 ? (5% SZ [![id number]]) Milind Reyes MD [facility] FOR EEG LAB USE: Abnormal Non-epileptiform :qz![id number] No interictals :qz!03; No events :qz!08; Complexity ratin :qz!14 us Shira Bonilla PA-C NEUROLOGY ORDERABLES Final Res ult [facility] [address] [place] [address], * Phosphorus (2024 12:42 PM EDT) Phosphorus 4.5 2.7 - 4.5 mg/dL 2024 1:36 PM EDT [facility] Blood Blood specimen / Unknown 2024 12:42 PM EDT 2024 1:06 PM EDT us Shira Bonilla PA-C LAB BLOOD ORDERABLES Final Res ult Performing Organization Address City/[facility]/[place] [address], [address] [address] * Magnesium (2024 12:42 PM EDT) Magnesium 2.6 1.6 - 2.7 mg/dL 2024 1:36 PM EDT [facility] Blood Blood specimen / Unknown 2024 12:42 PM EDT 2024 1:06 PM EDT Shira Bonilla PA-C LAB BLOOD ORDERABLES Final Res ult Performing Organization Address City/[facility]/[place] [address], [address] [address] * (ABNORMAL) Basic Metabolic Panel (2024 12:42 PM EDT) Glucose 136(H) 65 - 99 mg/dL 2024 1:36 PM EDT [facility] Comment:Fasting: <100 mg/dL, Non-Fasting: <200 mg/dL (ADA 2004) Blood Urea Nitrogen (BUN) 54(H) 8 - 21 mg/dL 2024 1:36 PM EDT [facility] Creatinine 1.1 0.5 - 1.3 mg/dL 2024 1:36 PM EDT [facility] eGFR 75 >59 2024 1:36 PM EDT [facility] Comment:CKD-EPI (2020) in mL /min/1.73 sq meters. Sodium 145 136 - 145 mmol/L 2024 1:36 PM EDT [facility] Potassium 5.4(H) 3.4 - 5.3 mmol/L 2024 1:36 PM EDT [facility] Chloride 109(H) 98 - 107 mmol/L 2024 1:36 PM EDT [facility] CO2 31 22 - 33 mmol/L 2024 1:36 PM EDT [facility] Anion Gap 5(L) 7 - 17 2024 1:36 PM EDT [facility] Calcium 8.0(L) 8.7 - 10.5 mg/dL 2024 1:36 PM EDT [facility] BUN/Creatinine Ratio 49(H) 10.0 - 25.0 Ratio 2024 1:36 PM EDT [facility] Blood Blood specimen / Unknown 2024 12:42 PM EDT 2024 1:06 PM EDT Shira Bonilla PA-C LAB BLOOD ORDERABLES Final Res ult Performing Organization Address [facility]/[place] [address], [place] [address] * (ABNORMAL) POCT Glucose, Fingerstick (2024 12:09 PM EDT) POC Glucose 151(H) 65 - 99 mg/dL 2024 1:49 PM EDT Blood specimen / Unknown 2024 12:09 PM EDT 2024 1:49 PM EDT Danny Barr MD POINT OF CARE TEST ORDERABLES Fi nal Result HOSPITAL LAB See Below * (ABNORMAL) Blood Gas with Cooximetry, Venous (2024 11:36 AM EDT) Respiratory Info VENT 40% 09/16/19 11:36 AM EDT [facility] Venous Blood PH 7.43 7.33 - 7.43 2024 11:54 AM EDT [facility] Venous pCO2 50 35 - 50 mmHG 2024 11:54 AM EDT [facility] Venous pO2 34 0 - 60 mmHG 2024 11:54 AM EDT [facility] Venous Total CO2 34(H) 23 - 29 mmol/L 2024 11:54 AM EDT [facility] Base Excess 7.6 mmol/L 2024 11:54 AM EDT [facility] Comment:Reference Range: Neg ative 2 to Positive 3 Hemogloblin, Total 5.3(L) 13.0 - 17.7 g/dL 2024 11:54 AM EDT [facility] O2 Saturation, Venous 62.9 % 11:54 AM EDT [facility] Carboxyhemoglobin 1.3 0.0 - 2.0 % 2024 11:54 AM EDT [facility] Methemoglobin 0.8 0.4 - 1.5 % 2024 11:54 AM EDT [facility] Venous O2 Content 3.3(L) 7.2 - 17.2 mL/dL 2024 11:54 AM EDT [facility] Blood Blood specimen / Unknown 2024 11:36 AM EDT 2024 11:50 AM EDT Ai Cole PA-C LAB BLOOD [place]AB[place] [address], [address] [address] * ECG 12 lead (2024 8:19 AM EDT) Systolic BP 132 mmHg EKG [facility] Diastolic BP 62 mmHg EKG [facility] Ventricular rate 106 BPM EKG [facility] Atrial rate 106 BPM EKG [facility] P-R interval 114 ms EKG [facility] QRS duration 114 ms EKG [facility] Q-T interval 372 ms EKG [facility] QTC calculation (Bazett) 494 ms EKG [facility] P axis 71 degrees EKG [facility] R axis 81 degrees EKG [facility] T axis 74 degrees EKG [facility] 2024 8:19 AM EDT Narrative EKG [facility] - 2024 8:32 AM EDT Sinus tachycardia with Premature supraventricular complexes Right bundle branch block Abnormal ECG Confirmed by MD Moffett John ([id number]) on 2024 8:32:45 AM Procedure Note Cecil Moffett MD - 2024 Sinus tachycardia with Premature supraventricular complexes Right bundle branch block Abnormal ECG Confirmed by MD Moffett John ([id number]) on 2024 8:32:45 AM Danny Barr MD ECG ORDERABLES Final Result Performing Organization Address [facility] Co de Phone Number EKG [facility] * (ABNORMAL) POCT Glucose, Fingerstick (2024 7:52 AM EDT) POC Glucose 149(H) 65 - 99 mg/dL 2024 7:53 AM EDT Blood specimen / Unknown 2024 7:52 AM EDT 2024 7:53 AM EDT us Danny Barr MD POINT OF CARE TEST ORDERABLES Fi nal Result Performing Organization Address [facility] Phone Number HOSPITAL LAB See Below * (ABNORMAL) POCT Glucose, Fingerstick (2024 3:44 AM EDT) POC Glucose 148(H) 65 - 99 mg/dL 2024 4:22 AM EDT Blood specimen / Unknown 2024 3:44 AM EDT 2024 4:22 AM EDT Danny Barr MD POINT OF CARE TEST ORDERABLES Fi nal Result Performing Organization Address [facility] Phone Number HOSPITAL LAB See Below * (ABNORMAL) proBNP, N-terminal (2024 12:26 AM EDT) proBNP, N-terminal 486(H) <125 pg/mL 2024 1:09 AM EDT [facility] Blood Blood specimen / Unknown 2024 12:26 AM EDT 2024 12:40 AM EDT Shira Bonilla PA-C LAB BLOOD ORDERABLES Final Res ult [address] [address], [address] [address] * (ABNORMAL) HEPATIC FUNCTION PANEL (2024 12:26 AM EDT) Alkaline Phosphatase 58 45 - 128 U/L 2024 1:09 AM EDT [facility] Aspartate Aminotrans (AST) 41 10 - 55 U/L 2024 1:09 AM T [facility] Alanine Aminotrans (ALT) 83(H) 10 - 55 U/L 2024 1:09 AM T [facility] Bilirubin, Total 1.8(H) 0.2 - 1.0 mg/dL 2024 1:09 AM T [facility] Protein, Total 7.1 6.3 - 8.3 g/dL 2024 1:09 AM [facility] Albumin 2.2(L) 3.4 - 4.8 g/dL 2024 1:09 AM [facility] Bilirubin, Direct 1.2(H) 0 - 0.2 mg/dL 2024 1:09 AM [facility] Globulin 4.9(H) 1.5 - 3.9 g/dL 2024 1:09 AM [facility] Albumin/Globulin Ratio 0.4(L) 1.0 - 3.0 Ratio 2024 1:09 AM [facility] Blood Blood specimen / Unknown 2024 12:26 AM EDT 2024 12:40 AM EDT Shria Bonilla PA-C LAB BLOOD ORDERABLES Final Res ult [address] [address], [place] [address] * (ABNORMAL) Complete Blood Count, WITHOUT Differential (routine) (2024 12:26 AM EDT) White Blood Cell Count 10.0 4.0 - 11.0 Thou/uL 2024 12:59 AM [facility] Platelet Count 131(L) 150 - 450 Thou/uL 2024 12:59 AM [facility] Hemoglobin 7.9(L) 13.0 - 17.7 g/dL 2024 12:59 AM [facility] Hematocrit 23.8(L) 39.0 - 54.0 % 2024 12:59 AM [facility] Red Blood Cell Count 2.53(L) 4.50 - 6.20 Mil/uL 2024 12:59 AM [facility] MCV 94 80 - 100 fL 2024 12:59 AM [facility] MCH 31.2(H) 27.0 - 31.0 pg 2024 12:59 AM [facility] MCHC 33.2 30.0 - 36.0 g/dL 2024 12:59 AM [facility] RDW 12.2 11.5 - 14.5 % 2024 12:59 AM [facility] MPV 13.3(H) 7.5 - 12.5 fL 2024 12:59 AM [facility] Immature Platelet Fraction 16.5(H) 1.2 - 8.6 % 2024 12:59 AM [facility] Blood Blood specimen / Unknown 2024 12:26 AM EDT 2024 12:40 AM EDT Shira Bonilla PA-C LAB BLOOD [place]AB[place] [address], [place] [address] * Phosphorus (2024 12:26 AM EDT) Phosphorus 4.2 2.7 - 4.5 mg/dL 2024 1:09 AM EDT [facility] Blood Blood specimen / Unknown 2024 12:26 AM EDT 2024 12:40 AM EDT Shira Bonilla PA-C LAB BLOOD ORDERABLES Final Res ult Performing Organization Address City/[facility]/ZIP Co de Phone Number [address] [address], [address] [address] * Magnesium (2024 12:26 AM EDT) Magnesium 2.5 1.6 - 2.7 mg/dL 2024 1:09 AM EDT [facility] Blood Blood specimen / Unknown 2024 12:26 AM EDT 2024 12:40 AM EDT Shira Bonilla PA-C LAB BLOOD ORDERABLES Final Res ult [address] [address], [address] [address] * (ABNORMAL) Basic Metabolic Panel (2024 12:26 AM EDT) Glucose 153(H) 65 - 99 mg/dL 2024 1:09 AM EDT [facility] Comment:Fasting: <100 mg/dL, Non-Fasting: <200 mg/dL (ADA 2005) Blood Urea Nitrogen (BUN) 50(H) 8 - 21 mg/dL 2024 1:09 AM EDT [facility] Creatinine 0.8 0.5 - 1.3 mg/dL 2024 1:09 AM EDT [facility] eGFR >90 >59 2024 1:09 AM [facility] Comment:CKD-EPI (2020) in mL /min/1.73 sq meters. Sodium 144 136 - 145 mmol/L 2024 1:09 AM [facility] Potassium 5.3 3.4 - 5.3 mmol/L 2024 1:09 AM [facility] Chloride 108(H) 98 - 107 mmol/L 2024 1:09 AM [facility] CO2 32 22 - 33 mmol/L 2024 1:09 AM [facility] Anion Gap 4(L) 7 - 17 2024 1:09 AM [facility] Calcium 8.0(L) 8.7 - 10.5 mg/dL 2024 1:09 AM [facility] BUN/Creatinine Ratio 63(H) 10.0 - 25.0 Ratio 2024 1:09 AM [facility] Blood Blood specimen / Unknown 2024 12:26 AM EDT 2024 12:40 AM EDT Shira Bonilla PA-C LAB BLOOD [place]AB[place] [address], [place] [address] * (ABNORMAL) POCT Glucose, Fingerstick (09/14/2024 11:40 PM EDT) POC Glucose 157(H) 65 - 99 mg/dL 2024 4:22 AM EDT Blood specimen / Unknown 09/14/2024 11:40 PM EDT 2024 4:22 AM EDT Danny Barr MD POINT OF CARE TEST ORDERABLES Fi nal Result HOSPITAL LAB See Below * (ABNORMAL) POCT Glucose, Fingerstick (09/14/2024 7:22 PM EDT) POC Glucose 192(H) 65 - 99 mg/dL 09/14/2024 7:24 PM EDT Blood specimen / Unknown 09/14/2024 7:22 PM EDT 09/14/2024 7:24 PM EDT Danny Barr MD POINT OF CARE TEST ORDERABLES Fi nal Result HOSPITAL LAB See Below * Phosphorus (09/14/2024 4:31 PM EDT) [facility] Phosphorus 4.0 2.7 - 4.5 mg/dL 09/14/2024 5:30 PM EDT [facility] Blood Blood specimen / Unknown 09/14/2024 4:31 PM EDT 09/14/2024 5:00 PM EDT Shira Bonilla PA-C LAB BLOOD ORDERABLES Final Res ult Performing Organization Address [facility] [place] [address], [place] [address] * Magnesium (09/14/2024 4:31 PM EDT) [facility] Magnesium 2.4 1.6 - 2.7 mg/dL 09/14/2024 5:30 PM EDT [facility] Blood Blood specimen / Unknown 09/14/2024 4:31 PM EDT 09/14/2024 5:00 PM EDT Shira Bonilla PA-C LAB BLOOD ORDERABLES Final Res ult Performing Organization Address [facility] [place] [address], [place] [address] * (ABNORMAL) Basic Metabolic Panel (09/14/2024 4:31 PM EDT) Pathologist [facility] Glucose 116(H) 65 - 99 mg/dL 09/14/2024 5:30 PM EDT [facility] Comment:Fasting: <100 mg/dL, Non-Fasting: <200 mg/dL (ADA 2004) Blood Urea Nitrogen (BUN) 44(H) 8 - 21 mg/dL 09/14/2024 5:30 PM EDT [facility] Creatinine 0.9 0.5 - 1.3 mg/dL 09/14/2024 5:30 PM [facility] eGFR >90 >59 09/14/2024 5:30 PM [facility] Comment:CKD-EPI (2020) in mL /min/1.73 sq meters. Sodium 146(H) 136 - 145 mmol/L 09/14/2024 5:30 PM [facility] Potassium 5.2 3.4 - 5.3 mmol/L 09/14/2024 5:30 PM [facility] Chloride 109(H) 98 - 107 mmol/L 09/14/2024 5:30 PM [facility] CO2 31 22 - 33 mmol/L 09/14/2024 5:30 PM [facility] Anion Gap 6(L) 7 - 17 09/14/2024 5:30 PM [facility] Calcium 7.7(L) 8.7 - 10.5 mg/dL 09/14/2024 5:30 PM [facility] BUN/Creatinine Ratio 49(H) 10.0 - 25.0 Ratio 09/14/2024 5:30 PM [facility] Blood Blood specimen / Unknown 09/14/2024 4:31 PM EDT 09/14/2024 5:00 PM EDT us Shira Bonilla PA-C LAB BLOOD ORDERABLES Final Res ult [address] [address], [address] [address] * (ABNORMAL) POCT Glucose, Fingerstick (09/14/2024 3:36 PM EDT) POC Glucose 134(H) 65 - 99 mg/dL 09/14/2024 3:44 PM EDT Blood specimen / Unknown 09/14/2024 3:36 PM EDT 09/14/2024 3:44 PM EDT us Danny Barr MD POINT OF CARE TEST ORDERABLES Fi nal Result Performing Organization Address [facility] LAB See Below * (ABNORMAL) POCT Glucose, Fingerstick (09/14/2024 11:19 AM EDT) POC Glucose 163(H) 65 - 99 mg/dL 09/14/2024 11:22 AM EDT Blood specimen / Unknown 09/14/2024 11:19 AM EDT 09/14/2024 11:22 AM EDT us Danny Barr MD POINT OF CARE TEST ORDERABLES Fi nal Result Performing Organization [facility] LAB See Below * (ABNORMAL) POCT Glucose, Fingerstick (09/14/2024 8:08 AM EDT) POC Glucose 147(H) 65 - 99 mg/dL 09/14/2024 8:13 AM EDT Blood specimen / Unknown 09/14/2024 8:08 AM EDT 09/14/2024 8:12 AM EDT us Danny Barr MD POINT OF CARE TEST ORDERABLES Fi nal Result Performing Organization Address [facility] LAB See Below * (ABNORMAL) POCT Glucose, Fingerstick (09/14/2024 3:13 AM EDT) POC Glucose 148(H) 65 - 99 mg/dL 09/14/2024 4:10 AM EDT Blood specimen / Unknown 09/14/2024 3:13 AM EDT 09/14/2024 4:10 AM EDT us Danny Barr MD POINT OF CARE TEST ORDERABLES Fi nal Result Performing Organization Address [facility] LAB See Below * (ABNORMAL) HEPATIC FUNCTION PANEL (09/14/2024 12:11 AM EDT) Alkaline Phosphatase 59 45 - 128 U/L 09/14/2024 1:57 AM EDT [facility] Aspartate Aminotrans (AST) 38 10 - 55 U/L 09/14/2024 1:57 AM EDT [facility] Alanine Aminotrans (ALT) 94(H) 10 - 55 U/L 09/14/2024 1:57 AM EDT [facility] Bilirubin, Total 2.4(H) 0.2 - 1.0 mg/dL 09/14/2024 1:57 AM EDT [facility] Protein, Total 7.2 6.3 - 8.3 g/dL 09/14/2024 1:57 AM EDT [facility] Albumin 2.3(L) 3.4 - 4.8 g/dL 09/14/2024 1:57 AM EDT [facility] Bilirubin, Direct 1.6(H) 0 - 0.2 mg/dL 09/14/2024 1:57 AM EDT [facility] Globulin 4.9(H) 1.5 - 3.9 g/dL 09/14/2024 1:57 AM [facility] Albumin/Globulin Ratio 0.5(L) 1.0 - 3.0 Ratio 09/14/2024 1:57 AM T [facility] Blood Blood specimen / Unknown 09/14/2024 12:11 AM EDT 09/14/2024 1:21 AM EDT us Daiana Guzman PA-C LAB BLOOD ORDERABLES Final R esult [address] [address], [address] [address] * Phosphorus (09/14/2024 12:11 AM EDT) Pathologist [facility] Phosphorus 3.3 2.7 - 4.5 mg/dL 09/14/2024 1:57 AM EDT [facility] Blood Blood specimen / Unknown 09/14/2024 12:11 AM EDT 09/14/2024 1:21 AM EDT us Daiana VELASCO-Ryan LAB BLOOD ORDERABLES Final R esult Performing Organization Address City/[facility]/[place] [address], [place] [address] * Magnesium (09/14/2024 12:11 AM EDT) Magnesium 2.4 1.6 - 2.7 mg/dL 09/14/2024 1:57 AM EDT [facility] Blood Blood specimen / Unknown 09/14/2024 12:11 AM EDT 09/14/2024 1:21 AM EDT us Daiana VELASCO-Ryan LAB BLOOD ORDERABLES Final R esult Performing Organization Address [facility] [place] [address], [place] [address] * (ABNORMAL) Basic Metabolic Panel (09/14/2024 12:11 AM EDT) Glucose 133(H) 65 - 99 mg/dL 09/14/2024 1:57 AM T [facility] Comment:Fasting: <100 mg/dL, Non-Fasting: <200 mg/dL (ADA 2004) Blood Urea Nitrogen (BUN) 39(H) 8 - 21 mg/dL 09/14/2024 1:57 AM T [facility] Creatinine 0.8 0.5 - 1.3 mg/dL 09/14/2024 1:57 AM [facility] eGFR >90 >59 09/14/2024 1:57 AM T [facility] Comment:CKD-EPI (2020) in mL /min/1.73 sq meters. Sodium 146(H) 136 - 145 mmol/L 09/14/2024 1:57 AM T [facility] Potassium 5.6(H) 3.4 - 5.3 mmol/L 09/14/2024 1:57 AM T [facility] Chloride 110(H) 98 - 107 mmol/L 09/14/2024 1:57 AM [facility] CO2 32 22 - 33 mmol/L 09/14/2024 1:57 AM [facility] Anion Gap 4(L) 7 - 17 09/14/2024 1:57 AM [facility] Calcium 7.8(L) 8.7 - 10.5 mg/dL 09/14/2024 1:57 AM [facility] BUN/Creatinine Ratio 49(H) 10.0 - 25.0 Ratio 09/14/2024 1:57 AM [facility] Blood Blood specimen / Unknown 09/14/2024 12:11 AM EDT 09/14/2024 1:21 AM EDT Daiana Guzman PA-C LAB BLOOD ORDERABLES Final R esult [address] [address], [address] [address] * (ABNORMAL) COMPLETE BLOOD COUNT, WITHOUT DIFFERENTIAL (09/14/2024 12:11 AM EDT) White Blood Cell Count 10.2 4.0 - 11.0 Thou/uL 09/14/2024 1:46 AM [facility] Platelet Count 97(L) 150 - 450 Thou/uL 09/14/2024 1:46 AM [facility] Hemoglobin 8.4(L) 13.0 - 17.7 g/dL 09/14/2024 1:46 AM [facility] Hematocrit 25.9(L) 39.0 - 54.0 % 09/14/2024 1:46 AM [facility] Red Blood Cell Count 2.69(L) 4.50 - 6.20 Mil/uL 09/14/2024 1:46 AM [facility] MCV 96 80 - 100 fL 09/14/2024 1:46 AM [facility] MCH 31.2(H) 27.0 - 31.0 pg 09/14/2024 1:46 AM [facility] MCHC 32.4 30.0 - 36.0 g/dL 09/14/2024 1:46 AM EDT [facility] RDW 12.6 11.5 - 14.5 % 09/14/2024 1:46 AM EDT [facility] MPV 13.4(H) 7.5 - 12.5 fL 09/14/2024 1:46 AM EDT [facility] Immature Platelet Fraction 15.7(H) 1.2 - 8.6 % 09/14/2024 1:46 AM EDT [facility] Blood Blood specimen / Unknown 09/14/2024 12:11 AM EDT 09/14/2024 1:21 AM EDT Daiana Guzman PA-C LAB BLOOD ORDERABLES Final R esult Performing Organization Address [facility] [place] [address], [place] [address] * (ABNORMAL) POCT Glucose, Fingerstick (09/14/2024 12:01 AM EDT) POC Glucose 148(H) 65 - 99 mg/dL 09/14/2024 12:15 AM EDT Blood specimen / Unknown 09/14/2024 12:01 AM EDT 09/14/2024 12:15 AM EDT Danny Barr MD POINT OF CARE TEST ORDERABLES Fi nal Result HOSPITAL LAB See Below * ECG 12 lead (09/13/2024 8:47 PM EDT) Systolic BP 132 mmHg EKG [facility] Diastolic BP 64 mmHg EKG [facility] Ventricular rate 109 BPM EKG [facility] Atrial rate 109 BPM EKG [facility] P-R interval 114 ms EKG [facility] QRS duration 110 ms EKG [facility] Q-T interval 356 ms EKG [facility] QTC calculation (Bazett) 479 ms EKG [facility] P axis 59 degrees EKG [facility] R axis 77 degrees EKG [facility] T axis 59 degrees EKG [facility] 09/13/2024 8:47 PM EDT Narrative EKG [facility] - 09/13/2024 9:24 PM EDT Sinus tachycardia with Premature supraventricular complexes Right bundle branch block Abnormal ECG When compared with ECG of 13-Sep-2024 08:41, No significant change was found Confirmed by MD Seymour Komsu ([id number]) on 09/13/2024 9:24:19 PM Procedure Note Edel Seymour MD - 09/13/2024 Sinus tachycardia with Premature supraventricular complexes Right bundle branch block Abnormal ECG When compared with ECG of 13-Sep-2024 08:41, No significant change was found Confirmed by MD Seymour Komsu ([id number]) on 09/13/2024 9:24:19 PM us Kelly Rodriguez MD ECG ORDERABLES Final Resul t EKG [facility] * (ABNORMAL) POCT Glucose, Fingerstick (09/13/2024 7:51 PM EDT) POC Glucose 145(H) 65 - 99 mg/dL 09/13/2024 7:52 PM EDT Blood specimen / Unknown 09/13/2024 7:51 PM EDT 09/13/2024 7:52 PM EDT us Danny Barr MD POINT OF CARE TEST ORDERABLES Fi nal Result HOSPITAL LAB See Below * (ABNORMAL) POCT Glucose, Fingerstick (09/13/2024 4:09 PM EDT) POC Glucose 140(H) 65 - 99 mg/dL 09/13/2024 4:21 PM EDT Blood specimen / Unknown 09/13/2024 4:09 PM EDT 09/13/2024 4:21 PM EDT Danny Barr MD POINT OF CARE TEST ORDERABLES Fi nal Result HOSPITAL LAB See Below * Phosphorus (09/13/2024 2:20 PM EDT) Phosphorus 3.8 2.7 - 4.5 mg/dL 09/13/2024 3:41 PM EDT [facility] Blood Blood specimen / Unknown 09/13/2024 2:20 PM EDT 09/13/2024 3:18 PM EDT Daiana Guzman PA-C LAB BLOOD ORDERABLES Final R esult Performing Organization Address City/[facility]/[place] [address], [place] [address] * Magnesium (09/13/2024 2:20 PM EDT) Magnesium 2.5 1.6 - 2.7 mg/dL 09/13/2024 3:41 PM EDT [facility] Blood Blood specimen / Unknown 09/13/2024 2:20 PM EDT 09/13/2024 3:18 PM EDT Daiana Guzman PA-C LAB BLOOD ORDERABLES Final R esult Performing Organization Address City/[facility] [place] [address], [place] [address] * (ABNORMAL) Basic Metabolic Panel (09/13/2024 2:20 PM EDT) Glucose 109(H) 65 - 99 mg/dL 09/13/2024 3:41 PM EDT [facility] Comment:Fasting: <100 mg/dL, Non-Fasting: <200 mg/dL (ADA 2005) Blood Urea Nitrogen (BUN) 35(H) 8 - 21 mg/dL 09/13/2024 3:41 PM EDT [facility] Creatinine 0.8 0.5 - 1.3 mg/dL 09/13/2024 3:41 PM EDT [facility] eGFR >90 >59 09/13/2024 3:41 PM EDT [facility] Comment:CKD-EPI (2020) in mL /min/1.73 sq meters. Sodium 144 136 - 145 mmol/L 09/13/2024 3:41 PM EDT [facility] Potassium 4.7 3.4 - 5.3 mmol/L 09/13/2024 3:41 PM EDT [facility] Chloride 107 98 - 107 mmol/L 09/13/2024 3:41 PM EDT [facility] CO2 32 22 - 33 mmol/L 09/13/2024 3:41 PM EDT [facility] Anion Gap 5(L) 7 - 17 09/13/2024 3:41 PM EDT [facility] Calcium 7.9(L) 8.7 - 10.5 mg/dL 09/13/2024 3:41 PM EDT [facility] BUN/Creatinine Ratio 44(H) 10.0 - 25.0 Ratio 09/13/2024 3:41 PM EDT [facility] Blood Blood specimen / Unknown 09/13/2024 2:20 PM EDT 09/13/2024 3:18 PM EDT Daiana Guzman PA-C LAB BLOOD ORDERABLES Final R esult Performing Organization Address City/[facility]/[place] [address], [place] [address] * (ABNORMAL) POCT Glucose, Fingerstick (09/13/2024 11:57 AM EDT) POC Glucose 135(H) 65 - 99 mg/dL 09/13/2024 12:01 PM EDT Blood specimen / Unknown 09/13/2024 11:57 AM EDT 09/13/2024 12:01 PM EDT Danny Barr MD POINT OF CARE TEST ORDERABLES Fi nal Result HOSPITAL LAB See Below * ECG 12 lead (09/13/2024 8:41 AM EDT) Pathologist [facility] [place] Systolic BP 170 mmHg EKG [facility] Diastolic BP 84 mmHg EKG [facility] Ventricular rate 113 BPM EKG [facility] Atrial rate 113 BPM EKG [facility] P-R interval 114 ms EKG [facility] QRS duration 118 ms EKG [facility] Q-T interval 360 ms EKG [facility] QTC calculation (Bazett) 493 ms EKG [facility] P axis 58 degrees EKG [facility] R axis 79 degrees EKG [facility] T axis 56 degrees EKG [facility] 09/13/2024 8:41 AM EDT Narrative [facility] - 09/13/2024 8:56 AM EDT Sinus tachycardia with Premature atrial complexes Possible Left atrial enlargement Right bundle branch block Abnormal ECG When compared with ECG of 11-Sep-2024 07:43, Premature atrial complexes are now Present ST no longer depressed in Anterior leads Confirmed by MD Seymour Komsu ([id number]) on 09/13/2024 8:55:59 AM Procedure Note Edel Seymour MD - 09/13/2024 Sinus tachycardia with Premature atrial complexes Possible Left atrial enlargement Right bundle branch block Abnormal ECG When compared with ECG of 11-Sep-2024 07:43, Premature atrial complexes are now Present ST no longer depressed in Anterior leads Confirmed by MD Seymour Komsu ([id number]) on 09/13/2024 8:55:59 AM us Danny Barr MD ECG ORDERABLES Final Result [facility] * (ABNORMAL) POCT Glucose, Fingerstick (09/13/2024 7:29 AM EDT) Pathologist [facility] [place] POC Glucose 109(H) 65 - 99 mg/dL 09/13/2024 7:45 AM EDT Blood specimen / Unknown 09/13/2024 7:29 AM EDT 09/13/2024 7:45 AM EDT Danny Barr MD POINT OF CARE TEST ORDERABLES Fi nal Result Performing Organization Address [facility] Phone Number [facility] See Below * (ABNORMAL) POCT Glucose, Fingerstick (09/13/2024 3:30 AM EDT) POC Glucose 128(H) 65 - 99 mg/dL 09/13/2024 3:59 AM EDT Blood specimen / Unknown 09/13/2024 3:30 AM EDT 09/13/2024 3:59 AM EDT Danny Barr MD POINT OF CARE TEST ORDERABLES Fi nal Result Performing Organization Address [facility] Number [facility] See Below * (ABNORMAL) proBNP, N-terminal (09/13/2024 12:27 AM EDT) proBNP, N-terminal 2,219(H) <125 pg/mL 09/13/2024 9:46 AM EDT [facility] 09/13/2024 12:2 7 AM EDT 09/13/2024 12:54 AM EDT Marie Chamberlain PA-C LAB BLOOD ORDERABLES Final Result Performing Organization Address [facility] [place] [address], [place] [phone] * (ABNORMAL) POCT Glucose, Fingerstick (09/13/2024 12:27 AM EDT) POC Glucose 112(H) 65 - 99 mg/dL 09/13/2024 12:27 AM EDT Blood specimen / Unknown 09/13/2024 12:27 AM EDT 09/13/2024 12:28 AM EDT Danny Barr MD POINT OF CARE TEST ORDERABLES Fi nal Result Performing Organization Address [facility] Co de Phone Number HOSPITAL LAB See Below * Phosphorus (Routine) (09/13/2024 12:27 AM EDT) Phosphorus 3.2 2.7 - 4.5 mg/dL 09/13/2024 1:25 AM EDT [facility] Blood Blood specimen / Unknown 09/13/2024 12:27 AM EDT 09/13/2024 12:54 AM EDT Marie VELASCO-Ryan LAB BLOOD ORDERABLES Final Result Performing Organization Address [facility]/[place] [address], [place] [address] * Magnesium (Routine) (09/13/2024 12:27 AM EDT) Magnesium 2.7 1.6 - 2.7 mg/dL 09/13/2024 1:25 AM EDT [facility] Blood Blood specimen / Unknown 09/13/2024 12:27 AM EDT 09/13/2024 12:54 AM EDT Marie VELASCO-Ryan LAB BLOOD ORDERABLES Final Result Performing Organization Address [facility] [place] [address], [place] [address] * (ABNORMAL) Basic Metabolic Panel (Routine) (09/13/2024 12:27 AM EDT) Glucose 110(H) 65 - 99 mg/dL 09/13/2024 1:25 AM EDT [facility] Comment:Fasting: <100 mg/dL, Non-Fasting: <200 mg/dL (ADA 2005) Blood Urea Nitrogen (BUN) 35(H) 8 - 21 mg/dL 09/13/2024 1:25 AM EDT [facility] Creatinine 0.8 0.5 - 1.3 mg/dL 09/13/2024 1:25 AM EDT [facility] eGFR >90 >59 09/13/2024 1:25 AM [facility] Comment:CKD-EPI (2020) in mL /min/1.73 sq meters. Sodium 145 136 - 145 mmol/L 09/13[facility]2024 [facility] Potassium 5.4(H) 3.4 - 5.3 mmol/L 09/13/2024 1:25 AM [facility] Chloride 112(H) 98 - 107 mmol/L 09/13/2024 1:25 AM [facility] CO2 31 22 - 33 mmol/L 09/13/2024 1:25 AM [facility] Anion Gap 2(L) 7 - 17 09/13/2024 1:25 AM [facility] Calcium 7.2(L) 8.7 - 10.5 mg/dL 09/13/2024 1:25 AM [facility] BUN/Creatinine Ratio 44(H) 10.0 - 25.0 Ratio 09/13/2024 1:25 AM [facility] Blood Blood specimen / Unknown 09/13/2024 12:27 AM EDT 09/13/2024 12:54 AM EDT us Marie Chamberlain PA-C LAB BLOOD [place]AB[place] [address], [place] [address] * (ABNORMAL) Complete Blood Count, WITHOUT Differential (routine) (09/13/2024 12:27 AM EDT) White Blood Cell Count 7.9 4.0 - 11.0 Thou/uL 09/13/2024 1:13 AM [facility] Platelet Count 68(L) 150 - 450 Thou/uL 09/13/2024 1:13 AM [facility] Hemoglobin 7.8(L) 13.0 - 17.7 g/dL 09/13/2024 1:13 AM [facility] Hematocrit 24.5(L) 39.0 - 54.0 % 09/13/2024 1:13 AM [facility] Red Blood Cell Count 2.52(L) 4.50 - 6.20 Mil/uL 09/13/2024 1:13 AM [facility] MCV 97 80 - 100 fL 09/13/2024 1:13 AM [facility] MCH 31.0 27.0 - 31.0 pg 09/13/2024 1:13 AM [facility] MCHC 31.8 30.0 - 36.0 g/dL 09/13/2024 1:13 AM [facility] RDW 13.2 11.5 - 14.5 % 09/13/2024 1:13 AM [facility] MPV 12.9(H) 7.5 - 12.5 fL 09/13/2024 1:13 AM [facility] nRBC 0.3(H) 0.0 - 0.1 /100 WBC 09/13/2024 1:13 AM [facility] nRBC, Absolute 0.02 0.00 - 0.02 Thou/uL 09/13/2024 1:13 AM [facility] Immature Platelet Fraction 12.2(H) 1.2 - 8.6 % 09/13/2024 1:13 AM [facility] Blood Blood specimen / Unknown 09/13/2024 12:27 AM EDT 09/13/2024 12:54 AM EDT Marie Chamberlain PA-C LAB BLOOD ORDERABLES Final Result Performing Organization Address City/State/[facility] Co de Phone Number [address] [address], [address] [address] * MRI Brain w w/o contrast (09/13/2024 12:03 AM EDT) Anatomical Region Laterality Modality Head Magnetic Resonan ce 09/12/2024 11:0 7 PM EDT Impressions 09/13/2024 4:54 PM EDT 1. Similar pattern of inflammatory change (better described on CTA head and neck performed same day) about the left orbit with thrombus within the enlarged left superior ophthalmic vein, nonocclusive thrombus in the cavernous sinus bilaterally and venous structures about the middle cranial fossa as noted above (not conspicuous on CTA head and neck), with nonocclusive thrombus bilateral internal jugular veins, etiology is uncertain. 2. Hyperintense signal along the sulci of the frontoparietal and occipital lobes without enhancement. 3. Nonenhancing debris demonstrating diffusion restriction and slight FLAIR hyperintensity within the occipital horns with trace hemosiderin. 4. Right-sided otomastoiditis. 5. Right temporal scalp and temporalis contusion. Uncertain etiology of Constellation of findings as above. Hematology oncology evaluation workup is recommended with CSF sampling also recommended. Differential considerations are broad. Narrative 09/13/2024 4:54 PM EDT MRI BRAIN WITH AND WITHOUT CONTRAST PERFORMED: 09/12/2024. HISTORY: 63-year-old male stability scan for cavernous venous thrombosis COMPARISON: ??CTA head and neck same date, CT head 09/08/2024, MR brain outside facility 09/07/2024 TECHNIQUE: ??Multiplanar, multisequence MR images of the brain were obtained prior to and following the uneventful intravenous administration of 10 mL of Gadavist. FINDINGS: Diffusion restriction involving the superior ophthalmic vein, confluence of the greater petrosal and cavernous sinuses bilaterally, left superficial middle cerebral vein and sphenoparietal sinus and to a lesser extent the right superficial middle cerebral vein and sphenoparietal sinus with additional diffusion restriction involving the right greater than left venous drainage structures of the temporalis muscle. Layering debris demonstrates diffusion restriction the occipital horns with trace hemosiderin and is nonenhancing. Filling defects within the bilateral cavernous sinuses without complete loss of postcontrast enhancement with filling defects within the right greater than left proximal internal jugular veins noted on postcontrast imaging. Inflammatory changes involving the left orbit are better described on recent CTA head and neck. Redemonstration right temporalis contusion and overlying scalp contusion. No acute infarction or parenchymal hemorrhage. No pachymeningitis or leptomeningitis. Flow related signal loss within the major intracranial vasculature is preserved with normal postcontrast enhancement of the same. Dural venous sinuses are patent. Patchy and nodular enhancement throughout the opacified right mastoid air cells with peripheral enhancement throughout the right tympanic cavity, which is also opacified. Debris in the right EAC. Patchy fluid throughout the left mastoid air cells with left tympanic cavity clear. No associated enhancement. The craniocervical junction is normal. T2 FLAIR hyperintense signal abnormality throughout the frontoparietal lobes and extending into the occipital lobes without associated enhancement. Generalized volume loss with commensurate sulcal and ventricular prominence, with coarctation of the frontal horns. The basilar cisterns are normal. ?? Trace mucosal thickening throughout the paranasal sinuses with small debris/fluid in the sphenoid sinuses and pneumatized lateral recesses. Procedure Note Lance Holloway MD - 09/13/2024 MRI BRAIN WITH AND WITHOUT CONTRAST PERFORMED: 09/12/2024. HISTORY: 63-year-old male stability scan for cavernous venous thrombosis COMPARISON: CTA head and neck same date, CT head 09/08/2024, MR brain outside facility 09/07/2024 TECHNIQUE: Multiplanar, multisequence MR images of the brain were obtained prior to and following the uneventful intravenous administration of 10 mL of Gadavist. FINDINGS: Diffusion restriction involving the superior ophthalmic vein, confluence of the greater petrosal and cavernous sinuses bilaterally, left superficial middle cerebral vein and sphenoparietal sinus and to a lesser extent the right superficial middle cerebral vein and sphenoparietal sinus with additional diffusion restriction involving the right greater than left venous drainage structures of the temporalis muscle. Layering debris demonstrates diffusion restriction the occipital horns with trace hemosiderin and is nonenhancing. Filling defects within the bilateral cavernous sinuses without complete loss of postcontrast enhancement with filling defects within the right greater than left proximal internal jugular veins noted on postcontrast imaging. Inflammatory changes involving the left orbit are better described on recent CTA head and neck. Redemonstration right temporalis contusion and overlying scalp contusion. No acute infarction or parenchymal hemorrhage. No pachymeningitis or leptomeningitis. Flow related signal loss within the major intracranial vasculature is preserved with normal postcontrast enhancement of the same. Dural venous sinuses are patent. Patchy and nodular enhancement throughout the opacified right mastoid air cells with peripheral enhancement throughout the right tympanic cavity, which is also opacified. Debris in the right EAC. Patchy fluid throughout the left mastoid air cells with left tympanic cavity clear. No associated enhancement. The craniocervical junction is normal. T2 FLAIR hyperintense signal abnormality throughout the frontoparietal lobes and extending into the occipital lobes without associated enhancement. Generalized volume loss with commensurate sulcal and ventricular prominence, with coarctation of the frontal horns. The basilar cisterns are normal. Trace mucosal thickening throughout the paranasal sinuses with small debris/fluid in the sphenoid sinuses and pneumatized lateral recesses. IMPRESSION: 1. Similar pattern of inflammatory change (better described on CTA head and neck performed same day) about the left orbit with thrombus within the enlarged left superior ophthalmic vein, nonocclusive thrombus in the cavernous sinus bilaterally and venous structures about the middle cranial fossa as noted above (not conspicuous on CTA head and neck), with nonocclusive thrombus bilateral internal jugular veins, etiology is uncertain. 2. Hyperintense signal along the sulci of the frontoparietal and occipital lobes without enhancement. 3. Nonenhancing debris demonstrating diffusion restriction and slight FLAIR hyperintensity within the occipital horns with trace hemosiderin. 4. Right-sided otomastoiditis. 5. Right temporal scalp and temporalis contusion. Uncertain etiology of Constellation of findings as above. Hematology oncology evaluation workup is recommended with CSF sampling also recommended. Differential considerations are broad. Marie Chamberlain PA-C IMG MRI ORDERABLES Final R esult * (ABNORMAL) POCT Glucose, Fingerstick (09/12/2024 7:57 PM EDT) POC Glucose 132(H) 65 - 99 mg/dL 09/13/2024 12:25 AM EDT Blood specimen / Unknown 09/12/2024 7:57 PM EDT 09/13/2024 12:25 AM EDT Danny Barr MD POINT OF CARE TEST ORDERABLES nal Result [facility] See Below * (ABNORMAL) POCT Glucose, Fingerstick (09/12/2024 4:05 PM EDT) POC Glucose 151(H) 65 - 99 mg/dL 09/12/2024 4:06 PM EDT Blood specimen / Unknown 09/12/2024 4:05 PM EDT 09/12/2024 4:06 PM EDT Danny Barr MD POINT OF CARE TEST ORDERABLES Fi nal Result Performing Organization Address [facility] Phone Number [facility] See Below * (ABNORMAL) POCT Glucose, Fingerstick (09/12/2024 11:30 AM EDT) POC Glucose 147(H) 65 - 99 mg/dL 09/12/2024 11:40 AM EDT Blood specimen / Unknown 09/12/2024 11:30 AM EDT 09/12/2024 11:40 AM EDT Danny Barr MD POINT OF CARE TEST ORDERABLES Fi nal Result Performing Organization Address [facility] Phone Number [facility] See Below * (ABNORMAL) POCT Glucose, Fingerstick (09/12/2024 7:37 AM EDT) POC Glucose 145(H) 65 - 99 mg/dL 09/12/2024 7:42 AM EDT Blood specimen / Unknown 09/12/2024 7:37 AM EDT 09/12/2024 7:42 AM EDT Danny Barr MD POINT OF CARE TEST ORDERABLES Fi nal Result Performing Organization Address [facility] Number HOSPITAL LAB See Below * VAS VENOUS DUPLEX ARM (DVT)-BILATERAL (09/12/2024 7:26 AM EDT) Anatomical Region Laterality Modality Ultrasound 09/12/2024 9:00 AM EDT Narrative 09/12/2024 9:42 AM EDT Table formatting from the original result was not included. ?? Department: [facility] Patient: [id number] (MARIAH MASTERSON) ?? Patient Location: ..[id number] CPT Code: 69240 ICD-9: ?? Referring Physician: ONOFRE BARNETT Impression Bilaterally, the duplex ultrasound of the upper extremities demonstrates normal Doppler flow with no thrombus seen on patterson scale/color flow image. Findings are not consistent [...] ?? Electronically Signed by: Mckenna Benavidez MD FREDY RVT on 2024-09-12 09:42:42 AM End of Report Procedure Note Mckenna Benavidez MD - 09/12/2024 Department: [facility] Patient: [id number] (MARIAH MASTERSON) Patient Location: ..[place] [address].[facility] CPT Code: 28695 ICD-9: Referring Physician: ONOFRE BARNETT Impression Bilaterally, the duplex ultrasound of the upper extremities demonstratesnormal Doppler flow with no thrombus seen on patterson scale/color flow image.Findings are not consistent with [...] by: Mckenna Benavidez MD MBA RVT on :42:42 AM End of Report Onofre Barnett PA-C VASCULAR LAB ORDERABLES [facility] Result * (ABNORMAL) POCT Glucose, Fingerstick (09/12/2024 3:28 AM EDT) POC Glucose 144(H) 65 - 99 mg/dL 09/12/2024 3:42 AM EDT Blood specimen / Unknown 09/12/2024 3:28 AM EDT 09/12/2024 3:42 AM EDT Danny Barr MD POINT OF CARE TEST ORDERABLES Fi nal Result [facility]OS[facility]ITAL [facility] See Below * CTA Head and Neck W/O and With IV Contrast (09/12/2024 1:43 AM EDT) Anatomical Region Laterality Modality CTA Head and Neck Computed Tomog nick 09/12/2024 1:22 AM EDT Impressions 09/13/2024 1:55 PM EDT 1. Similar appearance of soft tissue changes about the left orbit without definitive filling defect within the left cavernous sinus. 2. No acute intracranial process. 3.Intact anterior and posterior circulations without dissection, major branch occlusion, aneurysm, or vascular malformation. 4. No dissection or high grade stenosis of the carotid or vertebral systems. 5. Scattered groundglass opacities and pneumatoceles imaged lungs with subsegmental foci of consolidation, correlate clinically, infectious versus inflammatory. This CT examination was performed using dose optimization techniques as appropriate, variously including the following: * ??Automated exposure control * ??Adjustment of mA and/or kV according to patient size (this includes techniques or standardized protocols for targeted exams where dose is matched to indication/reason for exam; i.e. extremities or head) * ??Use of iterative reconstruction technique Narrative 09/13/2024 1:[address] ANGIOGRAM HEAD AND NECK DATE: 09/12/2024 12:22 AM CDT HISTORY: 63-year-old male, stability scan for cavernous sinus thrombosis COMPARISON: CT head 09/08/2024, MR brain outside facility 09/07/2024, CT head 09/06/2024, CT head 11/10/2016 TECHNIQUE: ??Multiple, noncontrasted axial CT images were obtained from the skull base to the cranial vertex. ??CT angiography of the head and neck was performed following the uneventful intravenous administration of 40 mL of Omnipaque 350 intravenous contrast, multiple axial images were obtained from the aortic arch to the cranial vertex. 3D post processing of CTA images was performed/reconstructed on a separate workstation. FINDINGS: ?? CT HEAD WITHOUT: Noncontrasted images demonstrate no evidence of abnormal intra- or extra-axial fluid collections, midline shift, or mass effect. ?? Patterson-white differentiation is maintained. Periventricular and supraventricular white matter low-attenuation characteristic of chronic microvascular white matter ischemic disease. Generalized volume loss with commensurate sulcal and ventricular prominence. Coarctation of the frontal horns bilaterally. The basilar cisterns are normal. Atherosclerotic ossification outlines cavernous segments of the bilateral ICA and distal vertebral arteries. Again demonstrated is subtle asymmetric fat reticulation/stranding of the intra and extraconal compartments of the left orbit as compared to the right and most pronounced along the lateral and inferior extraconal space. Subtle asymmetric thickening of the muscle bodies of the left extraocular musculature as compared to the right. Persistent enlargement of the left superior ophthalmic vein persistent asymmetric edema of the left lacrimal gland and apparatus. Symmetric fat reticulation bilateral face with scattered dermal calcifications again noted asymmetric enlargement of the right temporalis as compared to the left. CT HEAD WITH: Post contrast images demonstrate no evidence of abnormal intracranial enhancement. No lateral convex bowing of the left cavernous sinus or definitive evidence of filling defect within the same. CTA HEAD: The vertebral arteries are codominant. Nonflow limiting atherosclerotic plaque within the left vertebral artery. Bilateral PICA are normal in course and caliber. The basilar artery gives off normal bilateral AICA, superior cerebellar and right posterior cerebral arteries. Small caliber left P1 segment. Moderate caliber left posterior communicating artery right posterior communicating artery is not visualized. Nonflow limiting atherosclerotic plaque within the cavernous segments of the bilateral ICA. The internal carotid arteries are otherwise normal from their distal cervical segments to the carotid terminus. The middle cerebral arteries and anterior cerebral arteries are normal. There is a small caliber anterior communicating artery. There is normal opacification of the major dural venous sinuses. CTA NECK: The take off of the great vessels is conventional. Significant burden of mixed plaque throughout the aortic arch, origin of the great vessels and proximal great vessels as well as at the origin of the vertebral arteries, all nonflow limiting. Significant burden of mixed plaque at the carotid bulb/bifurcation, bilaterally and without flow-limiting stenosis. The origins of the common carotid and vertebral arteries are patent. The bilateral CCA, ICA and ECA are otherwise normal in course and caliber. The vertebral arteries are codominant. Vertebral arteries are normal in course and caliber.. The soft tissues of the neck are within normal limits. Patchy groundglass opacities throughout the imaged lungs with scattered foci of subsegmental consolidation with multiple subcentimeter pneumatoceles. Degenerative changes of the imaged spine. No acute osseous process. Oral enteric and endotracheal tubes are present. Procedure Note Lance Holloway MD - 09/13/2024 CT ANGIOGRAM HEAD AND NECK DATE: 09/12/2024 12:22 AM CDT HISTORY: 63-year-old male, stability scan for cavernous sinus thrombosis COMPARISON: CT head 09/08/2024, MR brain outside facility 09/07/2024, CT head 09/06/2024, CT head 11/10/2016 TECHNIQUE: Multiple, noncontrasted axial CT images were obtained from the skull base to the cranial vertex. CT angiography of the head and neck was performed following the uneventful intravenous administration of 40 mL of Omnipaque 350 intravenous contrast, multiple axial images were obtained from the aortic arch to the cranial vertex. 3D post processing of CTA images was performed/reconstructed on a separate workstation. FINDINGS: CT HEAD WITHOUT: Noncontrasted images demonstrate no evidence of abnormal intra- or extra-axial fluid collections, midline shift, or mass effect. Patterson-white differentiation is maintained. Periventricular and supraventricular white matter low-attenuation characteristic of chronic microvascular white matter ischemic disease. Generalized volume loss with commensurate sulcal and ventricular prominence. Coarctation of the frontal horns bilaterally. The basilar cisterns are normal. Atherosclerotic ossification outlines cavernous segments of the bilateral ICA and distal vertebral arteries. Again demonstrated is subtle asymmetric fat reticulation/stranding of the intra and extraconal compartments of the left orbit as compared to the right and most pronounced along the lateral and inferior extraconal space. Subtle asymmetric thickening of the muscle bodies of the left extraocular musculature as compared to the right. Persistent enlargement of the left superior ophthalmic vein persistent asymmetric edema of the left lacrimal gland and apparatus. Symmetric fat reticulation bilateral face with scattered dermal calcifications again noted asymmetric enlargement of the right temporalis as compared to the left. CT HEAD WITH: Post contrast images demonstrate no evidence of abnormal intracranial enhancement. No lateral convex bowing of the left cavernous sinus or definitive evidence of filling defect within the same. CTA HEAD: The vertebral arteries are codominant. Nonflow limiting atherosclerotic plaque within the left vertebral artery. Bilateral PICA are normal in course and caliber. The basilar artery gives off normal bilateral AICA, superior cerebellar and right posterior cerebral arteries. Small caliber left P1 segment. Moderate caliber left posterior communicating artery right posterior communicating artery is not visualized. Nonflow limiting atherosclerotic plaque within the cavernous segments of the bilateral ICA. The internal carotid arteries are otherwise normal from their distal cervical segments to the carotid terminus. The middle cerebral arteries and anterior cerebral arteries are normal. There is a small caliber anterior communicating artery. There is normal opacification of the major dural venous sinuses. CTA NECK: The take off of the great vessels is conventional. Significant burden of mixed plaque throughout the aortic arch, origin of the great vessels and proximal great vessels as well as at the origin of the vertebral arteries, all nonflow limiting. Significant burden of mixed plaque at the carotid bulb/bifurcation, bilaterally and without flow-limiting stenosis. The origins of the common carotid and vertebral arteries are patent. The bilateral CCA, ICA and ECA are otherwise normal in course and caliber. The vertebral arteries are codominant. Vertebral arteries are normal in course and caliber.. The soft tissues of the neck are within normal limits. Patchy groundglass opacities throughout the imaged lungs with scattered foci of subsegmental consolidation with multiple subcentimeter pneumatoceles. Degenerative changes of the imaged spine. No acute osseous process. Oral enteric and endotracheal tubes are present. IMPRESSION: 1. Similar appearance of soft tissue changes about the left orbit without definitive filling defect within the left cavernous sinus. 2. No acute intracranial process. 3.Intact anterior and posterior circulations without dissection, major branch occlusion, aneurysm, or vascular malformation. 4. No dissection or high grade stenosis of the carotid or vertebral systems. 5. Scattered groundglass opacities and pneumatoceles imaged lungs with subsegmental foci of consolidation, correlate clinically, infectious versus inflammatory. This CT examination was performed using dose optimization techniques as appropriate, variously including the following: * Automated exposure control * Adjustment of mA and/or kV according to patient size (this includes techniques or standardized protocols for targeted exams where dose is matched to indication/reason for exam; i.e. extremities or head) * Use of iterative reconstruction technique Marie Chamberlain PA-C IM CT ORDERABLES Final Re sult * (ABNORMAL) HEPATIC FUNCTION PANEL (09/12/2024 12:19 AM EDT) Alkaline Phosphatase 56 45 - 128 U/L 09/12/2024 1:52 AM EDT [facility] Aspartate Aminotrans (AST) 109(H) 10 - 55 U/L 09/12/2024 1:52 AM EDT [facility] Alanine Aminotrans (ALT) 152(H) 10 - 55 U/L 09/12/2024 1:52 AM EDT [facility] Bilirubin, Total 4.5(H) 0.2 - 1.0 mg/dL 09/12/2024 1:52 AM EDT [facility] Protein, Total 7.6 6.3 - 8.3 g/dL 09/12/2024 1:52 AM EDT [facility] Albumin 2.5(L) 3.4 - 4.8 g/dL 09/12/2024 1:52 AM EDT [facility] Bilirubin, Direct 3.4(H) 0 - 0.2 mg/dL 09/12/2024 1:52 AM EDT [facility] Globulin 5.1(H) 1.5 - 3.9 g/dL 09/12/2024 1:52 AM EDT [facility] Albumin/Globulin Ratio 0.5(L) 1.0 - 3.0 Ratio 09/12/2024 1:52 AM EDT [facility] Blood Blood specimen / Unknown 09/12/2024 12:19 AM EDT 09/12/2024 1:07 AM EDT Marie VELASCO-Ryan LAB BLOOD ORDERABLES Final Result Performing Organization Address [facility] [place] [address], [place] [address] * (ABNORMAL) Reticulocyte Count (09/12/2024 12:19 AM EDT) Reticulocyte Count 0.4(L) 0.7 - 2.0 % 09/12/2024 1:21 AM [facility] Reticulocyte, Absolute 9.5(L) 30.0 - 100.0 Thou/uL 09/12/2024 1:21 AM T [facility] Retic Hemoglobin Content 29.70 28 - 35 pg 09/12/2024 1:21 AM T [facility] Immature Reticulocyte Fraction 23.1(H) 2.3 - 15.9 % 09/12/2024 1:21 AM T [facility] Blood Blood specimen / Unknown 09/12/2024 12:19 AM EDT 09/12/2024 1:07 AM EDT Marie Chamberlain PA-C LAB BLOOD ORDERABLES Final Result Performing Organization Address City/[facility]/ZIP Co de Phone Number [address] [address], [address] [address] * Haptoglobin (09/12/2024 12:19 AM EDT) Haptoglobin 181 30 - 200 mg/dL 09/12/2024 1:52 AM EDT [facility] Blood Blood specimen / Unknown 09/12/2024 12:19 AM EDT 09/12/2024 1:07 AM EDT Marie Chamberlain PA-C LAB BLOOD ORDERABLES Final Result [address] [address], [address] [address] * (ABNORMAL) LACTATE DEHYDROGENASE (LDH) (09/12/2024 12:19 AM EDT) Lactate Dehydrogenase (LDH) 550(H) 120 - 260 U/L 09/12/2024 1:52 AM EDT [facility] Blood Blood specimen / Unknown 09/12/2024 12:19 AM EDT 09/12/2024 1:07 AM EDT Marie Chamberlain PA-C LAB BLOOD ORDERABLES Final Result [address] [address], [address] [address] * (ABNORMAL) Complete Blood Count, WITH Differential (routine) (09/12/2024 12:19 AM EDT) White Blood Cell Count 6.0 4.0 - 11.0 Thou/uL 09/12/2024 1:21 AM EDT [facility] Platelet Count 55(L) 150 - 450 Thou/uL 09/12/2024 1:21 AM EDT [facility] Hemoglobin 8.2(L) 13.0 - 17.7 g/dL 09/12/2024 1:21 AM EDT [facility] Hematocrit 24.7(L) 39.0 - 54.0 % 09/12/2024 1:21 AM [facility] Red Blood Cell Count 2.58(L) 4.50 - 6.20 Mil/uL 09/12/2024 1:21 AM [facility] MCV 96 80 - 100 fL 09/12/2024 1:21 AM [facility] MCH 31.8(H) 27.0 - 31.0 pg 09/12/2024 1:21 AM [facility] MCHC 33.2 30.0 - 36.0 g/dL 09/12/2024 1:21 AM [facility] RDW 14.0 11.5 - 14.5 % 09/12/2024 1:21 AM [facility] MPV 12.9(H) 7.5 - 12.5 fL 09/12/2024 1:21 AM [facility] nRBC 0.3(H) 0.0 - 0.1 /100 WBC 09/12/2024 1:21 AM [facility] nRBC, Absolute 0.02 0.00 - 0.02 Thou/uL 09/12/2024 1:21 AM [facility] Immature Platelet Fraction 12.8(H) 1.2 - 8.6 % 09/12/2024 1:21 AM [facility] Neutrophils Auto 83.0 % 09/13/19 1:21 AM [facility] Immature Granulocytes 1.2 % 09/12/2024 1:21 AM [facility] Lymphocytes Auto 7.0 % 09/13/19 1: AM [facility] Monocytes Auto 8.8 % 09/12/2024 1:21 AM [facility] Eosinophils Auto 0.0 % 09/13/19 1:21 AM [facility] Basophils Auto 0.0 % 09/12/2024 1:21 AM [facility] Abs Neutrophils Auto 4.99 2.00 - 7.50 Thou/uL 09/12/2024 1:21 AM [facility] Abs Immature Granulocytes 0.07 0.00 - 0.10 Thou/uL 09/12/2024 1:21 AM [facility] Abs Lymphocytes Auto 0.42(L) 1.50 - 4.50 Thou/uL 09/12/2024 1:21 AM EDT [facility] Abs Monocytes Auto 0.53 0.20 - 1.50 Thou/uL 09/12/2024 1:21 AM EDT [facility] Abs Eosinophils Auto 0.00 0.00 - 0.70 Thou/uL 09/12/2024 1:21 AM EDT [facility] Abs Basophils Auto 0.00 0.00 - 0.20 Thou/uL 09/12/2024 1:21 AM EDT [facility] Blood Blood specimen / Unknown 09/12/2024 12:19 AM EDT 09/12/2024 1:07 AM EDT Marie Chamberlain PA-C LAB BLOOD ORDERABLES Final Result Performing Organization Address City/[facility] [place] [address], [place] [address] * Phosphorus (Routine) (09/12/2024 12:19 AM EDT) Phosphorus 2.8 2.7 - 4.5 mg/dL 09/12/2024 1:52 AM EDT [facility] Blood Blood specimen / Unknown 09/12/2024 12:19 AM EDT 09/12/2024 1:07 AM EDT Marie VELASCO-Ryan LAB BLOOD ORDERABLES Final Result Performing Organization Address City/[facility]/[place] [address], [place] [address] * (ABNORMAL) Magnesium (Routine) (09/12/2024 12:19 AM EDT) Magnesium 3.0(H) 1.6 - 2.7 mg/dL 09/12/2024 1:52 AM EDT [facility] Blood Blood specimen / Unknown 09/12/2024 12:19 AM EDT 09/12/2024 1:07 AM EDT Marie Chamberlain PA-C LAB BLOOD ORDERABLES Final Result [facility] [address] [place] [address], [facility] [address] [place] [address] * (ABNORMAL) Basic Metabolic Panel (Routine) (09/12/2024 12:19 AM EDT) Glucose 157(H) 65 - 99 mg/dL 09/12/2024 1:52 AM T [facility] Comment:Fasting: <100 mg/dL, Non-Fasting: <200 mg/dL (ADA 2004) Blood Urea Nitrogen (BUN) 48(H) 8 - 21 mg/dL 09/12/2024 1:52 AM [facility] Creatinine 1.0 0.5 - 1.3 mg/dL 09/12/2024 1:52 AM [facility] eGFR 85 >59 09/12/2024 1:52 AM [facility] Comment:CKD-EPI (2020) in mL /min/1.73 sq meters. Sodium 153(H) 136 - 145 mmol/L 09/12/2024 1:52 AM [facility] Potassium 4.7 3.4 - 5.3 mmol/L 09/12/2024 1:52 AM [facility] Chloride 118(H) 98 - 107 mmol/L 09/12/2024 1:52 AM [facility] CO2 31 22 - 33 mmol/L 09/12/2024 1:52 AM [facility] Anion Gap 4(L) 7 - 17 09/12/2024 1:52 AM [facility] Calcium 7.7(L) 8.7 - 10.5 mg/dL 09/12/2024 1:52 AM [facility] BUN/Creatinine Ratio 48(H) 10.0 - 25.0 Ratio 09/12/2024 1:52 AM [facility] Blood Blood specimen / Unknown 09/12/2024 12:19 AM EDT 09/12/2024 1:07 AM EDT Marie Chamberlain PA-C LAB BLOOD ORDERABLES Final Result Performing Organization Address [facility]/ZIP Co de Phone Number [address] [address], [address] [address] * (ABNORMAL) POCT Glucose, Fingerstick (09/11/2024 11:33 PM EDT) POC Glucose 161(H) 65 - 99 mg/dL 09/11/2024 11:44 PM EDT Blood specimen / Unknown 09/11/2024 11:33 PM EDT 09/11/2024 11:44 PM EDT Danny Barr MD POINT OF CARE TEST ORDERABLES Fi nal Result Performing Organization Address [facility] Co de Phone Number [facility] See Below * (ABNORMAL) POCT Glucose, Fingerstick (09/11/2024 7:44 PM EDT) POC Glucose 158(H) 65 - 99 mg/dL 09/11/2024 7:58 PM EDT Blood specimen / Unknown 09/11/2024 7:44 PM EDT 09/11/2024 7:56 PM EDT Danny Barr MD POINT OF CARE TEST ORDERABLES Fi nal Result Performing Organization Address [facility] Co de Phone Number [facility] See Below * (ABNORMAL) POCT Glucose, Fingerstick (09/11/2024 4:50 PM EDT) POC Glucose 172(H) 65 - 99 mg/dL 09/11/2024 4:51 PM EDT Blood specimen / Unknown 09/11/2024 4:50 PM EDT 09/11/2024 4:51 PM EDT Danny Barr MD POINT OF CARE TEST ORDERABLES Fi nal Result Performing Organization Address City/[facility]/ZIP Co de Phone Number HOSPITAL [facility] See Below * (ABNORMAL) POCT Glucose, Fingerstick (09/11/2024 3:24 PM EDT) POC Glucose 175(H) 65 - 99 mg/dL 09/11/2024 3:42 PM EDT Blood specimen / Unknown 09/11/2024 3:24 PM EDT 09/11/2024 3:42 PM EDT Danny Barr MD POINT OF CARE TEST ORDERABLES Fi nal Result [facility]ITAL [facility] See Below * (ABNORMAL) POCT Glucose, Fingerstick (09/11/2024 1:53 PM EDT) POC Glucose 175(H) 65 - 99 mg/dL 09/11/2024 1:58 PM EDT Blood specimen / Unknown 09/11/2024 1:53 PM EDT 09/11/2024 1:58 PM EDT Danny Barr MD POINT OF CARE TEST ORDERABLES Fi nal Result Performing Organization Address City/[facility]/ZIP Co de Phone Number [facility] See Below * Proteinase-3 Antibody (09/11/2024 11:15 AM EDT) Proteinase-3 Antibody <2.0 <2 U/mL 2024 2:23 PM EDT [facility] Comment:Negative Blood Blood specimen / Unknown 09/11/2024 11:15 AM EDT 09/11/2024 12:27 PM EDT us Aimee Fontenot PA LAB BLOOD ORDERABLES Naina l Result Performing Organization Address City/[facility]/ZIP Co de Phone Number [facility] [address] [place] [address], * Myeloperoxidase Antibody (09/11/2024 11:15 AM EDT) Myeloperoxidase (MPO) Antibody <3.5 <3.5 U/mL 2024 2:23 PM EDT [facility] Comment:Negative Blood Blood specimen / Unknown 09/11/2024 11:15 AM EDT 09/11/2024 12:27 PM EDT us Aimee Boone Corie PA LAB BLOOD ORDERABLES Naina l Result [facility] [address] [place] [address], [place] * ANCA Screen, Reflex Titer (09/11/2024 11:15 AM EDT) ANCA Screen Negative Negative 09/16/2024 4:32 PM EDT [facility] Comment: (NOTE) ANCA screen uses indirect immunofluorescence [...] ORDERABLES Naina l Result Performing Organization Address [facility] Co de Phone Number [employer], [address] [place] [address] , [employer], [address] [place] [address] * (ABNORMAL) Complement C4 (09/11/2024 11:15 AM EDT) Pathologist [facility] [place] Complement C4 10(L) 15 - 53 mg/dL 09/14/2024 8:59 PM EDT [facility] Blood Blood specimen / Unknown 09/11/2024 11:15 AM EDT 09/11/2024 12:27 PM EDT us Aimee Fontenot PA LAB BLOOD ORDERABLES Naina l Result [employer], [place] [address] [facility] [address] [address] [place], [place] , [employer], [place] [address] [facility] [id number] [place] [address] * Complement C3 (09/11/2024 11:15 AM EDT) [facility] Complement C3 85 82 - 185 mg/dL 09/14/2024 8:59 PM EDT [facility] Blood Blood specimen / Unknown 09/11/2024 11:15 AM EDT 09/11/2024 12:27 PM EDT us Aimee VELASCO LAB BLOOD ORDERABLES Naina l Result Performing Organization Address City/[facility]/ZIP Co de Phone Number [facility], [place] [address] [facility] [address] [place] [address] , [employer], [address] [place] [address] * Double Strand DNA (dsDNA) Antibody Screen, Crithidia, Reflex Titer (09/11/2024 11:15 AM EDT) [facility] DNA (ds) Antibody Screen Negative Negative 09/14/2024 8:59 AM EDT [facility] Additional Testing REPORT 09/14/2024 8:59 AM EDT [employer] [place] Comment: (NOTE) Not indicated Blood Blood specimen / Unknown 09/11/2024 11:15 AM EDT 09/11/2024 12:27 PM EDT us Aimee VELASCO LAB BLOOD ORDERABLES Naina l Result [employer], [place] [address] [facility] [address] [place] [address] , [facility], [place] [id number] [facility] [address] [place] [address] * Cyclic Citrullinated Peptide Antibody, IgG (09/11/2024 11:15 AM EDT) [facility] CCP IgG Antibodies <16 <20 Units 2024 12:19 AM EDT [employer] [facility] [place] Comment: (NOTE) Negative: ? <20 Weak Positive: ?20 - 39 Moderate Positive: ?40 - 59 Strong Positive: ?>59 Blood Blood specimen / Unknown 09/11/2024 11:15 AM EDT 09/11/2024 12:27 PM EDT us Aimee VELASCO LAB BLOOD ORDERABLES Naina l Result Performing Organization Address [facility] de Phone Number [facility] [address] [place] [address] [id number] [place] [address] , [facility] [address] [place] [address] [address] [place] [address] * Lupus Anticoagulant Screen w/ Reflex (09/11/2024 11:15 AM EDT) Lupus Anticoagulant Eval. REPORT 09/14/2024 7:10 AM EDT [facility] Comment: (NOTE) A Lupus Anticoagulant is not detected. Reference Range: ??Not Detected For additional information, please refer to http://education.[employer]/faq/UDT49r2 (This link is being provided for informational/ educational purposes only.) ? This interpretation is based on the following test results. PTT Lupus Anticoagulant 31 <=40 sec 09/14/2024 7:10 AM EDT [facility] dRVVT Screen 43 <=45 sec 09/14/2024 7:10 AM EDT [facility] Blood Blood specimen / Unknown 09/11/2024 11:15 AM EDT 09/11/2024 12:27 PM EDT us Aimee VELASCO LAB BLOOD ORDERABLES Naina l Result Performing Organization Address [facility] de Phone Number [facility] SCAL[facility] [id number] [place] [address] [address] [place] [address] , [employer], [address] [place] [address] * Glomerular Basement Membrane Ab, IgG (09/11/2024 11:15 AM EDT) [facility] Glomerular Basement Membrane Ab <1.0 <1.0 AI 09/13/2024 4:12 PM EDT [employer] [facility] [place] Comment: (NOTE) ?Value ?? Interpretation ? <1.0 AI: No Antibody Detected ?>or=1.0 AI: Antibody Detected Blood Blood specimen / Unknown 09/11/2024 11:15 AM EDT 09/11/2024 12:27 PM EDT us Aimee VELASCO LAB BLOOD ORDERABLES Naina sutherland Result [facility] [address] [place] [address] [place] [address] , [facility] [address] [place] [address] [place] [address] * (ABNORMAL) Complete Blood Count, WITHOUT Differential (routine) (09/11/2024 11:15 AM EDT) [facility] White Blood Cell Count 5.7 4.0 - 11.0 Thou/uL 09/11/2024 12:44 PM EDT [facility] Platelet Count 54(L) 150 - 450 Thou/uL 09/11/2024 12:44 PM EDT [facility] Hemoglobin 8.1(L) 13.0 - 17.7 g/dL 09/11/2024 12:44 PM EDT [facility] Hematocrit 24.9(L) 39.0 - 54.0 % 09/11/2024 12:44 PM EDT [facility] Red Blood Cell Count 2.59(L) 4.50 - 6.20 Mil/uL 09/11/2024 12:44 PM [facility] MCV 96 80 - 100 fL 09/11/2024 12:44 PM EDT [facility] MCH 31.3(H) 27.0 - 31.0 pg 09/11/2024 12:44 PM [facility] MCHC 32.5 30.0 - 36.0 g/dL 09/11/2024 12:44 PM T [facility] RDW 14.3 11.5 - 14.5 % 09/11/2024 12:44 PM [facility] MPV 12.7(H) 7.5 - 12.5 fL 09/11/2024 12:44 PM [facility] Immature Platelet Fraction 11.3(H) 1.2 - 8.6 % 09/11/2024 12:44 PM [facility] Blood Blood specimen / Unknown 09/11/2024 11:15 AM EDT 09/11/2024 12:27 PM EDT Marie Chamberlain PA-C LAB BLOOD [place] [address], [address] [address] * (ABNORMAL) BASIC METABOLIC PANEL (09/11/2024 11:15 AM EDT) Glucose 164(H) 65 - 99 mg/dL 09/11/2024 1:09 PM [facility] Comment:Fasting: <100 mg/dL, Non-Fasting: <200 mg/dL (ADA 2004) Blood Urea Nitrogen (BUN) 59(H) 8 - 21 mg/dL 09/11/2024 1:09 PM [facility] Creatinine 1.1 0.5 - 1.3 mg/dL 09/11/2024 1:09 PM [facility] eGFR 76 >59 09/11/2024 1:09 PM [facility] Comment:CKD-EPI (2020) in mL /min/1.73 sq meters. Sodium 156(H) 136 - 145 mmol/L 09/11/2024 1:09 PM EDT [facility] Potassium 4.7 3.4 - 5.3 mmol/L 09/11/2024 1:09 PM EDT [facility] Chloride 120(H) 98 - 107 mmol/L 09/11/2024 1:09 PM EDT [facility] CO2 29 22 - 33 mmol/L 09/11/2024 1:09 PM EDT [facility] Anion Gap 7 7 - 17 09/11/2024 1:09 PM EDT [facility] Calcium 7.6(L) 8.7 - 10.5 mg/dL 09/11/2024 1:09 PM EDT [facility] BUN/Creatinine Ratio 54(H) 10.0 - 25.0 Ratio 09/11/2024 1:09 PM EDT [facility] Blood Blood specimen / Unknown 09/11/2024 11:15 AM EDT 09/11/2024 12:27 PM EDT Marie Chamberlain PA-C LAB BLOOD [place] [address], [place] [address] * (ABNORMAL) POCT Glucose, Fingerstick (09/11/2024 11:09 AM EDT) Pathologist [facility] [place] POC Glucose 165(H) 65 - 99 mg/dL 09/11/2024 11:31 AM EDT Blood specimen / Unknown 09/11/2024 11:09 AM EDT 09/11/2024 11:31 AM EDT Danny Barr MD POINT OF CARE TEST ORDERABLES Fi nal Result HOSPITAL LAB See Below * ECHOCARDIOGRAM COMPREHENSIVE WITH CONTRAST (09/11/2024 7:45 AM EDT) Pathologist [facility] [place] IVS Mean (F:0.6-0.9, M:0.6-1.0) 1.2 cm IVS [...] LVOT mn grad 4.2 mmHg LVOT peak opal mean 1.3 m/s LVOT peak opal 1.3 m/s LVOT VTI MEAN 26.4 cm LVOT VTI 26.4 cm RVID d Mean 3.8 cm RVID d 3.8 cm LA volume Mean 90.1 mL LA volume 90.1 mL AV mean gradient mean 45.7 mmHg AV mean gradient 45.7 mmHg Ao peak opal mean 4.3 m/s Ao peak opal 4.3 m/s Ao VTI Mean 87.6 cm [...] 1.9 cm Tapse 1.9 cm TR Peak Opal Mean 3.3 m/s Ascending aorta mean 3.9 [...] left ventricular wall motion is globally hyperkinetic. us Marie Chamberlain PA-C CV ECHO ORDERABLES Final R esult * ECG 12 lead (09/11/2024 7:43 AM EDT) Systolic BP 148 mmHg EKG [facility] Diastolic BP 69 mmHg EKG [facility] Ventricular rate 86 BPM EKG [facility] Atrial rate 86 BPM EKG [facility] P-R interval 126 ms EKG [facility] QRS duration 136 ms EKG [facility] Q-T interval 394 ms EKG [facility] QTC calculation (Bazett) 471 ms EKG [facility] P axis 67 degrees EKG [facility] R axis 94 degrees EKG [facility] T axis 55 degrees EKG [facility] 09/11/2024 7:43 AM EDT Narrative EKG [facility] - 09/11/2024 8:01 AM EDT Normal sinus rhythm Possible Left atrial enlargement Right bundle branch block Abnormal ECG When compared with ECG of 08-Sep-2024 08:11, No significant change was found Confirmed by MD Leary Christopher ([id number]) on 09/11/2024 8:01:48 AM Procedure Note David Leary MD - 09/11/2024 Normal sinus rhythm Possible Left atrial enlargement Right bundle branch block Abnormal ECG When compared with ECG of 08-Sep-2024 08:11, No significant change was found Confirmed by MD Leary Christopher ([id number]) on 09/11/2024 8:01:48 AM us Danny Barr MD ECG ORDERABLES Final Result Performing Organization Address City/[facility]/ZIP Co de Phone Number [facility] * (ABNORMAL) POCT Glucose, Fingerstick (09/11/2024 7:38 AM EDT) POC Glucose 154(H) 65 - 99 mg/dL 09/11/2024 7:54 AM EDT Blood specimen / Unknown 09/11/2024 7:38 AM EDT 09/11/2024 7:54 AM EDT us Danny Barr MD POINT OF CARE TEST ORDERABLES Fi nal Result Performing Organization Address [facility]/ZIP Co de Phone Number HOSPITAL LAB See Below * (ABNORMAL) POCT Glucose, Fingerstick (09/11/2024 3:41 AM EDT) POC Glucose 160(H) 65 - 99 mg/dL 09/11/2024 3:54 AM EDT Blood specimen / Unknown 09/11/2024 3:41 AM EDT 09/11/2024 3:54 AM EDT Danny Barr MD POINT OF CARE TEST ORDERABLES Fi nal Result HOSPITAL LAB See Below * Phosphorus (09/11/2024 12:10 AM EDT) Phosphorus 2.8 2.7 - 4.5 mg/dL 09/11/2024 1:20 AM EDT [facility] Blood Blood specimen / Unknown 09/11/2024 12:10 AM EDT 09/11/2024 12:35 AM EDT Meghan VELASCO LAB BLOOD ORDERABLES Fin al Result Performing Organization Address [facility] [place] [address], [place] [address] * (ABNORMAL) Magnesium (09/11/2024 12:10 AM EDT) Magnesium 3.3(H) 1.6 - 2.7 mg/dL 09/11/2024 1:20 AM EDT [facility] Blood Blood specimen / Unknown 09/11/2024 12:10 AM EDT 09/11/2024 12:35 AM EDT Meghan VELASCO LAB BLOOD ORDERABLES Fin al Result Performing Organization Address City/[facility]/[place] [address], [place] [address] * (ABNORMAL) Basic Metabolic Panel (09/11/2024 12:10 AM EDT) Glucose 158(H) 65 - 99 mg/dL 09/11/2024 1:20 AM EDT [facility] Comment:Fasting: <100 mg/dL, Non-Fasting: <200 mg/dL (ADA 2005) Blood Urea Nitrogen (BUN) 67(H) 8 - 21 mg/dL 09/11/2024 1:20 AM [facility] Creatinine 1.1 0.5 - 1.3 mg/dL 09/11/2024 1:20 AM [facility] eGFR 76 >59 09/11/2024 1:20 AM [facility] Comment:CKD-EPI (2020) in mL /min/1.73 sq meters. Sodium 149(H) 136 - 145 mmol/L 09/11/2024 1:20 AM [facility] Potassium 4.9 3.4 - 5.3 mmol/L 09/11/2024 1:20 AM [facility] Chloride 118(H) 98 - 107 mmol/L 09/11/2024 1:20 AM [facility] CO2 26 22 - 33 mmol/L 09/11/2024 1:20 AM [facility] Anion Gap 5(L) 7 - 17 09/11/2024 1:20 AM [facility] Calcium 7.6(L) 8.7 - 10.5 mg/dL 09/11/2024 1:20 AM [facility] BUN/Creatinine Ratio 61(H) 10.0 - 25.0 Ratio 09/11/2024 1:20 AM [facility] Blood Blood specimen / Unknown 09/11/2024 12:10 AM EDT 09/11/2024 12:35 AM EDT Meghan VELASCO LAB BLOOD ORDERABLES Fin al Result [address] [address], [address] [address] * (ABNORMAL) COMPLETE BLOOD COUNT, WITHOUT DIFFERENTIAL (09/11/2024 12:10 AM EDT) White Blood Cell Count 4.8 4.0 - 11.0 Thou/uL 09/11[facility]2024 [facility] Platelet Count 48(L) 150 - 450 Thou/uL 09/11/2024 12:52 AM [facility] Hemoglobin 7.3(L) 13.0 - 17.7 g/dL 09/11/2024 12:52 AM [facility] Hematocrit 21.9(L) 39.0 - 54.0 % 09/11/2024 12:52 AM [facility] Red Blood Cell Count 2.28(L) 4.50 - 6.20 Mil/uL 09/11/2024 12:52 AM [facility] MCV 96 80 - 100 fL 09/11/2024 12:52 AM [facility] MCH 32.0(H) 27.0 - 31.0 pg 09/11/2024 12:52 AM [facility] MCHC 33.3 30.0 - 36.0 g/dL 09/11/2024 12:52 AM [facility] RDW 14.3 11.5 - 14.5 % 09/11/2024 12:52 AM [facility] MPV 12.0 7.5 - 12.5 fL 09/11/2024 12:52 AM [facility] Immature Platelet Fraction 9.6(H) 1.2 - 8.6 % 09/11/2024 12:52 AM [facility] Blood Blood specimen / Unknown 09/11/2024 12:10 AM EDT 09/11/2024 12:35 AM EDT us Meghan VELASCO LAB BLOOD ORDERABLES Fin al Result Performing Organization Address City/State/[facility] Co de Phone Number [address] [address], [address] [address] * (ABNORMAL) POCT Glucose, Fingerstick (09/11/2024 12:07 AM EDT) POC Glucose 145(H) 65 - 99 mg/dL 09/11/2024 12:07 AM EDT Blood specimen / Unknown 09/11/2024 12:07 AM EDT 09/11/2024 12:08 AM EDT Danny Barr MD POINT OF CARE TEST ORDERABLES Fi nal Result HOSPITAL LAB See Below * (ABNORMAL) POCT Glucose, Fingerstick (09/10/2024 7:45 PM EDT) POC Glucose 190(H) 65 - 99 mg/dL 09/10/2024 7:58 PM EDT Blood specimen / Unknown 09/10/2024 7:45 PM EDT 09/10/2024 7:58 PM EDT Danny Barr MD POINT OF CARE TEST ORDERABLES Fi nal Result Performing Organization Address [facility] de Phone Number HOSPITAL LAB See Below * Transfuse Platelets:Transfusion Indications: Plt count less than or equal to 50K and bleeding (09/10/2024 6:39 PM EDT) Meghan VELASCO BLOOD TRANSFUSION ORDERA BLES Final Result * Transfuse Platelets:Transfusion Indications: Plt count less than or equal to 50K and bleeding (09/10/2024 6:39 PM EDT) Meghan VELASCO BLOOD TRANSFUSION ORDERA BLES Final Result * (ABNORMAL) POCT Glucose, Fingerstick (09/10/2024 4:08 PM EDT) POC Glucose 179(H) 65 - 99 mg/dL 09/10/2024 4:13 PM EDT Blood specimen / Unknown 09/10/2024 4:08 PM EDT 09/10/2024 4:13 PM EDT Danny Barr MD POINT OF CARE TEST ORDERABLES Fi nal Result Performing Organization Address [facility] Co de Phone Number HOSPITAL LAB See Below * Prepare Platelets:Prepare in: Doses; Number of doses: 1; Transfusion Indications: Plt count less than or equal to 50K and bleeding (09/10/2024 2:36 PM EDT) Units Ordered 1 09/10/2024 3:11 PM EDT Unit Number [id number] 09/10/2024 3:15 PM EDT [facility] Blood Component Type Pathogen Reduced apheresis platelet 09/10/2024 3:15 PM EDT [facility] Unit Division 00 09/10/2024 3:15 PM EDT [facility] Unit Status ISSUED,FINAL 09/11/2024 12:12 AM EDT [facility] Transfusion Status OK TO TRANSFUSE 09/10/2024 3:15 PM EDT [facility] 09/10/2024 2:36 PM EDT 09/10/2024 3:15 PM EDT us Meghan VELASCO BLOOD BANK PRODUCT ORDER CHASE Final Result HOSPITAL LAB See Below [address] [address] * (ABNORMAL) COMPLETE BLOOD COUNT, WITHOUT DIFFERENTIAL (09/10/2024 12:09 PM EDT) White Blood Cell Count 5.8 4.0 - 11.0 Thou/uL 09/10/2024 12:49 PM [facility] Platelet Count 28(L) 150 - 450 Thou/uL 09/10/2024 12:49 PM [facility] Hemoglobin 7.9(L) 13.0 - 17.7 g/dL 09/10/2024 12:49 PM [facility] Hematocrit 23.5(L) 39.0 - 54.0 % 09/10/2024 12:49 PM [facility] Red Blood Cell Count 2.52(L) 4.50 - 6.20 Mil/uL 09/10/2024 12:49 PM [facility] MCV 93 80 - 100 fL 09/10/2024 12:49 PM [facility] MCH 31.3(H) 27.0 - 31.0 pg 09/10/2024 12:49 PM [facility] MCHC 33.6 30.0 - 36.0 g/dL 09/10/2024 12:49 PM [facility] RDW 14.6(H) 11.5 - 14.5 % 09/10/2024 12:49 PM [facility] MPV 13.8(H) 7.5 - 12.5 fL 09/10/2024 12:49 PM EDT [facility] Immature Platelet Fraction 14.9(H) 1.2 - 8.6 % 09/10/2024 12:49 PM EDT [facility] Blood Blood specimen / Unknown 09/10/2024 12:09 PM EDT 09/10/2024 12:33 PM EDT Meghan VELASCO LAB BLOOD ORDERABLES Fin al Result [address] [address], [address] [address] * Phosphorus (09/10/2024 12:09 PM EDT) Phosphorus 3.7 2.7 - 4.5 mg/dL 09/10/2024 1:04 PM EDT [facility] Blood Blood specimen / Unknown 09/10/2024 12:09 PM EDT 09/10/2024 12:33 PM EDT Meghan VELASCO LAB BLOOD ORDERABLES Fin al Result Performing Organization Address City/[facility]/ZIP Co de Phone Number [address] [address], [address] [address] * (ABNORMAL) Magnesium (09/10/2024 12:09 PM EDT) Magnesium 3.4(H) 1.6 - 2.7 mg/dL 09/10/2024 1:04 PM EDT [facility] Blood Blood specimen / Unknown 09/10/2024 12:09 PM EDT 09/10/2024 12:33 PM EDT Meghan VELASCO LAB BLOOD ORDERABLES Fin al Result Performing Organization Address City/[facility]/ZIP Co de Phone Number [address] [address], [address] [address] * (ABNORMAL) Basic Metabolic Panel (09/10/2024 12:09 PM EDT) Glucose 159(H) 65 - 99 mg/dL 09/10/2024 1:04 PM [facility] Comment:Fasting: <100 mg/dL, Non-Fasting: <200 mg/dL (ADA 2004) Blood Urea Nitrogen (BUN) 76(H) 8 - 21 mg/dL 09/10/2024 1:04 PM [facility] Creatinine 1.2 0.5 - 1.3 mg/dL 09/10/2024 1:04 PM [facility] eGFR 68 >59 09/10/2024 1:04 PM [facility] Comment:CKD-EPI (2020) in mL /min/1.73 sq meters. Sodium 149(H) 136 - 145 mmol/L 09/10/2024 1:04 PM [facility] Potassium 4.9 3.4 - 5.3 mmol/L 09/10/2024 1:04 PM [facility] Chloride 118(H) 98 - 107 mmol/L 09/10/2024 1:04 PM [facility] CO2 24 22 - 33 mmol/L 09/10/2024 1:04 PM [facility] Anion Gap 7 7 - 17 09/10/2024 1:04 PM [facility] Calcium 7.7(L) 8.7 - 10.5 mg/dL 09/10/2024 1:04 PM [facility] BUN/Creatinine Ratio 63(H) 10.0 - 25.0 Ratio 09/10/2024 1:04 PM [facility] Blood Blood specimen / Unknown 09/10/2024 12:09 PM EDT 09/10/2024 12:33 PM EDT us Meghan VELASCO LAB BLOOD ORDERABLES Fin al Result [address] [address], [address] [address] * (ABNORMAL) Triglycerides (09/10/2024 12:09 PM EDT) Triglycerides 531(H) <150 mg/dL 09/10/2024 1:04 PM EDT [facility] Blood Blood specimen / Unknown 09/10/2024 12:09 PM EDT 09/10/2024 12:33 PM EDT Meghan Pool PA LAB BLOOD ORDERABLES Fin al Result Performing Organization Address [facility] Co de Phone Number [address] [address], [address] [address] * (ABNORMAL) POCT Glucose, Fingerstick (09/10/2024 11:31 AM EDT) POC Glucose 204(H) 65 - 99 mg/dL 09/10/2024 11:35 AM EDT Blood specimen / Unknown 09/10/2024 11:31 AM EDT 09/10/2024 11:35 AM EDT Danny Barr MD POINT OF CARE TEST ORDERABLES Fi nal Result Performing Organization Address [facility] Number [facility] LAB See Below * (ABNORMAL) POCT Glucose, Fingerstick (09/10/2024 7:55 AM EDT) POC Glucose 175(H) 65 - 99 mg/dL 09/10/2024 8:15 AM EDT Blood specimen / Unknown 09/10/2024 7:55 AM EDT 09/10/2024 8:15 AM EDT Danny Barr MD POINT OF CARE TEST ORDERABLES Fi nal Result Performing Organization Address [facility] de Phone Number [facility] LAB See Below * (ABNORMAL) POCT Glucose, Fingerstick (09/10/2024 4:07 AM EDT) POC Glucose 167(H) 65 - 99 mg/dL 09/10/2024 4:12 AM EDT Blood specimen / Unknown 09/10/2024 4:07 AM EDT 09/10/2024 4:12 AM EDT Danny Barr MD POINT OF CARE TEST ORDERABLES Fi nal Result HOSPITAL LAB See Below * Phosphorus (09/09/2024 11:55 PM EDT) Phosphorus 4.5 2.7 - 4.5 mg/dL 09/10/2024 1:43 AM EDT [facility] Blood Blood specimen / Unknown 09/09/2024 11:55 PM EDT 09/10/2024 1:17 AM EDT Meghan VELASCO LAB BLOOD ORDERABLES Fin al Result Performing Organization Address [facility] [place] [address], [place] [address] * (ABNORMAL) Magnesium (09/09/2024 11:55 PM EDT) Magnesium 3.5(H) 1.6 - 2.7 mg/dL 09/10/2024 1:43 AM EDT [facility] Blood Blood specimen / Unknown 09/09/2024 11:55 PM EDT 09/10/2024 1:17 AM EDT Meghan VELASCO LAB BLOOD ORDERABLES Fin al Result Performing Organization Address [facility] [place] [address], [place] [address] * (ABNORMAL) Basic Metabolic Panel (09/09/2024 11:55 PM EDT) Glucose 147(H) 65 - 99 mg/dL 09/10/2024 1:43 AM EDT [facility] Comment:Fasting: <100 mg/dL, Non-Fasting: <200 mg/dL (ADA 2005) Blood Urea Nitrogen (BUN) 84(H) 8 - 21 mg/dL 09/10/2024 1:43 AM EDT [facility] Creatinine 1.6(H) 0.5 - 1.3 mg/dL 09/10/2024 1:43 AM [facility] eGFR 48(L) >59 09/10/2024 1:43 AM [facility] Comment:CKD-EPI (2020) in mL /min/1.73 sq meters. Sodium 146(H) 136 - 145 mmol/L 09/10/2024 1:43 AM [facility] Potassium 4.9 3.4 - 5.3 mmol/L 09/10/2024 1:43 AM [facility] Chloride 116(H) 98 - 107 mmol/L 09/10/2024 1:43 AM [facility] CO2 24 22 - 33 mmol/L 09/10/2024 1:43 AM [facility] Anion Gap 6(L) 7 - 17 09/10/2024 1:43 AM [facility] Calcium 7.8(L) 8.7 - 10.5 mg/dL 09/10/2024 1:43 AM [facility] BUN/Creatinine Ratio 53(H) 10.0 - 25.0 Ratio 09/10/2024 1:43 AM [facility] Blood Blood specimen / Unknown 09/09/2024 11:55 PM EDT 09/10/2024 1:17 AM EDT Meghan VELASCO LAB BLOOD ORDERABLES Fin al Result [address] [address], [address] [address] * (ABNORMAL) COMPLETE BLOOD COUNT, WITHOUT DIFFERENTIAL (09/09/2024 11:55 PM EDT) White Blood Cell Count 7.7 4.0 - 11.0 Thou/uL 09/10/2024 [facility] Platelet Count 30(L) 150 - 450 Thou/uL 09/10/2024 1:26 AM [facility] Hemoglobin 7.6(L) 13.0 - 17.7 g/dL 09/10/2024 1:26 AM [facility] Hematocrit 23.6(L) 39.0 - 54.0 % 09/10/2024 1:26 AM [facility] Red Blood Cell Count 2.46(L) 4.50 - 6.20 Mil/uL 09/10/2024 1:26 AM [facility] MCV 96 80 - 100 fL 09/10/2024 1:26 AM [facility] MCH 30.9 27.0 - 31.0 pg 09/10/2024 1:26 AM [facility] MCHC 32.2 30.0 - 36.0 g/dL 09/10/2024 1:26 AM [facility] RDW 14.6(H) 11.5 - 14.5 % 09/10/2024 1:26 AM [facility] MPV 13.8(H) 7.5 - 12.5 fL 09/10/2024 1:26 AM [facility] Immature Platelet Fraction 12.2(H) 1.2 - 8.6 % 09/10/2024 1:26 AM [facility] Blood Blood specimen / Unknown 09/09/2024 11:55 PM EDT 09/10/2024 1:17 AM EDT us Meghan VELASCO LAB BLOOD [place]AB[place] [address], [address] [address] * (ABNORMAL) POCT Glucose, Fingerstick (09/09/2024 11:31 PM EDT) POC Glucose 146(H) 65 - 99 mg/dL 09/09/2024 11:32 PM EDT Blood specimen / Unknown 09/09/2024 11:31 PM EDT 09/09/2024 11:32 PM EDT Danny Barr MD POINT OF CARE TEST ORDERABLES Fi nal Result [facility]OSPITAL LAB See Below * (ABNORMAL) POCT Glucose, Fingerstick (09/09/2024 7:57 PM EDT) POC Glucose 125(H) 65 - 99 mg/dL 09/09/2024 7:58 PM EDT Blood specimen / Unknown 09/09/2024 7:57 PM EDT 09/09/2024 7:58 PM EDT Danny Barr MD POINT OF CARE TEST ORDERABLES Fi nal Result Performing Organization Address [facility]/ZIP Co de Phone Number [facility] See Below * (ABNORMAL) POCT Glucose, Fingerstick (09/09/2024 4:05 PM EDT) POC Glucose 119(H) 65 - 99 mg/dL 09/09/2024 4:25 PM EDT Blood specimen / Unknown 09/09/2024 4:05 PM EDT 09/09/2024 4:25 PM EDT Danny Barr MD POINT OF CARE TEST ORDERABLES Fi nal Result Performing Organization Address [facility]/ZIP Co de Phone Number [facility] See Below * (ABNORMAL) Phosphorus (09/09/2024 12:22 PM EDT) Phosphorus 5.0(H) 2.7 - 4.5 mg/dL 09/09/2024 1:52 PM EDT [facility] Blood Blood specimen / Unknown 09/09/2024 12:22 PM EDT 09/09/2024 12:48 PM EDT Meghan Pool PA LAB BLOOD ORDERABLES Fin al Result Performing Organization Address [facility]/ZIP Co de Phone Number [address] [address], [address] [address] * (ABNORMAL) Magnesium (09/09/2024 12:22 PM EDT) Magnesium 3.3(H) 1.6 - 2.7 mg/dL 09/09/2024 1:52 PM EDT [facility] Blood Blood specimen / Unknown 09/09/2024 12:22 PM EDT 09/09/2024 12:48 PM EDT us Meghan VELASCO LAB BLOOD ORDERABLES Fin al Result [address] [address], [address] [address] * (ABNORMAL) Basic Metabolic Panel (09/09/2024 12:22 PM EDT) Glucose 125(H) 65 - 99 mg/dL 09/09/2024 1:52 PM EDT [facility] Comment:Fasting: <100 mg/dL, Non-Fasting: <200 mg/dL (ADA 2005) Blood Urea Nitrogen (BUN) 85(H) 8 - 21 mg/dL 09/09/2024 1:52 PM EDT [facility] Creatinine 1.6(H) 0.5 - 1.3 mg/dL 09/09/2024 1:52 PM EDT [facility] eGFR 48(L) >59 09/09/2024 1:52 PM T [facility] Comment:CKD-EPI (2020) in mL /min/1.73 sq meters. Sodium 144 136 - 145 mmol/L 09/09/2024 1:52 PM EDT [facility] Potassium 4.8 3.4 - 5.3 mmol/L 09/09/2024 1:52 PM EDT [facility] Chloride 115(H) 98 - 107 mmol/L 09/09/2024 1:52 PM EDT [facility] CO2 20(L) 22 - 33 mmol/L 09/09/2024 1:52 PM T [facility] Anion Gap 9 7 - 17 09/09/2024 1:52 PM EDT [facility] Calcium 7.8(L) 8.7 - 10.5 mg/dL 09/09/2024 1:52 PM EDT [facility] BUN/Creatinine Ratio 53(H) 10.0 - 25.0 Ratio 09/09/2024 1:52 PM [facility] Blood Blood specimen / Unknown 09/09/2024 12:22 PM EDT 09/09/2024 12:48 PM EDT Meghan VELASCO LAB BLOOD ORDERABLES Fin al Result [address] [address], [address] [id number] * (ABNORMAL) COMPLETE BLOOD COUNT, WITHOUT DIFFERENTIAL (09/09/2024 12:22 PM EDT) White Blood Cell Count 10.7 4.0 - 11.0 Thou/uL 09/09/2024 1:31 PM [facility] Platelet Count 35(L) 150 - 450 Thou/uL 09/09/2024 1:31 PM [facility] Hemoglobin 8.1(L) 13.0 - 17.7 g/dL 09/09/2024 1:31 PM [facility] Hematocrit 24.2(L) 39.0 - 54.0 % 09/09/2024 1:31 PM [facility] Red Blood Cell Count 2.62(L) 4.50 - 6.20 Mil/uL 09/09/2024 1:31 PM [facility] MCV 92 80 - 100 fL 09/09/2024 1:31 PM [facility] MCH 30.9 27.0 - 31.0 pg 09/09/2024 1:31 PM [facility] MCHC 33.5 30.0 - 36.0 g/dL 09/09/2024 1:31 PM [facility] RDW 14.7(H) 11.5 - 14.5 % 09/09/2024 1:31 PM [facility] MPV 13.3(H) 7.5 - 12.5 fL 09/09/2024 1:31 PM [facility] Immature Platelet Fraction 15.0(H) 1.2 - 8.6 % 09/09/2024 1:31 PM [facility] Blood Blood specimen / Unknown 09/09/2024 12:22 PM EDT 09/09/2024 12:48 PM EDT Meghan Pool PA LAB BLOOD ORDERABLES Fin al Result Performing Organization Address [facility] Co de Phone Number [address] [address], [address] [address] * (ABNORMAL) POCT Glucose, Fingerstick (09/09/2024 11:21 AM EDT) Pathologist [facility] [place] POC Glucose 142(H) 65 - 99 mg/dL 09/09/2024 11:22 AM EDT Blood specimen / Unknown 09/09/2024 11:21 AM EDT 09/09/2024 11:22 AM EDT Danny Barr MD POINT OF CARE TEST ORDERABLES Fi nal Result Performing Organization Address [facility] Co de Phone Number [facility] See Below * (ABNORMAL) POCT Glucose, Fingerstick (09/09/2024 8:02 AM EDT) Pathologist [facility] [place] POC Glucose 127(H) 65 - 99 mg/dL 09/09/2024 8:02 AM EDT Blood specimen / Unknown 09/09/2024 8:02 AM EDT 09/09/2024 8:03 AM EDT Danny Barr MD POINT OF CARE TEST ORDERABLES Fi nal Result Performing Organization Address [facility] [facility] Co de Phone Number [facility] See Below * (ABNORMAL) Blood Gas with Cooximetry, Venous (09/09/2024 5:49 AM EDT) Respiratory Info VENT 40% 09/10/19 5:49 AM EDT [facility] Venous Blood PH 7.29(L) 7.33 - 7.43 09/09/2024 6:20 AM EDT [facility] Venous pCO2 52(H) 35 - 50 mmHG 09/09/2024 6:20 AM EDT [facility] Venous pO2 58 0 - 60 mmHG 09/09/2024 6:20 AM EDT [facility] Venous Total CO2 26 23 - 29 mmol/L 09/09/2024 6:20 AM EDT [facility] Base Deficiency 1.7 mmol/L 6:20 AM EDT [facility] Comment:Reference Range: Neg ative 2 to Positive 3 Hemogloblin, Total 8.5(L) 13.0 - 17.7 g/dL 09/09/2024 6:20 AM EDT [facility] O2 Saturation, Venous 86.1 % 6:20 AM T [facility] Carboxyhemoglobin 3.2(H) 0.0 - 2.0 % 09/09/2024 6:20 AM T [facility] Methemoglobin 1.1 0.4 - 1.5 % 09/09/2024 6:20 AM T [facility] Venous O2 Content 9.9 7.2 - 17.2 mL/dL 09/09/2024 6:20 AM EDT [facility] Blood Blood specimen / Unknown 09/09/2024 5:49 AM EDT 09/09/2024 6:10 AM EDT Bailey Monzon PA-C LAB BLOOD ORDERABLES Naina l Result [address] [address], [address] [address] * (ABNORMAL) Hemoglobin and Hematocrit (09/09/2024 5:49 AM EDT) Hematocrit 23.0(L) 39.0 - 54.0 % 09/09/2024 6:25 AM EDT [facility] Hemoglobin 7.8(L) 13.0 - 17.7 g/dL 09/09/2024 6:25 AM EDT [facility] Blood Blood specimen / Unknown 09/09/2024 5:49 AM EDT 09/09/2024 6:15 AM EDT Bailey Monzon PA-C LAB BLOOD ORDERABLES Naina l Result Performing Organization Address [facility] Co de Phone Number [address] [address], [address] [address] * (ABNORMAL) POCT Glucose, Fingerstick (09/09/2024 3:29 AM EDT) POC Glucose 133(H) 65 - 99 mg/dL 09/09/2024 3:44 AM EDT Blood specimen / Unknown 09/09/2024 3:29 AM EDT 09/09/2024 3:44 AM EDT Danny Barr MD POINT OF CARE TEST ORDERABLES Fi nal Result Performing Organization Address [facility] Co de Phone Number [facility] See Below * (ABNORMAL) POCT Glucose, Fingerstick (09/08/2024 11:33 PM EDT) POC Glucose 131(H) 65 - 99 mg/dL 09/08/2024 11:38 PM EDT Blood specimen / Unknown 09/08/2024 11:33 PM EDT 09/08/2024 11:38 PM EDT Danny Barr MD POINT OF CARE TEST ORDERABLES Fi nal Result Performing Organization Address [facility]/ZIP Co de Phone Number [facility] See Below * (ABNORMAL) Blood Gas, Arterial, once today (09/08/2024 11:09 PM EDT) pH, Arterial 7.30(L) 7.35 - 7.45 09/08/2024 11:44 PM EDT [facility] pCO2, Arterial 50(H) 32 - 45 mmHG 09/08/2024 11:44 PM EDT [facility] pO2, Arterial 229(H) 75 - 95 mmHG 09/08/2024 11:44 PM EDT [facility] CO2, Total 26 22 - 28 mmol/L 09/08/2024 11:44 PM EDT [facility] Respiratory Info VENT 40% 09/09/19 25 11:10 PM EDT [facility] P/F Ratio 573 09/08/2024 11:44 PM EDT [facility] Base Deficiency 2.3 mmol/L 11:44 PM EDT [facility] Comment:Reference Range: Neg ative 2 to Positive 3 Blood Blood specimen / Unknown 09/08/2024 11:09 PM EDT 09/08/2024 11:39 PM EDT Marie Chamberlain PA-C LAB BLOOD ORDERABLES Final Result Performing Organization Address [facility]/[place] [address], [address] [address] * Folate Level (09/08/2024 11:09 PM EDT) Folate, Serum Specimen hemolyzed. Test not performed. >7.2 ng/mL 09/09/2024 1:01 AM EDT [facility] Blood Blood specimen / Unknown 09/08/2024 11:09 PM EDT 09/08/2024 11:47 PM EDT Marie Chamberlain PA-C LAB BLOOD ORDERABLES Final Result Performing Organization Address [facility]/ZIP Co de Phone Number [address] [address], [address] [address] * IRON (09/08/2024 11:09 PM EDT) Iron 126 53 - 167 ug/dL 09/09/2024 12:07 AM EDT [facility] Blood Blood specimen / Unknown 09/08/2024 11:09 PM EDT 09/08/2024 11:46 PM EDT Marie Chamberlain PA-C LAB BLOOD ORDERABLES Final Result Performing Organization Address City/[facility]/ZIP Co de Phone Number [address] [address], [address] [address] * (ABNORMAL) VITAMIN B12 (09/08/2024 11:09 PM EDT) Vitamin B12 904(H) 243 - 894 pg/mL 09/09/2024 12:41 AM EDT [facility] Blood Blood specimen / Unknown 09/08/2024 11:09 PM EDT 09/08/2024 11:46 PM EDT Marie VELASCO-C LAB BLOOD ORDERABLES Final Result [address] [address], [address] [address] * (ABNORMAL) PHOSPHORUS (09/08/2024 11:09 PM EDT) Phosphorus 4.9(H) 2.7 - 4.5 mg/dL 09/09/2024 12:07 AM EDT [facility] Blood Blood specimen / Unknown 09/08/2024 11:09 PM EDT 09/08/2024 11:46 PM EDT Marie VELASCO-C LAB BLOOD ORDERABLES Final Result Performing Organization Address City/[facility]/ZIP Co de Phone Number [address] [address], [address] [address] * (ABNORMAL) MAGNESIUM (09/08/2024 11:09 PM EDT) Magnesium 3.1(H) 1.6 - 2.7 mg/dL 09/09/2024 12:07 AM EDT [facility] Blood Blood specimen / Unknown 09/08/2024 11:09 PM EDT 09/08/2024 11:46 PM EDT us Marie VELASCO-C LAB BLOOD ORDERABLES Final Result [address] [address], [address] [address] * (ABNORMAL) BASIC METABOLIC PANEL (09/08/2024 11:09 PM EDT) Glucose 136(H) 65 - 99 mg/dL 09/09/2024 12:07 AM [facility] Comment:Fasting: <100 mg/dL, Non-Fasting: <200 mg/dL (ADA 2004) Blood Urea Nitrogen (BUN) 70(H) 8 - 21 mg/dL 09/09/2024 12:07 AM [facility] Creatinine 1.4(H) 0.5 - 1.3 mg/dL 09/09/2024 12:07 AM [facility] eGFR 57(L) >59 09/09/2024 12:07 AM [facility] Comment:CKD-EPI (2020) in mL /min/1.73 sq meters. Sodium 146(H) 136 - 145 mmol/L 09/09/2024 12:07 AM [facility] Potassium 4.9 3.4 - 5.3 mmol/L 09/09/2024 12:07 AM [facility] Chloride 115(H) 98 - 107 mmol/L 09/09/2024 12:07 AM [facility] CO2 22 22 - 33 mmol/L 09/09/2024 12:07 AM [facility] Anion Gap 9 7 - 17 09/09/2024 12:07 AM [facility] Calcium 8.0(L) 8.7 - 10.5 mg/dL 09/09/2024 12:07 AM [facility] BUN/Creatinine Ratio 50(H) 10.0 - 25.0 Ratio 09/09/2024 12:07 AM [facility] Blood Blood specimen / Unknown 09/08/2024 11:09 PM EDT 09/08/2024 11:46 PM EDT Marie Chamberlain PA-C LAB BLOOD ORDERABLES Final Result [address] [address], [address] [address] * (ABNORMAL) Complete Blood Count WITHOUT Differential - in AM (09/08/2024 11:09 PM EDT) White Blood Cell Count 12.1(H) 4.0 - 11.0 Thou/uL 09/08/2024 11:55 PM [facility] Platelet Count 42(L) 150 - 450 Thou/uL 09/08/2024 11:55 PM [facility] Hemoglobin 7.9(L) 13.0 - 17.7 g/dL 09/08/2024 11:55 PM [facility] Hematocrit 23.3(L) 39.0 - 54.0 % 09/08/2024 11:55 PM [facility] Red Blood Cell Count 2.51(L) 4.50 - 6.20 Mil/uL 09/08/2024 11:55 PM [facility] MCV 93 80 - 100 fL 09/08/2024 11:55 PM [facility] MCH 31.5(H) 27.0 - 31.0 pg 09/08/2024 11:55 PM [facility] MCHC 33.9 30.0 - 36.0 g/dL 09/08/2024 11:55 PM [facility] RDW 14.5 11.5 - 14.5 % 09/08/2024 11:55 PM [facility] MPV 12.4 7.5 - 12.5 fL 09/08/2024 11:55 PM [facility] Immature Platelet Fraction 9.3(H) 1.2 - 8.6 % 09/08/2024 11:55 PM [facility] Blood Blood specimen / Unknown 09/08/2024 11:09 PM EDT 09/08/2024 11:46 PM EDT Marie Chamberlain PA-C LAB BLOOD ORDERABLES Final Result [address] [address], [address] [address] * (ABNORMAL) Hemoglobin A1C with Estimated Average Glucose (09/08/2024 11:09 PM EDT) Hemoglobin A1C 5.8(H) <5.7 % 09/09/2024 12:28 AM EDT [facility] Comment: A1c% ? Interpretation 5.7 - 6.0 ?Increase risk of diabetes 6.1 - 6.4 ?Higher risk of diabetes > or = 6.5 ?? Consistent with diabetes Diabetes Care, 33(Supp 1):S1-S61, 2010 Estimated Average Glucose 120 mg/dL 09/09/2024 12:28 AM EDT [facility] Blood Blood specimen / Unknown 09/08/2024 11:09 PM EDT 09/08/2024 11:46 PM EDT Marie Chamberlain PA-C LAB BLOOD ORDERABLES Final Result Performing Organization Address City/State/[facility] Co de Phone Number [address] [address], [place] [address] * Transfuse Platelets:Transfusion Indications: Bone marrow failure/suppression and Plt count less than or equal to 20K and risk factors of bleeding or stem cell/bone marrow transplant patients (09/08/2024 8:50 PM EDT) Marie Chamberlain PA-C BLOOD TRANSFUSION ORDERABL ES Final Result * Transfuse Platelets:Transfusion Indications: Bone marrow failure/suppression and Plt count less than or equal to 20K and risk factors of bleeding or stem cell/bone marrow transplant patients (09/08/2024 8:50 PM EDT) Marie Chamberlain PA-C BLOOD TRANSFUSION ORDERABL ES Final Result * (ABNORMAL) POCT Glucose, Fingerstick (09/08/2024 7:59 PM EDT) POC Glucose 148(H) 65 - 99 mg/dL 09/08/2024 8:00 PM EDT Blood specimen / Unknown 09/08/2024 7:59 PM EDT 09/08/2024 8:00 PM EDT us Danny Barr MD POINT OF CARE TEST ORDERABLES Fi nal Result [facility] See Below * (ABNORMAL) Blood Gas, Arterial, once today (09/08/2024 4:09 PM EDT) pH, Arterial 7.33(L) 7.35 - 7.45 09/08/2024 4:42 PM EDT [facility] pCO2, Arterial 44 32 - 45 mmHG 09/08/2024 4:42 PM EDT [facility] pO2, Arterial 152(H) 75 - 95 mmHG 09/08/2024 4:42 PM EDT [facility] CO2, Total 24 22 - 28 mmol/L 09/08/2024 4:42 PM EDT [facility] Respiratory Info VENT 60% 09/09/19 25 4:09 PM EDT [facility] P/F Ratio 253 09/08/2024 4:42 PM EDT [facility] Comment:P/F < 300 or < 200: question ALI or ARDS. Base Deficiency 3.1 mmol/L 4:42 PM EDT [facility] Comment:Reference Range: Neg ative 2 to Positive 3 Blood Blood specimen / Unknown 09/08/2024 4:09 PM EDT 09/08/2024 4:34 PM EDT us Marie Chamberlain PA-C LAB BLOOD ORDERABLES Final Result Performing Organization Address [facility] Co de Phone Number [address] [address], [address] [address] * HIV 1/2 Ag/Ab CMIA Reflex to Confirmation (09/08/2024 4:09 PM EDT) HIV 1/2 Ag/Ab CMIA Nonreactive Nonreactive 09/11/2024 11:39 AM EDT [facility] Comment: Results show no evidence of infection by HIV 1/2. If clinically indicated, repeat CMIA or test by nucleic acid amplification. HIV 1/2 Antigen/Antibody CMIA reflex to confirmation AND HIV-1 RNA viral load recommended in patients who are taking or have recently taken PrEP. Blood Blood specimen / Unknown 09/08/2024 4:09 PM EDT 09/08/2024 4:41 PM EDT Marie Chamberlain PA-C LAB BLOOD ORDERABLES Final Result [facility] [address] [place] [address], * (ABNORMAL) C-REACTIVE PROTEIN (09/08/2024 4:09 PM EDT) C-Reactive Protein 20.80(H) 0 - 0.49 mg/dL 09/08/2024 5:16 PM EDT [facility] Blood Blood specimen / Unknown 09/08/2024 4:09 PM EDT 09/08/2024 4:41 PM EDT Marie Chamberlain PA-C LAB BLOOD ORDERABLES Final Result Performing Organization Address [facility] Co de Phone Number [address] [address], [address] [address] * (ABNORMAL) Erythrocyte Sedimentation Rate (ESR) (09/08/2024 4:09 PM EDT) Erythrocyte Sediment Rate (ESR) 32(H) <20 MM/HR 09/08/2024 4:57 PM EDT [facility] Blood Blood specimen / Unknown 09/08/2024 4:09 PM EDT 09/08/2024 4:41 PM EDT Marie Chamberlain PA-C LAB BLOOD ORDERABLES Final Result Performing Organization Address City/[facility]/ZIP Co de Phone Number [address] [address], [address] [address] * (ABNORMAL) FERRITIN (09/08/2024 4:09 PM EDT) Ferritin 913(H) 30 - 400 ug/L 09/08/2024 5:16 PM EDT [facility] Blood Blood specimen / Unknown 09/08/2024 4:09 PM EDT 09/08/2024 4:41 PM EDT us Marie Chamberlain PA-C LAB BLO[place] [address], [place] [address] * Prepare Platelets:Prepare in: Doses; Number of doses: 1; Transfusion Indications: Bone marrow failure/suppression and Plt count less than or equal to 20K and risk factors of bleeding or stem cell/bone marrow transplant patients (09/08/2024 3:48 PM EDT) Units Ordered 1 09/08/2024 3:49 PM EDT Unit Number [id number] 09/08/2024 4:06 PM EDT [facility] Blood Component Type Apheresis Platelets (7d) Leukocytes Reduced - 1st container 09/08/2024 4:06 PM EDT [facility] Unit Division 00 09/08/2024 4:06 PM EDT [facility] Unit Status REL FROM ALLOC 5:30 PM EDT [facility] Transfusion Status OK TO TRANSFUSE 09/08/2024 4:06 PM EDT [facility] Unit Number [id number] 09/08/2024 5:24 PM EDT [facility] Blood Component Type Pathogen Reduced apheresis platelet 09/08/2024 5:24 PM EDT [facility] Unit Division 00 09/08/2024 5:24 PM EDT [facility] Unit Status ISSUED,FINAL 09/09/2024 12:25 AM EDT [facility] Transfusion Status OK TO TRANSFUSE 09/08/2024 5:24 PM EDT [facility] 09/08/2024 3:48 PM EDT 09/08/2024 4:03 PM EDT Marie Chamberlain PA-C BLOOD BANK PRODUCT ORDERAB LES Final Result Performing Organization Address City/[facility]/ZIP Co de Phone Number HOSPITAL LAB See Below [address] [address] * (ABNORMAL) POCT Glucose, Fingerstick (09/08/2024 3:46 PM EDT) POC Glucose 132(H) 65 - 99 mg/dL 09/08/2024 4:02 PM EDT Blood specimen / Unknown 09/08/2024 3:46 PM EDT 09/08/2024 4:02 PM EDT Danny Barr MD POINT OF CARE TEST ORDERABLES Fi nal Result Performing Organization Address [facility]/ZIP Co de Phone Number [facility] See Below * Differential, Body Fluid (09/08/2024 1:31 PM EDT) Differential Source, Body Fluid Bronchoalveolar Lavage 09/08/2024 10:30 PM EDT [facility] Neutrophil, Body Fluid 94 % 09/08/2024 10:30 PM EDT [facility] Lymphoctye, Body Fluid 2 % 09/08/2024 10:30 PM EDT [facility] Monocyte, Body Fluid 1 % 09/08/2024 10:30 PM EDT [facility] Histiocyte, Body Fluid 3 % 09/08/2024 10:30 PM EDT [facility] Smear Comment, Body Fluid The reference interval and other method performance specifications are unavailable for this body fluid. Comparison of the result with concentration in the blood, serum, or plasma is recommended 09/08/2024 10:30 PM EDT [facility] Bronchus, right middle lobe 09/08/2024 1:31 PM EDT 09/08/2024 2:43 PM EDT Marie Chamberlain PA-C BODY FLUIDS AND STOOLS ORD ERABLES Final Result Performing Organization Address [facility] Co de Phone Number [address] [address], [address] [address] * Legionella Culture (09/08/2024 1:31 PM EDT) Culture No Legionella isolated 09/22/2024 9:15 AM EDT [facility] Bronchoalveolar Lavage (Bronchus, right middle lobe) 09/08/2024 1:31 PM EDT 09/08/2024 2:17 PM EDT Comment:Bronchoalveolar Lava ge Marie Chamberlain PA-C MICROBIOLOGY - GENERAL ORD ERABLES Final Result [facility] [address] [place] [address], * Cell Count, Reflex Differential, Body Fluid (09/08/2024 1:31 PM EDT) Appearance, Body Fluid Cloudy 09/08/2024 6:23 PM EDT [facility] Color [facility] 09/08/2024 6:23 PM EDT [facility] Nucleated Cells, Fluid 110 /CUMM 09/08/2024 6:23 PM EDT [facility] Comment: The reference interval and other method performance specifications are unavailable for this body fluid. Comparison of the result with concentration in the blood, serum, or plasma is recommended Macroscopic clot present--question accuracy of results. Macroscopic particles present. ??Question accuracy of results. RBC, Fluid 4,455 /CUMM 09/08/2024 6:23 PM EDT [facility] Comment: The reference interval and other method performance specifications are unavailable for this body fluid. Comparison of the result with concentration in the blood, serum, or plasma is recommended Macroscopic clot present--question accuracy of results. Macroscopic particles present. ??Question accuracy of results. Bronchoalveolar Lavage (Bronchus, right middle lobe) 09/08/2024 1:31 PM EDT 09/08/2024 2:43 PM EDT Marie Chamberlain PA-C BODY FLUIDS AND STOOLS ORD ERABLES Final Result Performing Organization Address City/[facility]/ZIP Co de Phone Number [facility] [address] [place] [address], [address] [place] [address] * Pneumocystis jirovecii (carinii) DFA (09/08/2024 1:31 PM EDT) Smear Result/Comment Not Detected Not Detected 09/11/2024 5:33 PM EDT [employer] [place] Specimen Source REPORT 5:33 PM EDT [facility] [place] Comment: (NOTE) Bronchial Lavage CORRECTED ON 09/11 AT 1733: PREVIOUSLY REPORTED Bronchus, Right Middle Lobe Bronchoalveolar Lavage Bronchoalveolar Lavage (Bronchus, right middle lobe) 09/08/2024 1:31 PM EDT 09/08/2024 2:34 PM EDT us Marie Chamberlain PA-C MICROBIOLOGY - GENERAL ORD ERABLES Edited Result - Final [employer] [id number] [place] [address] [id number] [place] [address] , [employer], [place] [address] [facility] [address] [place] [address] * Respiratory Culture (Aerobic and Gram stain) (09/08/2024 1:31 PM EDT) Gram stain suggestive of No neutrophils No squamous cells No organisms seen 09/08/2024 2:52 PM EDT [facility] Culture Negative after 2 days 09/10/2024 8:36 AM EDT [facility] Bronchoalveolar Lavage (Bronchus, right middle lobe) 09/08/2024 1:31 PM EDT 09/08/2024 2:19 PM EDT Comment:Bronchoalveolar Lava ge Marie Chamberlain PA-C MICROBIOLOGY - GENERAL ORD ERABLES Final Result [facility] [address] [place] [address], [facility] [address] [place] [address] * Cytology (09/08/2024 1:27 PM EDT) Report [facility] CT [id number] ?? CLIA ID [id number] [address] [place] [address] ??[id number] / [phone] Cytopathology Report PATIENT NAME: MARIAH MASTERSON REC NUMBER: [id number] (AGE): 1960 (Age: 63) SPECIMEN NUMBER: [id number] DATE OBTAINED: 09/08/2024 DIAGNOSIS: A. ??RIGHT MIDDLE [...] BRONCHU S Bronchial Washing WITH CELL BLOCK us Marie Chamberlain PA-C PATHOLOGY/CYTOLOGY ORDERAB LES Final Result [facility] See Below * (ABNORMAL) Blood Gas, Arterial, once today (09/08/2024 12:23 PM EDT) pH, Arterial 7.40 7.35 - 7.45 09/08/2024 12:47 PM EDT [facility] pCO2, Arterial 36 32 - 45 mmHG 09/08/2024 12:47 PM EDT [facility] pO2, Arterial 190(H) 75 - 95 mmHG 09/08/2024 12:47 PM EDT [facility] CO2, Total 23 22 - 28 mmol/L 09/08/2024 12:47 PM EDT [facility] Respiratory Info VENT 90% 09/09/19 12:23 PM EDT [facility] P/F Ratio 211 09/08/2024 12:47 PM EDT [facility] Comment:P/F < 300 or < 200: question ALI or ARDS. Base Deficiency 2.3 mmol/L 12:47 PM EDT [facility] Comment:Reference Range: Neg ative 2 to Positive 3 Blood Blood specimen / Unknown 09/08/2024 12:23 PM EDT 09/08/2024 12:41 PM EDT Marie Chamberlain PA-C LAB BLOOD ORDERABLES Final Result Performing Organization Address [facility] Co de Phone Number [address] [address], [address] [address] * Pathology Smear Review, Whole Blood (09/08/2024 12:15 PM EDT) Smear Origin Smear sent for physician review. 09/08/2024 2:34 PM EDT [facility] Pathology Comment Smear reivew: 09/12/2024 12:40 AM EDT [facility] Comment: Granulocytosis: consider infection or other reactive process. Anemia and thrombocytopenia--smear not diagnostic of etiology. Target cells--consider liver disease, hemoglobinopathy or other etiology. Clinical correlation and follow up recommended. Onofre Larsen MD,PhD. (las) Blood specimen / Unknown 09/08/2024 12:15 PM EDT 09/08/2024 1:02 PM EDT Onofre Barnett PA-C PATHOLOGY/CYTOLOGY ORDERABL ES Final Result Performing Organization Address [facility] Co de Phone Number [address] [address], [address] [address] * (ABNORMAL) proBNP, N-terminal (09/08/2024 12:15 PM EDT) proBNP, N-terminal 3,773(H) <125 pg/mL 09/08/2024 2:08 PM EDT [facility] 09/08/2024 12:1 5 PM EDT 09/08/2024 1:02 PM EDT Onofre VELASCO-C LAB BLOOD ORDERABLES Final Result Performing Organization Address [facility] Co de Phone Number [address] [address], [address] [address] * (ABNORMAL) Platelet Count (09/08/2024 12:15 PM EDT) Pathologist [facility] Platelet Count 16(LL) 150 - 450 Thou/uL 09/08/2024 1:40 PM EDT [facility] Immature Platelet Fraction 18.5(H) 1.2 - 8.6 % 09/08/2024 1:40 PM EDT [facility] Blood specimen / Unknown 09/08/2024 12:15 PM EDT 09/08/2024 1:02 PM EDT Onofre VELASCO-C LAB BLOOD ORDERABLES Final Result Performing Organization Address [facility] Co de Phone Number [address] [address], [address] [address] * (ABNORMAL) Triglycerides (09/08/2024 12:15 PM EDT) Triglycerides 363(H) <150 mg/dL 09/08/2024 1:34 PM EDT [facility] Blood Blood specimen / Unknown 09/08/2024 12:15 PM EDT 09/08/2024 1:02 PM EDT Marie VELASCO-Ryan LAB BLOOD ORDERABLES Final Result Performing Organization Address [facility] Co de Phone Number [address] [address], [address] [address] * Red Blood Cell Morphology (09/08/2024 12:15 PM EDT) Normochromic Present 09/08/2024 1:54 PM EDT [facility] Normocytic Present 09/08/2024 1:54 PM EDT [facility] Blood Blood specimen / Unknown 09/08/2024 12:15 PM EDT 09/08/2024 1:02 PM EDT us Onofre Hare Anibal PA-C LAB BLOOD ORDERABLES Final Result Performing Organization Address [facility] Co de Phone Number [address] [address], [address] [address] * (ABNORMAL) RETICULOCYTE COUNT (09/08/2024 12:15 PM EDT) [facility] Reticulocyte Count 0.4(L) 0.7 - 2.0 % 09/08/2024 1:40 PM EDT [facility] Reticulocyte, Absolute 13.9(L) 30.0 - 100.0 Thou/uL 09/08/2024 1:40 PM EDT [facility] Retic Hemoglobin Content 30.10 28 - 35 pg 09/08/2024 1:40 PM EDT [facility] Immature Reticulocyte Fraction 4.7 2.3 - 15.9 % 09/08/2024 1:40 PM EDT [facility] Blood Blood specimen / Unknown 09/08/2024 12:15 PM EDT 09/08/2024 1:02 PM EDT us Onofre Hare Anibal VELASCO-C LAB BLOOD ORDERABLES Final Result Performing Organization Address City/[facility] Co de Phone Number [address] [phone], [address] [address] * (ABNORMAL) HEPATIC FUNCTION PANEL (09/08/2024 12:15 PM EDT) Alkaline Phosphatase 66 45 - 128 U/L 09/08/2024 1:34 PM EDT [facility] Aspartate Aminotrans (AST) 48 10 - 55 U/L 09/08/2024 1:34 PM EDT [facility] Alanine Aminotrans (ALT) 20 10 - 55 U/L 09/08/2024 1:34 PM EDT [facility] Bilirubin, Total 3.2(H) 0.2 - 1.0 mg/dL 09/08/2024 1:34 PM EDT [facility] Protein, Total 5.2(L) 6.3 - 8.3 g/dL 09/08/2024 1:34 PM EDT [facility] Albumin 2.6(L) 3.4 - 4.8 g/dL 09/08/2024 1:34 PM EDT [facility] Bilirubin, Direct 2.4(H) 0 - 0.2 mg/dL 09/08/2024 1:34 PM EDT [facility] Globulin 2.6 1.5 - 3.9 g/dL 09/08/2024 1:34 PM EDT [facility] Albumin/Globulin Ratio 1.0 1.0 - 3.0 Ratio 09/08/2024 1:34 PM EDT [facility] Blood Blood specimen / Unknown 09/08/2024 12:15 PM EDT 09/08/2024 1:02 PM EDT Onofre VELASCO-C LAB BLOOD ORDERABLES Final Result Performing Organization Address City/[facility]/[place] [address], [place] [address] * HAPTOGLOBIN (09/08/2024 12:15 PM EDT) Haptoglobin 137 30 - 200 mg/dL 09/08/2024 1:34 PM EDT [facility] Comment:Specimen hemolyzed. Results may be artifactually elevated. Blood Blood specimen / Unknown 09/08/2024 12:15 PM EDT 09/08/2024 1:02 PM EDT Onofre Barnett PA-C LAB BLOOD ORDERABLES Final Result Performing Organization Address [facility]/[place] [address], [address] [address] * (ABNORMAL) Lactate Dehydrogenase (LDH) (09/08/2024 12:15 PM EDT) Lactate Dehydrogenase (LDH) 436(H) 120 - 260 U/L 09/08/2024 1:34 PM EDT [facility] Blood Blood specimen / Unknown 09/08/2024 12:15 PM EDT 09/08/2024 1:02 PM EDT us Onofre Barnett PA-C LAB BLOOD ORDERABLES Final Result Performing Organization Address City/[facility]/ZIP Co de Phone Number [address] [address], [address] [address] * (ABNORMAL) Legionella & Streptococcus Pneumoniae Antigen, Urine (09/08/2024 12:15 PM EDT) Legionella Antigen EIA, Urine Presumptive Negative Presumptive Negative 09/09/2024 9:00 AM EDT [facility] Comment: Presumptive Negative [...] Positive(A) Presumptive Negative 09/09/2024 9:00 AM EDT [facility] Comment:Presumptive Positive for Pneumococcal Pneumonia, suggesting current or past infection. Urine Urine specimen / Unknown 09/08/2024 12:15 PM EDT 09/08/2024 1:06 PM EDT us Onofre Barnett PA-C URINE ORDERABLES Final Resu lt [facility] [address] [place] [place] [address], [place] * CT Thorax w/o contrast (09/08/2024 12:07 [...] cm, may represent pericardial fluid/pericardial cyst. Torri VELASCO [facility] ORDERABLES Final R esult * CT [...] Chest 1 view-Portable (09/08/2024 10:32 AM EDT) Anatomical Region Laterality Modality Chest Computed Radiogr [...] in bilateral airspace opacities. Onofre Barnett PA-C [facility] ORDE ROD Final Result * XR Chest 1 view-Portable (09/08/2024 9:59 AM EDT) Anatomical Region Laterality Modality Chest Computed Radiogr aphy 09/08/2024 7:51 AM EDT Impressions 09/11/2024 9:11 AM EDT Unchanged diffuse bilateral interstitial and alveolar opacification. Narrative 09/11/2024 9:11 AM EDT EXAMINATION: XR CHEST CLINICAL INFORMATION: Worsening hypoxia. COMPARISON: XR Chest 09/07/2024; CT Chest with IV contrast 09/06/2024 TECHNIQUE: One view of the chest was obtained. FINDINGS: Stable cardiac size. Unchanged diffuse bilateral interstitial and alveolar opacification. No pneumothorax. Procedure Note Jarvis Fofana MD - 09/11/2024 EXAMINATION: XR CHEST CLINICAL INFORMATION: Worsening hypoxia. COMPARISON: XR Chest 09/07/2024; CT Chest with IV contrast 09/06/2024 TECHNIQUE: One view of the chest was obtained. FINDINGS: Stable cardiac size. Unchanged diffuse bilateral interstitial and alveolar opacification. No pneumothorax. IMPRESSION: Unchanged diffuse bilateral interstitial and alveolar opacification. Marie Chamberlain PA-C [facility] ORD ERABLES Final Result * VAS VENOUS DUPLEX LEG (DVT)-BILATERAL (09/08/2024 9:26 AM EDT) Anatomical Region Laterality Modality Ultrasound 09/08/2024 7:40 AM EDT Narrative 09/08/2024 11:29 AM EDT Table formatting from the original result was not included. ?? Department: [facility] Patient: [id number] (MARIAH MASTERSON) ?? Patient Location: ..[id number].[facility] CPT Code: 27246 ICD-9: ?? Referring Physician: MARIE CHAMBERLAIN Impression Bilaterally, the duplex ultrasound of the lower extremities demonstrates normal Doppler flow with no thrombus seen in patterson scale. ??Findings are not consistent with the [...] ??Normal ?Complete ?? Electronically Signed by: KELLY SRINIVASAN III, MD,RPVI on 2024-09-08 11:29:29 AM End of Report Procedure Note Kelly Srinivasan III, MD - 09/08/2024 Department: [facility] Patient: [id number] (MARIAH MASTERSON) Patient Location: ..[address] CPT Code: 18544 ICD-9: Referring Physician: MARIE CHAMBERLAIN Impression Bilaterally, the duplex ultrasound of the lower extremities demonstratesnormal Doppler flow with no thrombus seen in patterson scale. Findings are notconsistent with the presence [...] junction Normal Complete Electronically Signed by: KELLY SRINIVASAN III, MD,RPNAGA on :29:29 AM End of Report Marie Chamberlain PA-C VASCULAR LAB ORDERABLES Fi nal Result * (ABNORMAL) POCT Glucose, Fingerstick (09/08/2024 8:13 AM EDT) POC Glucose 143(H) 65 - 99 mg/dL 09/09/2024 7:51 PM EDT Blood specimen / Unknown 09/08/2024 8:13 AM EDT 09/09/2024 7:51 PM EDT Danny Barr MD POINT OF CARE TEST ORDERABLES Fi nal Result HOSPITAL LAB See Below * ECG 12 lead (09/08/2024 8:11 AM EDT) Pathologist [facility] [place] Systolic BP 134 mmHg EKG [facility] Diastolic BP 62 mmHg EKG [facility] Ventricular rate 87 BPM EKG [facility] Atrial rate 87 BPM EKG [facility] P-R interval 128 ms EKG [facility] QRS duration 146 ms EKG [facility] Q-T interval 420 ms EKG [facility] QTC calculation (Bazett) 505 ms EKG [facility] P axis 67 degrees EKG [facility] R axis 102 degrees EKG [facility] T axis 64 degrees EKG [facility] 09/08/2024 8:11 AM EDT Narrative EKG [facility] - 09/08/2024 3:21 PM EDT Normal sinus rhythm Right bundle branch block Abnormal ECG When compared with ECG of 07-Sep-2024 22:05, (unconfirmed) Premature supraventricular complexes are no longer Present Vent. rate has decreased by ??58 bpm Confirmed by DO Holm Kyla ([id number]) on 09/08/2024 3:21:12 PM Procedure Note Alta Holm DO - 09/08/2024 Normal sinus rhythm Right bundle branch block Abnormal ECG When compared with ECG of 07-Sep-2024 22:05, (unconfirmed) Premature supraventricular complexes are no longer Present Vent. rate has decreased by 58 bpm Confirmed by DO Holm Kyla ([id number]) on 09/08/2024 3:21:12 PM Danny Barr MD ECG ORDERABLES Final Result EKG [facility] * Transfuse Platelets:Transfusion Indications: Plt count less than or equal to 50K and bleeding (09/08/2024 5:34 AM EDT) Nanci Guerra PA-C BLOOD TRANSFUSION ORDERABL ES Final Result * Transfuse Platelets:Transfusion Indications: Plt count less than or equal to 50K and bleeding (09/08/2024 5:34 AM EDT) Nanci Guerra PA-C BLOOD TRANSFUSION ORDERABL ES Final Result * Influenza A/B, RSV, SARS-CoV-2 JEFF Multiplex (FLUVID) (09/08/2024 5:24 AM EDT) Influenza A Virus Not Detected Not Detected 09/08/2024 7:29 AM EDT [facility] Influenza B Virus Not Detected Not Detected 09/08/2024 7:29 AM EDT [facility] SARS-CoV-2 Not Detected Not Detected 09/08/2024 7:29 AM EDT [facility] Respiratory Syncytial Virus Not Detected Not Detected 09/08/2024 7:29 AM EDT [facility] Comment Negative results do not preclude SARS-CoV-2, Influenza or RSV infection and should not be used as the sole basis for treatment or other patient management decisions. 09/08/2024 7:29 AM EDT [facility] Swab, Nasopharyngeal Nasopharyngeal swab / Unknown 09/08/2024 5:24 AM EDT 09/08/2024 6:03 AM EDT Nanci Guerra PA-C MICROBIOLOGY - GENERAL ORD ERABLES Final Result Performing Organization Address City/[facility] Co de Phone Number [address] [address], [address] [address] * (ABNORMAL) POCT Glucose, Fingerstick (09/08/2024 4:09 AM EDT) POC Glucose 142(H) 65 - 99 mg/dL 09/08/2024 4:09 AM EDT Blood specimen / Unknown 09/08/2024 4:09 AM EDT 09/08/2024 4:10 AM EDT Danny Barr MD POINT OF CARE TEST ORDERABLES Fi nal Result Performing Organization Address [facility] Co de Phone Number HOSPITAL LAB See Below * Prepare Platelets:Prepare in: Doses; Number of doses: 1; Transfusion Indications: Plt count less than or equal to 50K and bleeding (09/08/2024 2:48 AM EDT) Units Ordered 1 09/08/2024 2:49 AM EDT Unit Number [id number] 09/08/2024 2:52 AM EDT [facility] Blood Component Type Apheresis Platelets (7d) Leukocytes Reduced - 2nd container 09/08/2024 2:52 AM EDT [facility] Unit Division 00 09/08/2024 2:52 AM EDT [facility] Unit Status ISSUED,FINAL 09/09/2024 12:25 AM EDT [facility] Transfusion Status OK TO TRANSFUSE 09/08/2024 2:52 AM EDT [facility] 09/08/2024 2:48 AM EDT 09/08/2024 2:52 AM EDT Nanci Guerra PA-C BLOOD BANK PRODUCT ORDERAB LES Final Result Performing Organization Address City/[facility] Co de Phone Number HOSPITAL LAB See Below [address] [address] * (ABNORMAL) Blood Gas with Cooximetry, Venous (09/08/2024 2:17 AM EDT) Pathologist [facility] [place] Respiratory Info OTHER 09/09/19 2:17 AM EDT [facility] Venous Blood PH 7.38 7.33 - 7.43 [facility] pCO2 37 35 - 50 mmHG 09/08/2024 2:41 AM EDT [facility] Venous pO2 49 0 - 60 mmHG 09/08/2024 2:41 AM [facility] Venous Total CO2 22(L) 23 - 29 mmol/L 09/08/2024 2:41 AM [facility] Base Deficiency 2.9 mmol/L 2:41 AM [facility] Comment:Reference Range: Neg ative 2 to Positive 3 Hemogloblin, Total 11.0(L) 13.0 - 17.7 g/dL 09/08/2024 2:41 AM [facility] O2 Saturation, Venous 83.5 % 2:41 AM [facility] Carboxyhemoglobin 1.6 0.0 - 2.0 % 09/08/2024 2:41 AM [facility] Methemoglobin 0.7 0.4 - 1.5 % 09/08/2024 2:41 AM [facility] Venous O2 Content 12.7 7.2 - 17.2 mL/dL 09/08/2024 2:41 AM [facility] Blood Blood specimen / Unknown 09/08/2024 2:17 AM EDT 09/08/2024 2:37 AM EDT us Nanci Guerra PA-C LAB BLOOD ORDERABLES Final Result [address] [address], [address] [address] * (ABNORMAL) Fibrinogen Level (09/08/2024 1:32 AM EDT) Pathologist [facility] [place] Fibrinogen 579(H) 148 - 435 mg/dL 09/08/2024 2:13 AM EDT [facility] Blood Blood specimen / Unknown 09/08/2024 1:32 AM EDT 09/08/2024 1:55 AM EDT us Nanci Faroese PA-C LAB BLOOD ORDERABLES Final Result Performing Organization Address City/[facility]/[place] [address], [address] [address] * (ABNORMAL) Thrombin Time (09/08/2024 1:32 AM EDT) Anticoagulant NO ANTI COAGULANT MEDS 09/08/2024 1:33 AM EDT [facility] Thrombin Time 12.2(L) 12.7 - 19.2 seconds 09/08/2024 2:13 AM EDT [facility] Blood Blood specimen / Unknown 09/08/2024 1:32 AM EDT 09/08/2024 1:55 AM EDT us Nanci Faroese PA-C LAB BLOOD ORDERABLES Final Result Performing Organization Address City/[facility]/[place] [address], [address] [address] * Partial Thromboplastin Time (PTT) (09/08/2024 1:32 AM EDT) Anticoagulant NO ANTI COAGULANT MEDS 09/08/2024 1:32 AM EDT [facility] Partial Thromboplastin Time (PTT) 27 25 - 36 seconds 09/08/2024 2:13 AM EDT [facility] Blood Blood specimen / Unknown 09/08/2024 1:32 AM EDT 09/08/2024 1:55 AM EDT us Nanci Faroese PA-C LAB BLOOD ORDERABLES Final Result Performing Organization Address City/[facility]/[place] [address], [address] [place] [address] * (ABNORMAL) Protime-INR (09/08/2024 1:32 AM EDT) Anticoagulant NO ANTI COAGULANT MEDS 09/08/2024 1:32 AM EDT [facility] Prothrombin Time (PT) 14.4(H) 10.0 - 13.5 seconds 09/08/2024 2:13 AM EDT [facility] INR 1.3 09/08/2024 2:13 AM EDT [facility] Comment:INR Therapeutic Rang es: Standard dose anticoagulant 2.0 to 3.0, High dose anticoagulant 2.5-3.5. Blood Blood specimen / Unknown 09/08/2024 1:32 AM EDT 09/08/2024 1:55 AM EDT Nanci Guerra PA-C LAB BLOOD ORDERABLES Final Result Performing Organization Address City/[facility]/[place] [address], [place] [address] * PHOSPHORUS (09/08/2024 1:17 AM EDT) Phosphorus 3.2 2.7 - 4.5 mg/dL 09/08/2024 2:23 AM EDT [facility] Blood Blood specimen / Unknown 09/08/2024 1:17 AM EDT 09/08/2024 1:54 AM EDT Torri VELASCO LAB BLOOD ORDERABLES Naina l Result [address] [address], [address] [address] * MAGNESIUM (09/08/2024 1:17 AM EDT) Magnesium 2.5 1.6 - 2.7 mg/dL 09/08/2024 2:23 AM EDT [facility] Blood Blood specimen / Unknown 09/08/2024 1:17 AM EDT 09/08/2024 1:54 AM EDT us Torri VELASCO LAB BLOOD ORDERABLES Naina koko Result [facility] [address] [place] [address], [address] [address] * (ABNORMAL) BASIC METABOLIC PANEL (09/08/2024 1:17 AM EDT) Glucose 145(H) 65 - 99 mg/dL 09/08/2024 2:23 AM EDT [facility] Comment:Fasting: <100 mg/dL, Non-Fasting: <200 mg/dL (ADA 2004) Blood Urea Nitrogen (BUN) 49(H) 8 - 21 mg/dL 09/08/2024 2:23 AM T [facility] Creatinine 1.1 0.5 - 1.3 mg/dL 09/08/2024 2:23 AM [facility] eGFR 76 >59 09/08/2024 2:23 AM T [facility] Comment:CKD-EPI (2020) in mL /min/1.73 sq meters. Sodium 143 136 - 145 mmol/L 09/08/2024 2:23 AM [facility] Potassium 4.0 3.4 - 5.3 mmol/L 09/08/2024 2:23 AM [facility] Chloride 112(H) 98 - 107 mmol/L 09/08/2024 2:23 AM [facility] CO2 20(L) 22 - 33 mmol/L 09/08/2024 2:23 AM [facility] Anion Gap 11 7 - 17 09/08/2024 2:23 AM [facility] Calcium 8.2(L) 8.7 - 10.5 mg/dL 09/08/2024 2:23 AM [facility] BUN/Creatinine Ratio 45(H) 10.0 - 25.0 Ratio 09/08/2024 2:23 AM [facility] Blood Blood specimen / Unknown 09/08/2024 1:17 AM EDT 09/08/2024 1:54 AM EDT Torri VELASCO LAB BLOOD ORDERABLES Naina l Result Performing Organization Address City/[facility]/ZIP Co de Phone Number [address] [address], [address] [address] * (ABNORMAL) COMPLETE BLOOD COUNT, WITHOUT DIFFERENTIAL (09/08/2024 1:17 AM EDT) White Blood Cell Count 14.2(H) 4.0 - 11.0 Thou/uL 09/08/2024 2:41 AM EDT [facility] Platelet Count 9(LL) 150 - 450 Thou/uL 09/08/2024 2:41 AM [facility] Comment: Results verified by smear review. Test results repeated. Hemoglobin 10.9(L) 13.0 - 17.7 g/dL 09/08/2024 2:41 AM [facility] Hematocrit 31.2(L) 39.0 - 54.0 % 09/08/2024 2:41 AM [facility] Red Blood Cell Count 3.49(L) 4.50 - 6.20 Mil/uL 09/08/2024 2:41 AM [facility] MCV 89 80 - 100 fL 09/08/2024 2:41 AM [facility] MCH 31.2(H) 27.0 - 31.0 pg 09/08/2024 2:41 AM [facility] MCHC 34.9 30.0 - 36.0 g/dL 09/08/2024 2:41 AM [facility] RDW 13.6 11.5 - 14.5 % 09/08/2024 2:41 AM [facility] Immature Platelet Fraction 30.2(H) 1.2 - 8.6 % 09/08/2024 2:41 AM [facility] Blood Blood specimen / Unknown 09/08/2024 1:17 AM EDT 09/08/2024 1:54 AM EDT Torri VELASCO LAB BLOOD ORDERABLES Naina l Result [address] [place] [address], [address] [address] * ABO Confirmation (09/08/2024 1:17 AM EDT) ABO/Rh A NEGATIVE 09/08/2024 2:58 AM EDT [facility] Blood Blood specimen / Unknown 09/08/2024 1:17 AM EDT 09/08/2024 2:19 AM EDT Aimee VELASCO BLOOD BANK TEST ORDERABLE S Final Result Performing Organization Address [facility]/ZIP Co de Phone Number [address] [address], [address] [address] * (ABNORMAL) POCT Glucose, Fingerstick (09/08/2024 12:02 AM EDT) POC Glucose 133(H) 65 - 99 mg/dL 09/08/2024 12:20 AM EDT Blood specimen / Unknown 09/08/2024 12:02 AM EDT 09/08/2024 12:20 AM EDT Danny Barr MD POINT OF CARE TEST ORDERABLES Fi nal Result Performing Organization Address City/[facility]/ZIP Co de Phone Number HOSPITAL LAB See Below * Flow Cytometry Report (09/08/2024 12:00 AM EDT) Report [facility] CT [id number] ?? CLIA ID [id number] [address] [place] [address] ??[id number] / [phone] Hematopathology Report PATIENT NAME: MARIAH MASTERSON [facility] REC NUMBER: [id number] (AGE): 1960 (Age: 63) SPECIMEN NUMBER: [id number] DATE OBTAINED: 09/08/2024 DIAGNOSIS BRONCHOALVEOLAR LAVAGE, RIGHT MIDDLE LOBE: PLEASE REFER TO THE CORRESPONDING SPECIMEN, [id number]. ??SEE COMMENT. georgie/09/11/2024 Electronically Signed Out ? ONOFRE LARSEN MD, PhD COMMENT Test not performed; charge credited. IA Clinical Information and History: Sepsis; respiratory failure; ARDS secondary to diffuse alveolar hemorrhage. ?? Tissue(s) Submitted: A: BAL RML Gross Description: Received is a BAL (RML) specimen (approximately 10 mL) for flow cytometry. Grossly, the specimen appears cloudy and pink, with macroscopic particles. ?? HOSPITAL LAB 09/08/2024 09/09/2024 12: 31 PM EDT Comment:BAL RML us Generic Provider PATHOLOGY/CYTOLOGY ORDERABLES F inal Result Performing Organization Address City/[facility]/ZIP Co de Phone Number HOSPITAL LAB See Below * (ABNORMAL) POCT Glucose, Fingerstick (09/07/2024 10:21 PM EDT) POC Glucose 149(H) 65 - 99 mg/dL 09/07/2024 10:22 PM EDT Blood specimen / Unknown 09/07/2024 10:21 PM EDT 09/07/2024 10:22 PM EDT us Danny Barr MD POINT OF CARE TEST ORDERABLES Fi nal Result Performing Organization Address [facility]/ZIP Co de Phone Number HOSPITAL LAB See Below * ECG 12 lead (09/07/2024 10:05 PM EDT) Systolic BP 177 mmHg EKG [facility] Diastolic BP 97 mmHg EKG [facility] Ventricular rate 145 BPM EKG [facility] Atrial rate 145 BPM EKG [facility] P-R interval 120 ms EKG [facility] QRS duration 126 ms EKG [facility] Q-T interval 332 ms EKG [facility] QTC calculation (Bazett) 515 ms EKG [facility] P axis 14 degrees EKG [facility] R axis 101 degrees EKG [facility] T axis 63 degrees EKG [facility] 09/07/2024 10:0 5 PM EDT Narrative EKG [facility] - 09/08/2024 3:24 PM EDT Sinus tachycardia Cannot exclude Atrial flutter Right bundle branch block Abnormal ECG When compared with ECG of 07-Sep-2024 20:33, Premature supraventricular complexes are now Present Confirmed by DO Holm Kyla ([id number]) on 09/08/2024 3:24:34 PM Procedure Note Alta Holm DO - 09/08/2024 Sinus tachycardia Cannot exclude Atrial flutter Right bundle branch block Abnormal ECG When compared with ECG of 07-Sep-2024 20:33, Premature supraventricular complexes are now Present Confirmed by DO Holm Kyla ([id number]) on 09/08/2024 3:24:34 PM us Danny Barr MD ECG ORDERABLES Final Result EKG [facility] * (ABNORMAL) Blood Gas with Cooximetry, Arterial (09/07/2024 9:51 PM EDT) Respiratory Info OTHER 09/08/19 9:52 PM EDT [facility] pH, Arterial 7.38 7.35 - 7.45 09/07/2024 11:17 PM EDT [facility] pCO2, Arterial 35 32 - 45 mmHG 09/07/2024 11:17 PM EDT [facility] pO2, Arterial 46(L) 75 - 95 mmHG 09/07/2024 11:17 PM EDT [facility] CO2, Total 22 22 - 28 mmol/L 09/07/2024 11:17 PM EDT [facility] Base Deficiency 3.6 mmol/L 11:17 PM EDT [facility] Comment:Reference Range: Neg ative 2 to Positive 3 Hemogloblin, Total 11.0(L) 13.0 - 17.7 g/dL 09/07/2024 11:17 PM EDT [facility] O2 Saturation, Arterial 80.9(L) 94 - 97 % 09/07/2024 11:17 PM EDT [facility] Carboxyhemoglobin 1.6 0.0 - 2.0 % 09/07/2024 11:17 PM EDT [facility] Methemoglobin 0.9 0.4 - 1.5 % 09/07/2024 11:17 PM EDT [facility] O2 Content, Arterial 12.2(L) 17.6 - 24.3 mL/dL 09/07/2024 11:17 PM EDT [facility] Blood Blood specimen / Unknown 09/07/2024 9:51 PM EDT 09/07/2024 11:12 PM EDT us Torri VELASCO LAB BLOOD ORDERABLES Naina l Result [address] [address], [address] [address] * ECG 12 lead (09/07/2024 8:33 PM EDT) Systolic BP 164 mmHg EKG [facility] Diastolic BP 74 mmHg EKG [facility] Ventricular rate 115 BPM EKG [facility] Atrial rate 115 BPM EKG [facility] P-R interval 116 ms EKG [facility] QRS duration 136 ms EKG [facility] Q-T interval 402 ms EKG [facility] QTC calculation (Bazett) 556 ms EKG [facility] P axis 50 degrees EKG [facility] R axis 101 degrees EKG [facility] T axis 59 degrees EKG [facility] 09/07/2024 8:33 PM EDT Narrative EKG [facility] - 09/07/2024 9:15 PM EDT Sinus tachycardia Right bundle branch block Left posterior fascicular block Abnormal ECG No previous ECGs available Confirmed by MD Abbott Kevin ([id number]) on 09/07/2024 9:15:34 PM Procedure Note Sreedhar Abbott MD - 09/07/2024 Sinus tachycardia Right bundle branch block Left posterior fascicular block Abnormal ECG No previous ECGs available Confirmed by MD Abbott Kevin ([id number]) on 09/07/2024 9:15:34 PM us Danny Barr MD ECG ORDERABLES Final Result EKG [facility] * (ABNORMAL) POCT Glucose, Fingerstick (09/07/2024 7:51 PM EDT) POC Glucose 107(H) 65 - 99 mg/dL 09/07/2024 8:01 PM EDT Blood specimen / Unknown 09/07/2024 7:51 PM EDT 09/07/2024 8:01 PM EDT Danny Barr MD POINT OF CARE TEST ORDERABLES Fi nal Result HOSPITAL LAB See Below * (ABNORMAL) Ear Culture (09/07/2024 7:47 PM EDT) Gram stain suggestive of No neutrophils No squamous cells Red blood cells Gram positive rods 09/07/2024 9:33 PM EDT [facility] Culture Rubi parapsilosis Identification and/or susceptibilities completed per physician request. Rubi MOODY's performed by gradient MOODY strip. This test was developed and its performance characteristics determined by [facility]. It has not been cleared or approved by the Food and Drug Administration. (A) 09/14/2024 1:02 PM EDT [facility] Culture Bordetella species(A) 09/14/2024 1:02 PM EDT [facility] Culture Mixed normal karin 2024 1:02 PM EDT [facility] Swab, Abscess (Ear, External right) 09/07/2024 7:47 PM EDT 09/07/2024 9:00 PM EDT Comment:Swab, Abscess Narrative Organism Antibiotic Method Susceptibility Rubi parapsilosis Fluconazole (REPORT) FU NGAL INTERPRETATION (MCG/ML) Susceptible Rubi parapsilosis Voriconazole (REPORT) FU NGAL INTERPRETATION (MCG/ML) Susceptible Rubi parapsilosis Micafungin (REPORT) FU NGAL INTERPRETATION (MCG/ML) Intermediate Rubi parapsilosis Fluconazole (REPORT) FUNGAL MOODY (MCG/ML) 1 Rubi parapsilosis Voriconazole (REPORT) FUNGAL MOODY (MCG/ML) 0.023 Rubi parapsilosis Micafungin (REPORT) FUNGAL MOODY (MCG/ML) 3 Jose Pond MD MICROBIOLOGY - GENERAL ORDERAB LES Final Result [facility] [address] [place] [address], [facility] [address] [place] [address] * GUILLE Archive for reference only CT (09/07/2024 7:20 PM EDT) Narrative SYSTEMGENERATED, DOCUMENTATION - 09/07/2024 7:00 PM EDT This order has been auto-finalized and does not contain a result. Britton Sinclairx PA-C IMG DIGITIZE FILMS F inal Result * GUILLE Archive for reference only CT (09/07/2024 7:15 PM EDT) Narrative SYSTEMGENERATED, DOCUMENTATION - 09/07/2024 7:00 PM EDT This order has been auto-finalized and does not contain a result. Britton Willdox PA-C IMG DIGITIZE FILMS F inal Result * GUILLE Archive for reference only CT (09/07/2024 7:10 PM EDT) Narrative SYSTEMGENERATED, DOCUMENTATION - 09/07/2024 7:00 PM EDT This order has been auto-finalized and does not contain a result. Britton Willdox PA-C IMG DIGITIZE FILMS F inal Result * GUILLE Archive for reference only CR (09/07/2024 7:10 PM EDT) Narrative SYSTEMGENERATED, DOCUMENTATION - 09/07/2024 7:00 PM EDT This order has been auto-finalized and does not contain a result. Britton Willdox PA-C IMG DIGITIZE FILMS F inal Result * GUILLE Archive for reference only MR (09/07/2024 7:10 PM EDT) Narrative SYSTEMGENERATED, DOCUMENTATION - 09/07/2024 7:00 PM EDT This order has been auto-finalized and does not contain a result. us Britton Sinclairx PA-C IMG DIGITIZE FILMS F inal Result * GUILLE Archive for reference only CT (09/07/2024 7:05 PM EDT) Narrative SYSTEMGENERATED, DOCUMENTATION - 09/07/2024 7:00 PM EDT This order has been auto-finalized and does not contain a result. us Britton Sinclairx PA-C IMG DIGITIZE FILMS F inal Result * GUILLE Archive for reference only CR (09/07/2024 7:05 PM EDT) Narrative SYSTEMGENERATED, DOCUMENTATION - 09/07/2024 7:00 PM EDT This order has been auto-finalized and does not contain a result. us Britton Sinclairx PA-C IMG DIGITIZE FILMS F inal Result * GUILLE Archive for reference only MR (09/07/2024 7:05 PM EDT) Narrative SYSTEMGENERATED, DOCUMENTATION - 09/07/2024 7:00 PM EDT This order has been auto-finalized and does not contain a result. us Britton Sinclairx PA-C IMG DIGITIZE FILMS F inal Result * Type and Screen (09/07/2024 6:55 PM EDT) ABO/Rh A NEGATIVE 09/07/2024 10:07 PM EDT [facility] Antibody Screen NEGATIVE 09/07/2024 10:07 PM EDT [facility] Specimen Expiration 09/10/2024 09/07/2024 10:07 PM EDT [facility] Blood Bank Comment Second Sample needed for Blood Transfusion 09/07/2024 10:07 PM EDT [facility] Blood Blood specimen / Unknown 09/07/2024 6:55 PM EDT 09/07/2024 8:54 PM EDT us Aimee VELASCO BLOOD BANK TEST ORDERABLE S Final Result Performing Organization Address [facility] Co de Phone Number [address] [address], [address] [address] * Lactic Acid, Plasma (Routine) (09/07/2024 6:24 PM EDT) Lactic Acid 1.9 0.5 - 1.9 mmol/L 09/07/2024 7:08 PM EDT [facility] Blood Blood specimen / Unknown 09/07/2024 6:24 PM EDT 09/07/2024 6:39 PM EDT us Aimee VELASCO LAB BLOOD ORDERABLES Naina l Result Performing Organization Address [facility] Co de Phone Number [address] [address], [address] [address] * XR Chest 1 view-Portable (09/07/2024 5:11 PM EDT) Anatomical Region Laterality Modality Chest Computed Radiogr aphy 09/07/2024 4:56 PM EDT Impressions 09/08/2024 11:49 AM EDT 1. ??Markedly worsened diffuse bilateral interstitial and airspace opacification involving the entire lungs bilaterally. 2. ??Heart and mediastinum are widened, this is exaggerated by AP technique and unchanged. Narrative 09/08/2024 11:49 AM EDT EXAMINATION: XR CHEST 1 VIEW PORTABLE CLINICAL INFORMATION: hypoxia COMPARISON: Prior chest x-ray September 07, 2024 ?? TECHNIQUE: Single portable frontal view. Tubes and lines: None Lungs and pleura: Diffuse bilateral interstitial and airspace opacification has worsened. Almost involving the entire lungs bilaterally. Heart and mediastinum: Heart and mediastinum are widened, this is exaggerated by AP technique and unchanged.. Bones/soft tissue: Skeletal structures included are normal for patient's age. Procedure Note Jose Ramon Kirkpatrick MD - 09/08/2024 EXAMINATION: XR CHEST 1 VIEW PORTABLE CLINICAL INFORMATION: hypoxia COMPARISON: Prior chest x-ray September 07, 2024 TECHNIQUE: Single portable frontal view. Tubes and lines: None Lungs and pleura: Diffuse bilateral interstitial and airspace opacification has worsened. Almost involving the entire lungs bilaterally. Heart and mediastinum: Heart and mediastinum are widened, this is exaggerated by AP technique and unchanged.. Bones/soft tissue: Skeletal structures included are normal for patient's age. IMPRESSION: 1. Markedly worsened diffuse bilateral interstitial and airspace opacification involving the entire lungs bilaterally. 2. Heart and mediastinum are widened, this is exaggerated by AP technique and unchanged. Marie Chamberlain PA-C IMG DIAGNOSTIC IMAGING ORD ERABLES Final Result * (ABNORMAL) Fibrinogen Level (09/07/2024 5:03 PM EDT) Fibrinogen 550(H) 148 - 435 mg/dL 09/07/2024 5:43 PM EDT [facility] Blood Blood specimen / Unknown 09/07/2024 5:03 PM EDT 09/07/2024 5:17 PM EDT Marie Chamberlain PA-C LAB BLOOD ORDERABLES Final Result [address] [address], [address] [address] * Thrombin Time (09/07/2024 5:03 PM EDT) Anticoagulant NO ANTI COAGULANT MEDS 09/07/2024 4:53 PM EDT [facility] Thrombin Time 12.9 12.7 - 19.2 seconds 09/07/2024 5:43 PM EDT [facility] Blood Blood specimen / Unknown 09/07/2024 5:03 PM EDT 09/07/2024 5:17 PM EDT Marie Chamberlain PA-C LAB BLOOD ORDERABLES Final Result Performing Organization Address City/[facility]/ZIP Co de Phone Number [address] [address], [address] [address] * Partial Thromboplastin Time (PTT) (09/07/2024 5:03 PM EDT) Anticoagulant NO ANTI COAGULANT MEDS 09/07/2024 4:53 PM EDT [facility] Partial Thromboplastin Time (PTT) 30 25 - 36 seconds 09/07/2024 5:43 PM EDT [facility] Blood Blood specimen / Unknown 09/07/2024 5:03 PM EDT 09/07/2024 5:17 PM EDT Mariepawan Wilsonnannette PA-C LAB BLOOD ORDERABLES Final Result Performing Organization Address [facility] [place] [address], [address] [address] * (ABNORMAL) Protime-INR (09/07/2024 5:03 PM EDT) Anticoagulant NO ANTI COAGULANT MEDS 09/07/2024 4:53 PM EDT [facility] Prothrombin Time (PT) 14.0(H) 10.0 - 13.5 seconds 09/07/2024 5:43 PM EDT [facility] INR 1.3 09/07/2024 5:43 PM EDT [facility] Comment:INR Therapeutic Rang es: Standard dose anticoagulant 2.0 to 3.0, High dose anticoagulant 2.5-3.5. Blood Blood specimen / Unknown 09/07/2024 5:03 PM EDT 09/07/2024 5:17 PM EDT Marie Benítezpa PA-C LAB BLOOD ORDERABLES Final Result Performing Organization Address City/[facility]/[place] [address], [address] [address] * Blood Culture #1 (09/07/2024 5:02 PM EDT) Culture Sterile after 5 days 09/12/2024 8:01 AM EDT [facility] Blood Blood specimen / Unknown 09/07/2024 5:02 PM EDT 09/07/2024 5:32 PM EDT Comment:Blood Marie Benítezpa PA-C LAB BLOOD ORDERABLES Final Result [facility] [address] [place] [address], [place] * Blood Culture #2 (09/07/2024 4:53 PM EDT) Culture Sterile after 5 days 09/12/2024 8:01 AM EDT [facility] Blood Blood specimen / Unknown 09/07/2024 4:53 PM EDT 09/07/2024 5:33 PM EDT Comment:Blood Marie Benítezpa PA-C LAB BLOOD ORDERABLES Final Result [facility] [address] [place] [address], [place] * (ABNORMAL) proBNP, N-terminal (09/07/2024 4:36 PM EDT) proBNP, N-terminal 5,786(H) <125 pg/mL 09/07/2024 8:13 PM EDT [facility] 09/07/2024 4:36 PM EDT 09/07/2024 5:12 PM EDT MarieAXSUN Technologiespa PA-C LAB BLOOD ORDERABLES Final Result Performing Organization Address City/[facility]/ZIP Co de Phone Number [address] [address], [address] [address] * High Sensitivity Troponin T (09/07/2024 4:36 PM EDT) [facility] High Sensitivity Troponin T 22 <23 ng/L 09/07/2024 8:13 PM EDT [facility] Delta (Change) NO PREVIOUS RESULT <3 09/07/2024 8:13 PM EDT [facility] 09/07/2024 4:36 PM EDT 09/07/2024 5:12 PM EDT us Marie Chamberlain PA-C LAB BLOOD ORDERABLES Final Result Performing Organization Address [facility] [place] [address], [place] [address] * Nasal MRSA Screen, PCR (09/07/2024 4:36 PM EDT) [facility] MRSA Result Not Detected Not Detected 7:03 PM EDT [facility] Comment:Performed by the Xpe rt MRSA NxG Assay Swab, Anterior Nares Specimen from nose / Unknown 09/07/2024 4:36 PM EDT 09/07/2024 5:12 PM EDT us Marie Chamberlain PA-C MICROBIOLOGY - GENERAL ORD ERABLES Final Result Performing Organization Address [facility] [place] [address], [place] [address] * (ABNORMAL) Hepatic Function Panel (09/07/2024 4:36 PM EDT) [facility] Alkaline Phosphatase 97 45 - 128 U/L 09/07/2024 5:44 PM EDT [facility] Aspartate Aminotrans (AST) 43 10 - 55 U/L 09/07/2024 5:44 PM EDT [facility] Alanine Aminotrans (ALT) 18 10 - 55 U/L 09/07/2024 5:44 PM EDT [facility] Bilirubin, Total 2.6(H) 0.2 - 1.0 mg/dL 09/07/2024 5:44 PM EDT [facility] Protein, Total 5.2(L) 6.3 - 8.3 g/dL 09/07/2024 5:44 PM EDT [facility] Albumin 2.8(L) 3.4 - 4.8 g/dL 09/07/2024 5:44 PM EDT [facility] Bilirubin, Direct 1.9(H) 0 - 0.2 mg/dL 09/07/2024 5:44 PM EDT [facility] Globulin 2.4 1.5 - 3.9 g/dL 09/07/2024 5:44 PM EDT [facility] Albumin/Globulin Ratio 1.2 1.0 - 3.0 Ratio 09/07/2024 5:44 PM EDT [facility] Blood Blood specimen / Unknown 09/07/2024 4:36 PM EDT 09/07/2024 5:12 PM EDT Marie Chamberlain PA-C LAB BLOOD [place] [address], [place] [address] * TSH, Highly Sensitive (09/07/2024 4:36 PM EDT) TSH, Highly Sensitive 0.80 0.27 - 4.20 mIU/L 09/07/2024 5:44 PM EDT [facility] Blood Blood specimen / Unknown 09/07/2024 4:36 PM EDT 09/07/2024 5:12 PM EDT Marie Chamberlain PA-C LAB BLOOD [place] [address], [place] [address] * Phosphorus (09/07/2024 4:36 PM EDT) Phosphorus 3.3 2.7 - 4.5 mg/dL 09/07/2024 5:44 PM EDT [facility] Blood Blood specimen / Unknown 09/07/2024 4:36 PM EDT 09/07/2024 5:12 PM EDT Marie Wilsonnannette PA-C LAB BLOOD ORDERABLES Final Result Performing Organization Address City/[facility] Co de Phone Number [address] [address], [address] [address] * Magnesium (09/07/2024 4:36 PM EDT) Magnesium 2.3 1.6 - 2.7 mg/dL 09/07/2024 5:44 PM EDT [facility] Blood Blood specimen / Unknown 09/07/2024 4:36 PM EDT 09/07/2024 5:12 PM EDT Marie VELASCO-C LAB BLOOD ORDERABLES Final Result Performing Organization Address [facility] Co de Phone Number [address] [address], [address] [address] * (ABNORMAL) Basic Metabolic Panel (09/07/2024 4:36 PM EDT) Glucose 92 65 - 99 mg/dL 09/07/2024 5:44 PM EDT [facility] Comment:Fasting: <100 mg/dL, Non-Fasting: <200 mg/dL (ADA 2005) Blood Urea Nitrogen (BUN) 45(H) 8 - 21 mg/dL 09/07/2024 5:44 PM EDT [facility] Creatinine 1.0 0.5 - 1.3 mg/dL 09/07/2024 5:44 PM EDT [facility] eGFR 85 >59 09/07/2024 5:44 PM EDT [facility] Comment:CKD-EPI (2020) in mL /min/1.73 sq meters. Sodium 141 136 - 145 mmol/L 09/07/2024 5:44 PM EDT [facility] Potassium 3.6 3.4 - 5.3 mmol/L 09/07/2024 5:44 PM EDT [facility] Chloride 109(H) 98 - 107 mmol/L 09/07/2024 5:44 PM EDT [facility] CO2 21(L) 22 - 33 mmol/L 09/07[facility]2024 [facility] An[facility] Gap 11 7 - 17 09/07/2024 5:44 PM EDT [facility] Calcium 7.9(L) 8.7 - 10.5 mg/dL 09/07/2024 5:44 PM EDT [facility] BUN/Creatinine Ratio 45(H) 10.0 - 25.0 Ratio 09/07/2024 5:44 PM EDT [facility] Blood Blood specimen / Unknown 09/07/2024 4:36 PM EDT 09/07/2024 5:12 PM EDT Marie Chamberlain PA-C LAB BLOOD [place] [address], [address] [address] * (ABNORMAL) Complete Blood Count, with Differential (09/07/2024 4:36 PM EDT) White Blood Cell Count 16.5(H) 4.0 - 11.0 Thou/uL 09/07/2024 6:16 PM [facility] Platelet Count 10(LL) 150 - 450 Thou/uL 09/07/2024 6:16 PM [facility] Comment: Results verified by smear review. Test results repeated. Hemoglobin 11.6(L) 13.0 - 17.7 g/dL 09/07/2024 6:16 PM [facility] Hematocrit 33.7(L) 39.0 - 54.0 % 09/07/2024 6:16 PM [facility] Red Blood Cell Count 3.76(L) 4.50 - 6.20 Mil/uL 09/07/2024 6:16 PM [facility] MCV 90 80 - 100 fL 09/07/2024 6:16 PM [facility] MCH 30.9 27.0 - 31.0 pg 09/07/2024 6:16 PM EDT [facility] MCHC 34.4 30.0 - 36.0 g/dL 09/07/2024 6:16 PM EDT [facility] RDW 13.4 11.5 - 14.5 % 09/07/2024 6:16 PM EDT [facility] MPV 10.5 7.5 - 12.5 fL 09/07/2024 6:16 PM EDT [facility] Immature Platelet Fraction 27.9(H) 1.2 - 8.6 % 09/07/2024 6:16 PM EDT [facility] Neutrophils Man 98 % 6:35 PM EDT [facility] Comment:Dohle Bodies present Toxic granulation present. Monocytes Man 2 % 09/07/2024 6:35 PM EDT [facility] Abs Neutrophils Count (ANC) 16.2(H) 2.0 - 7.5 Thou/uL 09/07/2024 6:35 PM EDT [facility] Abs Monocytes Man 0.3 0.2 - 1.5 Thou/uL 09/07/2024 6:35 PM EDT [facility] Normochromic Present 09/07/2024 6:35 PM EDT [facility] Normocytic Present 09/07/2024 6:35 PM EDT [facility] Blood Blood specimen / Unknown 09/07/2024 4:36 PM EDT 09/07/2024 5:12 PM EDT Marie Chamberlain PA-C LAB BLOOD [place] [address], [place] [address] * (ABNORMAL) POCT Glucose, Fingerstick (09/07/2024 4:17 PM EDT) POC Glucose 103(H) 65 - 99 mg/dL 09/07/2024 7:28 PM EDT Blood specimen / Unknown 09/07/2024 4:17 PM EDT 09/07/2024 7:28 PM EDT us Danny Barr MD POINT OF CARE TEST ORDERABLES Fi nal Result [facility] See Below documented in this encounter Visit Diagnoses Diagnosis Acute cerebral venous sinus thrombosis- Primary Phlebitis and thrombophlebitis of intracranial venous sinuses Acute swimmer's ear of right side Acute cerebral venous sinus thrombosis Phlebitis and thrombophlebitis of intracranial venous sinuses documented in this encounter Admitting Diagnoses Diagnosis Acute cerebral venous sinus thrombosis Phlebitis and thrombophlebitis of intracranial venous sinuses documented in this encounter Administered Medications Active Administered Medications - up to 1 most recent administrations Medication Order MAR Action Action Date Dose Rate Site acetaminophen (TYLENOL) tablet 975 mg 975 mg, NG Tube, Every 6 hours PRN, mild pain 1-3, Starting on Wed09/20/24 at 203 bisacodyl (DULCOLAX) suppository 10 mg 10 mg, Rectal, Daily PRN, constipation, if no bowel movement by day 2, Starting on Heidy 09/07/24 at 1621 dextrose 50 % solution 12.5 g 12.5 g, Intravenous, Every 15 min PRN, low blood sugar, between 50 and 69 mg/dL, Starting on Wed09/19/24 at 1224, For patient with IV access who is NPO or unable to swallow. See Hypoglycemia Management guideline. dextrose 50 % solution 25 g 25 g, Intravenous, Every 15 min PRN, low blood sugar, less than 50 mg/dL, Starting on Wed09/19/24 at 1224, For patient with IV access who is NPO or unable to swallow. See Hypoglycemia Management guideline. FLUoxetine (PROzac) 20 MG/5ML solution 40 mg 40 mg, Oral, Daily, First dose (after last modification) on Wed09/22/24 at 0900 Given 09/22/2024 10:56 AM EDT 40 mg folic acid (FOLVITE) tablet 1 mg 1 mg, Oral, Daily, First dose (after last modification) on Wed09/22/24 at 0900 Given 09/22/2024 10:54 AM EDT 1 mg glucagon (GLUCAGEN) injection 1 mg 1 mg, Intramuscular, Daily PRN, low blood sugar, for Blood Glucose LESS than 70 mg/dL and NPO and no IV access, Starting on Wed09/19/24 at 1224, Glucagon may be repeated x 1 (for a total of 2 doses per hypoglycemic event) if patient remains hypoglycemic after first dose. Do not use with hepatic disease or alcohol intoxication. See Hypoglycemia Management guideline. Reconstitute vial with 1 mL sterile water for injection. glucose (GLUTOSE 15) 40 % oral gel 37.5 g 37.5 g (1 Tube), Oral, Every 15 min PRN, low blood sugar, between 50 and 69 mg/dL, Starting on Wed09/19/24 at 1224, Juice or soda is preferred for alert patients (4 oz juice or 6 oz soda). Use glucose gel for patients with fluid restriction. See Hypoglycemia Management guideline. Each 37.5 gram tube of glucose 40 % = 15 grams of glucose. glucose (GLUTOSE 15) 40 % oral gel 75 g 75 g (2 Tube), Oral, Every 15 min PRN, low blood sugar, less than 50 mg/dL, Starting on Wed09/19/24 at 1224, Juice or soda is preferred for alert patients (8 oz juice or 12 oz soda). Use glucose gel for patients with fluid restriction. See Hypoglycemia Management guideline. Each 37.5 gram tube of glucose 40 % = 15 grams of glucose. heparin (porcine) 1000 unit/mL injection 2,800 Units 2,800 Units (rounded from 2,787 Units = 30 Units/kg ? 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 heparin (porcine) IV infusion 25,000 units in 500 mL 0.45% NaCl (premix) 20.066 mL/hr (rounded from 20.0664 mL/hr = 10.8 Units/kg/hr ? 92.9 kg), Intravenous, Continuous, Starting on 09/16/24 at 1700, HEPARIN CARDIAC/LOW DOSE PROTOCOL: Initial Infusion Dose: See dose above, MAX initial dose 1,000 units/hr (83 kg and above) Dose adjustment instructions: - Obtain a Heparin Anti-factor Xa (Anti-Xa) level 6 hours after start of infusion and 6 hours after every dose change. - Once patient is within therapeutic range for two consecutive Anti-Xa measurements, then obtain Anti-Xa daily with AM labs until infusion is discontinued. When heparin infusion is interrupted: - For less than or equal to 90 minutes: ?~ Restart heparin infusion at the most recent dose and draw Anti-Xa level in 6 hours from restart. ?~ No bolus required. Adjust per protocol. - For greater than 90 minutes or if heparin interruption for unknown time period: ?~ Draw stat Anti-Xa level (Do not adjust infusion dose based on this Anti-Xa result). ~ Restart heparin infusion at most recent dose (most recent dose may be anytime during the patient's current admission). ~ Notify licensed practioner regarding interruption and discuss if IV bolus is necessary; licensed practioner to consider ordering IV bolus if greater than 6 hours heparin interruption. ?? ~ Draw Anti-Xa in 6 hours and proceed per protocol. - Document all pertinent communications with providers in the patient's record. - Adjust infusion based on Anti-Xa result per Cardiac/Low Dose protocol table: Concentration = 50 units/mL, Indication for Anticoagulation: Other, Specify: nonocclusive venous thrombus of bilateral IJV and L transverse sinus in the setting of meningitis New Bag 09/21/2024 6:19 PM EDT 13.8 Units/kg/hr 25.64 mL/hr insulin lispro (HumaLOG/ADMELOG) 100 units/mL injection 1-6 Units 1-6 Units, Subcutaneous, 4 times daily before meals and nightly, First dose (after last modification) on [facility] 09/21/24 at 1630, DO NOT HOLD IF NPO Notify provider if Blood Glucose LESS than 70 For BG 141-180 administer 1 unit For BG 181-220 administer 2 units For BG 221-260 administer 3 units For BG 261-300 administer 4 units For BG 301-340 administer 5 units For BG MORE than 340, administer 6 units AND notify provider lactulose (ENULOSE) 10 gm/15 mL solution 20 g 20 g, Oral, Daily PRN, constipation, Starting on [facility] 09/21/24 at 1436, Administer until bowel movement metoPROLOL TARTRATE (LOPRESSOR) tablet 50 mg 50 mg, Oral, Every 12 hours scheduled, First dose (after last modification) on [facility] 09/21/24 at 2100, Hold for HR less than 45 bpm and/or SBP less than 90 mmHg. Notify provider if a dose is held. Given 09/22/2024 10:54 AM EDT 50 mg multivitamin with minerals (CEROVITE) liquid 15 mL 15 mL, Oral, Daily, First dose (after last modification) on Wed09/22/24 at 0900 Given 09/22/2024 10:55 AM EDT 15 mL naloxone (NARCAN) 0.4 mg/mL injection 0.4 mg 0.4 mg, Intravenous, Every 5 min PRN, opioid reversal, respiratory depression, Starting on Heidy 09/07/24 at 1621, Notify provider if administered nicotine (NICODERM CQ) 21 MG/24HR patch 1 patch 1 patch, Transdermal, Daily, First dose on Wed09/08/24 at 0900, Apply new patch to nonhairy, clean, dry skin on the upper body or upper outer arm. Rotate sites. Do not use patch if damaged or cut., Remove Patch at Bedtime? No Patch Applied 09/21/2024 10:59 AM EDT 1 patch Right Arm polyethylene glycol (miraLAx) packet 17 g 17 g, Oral, Daily PRN, constipation, Starting on Wed09/22/24 at 1200, Stir and dissolve in 4-8 oz of fluids. senna-docusate (SENNA-S) 8.6-50 MG tablet 2 tablet 2 tablet, Oral, Nightly PRN, constipation, Starting on Wed09/22/24 at 1200, Hold for diarrhea thiamine mononitrate (VITAMIN B-1) tablet 100 mg 100 mg, Oral, Daily, First dose (after last modification) on Wed09/22/24 at 0900 Given 09/22/2024 10:54 AM EDT 100 mg Inactive Administered Medications - up to 1 most recent administrations Medication Order MAR Action Action Date Dose Rate Site dextrose 5 % (D5W) infusion 50 mL/hr, Intravenous, Continuous, Starting on 09/09/24 at 0300 Rate/Dose Verify 09/09/2024 11:00 AM EDT 50 mL/hr 50 mL/hr dextrose 5 % (D5W) infusion 50 mL/hr, Intravenous, Continuous, Starting on 09/11/24 at 1600 Rate/Dose Verify 09/13/2024 8:00 AM EDT 50 mL/hr 50 mL/hr dextrose 5 % (D5W) infusion 75 mL/hr, Intravenous, Continuous, Starting on Wed09/19/24 at 1500 Rate/Dose Change 09/21/2024 2:43 AM EDT 75 mL/hr 75 mL/hr acetaminophen (OFIRMEV) injection 1,000 mg 1,000 mg, Intravenous, at 400 mL/hr, Once, On Heidy 09/07/24 at 2230, For 1 dose New Bag 09/07/2024 10:34 PM EDT 1,000 mg 400 mL/hr acetaminophen (TYLENOL) 160 mg/5 mL solution 650 mg 650 mg, Oral, Once, On Wed09/10/24 at 2000, For 1 dose Given 09/10/2024 8:08 PM EDT 650 mg acetaminophen (TYLENOL) 160 mg/5 mL solution 650 mg 650 mg, Oral, Once, On Wed09/11/24 at 0630, For 1 dose Given 09/11/2024 6:21 AM EDT 650 mg acetaminophen (TYLENOL) 160 mg/5 mL solution 650 mg 650 mg, Oral, Every 6 hours PRN, fever greater than 100.4 degrees F, Starting on Wed09/11/24 at 0747 Given 09/12/2024 8:54 AM EDT 650 mg acetaminophen (TYLENOL) 160 mg/5 mL solution 650 mg 650 mg, Feeding Tube, Every 6 hours PRN, fever greater than 100.4 degrees F, Starting on Wed09/12/24 at 1019 Given 09/16/2024 2:11 PM EDT 650 mg acetaminophen (TYLENOL) tablet 650 mg 650 mg, Oral, Once, On Wed09/08/24 at 2030, For 1 dose, Administer 30 minutes prior to patient's first IVIG. Order may be switched to Every 24 Hours if Pre-Medication is required for every dose of IVIG. Given 09/08/2024 9:00 PM EDT 650 mg acetaminophen (TYLENOL) tablet 975 mg 975 mg, Oral, Every 6 hours PRN, mild pain 1-3, Starting on 09/16/24 at 1442, On hold since Wed09/18/2024 at 1916 until manually unheld Given 09/18/2024 10:30 AM EDT 975 mg barium sulfate (VARIBAR HONEY,VARIBAR NECTAR,TAGITOL V) 40 % 20 mL 20 mL, Oral, Once in imaging, contrast, Starting on Heidy 09/21/24 at 1030, For 1 dose, Radiology Appointment Given 09/21/2024 10:32 AM EDT 20 mL barium sulfate (VARIBAR HONEY,VARIBAR NECTAR,TAGITOL V) 40 % 5 mL 5 mL, Oral, Once in imaging, contrast, Starting on Heidy 09/21/24 at 1030, For 1 dose, Radiology Appointment Given 09/21/2024 10:31 AM EDT 5 mL barium sulfate (VARIBAR PUDDING) 40 % 10 mL 10 mL, Oral, Once in imaging, contrast, Starting on Heidy 09/21/24 at 1030, For 1 dose, Radiology Appointment Given 09/21/2024 10:31 AM EDT 10 mL barium sulfate (VARIBAR THIN) 40 % 12 g 12 g (30 mL), Oral, Once in imaging, contrast, Starting on Heidy 09/21/24 at 1030, For 1 dose, Radiology Appointment Given 09/21/2024 10:31 AM EDT 12 g calcium carbonate (TUMS) chewable tablet 1,000 mg 1,000 mg, Oral, Once, On Heidy 09/21/24 at 0230, For 1 dose Given 09/21/2024 2:47 AM EDT 1,000 mg cefepime (MAXIPIME) 2 g in sodium chloride-MBP (NS) 100 mL IVPB-MBP 2 g, Intravenous, Administer over 3 Hours, Every 8 hours, First dose on Heidy 09/07/24 at 1730, All antimicrobials used at [facility] require an indication. Please complete the following documentation. Bacterial Infection Suspected, Type of Therapy: New Therapy, Indication: HEENT coverage New Bag 09/08/2024 10:10 AM EDT 2 g 33.3 mL/hr chlorhexidine (PERIDEX) 0.12 % oral solution 15 mL 15 mL, Mouth/Throat, 2 times daily, First dose on Wed09/08/24 at 1000, Swab lips and mouth Given 09/22/2024 10:53 AM EDT 15 mL chlorhexidine gluconate 2 % wipes - urethral catheter CHG application Topical, Daily, First dose on Wed09/08/24 at 0900, Each pack = 6 wipes. Dose = 1 each. Given 09/13/2024 8:21 AM EDT 1 each chlorhexidine gluconate 2 % wipes - urethral catheter CHG application Topical, Daily, First dose on Wed09/14/24 at 0900, Each pack = 6 wipes. Dose = 1 each. Given 09/20/2024 9:29 AM EDT 1 each ciprofloxacin-dexAMETHa sone (CIPRODEX) 0.3-0.1 % otic suspension 4 drop 4 drop, Right Ear, 2 times daily, First dose on Wed09/07/24 at 2100, For 10 days, Prior to instillation, bottle should be warmed in hands for 1-2 minutes; dizziness can occur if a cold suspension is instilled. Shake suspension well immediately before using. Patient should lie with affected ear upward and remain in this position for 60 seconds following applicationIndications: Acute swimmer's ear of right side Given 09/10/2024 8:07 AM EDT 4 drops clonazePAM (KlonoPIN) disintegrating tablet 0.25 mg 0.25 mg, Feeding Tube, Every 8 hours scheduled, First dose (after last modification) on Wed09/12/24 at 1400, Hazardous Level Medium B See Hazardous Medication Policy & Procedures for more information. Open pouch and peel back foil; do not push tablet through foil. Use dry hands to remove tablet and place in mouth. May be swallowed with or without water. Use tab immediately after opening. Given 09/13/2024 5:09 AM EDT 0.25 mg dexmedeTOMIDine (PRECEDEX) IV infusion 400 mcg in 100 mL NS (premix) 0.2-1.5 mcg/kg/hr ? 95.9 kg (4.795-35.9625 mL/hr, rounded to 4.8-36 mL/hr), Intravenous, Titrated, Starting on Wed09/07/24 at 2130, Starting Dose: RASS = +1 or +2: 0.2 mcg/kg/hr; RASS = +3: 0.4 mcg/kg/hr; RASS = +4: 0.6 mcg/kg/hr or as specified in dose field. Titrate UP by: 0.1 mcg/kg/hr every 30 minutes. Titrate DOWN by: 0.1 mcg/kg/hr every 10 minutes. Titration Goal: RASS between -2 and 0 for intubated patients. Titration Goal: RASS between -1 and +1 for non-intubated patients. Maximum Dose: 1.5 mcg/kg/hr or as specified in dose field. Patients must be ICU level of care. Rate/Dose Verify 09/08/2024 9:00 AM EDT 1.5 mcg/kg/hr 36 mL/hr dexmedeTOMIDine (PRECEDEX) IV infusion 400 mcg in 100 mL NS (premix) 0.2-1.5 mcg/kg/hr ? 97.3 kg (4.865-36.4875 mL/hr, rounded to 4.9-36.5 mL/hr), Intravenous, Titrated, Starting on Wed09/10/24 at 1430, Starting Dose: RASS = +1 or +2: 0.2 mcg/kg/hr; RASS = +3: 0.4 mcg/kg/hr; RASS = +4: 0.6 mcg/kg/hr or as specified in dose field. Titrate UP by: 0.1 mcg/kg/hr every 30 minutes. Titrate DOWN by: 0.1 mcg/kg/hr every 10 minutes. Titration Goal: RASS between -2 and 0 for intubated patients. Titration Goal: RASS between -1 and +1 for non-intubated patients. Maximum Dose: 1.5 mcg/kg/hr or as specified in dose field. Patients must be ICU level of care. Rate/Dose Change 09/10/2024 11:11 PM EDT 0.2 mcg/kg/hr 4.9 mL/hr diphenhydrAMINE (BENADRYL) capsule 25 mg 25 mg, Oral, Once, On Wed09/08/24 at 2030, For 1 dose, Administer 30 minutes prior to patient's first IVIG. Order may be switched to Every 24 Hours if Pre-Medication is required for every dose of IVIG. Given 09/08/2024 9:00 PM EDT 25 mg fentaNYL (SUBLIMAZE) 100 mcg/2 mL injection - ADS Override Pull Starting on Wed09/08/24 at 1314, For 1 dose, Farhat Ortiz: wil[place]et override fentaNYL (SUBLIMAZE) 100 mcg/2 mL injection 50 mcg 50 mcg, Intravenous, Once, On Wed09/08/24 at 1330, For 1 dose, If administered IV Push, dilute with 10 mL of NS and administer over 3 minutes. Given 09/08/2024 1:19 PM EDT 50 mcg FLUoxetine (PROzac) 20 MG/5ML solution 40 mg 40 mg, NG Tube, Daily, First dose on Wed09/21/24 at 0900 Given 09/21/2024 1:46 PM EDT 40 mg FLUoxetine (PROzac) capsule 40 mg 40 mg, Oral, Daily, First dose on Wed09/18/24 at 1100 Given 09/18/2024 10:34 AM EDT 40 mg folic acid (FOLVITE) tablet 1 mg 1 mg, Feeding Tube, Daily, First dose on Wed09/15/24 at 1130 Given 09/21/2024 10:58 AM EDT 1 mg folic acid injection 1 mg/0.2 mL syringe (premix) 1 mg, Intravenous, Administer over 0.5 Minutes, Daily, First dose on Wed09/18/24 at 1930 Given 09/20/2024 11:08 AM EDT 1 mg furosemide (LASIX) injection 20 mg 20 mg, Intravenous, Once, On Wed09/07/24 at 2200, For 1 dose, Hold for SBP less than 100 mmHg. Notify provider if a dose is held. If ordered IV Push: administer undiluted over 2 minutes. Given 09/07/2024 10:07 PM EDT 20 mg furosemide (LASIX) injection 40 mg 40 mg, Intravenous, Once, On Wed09/08/24 at 0930, For 1 dose, Hold for SBP less than 100 mmHg. Notify provider if a dose is held. If ordered IV Push: administer undiluted over 2 minutes. Given 09/08/2024 10:10 AM EDT 40 mg furosemide (LASIX) injection 40 mg 40 mg, Intravenous, Once, On Wed09/11/24 at 1000, For 1 dose, Hold for SBP less than 100 mmHg. Notify provider if a dose is held. If ordered IV Push: administer undiluted over 2 minutes. Given 09/11/2024 11:03 AM EDT 40 mg furosemide (LASIX) injection 40 mg 40 mg, Intravenous, Once, On Wed09/13/24 at 1000, For 1 dose, Hold for SBP less than 100 mmHg. Notify provider if a dose is held. If ordered IV Push: administer undiluted over 2 minutes. Given 09/13/2024 10:32 AM EDT 40 mg furosemide (LASIX) injection 40 mg 40 mg, Intravenous, Once, On Heidy 09/14/24 at 1230, For 1 dose, Hold for SBP less than 100 mmHg. Notify provider if a dose is held. If ordered IV Push: administer undiluted over 2 minutes. Given 09/14/2024 12:47 PM EDT 40 mg furosemide (LASIX) injection 40 mg 40 mg, Intravenous, Once, On Heidy 09/14/24 at 1730, For 1 dose, Hold for SBP less than 100 mmHg. Notify provider if a dose is held. If ordered IV Push: administer undiluted over 2 minutes. Given 09/14/2024 6:03 PM EDT 40 mg furosemide (LASIX) injection 40 mg 40 mg, Intravenous, Once, On 09/17/24 at 1000, For 1 dose, Hold for SBP less than 100 mmHg. Notify provider if a dose is held. If ordered IV Push: administer undiluted over 2 minutes. Given 09/17/2024 10:49 AM EDT 40 mg gadobutrol (GADAVIST) injection 10 mL 10 mL, Intravenous, Once in imaging, contrast, Starting on Wed09/13/24 at 0004, For 1 dose, Radiology Appointment Given 09/13/2024 12:04 AM EDT 10 mL gadobutrol (GADAVIST) injection 10 mL 10 mL, Intravenous, Once in imaging, contrast, Starting on 09/16/24 at 1250, For 1 dose, Radiology Appointment Given 09/16/2024 12:50 PM EDT 10 mL gadobutrol (GADAVIST) injection 9 mL 9 mL, Intravenous, Once in imaging, contrast, Starting on Wed09/20/24 at 0215, For 1 dose, Radiology Appointment Given 09/20/2024 2:16 AM EDT 9 mL haloperidol lactate (HALDOL) 5 mg/mL injection 5 mg 5 mg, Intravenous, Every 2 hours PRN, agitation, Starting on Tu09/12/24 at 1009, If ordered IV Push: administer undiluted at a maximum rate of 5 mg/minute. Given 09/12/2024 10:57 PM EDT 5 mg heparin (porcine) 5000 unit/mL injection 5,000 Units 5,000 Units, Subcutaneous, Every 8 hours scheduled, First dose on Wed09/12/24 at 1400, For subcutaneous use the injection sites should be rotated (usually left and right portions of the abdomen, above iliac crest). Given 09/16/2024 2:04 PM EDT 5,000 Units Abdominal Tissue hydrocortisone-acetic acid (VOSOL-HC) 1-2 % otic solution 4 drop 4 drop, Right Ear, 2 times daily, First dose on Wed09/10/24 at 0900, For 7 dosesIndications:Acute swimmer's ear of right side Given 09/13/2024 8:20 AM EDT 4 drops HYDROmorphone (DILAUDID) 2 mg/mL injection 2 mg 2 mg, Intravenous, Every 3 hours PRN, CPOT > 2, Starting on Wed09/10/24 at 1959, For 5 days Given 09/11/2024 2:13 AM EDT 2 mg HYDROmorphone (DILAUDID) 2 mg/mL injection 2 mg 2 mg, Intravenous, Every 2 hours PRN, CPOT > 2, Starting on Wed09/11/24 at 0406, For 3 days 8 hours Given 09/13/2024 2:28 PM EDT 2 mg HYDROmorphone (DILAUDID) injection 0.5 mg 0.5 mg, Intravenous, Every 2 hours PRN, CPOT > 2, Starting on Wed09/15/24 at 1535, For 136 hours Given 09/18/2024 4:01 AM EDT 0.5 mg HYDROmorphone (DILAUDID) injection 1 mg 1 mg, Intravenous, Every 3 hours PRN, CPOT > 2, Starting on Wed09/08/24 at 1444, For 7 days Given 09/10/2024 6:55 PM EDT 1 mg HYDROmorphone (DILAUDID) IV infusion 50 mg in 50 mL NS (1 mg/mL) (premix) 0.2 mg/hr (0.2 mL/hr), Intravenous, Continuous, Starting on Wed09/08/24 at 1600, For 9 days 16 hours, Starting dose: 0.2 mg/hr or as specified in dose field. If pain is still present (CPOT > 2) despite 2 or more bolus doses in 8 hours, contact provider to adjust basal rate. Rate/Dose Verify 09/18/2024 7:00 AM EDT 0.2 mg/hr 0.2 mL/hr ibuprofen (CALDOLOR) 400 mg in sodium chloride (NS) 0.9 % 250 mL IVPB 400 mg, Intravenous, at 508 mL/hr, Once, On 09/16/24 at 1800, For 1 dose New Bag 09/16/2024 8:54 PM EDT 400 mg 508 mL/hr immune globulin (human) 10% in Solution (PRIVIGEN) IV Premix 10 g 10 g, Intravenous, Every 24 hours, First dose on 09/09/24 at 1800, For 2 doses, Intravenous Immune Globulin per [facility] Pharmacy Protocol: Total Dose Per Day: 0.4 g/kg, 35 grams, for 2 days/doses. Dose will be broken in individual vials of 1 x 20 grams, 1 x 10 grams, and 1 x 5 grams. Filtration not required. Refer to IVIG infusion table for administration rate., IVIG Reason for use: Idiopathic or Immune Thrombocytopenia Purpura ? ITP New 09/10/2024 10:19 PM EDT 10 g immune globulin (human) 10% in Solution (PRIVIGEN) IV Premix 10 g 10 g, Intravenous, Every 24 hours, First dose on Wed09/11/24 at 2000, For 2 doses, Intravenous Immune Globulin per [facility] Pharmacy Protocol: Total Dose Per Day: 0.4 mg/kg, 35 grams, for 2 days/doses. Dose will be broken in individual vials of 1 x 20 grams, 1 x 10 grams, 1 x 5 grams. Filtration not required. Refer to IVIG infusion table for administration rate., IVIG Reason for use: Idiopathic or Immune Thrombocytopenia Purpura ? ITP New 09/12/2024 8:50 PM EDT 10 g immune globulin (human) 10% in Solution (PRIVIGEN) IV Premix 20 g 20 g, Intravenous, Every 24 hours, First dose on Wed09/08/24 at 2030, For 3 doses, Intravenous Immune Globulin per [facility] Pharmacy Protocol: Total Dose Per Day: 1 mg/kg, 85 grams, for 3 days/doses. Dose will be broken in individual vials of 4 x 20 grams, 1 x 5 grams Filtration not required. Refer to IVIG infusion table for administration rate., IVIG Reason for use: Idiopathic or Immune Thrombocytopenia Purpura ? ITP New 09/09/2024 1:16 AM EDT 20 g immune globulin (human) 10% in Solution (PRIVIGEN) IV Premix 20 g 20 g, Intravenous, Every 24 hours, First dose on Wed09/08/24 at 2030, For 3 doses, Intravenous Immune Globulin per [facility] Pharmacy Protocol: Total Dose Per Day: 1 mg/kg, 85 grams, for 3 days/doses. Dose will be broken in individual vials of 4 x 20 grams, 1 x 5 grams Filtration not required. Refer to IVIG infusion table for administration rate., IVIG Reason for use: Idiopathic or Immune Thrombocytopenia Purpura ? ITP New 09/09/2024 12:45 AM EDT 20 g immune globulin (human) 10% in Solution (PRIVIGEN) IV Premix 20 g 20 g, Intravenous, Every 24 hours, First dose on Wed09/08/24 at 2030, For 3 doses, Intravenous Immune Globulin per [facility] Pharmacy Protocol: Total Dose Per Day: 1 mg/kg, 85 grams, for 3 days/doses. Dose will be broken in individual vials of 4 x 20 grams, 1 x 5 grams Filtration not required. Refer to IVIG infusion table for administration rate., IVIG Reason for use: Idiopathic or Immune Thrombocytopenia Purpura ? ITP New 09/08/2024 11:39 PM EDT 20 g immune globulin (human) 10% in Solution (PRIVIGEN) IV Premix 20 g 20 g, Intravenous, Every 24 hours, First dose on Wed09/08/24 at 2030, For 3 doses, Intravenous Immune Globulin per [facility] Pharmacy Protocol: Total Dose Per Day: 1 mg/kg, 85 grams, for 3 days/doses. Dose will be broken in individual vials of 4 x 20 grams, 1 x 5 grams. Filtration not required. Refer to IVIG infusion table for administration rate., IVIG Reason for use: Idiopathic or Immune Thrombocytopenia Purpura ? ITP New Bag 09/08/2024 9:30 PM EDT 20 g immune globulin (human) 10% in Solution (PRIVIGEN) IV Premix 20 g 20 g, Intravenous, Every 24 hours, First dose on Wed09/09/24 at 1800, For 2 doses, Intravenous Immune Globulin per [facility] Pharmacy Protocol: Total Dose Per Day: 0.4 g/kg, 35 grams, for 2 days/doses. Dose will be broken in individual vials of 1 x 20 grams, 1 x 10 grams, and 1 x 5 grams. Filtration not required. Refer to IVIG infusion table for administration rate., IVIG Reason for use: Idiopathic or Immune Thrombocytopenia Purpura ? ITP Rate/Dose Change 09/10/2024 9:45 PM EDT immune globulin (human) 10% in Solution (PRIVIGEN) IV Premix 20 g 20 g, Intravenous, Every 24 hours, First dose on Wed09/11/24 at 2000, For 2 doses, Intravenous Immune Globulin per [facility] Pharmacy Protocol: Total Dose Per Day: 0.4 mg/kg, 35 grams, for 2 days/doses. Dose will be broken in individual vials of 1 x 20 grams, 1 x 10 grams, 1 x 5 grams. Filtration not required. Refer to IVIG infusion table for administration rate., IVIG Reason for use: Idiopathic or Immune Thrombocytopenia Purpura ? ITP New Bag 09/12/2024 10:01 PM EDT 20 g immune globulin (human) 10% in Solution (PRIVIGEN) IV Premix 5 g 5 g, Intravenous, Every 24 hours, First dose on Wed09/08/24 at 2030, For 3 doses, Intravenous Immune Globulin per [facility] Pharmacy Protocol: Total Dose Per Day: 1 mg/kg, 85 grams, for 3 days/doses. Dose will be broken in individual vials of 4 x 20 grams, 1 x 5 grams Filtration not required. Refer to IVIG infusion table for administration rate., IVIG Reason for use: Idiopathic or Immune Thrombocytopenia Purpura ? ITP New Bag 09/09/2024 1:14 AM EDT 5 g immune globulin (human) 10% in Solution (PRIVIGEN) IV Premix 5 g 5 g, Intravenous, Every 24 hours, First dose on Wed09/09/24 at 1800, For 2 doses, Intravenous Immune Globulin per [facility] Pharmacy Protocol: Total Dose Per Day: 0.4 g/kg, 35 grams, for 2 days/doses. Dose will be broken in individual vials of 1 x 20 grams, 1 x 10 grams, and 1 x 5 grams. Filtration not required. Refer to IVIG infusion table for administration rate., IVIG Reason for use: Idiopathic or Immune Thrombocytopenia Purpura ? ITP Rate/Dose Change 09/10/2024 11:26 PM EDT immune globulin (human) 10% in Solution (PRIVIGEN) IV Premix 5 g 5 g, Intravenous, Every 24 hours, First dose on Wed09/11/24 at 2000, For 2 doses, Intravenous Immune Globulin per [facility] Pharmacy Protocol: Total Dose Per Day: 0.4 mg/kg, 35 grams, for 2 days/doses. Dose will be broken in individual vials of 1 x 20 grams, 1 x 10 grams, 1 x 5 grams. Filtration not required. Refer to IVIG infusion table for administration rate., IVIG Reason for use: Idiopathic or Immune Thrombocytopenia Purpura ? ITPIndications:Viral Infection New Bag 09/12/2024 8:00 PM EDT 5 g insulin lispro (HumaLOG/ADMELOG) 100 units/mL injection 1-6 Units 1-6 Units, Subcutaneous, Every 4 hours scheduled, First dose on Wed09/19/24 at 1230, DO NOT HOLD IF NPO Notify provider if Blood Glucose LESS than 70 For BG 141-180 administer 1 unit For BG 181-220 administer 2 units For BG 221-260 administer 3 units For BG 261-300 administer 4 units For BG 301-340 administer 5 units For BG MORE than 340, administer 6 units AND notify provider Given 09/20/2024 12:27 PM EDT 1 Units Abdominal Tissue insulin lispro (HumaLOG/ADMELOG) 100 units/mL injection 3-11 Units 3-11 Units, Subcutaneous, Every 4 hours scheduled, First dose on Wed09/10/24 at 1200, These doses are to be administered when Tube Feed/TPN is infusing. HOLD and call provider if Tube Feed/TPN is interrupted for greater than 2 hours. Notify provider if Blood Glucose LESS than 70 For BG 111-140 administer 3 units For BG 141-170 administer 4 units For BG 171-200 administer 5 units For BG 201-230 administer 6 units For BG 231-260 administer 7 units For BG 261-290 administer 8 units For BG 291-320 administer 9 units For BG 321-350 administer 10 units For BG MORE than 350, administer 11 units AND notify provider Given 09/19/2024 4:23 AM EDT 3 Units Abdominal Tissue iohexol (OMNIPAQUE) 350 mg/mL injection 40 mL 40 mL, Intravenous, Once in imaging, contrast, Starting on Wed09/12/24 at 0143, For 1 dose, Radiology Appointment Given 09/12/2024 1:43 AM EDT 40 mL iohexol (OMNIPAQUE) 350 mg/mL injection 40 mL 40 mL, Intravenous, Once in imaging, contrast, Starting on Wed09/19/24 at 1346, For 1 dose, Radiology Appointment Given 09/19/2024 1:47 PM EDT 40 mL iohexol (OMNIPAQUE) 350 mg/mL injection 60 mL 60 mL, Intravenous, Once in imaging, contrast, Starting on Wed09/08/24 at 1207, For 1 dose, Radiology Appointment Given 09/08/2024 12:07 PM EDT 60 mL ketamine 1000 mg in 100 mL NS infusion (10 mg/mL) (premix) 10 mcg/kg/min ? 97.3 kg (5.838 mL/hr, rounded to 5.8 mL/hr), Intravenous, Continuous, Starting on 09/11/24 at 1130, For sedation ONLY. Patient MUST be on mechanical ventilation in an ICU level of care or equivalent setting. Max rate of 70 mcg/kg/min. Rate changes require a new order. Rate/Dose Verify 09/17/2024 9:00 AM EDT 10 mcg/kg/min 5.8 mL/hr lactulose (ENULOSE) 10 gm/15 mL solution 20 g 20 g, Feeding Tube, Once, On Heidy 09/14/24 at 1730, For 1 dose Given 09/14/2024 6:02 PM EDT 20 g lactulose (ENULOSE) 10 gm/15 mL solution 20 g 20 g, OG Tube, 2 times daily, First dose (after last modification) on Wed09/15/24 at 0900, Administer until bowel movement Given 09/18/2024 10:31 AM EDT 20 g linezolid (ZYVOX) IVPB 600 mg in 300 mL D5W (premix) 600 mg, Intravenous, Administer over 60 Minutes, Every 12 hours, First dose on Heidy 09/07/24 at 1730, These are the approved indications of use for linezolid at [facility]. Please use Other to document an indication not listed (ID provider approval will be required). Other, Specify: concern for mastoiditis, Please document the authorizing Infectious Disease provider: Infectious Disease Physician, Specify Approving Provider: kojo Harrell 09/08/2024 10:10 AM EDT 600 mg 300 mL/hr LORazepam (ATIVAN) 2 MG/ML injection - ADS Override Pull Starting on 09/09/24 at 1218, For 1 dose, Marie Vo: cabinet override If ordered IV Push: Dilute with equal amount of normal saline. Do not exceed 2 mg/minute or 0.05 mg/kg over 2-5 minutes. Monitor I.V. site during administration. Avoid intra-arterial administration. Avoid extravasation. LORazepam (ATIVAN) injection 0.25 mg 0.25 mg, Intravenous, Every 8 hours scheduled, First dose (after last modification) on Wed09/11/24 at 2200, If ordered IV Push: Dilute with equal amount of normal saline. Do not exceed 2 mg/minute or 0.05 mg/kg over 2-5 minutes. Monitor I.V. site during administration. Avoid intra-arterial administration. Avoid extravasation. Given 09/12/2024 5:57 AM EDT 0.25 mg LORazepam (ATIVAN) injection 0.5 mg 0.5 mg, Intravenous, Once, On Wed09/09/24 at 1230, For 1 dose, If ordered IV Push: Dilute with equal amount of normal saline. Do not exceed 2 mg/minute or 0.05 mg/kg over 2-5 minutes. Monitor I.V. site during administration. Avoid intra-arterial administration. Avoid extravasation. Given 09/09/2024 12:21 PM EDT 0.5 mg LORazepam (ATIVAN) injection 1 mg 1 mg, Intravenous, Every 6 hours, First dose on Wed09/11/24 at 1130, If ordered IV Push: Dilute with equal amount of normal saline. Do not exceed 2 mg/minute or 0.05 mg/kg over 2-5 minutes. Monitor I.V. site during administration. Avoid intra-arterial administration. Avoid extravasation. Given 09/11/2024 11:44 AM EDT 1 mg LORazepam (ATIVAN) injection 1 mg 1 mg, Intravenous, Once, On Wed09/15/24 at 0630, For 1 dose, If ordered IV Push: Dilute with equal amount of normal saline. Do not exceed 2 mg/minute or 0.05 mg/kg over 2-5 minutes. Monitor I.V. site during administration. Avoid intra-arterial administration. Avoid extravasation. Given 2024 6:05 AM EDT 1 mg meropenem (MERREM) 1 g in sodium chloride-MBP (NS) 100 mL IVPB-MBP 1 g, Intravenous, Administer over 3 Hours, Every 8 hours, First dose on Wed09/08/24 at 1700, These are the approved indications of use for meropenem at [facility]. Please use Other to document an indication not listed (ID provider approval will be required). ID approval, You have selected a restricted antimicrobial, please complete the following required documentation. Bacterial Infection Suspected, Type of Therapy: New Therapy, Indication: Bacteremia, Please document the authorizing Infectious Disease provider: Infectious Disease Physician, Specify Approving Provider: Dr. Kojo Harrell 09/19/2024 8:42 AM EDT 1 g 33.3 mL/hr methylPREDNISolone sodium succinate (SOLU-Medrol) injection 250 mg 250 mg, Intravenous, Every 6 hours scheduled, First dose (after last modification) on Wed09/08/24 at 1800, For 13 doses Given 09/11/2024 5:00 PM EDT 250 mg methylPREDNISolone sodium succinate (SOLU-Medrol) injection 40 mg 40 mg, Intravenous, Every 8 hours scheduled, First dose on Wed09/07/24 at 2200 Given 09/08/2024 1:46 PM EDT 40 mg methylPREDNISolone sodium succinate (SOLU-Medrol) injection 40 mg 40 mg, Intravenous, Every 8 hours scheduled, First dose on Wed09/12/24 at 0600 Given 09/18/2024 6:11 AM EDT 40 mg methylPREDNISolone sodium succinate (SOLU-Medrol) injection 40 mg 40 mg, Intravenous, Every 12 hours scheduled, First dose (after last modification) on Wed09/18/24 at 2100 Given 09/19/2024 8:43 AM EDT 40 mg methylPREDNISolone sodium succinate (SOLU-Medrol) injection 40 mg 40 mg, Intravenous, Every 24 hours scheduled, First dose (after last modification) on Wed09/20/24 at 0900 Given 09/22/2024 10:56 AM EDT 40 mg metoPROLOL TARTRATE (LOPRESSOR) tablet 25 mg 25 mg, Feeding Tube, Every 12 hours scheduled, First dose on Wed09/12/24 at 1030, Hold for HR less than 45 bpm and/or SBP less than 90 mmHg. Notify provider if a dose is held. Given 09/13/2024 8:18 AM EDT 25 mg metoPROLOL TARTRATE (LOPRESSOR) tablet 25 mg 25 mg, Feeding Tube, Once, On Wed09/13/24 at 1000, For 1 dose, Hold for HR less than 45 bpm and/or SBP less than 90 mmHg. Notify provider if a dose is held. Given 09/13/2024 10:32 AM EDT 25 mg metoPROLOL TARTRATE (LOPRESSOR) tablet 50 mg 50 mg, Feeding Tube, Every 12 hours scheduled, First dose (after last modification) on Wed09/13/24 at 2100, Hold for HR less than 45 bpm and/or SBP less than 90 mmHg. Notify provider if a dose is held. Given 09/20/2024 9:41 PM EDT 50 mg metoPROLOL TARTRATE (LOPRESSOR) tablet 50 mg 50 mg, NG Tube, Every 12 hours scheduled, First dose (after last modification) on Heidy 09/21/24 at 0900, Hold for HR less than 45 bpm and/or SBP less than 90 mmHg. Notify provider if a dose is held. Given 09/21/2024 10:59 AM EDT 50 mg metroNIDAZOLE (FLAGYL) IVPB 500 mg in 100 mL NS (premix) 500 mg, Intravenous, Administer over 60 Minutes, Every 12 hours, First dose on Heidy 09/07/24 at 1730, All antimicrobials used at [facility] require an indication. Please complete the following documentation. Bacterial Infection Suspected, Type of Therapy: New Therapy, Indication: HEENT coverage New Bag 09/08/2024 5:25 AM EDT 500 mg 100 mL/hr midazolam (VERSED) 2 mg/2 mL injection - ADS Override Pull Starting on Wed09/08/24 at 1314, For 1 dose, Farhat Ortiz: cabinet override For IV Push: draw up dose to final volume of 10 mL in NS. Administer over 2 minutes. midazolam (VERSED) 2 mg/2 mL injection 2 mg 2 mg, Intravenous, Once, On Wed09/08/24 at 1330, For 1 dose, For IV Push: draw up dose to final volume of 10 mL in NS. Administer over 2 minutes. Given 09/08/2024 1:19 PM EDT 2 mg midazolam (VERSED) 2 mg/2 mL injection 2 mg 2 mg, Intravenous, Once, On Wed09/10/24 at 2030, For 1 dose, For IV Push: draw up dose to final volume of 10 mL in NS. Administer over 2 minutes. Given 09/10/2024 8:08 PM EDT 2 mg midazolam (VERSED) 2 mg/2 mL injection 2 mg 2 mg, Intravenous, Once, On Wed09/11/24 at 0230, For 1 dose, For IV Push: draw up dose to final volume of 10 mL in NS. Administer over 2 minutes. Given 09/11/2024 2:12 AM EDT 2 mg midazolam (VERSED) 2 mg/2 mL injection 2 mg 2 mg, Intravenous, Every 4 hours PRN, anxiety, Starting on Wed09/11/24 at 0432, For IV Push: draw up dose to final volume of 10 mL in NS. Administer over 2 minutes. Given 09/11/2024 8:01 AM EDT 2 mg midazolam (VERSED) 2 mg/2 mL injection 2 mg 2 mg, Intravenous, Once, On Wed09/12/24 at 0130, For 1 dose, For IV Push: draw up dose to final volume of 10 mL in NS. Administer over 2 minutes. Given 09/12/2024 1:15 AM EDT 2 mg midazolam (VERSED) 2 mg/2 mL injection 2 mg 2 mg, Intravenous, Every 4 hours PRN, anxiety, Starting on Wed09/12/24 at 0333, For IV Push: draw up dose to final volume of 10 mL in NS. Administer over 2 minutes. Given 09/12/2024 5:57 AM EDT 2 mg midazolam (VERSED) 2 mg/2 mL injection 2 mg 2 mg, Intravenous, Once, On Wed09/12/24 at 2200, For 1 dose, For IV Push: draw up dose to final volume of 10 mL in NS. Administer over 2 minutes. Given 09/12/2024 11:25 PM EDT 2 mg midazolam (VERSED) 2 mg/2 mL injection 4 mg 4 mg, Intravenous, Once, On Wed09/08/24 at 1000, For 1 dose, For IV Push: draw up dose to final volume of 10 mL in NS. Administer over 2 minutes. Given 09/08/2024 10:00 AM EDT 4 mg midazolam (VERSED) 5 MG/5ML injection - ADS Override Pull Starting on Wed09/08/24 at 0944, For 1 dose, Mariana Carpenter: cabinet override For IV Push: draw up dose to final volume of 10 mL in NS. Administer over 2 minutes. morphine preservative free 4 mg/mL injection 1 mg 1 mg, Intravenous, Once, On Heidy 09/07/24 at 2200, For 1 dose Given 09/07/2024 10:02 PM EDT 1 mg multivitamin with minerals (CEROVITE) liquid 15 mL 15 mL, Feeding Tube, Daily, First dose on Wed09/15/24 at 1130 Given 09/21/2024 10:58 AM EDT 15 mL naloxegol (MOVANTIK) tablet 25 mg 25 mg, Oral, Daily before breakfast, First dose on Wed09/12/24 at 0800, Administer on an empty stomach at least 1 hour prior to or 2 hours after the first meal of the day., Home Med? If Yes, then Naloxegol can be ordered: No, Failed adquate Senokot trail? Yes, Failed adequate Lactulose or Miralax trial? Yes, Failed/Unacceptable stimulant suppository or enema trial? NoIndications:Opioid-In duced Constipation Given 09/12/2024 8:49 AM EDT 25 mg naloxegol (MOVANTIK) tablet 25 mg 25 mg, Feeding Tube, Daily before breakfast, First dose (after last modification) on Wed09/13/24 at 0730, Administer on an empty stomach at least 1 hour prior to or 2 hours after the first meal of the day., Home Med? If Yes, then Naloxegol can be ordered: No, Failed adquate Senokot trail? Yes, Failed adequate Lactulose or Miralax trial? Yes, Failed/Unacceptable stimulant suppository or enema trial? NoIndications:Opioid-In duced Constipation Given 09/18/2024 8:18 AM EDT 25 mg norepinephrine (LEVOPHED) IV infusion 8 mg in 250 mL NS (premix) 2-60 mcg/min (3.75-112.5 mL/hr, rounded to 3.8-112.5 mL/hr), Intravenous, Titrated, Starting on Wed09/08/24 at 1130, Starting Dose: 2 mcg/min or as specified in dose field. Titrate by: 2 mcg/min every 1 minutes. Titration Goal: MAP greater than or equal to 65. Maximum Dose: As specified in dose field. Rate/Dose Verify 09/08/2024 6:00 PM EDT 2 mcg/min 3.8 mL/hr nystatin (MYCOSTATIN) [id number] UNIT/ML suspension 500,000 Units 500,000 Units, Oral, 4 times daily, First dose on Wed09/15/24 at 1800, Swish and Swallow. Swish in the mouth for as long as possible (several minutes) before swallowing. Shake well before using. Given 09/20/2024 9:41 PM EDT 500,000 Units PANTOprazole (PROTONIX) injection 40 mg 40 mg, Intravenous, Daily, First dose on Wed09/08/24 at 0900, Reconstitute each 40 mg vial with 10 ml NS and administer over 2 minutes Given 09/09/2024 8:28 AM EDT 40 mg perflutren lipid microsphere (DEFINITY) 1.3 mL in sodium chloride (NS) 0.9 % 10 mL 0.5-8 mL, Intravenous, Once in imaging, other, Starting on Wed09/11/24 at 0745, For 1 dose, Document total dose administered per policy Given 09/11/2024 7:46 AM EDT 3 mL polyethylene glycol (miraLAx) packet 17 g 17 g, Oral, 2 times daily, First dose on Wed09/11/24 at 0900, Stir and dissolve in 4-8 oz of fluids. Given 09/12/2024 8:50 AM EDT 17 g polyethylene glycol (miraLAx) packet 17 g 17 g, Feeding Tube, 2 times daily, First dose (after last modification) on Wed09/12/24 at 2100, Stir and dissolve in 4-8 oz of fluids. Given 09/21/2024 10:58 AM EDT 17 g potassium chloride (KLOR-CON) packet 20 mEq 20 mEq, Oral, Every 2 hours, First dose on Wed09/17/24 at 1630, For 2 doses, Dissolve contents of 1 packet in 4 ounces of water. Given 09/17/2024 6:29 PM EDT 20 mEq potassium chloride (KLOR-CON) packet 40 mEq 40 mEq, NG Tube, Every 2 hours, First dose on Wed09/21/24 at 0800, For 2 doses, Dissolve contents of 1 packet in 4 ounces of water. Given 09/21/2024 12:25 PM EDT 40 mEq potassium chloride IVPB 10 mEq in 100 mL SW (premix) 10 mEq, Intravenous, at 100 mL/hr, Once, On Wed09/19/24 at 0200, For 1 dose New Bag 09/19/2024 2:07 AM EDT 10 mEq 100 mL/hr potassium chloride IVPB 10 mEq in 100 mL SW (premix) 10 mEq, Intravenous, at 100 mL/hr, Once, On Wed09/20/24 at 0230, For 1 dose New Bag 09/20/2024 3:03 AM EDT 10 mEq 100 mL/hr propofol (diPRIvan) 1000 MG/100ML injection - ADS Override Pull Starting on Wed09/08/24 at 0928, For 1 dose, Farhat Ortiz: cabinet override Do not use if contamination is suspected. Do not administer through the same IV catheter with blood or plasma. *Shake well before using* propofol (diPRIvan) 1000 MG/100ML injection 5-75 mcg/kg/min ? 95.9 kg (2.877-43.155 mL/hr, rounded to 2.9-43.2 mL/hr), Intravenous, Titrated, Starting on Wed09/08/24 at 1000, Starting Dose: 50 mcg/kg/min or as specified in dose field. If patient less than 71 kg: titrate by 5 mcg/kg/min every 5 minutes. If patient 71 kg or greater: titrate by 10 mcg/kg/min every 5 minutes. Titration Goal: RASS between -2 and 0 Maximum Dose: 75 mcg/kg/min or as specified in dose field. Do not use if contamination is suspected. Do not administer through the same IV catheter with blood or plasma. *Shake well before using* Rate/Dose Verify 09/10/2024 6:00 PM EDT 10 mcg/kg/min 5.8 mL/hr protein supplement feeding tube flush (PROSOURCE TF) 3 oz 3 oz, Feeding Tube, 2 times daily, First dose on Wed09/13/24 at 1430, 1.5 Ounce = 1 packet Given 09/18/2024 10:30 AM EDT 3 oz QUEtiapine (SEROquel) tablet 100 mg 100 mg, Feeding Tube, Nightly, First dose (after last modification) on Wed09/13/24 at 2100, Hold for Qtc > 500, On hold since Wed2024 at 1227 until manually unheld Given 09/14/2024 8:18 PM EDT 100 mg QUEtiapine (SEROquel) tablet 25 mg 25 mg, Oral, 2 times daily, First dose on Wed09/11/24 at 1000 Given 09/12/2024 8:50 AM EDT 25 mg QUEtiapine (SEROquel) tablet 25 mg 25 mg, Feeding Tube, 2 times daily, First dose (after last modification) on Wed09/12/24 at 1500 Given 09/13/2024 8:18 AM EDT 25 mg QUEtiapine (SEROquel) tablet 50 mg 50 mg, Oral, Nightly, First dose on Wed09/11/24 at 2100 Given 09/11/2024 8:31 PM EDT 50 mg QUEtiapine (SEROquel) tablet 50 mg 50 mg, Feeding Tube, Nightly, First dose (after last modification) on Wed09/12/24 at 2100, Hold for Qtc > 500 Given 09/12/2024 8:06 PM EDT 50 mg QUEtiapine (SEROquel) tablet 50 mg 50 mg, Feeding Tube, 2 times daily, First dose (after last modification) on Wed09/13/24 at 1500, Hold for Qtc > 500, On hold since Wed2024 at 1227 until manually unheld Given 2024 8:46 AM EDT 50 mg senna-docusate (SENNA-S) 8.6-50 MG tablet 2 tablet 2 tablet, OG Tube, Nightly, First dose (after last modification) on Wed09/08/24 at 2100, Hold for diarrhea Given 09/10/2024 8:08 PM EDT 2 tablets senna-docusate (SENNA-S) 8.6-50 MG tablet 2 tablet 2 tablet, OG Tube, 2 times daily, First dose (after last modification) on Wed09/11/24 at 0900, Hold for diarrhea Given 09/12/2024 8:50 AM EDT 2 tablets senna-docusate (SENNA-S) 8.6-50 MG tablet 2 tablet 2 tablet, Feeding Tube, 2 times daily, First dose (after last modification) on Wed09/12/24 at 2100, Hold for diarrhea Given 09/21/2024 10:58 AM EDT 2 tablets SMOG (Soap Suds, Mineral Oil, Glycerin) enema Rectal, Once, On Wed09/15/24 at 1600, For 1 dose, Combine Mineral Oil 133 mL, Glycerin 177 mL and Soap suds 177 mL in irrigation bottle or enema bag for administration. Total combined enema volume = 487 mL. Given 2024 5:52 PM EDT sodium zirconium cyclosilicate (LOKELMA) packet 10 g 10 g, Feeding Tube, Once, On Wed09/15/24 at 1400, For 1 dose, Administer at least 2 hours before or after other oral drugs. Empty entire contents of packet(s) containing sodium zirconium cyclosilicate into a glass containing approximately 45 mL of water, or more if desired. Stir thoroughly and administer immediately. Given 2024 2:21 PM EDT 10 g sodium zirconium cyclosilicate (LOKELMA) packet 15 g 15 g, Feeding Tube, Once, On Wed09/14/24 at 0400, For 1 dose, Administer at least 2 hours before or after other oral drugs. Empty entire contents of packet(s) containing sodium zirconium cyclosilicate into a glass containing approximately 45 mL of water, or more if desired. Stir thoroughly and administer immediately. Given 09/14/2024 4:48 AM EDT 15 g thiamine (VITAMIN B-1) injection 100 mg 100 mg, Intravenous, Daily, First dose on Wed09/18/24 at 1930, If ordered IV Push: administer over 5 minutes. Given 09/20/2024 9:26 AM EDT 100 mg thiamine mononitrate (VITAMIN B-1) tablet 100 mg 100 mg, Feeding Tube, Daily, First dose on Wed09/15/24 at 1130 Given 09/21/2024 10:58 AM EDT 100 mg documented in this encounter Active and Recently Administered Medications Times are shown in EDT. Scheduled Medication Order 09/20/2024 09/21/2024 09/22/2024 calcium carbonate (TUMS) chewable tablet 1,000 mg (COMPLETED) 1,000 mg, Oral, Once, On Wed09/21/24 at 0230, For 1 dose 0247 (Given - Provider: Lydia Diego RN) chlorhexidine (PERIDEX) 0.12 % oral solution 15 mL (CANCELED) 15 mL, Mouth/Throat, 2 times daily, First dose on Wed09/08/24 at 1000, Swab lips and mouth 0929 (Given - Provider: Mariana Carpenter RN)1256 (JUL Hold - Provider: Automatic Transfer Provider - Reason: Unreviewed Transfer Orders)1258 (MAR Unhold - Provider: Tim Haas RN)2141 (Given - Provider: Lydia Diego RN) 1122 (Given - Provider: Jenn Turner RN)210 (Given - Provider: Judy Nielsen RN) 1053 (Given - Provider: Parisa Rosa RN) chlorhexidine gluconate 2 % wipes - urethral catheter CHG application (CANCELED) Topical, Daily, First dose on Wed09/14/24 at 0900, Each pack = 6 wipes. Dose = 1 each. 0929 (Given - Provider: Mariana Carpenter RN)1256 (JUL Hold - Provider: Automatic Transfer Provider - Reason: Unreviewed Transfer Orders)1258 (MAR Unhold - Provider: Tim Haas RN) 1549 (Not Given - Provider: Tim Haas RN - Reason: Other - Comment required - Comment: No indication, notified) FLUoxetine (PROzac) 20 MG/5ML solution 40 mg (CANCELED) 40 mg, NG Tube, Daily, First dose on Wed09/21/24 at 0900 1346 (Given - Provider: Tim Haas RN) FLUoxetine (PROzac) 20 MG/5ML solution 40 mg 40 mg, Oral, Daily, First dose (after last modification) on Wed09/22/24 at 0900 1056 (Given - Provider: Parisa Rosa RN) folic acid (FOLVITE) tablet 1 mg (CANCELED) 1 mg, Feeding Tube, Daily, First dose on Wed09/15/24 at 1130 0900 (Not Given - Provider: Mariana Carpenter RN - Reason: See Provider Order)2034 (Provider Unheld - Provider: Pauline Salinas MD) 1058 (Given - Provider: Jenn Turner, BRIAN) folic acid (FOLVITE) tablet 1 mg 1 mg, Oral, Daily, First dose (after last modification) on Wed09/22/24 at 0900 1054 (Given - Provider: Parisa Rosa, BRIAN) folic acid injection 1 mg/0.2 mL syringe (premix) (CANCELED) 1 mg, Intravenous, Administer over 0.5 Minutes, Daily, First dose on Wed09/18/24 at 1930 1108 (Given - Provider: Mariana Carpenter RN)1256 (MAR Hold - Provider: Automatic Transfer Provider - Reason: Unreviewed Transfer Orders)1258 (MAR Unhold - Provider: Tim Haas, BRIAN) insulin lispro (HumaLOG/ADMELOG) 100 units/mL injection 1-6 Units (CANCELED) 1-6 Units, Subcutaneous, Every 4 hours scheduled, First dose on Wed09/19/24 at 1230, DO NOT HOLD IF NPO Notify provider if Blood Glucose LESS than 70 For BG 141-180 administer 1 unit For BG 181-220 administer 2 units For BG 221-260 administer 3 units For BG 261-300 administer 4 units For BG 301-340 administer 5 units For BG MORE than 340, administer 6 units AND notify provider 0056 (Not Given - Provider: Lloyd Ramírez RN - Reason: Dose held per order parameters)0435 (Not Given - Provider: Lloyd Ramírez RN - Reason: Dose held per order parameters)0840 (Not Given - Provider: Mariana Carpenter RN - Reason: Dose held per order parameters)1227 (Given - Provider: Mariana Carpenter RN)1256 (MAR Hold - Provider: Automatic Transfer Provider - Reason: Unreviewed Transfer Orders)1258 (MAR Unhold - Provider: Tim Haas, BRIAN)1640 (Not Given - Provider: Tim Haas RN - Reason: Dose held per order parameters)2037 (Not Given - Provider: Lydia Diego RN - Reason: Dose held per order parameters)2355 (Not Given - Provider: Lydia Diego RN - Reason: Dose held per order parameters) 0412 (Not Given - Provider: Lydia Diego RN - Reason: Dose held per order parameters)0900 (Not Given - Provider: Kathleen Keith RN - Reason: Dose held per order parameters)1308 (Not Given - Provider: Tim Haas RN - Reason: Dose held per order parameters) insulin lispro (HumaLOG/ADMELOG) 100 units/mL injection 1-6 Units 1-6 Units, Subcutaneous, 4 times daily before meals and nightly, First dose (after last modification) on Wed09/21/24 at 1630, DO NOT HOLD IF NPO Notify provider if Blood Glucose LESS than 70 For BG 141-180 administer 1 unit For BG 181-220 administer 2 units For BG 221-260 administer 3 units For BG 261-300 administer 4 units For BG 301-340 administer 5 units For BG MORE than 340, administer 6 units AND notify provider 1710 (Not Given - Provider: Tim Haas RN - Reason: Dose held per order parameters)2047 (Not Given - Provider: Judy Nielsen RN - Reason: Dose held per order parameters) 0905 (Not Given - Provider: Parisa Rosa RN - Reason: Dose held per order parameters)1310 (Not Given - Provider: Parisa Rosa RN - Reason: Dose held per order parameters)1630 (Due)2100 (Due) methylPREDNISolone sodium succinate (SOLU-Medrol) injection 40 mg (CANCELED) 40 mg, Intravenous, Every 24 hours scheduled, First dose (after last modification) on Wed09/20/24 at 0900 0926 (Given - Provider: Mariana Carpenter RN)1256 (MAR Hold - Provider: Automatic Transfer Provider - Reason: Unreviewed Transfer Orders)1258 (MAR Unhold - Provider: Tim Haas RN) 1058 (Given - Provider: eJnn Turner RN) 1056 (Given - Provider: Parisa Rosa RN) metoPROLOL TARTRATE (LOPRESSOR) tablet 50 mg (CANCELED) 50 mg, Feeding Tube, Every 12 hours scheduled, First dose (after last modification) on Wed09/13/24 at 2100, Hold for HR less than 45 bpm and/or SBP less than 90 mmHg. Notify provider if a dose is held. 0900 (Not Given - Provider: Mariana Carpenter RN - Reason: See Provider Order)2034 (Provider Unheld - Provider: Pauline Salinas MD)2140 (Given - Provider: Lydia Diego, BRIAN) metoPROLOL TARTRATE (LOPRESSOR) tablet 50 mg (CANCELED) 50 mg, NG Tube, Every 12 hours scheduled, First dose (after last modification) on Heidy 09/21/24 at 0900, Hold for HR less than 45 bpm and/or SBP less than 90 mmHg. Notify provider if a dose is held. 1059 (Given - Provider: Jenn Turner RN) metoPROLOL TARTRATE (LOPRESSOR) tablet 50 mg 50 mg, Oral, Every 12 hours scheduled, First dose (after last modification) on Heidy 09/21/24 at 2100, Hold for HR less than 45 bpm and/or SBP less than 90 mmHg. Notify provider if a dose is held. 2105 (Given - Provider: Judy Nielsen RN) 105 (Given - Provider: Parisa Rosa, BRIAN)2100 (Due) multivitamin with minerals (CEROVITE) liquid 15 mL (CANCELED) 15 mL, Feeding Tube, Daily, First dose on Wed09/15/24 at 1130 0900 (Not Given - Provider: Mariana Carpenter RN - Reason: See Provider Order)2034 (Provider Unheld - Provider: Pauline Salinas MD) 1058 (Given - Provider: Jenn Turner RN) multivitamin with minerals (CEROVITE) liquid 15 mL 15 mL, Oral, Daily, First dose (after last modification) on Wed09/22/24 at 0900 1055 (Given - Provider: Parisa Rosa RN) nicotine (NICODERM CQ) 21 MG/24HR patch 1 patch 1 patch, Transdermal, Daily, First dose on Wed09/08/24 at 0900, Apply new patch to nonhairy, clean, dry skin on the upper body or upper outer arm. Rotate sites. Do not use patch if damaged or cut., Remove Patch at Bedtime? No 0839 (Patch Removed - Provider: Marinaa Carpenter, BRIAN)0927 (Patch Applied - Provider: Mariana Carpenter RN)1256 (MAR Hold - Provider: Automatic Transfer Provider - Reason: Unreviewed Transfer Orders)1258 (MAR Unhold - Provider: Tim Haas RN) 1059 (Patch Applied - Provider: Jenn Turner RN)1106 (Patch Removed - Provider: Jenn Turner RN) 1058 (Patch Removed - Provider: Parisa Rosa, BRIAN)1101 (Not Given - Provider: Parisa Rosa RN - Reason: Patient/family refused) nystatin (MYCOSTATIN) [id number] UNIT/ML suspension 500,000 Units (CANCELED) 500,000 Units, Oral, 4 times daily, First dose on Wed09/15/24 at 1800, Swish and Swallow. Swish in the mouth for as long as possible (several minutes) before swallowing. Shake well before using. 0925 (Given - Provider: Mariana Carpenter RN)1227 (Given - Provider: Mariana Carpenter RN)1256 (MAR Hold - Provider: Automatic Transfer Provider - Reason: Unreviewed Transfer Orders)1258 (MAR Unhold - Provider: Tim Haas, BRIAN)172 (Not Given - Provider: Tim Haas RN - Reason: NPO)2140 (Given - Provider: Lydia Diego, BRIAN) polyethylene glycol (miraLAx) packet 17 g (CANCELED) 17 g, Feeding Tube, 2 times daily, First dose (after last modification) on Wed09/12/24 at 2100, Stir and dissolve in 4-8 oz of fluids. 0900 (Not Given - Provider: Mariana Carpenter RN - Reason: See Provider Order)2034 (Provider Unheld - Provider: Pauline Salinas MD)2101 (Not Given - Provider: Lydia Diego RN - Reason: Other - Comment required - Comment: flexiseal for ctn BM) 1058 (Given - Provider: Jenn Turner, RN) potassium chloride (KLOR-CON) packet 40 mEq (COMPLETED) 40 mEq, NG Tube, Every 2 hours, First dose on Wed09/21/24 at 0800, For 2 doses, Dissolve contents of 1 packet in 4 ounces of water. 1059 (Given - Provider: Jenn Turner RN)1225 (Given - Provider: Kathleen Keith RN) potassium chloride IVPB 10 mEq in 100 mL SW (premix) (COMPLETED) 10 mEq, Intravenous, at 100 mL/hr, Once, On Wed09/20/24 at 0230, For 1 dose 0303 (New Bag - Provider: Lloyd Ramírez, BRIAN) senna-docusate (SENNA-S) 8.6-50 MG tablet 2 tablet (CANCELED) 2 tablet, Feeding Tube, 2 times daily, First dose (after last modification) on Wed09/12/24 at 2100, Hold for diarrhea 0900 (Not Given - Provider: Mariana Carpenter RN - Reason: See Provider Order)2034 (Provider Unheld - Provider: Pauline Salinas MD)2101 (Not Given - Provider: Lydia Diego RN - Reason: Other- Comment on reason - Comment: has flexiseal w/ ctn BM) 1058 (Given - Provider: Jenn Turner, BRIAN) thiamine (VITAMIN B-1) injection 100 mg (CANCELED) 100 mg, Intravenous, Daily, First dose on Wed09/18/24 at 1930, If ordered IV Push: administer over 5 minutes. 0926 (Given - Provider: Mariana Carpenter RN)1256 (MAR Hold - Provider: Automatic Transfer Provider - Reason: Unreviewed Transfer Orders)1258 (MAR Unhold - Provider: Tim Haas RN) thiamine mononitrate (VITAMIN B-1) tablet 100 mg (CANCELED) 100 mg, Feeding Tube, Daily, First dose on Wed09/15/24 at 1130 0900 (Not Given - Provider: Mariana Carpenter RN - Reason: See Provider Order)2034 (Provider Unheld - Provider: Pauline Salinas MD) 1058 (Given - Provider: Jenn Turner RN) thiamine mononitrate (VITAMIN B-1) tablet 100 mg 100 mg, Oral, Daily, First dose (after last modification) on Wed09/22/24 at 0900 1054 (Given - Provider: Parisa Rosa RN) Continuous Medication Order 09/20/2024 09/21/2024 09/22/2024 dextrose 5 % (D5W) infusion (CANCELED) 75 mL/hr, Intravenous, Continuous, Starting on Wed09/19/24 at 1500 0000 (Rate/Dose Verify - Provider: Lloyd Ramírez RN)0100 (Rate/Dose Verify - Provider: Lloyd Ramírez RN)0104 (New Bag - Provider: Lloyd Ramírez RN)0200 (Rate/Dose Verify - Provider: Lloyd Ramírez RN)0300 (Rate/Dose Verify - Provider: Lloyd Ramírez RN)0400 (Rate/Dose Verify - Provider: Lloyd Ramírez RN)0500 (Rate/Dose Verify - Provider: Lloyd Ramírez RN)0600 (Rate/Dose Verify - Provider: Lloyd Ramírez RN)0800 (Rate/Dose Verify - Provider: Mariana Carpenter RN)0900 (Rate/Dose Verify - Provider: Mariana Carpenter RN)1000 (Rate/Dose Verify - Provider: Mariana Carpenter RN)1055 (New Bag - Provider: Mariana Carpenter RN)1100 (Rate/Dose Verify - Provider: Mariana Carpenter RN)1200 (Rate/Dose Verify - Provider: Mariana Carpenter RN)1256 (MAR Hold - Provider: Automatic Transfer Provider - Reason: Unreviewed Transfer Orders)1258 (MAR Unhold - Provider: Tim Haas RN)2035 (New Bag - Provider: Lydia Diego RN) 0243 (Rate/Dose Change - Provider: Lydia Diego RN)0952 (Stopped - Provider: Kathleen Keith RN) heparin (porcine) IV infusion 25,000 units in 500 mL 0.45% NaCl (premix) 20.066 mL/hr (rounded from 20.0664 mL/hr = 10.8 Units/kg/hr ? 92.9 kg), Intravenous, Continuous, Starting on 09/16/24 at 1700, HEPARIN CARDIAC/LOW DOSE PROTOCOL: Initial Infusion Dose: See dose above, MAX initial dose 1,000 units/hr (83 kg and above) Dose adjustment instructions: - Obtain a Heparin Anti-factor Xa (Anti-Xa) level 6 hours after start of infusion and 6 hours after every dose change. - Once patient is within therapeutic range for two consecutive Anti-Xa measurements, then obtain Anti-Xa daily with AM labs until infusion is discontinued. When heparin infusion is interrupted: - For less than or equal to 90 minutes: ?~ Restart heparin infusion at the most recent dose and draw Anti-Xa level in 6 hours from restart. ?~ No bolus required. Adjust per protocol. - For greater than 90 minutes or if heparin interruption for unknown time period: ?~ Draw stat Anti-Xa level (Do not adjust infusion dose based on this Anti-Xa result). ~ Restart heparin infusion at most recent dose (most recent dose may be anytime during the patient's current admission). ~ Notify licensed practioner regarding interruption and discuss if IV bolus is necessary; licensed practioner to consider ordering IV bolus if greater than 6 hours heparin interruption. ?? ~ Draw Anti-Xa in 6 hours and proceed per protocol. - Document all pertinent communications with providers in the patient's record. - Adjust infusion based on Anti-Xa result per Cardiac/Low Dose protocol table: Concentration = 50 units/mL, Indication for Anticoagulation: Other, Specify: nonocclusive venous thrombus of bilateral IJV and L transverse sinus in the setting of meningitis 0000 (Rate/Dose Verify - Provider: Lloyd Ramírez RN)0100 (Rate/Dose Verify - Provider: Lloyd Ramírez RN)0200 (Rate/Dose Verify - Provider: Lloyd Ramírez RN)0300 (Rate/Dose Verify - Provider: Lloyd Ramírez RN)0400 (Rate/Dose Verify - Provider: Lloyd Ramírez RN)0500 (Rate/Dose Verify - Provider: Lloyd Ramírez RN)0600 (Rate/Dose Verify - Provider: Lloyd Ramírez RN)0710 (Handoff - Provider: Lloyd Ramírez RN)0800 (Rate/Dose Verify - Provider: Mariana Carpenter RN)0900 (Rate/Dose Verify - Provider: Mariana Carpenter RN)1000 (Rate/Dose Verify - Provider: Mariana Carpenter RN)1100 (Rate/Dose Verify - Provider: Mariana Carpenter, BRIAN)1200 (Rate/Dose Verify - Provider: Mariana Carpenter RN)1256 (MAR Hold - Provider: Automatic Transfer Provider - Reason: Unreviewed Transfer Orders)1258 (Handoff - Provider: Tim Haas RN)1258 (MAR Unhold - Provider: Tim Haas RN)1810 (New Bag - Provider: Tim Haas RN)1936 (Handoff - Provider: Tim Haas, RN) 0155 (Rate Change - High Risk Medication - Provider: Lydia Diego, RN)0726 (Handoff - Provider: Lydia Diego, BRIAN)1249 (Handoff - Provider: Tim Haas, RN)1819 (New Bag - Provider: Tim Haas, RN)1940 (Handoff - Provider: Tim Haas, RN) 0759 (Handoff - Provider: Judy Nielsen RN) PRN Medication Order 09/20/2024 09/21/2024 09/22/2024 acetaminophen (TYLENOL) tablet 975 mg 975 mg, NG Tube, Every 6 hours PRN, mild pain 1-3, Starting on Wed09/20/24 at 2034 0747 (Provider Unheld - Provider: Kira Bruce MD) barium sulfate (VARIBAR HONEY,VARIBAR NECTAR,TAGITOL V) 40 % 20 mL (COMPLETED) 20 mL, Oral, Once in imaging, contrast, Starting on Wed09/21/24 at 1030, For 1 dose, Radiology Appointment 1032 (Given - Provider: Yobany Alvarez, RT) barium sulfate (VARIBAR HONEY,VARIBAR NECTAR,TAGITOL V) 40 % 5 mL (COMPLETED) 5 mL, Oral, Once in imaging, contrast, Starting on Wed09/21/24 at 1030, For 1 dose, Radiology Appointment 1031 (Given - Provider: Yobany Alvarez, RT) barium sulfate (VARIBAR PUDDING) 40 % 10 mL (COMPLETED) 10 mL, Oral, Once in imaging, contrast, Starting on Wed09/21/24 at 1030, For 1 dose, Radiology Appointment 1031 (Given - Provider: Yobany Alvarez, RT) barium sulfate (VARIBAR THIN) 40 % 12 g (COMPLETED) 12 g (30 mL), Oral, Once in imaging, contrast, Starting on Wed09/21/24 at 1030, For 1 dose, Radiology Appointment 1031 (Given - Provider: Yobany Alvarez, RT) bisacodyl (DULCOLAX) suppository 10 mg 10 mg, Rectal, Daily PRN, constipation, if no bowel movement by day 2, Starting on Wed09/07/24 at 1621 1256 ([facility] Hold - Provider: Automatic Transfer Provider - Reason: Unreviewed Transfer Orders)1258 ([facility] Unhold - Provider: Tim Haas RN) dextrose 50 % solution 12.5 g(Linked Group 1) 12.5 g, Intravenous, Every 15 min PRN, low blood sugar, between 50 and 69 mg/dL, Starting on Wed09/19/24 at 1224, For patient with IV access who is NPO or unable to swallow. See Hypoglycemia Management guideline. 1256 ([facility] Hold - Provider: Automatic Transfer Provider - Reason: Unreviewed Transfer Orders)1258 ([facility] Unhold - Provider: Tim Haas RN) dextrose 50 % solution 25 g(Linked Group 1) 25 g, Intravenous, Every 15 min PRN, low blood sugar, less than 50 mg/dL, Starting on Wed09/19/24 at 1224, For patient with IV access who is NPO or unable to swallow. See Hypoglycemia Management guideline. 1256 ([facility] Hold - Provider: Automatic Transfer Provider - Reason: Unreviewed Transfer Orders)1258 ([facility] Unhold - Provider: Tim Haas RN) gadobutrol (GADAVIST) injection 9 mL (COMPLETED) 9 mL, Intravenous, Once in imaging, contrast, Starting on Wed09/20/24 at 0215, For 1 dose, Radiology Appointment 0216 (Given - Provider: Yasmine Brooks, RT) glucagon (GLUCAGEN) injection 1 mg(Linked Group 1) 1 mg, Intramuscular, Daily PRN, low blood sugar, for Blood Glucose LESS than 70 mg/dL and NPO and no IV access, Starting on Wed09/19/24 at 1224, Glucagon may be repeated x 1 (for a total of 2 doses per hypoglycemic event) if patient remains hypoglycemic after first dose. Do not use with hepatic disease or alcohol intoxication. See Hypoglycemia Management guideline. Reconstitute vial with 1 mL sterile water for injection. 1256 ([facility] Hold - Provider: Automatic Transfer Provider - Reason: Unreviewed Transfer Orders)1258 ([facility] Unhold - Provider: Tim Haas RN) glucose (GLUTOSE 15) 40 % oral gel 37.5 g(Linked Group 1) 37.5 g (1 Tube), Oral, Every 15 min PRN, low blood sugar, between 50 and 69 mg/dL, Starting on 09/19/24 at 1224, Juice or soda is preferred for alert patients (4 oz juice or 6 oz soda). Use glucose gel for patients with fluid restriction. See Hypoglycemia Management guideline. Each 37.5 gram tube of glucose 40 % = 15 grams of glucose. 1256 ([facility] Hold - Provider: Automatic Transfer Provider - Reason: Unreviewed Transfer Orders)1258 ([facility] Unhold - Provider: Tim Haas RN) glucose (GLUTOSE 15) 40 % oral gel 75 g(Linked Group 1) 75 g (2 Tube), Oral, Every 15 min PRN, low blood sugar, less than 50 mg/dL, Starting on 09/19/24 at 1224, Juice or soda is preferred for alert patients (8 oz juice or 12 oz soda). Use glucose gel for patients with fluid restriction. See Hypoglycemia Management guideline. Each 37.5 gram tube of glucose 40 % = 15 grams of glucose. 1256 ([facility] Hold - Provider: Automatic Transfer Provider - Reason: Unreviewed Transfer Orders)1258 ([facility] Unhold - Provider: Tim Haas RN) heparin (porcine) 1000 unit/mL injection 2,800 Units 2,800 Units (rounded from 2,787 Units = 30 Units/kg ? 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 1256 ([facility] Hold - Provider: Automatic Transfer Provider - Reason: Unreviewed Transfer Orders)1258 ([facility] Unhold - Provider: Tim Haas RN) lactulose (ENULOSE) 10 gm/15 mL solution 20 g 20 g, Oral, Daily PRN, constipation, Starting on [place] 09/21/24 at 1436, Administer until bowel movement naloxone (NARCAN) 0.4 mg/mL injection 0.4 mg 0.4 mg, Intravenous, Every 5 min PRN, opioid reversal, respiratory depression, Starting on [place] 09/07/24 at 1621, Notify provider if administered 1256 ([facility] Hold - Provider: Automatic Transfer Provider - Reason: Unreviewed Transfer Orders)1258 (MAR Unhold - Provider: Tim Haas RN) polyethylene glycol (miraLAx) packet 17 g 17 g, Oral, Daily PRN, constipation, Starting on Wed09/22/24 at 1200, Stir and dissolve in 4-8 oz of fluids. senna-docusate (SENNA-S) 8.6-50 MG tablet 2 tablet 2 tablet, Oral, Nightly PRN, constipation, Starting on Wed09/22/24 at 1200, Hold for diarrhea Linked Groups Order Group 1: glucose (GLUTOSE 15) 40 % oral gel 37.5 gJump to med 37.5 g (1 Tube), Oral, Every 15 min PRN, low blood sugar, between 50 and 69 mg/dL, Starting on Wed09/19/24 at 1224, Juice or soda is preferred for alert patients (4 oz juice or 6 oz soda). Use glucose gel for patients with fluid restriction. See Hypoglycemia Management guideline. Each 37.5 gram tube of glucose 40 % = 15 grams of glucose. Or glucose (GLUTOSE 15) 40 % oral gel 75 gJump to med 75 g (2 Tube), Oral, Every 15 min PRN, low blood sugar, less than 50 mg/dL, Starting on Wed09/19/24 at 1224, Juice or soda is preferred for alert patients (8 oz juice or 12 oz soda). Use glucose gel for patients with fluid restriction. See Hypoglycemia Management guideline. Each 37.5 gram tube of glucose 40 % = 15 grams of glucose. Or dextrose 50 % solution 12.5 gJump to med 12.5 g, Intravenous, Every 15 min PRN, low blood sugar, between 50 and 69 mg/dL, Starting on Wed09/19/24 at 1224, For patient with IV access who is NPO or unable to swallow. See Hypoglycemia Management guideline. Or dextrose 50 % solution 25 gJump to med 25 g, Intravenous, Every 15 min PRN, low blood sugar, less than 50 mg/dL, Starting on Wed09/19/24 at 1224, For patient with IV access who is NPO or unable to swallow. See Hypoglycemia Management guideline. Or glucagon (GLUCAGEN) injection 1 mgJump to med 1 mg, Intramuscular, Daily PRN, low blood sugar, for Blood Glucose LESS than 70 mg/dL and NPO and no IV access, Starting on Wed09/19/24 at 1224, Glucagon may be repeated x 1 (for a total of 2 doses per hypoglycemic event) if patient remains hypoglycemic after first dose. Do not use with hepatic disease or alcohol intoxication. See Hypoglycemia Management guideline. Reconstitute vial with 1 mL sterile water for injection. documented in this encounter Additional Health Concerns Infection Onset Date Last Indicated Resolved Time R/O Respiratory Disease 09/08/2024 09/08/202408/22 7:29 AM EDT R/O TB Comment:Airborne Precautions with negative pressure room required. At least three (3) sputum specimens should be collected 8-24 hours apart with at least one being collected tobacco sweeper. At least one specimen should also be sent for Nucleic Acid Amplification (JEFF) - i.e. PCR testing. Isolation may not be discontinued without approval from ID and/or Pulmonary. If the patient is discharged on more than ONE anti-tuberculosis medication, a TB discharge plan must be completed in consultation with [facility] prior to discharge. 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
--- OUTSIDE RECORDS SUMMARY | 2024-09-22 15:50 | XMS_ITS ---
Author Name [facility] Organization Unknown Results Test Name/Text Value Interpretation Date Range Source POC Glucose 132mg/dL Above high normal [id number] 65 - 99 [facility] POC Glucose 101mg/dL Above high normal 715234591057 65 - 99 [facility] Magnesium SerPl-mCnc 2.5mg/dL Normal [id number] 1.6 - 2.7 H[facility]CT Creat SerPl-mCnc 0.7mg/dL Normal 770160954915 0.5 - 1.3 HHCCT BUN SerPl-mCnc 25mg/dL Above high normal 274326232184 8 - 21 H[facility]CT Calcium SerPl-mCnc 7.4mg/dL Below low normal 87811989693 1 8.7 - 10.5 H[facility]CT Potassium SerPl-sCnc 4mmol/L Normal [id number] 3.4 - 5.3 H[facility] Anion Gap Bld-sCnc 8 Normal [id number] 7 - 17 [facility] BUN/Creat SerPl 36Ratio Above high normal 241292195818 10 - 25 [facility]CT Chloride SerPl-sCnc 119mmol/L Above high normal [id number] 98 - 107 [facility] Glucose SerPl-mCnc 85mg/dL Normal [id number] 65 - 99 H[facility]CT CO2 SerPl-sCnc 19mmol/L Below low normal [id number] 22 - 33 HHCCT GFR/BSA.pred SerPlBld TRN-JHW-LbZCjw 90 Normal [id number] 59 - HHCCT Sodium SerPl-sCnc 146mmol/L Above high normal 749849335784 1 36 - 145 H[facility]CT Phosphate SerPl-mCnc 2.4mg/dL Below low normal [id number] 2.7 - 4.5 HHCCT LMWH PPP Basting Marker-aCnc 0.33IU/mL Normal 388358299070 HHCCT Anticoagulant IV HEPARIN, UNFRACTIONATED Normal 000614100908 HHCCT POC Glucose 84mg/dL Normal 851620028345 65 - 99 HHCCT nRBC/100 WBC Bld Auto-Rto 0.2/100WBC Above high normal 582671784879 0 - 0.1 HHCCT nRBC num Bld Auto 0.02Thou/uL Normal [id number] 0 - 0.0 2 HHCCT Hct VFr Bld Auto 25.8% Below low normal 060249710932 39 - 54 HHCCT MCHC RBC Auto-mCnc 31.8g/dL Normal [id number] 30 - 36 HHCCT RBC num Bld Auto 2.44Mil/uL Below low normal [id number] 4. 5 - 6.2 HHCCT Hgb Bld-mCnc 8.2g/dL Below low normal 085745135931 13 - 17 .7 HHCCT RDW RBC Auto-Rto 23.2% Above high normal [id number] 11.5 - 14.5 HHCCT Platelet num Bld Auto 216Thou/uL Normal [id number] 150 - 450 HHCCT MCV RBC Auto 106fL Above high normal 274808590928 80 - 1 00 HHCCT MCH RBC Qn Auto 33.6pg Above high normal 798382537284 27 - 31 HHCCT WBC num Bld Auto 10.4Thou/uL Normal [id number] 4 - 11 HHCCT PMV Bld Auto 12.6fL Above high normal [id number] 7.5 - 12.5 HHCCT POC Glucose 85mg/dL Normal [id number] 65 - 99 HHCCT POC Glucose 103mg/dL Above high normal 650638456474 65 - 99 HHCCT Sodium SerPl-sCnc 146mmol/L Above high normal 021478850883 1 36 - 145 HHCCT POC Glucose 118mg/dL Above high normal 857515329015 65 - 99 HHCCT LMWH PPP Basting Marker-aCnc 0.36IU/mL Normal [id number] HHCCT Anticoagulant IV HEPARIN, UNFRACTIONATED Normal 693810652264 HHCCT POC Glucose 126mg/dL Above high normal 389976457598 65 - 99 HHCCT Chloride SerPl-sCnc 118mmol/L Above high normal 98 - 107 HHCCT GFR/BSA.pred SerPlBld RYM-UOZ-WsEUlw 90 Normal 59 - HHCCT Potassium SerPl-sCnc 3.6mmol/L Normal 3.4 - 5.3 HHCCT Glucose SerPl-mCnc 102mg/dL Above high normal 65 - 99 HHCCT BUN SerPl-mCnc 36mg/dL Above high normal 8 - 21 HHCCT Creat SerPl-mCnc 0.8mg/dL Normal 0.5 - 1.3 HHCCT CO2 SerPl-sCnc 21mmol/L Below low normal 22 - 33 HHCCT BUN/Creat SerPl 45Ratio Above high normal 10 - 25 HHCCT Anion Gap Bld-sCnc 7 Normal 7 - 17 HHCCT Calcium SerPl-mCnc 7.3mg/dL Below low normal 7 8.7 - 10.5 HHCCT Sodium SerPl-sCnc 146mmol/L Above high normal 1 36 - 145 HHCCT Magnesium SerPl-mCnc 2.7mg/dL Normal 1.6 - 2.7 HHCCT Phosphate SerPl-mCnc 2.8mg/dL Normal 2.7 - 4.5 HHCCT LMWH PPP Basting Marker-aCnc 0.36IU/mL Normal [id number] HHCCT Anticoagulant IV HEPARIN, UNFRACTIONATED Normal [id number] HHCCT MCHC RBC Auto-mCnc 32.3g/dL Normal 30 - 36 HHCCT Platelet num Bld Auto 223Thou/uL Normal 150 - 450 HHCCT RBC num Bld Auto 2.41Mil/uL Below low normal 4. 5 - 6.2 HHCCT WBC num Bld Auto 10.1Thou/uL Normal 4 - 11 HHCCT Hct VFr Bld Auto 25.1% Below low normal 39 - 54 HHCCT MCV RBC Auto 104fL Above high normal [id number] 80 - 1 00 HHCCT nRBC num Bld Auto 0.03Thou/uL Above high normal [id number] 0 - 0.02 HHCCT nRBC/100 WBC Bld Auto-Rto 0.3/100WBC Above high normal 719992255761 0 - 0.1 HHCCT RDW RBC Auto-Rto 22.9% Above high normal [id number] 11.5 - 14.5 HHCCT PMV Bld Auto 12.6fL Above high normal [id number] 7.5 - 12.5 HHCCT Hgb Bld-mCnc 8.1g/dL Below low normal [id number] 13 - 17 .7 HHCCT MCH RBC Qn Auto 33.6pg Above high normal [id number] 27 - 31 HHCCT POC Glucose 124mg/dL Above high normal 757429858403 65 - 99 HHCCT RBC num Bld Auto 2.45Mil/uL Below low normal 648596995544 4. 5 - 6.2 HHCCT Platelet num Bld Auto 256Thou/uL Normal [id number] 150 - 450 HHCCT MCHC RBC Auto-mCnc 32.7g/dL Normal [id number] 30 - 36 HHCCT MCH RBC Qn Auto 33.9pg Above high normal [id number] 27 - 31 HHCCT Hgb Bld-mCnc 8.3g/dL Below low normal 813382275423 13 - 17 .7 HHCCT Hct VFr Bld Auto 25.4% Below low normal [id number] 39 - 54 HHCCT WBC num Bld Auto 10.5Thou/uL Normal [id number] 4 - 11 HHCCT MCV RBC Auto 104fL Above high normal 149832340606 80 - 1 00 HHCCT nRBC/100 WBC Bld Auto-Rto 0.3/100WBC Above high normal [id number] 0 - 0.1 HHCCT nRBC num Bld Auto 0.03Thou/uL Above high normal [id number] 0 - 0.02 HHCCT PMV Bld Auto 12.5fL Normal [id number] 7.5 - 12.5 HHCCT Magnesium SerPl-mCnc 2.7mg/dL Normal [id number] 1.6 - 2.7 HHCCT Potassium SerPl-sCnc 4.1mmol/L Normal [id number] 3.4 - 5.3 HHCCT Calcium SerPl-mCnc 7.5mg/dL Below low normal [id number] 6 8.7 - 10.5 HHCCT BUN SerPl-mCnc 40mg/dL Above high normal [id number] 8 - 21 HHCCT Glucose SerPl-mCnc 102mg/dL Above high normal 722815107729 65 - 99 HHCCT Creat SerPl-mCnc 0.8mg/dL Normal [id number] 0.5 - 1.3 HHCCT Chloride SerPl-sCnc 120mmol/L Above high normal 234730864130 98 - 107 HHCCT BUN/Creat SerPl 50Ratio Above high normal [id number] 10 - 25 HHCCT Anion Gap Bld-sCnc 9 Normal [id number] 7 - 17 HHCCT GFR/BSA.pred SerPlBld LCH-LVL-FpRQzw 90 Normal [id number] 59 - HHCCT CO2 SerPl-sCnc 20mmol/L Below low normal [id number] 22 - 33 HHCCT Sodium SerPl-sCnc 149mmol/L Above high normal 945010107977 1 36 - 145 HHCCT Phosphate SerPl-mCnc 3.1mg/dL Normal [id number] 2.7 - 4.5 HHCCT LMWH PPP Basting Marker-aCnc 0.26IU/mL Normal [id number] HHCCT Anticoagulant IV HEPARIN, UNFRACTIONATED Normal 585184542369 HHCCT POC Glucose 111mg/dL Above high normal 110482948432 65 - 99 HHCCT POC Glucose 111mg/dL Above high normal 263031638195 65 - 99 HHCCT POC Glucose 122mg/dL Above high normal [id number] 65 - 99 HHCCT Sodium SerPl-sCnc 145mmol/L Normal [id number] 136 - 145 HHCCT POC Glucose 142mg/dL Above high normal 627973711430 65 - 99 HHCCT POC Glucose 137mg/dL Above high normal 751871009265 65 - 99 HHCCT LMWH PPP Basting Marker-aCnc 0.33IU/mL Normal [id number] HHCCT Anticoagulant IV HEPARIN, UNFRACTIONATED Normal [id number] HHCCT POC Glucose 140mg/dL Above high normal 640184578150 65 - 99 HHCCT POC Glucose 115mg/dL Above high normal [id number] 65 - 99 HHCCT Anion Gap Bld-sCnc 7 Normal [id number] 7 - 17 HHCCT CO2 SerPl-sCnc 22mmol/L Normal [id number] 22 - 33 HH CCT Calcium SerPl-mCnc 7.5mg/dL Below low normal 47409787354 6 8.7 - 10.5 HHCCT Glucose SerPl-mCnc 138mg/dL Above high normal [id number] 65 - 99 HHCCT BUN SerPl-mCnc 51mg/dL Above high normal [id number] 8 - 21 HHCCT Chloride SerPl-sCnc 118mmol/L Above high normal 278395295962 98 - 107 HHCCT Creat SerPl-mCnc 0.9mg/dL Normal [id number] 0.5 - 1.3 HHCCT Potassium SerPl-sCnc 3.9mmol/L Normal [id number] 3.4 - 5.3 HHCCT GFR/BSA.pred SerPlBld DLQ-QNA-FaLVpk 90 Normal [id number] 59 - HHCCT BUN/Creat SerPl 57Ratio Above high normal [id number] 10 - 25 HHCCT Sodium SerPl-sCnc 147mmol/L Above high normal [id number] 1 36 - 145 HHCCT Phosphate SerPl-mCnc 3.4mg/dL Normal [id number] 2.7 - 4.5 HHCCT Magnesium SerPl-mCnc 2.6mg/dL Normal [id number] 1.6 - 2.7 HHCCT PMV Bld Auto 12.3fL Normal [id number] 7.5 - 12.5 HHCCT Platelet num Bld Auto 269Thou/uL Normal [id number] 150 - 450 HHCCT WBC num Bld Auto 12.6Thou/uL Above high normal [id number] 4 - 11 HHCCT MCH RBC Qn Auto 32.7pg Above high normal [id number] 27 - 31 HHCCT nRBC num Bld Auto 0.04Thou/uL Above high normal [id number] 0 - 0.02 HHCCT nRBC/100 WBC Bld Auto-Rto 0.3/100WBC Above high normal [id number] 0 - 0.1 HHCCT MCV RBC Auto 103fL Above high normal [id number] 80 - 1 00 HHCCT RBC num Bld Auto 2.48Mil/uL Below low normal [id number] 4. 5 - 6.2 HHCCT MCHC RBC Auto-mCnc 31.6g/dL Normal [id number] 30 - 36 HHCCT Hct VFr Bld Auto 25.6% Below low normal 531297173573 39 - 54 HHCCT Hgb Bld-mCnc 8.1g/dL Below low normal [id number] 13 - 17 .7 HHCCT RDW RBC Auto-Rto 20.9% Above high normal [id number] 11.5 - 14.5 HHCCT LMWH PPP Basting Marker-aCnc 0.37IU/mL Normal 480273172069 HHCCT Anticoagulant IV HEPARIN, UNFRACTIONATED Normal [id number] HHCCT POC Glucose 112mg/dL Above high normal 504394017854 HHCCT POC Glucose 139mg/dL Above high normal 024355450337 HHCCT Sodium SerPl-sCnc 149mmol/L Above high normal 014378694523 1 36 - 145 HHCCT LMWH PPP Basting Marker-aCnc 0.29IU/mL Normal [id number] HHCCT Anticoagulant IV HEPARIN, UNFRACTIONATED Normal [id number] HHCCT POC Glucose 145mg/dL Above high normal 569842811984 - HHCCT LMWH PPP Basting Marker-aCnc 0.36IU/mL Normal [id number] HHCCT Anticoagulant HEPARIN, LOW MOLECULAR WEIGHT Normal [id number] HHCCT POC Glucose 110mg/dL Above high normal 342955252734 HHCCT POC Glucose 123mg/dL Above high normal 457017736486 HHCCT POC Glucose 109mg/dL Above high normal 146736242965 HHCCT Magnesium SerPl-mCnc 2.5mg/dL Normal [id number] 1.6 - 2.7 HHCCT Phosphate SerPl-mCnc 3.7mg/dL Normal [id number] 2.7 - 4.5 HHCCT Sodium SerPl-sCnc 145mmol/L Normal [id number] 136 - 145 HHCCT Calcium SerPl-mCnc 7.6mg/dL Below low normal [id number] 7 8.7 - 10.5 HHCCT Glucose SerPl-mCnc 107mg/dL Above high normal [id number] 65 - 99 HHCCT Creat SerPl-mCnc 0.8mg/dL Normal [id number] 0.5 - 1.3 HHCCT GFR/BSA.pred SerPlBld LWR-CDY-IwZWgp 90 Normal [id number] 59 - HHCCT Chloride SerPl-sCnc 117mmol/L Above high normal [id number] 98 - 107 HHCCT CO2 SerPl-sCnc 21mmol/L Below low normal [id number] 22 - 33 HHCCT BUN SerPl-mCnc 50mg/dL Above high normal [id number] 8 - 21 HHCCT Potassium SerPl-sCnc 3.9mmol/L Normal [id number] 3.4 - 5.3 HHCCT BUN/Creat SerPl 63Ratio Above high normal [id number] 10 - 25 HHCCT Anion Gap Bld-sCnc 7 Normal [id number] 7 - 17 HHCCT LMWH PPP Basting Marker-aCnc 0.18IU/mL Normal [id number] HHCCT Anticoagulant HEPARIN, LOW MOLECULAR WEIGHT Normal [id number] HHCCT RDW RBC Auto-Rto 17.2% Above high normal [id number] 11.5 - 14.5 HHCCT WBC num Bld Auto 9.9Thou/uL Normal [id number] 4 - 11 HHCCT PMV Bld Auto 12.9fL Above high normal [id number] 7.5 - 12.5 HHCCT MCH RBC Qn Auto 31.9pg Above high normal [id number] 27 - 31 HHCCT nRBC/100 WBC Bld Auto-Rto 0.3/100WBC Above high normal 982980961554 0 - 0.1 HHCCT Hgb Bld-mCnc 7.5g/dL Below low normal 236727990894 13 - 17 .7 HHCCT nRBC num Bld Auto 0.03Thou/uL Above high normal 855930738107 0 - 0.02 HHCCT Platelet num Bld Auto 254Thou/uL Normal [id number] 150 - 450 HHCCT Hct VFr Bld Auto 23.4% Below low normal 669640282980 39 - 54 HHCCT MCHC RBC Auto-mCnc 32.1g/dL Normal [id number] 30 - 36 HHCCT RBC num Bld Auto 2.35Mil/uL Below low normal [id number] 4. 5 - 6.2 HHCCT MCV RBC Auto 100fL Normal [id number] 80 - 100 HHCC T POC Glucose 122mg/dL Above high normal [id number] 65 - 99 HHCCT POC Glucose 110mg/dL Above high normal 004771218688 65 - 99 HHCCT POC Glucose 150mg/dL Above high normal 561667428418 65 - [address] VFr BldA Calc 11mL/dL Below low normal [id number] 40 17.6 - 24.3 HHCCT MetHgb MFr Bld 0.8% Normal [id number] 0.4 - 1.5 HH CCT Hgb Bld-mCnc 8g/dL Below low normal 212288830262 13 - 17 .7 HHCCT Total CO2, Arterial 24mmol/L Normal [id number] 22 - 28 HHCCT pH, Arterial 7.5 Above high normal 366638088244 7.3 5 - 7.45 HHCCT COHgb MFr Bld 1.4% Normal [id number] 0 - [address] SaO2 % BldA 98.5% Above high normal 103620343608 94 - 97 HHCCT pO2, Arterial 107mmHG Above high normal 765625271962 75 - 95 HHCCT pCO2, Arterial 30mmHG Below low normal [id number] 32 - 45 HHCCT Base excess BldA Calc-sCnc 0.2mmol/L Normal 425872038222 HHCCT P/F Ratio 268 Normal [id number] HHCCT Respiratory Information VENT 40% Normal 882733017380 HHCCT POC Glucose 153mg/dL Above high normal 981353422663 65 - 99 HHCCT POC Glucose 162mg/dL Above high normal 015685634449 65 - 99 HHCCT Phosphate SerPl-mCnc 2.7mg/dL Normal [id number] 2.7 - 4.5 HHCCT Magnesium SerPl-mCnc 2.7mg/dL Normal [id number] 1.6 - 2.7 HHCCT Calcium SerPl-mCnc 7.7mg/dL Below low normal 00514179617 5 8.7 - 10.5 HHCCT Sodium SerPl-sCnc 145mmol/L Normal [id number] 136 - 145 HHCCT Creat SerPl-mCnc 1mg/dL Normal [id number] 0.5 - 1.3 HHCCT CO2 SerPl-sCnc 23mmol/L Normal [id number] 22 - 33 HH CCT GFR/BSA.pred SerPlBld TKY-YWA-AzMHbm 85 Normal [id number] 59 - HHCCT BUN/Creat SerPl 55Ratio Above high normal [id number] 10 - 25 HHCCT BUN SerPl-mCnc 55mg/dL Above high normal [id number] 8 - 21 HHCCT Potassium SerPl-sCnc 4.2mmol/L Normal [id number] 3.4 - 5.3 HHCCT Glucose SerPl-mCnc 149mg/dL Above high normal 553332437709 65 - 99 HHCCT Chloride SerPl-sCnc 116mmol/L Above high normal 024093714423 98 - 107 HHCCT Anion Gap Bld-sCnc 6 Below low normal 008766565828 7 - 17 HHCCT LMWH PPP Basting Marker-aCnc 0.32IU/mL Normal [id number] HHCCT Anticoagulant HEPARIN, LOW MOLECULAR WEIGHT Normal [id number] HHCCT MCH RBC Qn Auto 31.9pg Above high normal 434916150341 27 - 31 HHCCT MCHC RBC Auto-mCnc 32.9g/dL Normal [id number] 30 - 36 HHCCT nRBC num Bld Auto 0.11Thou/uL Above high normal 876635797455 0 - 0.02 HHCCT RDW RBC Auto-Rto 14.6% Above high normal 836337163071 11.5 - 14.5 HHCCT Platelet num Bld Auto 240Thou/uL Normal [id number] 150 - 450 HHCCT nRBC/100 WBC Bld Auto-Rto 0.9/100WBC Above high normal 059490135761 0 - 0.1 HHCCT PMV Bld Auto 13fL Above high normal 184432805191 7.5 - 12.5 HHCCT Hgb Bld-mCnc 7.4g/dL Below low normal 256657721326 13 - 17 .7 HHCCT WBC num Bld Auto 11.6Thou/uL Above high normal 012455378465 4 - 11 HHCCT MCV RBC Auto 97fL Normal [id number] 80 - 100 HHCC T Hct VFr Bld Auto 22.5% Below low normal [id number] 39 - 54 HHCCT RBC num Bld Auto 2.32Mil/uL Below low normal 705215045976 4. 5 - 6.2 HHCCT POC Glucose 201mg/dL Above high normal [id number] 65 - 99 HHCCT LMWH PPP Basting Marker-aCnc 0.35IU/mL Normal 734153906021 HHCCT Anticoagulant HEPARIN, LOW MOLECULAR WEIGHT Normal 484422225226 HHCCT POC Glucose 169mg/dL Above high normal 942074715196 65 - 99 HHCCT POC Glucose 182mg/dL Above high normal 612437758448 65 - 99 HHCCT Albumin SerPl-mCnc 2.3g/dL Below low normal 929507122683 3 .4 - 4.8 HHCCT Magnesium SerPl-mCnc 2.5mg/dL Normal [id number] 1.6 - 2.7 HHCCT Phosphate SerPl-mCnc 3.5mg/dL Normal [id number] 2.7 - 4.5 HHCCT CO2 SerPl-sCnc 22mmol/L Normal [id number] 22 - 33 HH CCT BUN/Creat SerPl 52Ratio Above high normal [id number] 10 - 25 HHCCT Anion Gap Bld-sCnc 9 Normal [id number] 7 - 17 HHCCT Potassium SerPl-sCnc 3.8mmol/L Normal [id number] 3.4 - 5.3 HHCCT Glucose SerPl-mCnc 153mg/dL Above high normal [id number] 65 - 99 HHCCT Chloride SerPl-sCnc 116mmol/L Above high normal 903824180935 98 - 107 HHCCT Creat SerPl-mCnc 1.1mg/dL Normal [id number] 0.5 - 1.3 HHCCT GFR/BSA.pred SerPlBld ERV-WXB-TtJCbk 75 Normal [id number] 59 - HHCCT Sodium SerPl-sCnc 147mmol/L Above high normal [id number] 1 36 - 145 HHCCT BUN SerPl-mCnc 57mg/dL Above high normal 058831611852 8 - 21 HHCCT Calcium SerPl-mCnc 7mg/dL Below low normal 92137994951 8 8.7 - 10.5 HHCCT LMWH PPP Basting Marker-aCnc 0.49IU/mL Normal [id number] HHCCT Anticoagulant IV HEPARIN, UNFRACTIONATED Normal [id number] HHCCT POC Glucose 164mg/dL Above high normal 732458577442 65 - 99 HHCCT POC Glucose 123mg/dL Above high normal 467995856312 65 - 99 HHCCT LMWH PPP Basting Marker-aCnc 0.54IU/mL Normal [id number] HHCCT Anticoagulant IV HEPARIN, UNFRACTIONATED Normal 822435132149 HHCCT POC Glucose 160mg/dL Above high normal 492498298539 65 - 99 HHCCT Magnesium SerPl-mCnc 2.7mg/dL Normal [id number] 1.6 - 2.7 HHCCT Phosphate SerPl-mCnc 4.1mg/dL Normal [id number] 2.7 - 4.5 HHCCT BUN/Creat SerPl 46Ratio Above high normal 685533164816 10 - 25 HHCCT GFR/BSA.pred SerPlBld VSP-AUI-GsGMub 56 Below low normal [id number] 59 - HHCCT Glucose SerPl-mCnc 166mg/dL Above high normal [id number] 65 - 99 HHCCT BUN SerPl-mCnc 65mg/dL Above high normal 917800155452 8 - 21 HHCCT CO2 SerPl-sCnc 25mmol/L Normal [id number] 22 - 33 HH CCT Sodium SerPl-sCnc 142mmol/L Normal [id number] 136 - 145 HHCCT Creat SerPl-mCnc 1.4mg/dL Above high normal 510209749731 0. 5 - 1.3 HHCCT Chloride SerPl-sCnc 110mmol/L Above high normal [id number] 98 - 107 HHCCT Anion Gap Bld-sCnc 7 Normal [id number] 7 - 17 HHCCT Potassium SerPl-sCnc 4.6mmol/L Normal [id number] 3.4 - 5.3 HHCCT Calcium SerPl-mCnc 7.6mg/dL Below low normal [id number] 9 8.7 - 10.5 HHCCT LMWH PPP Basting Marker-aCnc 0.69IU/mL Normal [id number] HHCCT Anticoagulant IV HEPARIN, UNFRACTIONATED Normal 059384402282 HHCCT RDW RBC Auto-Rto 13.4% Normal [id number] 11.5 - 14.5 HHCCT RBC num Bld Auto 2.34Mil/uL Below low normal [id number] 4. 5 - 6.2 HHCCT Platelet num Bld Auto 221Thou/uL Normal [id number] 150 - 450 HHCCT nRBC/100 WBC Bld Auto-Rto 0.8/100WBC Above high normal 719361430575 0 - 0.1 HHCCT MCHC RBC Auto-mCnc 32.3g/dL Normal [id number] 30 - 36 HHCCT nRBC num Bld Auto 0.1Thou/uL Above high normal 875801697766 0 - 0.02 HHCCT WBC num Bld Auto 11.9Thou/uL Above high normal 386815875751 4 - 11 HHCCT Hct VFr Bld Auto 22.6% Below low normal 793730322828 39 - 54 HHCCT MCV RBC Auto 97fL Normal [id number] 80 - 100 HHCC T PMV Bld Auto 13.3fL Above high normal [id number] 7.5 - 12.5 HHCCT Hgb Bld-mCnc 7.3g/dL Below low normal 483133216281 13 - 17 .7 HHCCT Immature Platelet Fraction 11.1% Above high normal 742212711307 1.2 - 8.6 HHCCT MCH RBC Qn Auto 31.2pg Above high normal 642592367866 27 - 31 HHCCT POC Glucose 169mg/dL Above high normal 568904343977 65 - 99 HHCCT POC Glucose 161mg/dL Above high normal 700964310705 65 - 99 HHCCT Platelet num Bld Auto 238Thou/uL Normal [id number] 150 - 450 HHCCT MCH RBC Qn Auto 32pg Above high normal 142694474164 27 - 31 HHCCT RDW RBC Auto-Rto 13.2% Normal [id number] 11.5 - 14.5 HHCCT RBC num Bld Auto 2.53Mil/uL Below low normal 893653813175 4. 5 - 6.2 HHCCT nRBC num Bld Auto 0.07Thou/uL Above high normal 139472086296 0 - 0.02 HHCCT Hct VFr Bld Auto 24.4% Below low normal 233745314883 39 - 54 HHCCT MCV RBC Auto 96fL Normal 876634329943 80 - 100 HHCC T nRBC/100 WBC Bld Auto-Rto 0.6/100WBC Above high normal 023764758135 0 - 0.1 HHCCT Hgb Bld-mCnc 8.1g/dL Below low normal 147666846386 13 - 17 .7 HHCCT WBC num Bld Auto 11Thou/uL Normal [id number] 4 - 11 HHCCT MCHC RBC Auto-mCnc 33.2g/dL Normal [id number] 30 - 36 HHCCT PMV Bld Auto 13fL Above high normal 546643993074 7.5 - 12.5 HHCCT Prothrombin time 14.1seconds Above high normal 730607968726 10 - 13.5 HHCCT INR PPP 1.2 Normal 561250984089 HHCCT Anticoagulant IV HEPARIN, UNFRACTIONATED Normal 896140602659 HHCCT aPTT PPP 24seconds Below low normal 322545192657 25 - 36 HHCCT Anticoagulant IV HEPARIN, UNFRACTIONATED Normal 898796143367 HHCCT nRBC/100 WBC Bld Auto-Rto Normal [id number] 0 - 0.1 HHCCT nRBC num Bld Auto Normal [id number] 0 - 0.02 HHCCT MCH RBC Qn Auto Normal [id number] 27 - 31 H HCCT MCHC RBC Auto-mCnc Normal [id number] 30 - 36 HHCCT Platelet num Bld Auto Normal [id number] 150 - 450 HHCCT PMV Bld Auto Normal [id number] 7.5 - 12.5 HHCCT RDW RBC Auto-Rto Normal [id number] 11.5 - 14.5 HHCCT Hgb Bld-mCnc Normal [id number] 13 - 17.7 HHCC T MCV RBC Auto Normal [id number] 80 - 100 HHCC T Hct VFr Bld Auto Normal [id number] 39 - 54 HHCCT WBC num Bld Auto Normal [id number] 4 - 11 HHCCT Immature Platelet Fraction Normal [id number] 1.2 - 8.6 HHCCT Comment Abnormal [id number] - HHCCT RBC num Bld Auto Normal [id number] 4.5 - 6.2 HHCCT Sodium SerPl-sCnc 147mmol/L Above high normal 360142293203 1 36 - 145 HHCCT POC Glucose 176mg/dL Above high normal 253457828272 65 - 99 HHCCT POC Glucose 132mg/dL Above high normal 054804125344 65 - 99 HHCCT POC Glucose 134mg/dL Above high normal 078507839108 65 - 99 HHCCT POC Glucose 172mg/dL Above high normal [id number] 65 - 99 HHCCT POC Glucose 166mg/dL Above high normal 830840409172 65 - 99 HHCCT Magnesium SerPl-mCnc 2.5mg/dL Normal 782270290823 1.6 - 2.7 HHCCT Phosphate SerPl-mCnc 3.6mg/dL Normal [id number] 2.7 - 4.5 HHCCT Anion Gap Bld-sCnc 7 Normal [id number] 7 - 17 HHCCT BUN SerPl-mCnc 55mg/dL Above high normal 435390998676 8 - 21 HHCCT Potassium SerPl-sCnc 4.9mmol/L Normal [id number] 3.4 - 5.3 HHCCT Creat SerPl-mCnc 1.1mg/dL Normal [id number] 0.5 - 1.3 HHCCT BUN/Creat SerPl 50Ratio Above high normal [id number] 10 - 25 [facility] Chloride SerPl-sCnc 111mmol/L Above high normal 129259674737 98 - 107 [facility] Glucose SerPl-mCnc 156mg/dL Above high normal [id number] 65 - 99 [facility] CO2 SerPl-sCnc 28mmol/L Normal [id number] 22 - 33 HH CCT Sodium SerPl-sCnc 146mmol/L Above high normal 143896052588 1 36 - 145 [facility] GFR/BSA.pred SerPlBld VHK-ZCP-UmKNly 75 Normal [id number] 59 - HHCCT Calcium SerPl-mCnc 8mg/dL Below low normal [id number] 5 8.7 - 10.5 [facility] nRBC num Bld Auto 0.02Thou/uL Normal [id number] 0 - 0.0 2 [facility] nRBC/100 WBC Bld Auto-Rto 0.2/100WBC Above high normal 209299243759 0 - 0.1 [facility] WBC num Bld Auto 12.8Thou/uL Above high normal 388028357396 4 - 11 [facility] RBC num Bld Auto 2.51Mil/uL Below low normal 739374070719 4. 5 - 6.2 [facility] RDW RBC Auto-Rto 12.3% Normal [id number] 11.5 - 14.5 [facility]CT Hgb Bld-mCnc 7.9g/dL Below low normal 430916164053 13 - 17 .7 [facility] Immature Platelet Fraction 14.1% Above high normal [id number] 1.2 - 8.6 [facility] Hct VFr Bld Auto 24.1% Below low normal 059625602069 39 - 54 [facility] MCV RBC Auto 96fL Normal [id number] 80 - 100 HHCC T MCH RBC Qn Auto 31.5pg Above high normal 572549705845 27 - 31 [facility] PMV Bld Auto 13.4fL Above high normal 734093597073 7.5 - 12.5 [facility] Platelet num Bld Auto 190Thou/uL Normal [id number] 150 - 450 [facility]CT MCHC RBC Auto-mCnc 32.8g/dL Normal [id number] 30 - 36 [facility] POC Glucose 144mg/dL Above high normal 820253834360 65 - 99 [facility] POC Glucose 154mg/dL Above high normal 411845008142 65 - 99 [facility] POC Glucose 168mg/dL Above high normal 076272558119 65 - 99 [facility]CT Magnesium SerPl-mCnc 2.6mg/dL Normal [id number] 1.6 - 2.7 [facility] BUN/Creat SerPl 49Ratio Above high normal 131529445396 10 - 25 [facility] Anion Gap Bld-sCnc 5 Below low normal 653264393877 7 - 17 [facility]CT BUN SerPl-mCnc 54mg/dL Above high normal 482150181628 8 - 21 [facility]CT Calcium SerPl-mCnc 8mg/dL Below low normal 07768037750 6 8.7 - 10.5 [facility]CT Chloride SerPl-sCnc 109mmol/L Above high normal 499912966502 98 - 107 [facility]CT Creat SerPl-mCnc 1.1mg/dL Normal [id number] 0.5 - 1.3 [facility]CT CO2 SerPl-sCnc 31mmol/L Normal [id number] 22 - 33 HH CCT Sodium SerPl-sCnc 145mmol/L Normal [id number] 136 - 145 H[facility]CT Glucose SerPl-mCnc 136mg/dL Above high normal 284348238612 65 - 99 H[facility]CT Potassium SerPl-sCnc 5.4mmol/L Above high normal 38898662711 6 3.4 - 5.3 H[facility]CT GFR/BSA.pred SerPlBld YRM-FGO-IpRNrb 75 Normal [id number] 59 - HHCCT Phosphate SerPl-mCnc 4.5mg/dL Normal [id number] 2.7 - 4.5 [facility] POC Glucose 151mg/dL Above high normal [id number] 65 - 99 [facility] Base excess BldA Calc-sCnc 7.6mmol/L Normal [id number] HHCCT SaO2 % BldV from pO2 62.9% Normal [id number] HHCCT MetHgb MFr Bld 0.8% Normal [id number] 0.4 - 1.[address] VFr BldV Calc 3.3mL/dL Below low normal [id number] 54 7.2 - 17.2 HHCCT pH BldV 7.43 Normal 754747147970 7.33 - 7.43 HHCCT pCO2 BldV 50mmHG Normal 779088932568 35 - 50 [facility]CT Hgb Bld-mCnc 5.3g/dL Below low normal 523569044779 13 - 17 .7 HHCCT pO2 BldV 34mmHG Normal [id number] 0 - 60 H[facility]CT COHgb MFr Bld 1.3% Normal [id number] 0 - [address] CO2 BldV-sCnc 34mmol/L Above high normal 154160428422 23 - 29 [facility]CT Respiratory Information VENT 40% Normal 475443801345 HHCCT POC Glucose 149mg/dL Above high normal 993225178927 65 - 99 H[facility]CT POC Glucose 148mg/dL Above high normal 246825067040 65 - 99 HHCCT pro BNP, N-terminal 486pg/mL Above high normal 991615126298 - 125 H[facility]CT Prot SerPl-mCnc 7.1g/dL Normal [id number] 6.3 - 8.3 H [facility] [employer] SerPl-mCnc 1.2mg/dL Above high normal [id number] 0 - 0.2 HHCCT ALP SerPl-cCnc 58U/L Normal 853537875011 45 - 128 HH CCT Albumin/Glob SerPl 0.4Ratio Below low normal 825803679466 1 - 3 HHCCT Albumin SerPl-mCnc 2.2g/dL Below low normal 883535544873 3 .4 - 4.8 HHCCT ALT SerPl-cCnc 83U/L Above high normal 410240248822 10 - 55 HHCCT AST SerPl-cCnc 41U/L Normal [id number] 10 - 55 HH CCT Bilirub SerPl-mCnc 1.8mg/dL Above high normal 271858613825 0.2 - 1 HHCCT Globulin Ser Calc-mCnc 4.9g/dL Above high normal 088056375318 1.5 - 3.9 HHCCT Potassium SerPl-sCnc 5.3mmol/L Normal [id number] 3.4 - 5.3 HHCCT BUN/Creat SerPl 63Ratio Above high normal [id number] 10 - 25 HHCCT Anion Gap Bld-sCnc 4 Below low normal 640434959590 7 - 17 HHCCT Calcium SerPl-mCnc 8mg/dL Below low normal 59546804081 9 8.7 - 10.5 HHCCT Sodium SerPl-sCnc 144mmol/L Normal 560664220252 136 - 145 HHCCT BUN SerPl-mCnc 50mg/dL Above high normal 984241909157 8 - 21 HHCCT Creat SerPl-mCnc 0.8mg/dL Normal [id number] 0.5 - 1.3 HHCCT Glucose SerPl-mCnc 153mg/dL Above high normal 677913063047 65 - 99 HHCCT CO2 SerPl-sCnc 32mmol/L Normal [id number] 22 - 33 HH CCT Chloride SerPl-sCnc 108mmol/L Above high normal 966024028900 98 - 107 HHCCT GFR/BSA.pred SerPlBld UMW-ZBB-TaGEcj 90 Normal [id number] 59 - HHCCT Phosphate SerPl-mCnc 4.2mg/dL Normal [id number] 2.7 - 4.5 HHCCT Magnesium SerPl-mCnc 2.5mg/dL Normal [id number] 1.6 - 2.7 HHCCT RDW RBC Auto-Rto 12.2% Normal [id number] 11.5 - 14.5 HHCCT MCH RBC Qn Auto 31.2pg Above high normal 127372166318 27 - 31 H[facility]CT Platelet num Bld Auto 131Thou/uL Below low normal 164875002811 150 - 450 HHCCT Hgb Bld-mCnc 7.9g/dL Below low normal 211674906084 13 - 17 .7 HHCCT Immature Platelet Fraction 16.5% Above high normal 124398078966 1.2 - 8.6 HHCCT PMV Bld Auto 13.3fL Above high normal 087582489921 7.5 - 12.5 HHCCT MCV RBC Auto 94fL Normal 118048859254 80 - 100 HHCC T WBC num Bld Auto 10Thou/uL Normal 808971018542 4 - 11 HHCCT RBC num Bld Auto 2.53Mil/uL Below low normal 262808200047 4. 5 - 6.2 HHCCT MCHC RBC Auto-mCnc 33.2g/dL Normal [id number] 30 - 36 HHCCT Hct VFr Bld Auto 23.8% Below low normal 432199464343 39 - 54 HHCCT POC Glucose 157mg/dL Above high normal 279633731377 65 - 99 HHCCT POC Glucose 192mg/dL Above high normal 905929923125 65 - 99 HHCCT Magnesium SerPl-mCnc 2.4mg/dL Normal 755091846063 1.6 - 2.7 HHCCT BUN/Creat SerPl 49Ratio Above high normal 803569236673 10 - 25 HHCCT Chloride SerPl-sCnc 109mmol/L Above high normal 539566490479 98 - 107 HHCCT Creat SerPl-mCnc 0.9mg/dL Normal [id number] 0.5 - 1.3 HHCCT CO2 SerPl-sCnc 31mmol/L Normal [id number] 22 - 33 HH CCT Potassium SerPl-sCnc 5.2mmol/L Normal 537051510542 3.4 - 5.3 HHCCT Calcium SerPl-mCnc 7.7mg/dL Below low normal 14794107734 0 8.7 - 10.5 HHCCT GFR/BSA.pred SerPlBld YBQ-SXM-LiQArt 90 Normal 161825019562 59 - HHCCT BUN SerPl-mCnc 44mg/dL Above high normal 637090203126 8 - 21 HHCCT Anion Gap Bld-sCnc 6 Below low normal 474765850882 7 - 17 HHCCT Glucose SerPl-mCnc 116mg/dL Above high normal 114384788450 65 - 99 HHCCT Sodium SerPl-sCnc 146mmol/L Above high normal 201539275972 1 36 - 145 HHCCT Phosphate SerPl-mCnc 4mg/dL Normal [id number] 2.7 - 4.5 HHCCT POC Glucose 134mg/dL Above high normal 502836193037 65 - 99 HHCCT POC Glucose 163mg/dL Above high normal 566500124723 65 - 99 HHCCT POC Glucose 147mg/dL Above high normal 378789192413 65 - 99 HHCCT POC Glucose 148mg/dL Above high normal 911879353021 65 - 99 HHCCT Creat SerPl-mCnc 0.8mg/dL Normal [id number] 0.5 - 1.3 HHCCT BUN SerPl-mCnc 39mg/dL Above high normal 838911814927 8 - 21 HHCCT CO2 SerPl-sCnc 32mmol/L Normal [id number] 22 - 33 HH CCT Chloride SerPl-sCnc 110mmol/L Above high normal 695189761475 98 - 107 HHCCT Potassium SerPl-sCnc 5.6mmol/L Above high normal 52719324088 7 3.4 - 5.3 HHCCT Calcium SerPl-mCnc 7.8mg/dL Below low normal [id number] 7 8.7 - 10.5 HHCCT GFR/BSA.pred SerPlBld BBJ-AKB-OhWYsk 90 Normal [id number] 59 - HHCCT Sodium SerPl-sCnc 146mmol/L Above high normal 335640023879 1 36 - 145 HHCCT Glucose SerPl-mCnc 133mg/dL Above high normal 382106865474 65 - 99 HHCCT BUN/Creat SerPl 49Ratio Above high normal [id number] 10 - 25 HHCCT Anion Gap Bld-sCnc 4 Below low normal 265759285912 7 - 17 HHCCT Phosphate SerPl-mCnc 3.3mg/dL Normal [id number] 2.7 - 4.5 HHCCT Magnesium SerPl-mCnc 2.4mg/dL Normal [id number] 1.6 - 2.7 HHCCT Globulin Ser Calc-mCnc 4.9g/dL Above high normal 691719765609 1.5 - 3.9 HHCCT AST SerPl-cCnc 38U/L Normal 601356948850 10 - 55 HH CCT ALP SerPl-cCnc 59U/L Normal [id number] 45 - 128 HH CCT Bilirub Direct SerPl-mCnc 1.6mg/dL Above high normal 882682678840 0 - 0.2 HHCCT Bilirub SerPl-mCnc 2.4mg/dL Above high normal 887230329078 0.2 - 1 HHCCT Albumin SerPl-mCnc 2.3g/dL Below low normal [id number] 3 .4 - 4.8 HHCCT Prot SerPl-mCnc 7.2g/dL Normal [id number] 6.3 - 8.3 H HCCT ALT SerPl-cCnc 94U/L Above high normal [id number] 10 - 55 HHCCT Albumin/Glob SerPl 0.5Ratio Below low normal 886279429587 1 - 3 HHCCT Platelet num Bld Auto 97Thou/uL Below low normal [id number] 150 - 450 HHCCT MCHC RBC Auto-mCnc 32.4g/dL Normal [id number] 30 - 36 HHCCT PMV Bld Auto 13.4fL Above high normal [id number] 7.5 - 12.5 HHCCT Immature Platelet Fraction 15.7% Above high normal 084573967821 1.2 - 8.6 HHCCT Hgb Bld-mCnc 8.4g/dL Below low normal 121197530137 13 - 17 .7 HHCCT Hct VFr Bld Auto 25.9% Below low normal [id number] 39 - 54 HHCCT RDW RBC Auto-Rto 12.6% Normal [id number] 11.5 - 14.5 HHCCT WBC num Bld Auto 10.2Thou/uL Normal [id number] 4 - 11 HHCCT RBC num Bld Auto 2.69Mil/uL Below low normal [id number] 4. 5 - 6.2 HHCCT MCH RBC Qn Auto 31.2pg Above high normal 871592368145 27 - 31 HHCCT MCV RBC Auto 96fL Normal [id number] 80 - 100 HHCC T POC Glucose 148mg/dL Above high normal 725414746180 65 - 99 HHCCT POC Glucose 145mg/dL Above high normal 599930406868 65 - 99 HHCCT POC Glucose 140mg/dL Above high normal 587573115333 65 - 99 HHCCT Phosphate SerPl-mCnc 3.8mg/dL Normal [id number] 2.7 - 4.5 HHCCT Magnesium SerPl-mCnc 2.5mg/dL Normal [id number] 1.6 - 2.7 HHCCT Creat SerPl-mCnc 0.8mg/dL Normal [id number] 0.5 - 1.3 HHCCT Calcium SerPl-mCnc 7.9mg/dL Below low normal [id number] 1 8.7 - 10.5 HHCCT Anion Gap Bld-sCnc 5 Below low normal 151546679887 7 - 17 HHCCT Glucose SerPl-mCnc 109mg/dL Above high normal 443089538916 65 - 99 HHCCT Potassium SerPl-sCnc 4.7mmol/L Normal [id number] 3.4 - 5.3 HHCCT GFR/BSA.pred SerPlBld QJW-OZK-FiBXwj 90 Normal [id number] 59 - HHCCT BUN SerPl-mCnc 35mg/dL Above high normal [id number] 8 - 21 HHCCT BUN/Creat SerPl 44Ratio Above high normal [id number] 10 - 25 HHCCT Sodium SerPl-sCnc 144mmol/L Normal [id number] 136 - 145 HHCCT Chloride SerPl-sCnc 107mmol/L Normal [id number] 98 - 10 7 HHCCT CO2 SerPl-sCnc 32mmol/L Normal [id number] 22 - 33 HH CCT POC Glucose 135mg/dL Above high normal 603305122836 65 - 99 HHCCT POC Glucose 109mg/dL Above high normal 272169381542 65 - 99 HHCCT POC Glucose 128mg/dL Above high normal 814101003607 65 - 99 HHCCT pro BNP, N-terminal 2219pg/mL Above high normal 752678822107 - 125 HHCCT Magnesium SerPl-mCnc 2.7mg/dL Normal [id number] 1.6 - 2.7 HHCCT Phosphate SerPl-mCnc 3.2mg/dL Normal [id number] 2.7 - 4.5 HHCCT Calcium SerPl-mCnc 7.2mg/dL Below low normal [id number] 5 8.7 - 10.5 HHCCT BUN SerPl-mCnc 35mg/dL Above high normal [id number] 8 - 21 HHCCT BUN/Creat SerPl 44Ratio Above high normal [id number] 10 - 25 HHCCT GFR/BSA.pred SerPlBld TAY-APX-OqTSld 90 Normal [id number] 59 - HHCCT Glucose SerPl-mCnc 110mg/dL Above high normal [id number] 65 - 99 HHCCT CO2 SerPl-sCnc 31mmol/L Normal [id number] 22 - 33 HH CCT Anion Gap Bld-sCnc 2 Below low normal 447136677524 7 - 17 HHCCT Creat SerPl-mCnc 0.8mg/dL Normal [id number] 0.5 - 1.3 HHCCT Chloride SerPl-sCnc 112mmol/L Above high normal 061649092843 98 - 107 HHCCT Potassium SerPl-sCnc 5.4mmol/L Above high normal [id number] 5 3.4 - 5.3 HHCCT Sodium SerPl-sCnc 145mmol/L Normal [id number] 136 - 145 HHCCT Immature Platelet Fraction 12.2% Above high normal 057251703135 1.2 - 8.6 HHCCT RBC num Bld Auto 2.52Mil/uL Below low normal [id number] 4. 5 - 6.2 HHCCT Platelet num Bld Auto 68Thou/uL Below low normal 555191518163 150 - 450 HHCCT MCV RBC Auto 97fL Normal [id number] 80 - 100 HHCC T nRBC num Bld Auto 0.02Thou/uL Normal [id number] 0 - 0.0 2 HHCCT PMV Bld Auto 12.9fL Above high normal 719815113088 7.5 - 12.5 HHCCT MCH RBC Qn Auto 31pg Normal [id number] 27 - 31 H HCCT MCHC RBC Auto-mCnc 31.8g/dL Normal [id number] 30 - 36 HHCCT nRBC/100 WBC Bld Auto-Rto 0.3/100WBC Above high normal [id number] 0 - 0.1 HHCCT WBC num Bld Auto 7.9Thou/uL Normal [id number] 4 - 11 HHCCT RDW RBC Auto-Rto 13.2% Normal [id number] 11.5 - 14.5 HHCCT Hgb Bld-mCnc 7.8g/dL Below low normal [id number] 13 - 17 .7 HHCCT Hct VFr Bld Auto 24.5% Below low normal 181652147722 39 - 54 HHCCT POC Glucose 112mg/dL Above high normal 631346620704 65 - 99 HHCCT POC Glucose 132mg/dL Above high normal 776961186338 65 - 99 HHCCT POC Glucose 151mg/dL Above high normal 811135957194 65 - 99 HHCCT POC Glucose 147mg/dL Above high normal [id number] 65 - 99 HHCCT POC Glucose 145mg/dL Above high normal [id number] 65 - 99 HHCCT POC Glucose 144mg/dL Above high normal [id number] 65 - 99 HHCCT Phosphate SerPl-mCnc 2.8mg/dL Normal [id number] 2.7 - 4.5 HHCCT Haptoglob SerPl-mCnc 181mg/dL Normal [id number] 30 - 2 00 HHCCT BUN SerPl-mCnc 48mg/dL Above high normal [id number] 8 - 21 HHCCT Glucose SerPl-mCnc 157mg/dL Above high normal 591644529463 65 - 99 HHCCT Creat SerPl-mCnc 1mg/dL Normal [id number] 0.5 - 1.3 HHCCT BUN/Creat SerPl 48Ratio Above high normal 534320973441 10 - 25 HHCCT GFR/BSA.pred SerPlBld ULX-SPP-YjPGal 85 Normal [id number] 59 - HHCCT CO2 SerPl-sCnc 31mmol/L Normal [id number] 22 - 33 HH CCT Sodium SerPl-sCnc 153mmol/L Above high normal 060954156783 1 36 - 145 HHCCT Anion Gap Bld-sCnc 4 Below low normal [id number] 7 - 17 HHCCT Calcium SerPl-mCnc 7.7mg/dL Below low normal [id number] 2 8.7 - 10.5 HHCCT Potassium SerPl-sCnc 4.7mmol/L Normal [id number] 3.4 - 5.3 HHCCT Chloride SerPl-sCnc 118mmol/L Above high normal 275678445982 98 - 107 HHCCT LDH SerPl L to P-cCnc 550U/L Above high normal [id number] 120 - 260 HHCCT Magnesium SerPl-mCnc 3mg/dL Above high normal [id number] 2 1.6 - 2.7 HHCCT AST SerPl-cCnc 109U/L Above high normal [id number] 10 - 55 HHCCT ALT SerPl-cCnc 152U/L Above high normal [id number] 10 - 55 HHCCT Bilirub Direct SerPl-mCnc 3.4mg/dL Above high normal [id number] 0 - 0.2 HHCCT Albumin/Glob SerPl 0.5Ratio Below low normal [id number] 1 - 3 HHCCT Prot SerPl-mCnc 7.6g/dL Normal [id number] 6.3 - 8.3 H HCCT Bilirub SerPl-mCnc 4.5mg/dL Above high normal [id number] 0.2 - 1 HHCCT ALP SerPl-cCnc 56U/L Normal [id number] 45 - 128 HH CCT Globulin Ser Calc-mCnc 5.1g/dL Above high normal [id number] 1.5 - 3.9 HHCCT Albumin SerPl-mCnc 2.5g/dL Below low normal 462229202522 3 .4 - 4.8 HHCCT Eosinophil/leuk NFr Bld Auto 0% Normal [id number] HHCCT Imm Granulocytes/leuk NFr Bld Auto 1.2% Normal [id number] HHCCT WBC num Bld Auto 6Thou/uL Normal [id number] 4 - 11 HHCCT RBC num Bld Auto 2.58Mil/uL Below low normal [id number] 4. 5 - 6.2 HHCCT Neutrophils num Bld Auto 4.99Thou/uL Normal [id number] 2 - 7.5 HHCCT nRBC/100 WBC Bld Auto-Rto 0.3/100WBC Above high normal 631941354352 0 - 0.1 HHCCT nRBC num Bld Auto 0.02Thou/uL Normal [id number] 0 - 0.0 2 HHCCT PMV Bld Auto 12.9fL Above high normal [id number] 7.5 - 12.5 HHCCT Lymphocytes/leuk NFr Bld Auto 7% Normal 795669387754 HHT Immature Platelet Fraction 12.8% Above high normal [id number] 1.2 - 8.6 HHCCT Monocytes/leuk NFr Bld Auto 8.8% Normal [id number] HHCCT Platelet num Bld Auto 55Thou/uL Below low normal [id number] 150 - 450 HHCCT Hgb Bld-mCnc 8.2g/dL Below low normal 129157563450 13 - 17 .7 HHCCT Hct VFr Bld Auto 24.7% Below low normal 254459794015 39 - 54 HHCCT Basophils/leuk NFr Bld Auto 0% Normal 127151491722 HHCCT Eosinophil num Bld Auto 0Thou/uL Normal [id number] 0 - 0.7 HHCCT MCH RBC Qn Auto 31.8pg Above high normal [id number] 27 - 31 HHCCT Lymphocytes num Bld Auto 0.42Thou/uL Below low normal [id number] 1.5 - 4.5 HHCCT Imm Granulocytes num Bld Auto 0.07Thou/uL Normal [id number] 0 - 0.1 HHCCT Monocytes num Bld Auto 0.53Thou/uL Normal [id number] 0.2 - 1.5 HHCCT RDW RBC Auto-Rto 14% Normal [id number] 11.5 - 14.5 HHCCT Basophils num Bld Auto 0Thou/uL Normal 545042408057 0 - 0.2 HHCCT MCV RBC Auto 96fL Normal [id number] 80 - 100 HHCC T MCHC RBC Auto-mCnc 33.2g/dL Normal [id number] 30 - 36 HHCCT Neutrophils/leuk NFr Bld Auto 83% Normal [id number] HHCCT Retics num Auto 9.5Thou/uL Below low normal [id number] 30 - 100 HHCCT Hgb Retic Qn Auto 29.7pg Normal [id number] 28 - 35 HHCCT Immature Reticulocyte Fraction 23.1% Above high normal [id number] 2.3 - 15.9 HHCCT Retics/100 RBC NFr Auto 0.4% Below low normal 495477859701 0.7 - 2 HHCCT POC Glucose 161mg/dL Above high normal [id number] 65 - 99 HHCCT POC Glucose 158mg/dL Above high normal 695844467122 65 - 99 HHCCT POC Glucose 172mg/dL Above high normal [id number] 65 - 99 HHCCT POC Glucose 175mg/dL Above high normal [id number] 65 - 99 HHCCT POC Glucose 175mg/dL Above high normal 035425401990 65 - 99 HHCCT ANCA Ab Ser Ql Normal 072658975142 - HH CCT Proteinase3 Ab Ser EIA-aCnc 2U/mL Normal [id number] - 2 HHCCT Myeloperoxidase Ab Ser EIA-aCnc 3.5U/mL Normal [id number] - 3.5 HHCCT cCP IgG SerPl-aCnc 16Units Normal [id number] - 20 HHCCT C4 SerPl-mCnc 10mg/dL Below low normal 481734903867 15 - 5 3 HHCCT C3 SerPl-mCnc 85mg/dL Normal [id number] 82 - [address] [facility] [address] DNA (ds) Ab Screen Normal [id number] - HHCCT Additional Testing Normal [id number] HHCCT Lupus Anticoagulant Eval. Normal 783361664272 HHCCT aPTT Inhib Sens PPP 31sec Normal [id number] - HHCCT Screen dRVVT 43sec Normal [id number] - HHCC T BM IgG Ser EIA-aCnc 1AI Normal [id number] - 1 HHCCT Anion Gap Bld-sCnc 7 Normal [id number] 7 - 17 HHCCT Glucose SerPl-mCnc 164mg/dL Above high normal 706094392697 65 - 99 HHCCT Chloride SerPl-sCnc 120mmol/L Above high normal 055674187660 98 - 107 HHCCT Sodium SerPl-sCnc 156mmol/L Above high normal 336015524289 1 36 - 145 HHCCT Calcium SerPl-mCnc 7.6mg/dL Below low normal 38925818034 9 8.7 - 10.5 HHCCT BUN/Creat SerPl 54Ratio Above high normal 940962191294 10 - 25 HHCCT BUN SerPl-mCnc 59mg/dL Above high normal 275133806560 8 - 21 HHCCT CO2 SerPl-sCnc 29mmol/L Normal [id number] 22 - 33 HH CCT Potassium SerPl-sCnc 4.7mmol/L Normal [id number] 3.4 - 5.3 HHCCT Creat SerPl-mCnc 1.1mg/dL Normal [id number] 0.5 - 1.3 HHCCT GFR/BSA.pred SerPlBld RRO-GID-ReRNil 76 Normal [id number] 59 - HHCCT PMV Bld Auto 12.7fL Above high normal [id number] 7.5 - 12.5 HHCCT WBC num Bld Auto 5.7Thou/uL Normal [id number] 4 - 11 HHCCT Platelet num Bld Auto 54Thou/uL Below low normal 015065322439 150 - 450 HHCCT MCH RBC Qn Auto 31.3pg Above high normal [id number] 27 - 31 HHCCT MCV RBC Auto 96fL Normal [id number] 80 - 100 HHCC T Hgb Bld-mCnc 8.1g/dL Below low normal 714375425611 13 - 17 .7 HHCCT Hct VFr Bld Auto 24.9% Below low normal 758822421061 39 - 54 HHCCT RDW RBC Auto-Rto 14.3% Normal [id number] 11.5 - 14.5 HHCCT RBC num Bld Auto 2.59Mil/uL Below low normal 695927514939 4. 5 - 6.2 HHCCT MCHC RBC Auto-mCnc 32.5g/dL Normal [id number] 30 - 36 HHCCT Immature Platelet Fraction 11.3% Above high normal [id number] 1.2 - 8.6 HHCCT POC Glucose 165mg/dL Above high normal 313141094568 65 - 99 HHCCT POC Glucose 154mg/dL Above high normal 906571930364 65 - 99 HHCCT POC Glucose 160mg/dL Above high normal 225659739685 65 - 99 HHCCT Magnesium SerPl-mCnc 3.3mg/dL Above high normal 84647351167 0 1.6 - 2.7 HHCCT Creat SerPl-mCnc 1.1mg/dL Normal [id number] 0.5 - 1.3 HHCCT Potassium SerPl-sCnc 4.9mmol/L Normal [id number] 3.4 - 5.3 HHCCT GFR/BSA.pred SerPlBld ZME-SXO-PvSQwv 76 Normal [id number] 59 - HHCCT CO2 SerPl-sCnc 26mmol/L Normal [id number] 22 - 33 HH CCT BUN SerPl-mCnc 67mg/dL Above high normal 041712263006 8 - 21 HHCCT Sodium SerPl-sCnc 149mmol/L Above high normal 646248053093 1 36 - 145 HHCCT Anion Gap Bld-sCnc 5 Below low normal 324551736953 7 - 17 HHCCT Calcium SerPl-mCnc 7.6mg/dL Below low normal [id number] 0 8.7 - 10.5 HHCCT Glucose SerPl-mCnc 158mg/dL Above high normal 197837651625 65 - 99 HHCCT Chloride SerPl-sCnc 118mmol/L Above high normal 276247242524 98 - 107 HHCCT BUN/Creat SerPl 61Ratio Above high normal 805099172919 10 - 25 HHCCT Phosphate SerPl-mCnc 2.8mg/dL Normal [id number] 2.7 - 4.5 HHCCT MCV RBC Auto 96fL Normal [id number] 80 - 100 HHCC T MCH RBC Qn Auto 32pg Above high normal 680150974420 27 - 31 HHCCT Hgb Bld-mCnc 7.3g/dL Below low normal 234977015367 13 - 17 .7 HHCCT RDW RBC Auto-Rto 14.3% Normal [id number] 11.5 - 14.5 HHCCT Hct VFr Bld Auto 21.9% Below low normal 792334721864 39 - 54 HHCCT MCHC RBC Auto-mCnc 33.3g/dL Normal [id number] 30 - 36 HHCCT Immature Platelet Fraction 9.6% Above high normal [id number] 1.2 - 8.6 HHCCT RBC num Bld Auto 2.28Mil/uL Below low normal [id number] 4. 5 - 6.2 HHCCT PMV Bld Auto 12fL Normal [id number] 7.5 - 12.5 HHCCT Platelet num Bld Auto 48Thou/uL Below low normal 032914879320 150 - 450 HHCCT WBC num Bld Auto 4.8Thou/uL Normal [id number] 4 - 11 HHCCT POC Glucose 145mg/dL Above high normal [id number] 65 - 99 HHCCT POC Glucose 190mg/dL Above high normal 409970545919 65 - 99 HHCCT POC Glucose 179mg/dL Above high normal 346741414078 65 - 99 HHCCT Phosphate SerPl-mCnc 3.7mg/dL Normal [id number] 2.7 - 4.5 HHCCT Trigl SerPl-mCnc 531mg/dL Above high normal 892099963516 - 150 HHCCT Creat SerPl-mCnc 1.2mg/dL Normal [id number] 0.5 - 1.3 HHCCT GFR/BSA.pred SerPlBld XPO-TCJ-CfUIin 68 Normal [id number] 59 - HHCCT BUN/Creat SerPl 63Ratio Above high normal [id number] 10 - 25 HHCCT Sodium SerPl-sCnc 149mmol/L Above high normal 363978563306 1 36 - 145 HHCCT Calcium SerPl-mCnc 7.7mg/dL Below low normal 34117875161 4 8.7 - 10.5 HHCCT Glucose SerPl-mCnc 159mg/dL Above high normal 282745444974 65 - 99 HHCCT Anion Gap Bld-sCnc 7 Normal [id number] 7 - 17 HHCCT CO2 SerPl-sCnc 24mmol/L Normal [id number] 22 - 33 HH CCT Potassium SerPl-sCnc 4.9mmol/L Normal [id number] 3.4 - 5.3 HHCCT Chloride SerPl-sCnc 118mmol/L Above high normal [id number] 98 - 107 HHCCT BUN SerPl-mCnc 76mg/dL Above high normal 085643886396 8 - 21 HHCCT Magnesium SerPl-mCnc 3.4mg/dL Above high normal 45181542501 4 1.6 - 2.7 HHCCT MCHC RBC Auto-mCnc 33.6g/dL Normal [id number] 30 - 36 HHCCT Hct VFr Bld Auto 23.5% Below low normal [id number] 39 - 54 HHCCT Hgb Bld-mCnc 7.9g/dL Below low normal 827229920572 13 - 17 .7 HHCCT RDW RBC Auto-Rto 14.6% Above high normal 367909663229 11.5 - 14.5 HHCCT Platelet num Bld Auto 28Thou/uL Below low normal 506705504684 150 - 450 HHCCT MCH RBC Qn Auto 31.3pg Above high normal 240756360256 27 - 31 HHCCT Immature Platelet Fraction 14.9% Above high normal 387018321530 1.2 - 8.6 HHCCT MCV RBC Auto 93fL Normal [id number] 80 - 100 HHCC T RBC num Bld Auto 2.52Mil/uL Below low normal 399921118270 4. 5 - 6.2 HHCCT WBC num Bld Auto 5.8Thou/uL Normal [id number] 4 - 11 HHCCT PMV Bld Auto 13.8fL Above high normal 572729005282 7.5 - 12.5 HHCCT POC Glucose 204mg/dL Above high normal 333852328152 65 - 99 HHCCT POC Glucose 175mg/dL Above high normal 416249912207 65 - 99 HHCCT POC Glucose 167mg/dL Above high normal 163516629598 65 - 99 HHCCT Magnesium SerPl-mCnc 3.5mg/dL Above high normal 22428088599 3 1.6 - 2.7 HHCCT Phosphate SerPl-mCnc 4.5mg/dL Normal [id number] 2.7 - 4.5 HHCCT Anion Gap Bld-sCnc 6 Below low normal 276146805579 7 - 17 HHCCT GFR/BSA.pred SerPlBld FZC-QAI-SoITnz 48 Below low normal 970529917178 59 - HHCCT Creat SerPl-mCnc 1.6mg/dL Above high normal 953761470847 0. 5 - 1.3 HHCCT Chloride SerPl-sCnc 116mmol/L Above high normal 298057759724 98 - 107 HHCCT Calcium SerPl-mCnc 7.8mg/dL Below low normal 09060925640 3 8.7 - 10.5 HHCCT CO2 SerPl-sCnc 24mmol/L Normal [id number] 22 - 33 HH CCT Glucose SerPl-mCnc 147mg/dL Above high normal [id number] 65 - 99 HHCCT BUN/Creat SerPl 53Ratio Above high normal 012018194802 10 - 25 HHCCT BUN SerPl-mCnc 84mg/dL Above high normal 261645482725 8 - 21 HHCCT Sodium SerPl-sCnc 146mmol/L Above high normal 550249802119 1 36 - 145 HHCCT Potassium SerPl-sCnc 4.9mmol/L Normal [id number] 3.4 - 5.3 HHCCT Hgb Bld-mCnc 7.6g/dL Below low normal [id number] 13 - 17 .7 HHCCT RBC num Bld Auto 2.46Mil/uL Below low normal [id number] 4. 5 - 6.2 HHCCT Platelet num Bld Auto 30Thou/uL Below low normal [id number] 150 - 450 [facility] PMV Bld Auto 13.8fL Above high normal 158860326867 7.5 - 12.5 [facility] Immature Platelet Fraction 12.2% Above high normal 049872427519 1.2 - 8.6 [facility] Hct VFr Bld Auto 23.6% Below low normal [id number] 39 - 54 [facility] MCV RBC Auto 96fL Normal [id number] 80 - 100 [facility] T RDW RBC Auto-Rto 14.6% Above high normal [id number] 11.5 - 14.5 [facility] WBC num Bld Auto 7.7Thou/uL Normal 701602914035 4 - 11 [facility] MCH RBC Qn Auto 30.9pg Normal 511381511143 27 - 31 H [facility] MCHC RBC Auto-mCnc 32.2g/dL Normal [id number] 30 - 36 [facility] POC Glucose 146mg/dL Above high normal 175933521387 65 - 99 [facility] POC Glucose 125mg/dL Above high normal 595222530823 65 - 99 [facility] POC Glucose 119mg/dL Above high normal 451177236899 65 - 99 [facility] Magnesium SerPl-mCnc 3.3mg/dL Above high normal 88567792620 2 1.6 - 2.7 [facility] Phosphate SerPl-mCnc 5mg/dL Above high normal 63408335851 2 2.7 - 4.5 [facility] CO2 SerPl-sCnc 20mmol/L Below low normal 677116460335 22 - 33 [facility] Creat SerPl-mCnc 1.6mg/dL Above high normal 110254952713 0. 5 - 1.3 [facility] BUN SerPl-mCnc 85mg/dL Above high normal 757395290752 8 - 21 [facility] Chloride SerPl-sCnc 115mmol/L Above high normal 690911336897 98 - 107 [facility] Anion Gap Bld-sCnc 9 Normal 812576541692 7 - 17 [facility] Calcium SerPl-mCnc 7.8mg/dL Below low normal 67237220125 2 8.7 - 10.5 [facility] Sodium SerPl-sCnc 144mmol/L Normal [id number] 136 - 145 [facility] GFR/BSA.pred SerPlBld [id number]-KLZ-HeQIku 48 Below low normal 694029437415 59 - [facility] Glucose SerPl-mCnc 125mg/dL Above high normal 882631134337 65 - 99 [facility] BUN/Creat SerPl 53Ratio Above high normal 941404832879 10 - 25 [facility] Potassium SerPl-sCnc 4.8mmol/L Normal [id number] 3.4 - 5.3 [facility] Immature Platelet Fraction 15% Above high normal 676907864054 1.2 - 8.6 [facility] Platelet num Bld Auto 35Thou/uL Below low normal [id number] 150 - 450 [facility] MCV RBC Auto 92fL Normal [id number] 80 - 100 [facility] T Hct VFr Bld Auto 24.2% Below low normal 293497968333 39 - 54 [facility] WBC num Bld Auto 10.7Thou/uL Normal 780352462287 4 - 11 [facility] PMV Bld Auto 13.3fL Above high normal 582002500482 7.5 - 12.5 [facility] MCHC RBC Auto-mCnc 33.5g/dL Normal 672901853589 30 - 36 [facility] Hgb Bld-mCnc 8.1g/dL Below low normal 856227912823 13 - 17 .7 [facility] RBC num Bld Auto 2.62Mil/uL Below low normal 443854046084 4. 5 - 6.2 [facility] RDW RBC Auto-Rto 14.7% Above high normal 298826213705 11.5 - 14.5 [facility] MCH RBC Qn Auto 30.9pg Normal 566859844162 27 - 31 H [facility] POC Glucose 142mg/dL Above high normal 595360675621 65 - 99 [facility] POC Glucose 127mg/dL Above high normal 019260275005 65 - 99 [facility] Hct VFr Bld Auto 23% Below low normal 299278271907 39 - 54 [facility] Hgb Bld-mCnc 7.8g/dL Below low normal 398782300379 13 - 17 .7 [facility] COHgb MFr Bld 3.2% Above high normal 277786154972 0 - 2 [facility] pH BldV 7.29 Below low normal 708464680512 7.33 - 7.43 [facility] Hgb Bld-mCnc 8.5g/dL Below low normal 760213292833 13 - 17 .7 [facility] pCO2 BldV 52mmHG Above high normal 084166161148 35 - 50 [facility] CO2 BldV-sCnc 26mmol/L Normal 757083867470 23 - [address] SaO2 % BldV from pO2 86.1% Normal 551664777296 H[facility]CT pO2 BldV 58mmHG Normal 148669839559 0 - 60 [facility] Base deficit BldA-sCnc 1.7mmol/L Normal 223862755286 H[facility]CT MetHgb MFr Bld 1.1% Normal 551098238111 0.4 - 1.[address] VFr BldV Calc 9.9mL/dL Normal [id number] 7.2 - 17.2 [facility] Respiratory Information VENT 40% Normal 486016981250 HHCCT POC Glucose 133mg/dL Above high normal 875231666267 65 - 99 [facility] POC Glucose 131mg/dL Above high normal 839185950900 65 - 99 [facility] Folate SerPl-mCnc Normal 722759469935 7.2 - HHCCT Vit B12 SerPl-mCnc 904pg/mL Above high normal 596624066209 243 - 894 [facility] Hgb A1c MFr Bld 5.8% Above high normal [id number] - 5 .7 [facility] Est. average glucose Bld gHb Est-mCnc 120mg/dL Normal [id number] [facility] Potassium SerPl-sCnc 4.9mmol/L Normal [id number] 3.4 - 5.3 [facility] BUN SerPl-mCnc 70mg/dL Above high normal [id number] 8 - 21 [facility] Chloride SerPl-sCnc 115mmol/L Above high normal 152106373418 98 - 107 [facility] GFR/BSA.pred SerPlBld EUM-NSU-XgXQxp 57 Below low normal [id number] 59 - H[facility]CT Creat SerPl-mCnc 1.4mg/dL Above high normal [id number] 0. 5 - 1.3 [facility] Anion Gap Bld-sCnc 9 Normal [id number] 7 - 17 [facility] Glucose SerPl-mCnc 136mg/dL Above high normal [id number] 65 - 99 [facility] Sodium SerPl-sCnc 146mmol/L Above high normal 839556471336 1 36 - 145 [facility] BUN/Creat SerPl 50Ratio Above high normal [id number] 10 - 25 [facility]CT Calcium SerPl-mCnc 8mg/dL Below low normal 85836019669 7 8.7 - 10.5 [facility] CO2 SerPl-sCnc 22mmol/L Normal [id number] 22 - 33 HH CCT Iron SerPl-mCnc 126ug/dL Normal [id number] 53 - 167 H [facility] Phosphate SerPl-mCnc 4.9mg/dL Above high normal [id number] 7 2.7 - 4.5 [facility]CT Magnesium SerPl-mCnc 3.1mg/dL Above high normal 66381998234 7 1.6 - 2.7 [facility] MCV RBC Auto 93fL Normal [id number] 80 - 100 [facility] T Hct VFr Bld Auto 23.3% Below low normal [id number] 39 - 54 [facility] WBC num Bld Auto 12.1Thou/uL Above high normal [id number] 4 - 11 [facility] MCH RBC Qn Auto 31.5pg Above high normal [id number] 27 - 31 [facility] RBC num Bld Auto 2.51Mil/uL Below low normal [id number] 4. 5 - 6.2 [facility] Platelet num Bld Auto 42Thou/uL Below low normal [id number] 150 - 450 [facility] Immature Platelet Fraction 9.3% Above high normal [id number] 1.2 - 8.6 H[facility]CT MCHC RBC Auto-mCnc 33.9g/dL Normal [id number] 30 - 36 [facility] Hgb Bld-mCnc 7.9g/dL Below low normal [id number] 13 - 17 .7 H[facility]CT PMV Bld Auto 12.4fL Normal [id number] 7.5 - 12.5 [facility]CT RDW RBC Auto-Rto 14.5% Normal [id number] 11.5 - 14.5 H[facility]CT pCO2, Arterial 50mmHG Above high normal 994184453867 32 - 45 [facility] Total CO2, Arterial 26mmol/L Normal [id number] 22 - 28 [facility] P/F Ratio 573 Normal [id number] H[facility] pH, Arterial 7.3 Below low normal [id number] 7.35 - 7.45 [facility] Base deficit BldA-sCnc 2.3mmol/L Normal 077219065025 H[facility] pO2, Arterial 229mmHG Above high normal [id number] 75 - 95 [facility] Respiratory Information VENT 40% Normal [id number] H[facility] POC Glucose 148mg/dL Above high normal [id number] 65 - 99 H[facility]CT HIV 1+2 Ab+HIV1 p24 Ag Ser EIA-aCnc Normal 648927398789 - H[facility]CT CRP SerPl-mCnc 20.8mg/dL Above high normal [id number] 0 - 0.49 [facility]CT Ferritin SerPl-mCnc 913ug/L Above high normal [id number] 30 - 400 H[facility]CT ESR Bld Qn 32MM/HR Above high normal [id number] - 20 [facility] pH, Arterial 7.33 Below low normal [id number] 7.35 - 7.45 [facility] P/F Ratio 253 Normal [id number] H[facility]CT pO2, Arterial 152mmHG Above high normal [id number] 75 - 95 [facility]CT Base deficit BldA-sCnc 3.1mmol/L Normal 462323038849 H[facility]CT pCO2, Arterial 44mmHG Normal [id number] 32 - 45 HH CCT Total CO2, Arterial 24mmol/L Normal [id number] 22 - 28 [facility]CT Respiratory Information VENT 60% Normal 655920391267 H[facility]CT POC Glucose 132mg/dL Above high normal [id number] 65 - 99 H[facility]CT Specimen source XXX Normal [id number] H[facility]CT P jiroveci Ag XXX Ql IF Normal [id number] - [facility] Appearance Fld Normal 995754731038 HH CCT Color Fld Normal [id number] [facility] Nuc cell num Fld Auto 110/CUMM Normal [id number] [facility] RBC num Fld Auto 4455/CUMM Normal [id number] [facility] Base deficit BldA-sCnc 2.3mmol/L Normal [id number] [facility] pO2, Arterial 190mmHG Above high normal 768840899523 75 - 95 [facility] pH, Arterial 7.4 Normal [id number] 7.35 - 7.45 [facility] pCO2, Arterial 36mmHG Normal [id number] 32 - 45 [facility] P/F Ratio 211 Normal [id number] [facility] Total CO2, Arterial 23mmol/L Normal [id number] 22 - 28 [facility] Respiratory Information VENT 90% Normal [id number] [facility] Pathology Comment Smear reivew: Normal [id number] [facility] Smear Origin Normal [id number] [facility] T S pneum Ag Ur Ql Abnormal [id number] - [facility] L pneumo Ag Spec Ql Normal [id number] - [facility] pro BNP, N-terminal 3773pg/mL Above high normal [id number] - 125 [facility] Normocytes Normal [id number] [facility] Normochromic Bld Ql Smear Normal [id number] [facility] Platelet num Bld Auto 16Thou/uL Critically low [id number] 150 - 450 [facility] Immature Platelet Fraction 18.5% Above high normal [id number] 1.2 - 8.6 [facility] Hgb Retic Qn Auto 30.1pg Normal [id number] 28 - 35 [facility] Immature Reticulocyte Fraction 4.7% Normal [id number] 2.3 - 15.9 [facility] Retics num Auto 13.9Thou/uL Below low normal [id number] 30 - 100 [facility] Retics/100 RBC NFr Auto 0.4% Below low normal [id number] 0.7 - 2 [facility]CT Trigl SerPl-mCnc 363mg/dL Above high normal [id number] - 150 [facility] Haptoglob SerPl-mCnc 137mg/dL Normal [id number] 30 - 2 00 H[facility]CT ALT SerPl-cCnc 20U/L Normal [id number] 10 - 55 HH CCT ALP SerPl-cCnc 66U/L Normal [id number] 45 - 128 HH CCT Prot SerPl-mCnc 5.2g/dL Below low normal [id number] 6.3 - 8.3 H[facility]CT AST SerPl-cCnc 48U/L Normal [id number] 10 - 55 HH CCT Albumin SerPl-mCnc 2.6g/dL Below low normal [id number] 3 .4 - 4.8 H[facility]CT Bilirub SerPl-mCnc 3.2mg/dL Above high normal [id number] 0.2 - 1 [facility] Albumin/Glob SerPl 1Ratio Normal [id number] 1 - 3 [facility]CT Globulin Ser Calc-mCnc 2.6g/dL Normal [id number] 1.5 - 3.9 H[facility]CT Bilirub Direct SerPl-mCnc 2.4mg/dL Above high normal [id number] 0 - 0.2 HHCCT LDH SerPl L to P-cCnc 436U/L Above high normal [id number] 120 - 260 [facility]CT POC Glucose 143mg/dL Above high normal [id number] 65 - 99 [facility]CT Influenza virus A in upper resp spec by JEFF with probe detection Normal [id number] [facility] 2019-nCOV RNA Normal [id number] [facility] CT Comment Normal [id number] H[facility]CT Respiratory syncytial virus RNA in upper resp spec by JEFF with probe detection Normal [id number] H[facility]CT Influenza virus B in upper resp spec by JEFF with probe detection Normal [id number] [facility] POC Glucose 142mg/dL Above high normal [id number] 65 - 99 H[facility]CT pCO2 BldV 37mmHG Normal [id number] 35 - 50 H[facility]CT pO2 BldV 49mmHG Normal [id number] 0 - 60 [facility]CT Hgb Bld-mCnc 11g/dL Below low normal [id number] 13 - 17 .7 H[facility]CT Base deficit BldA-sCnc 2.9mmol/L Normal [id number] [facility]CT MetHgb MFr Bld 0.7% Normal [id number] 0.4 - 1.5 HH CCT SaO2 % BldV from pO2 83.5% Normal [id number] [facility] CO2 BldV-sCnc 22mmol/L Below low normal [id number] 23 - [address] VFr BldV Calc 12.7mL/dL Normal [id number] 7.2 - 17.2 HHCCT pH BldV 7.38 Normal [id number] 7.33 - 7.43 HHCCT COHgb MFr Bld 1.6% Normal [id number] 0 - [address] Respiratory Information OTHER Normal [id number] H[facility]CT Fibrinogen PPP-mCnc 579mg/dL Above high normal [id number] 148 - 435 HHCCT INR PPP 1.3 Normal [id number] H[facility]CT Prothrombin time 14.4seconds Above high normal [id number] 10 - 13.5 HHCCT Anticoagulant NO ANTI COAGULANT MEDS Normal [id number] HHCCT TT imm Bovine Thrombin PPP 12.2seconds Below low normal [id number] 12.7 - 19.2 HHCCT Anticoagulant NO ANTI COAGULANT MEDS Normal [id number] HHCCT aPTT PPP 27seconds Normal [id number] 25 - 36 HHCCT Anticoagulant NO ANTI COAGULANT MEDS Normal [id number] H[facility]CT WBC num Bld Auto 14.2Thou/uL Above high normal [id number] 4 - 11 HHCCT Hgb Bld-mCnc 10.9g/dL Below low normal [id number] 13 - 17 .7 HHCCT RBC num Bld Auto 3.49Mil/uL Below low normal [id number] 4. 5 - 6.2 HHCCT MCV RBC Auto 89fL Normal [id number] 80 - 100 [facility] T Hct VFr Bld Auto 31.2% Below low normal [id number] 39 - 54 HHCCT MCHC RBC Auto-mCnc 34.9g/dL Normal [id number] 30 - 36 HHCCT RDW RBC Auto-Rto 13.6% Normal [id number] 11.5 - 14.5 HHCCT MCH RBC Qn Auto 31.2pg Above high normal [id number] 27 - 31 H[facility]CT Platelet num Bld Auto 9Thou/uL Critically low [id number] 150 - 450 [facility]CT Immature Platelet Fraction 30.2% Above high normal [id number] 1.2 - 8.6 H[facility]CT CO2 SerPl-sCnc 20mmol/L Below low normal [id number] 22 - 33 H[facility]CT Calcium SerPl-mCnc 8.2mg/dL Below low normal [id number] 3 8.7 - 10.5 HHCCT Creat SerPl-mCnc 1.1mg/dL Normal [id number] 0.5 - 1.3 HHCCT GFR/BSA.pred SerPlBld FBH-TNS-VlXXrv 76 Normal [id number] 59 - HHCCT Glucose SerPl-mCnc 145mg/dL Above high normal [id number] 65 - 99 HHCCT BUN SerPl-mCnc 49mg/dL Above high normal [id number] 8 - 21 HHCCT Anion Gap Bld-sCnc 11 Normal [id number] 7 - 17 HHCCT Potassium SerPl-sCnc 4mmol/L Normal [id number] 3.4 - 5.3 HHCCT BUN/Creat SerPl 45Ratio Above high normal [id number] 10 - 25 HHCCT Chloride SerPl-sCnc 112mmol/L Above high normal [id number] 98 - 107 HHCCT Sodium SerPl-sCnc 143mmol/L Normal [id number] 136 - 145 HHCCT Phosphate SerPl-mCnc 3.2mg/dL Normal [id number] 2.7 - 4.5 HHCCT Magnesium SerPl-mCnc 2.5mg/dL Normal [id number] 1.6 - 2.7 HHCCT POC Glucose 133mg/dL Above high normal [id number] 65 - 99 H[facility]CT POC Glucose 149mg/dL Above high normal [id number] 65 - 99 HHCCT Hgb Bld-mCnc 11g/dL Below low normal [id number] 13 - 17 .7 HHCCT COHgb MFr Bld 1.6% Normal [id number] 0 - [address] pO2, Arterial 46mmHG Below low normal [id number] 75 - 9 5 HHCCT pH, Arterial 7.38 Normal [id number] 7.35 - 7.45 H[facility]CT Base deficit BldA-sCnc 3.6mmol/L Normal [id number] H[facility]CT pCO2, Arterial 35mmHG Normal [id number] 32 - 45 HH CCT MetHgb MFr Bld 0.9% Normal [id number] 0.4 - 1.5 HH CCT Total CO2, Arterial 22mmol/L Normal [id number] 22 - [address] VFr BldA Calc 12.2mL/dL Below low normal [id number] 17 17.6 - 24.3 CCT SaO2 % BldA 80.9% Below low normal [id number] 94 - 97 [facility] Respiratory Information OTHER Normal [id number] [facility] POC Glucose 107mg/dL Above high normal [id number] 65 - 99 [facility] Lactate SerPl-sCnc 1.9mmol/L Normal [id number] 0.5 - 1. 9 HHCCT aPTT PPP 30seconds Normal [id number] 25 - 36 CCT Anticoagulant NO ANTI COAGULANT MEDS Normal [id number] [facility] TT imm Bovine Thrombin PPP 12.9seconds Normal [id number] 12.7 - 19.2 HHT Anticoagulant NO ANTI COAGULANT MEDS Normal [id number] [facility] Prothrombin time 14seconds Above high normal [id number] 10 - 13.5 [facility] INR PPP 1.3 Normal [id number] [facility] Anticoagulant NO ANTI COAGULANT MEDS Normal [id number] [facility] Fibrinogen PPP-mCnc 550mg/dL Above high normal [id number] 148 - 435 [facility] pro BNP, N-terminal 5786pg/mL Above high normal [id number] - 125 [facility] Troponin T SerPl-mCnc 22ng/L Normal [id number] - 23 CCT Delta Normal [id number] - 3 H[facility] Result Normal [id number] - [facility] Monocytes/leuk NFr Bld Auto 2% Normal [id number] HHCCT Normocytes Normal [id number] H[facility]CT Normochromic Bld Ql Smear Normal [id number] H[facility]CT Segmented Neutrophil 98% Normal [id number] H[facility]CT Monocyte, Absolute 0.3Thou/uL Normal [id number] 0.2 - 1 .5 H[facility]CT Neutrophils num Bld Auto 16.2Thou/uL Above high normal [id number] 2 - 7.5 HHCCT Hgb Bld-mCnc 11.6g/dL Below low normal [id number] 13 - 17 .7 HHCCT MCHC RBC Auto-mCnc 34.4g/dL Normal [id number] 30 - 36 HHCCT Hct VFr Bld Auto 33.7% Below low normal [id number] 39 - 54 HHCCT MCV RBC Auto 90fL Normal [id number] 80 - 100 HHCC T PMV Bld Auto 10.5fL Normal [id number] 7.5 - 12.5 H[facility]CT Immature Platelet Fraction 27.9% Above high normal [id number] 1.2 - 8.6 HHCCT RDW RBC Auto-Rto 13.4% Normal [id number] 11.5 - 14.5 HHCCT RBC num Bld Auto 3.76Mil/uL Below low normal [id number] 4. 5 - 6.2 H[facility]CT Platelet num Bld Auto 10Thou/uL Critically low [id number] 150 - 450 H[facility]CT WBC num Bld Auto 16.5Thou/uL Above high normal [id number] 4 - 11 HHCCT MCH RBC Qn Auto 30.9pg Normal [id number] 27 - 31 H HCCT Magnesium SerPl-mCnc 2.3mg/dL Normal [id number] 1.6 - 2.7 HHCCT BUN/Creat SerPl 45Ratio Above high normal [id number] 10 - 25 HHCCT BUN SerPl-mCnc 45mg/dL Above high normal [id number] 8 - 21 HHCCT Creat SerPl-mCnc 1mg/dL Normal [id number] 0.5 - 1.3 HHCCT GFR/BSA.pred SerPlBld CBZ-WON-GsAVvx 85 Normal [id number] 59 - HHCCT Calcium SerPl-mCnc 7.9mg/dL Below low normal [id number] 4 8.7 - 10.5 HHCCT CO2 SerPl-sCnc 21mmol/L Below low normal [id number] 22 - 33 HHCCT Chloride SerPl-sCnc 109mmol/L Above high normal [id number] 98 - 107 H[facility]CT Glucose SerPl-mCnc 92mg/dL Normal [id number] 65 - 99 HHCCT Sodium SerPl-sCnc 141mmol/L Normal [id number] 136 - 145 HHCCT Potassium SerPl-sCnc 3.6mmol/L Normal [id number] 3.4 - 5.3 HHCCT Anion Gap Bld-sCnc 11 Normal [id number] 7 - 17 HHCCT TSH SerPl DL<=0.005 mIU/L-aCnc 0.8mIU/L Normal [id number] 0.27 - 4.2 HHCCT Phosphate SerPl-mCnc 3.3mg/dL Normal [id number] 2.7 - 4.5 HHCCT ALP SerPl-cCnc 97U/L Normal [id number] 45 - 128 HH CCT ALT SerPl-cCnc 18U/L Normal [id number] 10 - 55 HH CCT Prot SerPl-mCnc 5.2g/dL Below low normal [id number] 6.3 - 8.3 HHCCT AST SerPl-cCnc 43U/L Normal [id number] 10 - 55 HH CCT Albumin SerPl-mCnc 2.8g/dL Below low normal [id number] 3 .4 - 4.8 HHCCT Bilirub Direct SerPl-mCnc 1.9mg/dL Above high normal [id number] 0 - 0.2 HHCCT Bilirub SerPl-mCnc 2.6mg/dL Above high normal [id number] 0.2 - 1 HHCCT Albumin/Glob SerPl 1.2Ratio Normal [id number] 1 - 3 HHCCT Globulin Ser Calc-mCnc 2.4g/dL Normal [id number] 1.5 - 3.9 HHCCT POC Glucose 103mg/dL Above high normal [id number] 65 - 99 HHCCT Encounters Encounter Type Encounter Reason Primary Diagnosis Location Date Inpatient Intracranial and intraspinal phlebitis and thrombophlebitis Intracranial and intraspinal phlebitis and thrombophlebitis [facility] Care Team Organization Name [employer] [employer] Email Start Date End Da te [facility] 09/10/2024 [facility] Primary Care 09/08/2024 [facility] 09/07/2024
[2024-09-22 16:08] VITALS: BMI 25.7
[2024-09-22 16:48] VITALS: BP 119/62; PULSE 82; RESP 18; TEMP 36.9; O2SAT 97
--- NOTE | 2024-09-22 16:49 | P.HPHOSP_ITS ---
History of Present Illness Date of Service: 09/22/24 Attending physician on admission: Sita Nava Chief Complaint: dysphagia This is a 64-year-old male who was originally seen in the emergency department here [facility] on September 07 admitted for the following CT of the hea d showed otitis media, otitis externa with soft tissue abscess, and mastoiditis. ENT consultation was recommended. The ED reached out to ENT at [facility], who declined transfer as the patient did not need surgical intervention in their opinion. Blood cultures and right ear culture were sent. He was given 30 cc/kg of normal saline IV plus vancomycin and piperacillin- tazobactam.He was admitted to the hospital. oxygen requirement worsened and he required high-flow nasal cannula. His left eye to be proptotic with complete CN III and palsies. He was started on vancomycin + meropenem + caspofungin. MRV/MRI of the brain which showed left extra-ocular muscle enlargement and edema with left superior ophthalmic vein enlargement and possible thrombosis, highly suggestive of left carvenous sinus thrombosis. The right mastoid had a tympanic space effusion and cerumen impaction in the external auditory canal. The right temporalis muscle had extensive edema concerning for direct extension of mastoiditis and right cavernous sinus thrombosis. The right sphenoparietal sinus appeared thrombosed. For these reasons he was transferred to [facility] for specialist evaluation including ophthalmology and otolaryngology. He accepted to the MICU at [facility]. 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 He has had treatment of above medical issues and [facility] has requested to transfer him back for placement. Patient is awake, alert in no acute distress and has no specific complaints at this time. Patient denies pain in his left eye, unable to open the eye which has been persistent since admission. Review of Systems Review of Systems: Yes all other systems are reviewed and are negative Constitutional: Constitutional: Denies chills and Denies fever(s) Cardiovascular: Cardiovascular: Denies chest pain and Denies palpitations Endocrine: Endocrine: Denies palpitations PMFSH Social History Household Members: None Housing: House Do you presently have visiting nurse or other home services: No Alcohol intake: former Comment: pt stopped drinking 15 years ago, drank 6-8 beers per day Patient Tobacco Use Status: Never used Tobacco Use of substances other than those prescribed or required for medical reasons: No Currently Displaying Signs/Symptoms of Drug Intoxication Withdrawal: No Any prior treatment program specific to substance use: No Have you been hit, kicked, punched, or otherwise hurt by someone within the past year? If so, by whom?: No Do you feel safe in your current relationship?: No Current Relationship Is there a partner from a previous relationship who is making you feel unsafe now?: No Are you made to feel afraid or neglected: No Advance Directives: No Advance Directives Information Provided: Yes Do you have a plan to hurt others: No Plan Recently lost weight without trying: No Eating poorly because of decreased appetite: No Nutrition Risks: Poor intake 0-25% >4 days service: No Meds Allergies Allergy/AdvReac Type Severity Reaction Status Date / Time No Known Allergies Allergy Verified 09/06/24 19:27 [No Known Allergies*] Active Medications: Current Medications Acetaminophen (Acetaminophen 325 Mg Tablet) 650 mg PO Q6H PRN PRN Reason: Pain, Mild 1-3,fever,headache Calcium Carbonate (Calcium Carbonate 750 Mg Tab.Chew) 750 mg PO Q4H PRN PRN Reason: Heartburn Melatonin (Melatonin 3 Mg Tablet) 6 mg PO BEDTIME PRN PRN Reason: Insomnia Sodium Chloride (0.9 % Sodium Chloride Flush 3 Ml Syringe) 3 ml IVFLUSH QSHIFT [facility] Home Medications ?Medication ?Instructions ?Recorded ?Confirmed ?Last Taken ?Type carbamide peroxide 6.5 % ear drops 5 drp otic (ears) BID prn 09/07/24 09/07/24 Unknown History (Murine Ear) fluoxetine 40 mg capsule 40 mg PO DAILY 09/07/24 09/07/24 Unknown History ofloxacin 0.3 % ear drops 10 drp otic (ear) right DAILY 09/07/24 09/07/24 Unknown History risperidone 0.5 mg tablet 0.5 mg PO BID 09/07/24 09/07/24 Unknown History acetaminophen 325 mg tablet 325 mg PO QID PRN 09/22/24 Unknown History Fever/Pain/Headache bisacodyl 10 mg rectal suppository 10 mg WV DAILY PRN Constipation 09/22/24 Unknown History folic acid 1 mg tablet 1 mg PO DAILY 09/22/24 Unknown History heparin (porcine) 1,000 unit/mL 2,800 unit IV Q6H PRN Anti-Xa 09/22/24 Unknown History injection solution Level less then 0.1 units/mL insulin lispro 100 unit/mL 1 sliding scale dose subcut QIDACHS 09/22/24 Unknown History subcutaneous pen lactulose 10 gram/15 mL oral 30 ml PO DAILY PRN Constipation 09/22/24 Unknown History solution metoprolol tartrate 50 mg tablet 50 mg PO Q12H 09/22/24 Unknown History multivitamin with minerals 15 ml PO DAILY 09/22/24 Unknown History nicotine 21 mg/24 hr daily 1 patch transdermal DAILY 09/22/24 Unknown History transdermal patch thiamine HCl (vitamin B1) 100 mg 100 mg PO DAILY 09/22/24 Unknown History tablet Physical Exam Vital Signs and Narrative: Vital Signs: Last Vital Signs Temp 98.4 F 09/22/24 16:48 Pulse 82 09/22/24 16:48 Resp 18 09/22/24 16:48 BP 119/62 09/22/24 16:48 Pulse Ox 97 09/22/24 16:48 O2 Del Method Room Air 09/22/24 16:48 BMI result Body Mass Index 25.7 Const: Other: left eye shut General: alert and awake Nutritional Appearance: average body habitus Orientation/consciousness: patient oriented x3 Resp: Effort & Inspection: normal respiratory effort, able to speak in complete sentences, no respiratory distress and no use of accessory muscles Cardio: Rate: regular rate GI: Inspection: No distended Palpation (GI): Soft to palpation and nontender Neuro: Other: heels in offloading boots General: patient oriented x3 Assessment and Plan (1) Cavernous sinus thrombosis: Status: Acute Plan This is a 64-year-old male with history of depression, remote history of alcohol dependence admitted for suspected otitis media/externa complicated with mastoiditis/orbital involvement/soft tissue abscess, septic cavernous sinus thrombosis and ventriculitis/meningitis, ARDS requiring mechanical ventilation, severe thrombocytopenia due to ITP status post IVIG, persistent dysphagia, 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 initially treated with heparin drip transferred back from [facility] to [facility] Cavernous sinus thrombosis/internal jugular thrombosis Status post heparin drip Start Eliquis for 3-6 months Recommend repeat MRV outpatient Septic venous sinus thrombosis/meningitis/ventriculitis Complete a course of antibiotics on September 19 at [facility] Blood Cultures from their facility negative Severe thrombocytopenia due to ITP Status post treatment with IVIG Platelets normalized per records Dysphagia Seen by speech therapy yesterday and cleared for diet at [facility] Continue pureed diet with thin liquids Speech therapy Code status-full code as per documentation from [facility] DVT prophylaxis-initiate Eliquis Mood Continue fluoxetine when med rec completed Remote history of alcohol use disorder Continue thiamine, folic acid Tobacco dependence Continue nicotine replacement Med reconciliation is pending at the time of admission We will order Physical therapy evaluation-patient reports he was independent and walking prior to hospitalization, per records from [facility] patient is currently dependent for all ADLs. Will likely need extensive rehab Quality Stroke Does the patient have a stroke diagnosis?: No VTE Prior VTE?: No VTE Risk Level:: Medical - moderate - high VTE Device Contraindication: N/A - Device Ordered VTE Drug Contraindication: Treatment Not Indicated
[2024-09-22] MEDS: 0.9 % Sodium Chloride Flush 3 ML SYRINGE IVFLUSH ×2 (17:45→21:23)
[2024-09-22 17:58] LABS: Glucose, Whole Blood 104 mg/dL (60-115)
--- NOTE | 2024-09-22 19:06 | PHA.MEDREC ---
Addendum entered by [facility], located [facility] 09/22/24 19:24: Daughter called back to confirm pt is still in risperidone 0.5mg BID. Original Note: Pharmacy Consult ? Medication Reconciliation Pharmacy has completed the medication reconciliation. Utilized list from . Pt has consistent and recent claims for risperidone 0.5mg BID, this was added to the med list in addition ot the list from .
[2024-09-22 19:25] VITALS: BP 137/67; PULSE 88; RESP 18; TEMP 36.9; O2SAT 95
[2024-09-22 20:37] LABS: Glucose, Whole Blood 100 mg/dL (60-115)
[2024-09-22 21:22] VITALS: BP 129/63; PULSE 84
[2024-09-22] MEDS: risperiDONE 0.5 MG TABLET PO (21:22)
[2024-09-22] MEDS: Metoprolol Tartrate 50 MG TABLET PO (21:22)
[2024-09-22] MEDS: Multivitamin TABLET 1 TAB PO (21:22)
[2024-09-22] MEDS: Apixaban 5 MG TABLET PO (21:22)
[2024-09-22 23:52] VITALS: BP 123/59; PULSE 73; RESP 16; TEMP 37.1; O2SAT 94
[2024-09-23] VITALS (7 sets, daily range): BP systolic 108–121; BP diastolic 57–62; PULSE 73–96; RESP 18–20; TEMP 36.8–37.8; O2SAT 94–97
[2024-09-23 06:45] LABS: Anion Gap 7 (12-20); Blood Urea Nitrogen 22 mg/dL (9-16); Calcium 7.4 mg/dL (8.4-10.2); Carbon Dioxide 21 mmol/L (22-29); Chloride 119 mmol/L (96-108); Creatinine Clr Calc Pharmacy 129.4; Estimated Glomerular Filt Rate > 60; Glucose Random 80 mg/dL (60-115); Potassium 3.8 mmol/L (3.3-5.1); Sodium 143 mmol/L (135-145)
[2024-09-23 07:02] LABS: Glucose, Whole Blood 84 mg/dL (60-115)
[2024-09-23 07:04] LABS: Hematocrit 27.5 % (42.0-52.0); Hemoglobin 9.2 g/dl (14.0-18.0); Mean Corpuscular HGB Conc 33.5 g/dl (31.0-36.0); Mean Corpuscular Hemoglobin 34.7 pg (27.0-33.0); Mean Platelet Volume 11.9 fL (9.4-12.4); Platelet Count 216 X10*3/uL (160-400); Red Blood Count 2.65 X10*6/uL (4.60-5.80); White Blood Count 9.5 X10*3/uL (4.8-10.8)
[2024-09-23 08:10] LABS: Mean Corpuscular Volume 103.8 fL (80.0-98.0)
[2024-09-23] MEDS: Multivitamin TABLET 1 TAB PO (08:26)
[2024-09-23] MEDS: Apixaban 5 MG TABLET PO ×2 (08:26→21:13)
[2024-09-23] MEDS: FLUoxetine HCl 20 MG CAPSULE 40 MG PO (08:26)
[2024-09-23] MEDS: Metoprolol Tartrate 50 MG TABLET PO ×2 (08:26→21:13)
[2024-09-23] MEDS: 0.9 % Sodium Chloride Flush 3 ML SYRINGE IVFLUSH ×3 (08:27→23:45)
[2024-09-23] MEDS: Folic Acid 1 MG TABLET PO (08:27)
[2024-09-23] MEDS: Thiamine HCL 100 MG TABLET PO (08:27)
[2024-09-23] MEDS: risperiDONE 0.5 MG TABLET PO ×2 (08:27→21:13)
[2024-09-23] MEDS: Nicotine 21 MG PATCH.TD24 TRANSDERMA (08:27)
--- NOTE | 2024-09-23 10:32 | MHC.CM.PN ---
Patient lives alone in a trailer but often stays with his Elderly Mother. [employer], Patient was independent, driving & working. Patient may benefit from a PT Eval to assist with disposition; CM has initiated and will follow for dc planning. Patient has not seen his PCP/PA (Kay Salinas) for his initial visit yet. Sister/Julia will transport if Patient is dc'd to home.
[2024-09-23 11:19] LABS: Glucose, Whole Blood 102 mg/dL (60-115)
--- NOTE | 2024-09-23 12:48 | MHC.SL.SWA ---
Speech Pathologist Impression: Risk of Aspiration Due to: Neurological Condition Hx of Recent Extubation Dysphasia Diet Status: Liquid Consistency and Strategies for Safe Swallow: Liquid Intake Recommendation: Thin Liquid Intake Strategies: Small Sips No Straws Solid Food Consistency: Dietary Recommendations: Grnd/Mech Altered (NDD2) Additional Modifications to Solid Foods: Recommend Patient have direct supervision with strict aspiration precautions at meals, given recent extubation after prolonged period of ventilation, oral motor weakness noted. Oral Medication Intake: Crushed with Puree Please contact the pharmacy regarding appropriate crushable or liquid drug formulations that are available whenever modified delivery is recommended. Compensatory Strategies and Precautions to be Taken for Safe Swallow: Sitting Upright (90 deg) No Straw Liquids from Cup Small Bites and Sips Alternate Liquids/Solids Supervision While Eating and Drinking for Safe Swallow: Foods to Avoid: Mixed consistencies, difficult to chew solids. Swallowing Recommended Treatments: Compens. Strategy Educat. Recommendation for Speech: Inpatient Speech Therapy Comment: Patient presents with oral phase dysphagia and dysarthria secondary to unilateral R oral motor weakness, edentulous state. Recommend upgrade from current diet of PUREE to Ground Mechanical (NDD2) continue on thin liquids, pills crushed in puree. Patient likely to need ongoing Speech Therapy care at next level for speech and swallowing, with DIRECTOR OF SOLUTIONS ARCHITECTURE [place] [facility] [place] Recommend 1-1 supervision at meals due to recent extubation after prolonged period of ventilation, neurological impairment, with close supervision for signs of aspiration. DIRECTOR OF SOLUTIONS ARCHITECTURE to follow while inpatient, re-assess for possible upgrade of diet, ongoing assessment of speech related needs. MINERVA VELASCO notified of recommendation by secure text, RN inperson. Frequency/Duration: Date Range for Service Req: Timeline to reassess: Statement Clerk Clinican/Clinical Fellow: No Supervisory Statement: I have reviewed and agree with the student/clinical fellow's documentation: N/A Speech Language Pathologist: Kira Multani M.A., CCC-DIRECTOR OF SOLUTIONS ARCHITECTURE
[2024-09-23 15:41] LABS: Glucose, Whole Blood 93 mg/dL (60-115)
--- NOTE | 2024-09-23 16:00 | P.PNIM_ITS ---
Subjective Subjective Date of Service: 09/23/24 Interval History: Seen and examined this morning Follow-up for dysphagia, septic cavernous sinus thrombosis transferred back from [facility] 09/22 Patient awake, alert Review of Systems Review of Systems: Yes all other systems are reviewed and are negative Constitutional Constitutional: Denies chills and Denies fever(s) Cardiovascular Cardiovascular: Denies chest pain and Denies dyspnea Respiratory Respiratory: Denies dyspnea Physical Exam 2 Vital Signs: Vital Signs: Last Vital Signs Temp 99.2 F 09/23/24 15:26 Pulse 81 09/23/24 15:26 Resp 18 09/23/24 15:26 BP 121/59 L 09/23/24 15: Pulse Ox 96 09/23/24 15: O2 Del Method Room Air 09/23/24 15:26 BMI result Body Mass Index 25.7 Const: Other: left eye shut General: cooperative, comfortable, alert and awake Nutritional Appearance: average body habitus Orientation/consciousness: patient oriented x3 Resp: Effort & Inspection: normal respiratory effort, able to speak in complete sentences, no respiratory distress and no use of accessory muscles Cardio: Rate: regular rate GI: Inspection: No distended Palpation (GI): Soft to palpation and nontender Skin: Other: heels in offloading boots Neuro: Other: left eye closed, mild left facial asymmetry; generalized weakness, speech clear General: patient oriented x3 Objective Data Active Medications Acetaminophen (Acetaminophen 325 Mg Tablet) 650 mg PO Q6H PRN PRN Reason: Pain, Mild 1-3,fever,headache Apixaban (Apixaban 5 Mg Tablet) 5 mg PO BID [facility] Last Admin: 09/23/24 08:26 Dose: 5 mg Documented By: PJ Bisacodyl (Bisacodyl 10 Mg Supp.Rect) 10 mg MT DAILY PRN PRN Reason: Constipation Calcium Carbonate (Calcium Carbonate 750 Mg Tab.Chew) 750 mg PO Q4H PRN PRN Reason: Heartburn Dextrose (Dextrose 50 % 25 Gm/50 Ml Syringe) 25 gm IVPUSH Q15M PRN; Protocol PRN Reason: per Hypoglycemia Standing Ord. Fluoxetine HCl (Fluoxetine Hcl 20 Mg Capsule) 40 mg PO DAILY [facility] Last Admin: 09/23/24 08:26 Dose: 40 mg Documented By: PJ Folic Acid (Folic Acid 1 Mg Tablet) 1 mg PO DAILY [facility] Last Admin: 09/23/24 08:27 Dose: 1 mg Documented By: PJ Glucose (Glucose Gel 15 Gm Gel..Gram.) 15 gm PO Q15M PRN; Protocol PRN Reason: per Hypoglycemia Standing Ord. Insulin Human Lispro (Insulin Lispro 100 Unit/Ml 3 Ml Vial) 0 unit SUBCUT QIDACHS [facility]; Protocol Last Admin: 09/23/24 15:49 Dose: Not Given Documented By: PJ Non-Admin Reason: No Insulin Coverage Lactulose (Lactulose 20 Gm/30 Ml Solution) 20 gm PO DAILY PRN PRN Reason: Constipation Melatonin (Melatonin 3 Mg Tablet) 6 mg PO BEDTIME PRN PRN Reason: Insomnia Metoprolol Tartrate (Metoprolol Tartrate 50 Mg Tablet) 50 mg PO BID [facility]; Protocol Last Admin: 09/23/24 08:26 Dose: 50 mg Documented By: PJ Multivitamins/Vitamin C (Multivitamin Tablet) 1 tab PO DAILY [facility] Last Admin: 09/23/24 08:26 Dose: 1 tab Documented By: PJ Nicotine (Nicotine 21 Mg Patch.Td24) 21 mg TRANSDERMA DAILY [facility] Last Admin: 09/23/24 08:27 Dose: 21 mg Documented By: PJ Risperidone (Risperidone 0.5 Mg Tablet) 0.5 mg PO BID [facility] Last Admin: 09/23/24 08:27 Dose: 0.5 mg Documented By: PJ Sodium Chloride (0.9 % Sodium Chloride Flush 3 Ml Syringe) 3 ml IVFLUSH QSHIFT [facility] Last Admin: 09/23/24 15:50 Dose: 3 ml Documented By: PJ Thiamine HCl (Thiamine Hcl 100 Mg Tablet) 100 mg PO DAILY [facility] Last Admin: 09/23/24 08:27 Dose: 100 mg Documented By: PJ Labs 09/23/24 05:50 09/23/24 05:50 Labs: Laboratory Results - last 24 hr 09/22/24 09/22/24 09/23/24 16:35 20:21 05:50 MCV 103.8 H MCH 34.7 H MCHC 33.5 RDW Not Reportable Plt Count 216 D MPV 11.9 Absolute Nucleated RBC 0.000 Nucleated RBC % (auto) 0.0 Anion Gap 7 L Estim Creat Clear Calc 129.4 Estimated GFR > 60 POC Glucose 104 100 Random Glucose 80 Calcium 7.4 L 09/23/24 09/23/24 09/23/24 06:55 11:16 15:36 MCV MCH MCHC RDW Plt Count MPV Absolute Nucleated RBC Nucleated RBC % (auto) Anion Gap Estim Creat Clear Calc Estimated GFR POC Glucose 84 102 93 Random Glucose Calcium Assessment and Plan (1) Otitis externa: Status: Acute (2) Cavernous sinus thrombosis: Status: Acute (3) Acute otitis externa of right ear: Status: Acute (4) Acute otitis media, right: Status: Acute Plan This is a 64-year-old male with history of depression, remote history of alcohol dependence admitted for suspected otitis media/externa complicated with mastoiditis/orbital involvement/soft tissue abscess, septic cavernous sinus thrombosis and ventriculitis/meningitis, ARDS requiring mechanical ventilation, 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 MRI repeat on 09/12 showed changes suggestive of meningitis and ventriculitis, left superior ophthalmic vein occlusion, nonocclusive bilateral cavernous sinus thrombosis and nonocclusive thrombi in the bilateral IJV likely due to underlying infection. MRV was repeated and redemonstrated nonocclusive filling defect in the bilateral IJV and L transverse sinus indicative of nonocclusive venous thrombus in the setting of meningitis. Follow-up brain MRI on September 20 with stable findings. Patient was treated with heparin drip with improvement in his mental status. Complete a course of antibiotics on September 19 at [facility] Blood Cultures from their facility negative Recommend anticoagulation for 3-6 months, started on Eliquis Repeat MRV at 3 months to re-evaluate clot burden; outpatient vascular Neurology follow-up to assist with the decision making Repeat CT head if any acute changes in mental status Right otitis externa/media Evaluated by ENT not a surgical candidate given no clinical evidence of mastoiditis. Your fluid culture positive for yeast and Bordetella trematum Completed anti-infective eardrop treatment (ciprodex otic drops and hydrocortisone-aceitic acid otic drops) Severe thrombocytopenia due to ITP Status post treatment with IVIG x 5 doses Platelets normalized Anemia Due to chronic disease/inflammation H/H has remained stable. Hbg around 7-8 at labs this morning 9.2/27.5 feels like he probably just forgot where he was waiting for 1 less thing and then Dysphagia Seen by speech therapy, recommend advanced to NDD2 diet with thin liquids Aspiration precautions One-to-one assistance for feeds Respiratory failure with hypoxia due to ARDS, fluid overload Status post bronchoscopy on September 08, findings consistent with diffuse alveolar hemorrhage. Respiratory cultures negative Treated with Solu-Medrol which was weaned during hospital stay Mood Continue fluoxetine, risperdal Remote history of alcohol use disorder Continue thiamine, folic acid Tobacco dependence Continue nicotine replacement Severe aortic stenosis Evaluated by cardiology at [facility] recommended aortic stenosis workup/consideration of surgical intervention be deferred until resolution of acute illness Outpatient follow-up with cardiology recommended After extubation patient had garbled speech and significant left-sided facial droop, left eye complete visual field deficit and weakness in bilateral upper extremities. CTA of head and neck showed no acute findings. A repeat MRI with and without contrast showed no acute territorial infarction or parenchymal hemorrhage. Superior ophthalmic vein thrombus Seen by Ophthalmology noted to have chemosis, proptosis, ophthalmoplegia. Patient had progressive vision loss likely related to severe acute intra-ocular pressure in the setting of thrombosis, poor prognosis from visual recovery perspective, likely to have permanent vision loss in left eye Code status-full code as per documentation from [facility] DVT prophylaxis-initiate Elijosefina PT rec Acute rehab; OT evaluation pending -patient reports he was independent and walking prior to hospitalization, currently dependent for all ADLs. Will likely need extensive rehab Quality Stroke Does the patient have a stroke diagnosis?: No VTE Prior VTE?: No VTE Risk Level:: Medical - moderate - high VTE Device Contraindication: N/A - Device Ordered VTE Drug Contraindication: Treatment Not Indicated
[2024-09-23 21:23] LABS: Glucose, Whole Blood 86 mg/dL (60-115)
[2024-09-24 03:21] VITALS: BP 130/61; PULSE 91; RESP 20; TEMP 37.7; O2SAT 97
[2024-09-24 07:29] VITALS: BP 137/63; PULSE 87; RESP 16; TEMP 36.8; O2SAT 97
[2024-09-24 08:00] LABS: Glucose, Whole Blood 104 mg/dL (60-115)
[2024-09-24 09:05] LABS: Anion Gap 9 (12-20); Blood Urea Nitrogen 16 mg/dL (9-16); Calcium 7.6 mg/dL (8.4-10.2); Carbon Dioxide 21 mmol/L (22-29); Chloride 115 mmol/L (96-108); Creatinine Clr Calc Pharmacy 142.4; Estimated Glomerular Filt Rate > 60; Glucose Random 98 mg/dL (60-115); Potassium 3.9 mmol/L (3.3-5.1); Sodium 141 mmol/L (135-145)
[2024-09-24] MEDS: Nicotine 21 MG PATCH.TD24 TRANSDERMA (09:32)
[2024-09-24] MEDS: FLUoxetine HCl 20 MG CAPSULE 40 MG PO (09:33)
[2024-09-24] MEDS: Metoprolol Tartrate 50 MG TABLET PO ×2 (09:33→20:14)
[2024-09-24] MEDS: risperiDONE 0.5 MG TABLET PO ×2 (09:33→20:14)
[2024-09-24] MEDS: Folic Acid 1 MG TABLET PO (09:33)
[2024-09-24] MEDS: Thiamine HCL 100 MG TABLET PO (09:33)
[2024-09-24] MEDS: Multivitamin TABLET 1 TAB PO (09:33)
[2024-09-24] MEDS: Apixaban 5 MG TABLET PO ×2 (09:33→20:14)
[2024-09-24] MEDS: 0.9 % Sodium Chloride Flush 3 ML SYRINGE IVFLUSH ×3 (09:38→20:17)
--- NOTE | 2024-09-24 10:20 | MHC.CM.PN ---
PT is recommending Acute Rehab; CM will follow.
[2024-09-24 11:02] VITALS: BP 127/56; PULSE 78; RESP 16; TEMP 37.8; O2SAT 97
[2024-09-24 11:19] LABS: Glucose, Whole Blood 124 mg/dL (60-115)
--- NOTE | 2024-09-24 11:56 | P.PNIM_ITS ---
Subjective Subjective Date of Service: 09/24/24 Interval History: Seen and examined this morning Follow-up for dysphagia, placement Awake, alert, in no acute distress Feels like his strength is slowly beginning to improve, was able to feed himself breakfast this morning Review of Systems Review of Systems: Yes all other systems are reviewed and are negative Constitutional Constitutional: Denies chills and Denies fever(s) Cardiovascular Cardiovascular: Denies chest pain, Denies palpitations and Denies dyspnea Respiratory Respiratory: Denies cough and Denies dyspnea Gastrointestinal Gastrointestinal: Denies abdominal pain, Denies nausea and Denies vomiting Endocrine Endocrine: Denies palpitations Physical Exam 2 Vital Signs: Vital Signs: Last Vital Signs Temp 100.1 F 09/24/24 11:02 Pulse 78 09/24/24 11:02 Resp 16 09/24/24 11:02 BP 127/56 L 09/24/24 11:02 Pulse Ox 97 09/24/24 11:02 O2 Del Method Room Air 09/24/24 11:02 BMI result Body Mass Index 25.7 Const: Other: left eye shut General: cooperative, comfortable, alert and awake Nutritional Appearance: average body habitus Orientation/consciousness: patient oriented x3 Resp: Effort & Inspection: normal respiratory effort, able to speak in complete sentences, no respiratory distress and no use of accessory muscles Cardio: Rate: regular rate GI: Inspection: No distended Palpation (GI): Soft to palpation and nontender Skin: Other: heels in offloading boots Neuro: Other: left eye closed, mild left facial asymmetry; generalized weakness, speech clear General: patient oriented x3 Extrem: Other: offloading boots in place; no leg edema Objective Data Active Medications Acetaminophen (Acetaminophen 325 Mg Tablet) 650 mg PO Q6H PRN PRN Reason: Pain, Mild 1-3,fever,headache Apixaban (Apixaban 5 Mg Tablet) 5 mg PO BID [facility] Last Admin: 09/24/24 09:33 Dose: 5 mg Documented By: PJ Bisacodyl (Bisacodyl 10 Mg Supp.Rect) 10 mg SD DAILY PRN PRN Reason: Constipation Calcium Carbonate (Calcium Carbonate 750 Mg Tab.Chew) 750 mg PO Q4H PRN PRN Reason: Heartburn Dextrose (Dextrose 50 % 25 Gm/50 Ml Syringe) 25 gm IVPUSH Q15M PRN; Protocol PRN Reason: per Hypoglycemia Standing Ord. Fluoxetine HCl (Fluoxetine Hcl 20 Mg Capsule) 40 mg PO DAILY [facility] Last Admin: 09/24/24 09:33 Dose: 40 mg Documented By: PJ Folic Acid (Folic Acid 1 Mg Tablet) 1 mg PO DAILY [facility] Last Admin: 09/24/24 09:33 Dose: 1 mg Documented By: PJ Glucose (Glucose Gel 15 Gm Gel..Gram.) 15 gm PO Q15M PRN; Protocol PRN Reason: per Hypoglycemia Standing Ord. Insulin Human Lispro (Insulin Lispro 100 Unit/Ml 3 Ml Vial) 0 unit SUBCUT QIDACHS [facility]; Protocol Last Admin: 09/24/24 11:28 Dose: Not Given Documented By: PJ Non-Admin Reason: No Insulin Coverage Lactulose (Lactulose 20 Gm/30 Ml Solution) 20 gm PO DAILY PRN PRN Reason: Constipation Melatonin (Melatonin 3 Mg Tablet) 6 mg PO BEDTIME PRN PRN Reason: Insomnia Metoprolol Tartrate (Metoprolol Tartrate 50 Mg Tablet) 50 mg PO BID [facility]; Protocol Last Admin: 09/24/24 09:33 Dose: 50 mg Documented By: PJ Multivitamins/Vitamin C (Multivitamin Tablet) 1 tab PO DAILY [facility] Last Admin: 09/24/24 09:33 Dose: 1 tab Documented By: PJ Nicotine (Nicotine 21 Mg Patch.Td24) 21 mg TRANSDERMA DAILY [facility] Last Admin: 09/24/24 09:32 Dose: 21 mg Documented By: PJ Risperidone (Risperidone 0.5 Mg Tablet) 0.5 mg PO BID [facility] Last Admin: 09/24/24 09:33 Dose: 0.5 mg Documented By: PJ Sodium Chloride (0.9 % Sodium Chloride Flush 3 Ml Syringe) 3 ml IVFLUSH QSHIFT [facility] Last Admin: 09/24/24 09:38 Dose: 3 ml Documented By: PJ Thiamine HCl (Thiamine Hcl 100 Mg Tablet) 100 mg PO DAILY [facility] Last Admin: 09/24/24 09:33 Dose: 100 mg Documented By: PJ Labs 09/23/24 05:50 09/24/24 08:19 Labs: Laboratory Results - last 24 hr 09/23/24 09/23/24 09/24/24 15:36 21:14 07:55 Hold Purple Top Anion Gap Estim Creat Clear Calc Estimated GFR POC Glucose 93 86 104 Random Glucose Calcium 09/24/24 09/24/24 08:19 11:11 Hold Purple Top SEE NOTE Anion Gap 9 L Estim Creat Clear Calc 142.4 Estimated GFR > 60 POC Glucose 124 H Random Glucose 98 Calcium 7.6 L Assessment and Plan (1) Dysphagia: Status: Acute Plan This is a 64-year-old male with history of depression, remote history of alcohol dependence admitted for suspected otitis media/externa complicated with mastoiditis/orbital involvement/soft tissue abscess, septic cavernous sinus thrombosis and ventriculitis/meningitis, ARDS requiring mechanical ventilation, 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 MRI repeat on 09/12 showed changes suggestive of meningitis and ventriculitis, left superior ophthalmic vein occlusion, nonocclusive bilateral cavernous sinus thrombosis and nonocclusive thrombi in the bilateral IJV likely due to underlying infection. MRV was repeated and redemonstrated nonocclusive filling defect in the bilateral IJV and L transverse sinus indicative of nonocclusive venous thrombus in the setting of meningitis. Follow-up brain MRI on September 20 with stable findings. Patient was treated with heparin drip with improvement in his mental status. Complete a course of antibiotics on September 19 at [facility] Blood Cultures from their facility negative Recommend anticoagulation for 3-6 months, started on Eliquis Repeat MRV at 3 months to re-evaluate clot burden; outpatient vascular Neurology follow-up to assist with the decision making Repeat CT head if any acute changes in mental status Right otitis externa/media Evaluated by ENT not a surgical candidate given no clinical evidence of mastoiditis. Your fluid culture positive for yeast and Bordetella trematum Completed anti-infective eardrop treatment (ciprodex otic drops and hydrocortisone-aceitic acid otic drops) Severe thrombocytopenia due to ITP Status post treatment with IVIG x 5 doses Platelets normalized Anemia Due to chronic disease/inflammation H/H has remained stable. Hbg around 7-8 at labs this morning 9.2/27.5 feels like he probably just forgot where he was waiting for 1 less thing and then Respiratory failure with hypoxia due to ARDS, fluid overload Status post bronchoscopy on September 08, findings consistent with diffuse alveolar hemorrhage. Respiratory cultures negative Treated with Solu-Medrol which was weaned during hospital stay SVT continue metoprolol Mood Continue fluoxetine, risperdal Remote history of alcohol use disorder Continue thiamine, folic acid Tobacco dependence Continue nicotine replacement Severe aortic stenosis Evaluated by cardiology at [facility] recommended aortic stenosis workup/consideration of surgical intervention be deferred until resolution of acute illness Outpatient follow-up with cardiology recommended After extubation patient had garbled speech and significant left-sided facial droop, left eye complete visual field deficit and weakness in bilateral upper extremities. CTA of head and neck showed no acute findings. A repeat MRI with and without contrast showed no acute territorial infarction or parenchymal hemorrhage. Superior ophthalmic vein thrombus Seen by Ophthalmology noted to have chemosis, proptosis, ophthalmoplegia. Patient had progressive vision loss likely related to severe acute intra-ocular pressure in the setting of thrombosis, poor prognosis from visual recovery perspective, likely to have permanent vision loss in left eye Code status-full code as per documentation from [facility] DVT prophylaxis-initiate Eliquis PT rec Acute rehab; OT evaluation pending -patient reports he was independent and walking prior to hospitalization, currently dependent for all ADLs. Will likely need extensive rehab Quality Stroke Does the patient have a stroke diagnosis?: No VTE Prior VTE?: No VTE Risk Level:: Medical - moderate - high VTE Device Contraindication: N/A - Device Ordered VTE Drug Contraindication: Treatment Not Indicated
[2024-09-24 16:00] VITALS: BP 116/61; PULSE 88; RESP 18; TEMP 37.3; O2SAT 95
[2024-09-24 16:11] LABS: Glucose, Whole Blood 98 mg/dL (60-115)
[2024-09-24 20:03] VITALS: BP 141/62; PULSE 91; RESP 18; TEMP 37.6; O2SAT 96
[2024-09-24 21:14] LABS: Glucose, Whole Blood 93 mg/dL (60-115)
[2024-09-24 23:55] VITALS: BP 142/63; PULSE 85; RESP 20; TEMP 37.2; O2SAT 97
[2024-09-25] VITALS (8 sets, daily range): BP systolic 108–130; BP diastolic 58–70; PULSE 82–100; RESP 18–20; TEMP 36.5–37.3; O2SAT 97–99; BMI 25.7
[2024-09-25 07:14] LABS: Glucose, Whole Blood 97 mg/dL (60-115)
[2024-09-25] MEDS: Acetaminophen 325 MG TABLET 650 MG PO ×2 (08:36→17:03)
[2024-09-25] MEDS: Folic Acid 1 MG TABLET PO (08:37)
[2024-09-25] MEDS: Nicotine 21 MG PATCH.TD24 TRANSDERMA (08:37)
[2024-09-25] MEDS: Multivitamin TABLET 1 TAB PO (08:37)
[2024-09-25] MEDS: Thiamine HCL 100 MG TABLET PO (08:37)
[2024-09-25] MEDS: FLUoxetine HCl 20 MG CAPSULE 40 MG PO (08:37)
[2024-09-25] MEDS: risperiDONE 0.5 MG TABLET PO ×2 (08:37→21:25)
[2024-09-25] MEDS: Metoprolol Tartrate 50 MG TABLET PO ×2 (08:37→21:25)
[2024-09-25] MEDS: Apixaban 5 MG TABLET PO ×2 (08:37→21:25)
[2024-09-25] MEDS: 0.9 % Sodium Chloride Flush 3 ML SYRINGE IVFLUSH ×2 (08:38→21:26)
[2024-09-25 10:59] LABS: Glucose, Whole Blood 116 mg/dL (60-115)
--- NOTE | 2024-09-25 11:17 | P.PNIM_ITS ---
Subjective Subjective Date of Service: 09/25/24 Interval History: Seen and examined this morning Follow-up for dysphagia, placement Awake, alert, in no acute distress Feels like his strength is slowly beginning to improve, was able to feed himself breakfast this morning Review of Systems Review of Systems: Yes all other systems are reviewed and are negative Constitutional Constitutional: Denies chills and Denies fever(s) Cardiovascular Cardiovascular: Denies chest pain, Denies palpitations and Denies dyspnea Respiratory Respiratory: Denies cough and Denies dyspnea Gastrointestinal Gastrointestinal: Denies abdominal pain, Denies nausea and Denies vomiting Endocrine Endocrine: Denies palpitations Physical Exam 2 Vital Signs: Vital Signs: Last Vital Signs Temp 97.9 F 09/25/24 11:06 Pulse 90 09/25/24 11:06 Resp 18 09/25/24 11:06 BP 130/70 09/25/24 11:06 Pulse Ox 98 09/25/24 11:06 O2 Del Method Room Air 09/25/24 11:06 BMI result Body Mass Index 25.7 Appearing in no acute distress lung sounds are clear to auscultation heart regular rate rhythm, clear S1, S2 positive bowel sounds, abdomen is soft, nontender neuro patient is alert x3, no focal deficits Objective Data Active Medications Acetaminophen (Acetaminophen 325 Mg Tablet) 650 mg PO Q6H PRN PRN Reason: Pain, Mild 1-3,fever,headache Last Admin: 09/25/24 08:36 Dose: 650 mg Documented By: NICK Apixaban (Apixaban 5 Mg Tablet) 5 mg PO BID [facility] Last Admin: 09/25/24 08:37 Dose: 5 mg Documented By: NICK Bisacodyl (Bisacodyl 10 Mg Supp.Rect) 10 mg [place] DAILY PRN PRN Reason: Constipation Calcium Carbonate (Calcium Carbonate 750 Mg Tab.Chew) 750 mg PO Q4H PRN PRN Reason: Heartburn Dextrose (Dextrose 50 % 25 Gm/50 Ml Syringe) 25 gm IVPUSH Q15M PRN; Protocol PRN Reason: per Hypoglycemia Standing Ord. Fluoxetine HCl (Fluoxetine Hcl 20 Mg Capsule) 40 mg PO DAILY [facility] Last Admin: 09/25/24 08:37 Dose: 40 mg Documented By: NICK Folic Acid (Folic Acid 1 Mg Tablet) 1 mg PO DAILY [facility] Last Admin: 09/25/24 08:37 Dose: 1 mg Documented By: NICK Glucose (Glucose Gel 15 Gm Gel..Gram.) 15 gm PO Q15M PRN; Protocol PRN Reason: per Hypoglycemia Standing Ord. Insulin Human Lispro (Insulin Lispro 100 Unit/Ml 3 Ml Vial) 0 unit SUBCUT QIDACHS [facility]; Protocol Last Admin: 09/25/24 07:41 Dose: Not Given Documented By: NICK Non-Admin Reason: No Insulin Coverage Lactulose (Lactulose 20 Gm/30 Ml Solution) 20 gm PO DAILY PRN PRN Reason: Constipation Melatonin (Melatonin 3 Mg Tablet) 6 mg PO BEDTIME PRN PRN Reason: Insomnia Metoprolol Tartrate (Metoprolol Tartrate 50 Mg Tablet) 50 mg PO BID [facility]; Protocol Last Admin: 09/25/24 08:37 Dose: 50 mg Documented By: NICK Multivitamins/Vitamin C (Multivitamin Tablet) 1 tab PO DAILY [facility] Last Admin: 09/25/24 08:37 Dose: 1 tab Documented By: NICK Nicotine (Nicotine 21 Mg Patch.Td24) 21 mg TRANSDERMA DAILY [facility] Last Admin: 09/25/24 08:37 Dose: 21 mg Documented By: NICK Risperidone (Risperidone 0.5 Mg Tablet) 0.5 mg PO BID [facility] Last Admin: 09/25/24 08:37 Dose: 0.5 mg Documented By: NICK Sodium Chloride (0.9 % Sodium Chloride Flush 3 Ml Syringe) 3 ml IVFLUSH QSHIFT [facility] Last Admin: 09/25/24 08:38 Dose: 3 ml Documented By: NICK Thiamine HCl (Thiamine Hcl 100 Mg Tablet) 100 mg PO DAILY [facility] Last Admin: 09/25/24 08:37 Dose: 100 mg Documented By: NICK Labs 09/23/24 05:50 09/24/24 08:19 Labs: Laboratory Results - last 24 hr 09/24/24 09/24/24 09/24/24 11:11 15:45 21:00 POC Glucose 124 H 98 93 09/25/24 09/25/24 07:10 10:54 POC Glucose 97 116 H Assessment and Plan (1) Dysphagia: Status: Acute Plan 64-year-old male with history of depression, remote history of alcohol dependence admitted for suspected otitis media/externa complicated with mastoiditis/orbital involvement/soft tissue abscess, septic cavernous sinus thrombosis and ventriculitis/meningitis, ARDS requiring mechanical ventilation, 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 MRI repeat on 09/12 showed changes suggestive of meningitis and ventriculitis, left superior ophthalmic vein occlusion, nonocclusive bilateral cavernous sinus thrombosis and nonocclusive thrombi in the bilateral IJV likely due to underlying infection. MRV was repeated and redemonstrated nonocclusive filling defect in the bilateral IJV and L transverse sinus indicative of nonocclusive venous thrombus in the setting of meningitis. Follow-up brain MRI on September 20 with stable findings. Patient was treated with heparin drip with improvement in his mental status. Complete a course of antibiotics on September 19 at [facility] Blood Cultures from their facility negative Recommend anticoagulation for 3-6 months, started on Eliquis Repeat MRV at 3 months to re-evaluate clot burden; outpatient vascular Neurology follow-up to assist with the decision making Repeat CT head if any acute changes in mental status Right otitis externa/media Evaluated by ENT not a surgical candidate given no clinical evidence of mastoiditis. Your fluid culture positive for yeast and Bordetella trematum Completed anti-infective eardrop treatment (ciprodex otic drops and hydrocortisone-aceitic acid otic drops) Severe thrombocytopenia due to ITP Status post treatment with IVIG x 5 doses Platelets normalized Anemia Due to chronic disease/inflammation H/H has remained stable. Hbg around 7-8 at labs this morning 9.2/27.5 feels like he probably just forgot where he was waiting for 1 less thing and then Respiratory failure with hypoxia due to ARDS, fluid overload Status post bronchoscopy on September 08, findings consistent with diffuse alveolar hemorrhage. Respiratory cultures negative Treated with Solu-Medrol which was weaned during hospital stay SVT continue metoprolol Mood Continue fluoxetine, risperdal Remote history of alcohol use disorder Continue thiamine, folic acid Tobacco dependence Continue nicotine replacement Severe aortic stenosis Evaluated by cardiology at [facility] recommended aortic stenosis workup/consideration of surgical intervention be deferred until resolution of acute illness Outpatient follow-up with cardiology recommended After extubation patient had garbled speech and significant left-sided facial droop, left eye complete visual field deficit and weakness in bilateral upper extremities. CTA of head and neck showed no acute findings. A repeat MRI with and without contrast showed no acute territorial infarction or parenchymal hemorrhage. Superior ophthalmic vein thrombus Seen by Ophthalmology noted to have chemosis, proptosis, ophthalmoplegia. Patient had progressive vision loss likely related to severe acute intra-ocular pressure in the setting of thrombosis, poor prognosis from visual recovery perspective, likely to have permanent vision loss in left eye Code status-full code as per documentation from [facility] DVT prophylaxis-initiate Eliquis PT rec Acute rehab; OT evaluation pending -patient reports he was independent and walking prior to hospitalization, currently dependent for all ADLs. Will likely need extensive rehab Quality Stroke Does the patient have a stroke diagnosis?: No VTE Prior VTE?: No VTE Risk Level:: Medical - moderate - high VTE Device Contraindication: N/A - Device Ordered VTE Drug Contraindication: Treatment Not Indicated
--- NOTE | 2024-09-25 11:58 | MHC.CLN ---
RE: CONSULT PT WITH INCREASED NUTRITION RISK R/T PRESSURE INJURY PO INTAKE 75-100% X4 MEALS DIET RX: 2000DM GRD M/S-RECOMMEND INCREASING TO 2200DM TO MEET KCAL NEEDS AND PROMOTE WOUND HEALING RECOMMEND ADDING ENSURE MAX TID TO PROMOTE WOUND HEALING SUPP TO PROVIDE 450KCALS, 90G PROTEIN MONITOR PO INTAKE AND ENCOURAGE SUPPLEMENTS SEE ALSO FULL CLINICAL NUTRITION ASSESSMENT
--- NOTE | 2024-09-25 12:12 | HO.WOUND ---
Wound Consult: Initial 64yr old?male admitted to [facility] on 09/22/24- See progress notes and H&P for detailed history.? Wound consult placed for Sacrum.? Patient agreeable to assessment and photo documentation.? AMY pump in use. Heel boot protectors in use. Sacrum Etiology: ??Unstageable Pressure Injury Present on Admission Measurements: 4cm x 6cm x 0.2cm Wound Bed: black brown thickened necrotic tissue Drainage / Odor: scant small serosang Edges: ? irregular and attached Veronica wound: pink red erythema ? No Induration, Fluctuance or Warmth noted Pain: pain reported Goals of Treatment: ? Off load pressure and triad and foam application Bilateral heels assessed - remain intact and no injury or redness noted at this time - heel protector boots applied. Recommendations: 1. Turn and Reposition every 2 hours and as needed for patient comfort.? Use pillows or wedges to support off loading positions. 2. Off Load all bony prominences with use of pillows and heel boots if needed.? Apply Preventative foams where needed. ?Heel Protector boots in use. 3. Monitor for incontinence and moisture control, use barrier creams when needed for prevention and treatment. 4. Provide adequate and supplemental nutrition.? 5. Continue low air loss mattress. 6. When applicable maintain blood glucose levels per Providers order. Sacrum - Off Load Pressure with Q2 hr turns and use of pillows - Cleanse with PH balance spray or wipes, pat dry. ?Apply thin layer of Triad to wound bed. Do not remove all of paste between applications as this may cause further skin damage.? Cover with foam dressing to aid in off loading and protection from friction. Change every 3 days and PRN. Re-consult wound care Nurse for wound deterioration or wound changes.
--- NOTE | 2024-09-25 15:49 | MHC.SLORD ---
Speech Language Pathology Order Status: Pt seen for dysphagia treatment but had eaten already. SAFETY ADMINISTRATOR conducted motor speech screen as L sided facial droop persists, resulting in mild to moderate dysarthria. Pt participated in motor speech assessment to obtain baseline of articulatory agility. WOB observed in short responses. Assessment of Diadokokinetic Rate/[place] Sequences/Conversational Speech: Reduced tarsha, decreased precision in bilabial CV sequences Slowed rated, limited repetition in tip-alveolar CV sequences Adequate rate, production of approximated /k/ in final sequences Improved precision of connected CVCVCV productions Increased rate of speech with rote counting 1-10, adequate tarsha of continued counting 11-20. Mild to moderate dysarhria evident in structured tasks and conversational speech, increased work of breathing, short rushes of speech, inconsistent rate control. Recc direct SAFETY ADMINISTRATOR intervention
--- NOTE | 2024-09-25 16:02 | PM.DS ---
DS: Providers Provider Date of Service: 09/26/24 Date of admission: 09/22/24 15:32 Date of discharge: 09/26/24 Primary care physician: Kay Salinas Consults: 09/25/24 12:04 Consult to Wound Care Routine Reason for consultation: Sacrum DS: Diagnosis Discharge Diagnosis (1) Dysphagia: Status: Acute DS: Summary Hospital Course Hospital Course: History and physical from 09/07/2024 Patient is a 63-year-old male with past medical history depression, alcohol abuse with cessation 15 years ago, tobacco use 1/2 pack per day for 50 years was brought in by ambulance due to mild altered mental status, left eye swelling, tongue selling and severe right ear pain. Patient states his symptoms started Wednesday evening after getting out of work. Pt has been sleeping a lot more since Wednesday per family. 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 Patient developed a headache with left ear pain. 2 days prior pt's left eye also became swollen treatment was started. Patient's sister just arrived back from [place] yesterday and advocated for pt to be seen in ED and called 911. Patient currently denies any chest pain, shortness of breath at rest, abdominal pain, nausea, vomiting, lower leg pain, dysuria. Patient states the pain in his left ear has improved. Patient can not see out of left eye currently due to the swelling. Pt reports he has chronic R ear pain and will often instill hydrogen peroxide and clean ear out with Qtip. Pt last did this 2 weeks ago In the emergency department, lactic acid was 3.6, white blood count 10.2. Temp 101.0 on arrival. Pt did experience a one time episode of SVT in the 210s. Pt's converted to ST (110) and did not require adenosine. Pt received IVF and albumin. HR currently 95-110. ECG repeated, rate 98, SR, RBBB noted, PACs, QTC 503. Patient was started on sepsis protocol and received IV fluids at 30 milligrams/kilogram, vanco, Zosyn and initially ceftriaxone. Chest CT identified aspiration or endobronchial pneumonia. Initially patient was referred for admission here at [facility] but because we do not have ENT services, pt was deferred. The emergency room reached out to the ENT department at [facility] and after further review ENT indicated that patient would not need transfer as surgery is not indicated and pt does not have mastoiditis. The abscess can be treated with antibiotics here at [facility]. Patient received a wick to the left ear and moxifloxacin eardrops. In addition patient received erythromycin ointment to the left eye which is currently fully closed with fair acuity. Pt denies pain in either eye. Patient is requiring an OxyMask for hypoxia, noting patient is a mouth breather. Urine positive for LE and Nitrites, neg for bacteria and low WBCs. Urine culture and Blood cultures pending. Patient's platelet count was 7000 and Hematology was consulted through the ED and they recommended at least 1 unit of platelets. No history to suggest HIT. Patient does have some mild bruising on the right lower leg but no petechiae found and the haptoglobin and LDH are within normal limits. Goal is to maintain platelets greater than 20,000. Per patient's sister there was a report that patient 2 days ago had a bowel movement that was dark and tarry. Patient denies any spontaneous bleeding issues. Guaiac was positive in the ED. Patient admits that he has not had any primary care in over 5 years when patient suffered from a mental breakdown after losing his job. Patient has been able to maintain his paroxetine and risperidone. Pt is not suicidal. Hospital course: 64-year-old man treated at [facility] and [facility]. Complicated admission. He was initially admitted to [facility] on 09/07/2024 for 7 this, acute hypoxic respiratory failure secondary to pneumonia, right ear abscess, left eye infection and severe thrombocytopenia. He had received 30 mL/kg IV fluid bolus in the ER. He had a wick in his right ear receiving moxifloxacin eardrops and erythromycin to the left eye for swelling. He was started on IV vancomycin and Zosyn and treated with OxyMask secondary to acute hypoxic respiratory failure. He also at that time was noted to have metabolic encephalopathy likely secondary to fever/sepsis. Severe thrombocytopenia with 7000 platelets initially and positive guaiac stool. Noted splenomegaly on CT scan with no evidence of hemolysis or spontaneous bleeding or hit. Patient received platelet transfusion. DC summary from 09/07/24 as per discharging provider He was admitted to the telemetry unit. His platelet count this morning is 6, and I have ordered another 2 units of pheresis platelets. His oxygen requirement has increased to 8L via Oxymask, and I have ordered high-flow nasal cannula. I noted his left eye to be proptotic with complete CN III and palsies. I broadened his anti-infective coverage to vancomycin + meropenem + caspofungin. I obtained stat MRV/MRI of the brain which showed left extra-ocular muscle enlargement and edema with left superior ophthalmic vein enlargement and possible thrombosis, highly suggestive of left carvenous sinus thrombosis. The right mastoid had a tympanic space effusion and cerumen impaction in the external auditory canal. The right temporalis muscle had extensive edema concerning for direct extension of mastoiditis and right cavernous sinus thrombosis. The right sphenoparietal sinus appeared thrombosed. At that point, I reached out to [facility] and [facility] for transfer, as he needs consultation by specialists not available in our facility [ophthalmology and otolaryngology]. He was accepted to the [facility] MICU by waiter/waitress room service Dr Danny Barr . Readmission History and physical from 09/22/24 History and physical as per admitting provider. This is a 64-year-old male who was originally seen in the emergency department here [facility] on September 07 admitted for the following CT of the head showed otitis media, otitis externa with soft tissue abscess, and mastoiditis. ENT consultation was recommended. The ED reached out to ENT at [facility], who declined transfer as the patient did not need surgical intervention in their opinion. Blood cultures and right ear culture were sent. He was given 30 cc/kg of normal saline IV plus vancomycin and piperacillin-tazobactam.He was admitted to the hospital. oxygen requirement worsened and he required high-flow nasal cannula. His left eye to be proptotic with complete CN III and palsies. He was started on vancomycin + meropenem + caspofungin. MRV/MRI of the brain which showed left extra-ocular muscle enlargement and edema with left superior ophthalmic vein enlargement and possible thrombosis, highly suggestive of left carvenous sinus thrombosis. The right mastoid had a tympanic space effusion and cerumen impaction in the external auditory canal. The right temporalis muscle had extensive edema concerning for direct extension of mastoiditis and right cavernous sinus thrombosis. The right sphenoparietal sinus appeared thrombosed. For these reasons he was transferred to [facility] for specialist evaluation including ophthalmology and otolaryngology. He accepted to the MICU at [facility]. 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 He has had treatment of above medical issues and [facility] has requested to transfer him back for placement. Patient is awake, alert in no acute distress and has no specific complaints at this time. Patient denies pain in his left eye, unable to open the eye which has been persistent since admission. Hospital course: Septic cavernous sinus thrombosis/Bilateral nonocclusive thrombus of IVJ/Meningitis/ventriculitis MRI suggestive of left cavernous sinus thrombosis. MRI repeat on 09/12 showed changes suggestive of meningitis and ventriculitis, left superior ophthalmic vein occlusion, nonocclusive bilateral cavernous sinus thrombosis and nonocclusive thrombi in the bilateral IJV likely due to underlying infection. MRV was repeated and redemonstrated nonocclusive filling defect in the bilateral IJV and L transverse sinus indicative of nonocclusive venous thrombus in the setting of meningitis. Follow-up brain MRI on September 20 with stable findings. Patient was treated with heparin drip with improvement in his mental status. Completed a course of antibiotics on September 19 at [facility] Blood Cultures from their facility negative Recommend anticoagulation for 3-6 months, started on Eliquis Repeat MRV at 3 months to re-evaluate clot burden; outpatient vascular Neurology follow-up to assist with the decision making Right otitis externa/media Evaluated by ENT not a surgical candidate given no clinical evidence of mastoiditis. 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 Respiratory failure with hypoxia due to ARDS, fluid overload Status post bronchoscopy on September 08, findings consistent with diffuse alveolar hemorrhage. Respiratory cultures negative Treated with Solu-Medrol which was weaned during hospital stay SVT continue metoprolol Mood Continue fluoxetine, risperdal Remote history of alcohol use disorder Continue thiamine, folic acid Tobacco dependence Continue nicotine replacement Severe aortic stenosis Evaluated by cardiology at [facility] recommended aortic stenosis workup/consideration of surgical intervention be deferred until resolution of acute illness Outpatient follow-up with cardiology recommended After extubation patient had garbled speech and significant left-sided facial droop, left eye complete visual field deficit and weakness in bilateral upper extremities. CTA of head and neck showed no acute findings. A repeat MRI with and without contrast showed no acute territorial infarction or parenchymal hemorrhage. Superior ophthalmic vein thrombus Seen by Ophthalmology noted to have chemosis, proptosis, ophthalmoplegia. Patient had progressive vision loss likely related to severe acute intra-ocular pressure in the setting of thrombosis, poor prognosis from visual recovery perspective, likely to have permanent vision loss in left eye Time Attestation Discharge Coordination Time (in mins): 60 Quality: Safe Use of Opioids Does Pt have an Active Cancer Diagnosis on the Problem List?: No Quality: Stroke Does the patient have a stroke diagnosis?: No Physical Exam Vital Signs: Vital Signs: Last Vital Signs Temp 98.1 F 09/25/24 15:51 Pulse 100 09/25/24 15:51 Resp 18 09/25/24 15:51 BP 126/61 09/25/24 15:51 Pulse Ox 98 09/25/24 15:51 O2 Del Method Room Air 09/25/24 15:51 BMI result Body Mass Index 25.7 Appearing in no acute distress head is normocephalic atraumatic Left eye closed shut, blindness mouth throat mucous membranes are intact and moist neck is supple no lymphadenopathy, no JVD noted lung sounds are clear to auscultation heart regular rate rhythm, clear S1, S2 positive bowel sounds, abdomen is soft, nontender neuro patient is alert x3, no focal deficits Eye ptosis DS: Data Data Completed and Pending Completed studies during hospitalization [Text1]: Procedures Transfusion of Nonautologous Platelets into Peripheral Vein, Percutaneous Approach (09/07/24) Labs on day of discharge: Laboratory Results - last 24 hr 09/24/24 09/24/24 09/25/24 15:45 21:00 07:10 POC Glucose 98 93 97 09/25/24 10:54 POC Glucose 116 H Discharge Plan Discharge Anticipated Discharge Date/Time: 09/26/24 13:20 Patient Disposition: Xfer Inpatient Rehab Fac Discharge Diagnosis: Dysphagia Septic cavernous sinus thrombosis Bilateral nonocclusive thrombus of IV J Meningitis/ventriculitis Right otitis externa/media Severe thrombocytopenia ITP Respiratory failure with hypoxia secondary to ARDS Referrals: Kay Salinas [Other] - [address] [facility] [Outside] - 1 Week Discharge Medications: New Eliquis 5 mg Tablet 5 mg PO BID Qty: 60 0RF Continued fluoxetine 40 mg capsule 40 mg PO DAILY risperidone 0.5 mg tablet 0.5 mg PO BID acetaminophen 325 mg Tablet 325 mg PO QID PRN (Reason: Fever/Pain/Headache) thiamine HCl (vitamin B1) 100 mg Tablet 100 mg PO DAILY multivitamin with minerals Liquid 15 ml PO DAILY bisacodyl 10 mg Suppository 10 mg MA DAILY PRN (Reason: Constipation) Rx Instructions: if no bm on day 2 metoprolol tartrate 50 mg Tablet 50 mg PO Q12H nicotine 21 mg/24 hr Patch 24 Hour 1 patch TRANSDERMAL DAILY folic acid 1 mg Tablet 1 mg PO DAILY insulin lispro 100 unit/mL Insulin Pen 1 - 6 unit SUBCUT QIDACHS lactulose 10 gram/15 mL Solution 30 ml PO DAILY PRN (Reason: Constipation) Discharge Orders: Discharge Order (Routine); Ordered 09/26/24 Ordered By: Sangeeta Lopez Diet: Advance to usual diet Activity on Discharge: As tolerated Stand Alone Forms: Patient Portal Discharge page Print Language: Sinhala Care Plan Goals: Transfer to acute care rehab facility Health Concerns: Dysphagia Septic cavernous sinus thrombosis Bilateral nonocclusive thrombus of IV J Meningitis/ventriculitis Right otitis externa/media Severe thrombocytopenia ITP Respiratory failure with hypoxia secondary to ARDS Plan of Treatment: Follow up with primary care provider as needed Take all medications as prescribed Assessment: See discharge summary
--- NOTE | 2024-09-25 16:03 | MHC.CM.PN ---
[facility] has offered a bed. The patient accepts the bed offer. Janak is waiting to hear back from [facility]. The provider is aware that discharge may happen today.
[2024-09-25 16:20] LABS: Glucose, Whole Blood 95 mg/dL (60-115)
[2024-09-25 19:37] LABS: Glucose, Whole Blood 108 mg/dL (60-115)
[2024-09-26 02:58] VITALS: BP 127/64; PULSE 87; RESP 18; TEMP 36.7; O2SAT 98
[2024-09-26 07:03] VITALS: BP 136/61; PULSE 75; RESP 18; TEMP 36.7; O2SAT 97
[2024-09-26 07:15] LABS: Glucose, Whole Blood 100 mg/dL (60-115)
[2024-09-26 10:22] LABS: Anion Gap 9 (12-20); Blood Urea Nitrogen 12 mg/dL (9-16); Calcium 7.6 mg/dL (8.4-10.2); Carbon Dioxide 22 mmol/L (22-29); Chloride 109 mmol/L (96-108); Creatinine Clr Calc Pharmacy 158.2; Estimated Glomerular Filt Rate > 60; Glucose Random 99 mg/dL (60-115); Magnesium 1.8 mg/dL (1.6-2.6); Potassium 3.9 mmol/L (3.3-5.1); Sodium 136 mmol/L (135-145)
[2024-09-26] MEDS: Metoprolol Tartrate 50 MG TABLET PO (10:29)
[2024-09-26] MEDS: Nicotine 21 MG PATCH.TD24 TRANSDERMA (10:29)
[2024-09-26] MEDS: Apixaban 5 MG TABLET PO (10:29)
[2024-09-26] MEDS: Multivitamin TABLET 1 TAB PO (10:29)
[2024-09-26] MEDS: risperiDONE 0.5 MG TABLET PO (10:29)
[2024-09-26] MEDS: FLUoxetine HCl 20 MG CAPSULE 40 MG PO (10:29)
[2024-09-26] MEDS: Thiamine HCL 100 MG TABLET PO (10:29)
[2024-09-26] MEDS: Folic Acid 1 MG TABLET PO (10:29)
[2024-09-26] MEDS: 0.9 % Sodium Chloride Flush 3 ML SYRINGE IVFLUSH ×2 (10:30→16:10)
[2024-09-26 10:34] LABS: Hematocrit 25.6 % (42.0-52.0); Hemoglobin 9.2 g/dl (14.0-18.0); Mean Corpuscular HGB Conc 35.9 g/dl (31.0-36.0); Mean Corpuscular Hemoglobin 36.2 pg (27.0-33.0); Mean Corpuscular Volume 100.8 fL (80.0-98.0); Mean Platelet Volume 10.5 fL (9.4-12.4); Platelet Count 157 X10*3/uL (160-400); Red Blood Count 2.54 X10*6/uL (4.60-5.80); White Blood Count 8.4 X10*3/uL (4.8-10.8)
[2024-09-26 11:38] VITALS: BP 119/62; PULSE 77; RESP 22; TEMP 37; O2SAT 96
[2024-09-26 11:41] LABS: Glucose, Whole Blood 106 mg/dL (60-115)
--- NOTE | 2024-09-26 12:42 | MHC.SL.SWA ---
Risk of Aspiration Due to: Neurological Condition Hx of Recent Extubation Dysphasia Diet Status: No change Liquid Consistency and Strategies for Safe Swallow: Liquid Intake Recommendation: Thin Liquid Intake Strategies: Small Sips No Straws Solid Food Consistency: Dietary Recommendations: Grnd/Mech Altered (NDD2) Additional Modifications to Solid Foods: Recommend Patient have direct supervision with strict aspiration precautions at meals, given recent extubation after prolonged period of ventilation, oral motor weakness noted. Oral Medication Intake: Crushed with Puree Please contact the pharmacy regarding appropriate crushable or liquid drug formulations that are available whenever modified delivery is recommended. Compensatory Strategies and Precautions to be Taken for Safe Swallow: Sitting Upright (90 deg) Supervision While Eating and Drinking for Safe Swallow: Total Assistance (1:1) Foods to Avoid: Mixed consistencies, difficult to chew solids. Swallowing Recommended Treatments: Compens. Strategy Educat. Recommendation for Speech: Inpatient Speech Therapy Patient presents with oral phase dysphagia and dysarthria secondary to unilateral R oral motor weakness, edentulous state. Recommend continue w/ GROUND/Mechanical (NDD2), thin liquids, pills crushed in puree. Pt requires 1-1 assistance feeding. Recommend CALIBRATION SPECIALIST tx for dysphagia and dysarthria during hospitalization and following d/c if difficulties persist. Hog Grader Clinican/Clinical Fellow: No Supervisory Statement: I have reviewed and agree with the student/clinical fellow's documentation: N/A Speech Language Pathologist: Mili Pino M.A., [facility]-CALIBRATION SPECIALIST
--- NOTE | 2024-09-26 14:33 | MHC.CM.PN ---
Pt is medically cleared for discharge to acute rehab at [facility] (insurance auth obtained). Pt will transport there via BLS/[facility]. Pt is aware and in agreement with discharge plan.
[2024-09-26 15:21] VITALS: BP 124/65; PULSE 77; RESP 16; TEMP 36.8; O2SAT 98
[2024-09-26 16:34] LABS: Glucose, Whole Blood 94 mg/dL (60-115)
== END 2024-09-26 18:17 | DRG 254 ==
PROVIDERS: Admitting Provider Physician Assistant Medical; PCP Internal Medicine; Visit Provider Nurse Practitioner Acute Care
DX: R13.10 Dysphagia, unspecified (principal); G08 Intracranial and intraspinal phlebitis and thrombophlebitis; D69.3 Immune thrombocytopenic purpura; I82.C13 Acute embolism and thrombosis of internal jugular vein, bilateral; D63.8 Anemia in other chronic diseases classified elsewhere; I47.10 Supraventricular tachycardia, unspecified; I35.0 Nonrheumatic aortic (valve) stenosis; H60.91 Unspecified otitis externa, right ear; H66.91 Otitis media, unspecified, right ear; F39 Unspecified mood [affective] disorder; F10.91 Alcohol use, unspecified, in remission; F17.210 Nicotine dependence, cigarettes, uncomplicated; Z71.6 Tobacco abuse counseling; Z79.899 Other long term (current) drug therapy
CPT/HCPCS: 36415; 80048; 82947; 83735; 85027; 92507; 92610; 97110; 97163; 97167; 97530; 99222

== ENCOUNTER → 2024-09-22 15:32 | Outpatient (BNV) | payer OTHER, SELFPAY | PROVIDERS: Admitting Provider Physician Assistant Medical; Visit Provider Physician Assistant Medical | DX: H60.91 Unspecified otitis externa, right ear (principal); G08 Intracranial and intraspinal phlebitis and thrombophlebitis; H60.501 Unspecified acute noninfective otitis externa, right ear; H66.91 Otitis media, unspecified, right ear | CPT/HCPCS: 99223; 99232; 99233; 99239; 99499 ==

== ENCOUNTER 2024-10-13 14:08 | Emergency (ER) | payer OTHER, SELFPAY ==
[2024-10-13] VITALS (7 sets, daily range): BP systolic 98–138; BP diastolic 46–80; PULSE 54–67; RESP 16–18; TEMP 36.3–37.2; O2SAT 96–99; BMI 26.2
--- NOTE | ~2024-10-13 | CT_ITS ---
CLINICAL HISTORY: headache --- Additional Notes or Special Instructions: history of Septic cavernous sinus thrombosis Bilateral CT sinuses with contrast Comparison: CT/HI/SR - CT HEAD/BRAIN W IV CON - 09/06/24 20:35 EDT Findings: Rim enhancing extraconal collections in the superior and superolateral left orbit measuring 2.3 x 1.5 x 2.1 cm in the superior orbit along the superior rectus muscle and 1.8 x 1.5 x 0.6 cm in the superolateral orbit just above the lateral rectus muscle. This is causing mass effect on the adjacent left globe. Transverse, sigmoid and visualized sagittal sinuses are patent. Limited evaluation of the cavernous sinus on this study. Paranasal sinuses are clear. Opacified right mastoid air cells and middle ear cavity with soft tissue density in the external auditory canal. Degree of opacification is decreased when compared to 09/06/2024. No osseous erosion. No acute fractures. Intracranial atherosclerosis. IMPRESSION: 1. 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 2. Right mastoid and middle ear opacification, improved from prior. This document has been electronically signed by: Gordy Briones MD on 10/13/2024 18:38:24
--- NOTE | ~2024-10-13 | CT_ITS ---
CLINICAL HISTORY: stage [address] abdomen and pelvis without contrast Comparison: CT/SR - CT ABDOMEN PELVIS W IV CON - 09/06/24 20:35 EDT Findings: Mild dependent atelectasis in the right lower lobe. Normal size heart with trace pericardial effusion. Layering sludge versus vicarious excretion of contrast in the gallbladder. Atrophic pancreas. Liver, spleen, and adrenal glands are within normal limits. No hydronephrosis. Right parapelvic cyst. Exophytic cysts in the posterior left kidney. No bowel obstruction, pneumoperitoneum, or pneumatosis. Aortic atherosclerosis. No aneurysm. Prostatomegaly. No acute fracture. No soft tissue abscess or evidence of osteomyelitis. IMPRESSION: 1. No acute intraabdominal or pelvic pathology. 2. No soft tissue abscess or evidence of osteomyelitis. This document has been electronically signed by: Gordy Briones MD on 10/13/2024 21:45:16
--- NOTE | 2024-10-13 14:20 | ED.EAR ---
HPI - Ear Problem General Chief complaint: Ear Problems Stated complaint: R EAR PAIN Time Seen by Provider: 10/13/24 14:20 Source: family (Sister at bedside corroborating history) Mode of arrival: EMS Limitations: no limitations History of Present Illness ED Provider: Deborah Holden PA-C HPI Narrative: 64-year-old male with PMHx of AUD with cessation of 15 yrs, depression, recent hospitalization with acute hypoxic respiratory failure due to pneumonia, right ear abscess, left eye conjunctivitis, and severe thrombocytopenia requiring him to be intubated and transferred to [facility], on . Patient presents to the ED today accompanied by his sister due to increased headaches and progressive right ear pain. His sister also reports Patient was [facility] on [facility]. His sister states he has been complaining of worsening headaches daily, and persistent R ear pain. Patient was recently admitted to [facility] with a complicated admission on 09/07/2024 patient was septic and received IV vancomycin, meropenem, capsofungin. He had a wick placed in the right ear and was receiving moxifloxacin eardrops and erythromycin to left eye due to severe conjunctivitis. He was then transferred to [facility] on 09/07/2024 MRI revealed septic cavernous sinus thrombosis, bilateral nonocclusive thrombus of the IVJ/meningitis/ventriculitis, left superior ophthalmic vein occlusion. Patient completed a course of antibiotics on 09/19 at [facility]. Complaint: ear pain and other (headache ) Location: right ear Duration: constant Severity: moderate Relieving factors: nothing Exacerbating factors: nothing Context: recent illness Discharge from ear: yes - purulent Associated symptoms ear: headache and ear swelling Treatment prior to arrival: none Related Data Home Medications ?Medication ?Instructions ?Recorded ?Confirmed fluoxetine 40 mg capsule 40 mg PO DAILY 09/07/24 09/22/24 risperidone 0.5 mg tablet 0.5 mg PO BID 09/07/24 09/22/24 acetaminophen 325 mg tablet 325 mg PO QID PRN 09/22/24 09/22/24 Fever/Pain/Headache bisacodyl 10 mg rectal suppository 10 mg FL DAILY PRN Constipation 09/22/24 09/22/24 folic acid 1 mg tablet 1 mg PO DAILY 09/22/24 09/22/24 insulin lispro 100 unit/mL 1 - 6 unit subcut QIDACHS 09/22/24 09/22/24 subcutaneous pen lactulose 10 gram/15 mL oral 30 ml PO DAILY PRN Constipation 09/22/24 09/22/24 solution metoprolol tartrate 50 mg tablet 50 mg PO Q12H 09/22/24 09/22/24 multivitamin with minerals 15 ml PO DAILY 09/22/24 09/22/24 nicotine 21 mg/24 hr daily 1 patch transdermal DAILY 09/22/24 09/22/24 transdermal patch thiamine HCl (vitamin B1) 100 mg 100 mg PO DAILY 09/22/24 09/22/24 tablet Previous Rx's ?Medication ?Instructions ?Recorded apixaban 5 mg tablet (Eliquis) 5 mg PO BID #60 tabs 09/25/24 Allergies Allergy/AdvReac Type Severity Reaction Status Date / Time No Known Allergies Allergy Verified 10/13/24 14:23 [No Known Allergies*] Review of Systems Review of Systems: CONST: Negative for fever, body aches and chills. HENT: Negative for neck pain/stiffness, congestion, sore throat, swelling. POS headace, right side ear pain, with indurated mass of auricle EYES: Pos pain, vision loss, drainage, edema of L eye RESP: Negative for cough/hemoptysis and shortness of breath. CV: Negative chest pain, difficulty breathing, palpitations. ABD: Negative pain, nausea, vomiting. : Negative increase frequency, dysuria, blood in urine or stool. MUSC: Negative for muscle aches, edema. SKIN: POS for sacrum ulcer NEURO: Negative lightheadedness, dizziness, weakness. Yes all other systems are reviewed and are negative [facility] Past Medical History Medical History (Updated 10/14/24 @ 00:00 by Zeina Can) Cavernous sinus thrombosis Social History Social History Household Members: None Housing: House Do you presently have visiting nurse or other home services: No Alcohol intake: former Comment: pt stopped drinking 15 years ago, drank 6-8 beers per day Patient Tobacco Use Status: Never used Tobacco service: No Physical Exam Vital Signs: Vital Signs: Last Vital Signs Temp 98 F 10/13/24 23:13 Pulse 67 10/13/24 23:13 Resp 18 10/13/24 23:13 BP 103/51 L 10/13/24 23:13 Pulse Ox 96 10/13/24 23:13 O2 Del Method Room Air 10/13/24 23:13 BMI result Body Mass Index 26.2 General: Awake, alert in no distress Head: Normocephalic, atraumatic EENT: EYES:R side- PERRL, Lids normal, sclera normal, conjunctiva normal, L side- No extraoccular movement, chemosis, no vision present, no corneal reflex. EARS: R TM unable to be visualized, purulent draingage present in internal canal. Indurated mass of external canal, mild tragus edema. nose normal , throat without erythema or exudates Neck: Supple, no adenopathy, trachea midline and nontender Lung: breath sounds symmetric, no wheezing, rales or rhonchi Heart: regular rate and rhythm, normal S1, S2 no murmurs or rubs Abdomen: soft, non-tender, nondistended Extremities: no deformities, moves all extremities symmetrically. No pitting edema B/L Skin: no rashes. Stage 3 sacral wound questionable purulence vs. granulation tissue Neuro: Awake, alert, oriented, normal speech, moves all extremities symmetrically Psych: Pleasant, cooperative, slight cognitive deficit. Const: General: cooperative, no acute distress and tired appearing; No diaphoretic or intoxicated appearing Nutritional Appearance: thin Orientation/consciousness: patient oriented x3 Limitations: ambulation with walker HEENT: Other: Head: Yes normal to inspection, Yes No palpable skull fracture present, Yes normocephalic and Yes atraumatic Ears: hearing grossly normal bilaterally, TM normal on the right (TM unable to be visualized due to extensive debris with purulence see photo), TM normal on the left, mastoids normal and external ear abnormal (R ear with indurated mass of the auricle) General nose exam: Normal external nose present Face and sinus: Yes sinuses nontender (sinuses tender to palpation), No ecchymosis, No erythema, No edema and No fluctuance Eyes: General: appearance abnormal, both eyes (L eye with chemosis, EOM not intact, proptosis, loss of vision,) Eyelids: Yes eyelid abnormality Skin: Other: Neuro: General: patient oriented x3 Medications Administered Discontinued Medications Generic Name Dose Route Start Last Admin Trade Name Freq PRN Reason Stop Dose Admin Piperacillin Sod/Tazobactam 50 mls @ 100 mls/hr 10/13/24 19:11 10/13/24 21:39 Sod 3.375 gm/ Sodium Chloride IV 10/13/24 19:40 Infused ONCE ONE Infusion Vancomycin HCl 2,000 mg in 500 mls @ 250 mls/hr 10/13/24 19:11 10/13/24 22:54 Vancomycin/Ns IV 10/13/24 21:10 Infused ONCE ONE Infusion Iohexol 85 ml 10/13/24 17:52 10/13/24 17:52 Iohexol 350 Mg/Ml 100 Ml Infus..Btl IV 10/13/24 17:53 85 ml ONCE ONE Administration Medical Decision Making Medical Decision Making [facility] Narrative: 64-year-old male with PMHx of AUD with cessation of 15 yrs, depression, recent hospitalization here with acute hypoxic respiratory failure due to pneumonia, right ear abscess, left eye conjunctivitis, and severe thrombocytopenia requiring him to be intubated and transferred to [facility], on . Patient presents to the ED today accompanied by his sister due to increased headaches, progressive right ear pain and pain of his sacral wound. His sister also reports Patient was recently discharged from [facility] rehab facility on Wednesday 10/11. His sister states he has been complaining of worsening headaches daily, and persistent R ear pain. Patient was recently admitted to [facility] with a complicated admission on 09/07/2024 patient was septic and received IV vancomycin, meropenem, capsofungin. He had a wick placed in the right ear and was receiving moxifloxacin eardrops and erythromycin to left eye due to severe conjunctivitis. He was then transferred to [facility] on 09/07/2024 MRI revealed septic cavernous sinus thrombosis, bilateral nonocclusive thrombus of the IVJ/meningitis/ventriculitis, left superior ophthalmic vein occlusion. Patient completed a course of antibiotics on 09/19 at [facility]. Labs reveal elevated CRP- .68, ESR-102. 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 Right mastoid and middle ear opacification, improved from prior. Tonal pen used to evaluate L eye pressure and revealed an average of 18mmhg. Awaiting CT for abdomen pelvis to evaluate extent of sacral wound. Course 18:18- Stage 3 Sacral wound dressing changed. 19:11- IV zosyn and vanco started empirically for orbital cellulitis/abscess of L eye. Patient does not meet clinical picture for sepsis. Does not need sepsis protocol at this time. [facility] consulted for transfer of care. Currently awaiting call back as they are consulting ophthalmology. 20:26- [facility] recommended consult to [facility]. Currently awaiting contact for ophthalmology consult. 21:05- Case discussed with my attending Dr. Sarkar who is resuming care of the patient. Currently awaiting contact with [facility]. Patient was taken for CT abdomen/pelvis, currently awaiting read from radiologist. Patient and his sister updated on plan. They are in agreement and understand we are awaiting potential transfer. 22:00 I, Dr. Gregory Sarkar, personally evaluated and examined the patient. I reviewed the physician study assistant's documentation . I agree with the treatment and plan. I assumed care of this patient at 19:00 hours. My summary of the case is below: 61-year-old male with a past medical history of depression, tobacco abuse [1/2 ppd x 50yr], and AUD in remission [last drink 15 yr ago] admitted here on 09/07/2024 for acute pneumonia, thrombocytopenia, respiratory failure with hypoxia, cavernous sinus thrombosis, mastoiditis, SVT and otitis externa who required transfer to [facility] second-degree every to lack of ENT coverage. The patient was treated at [facility] and then discharged to acute rehab for 2 weeks. Patient was discharged home on 10/11/2024. The patient's sister states that he was weak but he was able to walk with a walker and was eating well (patient is on a moist/minced/level 5 chopped and thickened diet). The visiting nurse saw him today for the 1st time and the patient complained of right-sided frontal headache, bilateral eye pain and right ear pain. A piece of foul-smelling cotton was removed from the patient's right ear. Workup in the emergency department revealed two extra conal abscesses in the left orbit with mass effect on the globe measuring 2.3 cm and right mastoid and middle ear opacification which the radiologist states improved compared to the prior study. CT scan of the abdomen pelvis revealed no intra-abdominal or pelvic pathology, no soft tissue abscess or evidence of osteomyelitis. Laboratory evaluation revealed a normal white blood cell count of 9300. Patient had a microcytic anemia with an H&H of 10.4 and 29.6 with an MCV of 99.0. Platelet count was normal at 279,000 (on 09/07/2024 platelet count was 6000). Urinalysis was negative. Patient was treated with Zosyn 3.375 mg IV and vancomycin 2 g IV. He did not require any pain medications. I did discuss the patient's presentation with the transfer line at [facility] and he was accepted as a transfer, Dr. Vipin Muro was the accepting physician. Unfortunately, the radiology department states that they can not make this at this time since the machine used to transfer images to a compact this is malfunction at this time. The patient did not take his nighttime dose of Eliquis this evening. Differential Diagnosis Differential Diagnoses: The differential diagnosis associated with the presentation includes malignant otitis externa Electrolyte abnormality Orbital entrapment Cellulitis Admission/Observation Consideration of admission/observation: Escalation of care including admission/observation considered (Yes) Consult Healthcare Provider Management of the patient was discussed with: Java Analyst (ENT consult to [facility], and [facility] transfer line) Lab Data MDM Lab Attestation statement: I reviewed the patient's lab results. 10/13/24 15:25 10/13/24 15:25 Labs: Lab Results 10/13/24 10/13/24 Range/Units 15:25 19:32 WBC 9.3 (4.8-10.8) X10*3/uL RBC 2.99 L (4.60-5.80) X10*6/uL Hgb 10.4 L (14.0-18.0) g/dl Hct 29.6 L (42.0-52.0) % MCV 99.0 H (80.0-98.0) fL MCH 34.8 H (27.0-33.0) pg MCHC 35.1 (31.0-36.0) g/dl RDW 16.3 H (11.0-16.0) % Plt Count 279 D (160-400) X10*3/uL MPV 9.1 L (9.4-12.4) fL Immature Gran % (Auto) 0.8 H (0.0-0.4) % Neut % (Auto) 69.7 (45-73) % Lymph % (Auto) 15.0 L (20-40) % Yell % (Auto) 12.5 H (2-11) % Eos % (Auto) 1.7 (0-4) % Baso % (Auto) 0.3 (0-2) % Lymph # (Auto) 1.4 (1.2-4.9) X10*3/uL Yell # (Auto) 1.2 (0.1-1.2) X10*3/uL Eos # (Auto) 0.2 (0.0-0.4) X10*3/uL Baso # (Auto) 0.0 (0.0-0.2) X10*3/uL Abs Immat Gran (auto) 0.07 H (0.00-0.03) X10*3/uL Absolute Neuts (auto) 6.4 (2.0-8.3) x10*3/uL Absolute Nucleated RBC 0.000 (0.0-0.012) X10*3/uL Nucleated RBC % (auto) 0.0 (0.0-0.2) /100WBC ESR 102 H (0-15) MM/HR Sodium 138 (135-145) mmol/L Potassium 4.6 (3.3-5.1) mmol/L Chloride 104 (96-108) mmol/L Carbon Dioxide 26 (22-29) mmol/L Anion Gap 13 (12-20) BUN 12 (9-16) mg/dL Creatinine 0.67 (0.5-1.4) mg/dL Estim Creat Clear Calc 112.8 Estimated GFR > 60 Random Glucose 101 (60-115) mg/dL Lactic Acid 0.9 (0.5-2.0) mmol/L Calcium 8.9 D (8.4-10.2) mg/dL Magnesium 2.2 (1.6-2.6) mg/dL Total Bilirubin 0.5 (0.0-1.0) mg/dL AST 119 H (5-37) U/L ALT 178 H (0-40) U/L Alkaline Phosphatase 180 H (39-117) U/L C-Reactive Protein 0.68 H (< or = 0.50) mg/dL Total Protein 6.6 (6.5-8.0) g/dL Albumin 3.3 L (3.5-5.0) g/dL Urine Color Yellow Urine Appearance Clear Urine pH 7.5 (5.0-9.0) Ur Specific [place] 1.025 (1.005-1.025) Urine Protein Negative (Neg-Trace) mg/dL Urine Glucose (UA) Negative (Negative) mg/dL Urine Ketones Negative (Negative) mg/dL Urine Blood Negative (Negative) Urine Nitrite Negative (Negative) Ur Leukocyte Esterase Negative (Negative) Urine RBC 0-2 (0-2) /HPF Urine WBC 0-5 (0-5) /HPF Ur Squamous Epith Cells 0-2 (0-2) /HPF Urine Bacteria None Seen (None Seen) Hyaline Casts 0-2 (0-2) /LPF Independent Interpretation I performed an independent interpretation of an: CT Scan Radiology Impression Radiologist Impression: CT Sinus Findings: Rim enhancing extraconal collections in the superior and superolateral left orbit measuring 2.3 x 1.5 x 2.1 cm in the superior orbit along the superior rectus muscle and 1.8 x 1.5 x 0.6 cm in the superolateral orbit just above the lateral rectus muscle. This is causing mass effect on the adjacent left globe. Transverse, sigmoid and visualized sagittal sinuses are patent. Limited evaluation of the cavernous sinus on this study. Paranasal sinuses are clear. Opacified right mastoid air cells and middle ear cavity with soft tissue density in the external auditory canal. Degree of opacification is decreased when compared to 09/06/2024. No osseous erosion. No acute fractures. Intracranial atherosclerosis. IMPRESSION: 1. 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 2. Right mastoid and middle ear opacification, improved from prior. This document has been electronically signed by: Gordy Briones MD on 10/13/2024 18:38:24 CT abdomen and pelvis without contrast Comparison: CT/SR - CT ABDOMEN PELVIS W IV CON - 09/06/24 20:35 EDT Findings: Mild dependent atelectasis in the right lower lobe. Normal size heart with trace pericardial effusion. Layering sludge versus vicarious excretion of contrast in the gallbladder. Atrophic pancreas. Liver, spleen, and adrenal glands are within normal limits. No hydronephrosis. Right parapelvic cyst. Exophytic cysts in the posterior left kidney. No bowel obstruction, pneumoperitoneum, or pneumatosis. Aortic atherosclerosis. No aneurysm. Prostatomegaly. No acute fracture. No soft tissue abscess or evidence of osteomyelitis. IMPRESSION: 1. No acute intraabdominal or pelvic pathology. 2. No soft tissue abscess or evidence of osteomyelitis. This document has been electronically signed by: Gordy Briones MD on 10/13/2024 21:45:16 Independent Historian Clinical information obtained from an independent historian. History obtained from or confirmed by: Other (sister at bedside ) External Record Review External record reviewed: Inpatient record, Office record, Outpatient record and Prior outpatient labs See this section of attached [facility] medical evaluation. This is the extent of the information of the L eye findings. Chronic Conditions Patient?s care impacted by: Other (L eye abscess with mass effect) Attestation Attending Attestation: I was personally present and available for consultation in the ED and independently examined this patient and performed the components of the E&M independently. I have reviewed everything on the chart that is available and agree with the documentation provided by the PHI including discussion about the assessment, treatment plan and discussion. Based on medical record the care appears appropriate. This is a very complicated patient who had a recent lengthy stay for alveolar hemorrhage, ARDS, septic right-sided cavernous thrombus otitis externa and media on the right side. Family tells us that he was diagnosed as being blind in the left side with persistent swelling of the left eye but no other definitive diagnosis were told to us nor are they on the paperwork from recent rehab stay this reveals ?conjunctivitis ?of the left eye only. 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 No thunderclap. He has been on apixaban since the cavernous and bilateral IJ diagnosis of thrombosis. He is also demonstrating a stage III decubitus ulcer which has been progressively worsening per the family. Hemodynamics are stable no fever. Sinus CT was performed probably normal healing and improvement of the right-sided ENT issues however incidentally we have identified peribulbar abscesses in the left eye. The left eye shows proptosis with a fixed mid range pupil severe chemosis and mild conjunctival injection. He only has minimal extraocular movements with this side. At this time, 19:20 we will give broad-spectrum antibiotics and try to contact [facility] where he was evaluated with multiple head and facial MRIs and saw Neuro-Ophthalmology specialists to see whether this is acute or chronic. Tonometry performed at bedside by myself reveals an average of about 18 mmHg which is reassuring he does however clinically I proptosis and as I said has minimal extraocular movements. Sarath Isabel MD [facility] Emergency Medicine Critical Care Time Critical Care Time Critical Care Time: Yes Total Critical Care Time: 45 Attestation: Critical Care: The patient was critically ill with a high probability of imminent or life threatening deterioration. I spent greater than 30 minutes of discontinuous time evaluating the patient,delivering critical care at the bedside, discussing and evaluating pertinent data with consultants. Critical care time does not include time spent performing separately billable procedures or teaching. Total time spent performing critical care was 45 minutes. Blindness, intra orbital abscesses. Numerous consultations clinical reassessments of the patient. Outside hospital consultations Sarath Isabel MD Discharge Plan Discharge Clinical Impression: Acute mastoiditis of right side, Acute right otitis media, Left orbital abscess, Decubitus ulcer of sacral area Patient Disposition: er [facility] Transfer Details: ED to [facility] accepting physician is Dr. Vipin Chatman Prescriptions: No Action fluoxetine 40 mg capsule 40 mg PO DAILY risperidone 0.5 mg tablet 0.5 mg PO BID acetaminophen 325 mg Tablet 325 mg PO QID PRN (Reason: Fever/Pain/Headache) thiamine HCl (vitamin B1) 100 mg Tablet 100 mg PO DAILY multivitamin with minerals Liquid 15 ml PO DAILY bisacodyl 10 mg Suppository 10 mg FL DAILY PRN (Reason: Constipation) Rx Instructions: if no bm on day 2 metoprolol tartrate 50 mg Tablet 50 mg PO Q12H nicotine 21 mg/24 hr Patch 24 Hour 1 patch TRANSDERMAL DAILY folic acid 1 mg Tablet 1 mg PO DAILY insulin lispro 100 unit/mL Insulin Pen 1 - 6 unit SUBCUT QIDACHS lactulose 10 gram/15 mL Solution 30 ml PO DAILY PRN (Reason: Constipation) Eliquis 5 mg Tablet 5 mg PO BID Qty: 60 0RF Interventions: Acute Care Transfer Worksheet (ED) Last Done: 10/13/24 23:13 Discharge Date/Time: 10/13/24 23:15 Print Language: Icelandic
--- NOTE | 2024-10-13 14:28 | PC.NURSE ---
Pt comes to ED today via EMS from [facility]. Chief complaint is a lump to R ear x2 week along with swelling to L eye x2 weeks. Pt with Hx of severe R ear infection. Pt denies pain and decreased hearing to R ear but c/o pain to L eye. Pt denies difficulty swallowing. Pt A&Ox3 VSS, afebrile. Skin is warm and dry. Breaths and speech are unlabored.
[2024-10-13 15:30] LABS: MANUAL DIFF FLAG NO
[2024-10-13 15:33] LABS: Basophils Percent Auto 0.3 % (0-2); Eosinophils Absolute Auto 0.2 X10*3/uL (0.0-0.4); Eosinophils Percent Auto 1.7 % (0-4); Hematocrit 29.6 % (42.0-52.0); Hemoglobin 10.4 g/dl (14.0-18.0); Imm Gran Abs Auto 0.07 X10*3/uL (0.00-0.03); Imm Gran Pct Auto 0.8 % (0.0-0.4); Lymphocytes Absolute Auto 1.4 X10*3/uL (1.2-4.9); Mean Corpuscular HGB Conc 35.1 g/dl (31.0-36.0); Mean Corpuscular Hemoglobin 34.8 pg (27.0-33.0); Mean Platelet Volume 9.1 fL (9.4-12.4); Monocytes Absolute Auto 1.2 X10*3/uL (0.1-1.2); Monocytes Percent Auto 12.5 % (2-11); Neutrophils Absolute Auto 6.4 x10*3/uL (2.0-8.3); Neutrophils Percent Auto 69.7 % (45-73); Platelet Count 279 X10*3/uL (160-400); Red Blood Count 2.99 X10*6/uL (4.60-5.80); Red Cell Distribution Width 16.3 % (11.0-16.0); White Blood Count 9.3 X10*3/uL (4.8-10.8)
--- NOTE | 2024-10-13 15:39 | MHC.CM.ED ---
Received notification from registration that patient requesting to complete HCP. Met with patient. HCP completed, signed and witnessed. Original given to patient. Copy placed in chart.
[2024-10-13 15:46] LABS: Lactic Acid 0.9 mmol/L (0.5-2.0)
[2024-10-13 15:53] LABS: Alanine Aminotransferase 178 U/L (0-40); Albumin Level 3.3 g/dL (3.5-5.0); Anion Gap 13 (12-20); Aspartate Amino Transferase 119 U/L (5-37); Bilirubin Total 0.5 mg/dL (0.0-1.0); Blood Urea Nitrogen 12 mg/dL (9-16); C Reactive Protein 0.68 mg/dL (< or = 0.50); Calcium 8.9 mg/dL (8.4-10.2); Carbon Dioxide 26 mmol/L (22-29); Chloride 104 mmol/L (96-108); Creatinine Clr Calc Pharmacy 112.8; Estimated Glomerular Filt Rate > 60; Glucose Random 101 mg/dL (60-115); Magnesium 2.2 mg/dL (1.6-2.6); Potassium 4.6 mmol/L (3.3-5.1); Sodium 138 mmol/L (135-145); Total Protein 6.6 g/dL (6.5-8.0)
[2024-10-13 16:11] LABS: Erythrocyte Sedimentation Rate 102 MM/HR (0-15)
[2024-10-13 16:24] LABS: Alkaline Phosphatase 180 U/L (39-117)
[2024-10-13] MEDS: iohexoL 350 MG/ML 100 ML INFUS..BTL 85 ML IV (17:52)
--- NOTE | 2024-10-13 18:33 | PC.NURSE ---
This RN and KRISTA Cabrera to bedside for eval of reported wound to coccyx. Pt with wound to coccyx; Per Pt daily wound care however care was not completed today. Old DSG taken down; DSG wet with thick shannon drainage. Stage 4 wound present--photos in chart. Wound cleansed with NS and pat dry with sterile gauze. Large pink foam DSG applied. Pt tolerated treatment well.
[2024-10-13 19:51] LABS: Appearance Urine Clear; Color Urine Yellow; Glucose Urine UA Negative (Negative); Leukocyte Esterase Urine Negative (Negative); Nitrite Urine Negative (Negative); PH 7.5 (5.0-9.0); Specific Gravity - Urine 1.025 (1.005-1.025); Urine Blood Negative (Negative); Urine Ketones Negative (Negative); Urine Protein Negative (Neg-Trace)
[2024-10-13 19:56] LABS: Bacteria Urine None Seen (None Seen); Hyaline Casts Urine 0-2 /LPF (0-2); RBC Urine 0-2 /HPF (0-2); Squamous Epithelial Cell Urine 0-2 /HPF (0-2); WBC Urine 0-5 /HPF (0-5)
[2024-10-13] MEDS: Piperacillin Sodium/Tazobactam 3.375 GM in 0.9 % Sodium Chloride 50 ML IV (20:28)
[2024-10-13] MEDS: vancomycin/NS 2,000 MG/500 ML PLAST..BAG 250 MG IV (20:28)
--- NOTE | 2024-10-13 23:12 | PC.NURSE ---
report given to Maude RN at [facility], appropriate paperwork provided, patient transferred via EMS in stable condition
== END 2024-10-13 23:15 | disposition short-term general hospital (02) ==
PROVIDERS: Emergency Provider Emergency Medicine Emergency Medical Services; PCP Internal Medicine
DX: H70.001 Acute mastoiditis without complications, right ear (principal); H92.01 Otalgia, right ear; L89.150 Pressure ulcer of sacral region, unstageable; H05.012 Cellulitis of left orbit; R51.9 Headache, unspecified; R10.2 Pelvic and perineal pain; H10.89 Other conjunctivitis; Z79.899 Other long term (current) drug therapy
CPT/HCPCS: 36415; 70487; 74176; 80053; 81001; 83605; 83735; 85025; 85652; 86140; 87040; 96365; 96367; 99285; J2543; J3370; Q9967

== ENCOUNTER → 2024-10-13 15:02 | Outpatient (BNV) | payer OTHER, SELFPAY | PROVIDERS: Emergency Provider Emergency Medicine; PCP Internal Medicine; Visit Provider Radiology Diagnostic Radiology | DX: L89.153 Pressure ulcer of sacral region, stage 3 (principal); H05.012 Cellulitis of left orbit; H74.8X1 Other specified disorders of right middle ear and mastoid | CPT/HCPCS: 70487; 74176 ==